=== PATIENT | female | born 1965 | race Caucasian/White ===

== ENCOUNTER 2017-09-29 12:00 | Emergency (ER) | payer OTHER, SELFPAY ==
[2017-09-29 12:01] VITALS: BP 136/74; PULSE 83; RESP 16; TEMP 36.8; O2SAT 97; BMI 31.9
--- NOTE | 2017-09-29 12:25 | ED.VISSUMM ---
- ER Visit Summary Date of Service: 09/29/17 Chief Complaint: Dog bite History of Present Illness: The patient is a 52 F who has a dog bite to the nose. It is her son's dog. He is up-to-date on his immunizations. She states that she needs a tetanus shot. She has no other issues. Physical Examination: Vital signs reviewed. Skin exam reveals a 1.5 cm laceration at the tip of the nose on the right-hand side. It is not through Test Results: None indicated Emergency Department Course and Treatment: Patient was educated that we usually do not repair these. She is understandable. She is a type I diabetic so she will be placed on Augmentin. I will update her tetanus and she will follow-up with her PCP Treatment Plan: [] Disposition: Discharge Impression: Dog bite, nose This note was generated with [employer] dictation software. It may contain incorrect words, spelling, and punctuation that were not noted in review of the chart prior to signing ED Disposition - Plan for ED Patient: Chief Complaint: Bite Referrals: [facility] Doctor,Out of [Primary Care Provider] -
--- NOTE | 2017-09-29 12:26 | ED.DEP ---
ED Disposition - Plan for ED Patient: Disposition: Home or Assisted Living Chief Complaint: Bite Instructions: ED Bite Dog Prescriptions: Amox/Clavulanate Tablet [Augmentin Tablet] 875 mg PO Q12H #14 tab Referrals: [facility] Doctor,Out of [Primary Care Provider] -
[2017-09-29] MEDS: Diphth,Pertuss(Acell),Tet Vac 0.5 ML Vial IM (12:32)
== END 2017-09-29 12:38 | disposition home or self-care (01) ==
LOC: ED 12:34
PROVIDERS: Emergency Provider Emergency Medicine
DX: S00.37XA Other superficial bite of nose, initial encounter (principal); W54.0XXA Bitten by dog, initial encounter; Y93.9 Activity, unspecified; Y92.9 Unspecified place or not applicable; E10.22 Type 1 diabetes mellitus with diabetic chronic kidney disease; E10.40 Type 1 diabetes mellitus with diabetic neuropathy, unspecified; N18.9 Chronic kidney disease, unspecified; Z79.4 Long term (current) use of insulin; Z79.899 Other long term (current) drug therapy
CPT/HCPCS: 90471; 90715; 99283

== ENCOUNTER → 2018-02-20 15:22 | Outpatient (CLI) | payer OTHER, SELFPAY ==
[2018-02-20 17:34] LABS: Microalbumin,Random Urine 20.6 mg/L (NO RANGE EST.); Microalbumin:Creatinine Ratio 22.2 mg/g CRE (<30 mg/g CRE)
[2018-02-20 17:39] LABS: Hemoglobin A1c 7.4 % (4.2-6.3)
[2018-02-20 17:52] LABS: AST(SGOT) 32 U/L (15-37); Alanine Aminotransfer ALT/SGPT 41 U/L (13-56); Albumin, Serum 3.7 g/dL (3.2-5.0); Alkaline Phosphatase 69 U/L (45-117); Anion Gap 7 (5-15); BUN 19 mg/dL (7-18); Calcium,Total 9.1 mg/dL (8.5-10.1); Chloride 102 mmol/L (98-107); Cholesterol 157 mg/dL (200); Creatinine, Serum 1.19 mg/dL (0.55-1.02); EST Glomerular Filtration Rate 51 mL/min (>60); Est Glom Filt Rate - Afr Amer 61 mL/min (>60); Globulin 3.8 g/dL (2.2-4.2); Glucose 158 mg/dL (74-106); High Density Lipoprotein 56 mg/dL; Potassium 4.6 mmol/L (3.5-5.1); Protein, Total 7.5 g/dL (6.4-8.2); Sodium Level 142 mmol/L (136-145); Thyroid Stim Hormone (TSH) 0.53 uIU/mL (0.358-3.74); Triglycerides 75 mg/dL; Very Low Density Lipoprotein 15 mg/dL (5-40)
== END ==
PROVIDERS: Visit Provider Nurse Practitioner
DX: E10.9 Type 1 diabetes mellitus without complications (principal)
CPT/HCPCS: 36415; 80053; 80061; 82043; 82570; 83036; 84443

== ENCOUNTER 2018-03-06 06:39 | Emergency (ER) | payer OTHER, SELFPAY ==
[2018-03-06 06:40] VITALS: BP 105/55; PULSE 80; RESP 18; TEMP 36.6; O2SAT 100; BMI 30.8
[2018-03-06 07:27] LABS: Absolute Lymphocyte Count 1.76 X10^3/ul (0.83-4.51); Absolute Neutrophil Count 5.1 X10^3/uL (2.0-7.7); Basophil# 0.02 X10^3/uL; Basophil% 0.3 % (0-1); Eosinophil# 0.27 X10^3/uL; Eosinophils% 3.5 % (0-5); Hematocrit 34.3 % (37-47); Hemoglobin 11.6 g/dl (12.0-15.0); Lymphocyte # 1.76 X10^3/ul (4.0); Lymphocyte % 22.7 % (19-41); Mean Corp Hgb Conc 33.8 g/gl (32-36); Mean Corpuscular Hgb 31.2 pg (27.0-32.0); Mean Corpuscular Volume 92.2 fL (81-99); Mean Platelet Vol. 8.8 fl (6.2-12.0); Monocyte% 7.8 % (0-10); Neutrophil # 5.08 X10^3/uL (2.7-7.7); Neutrophil % 65.6 % (47-70); Platelet Count 209 K/mm3 (150-450); RBC Distribution Width CV 11.9 % (11.6-14.6); RBC Distribution Width SD 39.1 fl (35.1-43.9); Red Blood Count 3.72 M/mm3 (4.2-5.4); White Blood Count 7.7 K/mm3 (4.4-11.0)
[2018-03-06 07:28] LABS: POSITIVE COUNT NO; POSITIVE DIFFERENTIAL NO; POSITIVE MORPHOLOGY NO
[2018-03-06] MEDS: 0.9% Normal Saline 1,000 ML 1000 ML IV (07:30)
[2018-03-06] MEDS: proMETHazine 25 MG/ML Syringe 12.5 MG IV (07:30)
[2018-03-06] MEDS: HYDROmorphone 1 MG/ML Syringe IV (07:31)
[2018-03-06 07:36] LABS: AST(SGOT) 40 U/L (15-37); Alanine Aminotransfer ALT/SGPT 48 U/L (13-56); Albumin, Serum 3.5 g/dL (3.2-5.0); Alkaline Phosphatase 64 U/L (45-117); Anion Gap 6 (5-15); BUN 26 mg/dL (7-18); BUN/Creat Ratio 17.8 RATIO (10-20); Chloride 101 mmol/L (98-107); Creatinine, Serum 1.46 mg/dL (0.55-1.02); EST Glomerular Filtration Rate 40 mL/min (>60); Est Glom Filt Rate - Afr Amer 48 mL/min (>60); Estimated Creatinine Clearance 37.71 ml/min; Globulin 3.6 g/dL (2.2-4.2); Glucose 195 mg/dL (74-106); Potassium 4.3 mmol/L (3.5-5.1); Protein, Total 7.1 g/dL (6.4-8.2); Sodium Level 141 mmol/L (136-145)
[2018-03-06 07:53] LABS: Lactic Acid 1.1 mmol/L (0.4-2.0)
[2018-03-06 08:23] LABS: Mucous, Urine 0 SEEN /hpf (<or=2+); Squamous Epithelial Cells - UA 0 SEEN /hpf (5-10)
[2018-03-06 08:25] LABS: Color, Urine Yellow (Yellow); Glucose, Dipstick Normal (Normal); Ketone-Dipstick Negative (Negative); Leukocyte Esterase-Dipstick 500 /ul (Negative); Nitrite-Dipstick Negative (Negative); Occult Blood-Urine 250 /ul (Negative); Protein-Dipstick 500 mg/dl (Negative); Specific Gravity, Urine 1.015 (1.002-1.030); Urine Bilirubin Dipstick Negative (Negative); Urine Clarity Turbid (Clear); Urine Urobilinogen Normal (Normal)
[2018-03-06 08:31] LABS: Bacteria 2+ /hpf (None Seen); Red Blood Cells-Urine 5-10 SEEN /hpf (0-5); White Blood Cells >100 SEEN /hpf (0-5)
--- NOTE | 2018-03-06 08:31 | ED.DCSUM_ITS ---
- ER Visit Summary Date of Service: 03/06/18 Chief Complaint: Left flank pain History of Present Illness: The patient is a 52 F who states that she feels that she has a kidney infection. She states she has had this numerous times before. She states that last night she decided that she would take a Cipro this morning but she is awoken during the night with the pain in the left flank that is not controlled with her fentanyl patch. Patient states she has history of diabetes with DKA and has a neurogenic bladder for which she self caths. She denies any fevers but states she feels chilled and has nausea and she took a Phenergan prior to arrival. Physical Examination: Afebrile vital signs are stable Gen: Well-nourished well-developed Head: Normocephalic atraumatic Eyes: Perrl EOMI ENT: TMs clear no rhinorrhea moist mucous membranes Neck: Supple no lymphadenopathy no JVD nontender CVS: Regular rate rhythm no murmurs normal S1-S2 Respiratory: No distress clear to auscultation bilaterally chest nontender Abdomen: Soft left lower quadrant tenderness without guarding or rebound nondistended normal bowel sounds no masses Back: Left CVA tenderness Extremity: Nontender no edema Skin: Normal color no rash Neuro: alert orientated ?3 CN II-XII intact normal strength sensation reflexes gait cerebellar Psych: Normal affect normal mood Test Results: CBC CMP ketones and lactic acid were within the normal range. Urinalysis with greater than 100 white blood cells 2+ bacteria 5-10 red blood cells 0 epithelial cells. Emergency Department Course and Treatment: Patient received IV fluids. She received a dose of the Dilaudid. Patient will receive a prescription for Cipro as she states that this is worked well for her in the past. I do not see a urine culture done at this institution. We will do one today. Patient was given return instructions and notes understanding. Impression: 1. Left pyelonephritis This note was generated with [employer] (acquired by [employer] in 2014) dictation software. It may contain incorrect words, spelling, and punctuation that were not noted in review of the chart prior to signing ED Disposition - Plan for ED Patient: Disposition: Home or Assisted Living Chief Complaint: Flank Pain Instructions: ED Kidney Infec Female Prescriptions: Ciprofloxacin [Cipro] 500 mg PO BID #14 tab Additional Instructions: Drink plenty of fluids Monitor for fever and monitor your blood sugar.
[2018-03-06 09:05] VITALS: BP 129/66; PULSE 71; RESP 16; O2SAT 98
== END 2018-03-06 09:11 | disposition home or self-care (01) ==
PROVIDERS: Emergency Provider Emergency Medicine
DX: N12 Tubulo-interstitial nephritis, not specified as acute or chronic (principal); N31.9 Neuromuscular dysfunction of bladder, unspecified; E78.00 Pure hypercholesterolemia, unspecified; K21.9 Gastro-esophageal reflux disease without esophagitis; E11.22 Type 2 diabetes mellitus with diabetic chronic kidney disease; N18.9 Chronic kidney disease, unspecified; K58.9 Irritable bowel syndrome, unspecified; Z79.82 Long term (current) use of aspirin; Z79.4 Long term (current) use of insulin; Z79.899 Other long term (current) drug therapy
CPT/HCPCS: 80053; 81001; 82009; 83605; 85025; 87086; 87088; 96374; 96375; 99284; J7030; P9612; A4216

== ENCOUNTER → 2018-08-02 16:09 | Outpatient (CLI) | payer OTHER, SELFPAY ==
[2018-08-02 16:07] VITALS: BMI 31.9
[2018-08-02 17:03] LABS: Hemoglobin A1c 7.7 % (4.2-6.3)
[2018-08-02 17:10] LABS: AST(SGOT) 23 U/L (15-37); Alanine Aminotransfer ALT/SGPT 28 U/L (13-56); Alkaline Phosphatase 82 U/L (45-117); Anion Gap 5 (5-15); BUN 30 mg/dL (7-18); BUN/Creat Ratio 23.1 RATIO (10-20); Calcium,Total 9.5 mg/dL (8.5-10.1); Chloride 101 mmol/L (98-107); Cholesterol 191 mg/dL (200); EST Glomerular Filtration Rate 46 mL/min (>60); Est Glom Filt Rate - Afr Amer 55 mL/min (>60); Glucose 172 mg/dL (74-106); High Density Lipoprotein 72 mg/dL; Microalbumin,Random Urine 11.7 mg/L (NO RANGE EST.); Potassium 4.5 mmol/L (3.5-5.1); Sodium Level 138 mmol/L (136-145); Triglycerides 97 mg/dL; Very Low Density Lipoprotein 19 mg/dL (5-40)
== END ==
PROVIDERS: Referring Provider Nurse Practitioner; Visit Provider Nurse Practitioner
DX: E10.9 Type 1 diabetes mellitus without complications (principal)
CPT/HCPCS: 36415; 80053; 80061; 82043; 82570; 83036

== ENCOUNTER → 2020-12-21 11:48 | Outpatient (CLI) | payer OTHER, SELFPAY ==
[2020-12-21 11:08] VITALS: BMI 34.4
[2020-12-21 15:23] LABS: Absolute Lymphocyte Count 1.67 X10^3/uL (0.83-4.51); Absolute Neutrophil Count 5.1 X10^3/uL (2.0-7.7); Basophil# 0.06 X10^3/uL; Basophil% 0.8 % (0-1); Eosinophil# 0.19 X10^3/uL; Eosinophils% 2.6 % (0-5); Hematocrit 38.2 % (37-47); Hemoglobin 12.4 g/dL (12.0-15.0); Lymphocyte # 1.67 X10^3/ul (0.83-4.51); Lymphocyte % 22.5 % (19-41); Mean Corp Hgb Conc 32.5 g/dL (32-36); Mean Corpuscular Hgb 29.4 pg (27.0-32.0); Mean Corpuscular Volume 90.5 fL (81-99); Mean Platelet Vol. 9.8 fl (6.2-12.0); Monocyte# 0.35 X10^3/uL; Monocyte% 4.7 % (0-10); NRBC Flagged by Analyzer 0 % (0-5); Neutrophil # 5.12 X10^3/uL (2.7-7.7); Neutrophil % 69.1 % (47-70); Platelet Count 360 K/mm3 (150-450); RBC Distribution Width CV 11.4 % (11.6-14.6); Red Blood Count 4.22 M/mm3 (4.2-5.4); White Blood Count 7.4 K/mm3 (4.4-11.0)
[2020-12-21 15:48] LABS: ALB/GLOB Ratio 0.9 RATIO (0.9-2.4); AST(SGOT) 22 U/L (15-37); Alanine Aminotransfer ALT/SGPT 32 U/L (13-56); Albumin, Serum 3.8 g/dL (3.2-5.0); Alkaline Phosphatase 90 U/L (45-117); Anion Gap 8 (5-15); BUN 28 mg/dL (7-18); BUN/Creat Ratio 17.3 RATIO (10-20); Calcium,Total 9.8 mg/dL (8.5-10.1); Chloride 97 mmol/L (98-107); Cholesterol 184 mg/dL (200); Creatinine, Serum 1.62 mg/dL (0.55-1.02); EST Glomerular Filtration Rate 35 mL/min (>60); Est Glom Filt Rate - Afr Amer 43 mL/min (>60); Globulin 4.2 g/dL (2.2-4.2); Glucose 328 mg/dL (74-106); High Density Lipoprotein 68 mg/dL; Potassium 4.2 mmol/L (3.5-5.1); Sodium Level 134 mmol/L (136-145); Triglycerides 73 mg/dL; Very Low Density Lipoprotein 15 mg/dL (5-40)
== END ==
LOC: BIMLAB 11:50
PROVIDERS: Visit Provider Internal Medicine Endocrinology, Diabetes & Metabolism
DX: E10.21 Type 1 diabetes mellitus with diabetic nephropathy (principal); E10.22 Type 1 diabetes mellitus with diabetic chronic kidney disease; E78.5 Hyperlipidemia, unspecified; N18.30 Chronic kidney disease, stage 3 unspecified
CPT/HCPCS: 36415; 80053; 80061; 84443; 85025

== ENCOUNTER 2021-10-29 02:19 | Inpatient (IN) | payer OTHER, SELFPAY ==
[2021-10-29] VITALS (17 sets, daily range): BP systolic 130–165; BP diastolic 54–101; PULSE 74–112; RESP 16–19; TEMP 36.4–37.1; O2SAT 92–100; BMI 33.0; BMI 34.4
--- NOTE | 2021-10-29 02:30 | EKG12_ITS ---
Test Reason : NAUSEA Blood Pressure : / mmHG Vent. Rate : 107 BPM Atrial Rate : 107 BPM P-R Int : 152 ms QRS Dur : 096 ms QT Int : 362 ms P-R-T Axes : 064 018 078 degrees QTc Int : 483 ms Sinus tachycardia Nonspecific ST abnormality Abnormal ECG Confirmed by ESSIE LEYVA, CARLOS ALBERTO ([id number]), film editor KIMMIE RAMIREZ ([id number]) on 10/29/2021 9:26:58 AM Referred By: Juanito Zhang Confirmed By:CARLOS ALBERTO FOUNTAIN MD
--- NOTE | 2021-10-29 02:32 | EX.ED.DYSGE1 ---
HPI History of Present Illness Chief Complaint: Hyperglycemia Narrative Narrative: Patient presents via EMS with hyperglycemia. She thinks that she may have the flu. However, this is more gastroenteritis type symptoms with nausea and vomiting, no diarrhea. She denies any fevers or chills. No cough or upper respiratory symptoms. Her symptoms began yesterday morning at around 3 AM, almost 24 hours ago. She has past medical history of type 1 diabetes with tandem insulin pump. Her blood sugars read high in the 400s and she bolused herself 2 units. Her sugars have been running in the 180s according to her . She vomited at least 12 times since this afternoon without any blood in her emesis. She is very nauseated and feels weak and dehydrated. She denies any dysuria or hematuria. No exacerbating or alleviating factors. She has been in DKA previously, but states that when her sugars are not excessively elevated. [facility] Medical History Arthritis Carpal tunnel syndrome Glaucoma Hypoglycemia IBS (irritable bowel syndrome) Kidney disease Neuropathy Obesity Type 1 diabetes mellitus without complications UTI (urinary tract infection) Vision problems Home Medications losartan 50 mg PO DAILY 10/31/13 [History Last Taken 03/03/14 08:00] gabapentin 800 mg PO BID 03/10/14 [History Last Taken Unknown] aspirin 81 mg PO DAILY@0800 07/09/15 [History Last Taken Unknown] fentanyl 50 mcg TRANSDERM. Q72H 07/09/15 [History Last Taken Unknown] ondansetron 4 mg PO Q8H PRN PRN #10 tab 07/09/15 [Rx Last Taken Unknown] venlafaxine 150 mg PO DAILY 07/09/15 [History Last Taken Unknown] lovastatin 10 mg tablet 10 mg PO QHS tab 02/20/18 [History Last Taken Unknown] ciprofloxacin HCl 500 mg PO BID #14 tab 03/06/18 [Rx Last Taken Unknown] ciprofloxacin HCl 500 mg PO PRN PRN 03/06/18 [History Last Taken Unknown] estradiol 0.5 mg PO DAILY 03/06/18 [History Last Taken Unknown] medroxyprogesterone 2.5 mg PO DAILY 03/06/18 [History Last Taken Unknown] multivitamin 1 ea PO DAILY 03/06/18 [History Last Taken Unknown] venlafaxine 75 mg PO QHS 03/06/18 [History Last Taken Unknown] Contour Next Test Strips #150 ea NS 07/30/18 [Rx Last Taken Unknown] Novolog U-100 Insulin aspart 100 unit/mL subcutaneous solution 100 unit CONTINUOUS SUBCUTANEOUS INFUSION .continuous #90 ml NS 07/09/21 [Rx Last Taken Unknown] glucagon (human recombinant) 1 mg solution for injection 1 mg IM ONCE #3 ea 07/09/21 [Rx Last Taken Unknown] meclizine 12.5 mg tablet 12.5 mg PO DAILY 07/09/21 [History Last Taken Unknown] blood-glucose sensor #9 ea 08/26/21 [Rx Last Taken Unknown] blood-glucose transmitter #1 ea 08/26/21 [Rx Last Taken Unknown] Allergy/AdvReac Type Severity Reaction Status Date / Time diphenhydramine HCl Allergy Other Verified 07/09/21 14:41 [From Benadryl] metoclopramide HCl Allergy Other Verified 07/09/21 14:41 [From Reglan] prochlorperazine edisylate Allergy Other Verified 07/09/21 14:41 [From Compazine] prochlorperazine maleate Allergy Other Verified 07/09/21 14:41 [From Compazine] levofloxacin [From Levaquin] AdvReac Intermediate anxious Verified 07/09/21 14:42 Family History Other Asthma Breast cancer Heart disease Social History Smoking Status: Never smoker alcohol intake: never substance use type: does not use what type of physical activity do you participate in: other details: occassionally ROS ROS ED ROS Narrative Constitutional: No fever, no chills. Generalized weakness. HEENT: No sore throat. No neck pain. No loss of vision. No rhinorrhea. Cardiovascular: No chest pain. No palpitations. No pedal edema. Respiratory: No cough, no shortness of breath. Abdominal: No abdominal pain. Positive nausea. At least 12 episodes of bilious vomiting. No diarrhea or problems with bowel movements. Genitourinary: No dysuria. No hematuria. Musculoskeletal: No myalgias. No arthralgias. Neurologic: No headaches. No dizziness. No lightheadedness. Skin: No rash. No change in color. Psychiatric: No depression. No anxiety. EXAM Physical Exam Narrative Exam Narrative: Afebrile. Vital signs noted. HEENT: Normocephalic. Atraumatic. PERRL, EOMI. Neck soft and supple. No point tenderness or step off. Tacky mucous membranes. Cardiovascular: Regular tachycardia. No murmurs, rubs, or gallops appreciated. Respiratory: No tachypnea. Lungs clear to auscultation bilaterally. Gastrointestinal: Abdomen soft, nontender, with normoactive bowel sounds. No rebound or guarding. Neurological: Awake. Alert. Nonfocal, nonlateralizing. Skin: No rash. Normal color. No pallor. Musculoskeletal: No pedal edema. Full range of motion extremities. Const Vital Signs: 10/29/21 02:21 10/29/21 02:25 10/29/21 02:27 Temperature 97.6 F L 97.6 F L Temperature Source Temporal Temporal Pulse Rate 110 H 112 H Respiratory Rate 16 16 Respiratory Pattern Normal Blood Pressure 164/66 H 164/66 H Blood Pressure Mean 98 98 Pulse Ox 99 100 Oxygen Delivery Method Room Air Room Air MDM MDM MDM Narrative Medical decision making narrative: DKA work-up was pursued. She was bolused normal saline and administered Zofran for nausea. I will check a CBC, CMP, lipase along with serum acetone. WBC count normal at 9.2, hemoglobin stable at 11.9 with normal platelet count of 238. Her electrolyte panel shows creatinine elevated at 1.33. Her glucose is elevated at 350. I had ordered 6 units of insulin, however the patient and her refused stating that she is a very brittle diabetic and that she will bottom out and he would rather bolus her 2 units through her insulin pump. I suggested turning off her insulin pump, but they refused. Given her continued nausea and vomiting, I did obtain an EKG which shows sinus tachycardia at [address] changes but no acute STEMI. Of note, her troponin is elevated at 603. She has a small amount of acetone her serum ketones, but she has a normal anion gap of 7. I do not feel that she is in diabetic ketoacidosis. I think she does has hyperglycemia. However, given her elevated troponin, I do not think that it is elevated in the 600s secondary to renal insufficiency. She will be given an aspirin. I discussed the patient with Dr. Virk with cardiology who agrees with weight-based heparin and admission. I will also obtain a chest x-ray. She will be started on weight-based heparin per protocol. She and her were told of the risk of GI bleed and intracranial hemorrhage and acknowledged an understanding. I believe that the low risk of this happening and the benefit of anticoagulation for her elevated troponin outweighs this low risk. Patient will be discussed with Dr. Spaulding for admission. She is in stable condition. Lab Data Attestation: I reviewed the patient's lab results. Labs: Laboratory Results - last 24 hr 10/29/21 10/29/21 10/29/21 02:25 02:25 02:25 WBC 9.2 RBC 3.85 L Hgb 11.9 L Hct 35.1 L MCV 91.2 MCH 30.9 MCHC 33.9 RDW Std Deviation 39.6 RDW Coeff of Jose 11.9 Plt Count 238 MPV 9.2 Immature Gran % (Auto) 0.300 Neut % (Auto) 85.0 H Lymph % (Auto) 9.1 L Morgan % (Auto) 5.1 Eos % (Auto) 0.1 Baso % (Auto) 0.4 Absolute Neuts (auto) 7.8 H Absolute Lymphs (auto) 0.83 Nucleated RBC % 0 Sodium 140 Potassium 3.8 Chloride 101 Carbon Dioxide 32.0 Anion Gap 7 BUN 32 H Creatinine 1.33 H Estim Creat Clear Calc 39.54 Est GFR (MDRD) Af Amer 53 L Est GFR (MDRD) Non-Af 44 L BUN/Creatinine Ratio 24.1 H Glucose 350 H Calcium 10.1 Total Bilirubin 0.50 AST 25 ALT 26 Alkaline Phosphatase 72 Troponin I High Sens 603 H* Total Protein 7.3 Albumin 3.5 Globulin 3.8 Albumin/Globulin Ratio 0.9 Lipase 50 L Acetone Level SMALL H POC Glucose 10/29/21 02:58 WBC RBC Hgb Hct MCV MCH MCHC RDW Std Deviation RDW Coeff of Jose Plt Count MPV Immature Gran % (Auto) Neut % (Auto) Lymph % (Auto) Morgan % (Auto) Eos % (Auto) Baso % (Auto) Absolute Neuts (auto) Absolute Lymphs (auto) Nucleated RBC % Sodium Potassium Chloride Carbon Dioxide Anion Gap BUN Creatinine Estim Creat Clear Calc Est GFR (MDRD) Af Amer Est GFR (MDRD) Non-Af BUN/Creatinine Ratio Glucose Calcium Total Bilirubin AST ALT Alkaline Phosphatase Troponin I High Sens Total Protein Albumin Globulin Albumin/Globulin Ratio Lipase Acetone Level POC Glucose 323 H Radiography Diagnostic Testing: Clinical Impression(s) from Imaging Studies Chest X-Ray 10/29/21 03:24 IMPRESSION: Normal x-ray examination of the chest. Electronically Signed: Leela Porter MD at 3:44 EST , Discharge Plan Dx/Rx/DC Orders Clinical Impression: Hyperglycemia, Non-STEMI (non-ST elevated myocardial infarction) Disposition Disposition: Acute Care Hospital [facility]
[2021-10-29] MEDS: 0.9% Normal Saline 1,000 ML 1000 ML IV (02:38)
[2021-10-29 02:44] LABS: Absolute Lymphocyte Count 0.83 X10^3/uL (0.83-4.51); Absolute Neutrophil Count 7.8 X10^3/uL (2.0-7.7); Basophil# 0.04 X10^3/uL; Basophil% 0.4 % (0-1); Eosinophil# 0.01 X10^3/uL; Eosinophils% 0.1 % (0-5); Hematocrit 35.1 % (37-47); Hemoglobin 11.9 g/dL (12.0-15.0); Lymphocyte # 0.83 X10^3/ul (0.83-4.51); Lymphocyte % 9.1 % (19-41); Mean Corp Hgb Conc 33.9 g/dL (32-36); Mean Corpuscular Hgb 30.9 pg (27.0-32.0); Mean Corpuscular Volume 91.2 fL (81-99); Mean Platelet Vol. 9.2 fl (6.2-12.0); Monocyte# 0.47 X10^3/uL; Monocyte% 5.1 % (0-10); NRBC Flagged by Analyzer 0 % (0-5); Neutrophil # 7.77 X10^3/uL (2.7-7.7); Platelet Count 238 K/mm3 (150-450); RBC Distribution Width CV 11.9 % (11.6-14.6); RBC Distribution Width SD 39.6 fl (35.1-43.9); Red Blood Count 3.85 M/mm3 (4.2-5.4); White Blood Count 9.2 K/mm3 (4.4-11.0)
[2021-10-29 03:06] LABS: ALB/GLOB Ratio 0.9 RATIO (0.9-2.4); AST(SGOT) 25 U/L (15-37); Alanine Aminotransfer ALT/SGPT 26 U/L (13-56); Albumin, Serum 3.5 g/dL (3.2-5.0); Alkaline Phosphatase 72 U/L (45-117); Anion Gap 7 (5-15); BUN 32 mg/dL (7-18); BUN/Creat Ratio 24.1 RATIO (10-20); Calcium,Total 10.1 mg/dL (8.5-10.1); Chloride 101 mmol/L (98-107); Creatinine, Serum 1.33 mg/dL (0.55-1.02); EST Glomerular Filtration Rate 44 mL/min (>60); Est Glom Filt Rate - Afr Amer 53 mL/min (>60); Estimated Creatinine Clearance 39.54 ml/min; Globulin 3.8 g/dL (2.2-4.2); Glucose 350 mg/dL (74-106); Lipase 50 U/L (73-393); Potassium 3.8 mmol/L (3.5-5.1); Protein, Total 7.3 g/dL (6.4-8.2); Sodium Level 140 mmol/L (136-145); Troponin-I HS 603 pg/mL (3.0-54.0)
[2021-10-29 03:06] LABS: Bedside Glucose 323 mg/dL (74-106)
--- NOTE | 2021-10-29 03:24 | RAD_ITS ---
STUDY: X-RAY CHEST REASON FOR EXAM: Female, 56 years old. CAD TECHNIQUE: Single AP portable view of the chest. COMPARISON: None. FINDINGS: The lungs are clear and expanded. There is no demonstrated pleural abnormality. Normal size heart. Normal mediastinum and savita. Normal visualized pulmonary arteries. Normal visualized aortic arch and descending thoracic aorta. Normal visualized thoracic spine. Normal visualized ribs, clavicles, and shoulders. There is no demonstrated abnormality of the visualized soft tissue structures of the upper abdomen. RAD/Chest 1 View (Portable) IMPRESSION: Normal x-ray examination of the chest. Electronically Signed: Leela Porter MD at 3:44 EST ,
[2021-10-29] MEDS: Aspirin 325 MG Tablet PO (03:30)
[2021-10-29] MEDS: Heparin Injection (Vial) 5,000 UNIT/ML VIAL 6000 UNIT IV (04:05)
[2021-10-29 04:08] LABS: International Normalized Ratio 1.1; Prothrombin Time (Protime)PT. 13.8 SECONDS (11.7-14.9)
[2021-10-29 04:09] LABS: Partial Thromboplast Time 24.9 Seconds (24.1-36.2)
[2021-10-29] MEDS: Heparin Injection (Vial) 5,000 UNIT/ML VIAL IV (04:11)
--- NOTE | 2021-10-29 05:33 | PCM.HP.STD ---
HPI - General General Date of Admission: 10/29/21 HPI Narrative LENA BENSON, is a 56 F who presents to the hospital with nausea and vomiting. This is been going on for about 24hours and she denies feeling sick prior to this, she denies eating any strange foods. She denies any diarrhea. No abdominal pain or fevers. She says that normally her blood sugar is very controlled however when EMS arrived it was over 400. She is a type I diabetic and uses an insulin pump and states that this happens whenever she gets sick. She denies any chest pain, or shortness of breath. No lightheadedness or dizziness. The ER she has been tachycardic but not really hypoxic creatinine is a little bit elevated to 1.33 but baseline for her and her blood sugar was elevated to 350. She has a closed anion gap but does not want is giving her any insulin she wants to manage it with her pump. Of note troponin was obtained on admission because of the nausea and it was elevated to 603 repeat is down to 541 however cardiology had already been notified by the ED physician and she was started on a heparin drip. [facility] Medical History Arthritis Carpal tunnel syndrome Glaucoma Hypoglycemia IBS (irritable bowel syndrome) Kidney disease Neuropathy Obesity Type 1 diabetes mellitus without complications UTI (urinary tract infection) Vision problems Home Medications losartan 50 mg PO DAILY 10/31/13 [History Last Taken 03/03/14 08:00] gabapentin 400 mg PO DAILY 03/10/14 [History Last Taken Unknown] aspirin 81 mg PO DAILY@0800 07/09/15 [History Last Taken Unknown] fentanyl 50 mcg TRANSDERM. Q72H 07/09/15 [History Last Taken 10/26/21] ondansetron 4 mg PO Q8H PRN PRN #10 tab 07/09/15 [Rx Last Taken Unknown] venlafaxine 150 mg PO DAILY 07/09/15 [History Last Taken Unknown] lovastatin 10 mg tablet 10 mg PO QHS tab 02/20/18 [History Last Taken Unknown] ciprofloxacin HCl 500 mg PO PRN PRN 03/06/18 [History Last Taken Unknown] estradiol 0.5 mg PO DAILY 03/06/18 [History Last Taken Unknown] medroxyprogesterone 2.5 mg PO DAILY 03/06/18 [History Last Taken Unknown] multivitamin 1 ea PO DAILY 03/06/18 [History Last Taken Unknown] venlafaxine 75 mg PO QHS 03/06/18 [History Last Taken Unknown] Contour Next Test Strips #150 ea NS 07/30/18 [Rx Last Taken Unknown] blood-glucose sensor #9 ea 08/26/21 [Rx Last Taken Unknown] blood-glucose transmitter #1 ea 08/26/21 [Rx Last Taken Unknown] docusate sodium [Colace] 200 mg PO 4X/DAY PRN 10/29/21 [History Last Taken Unknown] insulin aspart U-100 [Novolog U-100 Insulin aspart] 100 unit CONTINUOUS SUBCUTANEOUS INFUSION .continuous 10/29/21 [History Last Taken Unknown] temazepam 30 mg PO QHS 10/29/21 [History Last Taken Unknown] Allergy/AdvReac Type Severity Reaction Status Date / Time diphenhydramine HCl Allergy Other Verified 07/09/21 14:41 [From Benadryl] metoclopramide HCl Allergy Other Verified 07/09/21 14:41 [From Reglan] prochlorperazine edisylate Allergy Other Verified 07/09/21 14:41 [From Compazine] prochlorperazine maleate Allergy Other Verified 07/09/21 14:41 [From Compazine] levofloxacin [From Levaquin] AdvReac Intermediate anxious Verified 07/09/21 14:42 Family History Other Asthma Breast cancer Heart disease Social History Smoking Status: Never smoker alcohol intake: never substance use type: does not use what type of physical activity do you participate in: other details: occassionally ROS Constitutional Constitutional: Denies chills, fatigue, fever(s) or malaise Eyes Eyes: Denies blurry vision ENT HEENT: Denies headache(s) or nasal discharge Cardiovascular Cardiovascular: Denies chest pain, dyspnea on exertion or syncope Respiratory/Chest Respiratory/Chest: Denies cough, shortness of breath at rest or shortness of breath with exertion Gastrointestinal Gastrointestinal: Reports nausea and vomiting; Denies constipation or diarrhea Genitourinary Genitourinary: Denies dysuria Neurologic Neurologic: Denies focal weakness, numbness or tremor(s) Psychiatric Psychiatric: Denies anxiety or depression Vital Signs Vital Signs Vital Signs: 10/29/21 02:21 10/29/21 02:25 10/29/21 02:27 Temperature 97.6 F L 97.6 F L Temperature Source Temporal Temporal Pulse Rate 110 H 112 H Respiratory Rate 16 16 Respiratory Pattern Normal Blood Pressure 164/66 H 164/66 H Blood Pressure Mean 98 98 Pulse Ox 99 100 Oxygen Delivery Method Room Air Room Air Oxygen Flow Rate (L/min) 10/29/21 03:53 10/29/21 04:38 Temperature 98 F Temperature Source Temporal Pulse Rate 74 107 H Respiratory Rate 16 19 H Respiratory Pattern Blood Pressure 156/54 H 165/87 H Blood Pressure Mean 88 113 Pulse Ox 100 92 Oxygen Delivery Method Nasal Cannula Room Air Oxygen Flow Rate (L/min) 2 Weight Weight: 186 lb 4.65 oz Body Mass Index (BMI) 33.0 Physical Exam Const alert, oriented x3 and no apparent distress General Appearance: cooperative HEENT normocephalic Mouth: dry mucous membranes Eyes PERRL, EOMs intact bilaterally and conjunctivae normal Neck supple and no JVD Resp normal respiratory effort, no retractions, no use of accessory muscles and clear to auscultation bilaterally Auscultation: Negative for crackles, rales, rhonchi or wheezes Cardio regular rhythm, S1 normal heart sound, S2 normal heart sound and no murmurs Rate: tachycardic GI soft to palpation, non-tender and non-distended; Negative for hepatosplenomegaly Extremity no clubbing, cyanosis or edema Skin no rashes or lesions noted Neuro no focal motor deficits and no sensory deficits noted Psych affect normal Appearance: appropriate Results Lab / Micro Data Result Diagrams: 10/29/21 02:25 10/29/21 02:25 Labs: Laboratory Results - last 24 hr 10/29/21 02:25: WBC 9.2, RBC 3.85 L, Hgb 11.9 L, Hct 35.1 L, MCV 91.2, MCH 30.9, MCHC 33.9, RDW Std Deviation 39.6, RDW Coeff of Jose 11.9, Plt Count 238, MPV 9.2, Immature Gran % (Auto) 0.300, Neut % (Auto) 85.0 H, Lymph % (Auto) 9.1 L, Meigs % (Auto) 5.1, Eos % (Auto) 0.1, Baso % (Auto) 0.4, Absolute Neuts (auto) 7.8 H, Absolute Lymphs (auto) 0.83, Nucleated RBC % 0 10/29/21 02:25: Sodium 140, Potassium 3.8, Chloride 101, Carbon Dioxide 32.0, Anion Gap 7, BUN 32 H, Creatinine 1.33 H, Estim Creat Clear Calc 39.54, Est GFR (MDRD) Af Amer 53 L, Est GFR (MDRD) Non-Af 44 L, BUN/Creatinine Ratio 24.1 H, Glucose 350 H, Calcium 10.1, Total Bilirubin 0.50, AST 25, ALT 26, Alkaline Phosphatase 72, Troponin I High Sens 603 H*, Total Protein 7.3, Albumin 3.5, Globulin 3.8, Albumin/Globulin Ratio 0.9, Lipase 50 L 10/29/21 02:25: Acetone Level SMALL H 10/29/21 02:58: POC Glucose 323 H 10/29/21 03:45: PT 13.8, INR 1.1, APTT 24.9 Micro: Microbiology 10/29/21 04:00 Nasal Secretion SARS-CoV-2 Antigen (Rapid) - Final Radiology Impression Chest X-Ray 10/29/21 03:24 IMPRESSION: Normal x-ray examination of the chest. Electronically Signed: Leela Porter MD at 3:44 EST Reading Location ID and State: [address] [place] [address] Tel , Service support , Assessment & Plan Assessment/Plan (1) Hyperglycemia: (2) Non-STEMI (non-ST elevated myocardial infarction): PLAN: 1. Possible non-STEMI/HTN/HLD ?She has no previous cardiac history however she does have positive family history with her sister dying in her 30s secondary to an [place] ?She denies any chest pain ?EKG was unremarkable nonischemic ?Second troponin went down to 541 from 603 given her nausea and her vomiting as well as the tachycardia she has had for last 24 hours this could potentially be demand ischemia however cardiology has been consulted in the ER therefore we will continue with the heparin drip and await their consultation ?Continue with her losartan and her lovastatin 2. Type 1 diabetes with hyperglycemia/nausea/vomiting ?Unsure as to the etiology of her nausea and vomiting, she states that she felt fine the day prior ?We will continue with her home insulin pump however will put her on Accu-Cheks AC at bedtime, they state that she is a fairly brittle diabetic and whenever she has outside insulin provided she bottoms out. Her most recent A1c was around 6.5 ?Does not have an anion gap acidosis but she did have a small amount of acetone ?Continue with Zofran and IV fluids 3. Chronic pain ?Stable ?Continue with her fentanyl patch and gabapentin DVT: Heparin drip Charges/Coding Visit Charges OBSV E&M: 53348 Initial observation care L3
[2021-10-29 05:35] LABS: Troponin-I HS 541 pg/mL (3.0-54.0)
--- NOTE | 2021-10-29 06:03 | EKG12_ITS ---
Test Reason : CP ADMIT/NSTEMI Blood Pressure : / mmHG Vent. Rate : 099 BPM Atrial Rate : 099 BPM P-R Int : 126 ms QRS Dur : 096 ms QT Int : 366 ms P-R-T Axes : 020 009 059 degrees QTc Int : 469 ms Normal sinus rhythm Nonspecific ST abnormality Abnormal ECG When compared with ECG of 29-OCT-2021 02:51, No significant change was found Confirmed by ESSIE LEYVA, CARLOS ALBERTO ([id number]), editorial director KIMMIE RAMIREZ ([id number]) on 11/01/2021 2:34:10 PM Referred By: Juanito Zhang Confirmed By:CARLOS ALBERTO FOUNTAIN MD
[2021-10-29] MEDS: 0.9% Normal Saline 1,000 ML 100 ML IV (06:09)
--- NOTE | 2021-10-29 06:21 | NURSING ---
Pts blood sugar was 261 this am. Pt took 2 units of own insulin via her insulin pump at this time.
[2021-10-29 06:26] LABS: Absolute Lymphocyte Count 0.78 X10^3/uL (0.83-4.51); Basophil# 0.04 X10^3/uL; Basophil% 0.4 % (0-1); Hematocrit 34.3 % (37-47); Hemoglobin 11.4 g/dL (12.0-15.0); Lymphocyte # 0.78 X10^3/ul (0.83-4.51); Lymphocyte % 7.5 % (19-41); Mean Corp Hgb Conc 33.2 g/dL (32-36); Mean Corpuscular Hgb 30.1 pg (27.0-32.0); Mean Corpuscular Volume 90.5 fL (81-99); Mean Platelet Vol. 9.2 fl (6.2-12.0); Monocyte# 0.56 X10^3/uL; Monocyte% 5.4 % (0-10); NRBC Flagged by Analyzer 0 % (0-5); Neutrophil % 86.4 % (47-70); Platelet Count 193 K/mm3 (150-450); RBC Distribution Width SD 39.8 fl (35.1-43.9); Red Blood Count 3.79 M/mm3 (4.2-5.4); White Blood Count 10.4 K/mm3 (4.4-11.0)
[2021-10-29 06:26] LABS: Bedside Glucose 261 mg/dL (74-106)
[2021-10-29 06:58] LABS: Anion Gap 6 (5-15); BUN 31 mg/dL (7-18); BUN/Creat Ratio 25.2 RATIO (10-20); Calcium,Total 9.4 mg/dL (8.5-10.1); Chloride 107 mmol/L (98-107); Creatinine, Serum 1.23 mg/dL (0.55-1.02); EST Glomerular Filtration Rate 48 mL/min (>60); Est Glom Filt Rate - Afr Amer 58 mL/min (>60); Estimated Creatinine Clearance 40.87 ml/min; Glucose 234 mg/dL (74-106); Potassium 3.6 mmol/L (3.5-5.1); Sodium Level 141 mmol/L (136-145)
[2021-10-29] MEDS: 0.9% Saline Lock 10 ML Syringe IV (07:43)
[2021-10-29] MEDS: Ondansetron 4 MG/2 ML Vial IV (07:43)
[2021-10-29 09:03] LABS: Troponin-I HS 484 pg/mL (3.0-54.0)
[2021-10-29] MEDS: Venlafaxine XR 150 MG Capsule PO (09:38)
[2021-10-29] MEDS: Losartan Potassium 50 MG Tablet PO (09:38)
[2021-10-29] MEDS: Gabapentin 400 MG Capsule PO (09:38)
--- NOTE | 2021-10-29 10:25 | CON.PCM.CA_ITS ---
Assessment & Plan Assessment/Plan (1) Non-STEMI (non-ST elevated myocardial infarction): PLAN: While patient does not have chest pain, she does not have a clear explanation for her troponin as well. She has risk factors for premature coronary artery disease. Her nausea and vomiting could be an anginal equivalent. Discussed the risks and benefits with the patient and her in detail. We will proceed with coronary angiography. Rest of the management will be based on coronary angiography findings HPI Consult Data Date of Consult: 10/29/21 HPI Narrative HPI Narrative: LENA BENSON, is a 56 F who presents with nausea and vomiting. She denies any chest pain, shortness of breath, dizziness, syncope. She has diabetes and strong family history of premature coronary artery disease. Her troponin in the ER was around 600 and has been trending down since then. Review of systems: All systems reviewed. All else is negative except as in HPI PFSH Medical History (Updated 10/29/21 @ 05:47 by Tiffanie Jhaveri) Arthritis Asthma Carpal tunnel syndrome Chronic pain Depression Diabetes Glaucoma Hypertension Hypertension Hypoglycemia IBS (irritable bowel syndrome) Kidney disease Kidney disease Neuropathy Non-smoker Obesity Type 1 diabetes mellitus without complications UTI (urinary tract infection) Vision loss of left eye Vision problems Home Medications losartan 50 mg PO QHS 10/31/13 [History Last Taken 10/27/21] gabapentin 400 mg PO DAILY 03/10/14 [History Last Taken 10/27/21] aspirin 81 mg PO DAILY@0800 07/09/15 [History Last Taken 10/27/21] fentanyl 50 mcg TRANSDERM. Q72H 07/09/15 [History Last Taken 10/26/21] ondansetron 4 mg PO Q8H PRN PRN #10 tab 07/09/15 [Rx Last Taken 10/28/21] venlafaxine 150 mg PO DAILY 07/09/15 [History Last Taken 10/27/21] lovastatin 10 mg tablet 10 mg PO QHS tab 02/20/18 [History Last Taken 10/27/21] ciprofloxacin HCl 500 mg PO PRN PRN 03/06/18 [History Last Taken Unknown] estradiol 0.5 mg PO QHS 03/06/18 [History Last Taken 10/27/21] medroxyprogesterone 2.5 mg PO QHS 03/06/18 [History Last Taken 10/27/21] multivitamin 1 ea PO DAILY 03/06/18 [History Last Taken 10/27/21] venlafaxine 75 mg PO QHS 03/06/18 [History Last Taken 10/27/21] Contour Next Test Strips #150 ea NS 07/30/18 [Rx Last Taken Unknown] blood-glucose sensor #9 ea 08/26/21 [Rx Last Taken Unknown] blood-glucose transmitter #1 ea 08/26/21 [Rx Last Taken Unknown] docusate sodium [Colace] 200 mg PO 4X/DAY PRN 10/29/21 [History Last Taken 10/27/21] insulin aspart U-100 [Novolog U-100 Insulin aspart] 100 unit CONTINUOUS SUBCUTANEOUS INFUSION .continuous 10/29/21 [History Last Taken 10/27/21] temazepam 30 mg PO QHS 10/29/21 [History Last Taken 10/27/21] Allergy/AdvReac Type Severity Reaction Status Date / Time diphenhydramine HCl Allergy Other Verified 07/09/21 14:41 [From Benadryl] metoclopramide HCl Allergy Other Verified 07/09/21 14:41 [From Reglan] prochlorperazine edisylate Allergy Other Verified 07/09/21 14:41 [From Compazine] prochlorperazine maleate Allergy Other Verified 07/09/21 14:41 [From Compazine] levofloxacin [From Levaquin] AdvReac Intermediate anxious Verified 07/09/21 14:42 Family History Other Asthma Breast cancer Heart disease Social History Smoking Status: Never smoker alcohol intake: never substance use type: does not use what type of physical activity do you participate in: other details: occassionally Physical Exam Const alert and oriented x3 Orientation / Consciousness: awake HEENT normocephalic Eyes no scleral icterus Neck supple Resp normal respiratory effort Cardio regular rate Skin no rashes or lesions noted Neuro oriented x3 Psych mental status grossly normal Risk Stratification Risk Stratification Applicable: No Charges/Coding Visit Charges Inpatient E&M: 55795 Init Hosp L2 Objective Data Vital Signs: Vital Signs Temp Pulse Resp BP Pulse Ox 97.7 F L 99 16 157/101 H 97 10/29/21 09:40 10/29/21 09:40 10/29/21 09:40 10/29/21 09:40 10/29/21 09:40 Oxygen Flow Rate (L/min) 2 Oxygen Delivery Method Room Air Weight: 194 lb 3.636 oz Body Mass Index (BMI) 34.4 Intake & Output: Intake and Output for Last 24 Hours 10/27/21 10/28/21 10/29/21 23:59 23:59 23:59 Intake Total 1000 / 1000 Output Total Balance 999 / 999 Lab / Micro Data Result Diagrams: 10/29/21 06:04 10/29/21 06:04 Labs: Laboratory Results - last 24 hr 10/29/21 02:25: WBC 9.2, RBC 3.85 L, Hgb 11.9 L, Hct 35.1 L, MCV 91.2, MCH 30.9, MCHC 33.9, RDW Std Deviation 39.6, RDW Coeff of Jose 11.9, Plt Count 238, MPV 9.2, Immature Gran % (Auto) 0.300, Neut % (Auto) 85.0 H, Lymph % (Auto) 9.1 L, [facility] % (Auto) 5.1, Eos % (Auto) 0.1, Baso % (Auto) 0.4, Absolute Neuts (auto) 7.8 H, Absolute Lymphs (auto) 0.83, Nucleated RBC % 0 10/29/21 02:25: Sodium 140, Potassium 3.8, Chloride 101, Carbon Dioxide 32.0, Anion Gap 7, BUN 32 H, Creatinine 1.33 H, Estim Creat Clear Calc 39.54, Est GFR (MDRD) Af Amer 53 L, Est GFR (MDRD) Non-Af 44 L, BUN/Creatinine Ratio 24.1 H, Glucose 350 H, Calcium 10.1, Total Bilirubin 0.50, AST 25, ALT 26, Alkaline Phosphatase 72, Troponin I High Sens 603 H*, Total Protein 7.3, Albumin 3.5, Globulin 3.8, Albumin/Globulin Ratio 0.9, Lipase 50 L 10/29/21 02:25: Acetone Level SMALL H 10/29/21 02:58: POC Glucose 323 H 10/29/21 03:45: PT 13.8, INR 1.1, APTT 24.9 10/29/21 05:02: Troponin I High Sens 541 H* 10/29/21 06:04: WBC 10.4, RBC 3.79 L, Hgb 11.4 L, Hct 34.3 L, MCV 90.5, MCH 30.1, MCHC 33.2, RDW Std Deviation 39.8, RDW Coeff of Jose 12.0, Plt Count 193, MPV 9.2, Immature Gran % (Auto) 0.300, Neut % (Auto) 86.4 H, Lymph % (Auto) 7.[address] L, [facility] % (Auto) 5.4, Eos % (Auto) 0.0, Baso % (Auto) 0.4, Absolute Neuts (auto) 9.0 H, Absolute Lymphs (auto) 0.78 L, Nucleated RBC % 0 10/29/21 06:04: Sodium 141, Potassium 3.6, Chloride 107, Carbon Dioxide 28.0, Anion Gap 6, BUN 31 H, Creatinine 1.23 H, Estim Creat Clear Calc 40.87, Est GFR (MDRD) Af Amer 58 L, Est GFR (MDRD) Non-Af 48 L, BUN/Creatinine Ratio 25.2 H, Glucose 234 H, Calcium 9.4 10/29/21 06:19: POC Glucose 261 H 10/29/21 08:03: Troponin I High Sens 484 H* Micro: Microbiology 10/29/21 04:00 Nasal Secretion SARS-CoV-2 Antigen (Rapid) - Final Cardiology Labs/Tests 10/29/21 02:25: WBC 9.2, RBC 3.85 L, Hgb 11.9 L, Hct 35.1 L, MCV 91.2, MCH 30.9, MCHC 33.9, Plt Count 238, MPV 9.2, Immature Gran % (Auto) 0.300, Neut % (Auto) 85.0 H, Lymph % (Auto) 9.1 L, [facility] % (Auto) 5.1, Eos % (Auto) 0.1, Baso % (Auto) 0.4, Absolute Neuts (auto) 7.8 H, Nucleated RBC % 0 10/29/21 02:25: Sodium 140, Potassium 3.8, Chloride 101, Carbon Dioxide 32.0, Anion Gap 7, BUN 32 H, Creatinine 1.33 H, Est GFR (MDRD) Af Amer 53 L, Est GFR (MDRD) Non-Af 44 L, BUN/Creatinine Ratio 24.1 H, Glucose 350 H, Calcium 10.1, Total Bilirubin 0.50 10/29/21 03:45: PT 13.8, INR 1.1, APTT 24.9 10/29/21 06:04: WBC 10.4, RBC 3.79 L, Hgb 11.4 L, Hct 34.3 L, MCV 90.5, MCH 30.1, MCHC 33.2, Plt Count 193, MPV 9.2, Immature Gran % (Auto) 0.300, Neut % (Auto) 86.4 H, Lymph % (Auto) 7.[address] L, [facility] [place] % (Auto) 5.4, Eos % (Auto) 0.0, Baso % (Auto) 0.4, Absolute Neuts (auto) 9.0 H, Nucleated RBC % 0 10/29/21 06:04: Sodium 141, Potassium 3.6, Chloride 107, Carbon Dioxide 28.0, Anion Gap 6, BUN 31 H, Creatinine 1.23 H, Est GFR (MDRD) Af Amer 58 L, Est GFR (MDRD) Non-Af 48 L, BUN/Creatinine Ratio 25.2 H, Glucose 234 H, Calcium 9.4 Rhythm: EKG: ECHO: Stress Test: Cardiac Cath: PCI: CT Surgery: Holter monitor: EPS: PPM: CXR: Chest CT Scan: Radiography Diagnostic Testing: Radiology Impression Chest X-Ray 10/29/21 03:24 IMPRESSION: Normal x-ray examination of the chest. Electronically Signed: Leela Porter MD at 3:44 EST ,
--- NOTE | 2021-10-29 10:26 | NURSING ---
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
[2021-10-29] MEDS: proMETHazine 25 MG/ML Syringe 12.5 MG IM (10:51)
--- NOTE | 2021-10-29 11:28 | ECHOCS_ITS ---
Reason For Study: Elevated Troponin Procedure This was a 2D Doppler, Color Flow transthoracic echocardiogram. Contrast injection was performed. Exam performed portable in patient room. Left Ventricle Normal LV size. Left ventricular systolic function is normal. The estimated ejection fraction is 65 %. Stage 1 diastolic dysfunction. No regional wall motion abnormalities noted. Right Ventricle Normal RV size. Normal systolic function. Atria Normal left atrium. Normal right atrium. Mitral Valve Normal mitral valve. Mild (1+) mitral valve insufficiency. Tricuspid Valve Normal tricuspid valve. Aortic Valve Normal aortic valve. Trisinus/trileaflet aortic valve. Pulmonic Valve Normal pulmonic valve. Great Vessels Normal aortic root. The pulmonary artery is normal size. Normal inferior vena cava. Pericardium/Pleural No pericardial effusion. Medication Diluted definity 2ml given slow IV push to enhance endocardial definition. MMode/2D Measurements & Calculations LVIDd: 4.7 cm IVSd: 0.94 cm Ao root diam: 2.9 cm LVIDs: 2.7 cm LVPWd: 1.0 cm RVDd: 3.4 cm FS: 42.1 % LAV(MOD-bp): 46.5 ml LVAd ap4: 26.8 cm2 SV(MOD-sp4): 47.8 ml LAV(MOD-bp) Indexed: 24.3 ml/m2 LVLd ap4: 7.4 cm LAV(MOD-sp2): 36.9 ml EDV(MOD-sp4): 77.3 ml LAV(MOD-sp4): 43.9 ml EDV(sp4-el): 82.3 ml LVAs ap4: 15.1 cm2 LVLs ap4: 6.3 cm ESV(MOD-sp4): 29.5 ml ESV(sp4-el): 30.6 ml EF(MOD-sp4): 61.8 % EF(sp4-el): 62.9 % SV(sp4-el): 51.8 ml LA A4 area: 17.8 cm2 LA dimension(2D): 3.7 cm RA A4 area: 11.9 cm2 Doppler Measurements & Calculations MV E max rafa: 119.3 cm/sec Lat Peak E' Rafa: 12.6 cm/sec Med Peak E' Rafa: 8.1 cm/sec MV A max rafa: 124.2 cm/sec E/E' lat: 9.5 E/E' med: 14.8 MV E/A: 0.96 Ao V2 max: 188.7 cm/sec LV V1 max: 129.8 cm/sec PA V2 max: 134.6 cm/sec Ao max P.2 mmHg LV V1 max P.7 mmHg Ao V2 mean: 138.1 cm/sec Ao mean P.4 mmHg Ao V2 VTI: 39.3 cm ECHO/Echo Complete W/ Contrast Interpretation Summary Normal LV size. Left ventricular systolic function is normal. The estimated ejection fraction is 65 %. Stage 1 diastolic dysfunction. Mild (1+) mitral valve insufficiency. Contrast injection was performed. Ordering Physician: David Virk Referring Physician: Juanito Zhang Performed By: Maria Esther Burgess, RACHNA, RVT
--- NOTE | 2021-10-29 11:36 | CL.D_ITS ---
Patient Name: LENA BENSON Study Date: 10/29/2021 Performing: Mary Lou Virk MD Ht: 63 inches 160 cm : 1965 Wt: 194.3 lbs 88 kg Age: 56 Gender: female BSA: 1.91 PROCEDURE(S) PERFORMED [id number])[facility] CLINICAL PROFILE AND INDICATIONS Indications: ACS > 24 hrs Heart Failure: None Stress/Imaging Stress/Image Study Performed: No CAD Presentations: Non-STEMI. Symptom onset Date/Time: 10/28/21 Time Not Available CONCLUSIONS CAD as described RECOMMENDATIONS Medical therapy for CAD DESCRIPTION OF PROCEDURE The patient arrived to the procedure lab. The risks and benefits of the procedure as well as a full d escription of our services here and current unavailability of surgical backup were fully explained to the patient and/or their significant other prior to the catheterization. The Timeout was completed, verifying the correct patient and procedure. The patient's procedural site was prepped and draped in the usual fashion. Local anesthetic was given subcutaneously to right radial region with Lidocaine 2% . Using a modified Seldinger technique, arterial access was obtained via the right radial artery, a 6 Fr sheath was inserted. Left Coronary Artery selective angiography was performed in multiple views u sing a 5 Fr. JL3.5 catheter. Right Coronary Artery selective angiography was then performed in multip le views using a 5 Fr. JR 4 catheter.The arterial sheath was pulled and a TR Band was applied for hem ostasis CORONARY ANGIOGRAPHY DOMINANCE: Right Dominant LEFT MAIN: Mild luminal irregularities LEFT ANTERIOR DESCENDING ARTERY: Mild luminal irregularities DIAGONAL 1: Proximal - 50 % Stenosis, small vessel CIRCUMFLEX ARTERY: MID CIRC: 30-40 % Stenosis RIGHT CORONARY ARTERY: Mild luminal irregularities RT PDA: Proximal - 50-60 % Stenosis, small vessel COMPLICATIONS No Complications PROCEDURE MEDICATIONS Versed 2 mg IV Oxygen: 2 L/min via nasal cannula Heparin given IA 10/29/2021 11:04:26 Phenergan 12.5mg IM ^FreeText^ 10/29/2021 10:51:04 Solu-medrol 125 mg IV 10/29/2021 10:51:21 SUMMARY OF HEMODYNAMIC DATA Time AIR REST ECG 10:49:29 AO 131/78 (107) SA 11:08:58 AO 133/61 (92) 11:09:49 Signed By Mary Lou Virk MD On 10/29/2021 11:35:17 Mary Lou Virk MD
[2021-10-29 11:45] LABS: Bedside Glucose 255 mg/dL (74-106)
--- NOTE | 2021-10-29 11:51 | NURSING ---
Pts blood sugar 255. Pt took 2 units of own insulin via her insulin pump at this time.
--- NOTE | 2021-10-29 15:33 | PCM.DC ---
Discharge Instructions Diet Discharge Diet: - (Resume previous home diet) Activity Discharge Activity: Return to Normal Activity Weight Bearing Status: Full weight bearing Follow Up Care Test Results: Test results from this visit will be discussed in further detail at your follow-up appointment, if applicable. Discharge Plan Admission Admit Date/Time: 10/29/21 05:29 Primary Reason for Your Visit: Nausea and vomiting, non-ST MN Attending Provider: Brandon Wiggins Primary Care Provider: Care Physician,No Primary Consulting Providers: David Virk Instructions Additional Instructions / Restrictions: Follow-up with your primary care physician in 2 weeks Discharge Orders/Prescriptions Prescriptions: New promethazine 25 mg tablet 25 mg PO Q6H PRN (Reason: nausea and vomiting) Qty: 20 RF: 0 atorvastatin [Lipitor] 40 mg tablet 40 mg PO DAILY Qty: 30 RF: 0 Continued (DME) Contour Next Test Strips strip See Dose Instructions .ROUTE .MEDSUPPLY Qty: 150 RF: 11 losartan 50 MG tablet 50 mg PO QHS RF: 0 gabapentin 800 MG tablet 400 mg PO DAILY RF: 0 fentanyl 50 MCG patch 50 mcg TRANSDERM. Q72H RF: 0 aspirin 81 MG tablet,chewable 81 mg PO DAILY@0800 RF: 0 venlafaxine 50 MG tablet 150 mg PO DAILY RF: 0 ondansetron 4 MG tablet 4 mg PO Q8H PRN PRN (Reason: Nausea) Qty: 10 RF: 0 multivitamin 1 EACH tablet 1 ea PO DAILY RF: 0 venlafaxine 75 MG capsule,extended release 24hr 75 mg PO QHS RF: 0 medroxyprogesterone 2.5 MG tablet 2.5 mg PO QHS RF: 0 ciprofloxacin HCl 500 MG tablet 500 mg PO PRN PRN (Reason: INFECTION) RF: 0 estradiol 0.5 MG tablet 0.5 mg PO QHS RF: 0 temazepam 30 mg Capsule 30 mg PO QHS RF: 0 docusate sodium [Colace] 100 mg Capsule 200 mg PO 4X/DAY PRN (Reason: Constipation) RF: 0 insulin aspart U-100 [Novolog U-100 Insulin aspart] 100 unit/mL solution 100 unit continuous subcutaneous infusion .continuous RF: 0 (DME) Dexcom G6 Sensor Device See Rx Instructions .ROUTE .MEDSUPPLY Qty: 9 RF: 3 (DME) Dexcom G6 Transmitter Device See Rx Instructions .ROUTE .MEDSUPPLY Qty: 1 RF: 3 Discontinued lovastatin 10 mg tablet 10 mg PO QHS RF: 0 Referrals / Follow Up: Care Physician,No Primary [Primary Care Provider] - Disposition Disposition (needs filled in before D/C Order can be placed): Home, Self Care
[2021-10-29 15:38] LABS: Bacteria 0 SEEN /hpf (None Seen); Mucous, Urine 0 SEEN /hpf (<or=2+); Red Blood Cells-Urine 0 SEEN /hpf (0-5)
[2021-10-29 15:45] LABS: Color, Urine Yellow (Yellow); Glucose, Dipstick 100 mg/dl (Normal); Ketone-Dipstick 15 mg/dl (Negative); Leukocyte Esterase-Dipstick 500 /ul (Negative); Nitrite-Dipstick Negative (Negative); Occult Blood-Urine 10 /ul (Negative); Protein-Dipstick 30 mg/dl (Negative); Urine Bilirubin Dipstick Negative (Negative); Urine Clarity Clear (Clear); Urine Urobilinogen Normal (Normal)
--- NOTE | 2021-10-29 15:55 | CASEMGMT ---
RN [employer] CM to room to meet with patient for initial transition planning/care coordination assessment. AUDRA HENRY introduced self and role at [facility]. Pt voices understanding and consents to assessment at this time. Pt resting in bed in no distress at this time. , Osvaldo, @ bedside. Pt is A/O at this time and answers all questions appropriately. Care providers, pharmacy, and demographics verified/updated at this time. PCP: Dr Dover @ [facility] Specialists: Dr Mcmahan-endocrinology. Sees Neurologist, Urologist, and pain mgmt @ [facility] Preferred Pharmacy:[facility] Insurance: [employer] Prescription Benefit: Yes Living Will/HPOA: Pt does not currently have LW/HCPOA and declines info at this time. LNOK: Osvaldo. Son, Edward Living Arrangements: Lives w/, Edward, in 2-story home. States does well w/stairs. Independent. 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 provides transportation. DME: States has the following DME: Dex-Com Glucometer used in-tandem w/Insulin pump HHC/SNF: No hx of either. No needs identified. Pt wishes to return home and states has no concerns with going home at time of discharge. CM to follow for any discharge planning/needs. Pt voices no concerns/needs at this time. PLAN: Home w/spousal support and discharge plans in place. Felipe FLORES RN, CM
[2021-10-29 16:33] LABS: White Blood Cells 0-5 SEEN /hpf (0-5)
[2021-10-29 16:34] LABS: Renal Epithelial Cells 0-5 SEEN /hpf (0-5); Squamous Epithelial Cells - UA 5-10 SEEN /hpf (5-10)
--- NOTE | 2021-11-01 19:09 | DS.PCM_ITS ---
Providers Date of Admission: 10/29/21 Date of Discharge: 10/29/21 Primary Care Physician: Carola Primary Care Phys Consultations 10/29/21 05:34 Consult: Cardiology Routine Consulting Provider: David Virk Reason for Consult: Non-STEMI EMERGENT Consult: No MD Notified: Yes Date Notified: 10/29/21 Time Notified: 05:32 Method of Notification: Verbal Reason For Visit: NSTEMI / N/V / HYPERGLYCEMIA Diagnosis Discharge Diagnosis (1) Non-STEMI (non-ST elevated myocardial infarction): Status: Acute Code(s): I21.4 - Non-ST elevation (NSTEMI) myocardial infarction Plan: 1. Non-STEMI type II-etiology unclear #2 nonocclusive coronary artery disease #3 nausea and vomiting-etiology unknown #4 type 1 diabetes #5 stage IIIa chronic kidney disease secondary to type 1 diabetes Medications at Discharge Home Medications losartan 50 mg PO QHS 10/31/13 gabapentin 400 mg PO DAILY 03/10/14 aspirin 81 mg PO DAILY@0800 07/09/15 fentanyl 50 mcg TRANSDERM. Q72H 07/09/15 ondansetron 4 mg PO Q8H PRN PRN #10 tab 07/09/15 venlafaxine 150 mg PO DAILY 07/09/15 ciprofloxacin HCl 500 mg PO PRN PRN 03/06/18 estradiol 0.5 mg PO QHS 03/06/18 medroxyprogesterone 2.5 mg PO QHS 03/06/18 multivitamin 1 ea PO DAILY 03/06/18 venlafaxine 75 mg PO QHS 03/06/18 Contour Next Test Strips #150 ea NS 07/30/18 blood-glucose sensor #9 ea 08/26/21 blood-glucose transmitter #1 ea 08/26/21 atorvastatin [Lipitor] 40 mg PO DAILY #30 tab 10/29/21 docusate sodium [Colace] 200 mg PO 4X/DAY PRN 10/29/21 insulin aspart U-100 [Novolog U-100 Insulin aspart] 100 unit CONTINUOUS SUBCUTANEOUS INFUSION .continuous 10/29/21 promethazine 25 mg PO Q6H PRN #20 tab 10/29/21 temazepam 30 mg PO QHS 10/29/21 Hospital Course Operations None Procedures 2-D Echocardiogram and Cardiac catheterization Summary of Care Provided Minutes Spent on Discharge: 31 Hospital Course: This 56-year-old white female with history of type 2 diabetes came to the emergency room at [facility] with chief complaint of nausea and vomiting. Chemistry panel showed a creatinine of 1.33, glucose was 350, BUN was 32. CBC was remarkable for hemoglobin of 11.9, EKG was performed which showed no evidence of ischemic changes. Patient had a troponin performed in the emergency room which was elevated at 603. Chest x-ray was normal. Dori ent had no complaints of any chest pain. Patient was admitted to PCU for acute non-STEMI, she was given antinausea meds and IV fluids. She was seen in consultation by cardiology who took her for cardiac catheterization which showed nonocclusive coronary artery disease. On 10/29/2021, patient was seen and examined: On examination she appeared in good health and spirits, she does not appear to be in any distress. Vital signs as documented. Skin warm and dry and without overt rashes. Neck without JVD, thyroid appears normal, trachea is midline, neck is supple. Lungs clear, normal air movement was noted. Heart exam notable for regular rhythm, normal sounds and absence of murmurs, rubs or gallops. Abdomen unremarkable and without evidence of organomegaly, masses, or abdominal aortic enlargement, bowel sounds are present in all 4 quadrants, no abdominal tenderness was noted. Extremities noned ematous, no cyanosis was noted, no clubbing was noted. Neuro: Cranial nerves II through XII are grossly intact, no focal motor deficits were noted, sensation to light touch and pinprick is intact, motor exam 5/5 throughout. Psych: Patient is alert and oriented x3, she does not appear anxious or depressed, she does not appear agitated. Patient's nausea and vomiting resolved during her hospitalization, on 10/29/2021, patient was discharged home in stable condition. Weight / BMI Weight Weight: 88.1 kg Body Mass Index (BMI) 34.4 ABG / Lab / Microbiology Data Result Diagrams: 10/29/21 06:04 10/29/21 06:04 Microbiology: Microbiology 10/29/21 04:00 Nasal Secretion SARS-CoV-2 Antigen (Rapid) - Final D/C Instructions Discharge Diet: - (Resume previous home diet) Weight Bearing Status: Full weight bearing Meaningful Use Info Meaningful Use Diagnoses (Choose all that apply): AMI AMI/Post PCI/Angioplasty Aspirin given w/in 24hrs of arrival?: Yes ASA at discharge?: Yes Antiplatelet Therapy at Discharge:: No Reason Antiplatelet Therapy not ordered:: not indicated Statins at discharge?: Yes Vahe/ARB at discharge?: Yes Beta Gabriel at discharge?: No Reason Beta Gabriel not ordered:: Allergy (not indicated) Done w/ Acute DC measure.: Yes Documented LVEF (%): 65 Discharge Plan Admission Admit Date/Time: 10/29/21 05:29 Primary Reason for Your Visit: Nausea and vomiting, non-ST DC Attending Provider: Brandon Wiggins Primary Care Provider: Care Physician,No Primary Consulting Providers: David Virk Instructions Additional Instructions / Restrictions: Follow-up with your primary care physician in 2 weeks Discharge Orders/Prescriptions Prescriptions: New promethazine 25 mg tablet 25 mg PO Q6H PRN (Reason: nausea and vomiting) Qty: 20 RF: 0 atorvastatin [Lipitor] 40 mg tablet 40 mg PO DAILY Qty: 30 RF: 0 Continued (DME) Contour Next Test Strips strip See Dose Instructions .ROUTE .MEDSUPPLY Qty: 150 RF: 11 losartan 50 MG tablet 50 mg PO QHS RF: 0 gabapentin 800 MG tablet 400 mg PO DAILY RF: 0 fentanyl 50 MCG patch 50 mcg TRANSDERM. Q72H RF: 0 aspirin 81 MG tablet,chewable 81 mg PO DAILY@0800 RF: 0 venlafaxine 50 MG tablet 150 mg PO DAILY RF: 0 ondansetron 4 MG tablet 4 mg PO Q8H PRN PRN (Reason: Nausea) Qty: 10 RF: 0 multivitamin 1 EACH tablet 1 ea PO DAILY RF: 0 venlafaxine 75 MG capsule,extended release 24hr 75 mg PO QHS RF: 0 medroxyprogesterone 2.5 MG tablet 2.5 mg PO QHS RF: 0 ciprofloxacin HCl 500 MG tablet 500 mg PO PRN PRN (Reason: INFECTION) RF: 0 estradiol 0.5 MG tablet 0.5 mg PO QHS RF: 0 temazepam 30 mg Capsule 30 mg PO QHS RF: 0 docusate sodium [Colace] 100 mg Capsule 200 mg PO 4X/DAY PRN (Reason: Constipation) RF: 0 insulin aspart U-100 [Novolog U-100 Insulin aspart] 100 unit/mL solution 100 unit continuous subcutaneous infusion .continuous RF: 0 (DME) Dexcom G6 Sensor Device See Rx Instructions .ROUTE .MEDSUPPLY Qty: 9 RF: 3 (DME) Dexcom G6 Transmitter Device See Rx Instructions .ROUTE .MEDSUPPLY Qty: 1 RF: 3 Discontinued lovastatin 10 mg tablet 10 mg PO QHS RF: 0 Referrals / Follow Up: Care Physician,No Primary [Primary Care Provider] - Disposition Disposition (needs filled in before D/C Order can be placed): Home, Self Care Charges/Coding Visit Charges Inpatient E&M: 15621 Disch Hosp
== END 2021-10-29 16:44 | disposition home or self-care (01) | DRG 282 ==
LOC: ED 03:31 → PCU 05:37
PROVIDERS: Admitting Provider Family Medicine; Emergency Provider Emergency Medicine; Referring Provider Family Medicine; Visit Provider Internal Medicine
DX: I21.4 Non-ST elevation (NSTEMI) myocardial infarction (principal); E10.40 Type 1 diabetes mellitus with diabetic neuropathy, unspecified; E10.22 Type 1 diabetes mellitus with diabetic chronic kidney disease; E10.65 Type 1 diabetes mellitus with hyperglycemia; Z79.4 Long term (current) use of insulin; N18.31 Chronic kidney disease, stage 3a; I12.9 Hypertensive chronic kidney disease with stage 1 through stage 4 chronic kidney disease, or unspecified chronic kidney disease; M19.90 Unspecified osteoarthritis, unspecified site; J45.909 Unspecified asthma, uncomplicated; I25.10 Atherosclerotic heart disease of native coronary artery without angina pectoris; G89.29 Other chronic pain; E66.9 Obesity, unspecified; Z68.34 Body mass index [BMI] 34.0-34.9, adult; Z79.82 Long term (current) use of aspirin; Z79.899 Other long term (current) drug therapy; Z96.41 Presence of insulin pump (external) (internal)
CPT/HCPCS: 36415; 71045; 80048; 80053; 81001; 82009; 82962; 83690; 84484; 85025; 85610; 85730; 87426; 93005; 93306; 93454; 99152; 99153; 99285; J7030; Q9957; Q9967; A4216; C1769; C1894; C8929; J2405

== ENCOUNTER 2025-05-10 10:54 | Observation (INO) | payer OTHER, SELFPAY ==
[2025-05-10] VITALS (8 sets, daily range): BP systolic 141–148; BP diastolic 73–97; PULSE 74–86; RESP 14–18; TEMP 36.1–36.8; O2SAT 93–99; BMI 38.0; BMI 35.4
--- NOTE | 2025-05-10 11:13 | CT_ITS ---
PROCEDURE: BRAIN/HEAD WITHOUT CONTRAST; SPINE CERVICAL WITHOUT CONTRAS 05/10/2025 REASON FOR EXAM: FALL Same level fall. TECHNIQUE: Procedure Code: CTBR; CTSPC Modality: CT Procedure: BRAIN/HEAD WITHOUT CONTRAST; SPINE CERVICAL WITHOUT CONTRAS Coronal and Sagittal reconstruction series were provided. One or more dose reduction techniques were used (e.g., Automated exposure control, adjustment of the mA and/or kV according to patient size, use of iterative reconstruction technique. RADIATION DOSE SUMMARY: CTDlvol: 75 mGy DLP: 1421 mGycm COMPARISON: None. FINDINGS: CT brain Cerebrum: Age-appropriatecerebral volume. Negative for mass the frontal, parietal, temporal and occipital lobes otherwisenegative. White matter: Negative for periventricular white matter changes. Cerebellum: Negative. Negative for mass. Negative for acute infarction. CSF pathways and ventricles: Negative. Negative for ventricular dilatation or obstruction. Basal ganglia and thalami: Negative. No acute infarctions. Brainstem: Midbrain, tee and medulla otherwisenegative. Calvarium: Negative. Negative for fractures. Orbital structures: Artificial left globe. Extraocular muscles negative. Paranasal sinuses: No air fluid levels. Remainder of the sinuses negative. Vascular structures: Mild calcifications of the intracranial structures. Other: : Negative for acute intracranial hemorrhage. Negative for acute infarction. CT cervical spine Cervical spine: Odontoid normal. C1-2 interface negative. Negative for degenerative disc disease of the cervical spine. Negative for facet joint hypertrophy of the cervical spine. Vertebral body heights and alignment otherwise negative. Vascular calcifications of the vertebral arteries. Negative for fractures or dislocations. Cervicothoracic junction negative. Adjacent structures otherwise negative. Remainder of exam negative. CT/Spine Cervical without Contras IMPRESSION: Negative for acute intracranial pathology. Negative for acute abnormality of the cervical spine. Reading Location: [id number]
--- NOTE | 2025-05-10 11:18 | EX.ED.DYSGE1 ---
HPI History of Present Illness Chief Complaint: Syncope Narrative Narrative: Patient is a 59-year-old female with past medical history of hypertension, depression, diabetes, chronic kidney disease, neuropathy, IBS who presented to the emergency department the chief complaint of passing out. According to the patient this morning she took a piece of pumpkin bread and states that she went to eat this started choking she went to the refrigerator and notes that she went to get a drink and notes that she woke up on the ground. Patient states that she bit her tongue. According to the at bedside he arrived home this morning and saw her prior to going to bed was normal. at bedside states that he woke up and found her lying on the ground and she had vomited. He states that when EMS arrived her blood pressure was elevated in the 200s and she had some vomiting and route. They note that her blood pressure is better now. Patient states that she had a bowel movement yesterday and denies any black/dark tarry stools denies any blood in her stool. Denies any history of seizures. Patient states that she did not peer self during this event. [facility] Medical History Rib fractures Essential hypertension Nonobstructive atherosclerosis of coronary artery Vision loss of left eye Depression Diabetes Chronic pain Kidney disease Asthma Non-smoker Obesity Diabetes Glaucoma Carpal tunnel syndrome Arthritis Vision problems Neuropathy Kidney disease IBS (irritable bowel syndrome) Hypoglycemia Type 1 diabetes mellitus without complications UTI (urinary tract infection) Chronic sinusitis Allergic rhinitis GERD (gastroesophageal reflux disease) Asthma DM type 1 causing renal disease DM type 1 (diabetes mellitus, type 1) Legal blindness Home Medications ?Medication ?Instructions ?Recorded ?Last Taken ?Type aspirin 81 mg chewable tablet 81 mg PO DAILY@0800 heart health 07/09/15 10/27/21 History estradiol 0.5 mg tablet 0.5 mg PO QHS MENOPAUSE SYMPTOMS 03/06/18 10/27/21 History medroxyprogesterone 2.5 mg tablet 2.5 mg PO QHS HORMONE 03/06/18 10/27/21 History multivitamin 1 ea PO DAILY GENERAL HEALTH 03/06/18 10/27/21 History blood-glucose sensor (Dexcom G6 #9 ea 08/26/21 Unknown Rx Sensor device) blood-glucose transmitter (Dexcom #1 ea 08/26/21 Unknown Rx G6 Transmitter device) atorvastatin 40 mg tablet (Lipitor) 40 mg PO DAILY #30 tabs 10/29/21 Unknown Rx docusate sodium 100 mg capsule 200 mg PO 4X/DAY PRN Constipation 10/29/21 10/27/21 History (Colace) insulin lispro 100 unit/mL 100 unit continuous subcutaneous 12/28/22 Unknown Rx subcutaneous solution (Humalog infusion .continuous #90 mL U-100 Insulin) fentanyl 62.5 mcg/hour transdermal 1 patch topical Q3D 05/10/25 Unknown History patch gabapentin 400 mg capsule 400 mg PO BID 05/10/25 Unknown History imipramine pamoate 100 mg capsule 100 mg PO QHS 05/10/25 Unknown History insulin pump cart,auto,BT,G6/7 05/10/25 Unknown History (Omnipod 5 G6-G7 Pods (Gen 5) subcutaneous cartridge) losartan 50 mg tablet 50 mg PO DAILY 05/10/25 Unknown History trimethoprim 100 mg tablet 100 mg PO 05/10/25 Unknown History venlafaxine 150 mg 150 mg PO DAILY 05/10/25 Unknown History capsule,extended release 24 hr venlafaxine 75 mg tablet PO 05/10/25 Unknown History Allergy/AdvReac Type Severity Reaction Status Date / Time diphenhydramine HCl (From Allergy Other Verified 05/10/25 11:04 Benadryl) Iodinated Contrast Media Allergy Vomiting Verified 05/10/25 11:04 (DYEE) metoclopramide HCl (From Allergy Other Verified 05/10/25 11:04 Reglan) prochlorperazine edisylate Allergy Other Verified 05/10/25 11:04 (From Compazine) prochlorperazine maleate Allergy Other Verified 05/10/25 11:04 (From Compazine) levofloxacin (From Levaquin) AdvReac Intermediate anxious Verified 05/10/25 11:04 Family History Other Asthma Breast cancer Heart disease Surgical History History of left heart catheterization (10/29/21) Social History Smoking Status: Never smoker alcohol intake: never substance use type: does not use what type of physical activity do you participate in: other details: occassionally ROS ROS ED ROS Narrative Constitutional: Denies any fevers, chills, headaches, lightheadedness, dizziness Eyes: Denies double vision Cardiovascular: Denies chest pain or palpitations Respiratory: Denies coughing wheezing shortness of breath Abdomen: Complains of nausea and vomiting denies any diarrhea denies any abdominal pain : Denies any urinary symptoms Neurological: Denies any numbness, tingling complains of passing out as noted above with biting her tongue Musculoskeletal: Denies any pain from musculoskeletal standpoint Skin: Denies any rashes or lesions EXAM Physical Exam Narrative Exam Narrative: General: Patient was lying in bed rest comfortably did not appear to be in acute distress Head: Atraumatic, normocephalic Eyes: PERRL bilaterally, no conjunctival injection noted Neck: Soft, supple, trachea midline Cardiovascular: Regular rate and rhythm Respiratory: Clear to auscultation bilaterally Abdomen: Soft, nondistended, no tenderness palpation Musculoskeletal: All bony prominences palpated joints taken through full range of motion no pain elicited Extremities: +5/5 strength noted in the bilateral upper and lower extremities, no pedal edema on exam Neurological: Patient follow commands that she was at [facility] the year is 2024 Skin: Warm, dry, intact no rashes or lesions noted Const Vital Signs: 05/10/25 10:56 05/10/25 11:04 05/10/25 11:05 Temperature 97.6 F L Temperature Source Oral Pulse Rate 77 Respiratory Rate 16 Respiratory Effort Normal Non-Labored Respiratory Pattern Normal Blood Pressure 148/97 H Blood Pressure Mean 114 Pulse Ox 93 Oxygen Delivery Method Room Air Room Air 05/10/25 13:12 05/10/25 13:15 05/10/25 13:30 Temperature Temperature Source Pulse Rate Respiratory Rate Respiratory Effort Respiratory Pattern Blood Pressure Blood Pressure Mean Pulse Ox 96 99 99 Oxygen Delivery Method 05/10/25 13:45 05/10/25 14:00 Temperature Temperature Source Pulse Rate 74 Respiratory Rate 14 Respiratory Effort Respiratory Pattern Blood Pressure 148/97 H Blood Pressure Mean 114 Pulse Ox 99 96 Oxygen Delivery Method MDM MDM MDM Narrative Medical decision making narrative: Patient is a 59-year-old female who presents to the emergency department the chief complaint of syncopal episode with biting her tongue. On the differential diagnose includes but not limited to cranial hemorrhage, ACS, pneumonia, pneumothorax, seizure. Once workup is obtained reviewed she will be reevaluated. Patient's CBC was reviewed and showed no evidence leukocytosis white blood count 4.7, he was 11.7, plate count 159. Patient sodium was 130, potassium normal 4.3, creatinine is 1.63 she has underlying chronic kidney disease this is appears to be around her baseline. Patient lactic acid less than 1, troponin was 156 with a delta troponin of 432. Patient EKG showed sinus rhythm with a rate of 79 bpm with a IA interval 186. Patient's CT head brain without contrast showed no acute cranial pathology and C-spine reviewed showed no acute cervical fracture or thesis. Patient's chest x-ray reviewed by myself by radiology showed no acute cardiopulmonary processes. Discussed the case with patient relations director Dr. Ayala who is recommending placing the patient on heparin drip and admitted to the hospital. Will discuss case with hospitalist for admission for NSTEMI and syncope. Discussed case with hospitalist Dr. Aguilera who accepts patient for admission. Patient notified is agreeable to plan all course concerns answered. Critical care time 37 minutes Lab Data Labs: Laboratory Results - last 24 hr 05/10/25 05/10/25 05/10/25 11:25 11:50 14:00 WBC 4.7 RBC 3.92 L Hgb 11.7 L Hct 34.7 L MCV 88.5 MCH 29.8 MCHC 33.7 RDW Std Deviation 39.3 RDW Coeff of Jose 12.3 Plt Count 159 MPV 9.3 Immature Gran % (Auto) 0.200 Neut % (Auto) 73.0 H Lymph % (Auto) 20.5 Dale % (Auto) 6.3 Eos % (Auto) 0.0 Baso % (Auto) 0.0 Absolute Neuts (auto) 3.5 Absolute Lymphs (auto) 0.97 Nucleated RBC % 0 Sodium 138 Potassium 4.3 Chloride 100 Carbon Dioxide 27.0 Anion Gap 11 BUN 33 H Creatinine 1.63 H Estim Creat Clear Calc 41.84 L Est GFR (MDRD) Non-Af 36 L BUN/Creatinine Ratio 20.1 H Glucose 312 H Lactic Acid < 1.0 Calcium 9.4 Troponin T High Sens 156 H* Troponin T Hi Sens 2 Hr 432 H* Radiography Diagnostic Testing: Clinical Impression(s) from Imaging Studies Brain CT 05/10/25 11:13 IMPRESSION: Negative for acute intracranial pathology. Negative for acute abnormality of the cervical spine. Reading Location: [facility] Cervical Spine CT 05/10/25 11:13 IMPRESSION: Negative for acute intracranial pathology. Negative for acute abnormality of the cervical spine. Reading Location: [facility] Chest X-Ray 05/10/25 11:35 IMPRESSION: Negative chest Reading Location: [facility] Discharge Plan Triage Chief Complaint: Syncope ED Provider: Leonardo Stanford Dx/Rx/DC Orders Clinical Impression: Diabetes, Stage 3 chronic kidney disease due to type 1 diabetes mellitus, Essential hypertension, Syncope, Non-ST elevation MT (NSTEMI) Prescriptions: No Action aspirin 81 MG tablet,chewable 81 mg PO DAILY@0800 multivitamin 1 EACH tablet 1 ea PO DAILY medroxyprogesterone 2.5 MG tablet 2.5 mg PO QHS estradiol 0.5 MG tablet 0.5 mg PO QHS docusate sodium [Colace] 100 mg Capsule 200 mg PO 4X/DAY PRN (Reason: Constipation) Rx Instructions: pt states she take 9 every day atorvastatin [Lipitor] 40 mg tablet 40 mg PO DAILY Qty: 30 0RF losartan 50 mg tablet 50 mg PO DAILY venlafaxine 75 mg tablet PO gabapentin 400 mg capsule 400 mg PO BID imipramine pamoate 100 mg capsule 100 mg PO QHS venlafaxine 150 mg capsule,extended release 24hr 150 mg PO DAILY trimethoprim 100 mg tablet 100 mg PO fentanyl 62.5 mcg/hour patch 72 hour 1 patch topical Q3D (DME) Omnipod 5 G6-G7 Pods (Gen 5) Cartridge subcut (DME) Dexcom G6 Sensor Device See Rx Instructions .ROUTE .MEDSUPPLY Qty: 9 3RF Rx Instructions: As directed (DME) Dexcom G6 Transmitter Device See Rx Instructions .ROUTE .MEDSUPPLY Qty: 1 3RF Rx Instructions: As directed insulin lispro [Humalog U-100 Insulin] 100 unit/mL solution 100 unit continuous subcutaneous infusion .continuous Qty: 90 0RF Primary Care Provider: Pat Dover Referrals: Pat Dover MD [Primary Care Provider] - Print Language: Occitan Disposition Disposition: Acute Care Hospital [facility]
[2025-05-10] MEDS: 0.9% Normal Saline (1000mL) 1,000 ML 999 ML IV (11:23)
[2025-05-10 11:33] LABS: Hematocrit 34.7 % (37-47); Hemoglobin 11.7 g/dL (12.0-15.0); Immature Granulocytes Count 0.010 X10^3/uL (0.0-0.0); Mean Corp Hgb Conc 33.7 g/dL (32-36); Mean Corpuscular Volume 88.5 fL (81-99); Mean Platelet Vol. 9.3 fl (6.2-12.0); NRBC Flagged by Analyzer 0 % (0-5); Platelet Count 159 K/mm3 (150-450); RBC Distribution Width CV 12.3 % (11.6-14.6); RBC Distribution Width SD 39.3 fl (35.1-43.9); Red Blood Count 3.92 M/mm3 (4.2-5.4); White Blood Count 4.7 K/mm3 (4.4-11.0)
--- NOTE | 2025-05-10 11:35 | RAD_ITS ---
PROCEDURE: CHEST PA AND LATERAL 05/10/2025 REASON FOR EXAM: SYNCOPE TECHNIQUE: Procedure Code: RADCXR Modality: DX Procedure: CHEST PA AND LATERAL COMPARISON: October 2021 FINDINGS: Hardware and support lines: None. Heart: Negative. Lungs: Negative for infiltrates, or pulmonary edema. Pleura: No pleural thickening. No pleural effusion. Mediastinum and aorta: Negative for hilar adenopathy. Normal aorta. Bones: Age-appropriate degenerative changes of the spine. Other: Remainder of the exam negative. RAD/Chest PA and Lateral IMPRESSION: Negative chest Reading Location: [id number]
--- OUTSIDE RECORDS SUMMARY | 2025-05-10 11:48 | XMS RPT_ITS | CCD ---
Author Organization [facility] Care Team Providers Care Store Assistant Name Role Phone Anna Mancilla Primary Care Provider Deep Tsang Primary Care Provider Azael, Verlaine L Primary Care Provider Mul[place] cokery R Primary Care Provider Azeal DO, Verlaine L Primary Care Provider Deep Tsang Primary Care Provider Mullinix DO Anna R Primary Care Provider Azael DO, Verlaine L Primary Care Provider Azael DO, Verlaine L Primary Care Provider Niecy Addison MD Primary Care Provider Azael DO, Verlaine L Primary Care Provider Azael, Verlaine Primary Care Unavailable Azael, Verlaine Referring Unavailable Azael, Verlaine Attending Unavailable Azael, Verlaine Primary Care Unavailable Azael, Verlaine Referring Unavailable Azael, Verlaine Attending Unavailable Azael, Verlaine Primary Care Unavailable Azael, Verlaine Referring Unavailable UMAIR DALEY Attending Unavailable Azael, Verlaine Primary Care Unavailable Azael, Verlaine Referring Unavailable Azael, Verlaine Attending Unavailable Azael, Verlaine Primary Care Unavailable Azael, Verlaine Referring Unavailable Rosibel Perez Attending Unavailable Azael, Verlaine Primary Care Unavailable Azael, Verlaine Referring Unavailable Sharan Mansfield Attending Unavailable Azael, Verlaine Primary Care Unavailable Azael, Verlaine Referring Unavailable Azael, Verlaine Attending Unavailable Azael, Verlaine Primary Care Unavailable Azael, Verlaine Referring Unavailable EricaLillian Attending Unavailable Azael, Verlaine Primary Care Unavailable Azael, Verlaine Referring Unavailable HornbeckViviana lewissa Attending Unavailable Deep Tsang Primary Care Provider Azael LEYVA, Verlaine Limbo Primary Care Provider KATELYNN JAIME Attending Unavailab le AZEAL, VERLAINE LIMBO Primary Care Unavailab le Azael DO, Verlaine L Primary Care Provider Azael DO, Verlaine L Primary Care Provider [phone] Care Physician, No Primary Referring Unava ilable Minnie Galaviz Attending Unavailable Care Physician, No Primary Primary Care Unava ilable Care Physician, No Primary Referring Unava ilable Minnie Galaviz Attending Unavailable Care Physician, No Primary Primary Care Unava ilable Care Physician, No Primary Referring Unava ilable Care Physician, No Primary Primary Care Unava ilable Bert Mcmahan Attending Unavailable Care Physician, No Primary Referring Unava ilable Minnie Galaviz Attending Unavailable Care Physician, No Primary Primary Care Unava ilable ArianTiti ordoñez Unavailable Unavailable Unavailable JORDY TYSON Attending Unavailable AZAEL, VERLAINE LIMBO Primary Care Unavailab GAVIN Holden Referring Unavailable AZAEL, VERLAINE LIMBO Primary Care Unavailab GAVIN Holden Referring Unavailable AZAEL, VERLAINE LIMBO Primary Care Unavailab GAVIN Holden Referring Unavailable AZAEL, VERLAINE LIMBO Primary Care Unavailab le Otto II, Dr. Gavin Bain Attending Unavai lable Otto II, Dr. Gavin Bain Referring Unavai lable Newbill, Mr. Titi Sams Primary Care Unavail able Otto II, Dr. Gavin Bain Referring Unavai lable Newbill, Mr. Titi Sams Primary Care Unavail able Otto II, Dr. Gavin Bain Attending Unavai lable Otto II, Dr. Gavin Bain Referring Unavai lable Newbill, Mr. Titi Sams Primary Care Unavail able Otto II, Dr. Gavin Bain Attending Unavai lable Azael DO, Verlaine L Primary Care Provider [phone] Titi Mallory PA-C Primary Care Provider Deep Tsang Primary Care Provider TITI MALLORY Primary Care Unavailable Azael LEYVA, Verlaine Limbo Primary Care Provider LOC HDEZ Attending Unavailable AZAEL, VERLAINE LIMBO Primary Care Unavailab le AZAEL, VERLAINE LIMBO Primary Care Unavailab KOKI Figueroa Attending Unavailable FERN JACKSON Attending Un available AZAEL, VERLAINE LIMBO Primary Care Unavailab le AZAEL, VERLAINE LIMBO Primary Care Unavailab le FERN JACKSON Attending Un available AZAEL, VERLAINE LIMBO Primary Care Unavailab le AZAEL, VERLAINE LIMBO Primary Care Unavailab le Titi Mallory PA-C Primary Care Provider [phone] GAVIN OTTO Attending Unavailable TITI MALLORY Primary Care Unavailable GAVIN OTTO Attending Unavailable TITI MALLORY Primary Care Unavailable AZAEL, VERLAINE Attending Unavailable AZAEL, VERLAINE Primary Care Unavailable AZAEL, VERLAINE Attending Unavailable AZAEL, VERLAINE Primary Care Unavailable AZAEL, VERLAINE Attending Unavailable AZAEL, VERLAINE Primary Care Unavailable SUSAN COLE Attending Unavailable AZAEL, VERLAINE Primary Care Unavailable AZAEL, VERLAINE Attending Unavailable AZAEL, VERLAINE Referring Unavailable AZAEL, VERLAINE Primary Care Unavailable AZAEL, VERLAINE Attending Unavailable AZAEL, VERLAINE Primary Care Unavailable AZAEL, VERLAINE Attending Unavailable AZAEL, VERLAINE Primary Care Unavailable Allergies Allergy Classification Reported Allergen(s) Allergy Type Date of Onset Reaction(s) Facility diphenhydrAMINE (5 sources) diphenhydrAMINE Drug Allergy 007 Agitation [facility]agon[facility] (5 sources) Metoclopramide Drug Allergy 001 Other (See Comments) [facility] Work Phone: Opioid Agonists (4 sources) oxyCODONE Drug Allergy 017 Anxiety, Other (See Comments) [facility] Work Phone: Prochlorperazine (5 sources) Prochlorperazine Drug Allergy 001 [facility] Work Phone: (20 sources) diphenhydrAMINE; Translations: [DIPHENHYDRAMINE] Drug Allergy 007 Agitation [place], [place] (20 sources) Metoclopramide; Translations: [METOCLOPRAMIDE] Drug Allergy 001 Other (See Comments), Intolerance, Other, Unknown [place], [place] (20 sources) oxyCODONE; Translations: [OXYCODONE] Drug Allergy 017 Anxiety, Other (See Comments), Other [place], [place] (20 sources) Prochlorperazine; Translations: [prochlorperazine maleate] Drug Allergy 017 [place] (12 sources) Prochlorperazine; Translations: [Compazine] Drug Allergy 001 Unknown, Other [facility] (3 sources) Nitrofurantoin Drug Allergy 003 Other (See Comments) [place] (20 sources) levoFLOXacin; Translations: [LEVOFLOXACIN] Drug Allergy 021 Other (See Comments), Other: See Comments, Other, Unknown, Anxiety [facility] Work Phone: (20 sources) Antihistamines; Translations: [ANTIHISTAMINES] Drug Intolerance [address] [facility] Work Phone: (20 sources) Nitrofurans (Antibiotic); Translations: [NITROFURAN ANALOGUES] Propensity to adverse reactions 003 Intolerance, Unknown [facility] Work Phone: (20 sources) Phenothiazine; Translations: [PHENOTHIAZINES] Propensity to adverse reactions 001 Intolerance, Unknown [facility] Work Phone: (20 sources) Nitrofurantoin Drug Allergy 003 [facility] (20 sources) Phenothiazine Drug Intolerance 001 [facility] (20 sources) Iodinated Contrast Media; Translations: [IODINATED CONTRAST MEDIA] Drug Allergy 022 Unknown, Nausea/vomiti ng [facility] (1 source) diphenhydrAMINE Drug Allergy 023 [facility] (1 source) levoFLOXacin Drug Allergy 023 [facility] (3 sources) Metoclopramide; Translations: [METOCLOPRAMIDE HCL] Drug Allergy 023 [facility] (1 source) Prochlorperazine Drug Allergy 023 [facility] (1 source) Iodinated Contrast Media Drug allergy (disorder) 023 [facility] (2 sources) diphenhydrAMINE; Translations: [Benadryl CAPS] Drug Allergy [facility] Work Phone: (3 sources) diphenhydrAMINE Drug Allergy 007 Agitation, Unknown, Other [facility] Work Phone: (5 sources) Iodine; Translations: [IODINE] Drug Allergy 023 Unknown [facility] Work Phone: (3 sources) Metoclopramide Drug Allergy 023 Unknown [facility] Work Phone: (5 sources) Antihistamine-1; Translations: [ANTIHISTAMINE-1] Drug Intolerance 003 Unknown [facility] (20 sources) Amitriptyline Drug Allergy 024 Other [facility] Medications Current Medications Medication Drug Class(es) Dates Sig (Normalized) Sig (Original) ADULT MUTIVITAMIN W/ EXTRA D GUMMY (14 sources) Start: 03-06-2018 ADULT MUTIVITAMIN W/ EXTRA D GUMMY Take by mouth. 03/06/2018 Active Start: 03-06-2018 ADULT MUTIVITA MIN W/ EXTRA D GUMMY Take by mouth. 0 03/06/2018 Active Comment on above: Take by mouth. amitriptyline hydrochloride 50 mg oral tablet (2 sources) Tricyclic Antidepressant Start: 04-12-20 24 End: 05-12-20 24 take 1 tablet by mouth once daily amitriptyline (Elavil) 50 MG tablet Take 1 tablet (50 mg) by mouth Nightly. 30 tablet 04/12/2024 05/12/2024 Active Start: 03-27-2024 End: 04-26-2024 take 1 tablet by mouth once daily amitriptyline (Elavil) 25 MG tablet Indications: Psychophysiological insomnia Take 1 tablet (25 mg) by mouth Nightly. 30 tablet 03/27/2024 04/26/2024 Active amoxicillin 875 mg / clavulanate 125 mg oral tablet (1 source) Penicillin-class Antibacterial Start: 08-25-2022 End: 09-01-2022 take 1 tablet by mouth twice daily amoxicillin-clavulanic acid (AUGMENTIN) 875-125 mg per tablet Take 1 tablet by mouth twice daily for 7 days. 14 tablet 0 08/25/2022 09/01/2022 Active Comment on above: Take 1 tablet by mouth twice daily for 7 days. ascorbic acid 60 mg / beta carotene 5000 unt / copper sulfate 40 mg / dl-alpha tocopheryl acetate 30 unt / sodium selenite 0.04 mg / zinc oxide 40 mg oral tablet (3 sources) Vitamin C take 1 tablet by mouth once daily Multiple Vitamins-Minerals (THERAPEUTIC MULTIVITAMIN-MINERALS) tablet Take 1 tablet by mouth daily 0 Active aspirin 81 mg chewable tablet (20 sources) Platelet Aggregation Inhibitor, Nonsteroidal Anti-inflammatory Drug Start: 11-26-2019 aspirin 81 MG chewable tablet Chew 1 tablet daily. 11/26/2019 Active Start: 11-26-2019 take 1 tablet by davie th once daily aspirin, enteric coated (ASPIRIN, ENTERIC COATED) 81 mg EC tablet Take 1 tablet by mouth once daily. 11/26/2019 Active Start: 11-26-2019 take 1 tablet by davie th once daily aspirin 81 MG tablet Indications: Type 1 diabetes mellitus with diabetic polyneuropathy (HCC) Take 1 tablet by mouth daily 90 tablet 3 11/26/2019 Active aspirin (ASPIR-8 1 ORAL) Take by mouth. Active aspirin (ASPIR-8 1 ORAL) Take by mouth. 0 Active take 1 tablet by davie th once daily aspirin 81 MG tablet Take 81 mg by mouth daily 0 Active Comment on above: Take by mouth. Take 1 tablet by davie th once daily. atorvastatin 40 mg oral tablet (20 sources) HMG-CoA Reductase Inhibitor Start: 2 End: 5 take 1 tablet by mouth once daily atorvastatin (Lipitor) 40 MG tablet Indications: Coronary artery disease involving [place] coronary artery of [place] heart without angina pectoris Take 1 tablet (40 mg) by mouth daily. 90 tablet 3 06/13/2024 06/08/2025 Active Comment on above: Take 40 mg by mouth once daily. 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 ICD-10: E10.65 ICD-10: E11.65 (insulin dependent) 1 Each 3 12/08/2023 Active Comment on above: Use as directed to m onitor blood glucose 4-6 times per day. 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 ICD-10: E10.65 ICD-10: E11.65 (insulin dependent) 1 Each 3 12/08/2023 Active Start: 08-14-2020 End: 05-14-2024 Blood-Glucose Meter,Continuo us (DEXCOM G7 TRAP SETTER) misc 1 Each. 08/14/2020 05/14/2024 Discontinued Start: 08-14-2020 Blood-Glucose Meter,Continuous (DEXCOM G7 TRAP SETTER) misc 1 Each. 08/14/2020 Active Start: 08-14-2020 Blood-Glucose Meter,Continuous (DEXCOM G7 TRAP SETTER) misc 1 Each. 0 08/14/2020 Active Comment on above: 1 Each. Use as directed to m onitor blood glucose 4-6 times per day. ICD-10: E10.65 ICD-10: E11.65 (insulin dependent) Blood-Glucose Sensor (DEXCOM G6 SENSOR) jeff (15 sources) Start: 05-21-2024 Blood-Glucose Sensor (DEXCOM G6 SENSOR) jeff Indications: Type 1 diabetes mellitus with diabetic polyneuropathy (HCC) Use as directed to monitor blood glucose 4-6 times per day. ICD-10: E10.65 ICD-10: E11.65 (insulin dependent) 4 Each 3 05/21/2024 Active Start: 12-08-2023 End: 05-20-2024 Blood-Glucose Sensor (DEXCOM G6 SENSOR) jeff Use as directed to monitor blood glucose 4-6 times per day. ICD-10: E10.65 ICD-10: E11.65 (insulin dependent) 4 Each 3 12/08/2023 05/20/2024 Discontinued Start: 12-08-2023 Blood-Glucose Sensor (DEXCOM G6 SENSOR) jeff Use as directed to monitor blood glucose 4-6 times per day. ICD-10: E10.65 ICD-10: E11.65 (insulin dependent) 4 Each 3 12/08/2023 Active Comment on above: Use as directed to m onitor blood glucose 4-6 times per day. 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 5 Each 2 11/19/2024 Active Blood-Glucose Transmitter (DEXCOM G6 TRANSMITTER) jeff (5 sources) Start: 05-21-20 End: 05-21-20 Blood-Glucose Transmitter (DEXCOM G6 TRANSMITTER) jeff Indications: Type 1 diabetes mellitus with diabetic polyneuropathy (HCC) 1 Device every 10 days. 3 Each 4 05/21/2024 05/21/2025 Active ciprofloxacin 500 mg oral tablet (20 sources) Quinolone Antimicrobial Start: 11-12-19 End: 11-19-19 take 1 tablet by mouth twice daily ciprofloxacin HCl (CIPRO) 500 mg tablet Take 1 tablet by mouth twice daily for 7 days. 14 tablet 0 11/11/2022 11/18/2022 Active Start: 03-18-2021 End: 03-25-2021 take 1 tablet by mouth twice daily ciprofloxacin (CIPRO) 500 MG tablet Indications: Acute pyelonephritis Take 1 tablet by mouth 2 times daily for 7 days 14 tablet 0 03/18/2021 03/25/2021 Active Ciprofloxacin 50 0 MG TABS Quantity: 0 Refills: 0 Ordered: 29-Mar-2023 DO Active End: 11-11-2022 ciprofloxacin HCl (CIPRO ORA L) Take by mouth. 0 11/11/2022 Discontinued ciprofloxacin HC l (CIPRO ORAL) Take by mouth. 0 Active Comment on above: Take by mouth. Take 1 tablet by twice daily for 7 days. Continuous Blood Gluc Sensor (DEXCOM G6 SENSOR) MISC (15 sources) Start: 08-14-2020 Continuous Blood Gluc Sensor (DEXCOM G6 SENSOR) MISC 1 each by Does not apply route daily 3 each 2 08/14/2020 Active Start: 05-21-2020 Continuous Blo od Gluc Sensor (DEXCOM G6 SENSOR) MISC Indications: Type 1 diabetes mellitus with diabetic polyneuropathy (HCC) Use as directed for BS monitoring 3 each 2 05/21/2020 Active Continuous Blood Gluc Transmit MISC (15 sources) Start: 06-11-2020 Continuous Blood Gluc Transmit MISC Indications: Chronic painful diabetic neuropathy (HCC) , Essential hypertension Use as directed 30 Units 5 06/11/2020 Active dexamethasone 1 mg/ml / neomycin 3.5 mg/ml / polymyxin b 27751 unt/ml ophthalmic suspension (3 sources) Aminoglycoside Antibacterial, Polymyxin-class Antibacterial, Corticosteroid Start: 08-26-2022 take 1 drop(s) into the eye(s) four times daily neomycin-polymyx in-dexAMETHasone (Maxitrol) 3.5mg/mL-10,000 unit/mL-0.1 % ophthalmic suspension Administer 1 drop into both eyes 4 times a day. 08/26/2022 Active docusate sodium 100 mg oral capsule (9 sources) Start: 11-26-2019 End: 02-24-2020 take 1 capsule by mouth twice daily as needed for constipation, then take 4-5 capsules by mouth once daily as needed for constipation docusate sodium (COLACE) 100 MG capsule Indications: 4-5 tabs/ day Take 1 capsule by mouth 2 times daily as needed for Constipation Indications: 4-5 tabs/ day 60 capsule 1 11/26/2019 02/24/2020 Active take 4-5 tablets by mouth once d aily docusate sodium (COLACE) 100 MG capsule Indications: 4-5 tabs/ day Take 100 mg by mouth 4 times daily Indications: 4-5 tabs/ day 0 Active estradiol 0.5 mg oral tablet (20 sources) Estrogen Start: 04-15-2019 End: 06-16-2024 take 1 tablet by mouth once daily estradiol (Estrace) 0.5 MG tablet Take 1 tablet (0.5 mg) by mouth daily. 90 tablet 3 06/13/2024 Active Comment on above: Take 0.5 mg by mouth once daily. 72 hr fentaNYL 0.0625 mg/hr transdermal system (20 sources) Opioid Agonist Start: 05-13-2025 End: 04-21-2025 fentaNYL (Duragesic) 62.5 MCG/HR Indications: Chronic painful diabetic neuropathy (CMS/HCC) (HCC) Place 1 patch on the skin Every 72 hours. Do not start before May 13, 2025. 10 patch 05/13/2025 04/21/2025 Discontinued (Other) Start: 04-20-2024 End: 06-12-2025 fentaNYL (Duragesic) 62.5 MC G/HR Indications: Chronic painful diabetic neuropathy (CMS/HCC) (HCC) Place 1 patch on the skin Every 72 hours. Do not start before April 13, 2025. 10 patch 04/13/2025 04/21/2025 Discontinued (Other) Start: 08-23-2023 End: 03-21-2024 fentaNYL (Duragesic) 62.5 MC G/HR Indications: Chronic painful diabetic neuropathy (CMS/HCC) (HCC) Place 1 patch on the skin Every 72 hours. Do not start before February 19, 2024. 10 patch 02/19/2024 03/21/2024 Discontinued (Reorder) Start: 07-24-2023 End: 07-13-2023 fentaNYL (Duragesic) 62.5 MC G/HR Indications: Chronic painful diabetic neuropathy (CMS/HCC) (HCC) Place 1 patch on the skin Every 72 hours. Do not start before July 24, 2023. 10 patch 0 07/24/2023 07/13/2023 Discontinued (Reorder) Start: 06-24-2023 End: 09-22-2023 fentaNYL (Duragesic) 62.5 MC G/HR Indications: Chronic painful diabetic neuropathy (CMS/HCC) (HCC) Place 1 patch on the skin Every 72 hours. 10 patch 0 07/13/2023 08/12/2023 Active Start: 09-22-2022 End: 06-22-2023 fentaNYL (Duragesic) 62.5 MC G/HR Indications: Chronic painful diabetic neuropathy (CMS/HCC) (HCC) Place 1 patch on the skin Every 72 hours. Do not start before November 21, 2022. 10 patch 0 11/21/2022 12/21/2022 Active Start: 09-01-2022 apply 1 dose transde rmal route every hour fentaNYL (Duragesic) 12 mcg/hr patch Place 1 patch on the skin every 3rd day. 09/01/2022 Active Start: 09-01-2022 End: 10-01-2022 fentaNYL (DURAGESIC) 12 MCG/ HR Indications: Chronic painful diabetic neuropathy (CMS/HCC) (HCC) Place 1 patch on the skin Every 72 hours. 10 patch 0 09/01/2022 10/01/2022 Start: 04-25-2022 End: 06-24-2022 fentaNYL (DURAGESIC) 50 MCG/ HR Indications: Chronic painful diabetic neuropathy (HCC) Place 1 patch onto the skin every 72 hours for 30 days. 10 patch 0 05/25/2022 06/24/2022 Active Start: 05-02-2021 End: 03-26-2022 fentaNYL (DURAGESIC) 50 MCG/ HR Indications: Chronic painful diabetic neuropathy (HCC) Place 1 patch onto the skin every 72 hours for 30 days. 10 patch 0 11/26/2021 Active Start: 09-08-2020 End: 04-28-2021 fentaNYL (DURAGESIC) 50 MCG/ HR Indications: Chronic painful diabetic neuropathy (HCC) Place 1 patch onto the skin every 72 hours for 30 days. 10 patch 0 03/29/2021 04/28/2021 Active Start: 07-08-2020 End: 09-04-2020 fentaNYL (DURAGESIC) 50 MCG/ HR Indications: Chronic painful diabetic neuropathy (HCC) Place 1 patch onto the skin every 72 hours for 30 days. 10 patch 0 08/05/2020 09/04/2020 Active Start: 03-16-2020 End: 05-15-2020 fentaNYL (DURAGESIC) 50 MCG/ HR Indications: Chronic painful diabetic neuropathy (HCC) , Encounter for monitoring opioid maintenance therapy , Type 1 diabetes mellitus with diabetic polyneuropathy (HCC) Place 1 patch onto the skin every 72 hours for 30 days. 10 patch 0 04/15/2020 05/15/2020 Active Start: 10-12-2019 End: 03-11-2020 fentaNYL (DURAGESIC) 50 MCG/ HR Indications: Chronic painful diabetic neuropathy (HCC) , Encounter for monitoring opioid maintenance therapy , Type 1 diabetes mellitus with diabetic polyneuropathy (HCC) Place 1 patch onto the skin every 72 hours for 30 days. 10 patch 0 02/10/2020 03/11/2020 Active Start: 05-13-2019 End: 08-12-2019 fentaNYL (DURAGESIC) 50 MCG/ HR Indications: Chronic painful diabetic neuropathy (HCC) , Encounter for monitoring opioid maintenance therapy Place 1 patch onto the skin every 72 hours for 30 days. 10 patch 0 07/13/2019 08/12/2019 Active Start: 04-19-2016 apply 50 ug transder mal route every hour fentaNYL (Duragesic) 50 mcg/hr patch 04/19/2016 Active apply 1 dose transde rmal route every hour fentaNYL (Duragesic) 62.5 mcg/hour Place 1 patch on the skin every 3rd day. Active Fezolinetant (Veozah) 45 MG tablet (19 sources) Start: 09-21-2023 End: 12-20-2023 take 1 tablet by mouth once daily Fezolinetant (Veozah) 45 MG tablet Indications: Menopausal syndrome on hormone replacement therapy Take 45 mg by mouth daily. 90 tablet 1 09/21/2023 12/20/2023 Active Start: 06-30-2023 End: 09-21-2023 take 1 tablet by mouth once daily Fezolinetant (Veozah) 45 MG tablet Indications: Menopausal syndrome on hormone replacement therapy Take 45 mg by mouth daily. 90 tablet 0 06/30/2023 09/21/2023 Discontinued (Reorder) Start: 06-30-2023 End: 09-28-2023 take 1 tablet by mouth once daily Fezolinetant (Veozah) 45 MG tablet Indications: Menopausal syndrome on hormone replacement therapy Take 45 mg by mouth daily. 90 tablet 0 06/30/2023 09/28/2023 Active fluticasone propionate 0.05 mg/actuat metered dose nasal spray (20 sources) Corticosteroid Start: 11-26-2019 take 1 spray(s) nasal route once daily fluticasone (Flonase) 50 mcg/actuation nasal spray Administer 1 spray into each nostril once daily. 11/26/2019 Active Start: 11-26-2019 take 1 spray(s) nasa l route once daily fluticasone (FLONASE) 50 MCG/ACT nasal spray Indications: Allergic rhinitis due to animal hair and dander 1 spray by Each Nostril route daily 2 Bottle 3 11/26/2019 Active Start: 10-24-2019 take 1 spray(s) nasa l route once daily fluticasone (FLONASE) 50 MCG/ACT nasal spray Indications: Allergic rhinitis due to animal hair and dander 1 spray by Each Nostril route daily 2 Bottle 1 10/24/2019 Active furosemide 40 mg oral tablet (9 sources) Loop Diuretic Start: 11-11-2013 take 1 tablet by mouth once daily furosemide (Lasix) 40 mg tablet Take 1 tablet (40 mg) by mouth once daily. 11/11/2013 Active gabapentin 400 mg oral capsule (20 sources) Anti-epileptic Agent Start: 11-23-2021 End: 03-13-2025 take 1 capsule by mouth twice daily gabapentin (Neurontin) 400 MG capsule Indications: Chronic painful diabetic neuropathy (CMS/HCC) (HCC) Take 1 capsule (400 mg) by mouth 2 times daily. 180 capsule 03/13/2025 Active Start: 08-19-2021 End: 11-17-2021 take 1 capsule by mouth twice daily gabapentin (NEURONTIN) 400 MG capsule Take 1 capsule by mouth 2 times daily for 90 days. 180 capsule 0 08/19/2021 11/17/2021 Active Start: 11-11-2013 End: 03-08-2021 gabapentin (NEURONTIN) 800 M G tablet Indications: Polyneuropathy in diabetes(357.2) , Carpal tunnel syndrome 1 in am and 2 in pm 270 Tab 3 11/11/2013 Active Start: 03-10-2013 take 1 tablet by davie th four times daily gabapentin (Neurontin) 800 mg tablet Take 1 tablet (800 mg) by mouth 4 times a day. 03/10/2013 Active Gabapentin 800 M G Oral Tablet Quantity: 0 Refills: 0 Ordered: 29-Mar-2023 DO Active Comment on above: Take 1 tablet by davie th four times daily. 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 May repeat after 15 minutes using a new device if there is no response. 1 Each 4 12/08/2023 Active Start: 03-02-2013 glucagon (Gluc agon Emergency Kit, human,) 1 mg injection 1 mg. GLUCAGON EMERGENCY 1 MG injection 09/12/2013 Active Comment on above: 1 mg as directed. IN JECT FOR INSULIN SHOCK Use 1 Chandler in the n ose as needed for low blood sugar. May repeat after 15 minutes using a new device if there is no response. glucose 4000 mg chewable tablet (20 sources) Start: 11-26-2019 glucose 4 gram chewable tablet Chew 4 tabs for blood sugar 11/26/2019 Active Start: 11-26-2019 glucose 4 g ch ewable tablet Indications: Type 1 diabetes mellitus with diabetic polyneuropathy (HCC) Chew 4 tabs for blood sugar 60 tablet 11 11/26/2019 Active Start: 10-02-2017 glucose 4 g ch ewable tablet Indications: Type 1 diabetes mellitus with diabetic polyneuropathy (HCC) Chew 4 tabs for blood sugar 60 tablet 0 10/02/2017 Active imipramine pamoate 100 mg oral capsule (20 sources) Tricyclic Antidepressant Start: 01-13-2025 End: 07-20-2025 take 1 capsule by mouth once daily imipramine (Tofranil-PM) 100 MG capsule Indications: Psychophysiological insomnia Take 1 capsule (100 mg) by mouth Nightly. 90 capsule 1 04/21/2025 07/20/2025 Active Start: 10-10-2024 End: 01-08-2025 take 2 tablets by mouth twice daily imipramine (Tofranil) 50 mg tablet Take 2 tablets (100 mg) by mouth 2 times a day. 10/10/2024 Active Start: 10-10-2024 End: 03-30-2025 take 2 tablets by mouth once daily imipramine (Tofranil) 50 MG tablet Indications: Psychophysiological insomnia Take 2 tablets (100 mg) by mouth Nightly. 180 tablet 10/10/2024 12/30/2024 Discontinued (Reorder) Start: 06-04-2024 End: 06-08-2025 take 1 tablet by mouth once daily imipramine (Tofranil) 50 MG tablet Indications: Psychophysiological insomnia Take 1 tablet (50 mg) by mouth Nightly. 90 tablet 01/13/2025 Active Start: 05-14-2024 End: 06-13-2024 take 1 tablet by mouth once daily imipramine (Tofranil) 25 MG tablet Indications: Psychophysiological insomnia Take 1 tablet (25 mg) by mouth Nightly. 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) Change it 3 days 30 Each 4 12/08/2023 Active Comment on above: Change it 3 days insulin lispro 100 unt/ml injectable solution (20 sources) Insulin Analog Start: 12-17-2024 insulin lispro (HUMALOG U-100 INSULIN) 100 unit/mL injection Indications: Type 1 diabetes mellitus with diabetic polyneuropathy (HCC) , 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) INJECT UNDER THE SKIN DIRECTED IN INSULIN PUMP UP TO 100 UNITS DAILY 90 mL 3 12/17/2024 Active Start: 06-05-2022 HumaLOG 100 UN IT/ML solution injection 100 UNIT VIA CONTINUOUS SUBCUTANEOUS INFUSION CONTINUOUS 06/05/2022 Active Start: 01-05-2018 inject 100 [IU] by s ubcutaneous injection once daily INSULIN LISPRO SUBQ To be used with insulin pump, estimate 100 units per day 01/05/2018 Active Start: 01-05-2018 INSULIN LISPRO SUBQ To be used with insulin pump, estimate 100 units per day 0 01/05/2018 Active Start: 01-05-2018 insulin lispro (HUMALOG) 100 UNIT/ML injection vial Indications: Type 1 diabetes mellitus with diabetic polyneuropathy (HCC) To be used with insulin pump, estimate 100 units per day 9 vial 5 01/05/2018 Active Start: 05-17-2016 End: 12-17-2024 inject 100 [IU] by subcutaneous injection once daily insulin lispro (HUMALOG U-100 INSULIN) 100 unit/mL injection Indications: Type 1 diabetes mellitus with diabetic polyneuropathy (HCC) , 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) Inject SQ as directed in insulin pump up to 100 units daily 100 mL 4 12/08/2023 12/17/2024 Discontinued Start: 01-13-2014 End: 12-08-2023 inject 9 doses by subcutaneous injection once daily insulin lispro (HUMALOG) 100 unit/mL injection Inject SQ as directed in insulin pump up to 100 units daily 9 Vial 3 01/13/2014 12/08/2023 Discontinued Comment on above: Inject SQ as directe d in insulin pump up to 100 units daily Insulin Pump Syringe (PARADIGM RESERVOIR) 1.8 mL misc (14 sources) Start: 12-08-2023 Insulin Pump Syringe (PARADIGM RESERVOIR) 1.8 mL misc Indications: Type 1 diabetes mellitus with diabetic polyneuropathy (HCC) , 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 ([facility]) Use as needed 30 Each 4 12/08/2023 Active Comment on above: Use as needed insulin aspart, human 100 unt/ml injectable solution (20 sources) Insulin Analog Start: 02-21-2022 NovoLOG 100 UNIT/ML solution INJECT 100 UNIT CONTINUOUS SUBCUTANEOUS INFUSION .CONTINUOUS 02/21/2022 Active Start: 02-21-2022 insulin aspart (NovoLOG U-100 Insulin aspart) 100 unit/mL injection as directed Injection 02/21/2022 Active Insulin Pump - i nsulin aspart (patient supplied) Inject into the skin continuous Oysmicv-bb-Wghg Ratio (ICR): Insulin Sensitivity Factor (ISF): mg/dL per unit of insulin Target Blood Glucose: mg/dL Bolus Frequency: 0 Active 24 hr loratadine 10 mg / pseudoephedrine sulfate 240 mg extended release oral tablet (20 sources) alpha-Adrenergic Agonist Start: 10-29-2020 take 10-240 mg by mouth every twenty-four hours loratadine-pseudoephedrine ER (Claritin-D 24 Hour) 10-240 MG 24 hr tablet Take 1 tablet by mouth daily. 10/29/2020 Active Start: 10-29-2020 take 1 tablet by davie th once daily loratadine-pseudoephedrine (Claritin-D 2 4 Hour) 10-240 mg 24 hr tablet Take 1 tablet by mouth once daily. 10/29/2020 Active Start: 10-29-2020 take 10-240 mg by mo uth once loratadine-pseudoephedrine (CLARITIN-D 2 4 HOUR) 10-240 MG per extended release tablet Take 1 tablet by mouth daily 30 tablet 5 10/29/2020 Active losartan potassium 50 mg oral tablet (20 sources) Angiotensin 2 Receptor Gabriel Start: 12-19-2011 End: 06-08-2025 take 1 tablet by mouth once daily losartan (Cozaar) 50 MG tablet Take 1 tablet (50 mg) by mouth daily. 90 tablet 3 06/13/2024 06/08/2025 Active Losartan Potassi um 50 MG Oral Tablet Quantity: 0 Refills: 0 Ordered: 29-Mar-2023 DO Active Comment on above: Take 1 tablet by davie th once daily. lovastatin 10 mg oral tablet (20 sources) HMG-CoA Reductase Inhibitor Start: 2 End: 3 take 1 tablet by mouth once daily at mealtime lovastatin (Mevacor) 10 mg tablet Take 1 tablet (10 mg) by mouth once daily in the evening. Take with meals. 11/11/2013 Active Comment on above: Take 1 tablet by davie th daily with dinner. meclizine hydrochloride 25 mg oral tablet (20 sources) Antiemetic Start: 0 End: 5 take 1 tablet by mouth three times daily as needed meclizine (Antivert) 25 mg tablet Take 1 tablet (25 mg) by mouth 3 times a day as needed. 11/26/2019 Active Start: 09-07-2018 take 1 tablet by davie th three times daily as needed for dizziness meclizine (ANTIVERT) 25 MG tablet Take 1 tablet by mouth 3 times daily as needed for Dizziness 30 tablet 3 09/07/2018 Active take 1 tablet by davie th every twelve hours meclizine (Antivert) 25 mg tablet,chewable Chew 1 tablet (25 mg) every 12 hours. Active take 1 tablet by davie th every twelve hours as needed meclizine (ANTIVERT) 25 mg tab Take 25 mg by mouth twice daily as needed. Active Comment on above: Take 25 mg by mouth twice daily as needed. medroxyPROGESTERone acetate 2.5 mg oral tablet (20 sources) Progestin Start: 2018 End: 2023 take 1 tablet by mouth once daily medroxyPROGESTERone (Provera) 2.5 MG tablet Take 1 tablet (2.5 mg) by mouth daily. 90 tablet 3 06/13/2024 Active medroxyPROGESTER one Acetate 2.5 MG Oral Tablet Quantity: 0 Refills: 0 Ordered: 29-Mar-2023 DO Active Comment on above: Take 2.5 mg by mouth once daily. Multiple Vitamins-Minerals (THERAPEUTIC MULTIVITAMIN-MINERALS) tablet (20 sources) take 1 tablet by mouth once daily Multiple Vitamins-Minerals (THERAPEUTIC MULTIVITAMIN-MINERALS) tablet Take 1 tablet by mouth daily 0 Active Multivitamin capsule (20 sources) take 1 capsule by mouth once daily Multivitamin capsule Take 1 capsule by mouth once daily. Active take 1 capsule by mouth once anny ly Multivitamin capsule Take 1 capsule by mouth once daily. 0 Active Comment on above: Take 1 capsule by mo [facility] once daily. Multivitamin preparation (3 sources) take 1 tablet by mouth once daily multivitamin (MULTIPLE VITAMINS ORAL) Take 1 tablet by mouth once daily. Active take 1 tablet by mouth once feli y multivitamin (MULTIPLE VITAMINS ORAL) Take 1 tablet by mouth once daily. 0 Active mupirocin 0.02 mg/mg topical ointment (3 sources) RNA Synthetase Inhibitor Antibacterial Start: 11-16-2022 End: 11-21-2022 mupirocin (BACTROBAN) 2 % ointment Apply a small amount in each nostril using a cotton swab twice the day before surgery and once the morning of surgery. 22 g 0 11/16/2022 11/21/2022 Active Comment on above: Apply a small amount in each nostril usi ng a cotton swab twice the day before surgery and once the morning of surgery. naloxegol 25 mg oral tablet (1 source) Opioid Antagonist Start: 10-30-2020 take 1 tablet by mouth once daily in the morning naloxegol (MOVANTIK) 25 MG TABS tablet Indications: Therapeutic opioid induced constipation Take 1 tablet by mouth every morning 30 tablet 0 10/30/2020 Active Naloxone (20 sources) Opioid Antagonist Start: 12-14-2022 naloxone (Na rcan) 4 mg/0.1 mL nasal spray ADMINISTER 1 SPRAY IN 1 NOSTRIL. MAY REPEAT EVERY 2-3 MINUTES IN... (REFER TO PRESCRIPTION NOTES). 12/14/2022 Active Start: 12-14-2022 naloxone (Narc an) 4 mg/0.1 mL nasal spray ADMINISTER 1 SPRAY IN 1 NOSTRIL. MAY REPEAT EVERY 2-3 MINUTES IN... (REFER TO PRESCRIPTION NOTES). 0 12/14/2022 Active Start: 12-14-2022 End: 12-14-2022 naloxone (Narcan) 4 mg/0.1 m L nasal spray Indications: Chronic painful diabetic neuropathy (CMS/HCC) (HCC) Administer 1 spray (4 mg) into affected nostril(s) Once for 1 dose. May repeat every 2-3 minutes if needed, alternating nostrils, until medical assistance becomes available. 2 each 0 12/14/2022 12/14/2022 Start: 06-14-2017 naloxone 4 MG/ 0.1ML LIQD nasal spray 1 spray by Nasal route as needed for Opioid Reversal 1 each 5 10/29/2020 Active nitrofurantoin, macrocrystals 50 mg oral capsule (6 sources) Nitrofuran Antibacterial Start: 11-27-2024 take 1 capsule by mouth once nitrofurantoin (Macrodantin) 50 mg capsule Indications: Frequent UTI Take 1 capsule (50 mg) by mouth once daily. EVERY Monday AND MONDAY. 30 capsule 3 11/27/2024 Active Start: 01-07-2025 take 1 capsule by mouth once n itrofurantoin (Macrodantin) 50 mg capsule Indications: Frequent UTI Take 1 capsule (50 mg) by mouth once daily. EVERY Monday AND MONDAY. 30 capsule 1 09/03/2024 Active Start: 03-29-2023 take 1 capsule by mouth once n itrofurantoin (Macrodantin) 50 mg capsule Take 1 capsule (50 mg) by mouth. EVERY Monday AND MONDAY. 0 03/29/2023 Active ondansetron 4 mg oral tablet (20 sources) Serotonin-3 Receptor Antagonist Start: 09-01-2022 End: 09-30-2024 take 1 tablet by mouth every eight hours as needed for nausea and vomiting ondansetron (Zofran) 4 MG tablet Take 1 tablet (4 mg) by mouth every 8 hours as needed for nausea or vomiting. 30 tablet 09/30/2024 Active Start: 11-11-2013 take 1 tablet by davie th every twelve hours for nausea ondansetron ODT (Zofran-ODT) 8 mg disintegrating tablet Take 1 tablet (8 mg) by mouth every 12 hours if needed for nausea. 11/11/2013 Active take 1 tablet by davie th once daily ondansetron ODT (Zofran-ODT) 4 mg disintegrating tablet Take 1 tablet (4 mg) by mouth once daily. Active ondansetron HCl (ZOFRAN ORAL) Take by mouth. Active Zofran 4 MG TABS Quantity: 0 Refills: 0 Ordered: 29-Mar-2023 DO Active ondansetron HCl (ZOFRAN ORAL) Take by mouth. 0 Active Comment on above: Take by mouth. pantoprazole 40 mg delayed release oral tablet (9 sources) Proton Pump Inhibitor Start: 4 take 1 tablet by mouth once daily pantoprazole (ProtoNix) 40 mg EC tablet Take 1 tablet (40 mg) by mouth once daily. 11/11/2013 Active pregabalin 50 mg oral capsule (6 sources) Start: 0 End: 0 take 1 capsule by mouth three times daily pregabalin (LYRICA) 50 MG capsule Indications: Diabetic polyneuropathy associated with type 1 diabetes mellitus (HCC) Take 1 capsule by mouth 3 times daily for 30 days. 60 capsule 2 02/04/2020 03/05/2020 Active Start: 11-26-2019 End: 12-26-2019 take 1 capsule by mouth twice daily pregabalin (LYRICA) 25 MG capsule Indications: Type 1 diabetes mellitus with diabetic polyneuropathy (HCC) Take 1 capsule by mouth 2 times daily for 30 days. 60 capsule 0 11/26/2019 12/26/2019 Active promethazine hydrochloride 25 mg oral tablet (9 sources) Phenothiazine Start: 11-11-2013 take 1 tablet by mouth every four to six hours as needed for nausea promethazine (Phenergan) 25 mg tablet Take 1 tablet (25 mg) by mouth. EVERY 4 TO 6 HOURS NEEDED FOR NAUSEA/VOMITING 11/11/2013 Active 72 hr scopolamine 0.0139 mg/hr transdermal system (20 sources) Anticholinergic Start: 11-10-2022 scopolamine (TRANSDERM-SCOP) patch 1.5 mg/72 hr (delivers 1 mg over 3 days) Indications: Radiculopathy of lumbar region Apply 1 disc behind the ear at least 4 hours prior to exposure and every 3 days as needed. 1 Patch 11/10/2022 Active Start: 06-12-2013 End: 11-10-2022 scopolamine 1.5 mg Apply as directed. use every 72 hours as directed 3 Patch 0 06/12/2013 11/10/2022 Discontinued Comment on above: Apply as directed. u se every 72 hours as directed Apply 1 disc behind the ear at least 4 hours prior to exposure and every 3 days as needed. temazepam 15 mg oral capsule (11 sources) Benzodiazepine End: 11-11-19 23 take 1-2 tablets by mouth at bedtime as needed temazepam (RESTORIL) 15 mg cap Take by mouth at bedtime as needed. 1-2 tablets in the pm 0 11/10/2022 Discontinued Comment on above: Take by mouth at bed time as needed. 1-2 tablets in the pm trimethoprim 100 mg oral tablet (1 source) Dihydrofolate Reductase Inhibitor Antibacterial Start: 04-07-20 trimethoprim (Trimpex) 100 mg tablet Indications: Frequent UTI Take 1 every Mon, Wed, Fri 30 tablet 5 04/07/2025 Active Start: 04-07-2025 trimethoprim ( Trimpex) 100 mg tablet Indications: Frequent UTI Take 1 every Mon, Wed, Fri 30 tablet 5 04/07/2025 Active 24 hr venlafaxine 150 mg extended release oral capsule (20 sources) Serotonin and Norepinephrine Reuptake Inhibitor Start: 06-02-2018 End: 06-08-2025 take 1 capsule by mouth once daily venlafaxine XR (Effexor XR) 150 MG 24 hr capsule Indications: Recurrent major depressive disorder, in remission (HCC) Take 1 capsule (150 mg) by mouth daily. 90 capsule 3 06/13/2024 06/08/2025 Active Start: 06-02-2018 End: 06-08-2025 take 1 tablet by mouth once daily venlafaxine (Effexor) 75 MG tablet Indications: Recurrent major depressive disorder, in remission (HCC) Take 1 tablet (75 mg) by mouth Nightly. 90 tablet 3 06/13/2024 06/08/2025 Active Start: 11-11-2013 take 1 tablet by davie th twice daily venlafaxine (Effexor) 50 mg tablet Take 1 tablet (50 mg) by mouth twice a day. 11/11/2013 Active venlafaxine (Eff exor) 100 mg tablet Take by mouth. Active Venlafaxine HCl - 100 MG Oral Tablet Quantity: 0 Refills: 0 Ordered: 29-Mar-2023 DO Active Venlafaxine HCl - 75 MG Oral Tablet Quantity: 0 Refills: 0 Ordered: 29-Mar-2023 DO Active Comment on above: TAKE 1 CAPSULE DAILY IN THE MORNING TAKE 1 TABLET DAILY AT BEDTIME Completed/Discontinued Medications Medication Drug Class(es) Dates Sig (Normalized) Sig (Original) aspirin 81 mg / calcium carbonate 777 mg oral tablet (14 sources) Platelet Aggregation Inhibitor, Nonsteroidal Anti-inflammatory Drug End: 11-11-2022 aspirin-calcium carbonate 81 mg-300 mg calcium(777 mg) tab Take 81 mg by mouth. 0 11/11/2022 Discontinued Comment on above: Take 81 mg by mouth. Catheter 14-16 Fr- Misc Misc (20 sources) Start: 10-07-2010 End: 07-22-2024 Catheter 14-16 Fr- Misc Misc Indications: Hydronephrosis, left , Neurogenic bladder use as directed four times a day 120 Each 11 10/07/2010 07/22/2024 Discontinued Start: 10-07-2010 Catheter 14-16 Fr- Misc Misc Indications: Hydronephrosis, left , Neurogenic bladder use as directed four times a day 120 Each 11 10/07/2010 Active Comment on above: use as directed four times a day Infusion Set for Insulin Pump (JUSTUS INFUSION SET) Misc ISet (19 sources) Start: 11-04-2010 End: 12-08-2023 Infusion Set for Insulin Pump (JUSTUS INFUSION SET) Misc ISet MMT 923 changes site every 3 days 30 Each 4 11/04/2010 12/08/2023 Discontinued Start: 11-04-2010 Infusion Set f or Insulin Pump (JUSTUS INFUSION SET) Misc ISet MMT 923 changes site every 3 days 30 Each 4 11/04/2010 Active Comment on above: MMT 923 changes site every 3 days Insulin Pump Syringe (PARADIGM RESERVOIR) 1.8 mL Misc Misc (19 sources) Start: 11-04-2010 End: 12-08-2023 Insulin Pump Syringe (PARADIGM RESERVOIR) 1.8 mL Misc Misc MMT 326A changes site every 3 days 30 Each 4 11/04/2010 12/08/2023 Discontinued Start: 11-04-2010 Insulin Pump S yringe (PARADIGM RESERVOIR) 1.8 mL Misc Misc MMT 326A changes site every 3 days 30 Each 4 11/04/2010 Active Comment on above: MMT 326A changes sit e every 3 days Problems Active Problems Problem Classification Problem Date Documented Date Episodic/Chronic Anxiety disorders (20 sources) Anxiety; Translations: [Anxiety disorder, unspecified] Onset: 05-11-2017 05-11-2017 Chronic Chronic kidney disease (20 sources) Chronic kidney disease; Translations: [Chronic kidney disease, unspecified] Onset: 01-30-2014 01-30-2014 Chronic Conditions associated with dizziness or vertigo (20 sources) Meniere's disease, bilateral; Translations: [Bilateral Meniere's disease of inner ears] Onset: 02-04-2020 02-04-2020 Chronic Coronary atherosclerosis and other heart disease (20 sources) Coronary atherosclerosis; Translations: [Atherosclerotic heart disease of [place] coronary artery without angina pectoris] Onset: 12-23-2021 12-23-2021 Chronic Diabetes mellitus with complications (20 sources) Chronic painful diabetic neuropathy; Translations: [Diabetic polyneuropathy] Onset: 11-09-2001 Resolved: 06-13-2024 05-11-2017 Chronic Diabetes mellitus with complications (11 sources) Retinopathy due to secondary diabetes mellitus; Translations: [Retinopathy due to secondary DM] Onset: 05-11-2017 05-12-2017 Diabetes mellitus without complication (20 sources) Type 1 diabetes mellitus; Translations: [Type 1 diabetes mellitus with diabetic chronic kidney disease] Onset: 11-09-2001 Resolved: 06-13-2024 04-09-2018 Chronic Disorders of lipid metabolism (20 sources) Hyperlipidemia; Translations: [Hyperlipidemia, unspecified] Onset: 06-27-2023 10-14-2013 Chronic Esophageal disorders (20 sources) Gastroesophageal reflux disease; Translations: [Gastro-esophageal reflux disease without esophagitis] Onset: 11-10-2008 11-10-2008 Chronic Essential hypertension (20 sources) Essential hypertension; Translations: [Essential (primary) hypertension] Onset: 05-24-2017 05-24-2017 Chronic Inflammation; infection of eye (except that caused by tuberculosis or sexually transmitteddisease) (1 source) Viral conjunctivitis; Translations: [Viral conjunctivitis, unspecified] Episodic Malaise and fatigue (2 sources) Asthenia; Translations: [Weakness] Episodic Menopausal disorders (20 sources) Menopausal flushing; Translations: [Menopausal syndrome] Onset: 05-24-2017 Resolved: 10-29-2020 05-24-2017 Chronic Miscellaneous mental health disorders (16 sources) Pain disorder with psychological factor; Translations: [Pain disorder with related psychological factors] Onset: 06-11-2022 Chronic Mood disorders (20 sources) Recurrent major depression in remission; Translations: [Major depressive disorder, recurrent, in remission, unspecified] Onset: 01-01-2009 12-24-2019 Chronic Other aftercare (20 sources) Patient encounter status; Translations: [Encounter for therapeutic drug level monitoring] Onset: 06-09-2017 06-12-2020 Episodic Other aftercare (7 sources) Long-term current use 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 drug; 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] 09-19-2024 Episodic Other congenital anomalies (20 sources) Anophthalmos; Translations: [Other anophthalmos] Onset: 05-12-2017 05-12-2017 Chronic Other diseases of bladder and urethra (20 sources) Neurogenic bladder; Translations: [Neuromuscular dysfunction of bladder, unspecified] Onset: 03-18-2021 03-18-2021 Chronic Other diseases of bladder and urethra (2 sources) Neuromuscular dysfunction of bladder, unspecified; Translations: [Neuromuscular dysfunction of bladder, unspecified] Onset: 06-27-2023 Chronic Other diseases of kidney and ureters (1 source) Unspecified hydronephrosis; Translations: [Unspecified hydronephrosis] Onset: 04-11-2023 Episodic Other diseases of kidney and ureters (5 sources) Chronic renal insufficiency; Translations: [Disorder of kidney and ureter, unspecified] Onset: 03-13-2025 03-13-2025 Episodic Other diseases of kidney and ureters (2 sources) Disorder of kidney and ureter, unspecified; Translations: [Disorder of kidney and ureter, unspecified] Onset: 03-13-2025 Episodic Other ear and sense organ disorders (20 sources) Hearing loss; Translations: [Unspecified hearing loss, unspecified ear] Onset: 07-07-2008 07-07-2008 Chronic Other hereditary and degenerative nervous system conditions (1 source) Restless legs; Translations: [Restless legs syndrome] 07-22-2024 Chronic Other hereditary and degenerative nervous system conditions (1 source) Restless legs syndrome; Translations: [RLS (restless legs syndrome)] Onset: 07-22-2024 Chronic Other injuries and conditions due to external causes (1 source) Other injury of unspecified body region, initial encounter; Translations: [Wound infection] Onset: 04-06-2023 Episodic Other lower respiratory disease (1 source) Snoring; Translations: [Snoring] 07-22-2024 Episodic Other lower respiratory disease (1 source) Snoring; Translations: [Snoring] Onset: 07-22-2024 Episodic Other nervous system disorders (20 sources) Bilateral carpal tunnel syndrome; Translations: [Carpal tunnel syndrome, bilateral upper limbs] Onset: 10-30-2012 05-11-2017 Chronic Other nervous system disorders (20 sources) Carpal tunnel syndrome of left wrist; Translations: [Carpal tunnel syndrome, left upper limb] Onset: 04-04-2013 04-04-2013 Chronic Other nervous system disorders (20 sources) Carpal tunnel syndrome of right wrist; Translations: [Carpal tunnel syndrome, right upper limb] Onset: 04-04-2013 04-04-2013 Chronic Other nervous system disorders (1 source) Disorder of the peripheral nervous system; Translations: [Hereditary and idiopathic neuropathy, unspecified] Chronic Other nervous system disorders (2 sources) Other chronic pain; Translations: [Other chronic pain] Onset: 12-23-2021 Chronic Other nervous system disorders (1 source) Lesion of right median nerve; Translations: [Other lesions of median nerve, right upper limb] Chronic Other nervous system disorders (5 sources) Neuropathy; Translations: [Mononeuritis of unspecified site] Onset: 06-27-2023 06-27-2023 Chronic Other nervous system disorders (2 sources) Paresthesia; Translations: [Paresthesia of skin] Episodic Other nervous system disorders (1 source) Paresthesia of hand ; Translations: [Anesthesia of skin] Episodic Other nervous system disorders (11 sources) Bilateral carpal tunnel syndrome; Translations: [Bilateral carpal tunnel syndrome] Onset: 05-11-2017 05-11-2017 Other upper respiratory disease (20 sources) Allergic rhinitis due to pollen; Translations: [Allergic rhinitis due to pollen] Onset: 05-24-2017 05-24-2017 Chronic Other upper respiratory disease (20 sources) Allergic rhinitis; Translations: [Allergic rhinitis, unspecified] Onset: 11-09-2001 12-22-2003 Chronic Other upper respiratory infections (1 source) Acute maxillary sinusitis; Translations: [Acute maxillary sinusitis, unspecified] Episodic Residual codes; unclassified (1 source) Unrefreshed by sleep; Translations: [Other sleep disorders] 07-22-2024 Chronic Residual codes; unclassified (1 source) Daytime somnolence; Translations: [Other hypersomnia] 07-22-2024 Chronic Residual codes; unclassified (1 source) Other sleep disorders; Translations: [Non-restorative sleep] Onset: 07-22-2024 Chronic Residual codes; unclassified (1 source) Other hypersomnia; Translations: [Excessive daytime sleepiness] Onset: 07-22-2024 Chronic Skin and subcutaneous tissue infections (1 source) Local infection of the skin and subcutaneous tissue, unspecified; Translations: [Wound infection] Onset: 04-06-2023 Episodic Substance-related disorders (4 sources) Opioid use, unspecified, uncomplicated; Translations: [Continuous opioid dependence] Onset: 09-24-2021 Episodic Unclassified (14 sources) Patient encounter status; Translations: [Encounter for monitoring opioid maintenance therapy] Onset: 06-09-2017 06-09-2017 Unclassified (20 sources) ASA CLASS II Onset: 06-20-2003 12-22-2003 Urinary tract infections (20 sources) Acute pyelonephritis; Translations: [Acute pyelonephritis] Onset: 03-18-2021 Resolved: 07-29-2021 03-18-2021 Episodic Past or Other Problems Problem Classification Problem Date Documented Da te Episodic/Chronic Abdominal pain (20 sources) Abdominal pain; Translations: [Unspecified abdominal pain] Onset: 04-03-2007 04-03-2007 Episodic Asthma (20 sources) Mild intermittent asthma; Translations: [Mild intermittent asthma, uncomplicated] Onset: 05-24-2017 Resolved: 06-22-2023 05-24-2017 Chronic Genitourinary symptoms and ill-defined conditions (20 sources) Retention of urine; Translations: [Retention of urine, unspecified] Onset: 06-20-2003 05-11-2017 Episodic Immunizations and screening for infectious disease (18 sources) Encounter for immunization; Translations: [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 staphylococcus aureus] Onset: 08-02-2021 Episodic Mood disorders (20 sources) Mood disorders Onset: 09-02-2022 Resolved: 03-26-2024 09-02-2022 Other aftercare (4 sources) Encounter for therapeutic drug level monitoring; Translations: [Encounter for therapeutic drug level monitoring] Onset: 07-29-2021 Episodic Other aftercare (4 sources) 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; 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] Onset: 07-29-2021 Episodic Other aftercare (20 sources) Long-term current use of drug therapy; Translations: [Encounter for therapeutic drug level monitoring] Onset: 06-12-2020 06-11-2022 Episodic Other connective tissue disease (6 sources) Pain in limb; Translations: [Pain in unspecified limb] Onset: 05-23-2003 05-23-2003 Episodic Other connective tissue disease (20 sources) Adhesive capsulitis of left shoulder; Translations: [Adhesive capsulitis of left shoulder] Onset: 07-29-2021 07-29-2021 Episodic Other connective tissue disease (20 sources) Acquired trigger finger; Translations: [Trigger finger, unspecified finger] Onset: 11-25-2008 11-25-2008 Episodic Other connective tissue disease (1 source) Adhesive capsulitis of left shoulder; Translations: [Adhesive capsulitis of left shoulder] Onset: 09-24-2021 Episodic Other connective tissue disease (20 sources) Pain of bilateral hands; Translations: [Pain in right hand] Onset: 09-21-2023 09-21-2023 Episodic Other diseases of kidney and ureters (20 sources) Obstruction of ureter; Translations: [Crossing vessel and stricture of ureter without hydronephrosis] Onset: 04-09-2007 04-09-2007 Episodic Other diseases of kidney and ureters (20 sources) Kidney disease; Translations: [Disorder of kidney and ureter, unspecified] Onset: 04-09-2010 04-09-2010 Episodic Other gastrointestinal disorders (11 sources) Drug-induced constipation; Translations: [Drug-induced constipation] Onset: 05-11-2017 04-09-2018 Episodic Other gastrointestinal disorders (20 sources) Therapeutic opioid induced constipation; Translations: [Drug induced constipation] Onset: 05-11-2017 10-29-2020 Episodic Other nervous system disorders (1 source) Anesthesia of skin; Translations: [Numbness and tingling in both hands] Onset: 05-25-2022 Episodic Other nervous system disorders (1 source) Paresthesia of skin; Translations: [Numbness and tingling in both hands] Onset: 05-25-2022 Episodic Other non-traumatic joint disorders (20 sources) Shoulder joint pain; Translations: [Pain in unspecified shoulder] Onset: 11-09-2001 12-22-2003 Episodic Other screening for suspected conditions (not mental disorders or infectious disease) (4 sources) Encounter for screening for lipoid disorders; Translations: [Encounter for screening for malignant neoplasm of colon] Onset: 09-19-2024 Episodic Other skin disorders (20 sources) Lesion of skin of foot; Translations: [Changes in skin texture] Onset: 10-18-2011 10-18-2011 Episodic Poisoning by other medications and drugs (20 sources) Adverse reaction to substance; Translations: [Other and unspecified adverse effect of drug, medicinal and biological substance] Onset: 03-04-2002 12-22-2003 Episodic Residual codes; unclassified (20 sources) Insomnia; Translations: [Insomnia, unspecified] Onset: 05-11-2017 05-11-2017 Episodic Retinal detachments; defects; vascular occlusion; and retinopathy (20 sources) Retinal detachment; Translations: [Serous retinal detachment, unspecified eye] Onset: 05-11-2017 05-11-2017 Episodic Screening and history of mental health and substance abuse codes (20 sources) H/O: depression; Translations: [Personal history of other mental and behavioral disorders] Onset: 05-11-2017 Resolved: 12-24-2019 05-11-2017 Episodic Spondylosis; intervertebral disc disorders; other back problems (5 sources) Lumbar radiculopathy; Translations: [Radiculopathy, lumbar region] Onset: 05-25-2022 Episodic Suicide and intentional self-inflicted injury (20 sources) H/O: attempted suicide; Translations: [Personal history of self-harm] Onset: 05-11-2017 05-11-2017 Episodic Unclassified (2 sources) Onset: 10-30-2024 10-30-2024 Results Test Name Value Interpretation Reference Range Facility 36 04-22-2025 36 Call placed to pharm [facility] and spoke with pharmacy grad intern. They are unable to submit the refill to insurasnce as it is too soon. They are unable to see if there was a PA approval until pt is due for next refill. cd technician stated they would call office if there is an issue when pharmacy is filling the next script. [facility] 36 Spoke with Adelso Please have the pharmacist re-run the medication as there is electronic documentation of approval of PA completed 04/18/25 that runs through 03/18/25 to 04/18/2026 Approved 04/18/2025 11:53 AM Appeal supported: No Note from payer: CaseId:[id number];Status:A pproved;Review Type:Prior Auth;Coverage Start Date:03/18/2025;Coverage End Date:04/18/2026; Payer: [facility] Case ID: [id number] [facility] 36 Spoke with [facility]. Patient paid out of pocket for a 15 day supply on 04/17/25. This was $360 out of pocket. Patient will need a new script to cover the last 15 days as they had to waste it to fill those 15 days. They do need a prior auth. Pharmacy states that it needs to be a fci prior auth to cover the full year of prescriptions. Please advise. [facility] 36 Please call pharmacy to confirm PA that was approved and patient is able to get medications when due as our office keeps getting paperwork from CoverMyMeds to complete PA [facility] 36on 04-21-2025 36 Medication(s) refill ed: Requested Prescriptions Signed Prescriptions Disp Refills fentaNYL (Duragesic) 62.5 MCG/HR 10 patch 0 Sig: Place 1 patch on the skin Every 72 hours. Do not start before April 30, 2025. Authorizing Provider: NIECY ADDISON imipramine (Tofranil-PM) 100 MG capsule 90 capsule 1 Sig: Take 1 capsule (100 mg) by mouth Nightly. Authorizing Provider: NIECY ADDISON DO 04/21/2025 4:[address] [facility] 36 Ordering provider: Niecy Addison DO Date of last office visit: 03/13/25 Date of next office visit: 06/04/2025 [facility] Updated/Validated preferred pharmacy: Yes [id number] - [place], [place] - [address] Patient instructed to contact the pharmacy prior to picking up the medication: Yes Spouse states that due to the Prior Authorization and partial/temporary refill; the full 30-day was voided at the pharmacy (1) Medication name: fentaNYL (Duragesic) 62.5 MCG/HR Medication dosage: fentaNYL (Duragesic) 62.5 MCG/HR Monthly quantity needed: 10 patch (30 day supply) How many day supply requestin days Medication route: Transdermal Medication administration time(s): Sig: Place 1 patch on the skin Every 72 hours. If taking medication PRN, reason for taking medication: N/A If this is a controlled substance do you receive this or any other controlled medication from any other doctor or facility: No Date of last refill (see medication tab): 04/13/25 (2) Medication name: imipramine (Tofranil-PM) 100 MG capsule Medication dosage: imipramine (Tofranil-PM) 100 MG capsule Monthly quantity needed: 30 How many day supply requestin days Medication route: oral (PO) Medication administration time(s): bedtime (HS) If taking medication PRN, reason for taking medication: N/A If this is a controlled substance do you receive this or any other controlled medication from any other doctor or facility: no Date of last refill (see medication tab): 01/13/[address] 04-17-2025 36 Initiated PA via Epic [facility] 36on 04-16-2025 36 Name of caller: Shravan vilchis Contact phone number: [phone] Relationship to Patient: [facility] Provider: Azael Gregg Practice: [facility] Chief Complaint/Reason for Call: Caller stated they were advised By Pt's Insurance that a long-term PA is needed in order to have Pt's Rx fentaNYL (Duragesic) 62.5 MCG/HR covered. Quickest way to have done is that Provider's office need to call [phone]. Please advise. Best time of day caller can be reached: Any Patient advised that office/PCP has 24-48 business hours to return their call: No [facility] 36 Appointment reschedu led to 06/04/2025. [address] 04-08-2025 36 LVM to r/s [facility] 36 Provider will be out of the office on 06/05. Please call to r/s appt. Okay to schedule on 06/04 in the AM if pt agreeable [facility] BASIC METABOLIC PANEL WITH A NION GAPon 04-06-2025 Calcium [Mass/Vol] 9.6 mg/dL Normal 8.6-10.4 [facility] Comment on above: Order Comment: FASTI NG:YES FASTING: YES Performed By: #### [id number] #### [facility] [address], [address] [place], [place] [id number] Chief Deputy: Raffy King MD Chloride [Moles/Vol] 99 mmol/L Normal 98-110 [facility] Comment on above: Order Comment: FASTI NG:YES FASTING: YES Performed By: #### 9 [id number] #### [facility] [address], [address] [place], [place] [id number] Chief Deputy: Raffy King MD CO2 [Moles/Vol] 28 mmol/L Normal 20-32 [facility] Comment on above: Order Comment: FASTI NG:YES FASTING: YES Performed By: #### [id number] #### [facility] [address], [address] [place] [address] Chief Deputy: Raffy King MD Creatinine [Mass/Vol] 1.57 mg/dL High 0.50-1.03 [facility] Comment on above: Order Comment: FASTI NG:YES FASTING: YES Performed By: #### 9 [id number] #### [facility] [address], [address] [place] [address] Chief Deputy: Raffy King MD ELECTROLYTE BALANCE 10 mmol/L (calc) Normal 7-17 [facility] Comment on above: Order Comment: FASTI NG:YES FASTING: YES Performed By: #### 9 [id number] #### [facility] [address], [address] [place] [address] Chief Deputy: Raffy King MD GFR/1.73 sq M.predicted among non-blacks MDRD (S/P/Bld) [Vol rate/Area] 38 mL/min/{1.73_m2} Low > OR = 60 [facility] Comment on above: Order Comment: FASTI NG:YES FASTING: YES Performed By: #### 9 [id number] #### [facility] [address], [address] [place] [address] Chief Deputy: Raffy King MD Glucose [Mass/Vol] 167 mg/dL High 65-99 [facility] Comment on above: Order Comment: FASTI NG:YES FASTING: YES Result Comment: Fasting reference interval For someone without known diabetes, a glucose value >125 mg/dL indicates that they may have diabetes and this should be confirmed with a follow-up test. Performed By: #### 9 [id number] #### [facility] [address], [address] [place] [address] Chief Deputy: Raffy King MD Potassium [Moles/Vol] 4.8 mmol/L Normal 3.5-5.3 [facility] Comment on above: Order Comment: FASTI NG:YES FASTING: YES Performed By: #### 9 [id number] #### [facility] of [address], [address] [place] [address] Chief Deputy: Raffy King MD Sodium [Moles/Vol] 137 mmol/L Normal 135-146 [facility] Comment on above: Order Comment: FASTI NG:YES FASTING: YES Performed By: #### 9 [id number] #### [facility] [address], [address] [place] [address] Chief Deputy: Raffy King MD Urea nitrogen [Mass/Vol] 32 mg/dL High 7-25 [facility] Comment on above: Order Comment: FASTI NG:YES FASTING: YES Performed By: #### 9 [id number] #### [facility] of [address], [address] [place] [address] Chief Deputy: Raffy King MD Urea nitrogen/Creatinine [Mass ratio] 20 mg/mg Normal 6-22 [facility] Comment on above: Order Comment: FASTI NG:YES FASTING: YES Performed By: #### 9 [id number] #### [facility] of [address], [address] [place] [address] Chief Deputy: Raffy King MD on 03-13-2025 29 Addended by: NIECY ADDISON on: 03/13/2025 10:01 AM Modules accepted: Orders [facility] Progress Noteon 03-13-2025 Progress Note Chronic, uncontrolle d Discussed to decrease Gabapentin to 400 mg every day (instead of BID) given recent KATE - may do ok on lower dose TBD Increase fluid intake Will need repeat BMP in the next few days to reassess - if she has a nephrology appointment next week then will let specialist order blood work - she will let me know via MyChart [facility] Progress Note Controlled After addressing medication(s) compliance, adverse effects, and efficacy of treatment(s), medications for this controlled chronic condition will be continued. Ok to order repeat UDS next visit or defer - has been concordant in past without issues Orders: fentaNYL (Duragesic) 62.5 MCG/HR; Place 1 patch on the skin Every 72 hours. Do not start before March 14, 2025. fentaNYL (Duragesic) 62.5 MCG/HR; Place 1 patch on the skin Every 72 hours. Do not start before April 13, 2025. fentaNYL (Duragesic) 62.5 MCG/HR; Place 1 patch on the skin Every 72 hours. Do not start before May 13, 2025. gabapentin (Neurontin) 400 MG capsule; Take 1 capsule (400 mg) by mouth 2 times daily. Normal [facility] Progress Note Prechart note: (the following data was documented before the visit began) Rooming: vv Possible agenda: LTOT Provider notes: go over labs - KATE? No microalbuminuria Next appt 06/12/25 Multidisciplinary team needs: Health Maintenance to be addressed today: CRC - cologuard ? 04/21 [place] Search by Drug Name [place] Drug List Health Maintenance Due Topic Date Due Diabetes: Celiac Disease Screening Never done Colorectal Cancer Screening Never done MMR Vaccines (1 of 1 - Standard series) Never done Diabetes: Foot Exam Never done Diabetes: Dental Exam Never done Mammogram Never done COVID-19 Vaccine () 04/28/2024 Depression Monitoring 03/18/2025 (end precharting)- [facility] [place] - [address] [facility] [address] Dept: [phone] Dept Loc: [phone] Patient was seen today via Telehealth by agreement and consent. I used the following Telehealth technology: Audio and video capabilities. Patient location: VV Patient Location: Home. This patient encounter is appropriate and reasonable under the circumstances: transportation issues . The patient has been advised of the potential risks and limitations of this mode of treatment (including but not limited to the absence of in-person examination) and has agreed to be treated in a remote fashion in spite of them. Any and all of the patient's/patient's family's questions on this issue have been answered and I have made no promises or guarantees to the patient. The patient has also been advised to contact this office for worsening conditions or problems, and seek emergency medical treatment and/or call 911 if the patient deems either necessary. The patient stated that they are currently in the [facility]. If the patient is a minor, permission has been obtained by the parent or guardian for the patient to receive medical care at this visit. Assessment/Plan Assessment & Plan Chronic painful diabetic neuropathy (CMS/HCC) (HCC) Controlled After addressing medication(s) compliance, adverse effects, and efficacy of treatment(s), medications for this controlled chronic condition will be continued. Ok to order repeat UDS next visit or defer - has been concordant in past without issues Orders: fentaNYL (Duragesic) 62.5 MCG/HR; Place 1 patch on the skin Every 72 hours. Do not start before March 14, 2025. fentaNYL (Duragesic) 62.5 MCG/HR; Place 1 patch on the skin Every 72 hours. Do not start before April 13, 2025. fentaNYL (Duragesic) 62.5 MCG/HR; Place 1 patch on the skin Every 72 hours. Do not start before May 13, 2025. gabapentin (Neurontin) 400 MG capsule; Take 1 capsule (400 mg) by mouth 2 times daily. Acute on chronic renal insufficiency Chronic, uncontrolled Discussed to decrease Gabapentin to 400 mg every day (instead of BID) given recent KATE - may do ok on lower dose TBD Increase fluid intake Will need repeat BMP in the next few days to reassess - if she has a nephrology appointment next week then will let specialist order blood work - she will let me know via [employer] Screen for colon cancer 2023 order will - reminded patient to do this BIMAL Orders: Cologuard? colon cancer screening Health Maintenance Due Topic Diabetes: Celiac Disease Screening Colorectal Cancer Screening MMR Vaccines (1 of 1 - Standard series) Diabetes: Foot Exam Diabetes: Dental Exam Mammogram COVID-19 Vaccine () Depression Monitoring Follow Up: Follow up in about 12 weeks (around 06/05/2025) for LTOT, for Telehealth, with PCP or Pod provider. Niecy Addison DO 03/13/25 9:13 AM Subjective Jael Benson is a 59 y.o. who presents for a telehealth visit. Reason for visit/Primary concern: Chief Complaint Patient presents with Chronic Pain HPI RE: labs Has not been on anything new OTC other than some melatonin Has not had any dosing changes for prescription medications Already called nephrology office yesterday since got notified about abnormality - waiting to hear back and to get appointment Controlled Substances Monitoring: PDMP reviewed: Niecy Addison DO on 03/13/2025 9:25 AM [facility] PAIN MANAGEMENT DRUG PANEL Date Value Ref Range Status 03/16/2022 NEGATIVE NA Final No results found for: TRAMADOLUR Last pain management panel concordant: Yes Rationale for use of opioid: To treat moderate or severe pain and functional impairment caused by diagnosis of diabetic neuropathy Patient did not receive adequate pain control/function with 2 non-opioid treatments including: adjuvant anticonvulsants and adjuvantantidepressants at maximum tolerated doses, or Physical therapy Specialist referral and recommendation: endocrine, pain management (multiple) Opioid prescribed to treat non-cancer/non-malignant pain outside of active cancer (more content not included)... Normal [facility] 36on 03-12-2025 36 Call placed to Toxic ology lab and spoke with tech. They could not see the pain management panel on their end. This RN reviewed chart and noticed that order was placed as a future order. This RN released order and then lab was able to add on the test. Normal [facility] COMPREHENSIVE METABOLIC PANE Eric 03-11-2025 Albumin [Mass/Vol] 3.7 g/dL Normal 3.5-5.0 [facility] Comment on above: Performed By: #### L AB17, LAB18 ####Chief Deputy: VITA COOPER ([id number])[facility] (SWRLAB)[address] ALP [Catalytic activity/Vol] 65 U/L Normal 40-150 [facility] Comment on above: Performed By: #### L AB17, LAB18 ####Chief Deputy: VITA COOPER ([id number])[facility] TICO [place] (SWRLAB)[address] ALT [Catalytic activity/Vol] 16 U/L Normal <30 [facility] Comment on above: Performed By: #### L AB17, LAB18 ####Chief Deputy: VITA COOPER ([id number])[facility] (SWRL[facility])[address] Anion gap [Moles/Vol] 12 mmol/L Normal 3-13 [facility] Comment on above: Performed By: #### L AB17, LAB18 ####Chief Deputy: VITA COOPER ([id number])[facility]ITAL[facility] DOSHI [place] (SWRLAB)[address] AST [Catalytic activity/Vol] 30 U/L Normal <34 [facility] Comment on above: Performed By: #### L AB17, LAB18 ####Chief Deputy: VITA COOPER ([id number])[facility]ITAL[facility] JIMENEZTICO [place] (SWRLAB)[address] Bilirubin [Mass/Vol] 0.3 mg/dL Normal <1.2 [facility] Comment on above: Performed By: #### L 17, LAB18 ####Chief Deputy: VITA COOPER ([id number])[facility]ITAL[facility] DOSHI [place] (SWRLAB)[address] [place] [address] [place] Calcium [Mass/Vol] 9.5 mg/dL Normal 8.4-10.2 [facility] Comment on above: Performed By: #### Adi AB17, LAB18 ####Chief Deputy: VITA COOPER ([id number])[facility]OSPITALOsvaldo JIMENEZTICO RITTMAN (SWRLAB)[address] [place] [address] [place] Chloride [Moles/Vol] 94 mmol/L Low 98-107 [facility] Comment on above: Performed By: #### L AB17, LAB18 ####Chief Deputy: VITA COOPER ([id number])[facility]OS[facility]ITALOsvaldo JIMENEZTICO RITTMAN (SWRLAB)[address] [place] [address] [place] CO2 [Moles/Vol] 29 mmol/L Normal 22-29 [facility] Comment on above: Performed By: #### L AB17, LAB18 ####Chief Deputy: VITA COOPER ([id number])[facility]ITALOsvaldo JIMENEZTICO RITTMAN (SWRLAB)[address] [place] [address] [place] Creatinine [Mass/Vol] 2.21 mg/dL High 0.57-1.11 [facility] Comment on above: Performed By: #### L AB17, LAB18 ####Chief Deputy: VITA COOPER ([id number])[facility]OSPITALOsvaldo BARAHONATMAN (SWRLAB)[address] [place] [address] [place] GLOMERULAR FILTRATION RATE ML/MIN/1.73 SQ M.PREDICTED 25.3 mL/min/1.73m*2 Low >60.0 [facility] Comment on above: Result Comment: Calc ulation based on the Chronic Kidney Disease Epidemiology Collaboration (CKD-EPI) equation refit without adjustment for race Performed By: #### L AB17, LAB18 ####Chief Deputy: VITA COOPER ([id number])[facility]PITALOsvaldo TICOPORSHA BARAHONATMAN (SWRLAB)[address] [place] [address] Glucose [Mass/Vol] 254 mg/dL High 74-100 [facility] Comment on above: Performed By: #### Adi PERRIN17, LAB18 ####Chief Deputy: VITA COOPER ([id number])[facility]ITALOsvaldo BARAHONATMAN (SWRLAB)[address] [place] [address] [place] Potassium [Moles/Vol] 4.6 mmol/L Normal 3.5-5.1 [facility] Comment on above: Result Comment: Plas ma potassium values may be up to 0.5 mmol/L lower than serum values. Performed By: #### L AB17, LAB18 ####Chief Deputy: VITA COOPER ([id number])[facility]ITALOsvaldo BARAHONATMAN (SWRLAB)[address] [place] [address] [place] Protein [Mass/Vol] 7.0 g/dL Normal 6.4-8.3 [facility] Comment on above: Performed By: #### L AB17, LAB18 ####Chief Deputy: VITA COOPER ([id number])[facility]ITALOsvaldo BARAHONATMAN (SWRLAB)[address] [place] [address] [place] Sodium [Moles/Vol] 135 mmol/L Low 136-145 [facility] Comment on above: Performed By: #### L AB17, LAB18 ####Chief Deputy: VITA COOPER ([id number])[facility] (SWRLAB)[address] Urea nitrogen [Mass/Vol] 41 mg/dL High 9-23 [facility] Comment on above: Performed By: #### L AB17, LAB18 ####Chief Deputy: VITA COOPER ([id number])[facility] (SWRLAB)[address] Comprehensive metabolic 1998 panelon 03-11-2025 Albumin [Mass/Vol] 3.7 g/dL 3.5 - 5.0 g/dL [facility] ALP [Catalytic activity/Vol] 65 U/L 40 - 150 U/L [facility] ALT [Catalytic activity/Vol] 16 U/L NINF - 30 U/L [facility] Anion gap [Moles/Vol] 12 mmol/L 3 - 13 mmol/L [facility] AST [Catalytic activity/Vol] 30 U/L NINF - 34 U/L [facility] Bilirubin [Mass/Vol] 0.3 mg/dL [facility] 1.[facility] mg/dL [facility] Calcium [Mass/Vol] 9.5 mg/dL 8.4 - 10. 2 mg/dL [facility] Chloride [Moles/Vol] 94 mmol/L Low 98 - 10 7 mmol/L [facility] CO2 [Moles/Vol] 29 mmol/L 22 - 29 mmol/L [facility] Creatinine [Mass/Vol] 2.21 mg/dL High 0.57 - 1.11 mg/dL [facility] GFR/1.73 sq M.predicted (S/P/Bld) [Vol rate/Area] 25.3 mL/min Low - PINF [facility] Comment on above: Calculation based on the Chronic Kidney Disease Epidemiology Collaboration (CKD-EPI) equation refit without adjustment for race Glucose [Mass/Vol] 254 mg/dL High 74 - 100 mg/dL [facility] Potassium [Moles/Vol] 4.6 mmol/L 3.5 - 5.1 mmol/L [facility] Comment on above: Plasma potassium james ues may be up to 0.5 mmol/L lower than serum values. Protein [Mass/Vol] 7 g/dL 6.4 - 8.3 g/dL [facility] Sodium [Moles/Vol] 135 mmol/L Low 136 - 145 mmol/L [facility] Urea nitrogen [Mass/Vol] 41 mg/dL High 9 - 23 mg/dL [facility] FENTANYL, URINEon 03-11-2025 FENTANYL SCREEN, URINE Positive Abnormal Negative [facility] Comment on above: Result Comment: BLAYNE Salinas COMMENTS: Fentanyl has been screened for by Immunoassay at a 1 ng/ml threshold. POSITIVE results are not confirmed by a more specific alternative method unless requested. If confirmation is needed, request confirmation under separate order. NOTE: These results are for medical treatment only. Analysis performed using non-forensic procedures. Performed By: #### L [id number] ####Chief Deputy: VITA COOPER ([id number])[facility] ([facility])[address] [place] [address] LIPID PANELon 03-11-2025 Cholesterol [Mass/Vol] 122 mg/dL Normal <200 [facility] Comment on above: Performed By: #### L AB17, LAB18 ####Chief Deputy: VITA COOPER ([id number])[facility] TICO RITTMAN (SWRLAB)[address] [place] [address] [place] Cholesterol in HDL [Mass/Vol] 40 mg/dL Low >=60 [facility] Comment on above: Performed By: #### L AB17, LAB18 ####Chief Deputy: VITA COOPER ([id number])[facility] CAMPUSTICO RITTMAN (SWRLAB)[address] [place] [address] Cholesterol.total/Ch olesterol in HDL [Mass ratio] 3 {ratio} Normal [facility] Comment on above: Result Comment: Ref Range: < 3 Low Risk for CHD 3-6 Mod Risk for CHD > 6 High Risk for CHD Performed By: #### L AB17, LAB18 ####Chief Deputy: VITA COOPER ([id number])[facility]ITALOsvaldo JIMENEZTICO RITTMAN (SWRLAB)[address] LOW DENSITY LIPOPROTEIN 46 mg/dL Normal 0-<100 [facility] Comment on above: Performed By: #### L AB17, LAB18 ####Chief Deputy: VITA COOPER ([id number])[facility]ITALOsvaldo DOSHI RITTMAN (SWRLAB)[address] [place] [address] NON-HDL CHOLESTEROL, CALCULATED 82 Normal <130 [facility] Comment on above: Performed By: #### L AB17, LAB18 ####Chief Deputy: VITA COOPER ([id number])[facility]ITALOsvaldo DOSHI RITTMAN (SWRLAB)[address] Triglyceride [Mass/Vol] 179 mg/dL High <150 [facility] Comment on above: Performed By: #### L AB17, LAB18 ####Chief Deputy: VITA COOPER ([id number])[facility]ITALOsvaldo DOSHI RITTMAN (SWRLAB)[address] [place] [address] VERY LOW DENSITY LIPOPROTEIN, CALCULATED 36 mg/dL High <=30 [facility] Comment on above: Performed By: #### L AB17, LAB18 ####Chief Deputy: VITA COOPER ([id number])[facility]ITALOs[facility]do DOSHI RITTMAN (SWRLAB)[address] [place] [address] Lipid 1996 panelon Cholesterol [Mass/Vol] 122 mg/dL NINF - 200 mg/dL [facility] [employer] Cholesterol in HDL [Mass/Vol] 40 mg/dL Low 60 - PINF mg/dL [facility] [employer] Cholesterol in LDL [Mass/Vol] 46 mg/dL 0 - <100 [facility] Cholesterol.total/Ch olesterol in HDL [Mass ratio] 3 {ratio} [facility] [employer] Comment on above: Ref Range: < 3 Low Risk for CHD 3-6 Mod Risk for CHD > 6 High Risk for CHD NON-HDL CHOLESTEROL, CALCULATED 82 NINF - 130 [facility] Triglyceride [Mass/Vol] 179 mg/dL High NINF - 150 mg/dL [facility] VERY LOW DENSITY LIPOPROTEIN, CALCULATED 36 mg/dL High NINF - 30 mg/dL [facility] MICROALBUMIN / CREATININE UR INE RATIOon 03-11-2025 CREATININE, URINE 134.3 mg/dL High 47.0-110.0 [facility] Comment on above: Performed By: #### L [id number] ####Chief Deputy: VITA COOPER ([id number])[facility] TICO [employer]TMAN (SWRLAB)[address] [place] [address] [place] MICROALBUMIN, URINE 34.0 ug/mL Normal [facility] Comment on above: Result Comment: BLAYNE Salinas COMMENTS: Microalbumin concentrations <30 are considered normal, 30-300 are considered microalbuminuria (or risk of diabetic nephropathy), and >300 are considered clinical albuminuria (clinical nephropathy). Diabetes Care,27, Supplement 1, [id number] Performed By: #### L AB689 ####Chief Deputy: VITA COOPER ([id number])[facility] CAMPUSTICO RITTMAN (SWRLAB)[address] [place] [address] MICROALBUMIN/CREATIN INE RATIO 25 mg/g Normal <30 [facility] Comment on above: Performed By: #### L AB689 ####Chief Deputy: VITA COOPER ([id number])[facility] [employer]TMAN (SWRLAB)[address] [place] [address] Microalbumin/Creatinine rati o panel (U)on 03-11-2025 Albumin DL <= 20 mg/L (U) [Mass/Vol] 34 ug/mL [facility] Albumin/Creatinine DL <= 20 mg/L (U) [Mass ratio] 25 mg/g NINF - 30 mg/g [facility] CREATININE, URINE 134.3 mg/dL High 47.0 - 110 .0 mg/dL [facility] Interpretation and review of laboratory results Abnormal [facility] Microalbumin concentrations <30 are considered normal, 30-300 are considered microalbuminuria (or risk of diabetic nephropathy), and >300 are considered clinical albuminuria (clinical nephropathy). Diabetes Care,27, Supplement 1, [id number] [facility] No Panel Informationon 03-11 Interpretation and review of laboratory results Abnormal [facility] PAIN MANAGEMENT PANELon 02-25 PAIN MANAGEMENT PANEL, UR Negative Normal [facility] Comment on above: Performed By: #### L [id number] ####Chief Deputy: VITA COOPER ([id number])[facility])[address] [place] [address] REVIEWED BY Meaghan Brooks [employer] I [facility] Comment on above: Result Comment: BLAYNE Salinas COMMENTS: Medication: fentanyl patch Last Dose: n/a The following were tested for in the sample submitted at the listed thresholds: Amphetamines(1000ng/mL) Methamphetamine (1000 ng/mL) Cocaine and metabolites(300ng/mL) Codeine,Morphine,Hydrocodone,Hydromorphone(300 ng/mL each) Oxycodone(100 ng/mL) THC metabolites(50 ng/mL) The sample was checked for dilution and substitution. NOTE: These results are for medical treatment only. Analysis performed using non-forensic procedures. This test has not been cleared by the [place] Food and Drug Administration (FDA). The FDA has determined that such clearance or approval is not necessary. The performance chararcteristics have been determined by the clinical laboratories of [facility]. Performed By: #### L [id number] ####Chief Deputy: VITA COOPER ([id number])[address] 02-25-2025 36 Pharmacy was called and they stated the patient picked it up 02/17/25 for a 30-day supply. [place] [address] Please call pharmacy to see what the status is of the PA that was sent last week; or call patient to see if she got her medication [facility] 02-20-2025 36 PA filled out and in outgoing fax box [place] [address] Form filled out and faxed re: PA [place] [address] Will have staff call pharmacy to check status of PA [place] [address] Please call pharmacy to check on status of PA - I have not had any further contact with insurance company re: electronic PA that was submitted [facility] 02-17-2025 36 Call made to patient and message released. Patient stated understanding. No further needs at this time [place] [address] I just initiated the PA and am awaiting insurance decision - as per [employer] Message to patient If unable to get authorized, patient may pay [id number] for 1 or more patches to avoid withdrawal [facility] 36 S: Patient's spoke with [facility] nurse regarding pain patch B: fentaNYL (Duragesic) 62.5 MCG/HR A: States patient is going to run out of patches today, states they need a PA done By the end of the day because she will withdraw if she does not get this filled today. also asking if she cannot get them filled today what option does she have to avoid withdraw. asking for someone to call him back by the end of the day R: Message to Provider Reason for Disposition ? Caller requesting a CONTROLLED substance prescription refill (e.g., narcotics, ADHD medicines) Protocols used: Medication Refill and Renewal [id number] [facility] 36 Name of caller: Octavio vela Contact phone number: [phone] Relationship to Patient: spouse/SO Provider: Dr Addison Practice: [facility] Chief Complaint/Reason for Call: states she will need patches today, he wanted to make sure PA was done Best time of day caller can be reached: any Patient advised that office/PCP has 24-48 business hours to return their call: No [facility] 01-13-2025 36 Past 14 days Signed 2 weeks ago (12/30/2024): [place] [address]on 12-30-2024 36 Refills already sent to pharmacy [place] [address] Name of caller: Kvng hernandez Contact phone number: [phone] Relationship to Patient: patient Provider: Azael Practice: [facility] Chief Complaint/Reason for Call: Patient states at her last appointment, it was discussed that her imipramine (Tofranil) was going to be split up into 2 different prescriptions: imipramine 100 mg tablet nightly imipramine (Tofranil) 50 MG tablet PRN Patient asking refills be sent to [id number] in [place]. Please advise. Best time of day caller can be reached: any Patient advised that office/PCP has 24-48 business hours to return their call: Yes- please notify patient via [employer] when sent [place] [address] Patient out of medication. Medication name: gabapentin (Neurontin) 400 MG capsule Medication dosage: 400 MG Monthly quantity needed: 60 How many day supply requestin days Medication route: oral (PO) Medication administration time(s): 2 times a day (BID) If taking medication PRN, reason for taking medication: N/A If this is a controlled substance do you receive this or any other controlled medication from any other doctor or facility: No Ordering provider: Adela Date of last office visit: 12/10/24 Date of next office visit: 03/13/25 Date of last refill: (see medication tab): 09/30/24 Updated/Validated preferred pharmacy: Yes- [id number] - [place], [place] - [address] Patient instructed to contact the pharmacy prior to picking up the medication: Yes [facility] 36 Chart reviewed for compliance with [facility] refill guidelines. Screening criteria met. Last appointment 12/10/24. Next appointment 03/13/25. Last labs . Please review and send prescription as appropriate. If no future appointment noted, the last office visit notes were reviewed to determine follow-up time frame and this note forwarded to front end developer designer to schedule. [facility] 36on 12-28-2024 36 S: Patient huey gainesd the clinical access center requesting refills B: Refill request for gabapentin and Tofranil A: Refill requests have been pended in a previous encounter. He is aware controlled substance cannot be refilled on the weekend . R: message sent to office . Patient instructed to call back with worsening symptoms, concerns or questions. Reason for Disposition Caller requesting a CONTROLLED substance prescription refill (e.g., narcotics, ADHD medicines) Protocols used: Medication Refill and Renewal [id number] 2912-10-2024 29 Addended by: PAT ALEJANDRE on: 03/11/2025 04:25 PM Modules accepted: Orders [facility] 37on 12-10-2024 37 Please call [phone] to schedule an appointment for your mammogram. [facility] Progress Noteon 12-10-2024 Progress Note Recheck urine to con firm previous abnormality Currently on ARB [facility] Progress Note Overall controlled o n Imipramine 100 mg but having to occasionally take an extra 50 mg Will send PRN refill to pharmacy She will let me know via MyChart if having to use extra 50 mg more frequently in the week/month Normal [facility] Progress Note Controlled After addressing medication(s) compliance, adverse effects, and efficacy of treatment(s), medications for this controlled chronic condition will be continued. UDS ordered Normal [facility] Progress Note Prechart note: (the following data was documented before the visit began) Rooming: vv Possible agenda: Provider notes: next LTOT 03/13/25; urine ordered On Imipramine 100 mg (2-50mg) - ok? Multidisciplinary team needs: Health Maintenance to be addressed today: mammo; CRC, labs - endo not ordering TSH, CMP, lipid? [place] Medicaid Search by Drug Name [place] Medicaid Drug List Health Maintenance Due Topic Date Due Diabetes: Celiac Disease Screening Never done Colorectal Cancer Screening Never done MMR Vaccines (1 of 1 - Standard series) Never done Diabetes: Foot Exam Never done Diabetes: Dental Exam Never done Mammogram Never done COVID-19 Vaccine () 04/28/2024 Diabetes: Estimated Glomerular Filtration Rate for Kidney Health 09/21/2024 Lipid Panel 09/21/2024 (end precharting)- [facility] [place] - [address] [facility] [id number] Dept: [phone] Dept Loc: [phone] Patient was seen today via Telehealth by agreement and consent. I used the following Telehealth technology: Audio and video capabilities. Patient location: [place] Patient Location: Home. This patient encounter is appropriate and reasonable under the circumstances: Behavioral Health . The patient has been advised of the potential risks and limitations of this mode of treatment (including but not limited to the absence of in-person examination) and has agreed to be treated in a remote fashion in spite of them. Any and all of the patient's/patient's family's questions on this issue have been answered and I have made no promises or guarantees to the patient. The patient has also been advised to contact this office for worsening conditions or problems, and seek emergency medical treatment and/or call 911 if the patient deems either necessary. The patient stated that they are currently in the [facility]. If the patient is a minor, permission has been obtained by the parent or guardian for the patient to receive medical care at this visit. Assessment/Plan 1. Chronic painful diabetic neuropathy (CMS/HCC) (HCC) Assessment & Plan: Controlled After addressing medication(s) compliance, adverse effects, and efficacy of treatment(s), medications for this controlled chronic condition will be continued. UDS ordered Orders: - fentaNYL (Duragesic) 62.5 MCG/HR; Place 1 patch on the skin Every 72 hours. Do not start before December 17, 2024., Starting 12/17/2024, Until Zahraa 01/16/2025, Normal - fentaNYL (Duragesic) 62.5 MCG/HR; Place 1 patch on the skin Every 72 hours. Do not start before January 16, 2025., Starting Zahraa 01/16/2025, Until 02/15/2025, Normal - fentaNYL (Duragesic) 62.5 MCG/HR; Place 1 patch on the skin Every 72 hours. Do not start before February 15, 2025., Starting 02/15/2025, Until 03/17/2025, Normal - PAIN MANAGEMENT PANEL - Fentanyl, urine - Comprehensive metabolic panel 2. Psychophysiological insomnia Assessment & Plan: Overall controlled on Imipramine 100 mg but having to occasionally take an extra 50 mg Will send PRN refill to pharmacy She will let me know via ticketscriptt if having to use extra 50 mg more frequently in the week/month Orders: - Comprehensive metabolic panel 3. 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 Screening cholesterol level - Lipid panel 6. Encounter for screening mammogram for malignant neoplasm of breast Comments: Reminded patient to schedule for mammogram BIMAL 7. Colon cancer screening Comments: Reminded patient to complete Cologuard BIMAL Health Maintenance Due Topic Diabetes: Celiac Disease Screening Colorectal Cancer Screening MMR Vaccines (1 of 1 - Standard series) Diabetes: Foot Exam Diabetes: Dental Exam Mammogram COVID-19 Vaccine () Diabetes: Estimated Glomerular Filtration Rate for Kidney Health Lipid Panel Follow Up: Follow up in about 3 months (around 03/13/2025) for LTOT, for Telehealth, with PCP or Pod provider. Niecy Addison DO 12/10/24 1:17 PM Subjective Jael Benson is a 59 y.o. who presents for a telehealth visit. Reason for visit/Primary concern: Chief Complaint Patient presents with Chronic Pain HPI Follow up of: insomnia Medication(s) taking: imipramine Days in a week that patient misses dose of med(s): none Adverse effects of medication(s): No Takes two every night Sometimes has to take an extra - maybe due to being uncomfortable and/or anxiety Has done this twice in the last month Controlled Substances Monitoring: No data to display OARRs Reviewed. [employer] PAIN MANAGEMENT DRUG PANEL Date Value Ref Range Status 03/16/2022 NEGATIVE NA Final No results f (more content not included)... Normal [facility] POCT UA Automated manually r esultedon 10-30-2024 Appearance (U) Clear Clear [facility] Work Phone: Glucose Test strip (U) [Mass/Vol] Negative NEGATIVE mg/dl [facility] Work Phone: Hemoglobin Ql (U) Negative NEGATIVE [facility] Work Phone: [phone] Interpretation and review of laboratory results Abnormal [facility] Work Phone: Leukocyte esterase Test strip Ql (U) SMALL (1+) Abnormal NEGATIVE [facility] Work Phone: Nitrite Ql (U) Positive Abnormal NEGATIVE [facility] Work Phone: pH (U) 5.5 [pH] No Reference Range Established [facility] Work Phone: [phone] POC Bilirubin, Urine Negative NEGATIVE [facility]: POC Color, Urine Yellow Straw, Yellow, Light-Yellow [facility] Work Phone: POC Ketones, Urine Negative NEGATIVE mg/dl [facility] Work Phone: POC Protein, Urine Negative NEGATIVE mg/dl [facility] Work Phone: POC Specific [place], Urine 1.015 1.005 - 1.035 [facility] Work Phone: POC Urobilinogen, Urine 0.2 0.2, 1.0 EU/DL [facility] Work Phone: [facility] Work Phone: 36on 09-30-2024 36 Name of caller: Octavio vela Contact phone number: [phone] Relationship to Patient: spouse/SO Provider: Dr. Addison Practice: [facility] Chief Complaint/Reason for Call: Jael called in to check on the status of this request. Per Jael he is concerned about the patient going without her medication sine he was advised that Dr. Addison would be out of the office. I advised him that someone else will cover for her while she is out. Pleas follow up to advise. Best time of day caller can be reached: any Patient advised that office/PCP has 24-48 business hours to return their call: Yes [facility] 36 Name of caller: Octavio vela Marcelino Contact phone number: [phone] Relationship to Patient: spouse/SO Provider: Dr. Addison [facility] [facility] [place] Chief Complaint/Reason for Call: Caller was calling in to make sure the [employer] message for a Rx refill was received, see message above. Caller stated pt is out of this medication and will need this filled today. Caller also wants to make sure that this will be sent to: [facility] [address] [place] [address] Ph. [phone] Please advise. Thank you. Best time of day caller can be reached: Any Patient advised that office/PCP has 24-48 business hours to return their call: Yes [facility] [employer] [facility] [address] [facility] 36 Last apt 09/19/24. Ne xt apt 12/10/[address] [facility] Progress Noteon 09-25-2024 Progress Note Living with Pain: Interview Jael Benson Visit date: @TODAYSDATE@ PCP: Niecy Addison DO Jael is a 59 y.o. female who presents today for: Pain assessment Patient was identified and seen today via Telehealth by agreement and consent. I used the following Telehealth technology: Audio and video capabilities. Patient location: VV Patient Location: Home. This patient encounter is appropriate and reasonable under the circumstances: transportation issues . The patient has been advised of the potential risks and limitations of this mode of treatment (including but not limited to the absence of in-person examination) and has agreed to be treated in a remote fashion in spite of them. Any and all of the patient's/patient's family's questions on this issue have been answered and I have made no promises or guarantees to the patient. The patient has also been advised to contact this office for worsening conditions or problems, and seek emergency medical treatment and/or call 911 if the patient deems either necessary. The patient stated that they are currently in the state [facility]. If the patient is a minor, permission has been obtained by the parent or guardian for the patient to receive medical care at this visit. Time in 10:50am / Time out 11:40am Total Time: 50 minutes Patient Consent : [facility] discussed role and services including limits to confidentiality, documentation in a single EMR with care team, and potential financial responsibility. [facility] and pt discussed Living with Pain structure and group involvement. Patient expressed understanding and is agreeable to same. yes Reason for Referral to Behavioral Health: Pain assessment in preparation for living with pain group. Individual sessions. Social Hx: : yes, 38 years Children: yes, 2 boys; 2 grandchildren [address] Residential setting: Lives in own home with and 3 dogs Support System: , dad lives in [place], mom a little over a year ago. Son, Edward who lives across the street. Expecting a baby in April. Family Mental Health Hx: no Explain: Education: some college Employment: no If Unemployed Receiving Disability: no Disability Pending?: no Desire to return to work: no Financial Concerns: no Legal Concerns: no Alcohol Use: none Substance Use: none Hx of Trauma: no Spiritual: Episcopal but not over the top, believe in God Other Pertinent History: none Pain Information: Primary Pain Location: Body riddled with neuropathy. Diabetic since age 13 (46 years). Started in feet, can't feel feet anymore. Pain in legs a lot; particularly from the knee down. Knees at times, hands bother me the most. Non fixable carpal tunnel, neuropathy, and arthritis. Measure pain using a 0-10 scale with 0 being no pain and 10 being the worst pain imaginable: Current Pain Intensity: 3-4 Worst Pain intensity: 10+ Least Pain intensity (in last seven days): 3 Primary Pain Duration: Onset: (date/year if known) At 31, (28 years ago) starting in feet, unable to stand and crying. Pain meds but didn't like to take it. Just tried to deal with it. Neurologist for years, started pt on pain patch. Continued for quite a while. Then on morphine pills once a day. On those until age 48 then had a bad reaction to morphine and another medication and almost . Hospitalized, weaned off meds. And started on Fentanyl patch. # years: see above # months: see above Precipitating Event: Diabetes Pain Qualities: yes, constant, very much like contractions sometimes comes and goes in legs; constant in hands. Wakes up out of a sleep. Patient Stated: What makes your pain worse?: Hands hurt more when it rains. What provides relief for your pain?: Medication, massage machine for hands that warms up, sometimes water can help. Is pain better or worse at certain times of the day?: Hand pain can be worse at night. Everything can be worse at night. How do you cope with your pain? Had it for so long, just learned to live with it as it gradually has gotten worse over time. How does Pain impact your life?: Mobility: yes, can't walk when feet and legs work. When hands hurt it affects me being able to work in the yard. Mood: yes, contributes to depression Psychosocial Activities: no, tends to stay home a lot. 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 Needs to go places with someone. Recreation: yes Relationships: yes Sleep: yes Social: yes Work/School: yes Explain any impairments: Describe a Typical Day: Get up between 7:45 and 8:45, take care of dogs - feed and outside, laundry, cleaning what I can. Previous Pain Treatments: Surgery on hands for carpal tunnel. Medications. Describe Relief (if any): see above Psychiatric history: Hosp: 3 times, first at 17 following a SA; last time between 17 and 18, 3 different times at main campus Outpati (more content not included)... Normal [facility] 36on 09-20-2024 36 Lab add-on was sent to lab via right fax. Your fax has been successfully sent to Lab add-on at [phone]. 09/20/2024 9:58:09 AM Transmission Record Sent to [phone] with remote ID [id number] Result: (0) Success Page record: 1 - 2 Elapsed time: 01:07 on channel 54 09/20/2024 9:57:37 AM Conversion Record Successfully created cover sheet. Type: application/vnd.openxmlfo ats-officedocument.word processingml.document G3 to TIFF #1: Success [image/g3] (32ms) GhostScript TIFF #1: Success [image/tiff] (218ms) Resubmitted: [application/postscript] Word Automation #1: Success [image/tiff] (1733ms) ([id number]) 09/20/2024 9:57:19 AM Conversion Record [RFPD90.[email or web address].PRT] Type: application/postscript G3 to TIFF #1: Success [image/g3] (43ms) GhostScript TIFF #1: Success [image/tiff] (281ms) ([id number]) 09/20/2024 9:57:08 AM Origin Record Created by ANTHONY [facility] 36 ----- Message from Niecy Addison DO sent at 09/20/2024 9:06 AM EST ----- Please call toxicology for add-on order to urine collected 1/23/25 - EPIC orders have been entered Normal [facility] No Panel InformationOrdered By: Agapito Zhao on 09-20-2024 FENTANYL SCREEN, URINE Positive Negative [facility] Fentanyl has been screened for by Immunoassay at a 1 ng/ml threshold. POSITIVE results are not confirmed by a more specific alternative method unless requested. If confirmation is needed, request confirmation under separate order. NOTE: These results are for medical treatment only. Analysis performed using non-forensic procedures. [facility] 29on 09-19-2024 29 Addended by: NIECY ADDISON on: 09/20/2024 09:06 AM Modules accepted: Orders Normal [facility] FENTANYL, URINEon 09-19-2024 FENTANYL SCREEN, URINE Positive Normal Negative [facility] Comment on above: Result Comment: BLAYNE R COMMENTS: Add-on to specimen collected 09/19/24 Fentanyl has been screened for by Immunoassay at a 1 ng/ml threshold. POSITIVE results are not confirmed by a more specific alternative method unless requested. If confirmation is needed, request confirmation under separate order. NOTE: These results are for medical treatment only. Analysis performed using non-forensic procedures. Performed By: #### L [id number] ####Chief Deputy: VITA COOPER ([id number])[address] MICROALBUMIN / CREATININE UR INE RATIOon 09-19-2024 CREATININE, URINE 53.0 mg/dL Normal 47.0-110.0 [facility] Comment on above: Performed By: #### L [id number] ####Chief Deputy: VITA COOPER ([id number])[facility])[address] [place] [address] MICROALBUMIN, URINE 30.3 ug/mL Normal [facility] Comment on above: Result Comment: ORDE R COMMENTS: Microalbumin concentrations <30 are considered normal, 30-300 are considered microalbuminuria (or risk of diabetic nephropathy), and >300 are considered clinical albuminuria (clinical nephropathy). Diabetes Care,27, Supplement 1, Q91-54, 2004 Performed By: #### L [id number] ####Chief Deputy: VITA COOPER ([id number])[facility] ([facility])[address] [place] [address] [place] MICROALBUMIN/CREATIN INE RATIO 57 mg/g High <30 [facility] Comment on above: Performed By: #### L [id number] ####Chief Deputy: VITA COOPER ([id number])[facility] ([facility])[address] [place] [address] Microalbumin/Creatinine rati o panel (U)Ordered By: Tiffanie Martinez on 09-19-2024 Albumin DL <= 20 mg/L (U) [Mass/Vol] 30.3 ug/mL [facility] Albumin/Creatinine DL <= 20 mg/L (U) [Mass ratio] 57 mg/g High NINF - 30 mg/g [facility] CREATININE, URINE 53 mg/dL 47.0 - 110 .0 mg/dL [facility] Interpretation and review of laboratory results Abnormal [facility] Microalbumin concentrations <30 are considered normal, 30-300 are considered microalbuminuria (or risk of diabetic nephropathy), and >300 are considered clinical albuminuria (clinical nephropathy). Diabetes Care,27, Supplement 1, J87-62, 2004 [facility] No Panel InformationOrdered By: Eleazar Caal on 09-19-2024 PAIN MANAGEMENT PANEL, UR Negative [facility] REVIEWED BY Tawny Caal [facility] The following were t ested for in the sample submitted at the listed thresholds: Amphetamines(1000ng/mL) Methamphetamine (1000 ng/mL) Cocaine and metabolites(300ng/mL) Codeine,Morphine,Hydrocod one,Hydromorphone(300 ng/mL each) Oxycodone(100 ng/mL) THC metabolites(50 ng/mL) The sample was checked for dilution and substitution. NOTE: These results are for medical treatment only. Analysis performed using non-forensic procedures. This test has not been cleared by the US Food and Drug Administration (FDA). The FDA has determined that such clearance or approval is not necessary. The performance chararcteristics have been determined by the clinical laboratories of [facility]. [facility] Office Visiton 09-19-2024 Follow-up visit [id number] Rebeca Benson 1965 Date Provider Department Center 09/19/2024 NIECY ERWIN [facility] None Family History Problem Relation Age of Onset Mental illness Mother Other Mother Comments: ALS Breast cancer Mother 77 Comments: stage 1, hormone related COPD Father Asthma Father Heart disease Father Comments: stents Heart attack Sister 31 Cancer Paternal Grandmother Comments: unknown Asthma Paternal Grandmother Family Status - Relation Status Age at Mother Notes: patient's mother has ALS, diagnosed around age 70 Father Alive Sister Paternal Grandmother Level of Service:[address]23 [place] OFFICE/OUTPATIENT ESTABLISHED MOD MDM 30 MIN Reason for Visit and Comments: Follow-up [704610] Normal [facility] PAIN MANAGEMENT PANELon 08-29 PAIN MANAGEMENT PANEL, UR Negative Normal [facility] Comment on above: Performed By: #### L [id number] ####Chief Deputy: VITA COOPER ([id number])[facility] [employer] REVIEWED BY Tawny Caal [place] [facility] Comment on above: Result Comment: BLAYNE [place] COMMENTS: Medication: fentanyl Last Dose: n/a - patient on patch q72 hours The following were tested for in the sample submitted at the listed thresholds: Amphetamines(1000ng/mL) Methamphetamine (1000 ng/mL) Cocaine and metabolites(300ng/mL) Codeine,Morphine,Hydrocodone,Hydromorphone(300 ng/mL each) Oxycodone(100 ng/mL) THC metabolites(50 ng/mL) The sample was checked for dilution and substitution. NOTE: These results are for medical treatment only. Analysis performed using non-forensic procedures. This test has not been cleared by the US Food and Drug Administration (FDA). The FDA has determined that such clearance or approval is not necessary. The performance chararcteristics have been determined by the clinical laboratories of [facility]. Performed By: #### L [id number] ####Chief Deputy: VITA COOPER ([id number])[facility] ([facility])[address] [place] [address] Progress Noteon 09-19-2024 Progress Note Controlled After addressing medication(s) compliance, adverse effects, and efficacy of treatment(s), medications for this controlled chronic condition will be continued. Normal [facility] Progress Note Controlled After addressing medication(s) compliance, adverse effects, and efficacy of treatment(s), medications for this controlled chronic condition will be continued. Normal [facility] Progress Note Controlled After addressing medication(s) compliance, adverse effects, and efficacy of treatment(s), medications for this controlled chronic condition will be continued. [facility] to meet with patient for Living with Pain evaluation Yearly LTOT paperwork filled out today Normal [facility] Progress Note Visit reason: LTOT Patient does not admit to respiratory symptoms of cough, congestion, shortness of breath, or fever. Additional information: Medications needing to be refilled: no Patient was able to ambulate safely to the examination room. Provider was not notified of possible fall risk. Qa Lead: not offered, due to no disrobing or intimate exam anticipated PHQ2: negative Suicidal ideation: absent Food insecurity screening: negative Mechanic Helper used: no Normal [facility] Progress Note Prechart note: (the following data was documented before the visit began) Rooming: Yearly LTOT packet (found in black bins in clinic), urine for UDS, PHQ9 Possible agenda: LTOT Provider notes: Multidisciplinary team needs: [facility] assessment? Health Maintenance to be addressed today: Cologuard ordered 03/2024 Health Maintenance Due Topic Date Due Diabetes: Celiac Disease Screening Never done Colorectal Cancer Screening Never done MMR Vaccines (1 of 1 - Standard series) Never done Diabetes: Dental Exam Never done Hepatitis A Vaccines (1 of 2 - Risk 2-dose series) Never done Mammogram Never done COVID-19 Vaccine ( season) 2024 TSH Level 09/21/2024 Diabetes: Estimated Glomerular Filtration Rate for Kidney Health 09/21/2024 (end precharting)- [facility] - [address] [facility] [address] Dept: [phone] Dept Loc: [phone] Assessment/Plan 1. Chronic painful diabetic neuropathy (CMS/HCC) (HCC) Assessment & Plan: Controlled After addressing medication(s) compliance, adverse effects, and efficacy of treatment(s), medications for this controlled chronic condition will be continued. [facility] to meet with patient for Living with Pain evaluation Yearly LTOT paperwork filled out today Orders: - PAIN MANAGEMENT PANEL - Microalbumin / creatinine urine ratio - fentaNYL (Duragesic) 62.5 MCG/HR; Place 1 patch on the skin Every 72 hours., Starting Zahraa 09/19/2024, Until 10/19/2024, Normal - fentaNYL (Duragesic) 62.5 MCG/HR; Place 1 patch on the skin Every 72 hours. Do not start before October 19, 2024., Starting 10/19/2024, Until 11/18/2024, Normal - fentaNYL (Duragesic) 62.5 MCG/HR; Place 1 patch on the skin Every 72 hours. Do not start before November 18, 2024., Starting 11/18/2024, Until 12/18/2024, Normal 2. Essential hypertension Assessment & Plan: Controlled After addressing medication(s) compliance, adverse effects, and efficacy of treatment(s), medications for this controlled chronic condition will be continued. 3. Psychophysiological insomnia Assessment & Plan: Controlled After addressing medication(s) compliance, adverse effects, and efficacy of treatment(s), medications for this controlled chronic condition will be continued. 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 Need for vaccination - Flu vaccine (FLUCELVAX), trivalent, MDCK, preservative-free 6. Colon cancer screening Comments: Reminded patient to complete Cologuard which she still has at home Follow Up: Follow up in about 3 months (around 12/18/2024) for LTOT, with PCP or Pod provider, for Telehealth. Niecy Addison DO 09/19/24 11:22 AM Subjective Jael Benson is a 59 y.o. who presents for: Chief Complaint Patient presents with Follow-up HPI Controlled Substances Monitoring: No data to display OARRs Reviewed. [employer] PAIN MANAGEMENT DRUG PANEL Date Value Ref Range Status 03/16/2022 NEGATIVE NA Final No results found for: TRAMADOLUR Last pain management panel concordant: Yes Rationale for use of opioid: To treat moderate or severe pain and functional impairment caused by diagnosis of diabetic neuropathy Patient did not receive adequate pain control/function with 2 non-opioid treatments including: adjuvant anticonvulsants and adjuvantantidepressants at maximum tolerated doses Specialist referral and recommendation: pain management, palliative Opioid prescribed to treat non-cancer/non-malignant pain outside of active cancer treatment, palliative care, end of life/hospice care, sickle cell, severe burn, traumatic crushing of tissue, amputation, major orthopedic surgery. This short-acting opioid is prescribed after confirmation of the following; This patient is not opioid-naive.This patient has received opioid medications for at least 7 days prior to this prescription. An opioid agreement is recorded in the electronic record and confirms discussion of the benefits and risks of opioid therapy. RED FLAGS: Forging or altering a prescription: No Using another person's pain or scheduled medication: No Illegal drugs, including THC, in PNM: No Controlled drugs not prescribed by this office in PNM: No Intoxication: No Overdose: No Legal problems related to controlled substances: No Behavior that threatens staff or physician: No Accident motor vehicle crash: No PAIN ROS How is the pain medication helping your function: much improved: ambulation, bathing and hygiene, grooming, toileting, and dressing Are you having any sleepiness: No Are you having any constipation: No Are you having any mental slowing: No Are you having any sexual dysfunction: No PEG 1 (painon average in the past week with medications): 4 PEG 2 (pain interference with enjoyment of life): 1 PEG 3 (pain interference with normal a (more content not included)... Normal [facility] CNOVon 07-22-2024 CNOV Office Visit (SLEWST ) ----- JAEL BENSON ([id number]) 1965 F Date Time Provider Department 07/22/24 3:30 PM KOKI PEÑA During your visit today, we recorded the following information about you: Pulse Respiration Blood pressure Weight 92/minute 16/minute 119/73 91.2 kg Koki Peña APRN.CNP 07/28/2024 6:02 AM Signed [facility] New Patient Evaluation PATIENT NAME: Jael Benson DATE OF SERVICE: July 22, 2024 CONSULTING PROVIDER: No referring provider defined for this encounter. REASON FOR VISIT: HPI: Jael Benson is a 59 year old female. Sleep-related history: accompanied by her , he wonders about sleep apnea, he uses CPAP. Pt started snoring in about the past 5-6 yrs. notes she often has raspy voice. She has year-round nasal congestion. Sleeps with HOB elevated, breathes better that way. Anxiety and depression since teens. Then anxiety at HS got severe; would get up and walk around which didn't help the anxiety; started amitriptyline 25 mg then 50 mg in February 2024 which was helpful but she gained 22 lbs. Now on imipramine 50 mg which helps and no adverse effects. On fentanyl patch for chronic pain. SLEEP-WAKE SCHEDULE Bedtime: 10 PM. She has a hard time falling asleep. Time to fall asleep: 2 hrs Wake time: 8-9 AM After falling asleep: she wakes up 2-3 time(s) per night, and does not know the reason for waking up. Able to fall back asleep. Has headphones on all night. On weekends, lets her sleep until 10 AM since he is home to let dogs out Average total sleep time (in a 24 hour period): 9-10 hours. SLEEP-RELATED DETAILS Preferred sleep position: back Breathing disturbances and other behaviors during sleep: snoring and frequent leg movements. GERD or aspiration: No Waking up with heart pounding or racing: No Anxiety or rumination: Yes She reports having an urge to move the legs. Arms and legs would move on their own, on gabapentin for many yrs which controls the symptoms. The urge to move the legs is not worse in the evening or nighttime. The urge to move the legs begins or worsens during periods of rest or inactivity (e.g. lying or sitting). The urge to move the legs is partially or totally relieved by movements such as walking or stretching, at least as long as the activity continues. The urge to move the legs occurs never now and began in her early 30s. There is history of iron deficiency or anemia. She has not been told that she has leg kicking during sleep. She denies any history of parasomnias. Excessive daytime sleepiness / fatigue is a problem. Excessive Daytime sleepiness/fatigue has been a problem for lifelong, and worse for 6-8 yrs per . There is a history of head injury (brain swelling due to build up of morphine in her system). She does not report sleep paralysis or sleep-related hallucinations (only with fever) or cataplexy WAKE-RELATED DETAILS She does not work. She does not have difficulty with memory or concentration. She does not drive. She does not take naps intentionally but falls asleep easily, eg any time passenger in car or on iPad She does drink diet Pepsi caffeinated beverages per day--6 bottles. She has gained 22 pounds since 6 mos. [place] Sleepiness Scale: Sitting and readin Watching TV: 3 Sitting, inactive in a public place (e.g. a theatre or a meeting): 2 As a passenger in a car for an hour without a break: 3 Lying down to rest in the afternoon when circumstances permit: 3 Sitting and talking to someone: 0 Sitting quietly after a lunch without alcohol: 3 In a car, while stopped for a few minutes in the traffic: 0 Total: 17 Patient Questionnaires Sleep Scores 07/16/2024 Sleep Questions Reason for visit: Difficulty falling or staying asleep or poor sleep quality On average, hours of sleep in 24 hours: 10 Accidents or near accidents due to drowsy drivin 07/16/2024 [place] Sleepiness Scale Score Incomplete 07/16/2024 PROMIS CAT Sleep Disturbance PROMIS Sleep Disturbance T-Score 52 (within normal limits) PROMIS Sleep Disturbance Percentile 42 07/16/2024 Restless Leg Syndrome Score Incomplete 07/16/2024 PHQ-9 Score 5 07/13/2024 PROMIS Global Health - (T-Scores - the mean of general population = 50. 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; left hand neuropathy Retinal hemorrhage left eye prosthetic Type I (j (more content not included)... Normal [facility] CNOVon 07-17-2024 CNOV Office Visit (ENDOMN ) ----- JAEL BENSON ([id number]) 1965 F Date Time Provider Department 07/17/24 2:30 PM ROJAS JACKSON During your visit today, we recorded the following information about you: Pulse Blood pressure Weight 87/minute 144/55 91.6 kg Obinna Brandt MA 07/17/2024 2:15 PM Signed Thank you for choosing the [facility] Department of Endocrinology, Diabetes and Metabolism. Did you know that you need to call 48 hours in advance of your scheduled visit, if you are unable to make your appointment? The [facility] [place] thanks you for your commitment, because patients not showing to their appointment results in a lost opportunity for patients to receive [facility] at the [facility]. To Cancel an appointment, please choose one of the following: - Call the Appointment Call Center at [phone] - From [email or web address], Go to Appointments - Cancel Appts If cancelling, consider your need to reschedule to prevent further delays in your care. To Schedule an appointment, please choose one of the following: - Call the Appointment Call Center at [phone] - From [email or web address], Go to Appointments - Request an Appt Heraclio Jorge MD 07/17/2024 4:00 PM Addendum [facility] DIABETES follow up Consultation requested by For an opinion regarding Diabetes. My final recommendations will be communicated back to the requesting physician by way of shared Medical record or letter to requesting physician via US mail. Referring provider: Dr. Addison Phone: N/A Fax: HISTORY OF PRESENT ILLNESS: Jael Benson is a 58 year old female with PMH of type 1 diabetes who presents today for follow up for T1D. Patient presents today for follow-up. Since the last visit she has changed her pump and instead of Tandem and now she is on Omnipod since summer. She has adapted well and really likes the new pump. She has gained weight, however attributes most of it due to a new medication that she tried for a month, and made her gain over 20 pounds. She has now discontinued it. She is trying to watch her diet and planning to exercise. Since switching to a different pump she has been doing well, has not had any major episode of hypoglycemia. Her has access to her blood sugar readings and because the patient has hypoglycemia unawareness, and he pays attention to it and calls her whenever he sees his her blood sugars dropping. Date of Diagnosis: at age 13 Symptoms of Hyperglycemia : Polydipsia Symptoms of Hypoglycemia: Loss of early awareness ----- Current DM Regimen: Omnipod Had Tandom t slim for 3 years Pump Settings: -- Pump Type: omnipod -- Manual Boluses: Yes -- Changes the site: every 3 days. -- Av B -- Avg daily carbs: - -- Avg Basal: 3.79 -- Avg Bolus: 16.5 Basal rate: Time U/Hr 0.16 Carb ratio: 1:11 Sensitivity Factor: 1:50 Blood glucose target: 110 Active insulin time: 3 ----- Physical Activity: Regular Diet: Counts Carbs Frequency of skipping meals is If on prandial insulin, is prandial insulin is skipped when a meal is skipped: Frequency of skipping diabetes meds: SMBG Type of Monitor: Dexcom Frequency of Monitoring: Not applicable BG Values: Not applicable Range of glucose levels is between -to - mg/dl ----- Last Eye Exam: March Last Foot Exam: due for Previous Diabetes Education: not applicable. Computed FIB-4 Calculation unavailable. One or more values for this score either were not found within the given timeframe or did not fit some other criterion. 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 Normal [facility] Hugo 06-14-2024 [facility] ----- MARCELINOJAEL Longoria ([id number]) 1965 F Date Time Provider Department 06/14/24 CASSANDRA JACKSON During your visit today, we recorded the following information about you: Tiffanie Grimes 06/14/2024 9:11 AM Signed Received a DWO for CGM Form from [employer] for sensors and transmitter. Completed clerical portions of the form and submitted to the provider to complete, review, and sign. DWAYNE URIARTE Oracle Adf Consultant II Endocrinology AND Metabolism [facility] X-20 Shi Pendleton MA 06/18/2024 8:51 AM Signed Completed form faxed to [employer] at [phone]. Transmission successful. Sent for scanning Shi Pendleton Oracle Adf Consultant II Endocrinology AND Metabolism [facility] F20 AND X20 Shi Pendleton MA 06/18/2024 10:34 AM Signed Form scanned to chart Shi Pendleton Oracle Adf Consultant II [facility] Metabolism [facility] F20 AND X20 Allergies As of Date: 06/14/2024 Noted Allergy Reaction LEVOFLOXACIN 04/30/2021 14 - Other: See Comments Comments: insomnia ANTIHISTAMINES 07/08/2003 5 - Intolerance Comments: (benadryl) Make her hyper METOCLOPRAMIDE 06/03/2003 5 - Intolerance Comments: reglan NITROFURAN ANALOGUES 06/03/2003 5 - Intolerance Comments: macrobid PHENOTHIAZINES 06/03/2003 5 - Intolerance Comments: compazine Date Reviewed: 12/08/2023 Reviewed by: Lisa Shelby MD - Fully Assessed Reason for Visit: Forms [913] Cmt: DWO for CGM - Sensors AND Transmitter [[employer]] Prescriptions as of 06/18/2024 - Blood-Glucose Sensor (DEXCOM G6 SENSOR) jeff Use as directed to monitor blood glucose 4-6 times per day. ICD-10: E10.65 ICD-10: E11.65 (insulin dependent) - Blood-Glucose Transmitter (DEXCOM G6 TRANSMITTER) jeff 1 Device every 10 days. - Blood-Glucose Meter,Continuous (DEXCOM G6 TRAP SETTER) misc Use as directed to monitor blood glucose 4-6 times per day. ICD-10: E10.65 ICD-10: E11.65 (insulin dependent) - Blood-Glucose Meter,Continuous (DEXCOM G7 TRAP SETTER) misc 1 Each every 10 days. - aspirin, enteric coated (ASPIRIN, ENTERIC COATED) 81 mg EC tablet Take 1 tablet by mouth once daily. - ADULT MUTIVITAMIN W/ EXTRA D GUMMY Take by mouth. - Blood-Glucose Meter,Continuous (DEXCOM G7 TRAP SETTER) misc Use as directed to monitor blood glucose 4-6 times per day. ICD-10: E10.65 ICD-10: E11.65 (insulin dependent) - Infusion Set for Insulin Pump (JUSTUS INFUSION SET) iset Change it 3 days - Insulin Pump Syringe (PARADIGM RESERVOIR) 1.8 mL misc Use as needed - insulin lispro (HUMALOG U-100 INSULIN) 100 unit/mL injection Inject SQ as directed in insulin pump up to 100 units daily - glucagon 3 mg/actuation nasal spray (BAQSIMI) Use 1 Chandler in the nose as needed for low blood sugar. May repeat after 15 minutes using a new device if there is no response. - aspirin (ASPIR-81 ORAL) Take by mouth. - atorvastatin (LIPITOR) 40 mg tablet Take 40 mg by mouth once daily. - scopolamine (TRANSDERM-SCOP) patch 1.5 mg/72 hr (delivers 1 mg over 3 days) Apply 1 disc behind the ear at least 4 hours prior to exposure and every 3 days as needed. - ondansetron HCl (ZOFRAN ORAL) Take by mouth. - venlafaxine ER (EFFEXOR XR) 150 mg 24 hr capsule TAKE 1 CAPSULE DAILY IN THE MORNING - venlafaxine (EFFEXOR) 75 mg tablet TAKE 1 TABLET DAILY AT BEDTIME - medroxyPROGESTERone (PROVERA, CYCRIN) 2.5 mg tablet Take 2.5 mg by mouth once daily. - Estradiol (ESTRACE) 0.5 mg tablet Take 0.5 mg by mouth once daily. - fentaNYL (DURAGESIC) 50 mcg/hr - meclizine (ANTIVERT) 25 mg tab Take 25 mg by mouth twice daily as needed. - insulin lispro (HUMALOG) 100 unit/mL injection Inject SQ as directed in insulin pump up to 100 units daily - Multivitamin capsule Take 1 capsule by mouth once daily. - gabapentin (NEURONTIN) 800 mg tablet Take 1 tablet by mouth four times daily. - glucagon, human recombinant, (GLUCAGON EMERGENCY) 1 mg injection 1 mg as directed. INJECT FOR INSULIN SHOCK - losartan (COZAAR) 50 mg ORAL tablet Take 1 tablet by mouth once daily. - Catheter 14-16 Fr- Misc Misc use as directed four times a day Meds Comments as of 12/28/2012: ID # thru optum [id number] Problem List As Of Date 06/14/2024 Noted Resolved ALLERGIC RHINITIS NOS [J30.9] 11/09/2001 Uncontrolled type 1 diabetes mellitus with opht*11/09/2001 JOINT PAIN-SHLDER [M25.519] 11/09/2001 ADV EFFECT MED/BIOL SUB NOS [995.2] 03/04/2002 URINARY OBSTRUCTION NOS [599.6] 06/20/2003 ASA CLASS II [1001] 06/20/2003 ABDOMINAL PAIN OTHER SPEC SITE [R10.9] 04/03/2007 URETERIC OBSTRUCTION NEC [N13.5] 04/09/2007 HEARING LOSS NOS [H91.90] 07/07/2008 ESOPHAGEAL REFLUX [K21.9] 11/10/2008 TRIGGER FINGER [M65.30] 11/25/2008 DEPRESSIVE DISORDER NEC [F32.89] 01/01/2009 Kidney Disease [N28.9] 04/09/2010 Type 1 d (more content not included)... Normal [facility] Progress Noteon 06-13-2024 Progress Note Controlled After addressing medication(s) compliance, adverse effects, and efficacy of treatment(s), medications for this controlled chronic condition will be continued. Normal [facility] Progress Note Controlled After addressing medication(s) compliance, adverse effects, and efficacy of treatment(s), medications for this controlled chronic condition will be continued. Normal [facility] Progress Note Controlled After addressing medication(s) compliance, adverse effects, and efficacy of treatment(s), medications for this controlled chronic condition will be continued. Asymptomatic Normal [facility] Progress Note Controlled After addressing medication(s) compliance, adverse effects, and efficacy of treatment(s), medications for this controlled chronic condition will be continued. UDS results pending Yearly LTOT paperwork and meet with [facility] at next visit [facility] Progress Note [facility] [place] - [address] [place] [address] Dept: [phone] Dept Loc: [phone] Patient was seen today via Telehealth by agreement and consent. I used the following Telehealth technology: Audio and video capabilities. Patient location: Patient Location: Home. This patient encounter is appropriate and reasonable under the circumstances: transportation issues . The patient has been advised of the potential risks and limitations of this mode of treatment (including but not limited to the absence of in-person examination) and has agreed to be treated in a remote fashion in spite of them. Any and all of the patient's/patient's family's questions on this issue have been answered and I have made no promises or guarantees to the patient. The patient has also been advised to contact this office for worsening conditions or problems, and seek emergency medical treatment and/or call 911 if the patient deems either necessary. The patient stated that they are currently in the [facility]. If the patient is a minor, permission has been obtained by the parent or guardian for the patient to receive medical care at this visit. Assessment/Plan 1. Psychophysiological insomnia Assessment & Plan: Controlled After addressing medication(s) compliance, adverse effects, and efficacy of treatment(s), medications for this controlled chronic condition will be continued. Orders: - imipramine (Tofranil) 50 MG tablet; Take 1 tablet (50 mg) by mouth Nightly., Starting Zahraa 06/13/2024, Until Mon06/08/2025, Normal 2. Chronic painful diabetic neuropathy (CMS/HCC) (HCC) Assessment & Plan: Controlled After addressing medication(s) compliance, adverse effects, and efficacy of treatment(s), medications for this controlled chronic condition will be continued. UDS results pending Yearly LTOT paperwork and meet with [facility] at next visit Orders: - gabapentin (Neurontin) 400 MG capsule; Take 1 capsule (400 mg) by mouth 2 times daily., Starting Zahraa 06/13/2024, Until Mon09/11/2024, Normal - fentaNYL (Duragesic) 62.5 MCG/HR; Place 1 patch on the skin Every 72 hours. Do not start before June 19, 2024., Starting Mon06/19/2024, Until Mon07/19/2024, Normal - fentaNYL (Duragesic) 62.5 MCG/HR; Place 1 patch on the skin Every 72 hours. Do not start before July 19, 2024., Starting Mon07/19/2024, Until Mon08/18/2024, Normal - fentaNYL (Duragesic) 62.5 MCG/HR; Place 1 patch on the skin Every 72 hours. Do not start before August 18, 2024., Starting Mon08/18/2024, Until Mon09/17/2024, Normal 3. Recurrent major depressive disorder, in remission (HCC) Assessment & Plan: Controlled After addressing medication(s) compliance, adverse effects, and efficacy of treatment(s), medications for this controlled chronic condition will be continued. Orders: - venlafaxine (Effexor) 75 MG tablet; Take 1 tablet (75 mg) by mouth Nightly., Starting Mon06/13/2024, Until Mon06/08/2025, Normal - venlafaxine XR (Effexor XR) 150 MG 24 hr capsule; Take 1 capsule (150 mg) by mouth daily., Starting Mon06/13/2024, Until Mon06/08/2025, Normal 4. Coronary artery disease involving [place] coronary artery of [place] heart without angina pectoris Assessment & Plan: Controlled After addressing medication(s) compliance, adverse effects, and efficacy of treatment(s), medications for this controlled chronic condition will be continued. Asymptomatic Orders: - atorvastatin (Lipitor) 40 MG tablet; Take 1 tablet (40 mg) by mouth daily., Starting Mon06/13/2024, Until Mon06/08/2025, Normal Health Maintenance Due Topic Colorectal Cancer Screening MMR Vaccines (1 of 1 - Standard series) Diabetes: Dental Exam Mammogram Influenza Vaccine (1) Follow Up: Follow up in 14 weeks (on 09/19/2024) for LTOT, for in-person OV, with PCP or Pod provider. Niecy Addison DO 06/13/24 9:20 AM Subjective Jael Benson is a 59 y.o. who presents for a telehealth visit. Reason for visit/Primary concern: Chief Complaint Patient presents with Insomnia LTOT Insomnia Follow up of: insomnia Medication(s) taking: imipramine 50 mg Days in a week that patient misses dose of med(s): none Adverse effects of medication(s): No Takes about 2 hours before bedtime Weight gain from previous medication improved -lost a little Vertigo meds only PRN - rare, no need for refills [facility]: Venlafaxine 150 mg and 75 mg Lipitor Losartan Progesterone Estradiol [facility]: Tofranil Gabapentin Geoff's: Fentanyl Mammogram scheduled next month - Rell UDS done 06/11/24 Eye exam - 04/20 q year Dental exam - will call to make appointment to decide what to do; wants to get implants but unclear if able versus dentures Will get flu shot at pharmacy or [facility] Controlled Substances Monitoring: No data to display (more content not included)... Normal [facility] FENTANYL AND METAB, UR QNT ( BKR [facility])on 06-11-2024 [facility] FENTANYL 21.30 ng/mL Normal [facility] Comment on above: Performed By: #### L [id number] ####[facility] ([employer])[id number] [place], [place] [facility] FENTANYL See Below [facility] Comment on above: Performed By: #### L [id number] ####[facility] ([employer])[id number] [place], [place] [facility] NORFENTANYL See Below [facility] Comment on above: Result Comment: BLAYNE Salinas COMMENTS: Drug Monitor, Fentanyl, QN, Urine: \X09\SEE BELOW Test ordered Result Cutoff Fentanyl 21.30 H <0.50 ng/mL Norfentanyl >500 H <0.50 ng/mL Fentanyl Comments See LDT message See Fentanyl Message Test Performed by Sung [facility] [place], [address] [place], [place] Tutu Newman M.D., Ph.D., Director of Laboratories , CLIA [id number] Notes and Comments: \X09\ This drug testing is for medical treatment only. Analysis was performed as non-forensic testing and these results should be used only by healthcare providers to render diagnosis or treatment, or to monitor progress of medical conditions. LDT Message: This test was developed and its analytical performance characteristics have been determined by [facility] [place], [place]. It has not been cleared or approved by the U.S. Food and Drug Administration. This assay has been validated pursuant to the CLIA regulations and is used for clinical purposes. Fentanyl Message: Fentanyl, Norfentanyl detected is consistent with the use of the drug Fentanyl. Healthcare Providers needing Interpretation assistance, please contact us at [phone] ( ) M-F, 8am to 10pm EST Test Performed by [facility], [facility] [place], [address] [place], [place] Tutu Newman M.D., Ph.D., Director of Laboratories , CLIA [id number] Performed By: #### L [id number] ####[facility] ([employer])[id number] [place], [place] [facility] NORFENTANYL >500 ng/mL [facility] Comment on above: Performed By: #### L [id number] ####[facility] ([employer])[id number] [place], [place] [facility] 36on 05-23-2024 36 Chart reviewed for compliance with [facility] refill guidelines. Screening criteria met. Last appointment 03/27/2024. Next appointment 06/13/2024. Last labs n/a . Please review and send prescription as appropriate. If no future appointment noted, the last office visit notes were reviewed to determine follow-up time frame and this note forwarded to front end developer designer to schedule. [facility] 04-25-2024 CNPN Telephone (ENDCMN) ----- MARCELINOJAEL CASAS ([id number]) 1965 F Date Time Provider Department 04/25/24 CASSANDRA JACKSON During your visit today, we recorded the following information about you: Tiffanie Grimes 04/25/2024 11:54 AM Signed Received a prescription form from [facility] for patient's Omnipod 5 PODS. Completed clerical portion of the form and submitted to the provider to sign. DWAYNE URIARTE Oracle Adf Consultant II Endocrinology [facility] Metabolism [facility] X-20 [facility] 04/26/2024 9:54 AM Signed Received completed/signed form from provider. [phone] Transmitted successfully Sent to be scanned into chart [facility] Oracle Adf Consultant [facility] X20, F-20 [facility] 05/10/2024 11:14 AM Signed Indexed into patient's chart [facility] Oracle Adf Consultant [facility] X-20, F-20 Allergies As of Date: 04/25/2024 Noted Allergy Reaction LEVOFLOXACIN 04/30/2021 14 - Other: See Comments Comments: insomnia ANTIHISTAMINES 07/08/2003 5 - Intolerance Comments: (benadryl) Make her hyper METOCLOPRAMIDE 06/03/2003 5 - Intolerance Comments: reglan NITROFURAN ANALOGUES 06/03/2003 5 - Intolerance Comments: macrobid PHENOTHIAZINES 06/03/2003 5 - Intolerance Comments: compazine Date Reviewed: 12/08/2023 Reviewed by: Lisa Shelby MD - Fully Assessed Reason for Visit: Forms [523] Cmt: Prescription Form - Omnipod 5 PODS [[employer]] Prescriptions as of 05/10/2024 - aspirin, enteric coated (ASPIRIN, ENTERIC COATED) 81 mg EC tablet Take 1 tablet by mouth once daily. - Blood-Glucose Meter,Continuous (DEXCOM G7 TRAP SETTER) misc 1 Each. - ADULT MUTIVITAMIN W/ EXTRA D GUMMY Take by mouth. - Blood-Glucose Meter,Continuous (DEXCOM G6 TRAP SETTER) misc Use as directed to monitor blood glucose 4-6 times per day. ICD-10: E10.65 ICD-10: E11.65 (insulin dependent) - Blood-Glucose Meter,Continuous (DEXCOM G7 TRAP SETTER) misc Use as directed to monitor blood glucose 4-6 times per day. ICD-10: E10.65 ICD-10: E11.65 (insulin dependent) - Infusion Set for Insulin Pump (JUSTUS INFUSION SET) iset Change it 3 days - Insulin Pump Syringe (PARADIGM RESERVOIR) 1.8 mL misc Use as needed - insulin lispro (HUMALOG U-100 INSULIN) 100 unit/mL injection Inject SQ as directed in insulin pump up to 100 units daily - glucagon 3 mg/actuation nasal spray (BAQSIMI) Use 1 Chandler in the nose as needed for low blood sugar. May repeat after 15 minutes using a new device if there is no response. - Blood-Glucose Sensor (DEXCOM G6 SENSOR) jeff Use as directed to monitor blood glucose 4-6 times per day. ICD-10: E10.65 ICD-10: E11.65 (insulin dependent) - aspirin (ASPIR-81 ORAL) Take by mouth. - atorvastatin (LIPITOR) 40 mg tablet Take 40 mg by mouth once daily. - scopolamine (TRANSDERM-SCOP) patch 1.5 mg/72 hr (delivers 1 mg over 3 days) Apply 1 disc behind the ear at least 4 hours prior to exposure and every 3 days as needed. - ondansetron HCl (ZOFRAN ORAL) Take by mouth. - venlafaxine ER (EFFEXOR XR) 150 mg 24 hr capsule TAKE 1 CAPSULE DAILY IN THE MORNING - venlafaxine (EFFEXOR) 75 mg tablet TAKE 1 TABLET DAILY AT BEDTIME - medroxyPROGESTERone (PROVERA, CYCRIN) 2.5 mg tablet Take 2.5 mg by mouth once daily. - Estradiol (ESTRACE) 0.5 mg tablet Take 0.5 mg by mouth once daily. - fentaNYL (DURAGESIC) 50 mcg/hr - meclizine (ANTIVERT) 25 mg tab Take 25 mg by mouth twice daily as needed. - insulin lispro (HUMALOG) 100 unit/mL injection Inject SQ as directed in insulin pump up to 100 units daily - Multivitamin capsule Take 1 capsule by mouth once daily. - gabapentin (NEURONTIN) 800 mg tablet Take 1 tablet by mouth four times daily. - glucagon, human recombinant, (GLUCAGON EMERGENCY) 1 mg injection 1 mg as directed. INJECT FOR INSULIN SHOCK - losartan (COZAAR) 50 mg ORAL tablet Take 1 tablet by mouth once daily. - Catheter 14-16 Fr- Misc Misc use as directed four times a day Meds Comments as of 12/28/2012: ID # thru optum [id number] Problem List As Of Date 04/25/2024 Noted Resolved ALLERGIC RHINITIS NOS [J30.9] 11/09/2001 Uncontrolled type 1 diabetes mellitus with opht*11/09/2001 JOINT PAIN-SHLDER [M25.519] 11/09/2001 ADV EFFECT MED/BIOL SUB NOS [995.2] 03/04/2002 URINARY OBSTRUCTION NOS [599.6] 06/20/2003 ASA CLASS II [1001] 06/20/2003 ABDOMINAL PAIN OTHER SPEC SITE [R10.9] 04/03/2007 URETERIC OBSTRUCTION NEC [N13.5] 04/09/2007 HEARING LOSS NOS [H91.90] 07/07/2008 ESOPHAGEAL REFLUX [K21.9] 11/10/2008 TRIGGER FINGER [M65.30] 11/25/2008 DEPRESSIVE DISORDER NEC [F32.89] 01/01/2009 Kidney Disease [N28.9] 04/09/2010 Type 1 diabetes mellitus with neurological gabriela*10/18/2011 Fissure in ski (more content not included)... Normal [facility] CNOVon 04-24-2024 CNOV Office Visit (PNMDNA ) ----- JAEL BENSON ([id number]) 1965 F Date Time Provider Department 04/24/24 2:30 PM LOC HDEZ PNMDNA During your visit today, we recorded the following information about you: Loc Hdez MD 04/24/2024 4:12 PM Signed [facility] Pain Management Department Date: April 24, 2024 - 2:18 PM Jael Benson is self referred. Chief Complaint: neuropathy SUBJECTIVE: Jael Benson, is a 58 year old female who presents with diabetic peripheral neuropthy. The pain started 20+ years ago, with no known injury or trauma. The pain onset was gradual in nature. The patient states that the current pain is persistent. Her pain is located in the bilateral feet. The pain is described as sharp pain. The pain intensity is rated 7. The pain is exacerbated by no change in pain symptoms with position or activity and relieved by no known factors. Symptoms interfere with physical activity, walking, sleeping, sitting, bathing, driving, cooking, household cleaning, lifting, and social activities. Litigation: No. Worker's Compensation: No. Prior pain treatment has included: Medication(s): Fentanyl patch, gabapentin Patient Entered Questionnaires PROMIS Score Percentiles 10/30/2022 11/09/2022 04/24/2024 PROMIS Global Health Scale Physical Health Percentile 31 31 31 7 Mental Health Percentile 63 63 63 19* Multiple values from one day are sorted in reverse-chronological order 04/24/2024 Physical Health Physical Function Percentile 12 Pain Interference Percentile 10 Percentiles provide an indication of how the patient's score ranks in relation to the general population. Higher percentile rankings indicate better function/quality of life. 50th percentile is the average of the general population and indicates half of respondents had a worse score. > 31st percentile is within normal limits or better * < 31st percentile is at least ? SD worse than population, which may be clinically relevant < 16th percentile is at least 1 SD worse than population and warrants attention ALLERGIES Allergen Reactions Levofloxacin Other: See Comments insomnia Antihistamines Intolerance (benadryl) Make her hyper Metoclopramide Intolerance reglan Nitrofuran Analogues Intolerance macrobid Phenothiazines Intolerance compazine Current Medications: Pain medications reviewed and reconciled in the medication list: Yes. Current Outpatient Medications Medication Sig aspirin, enteric coated (ASPIRIN, ENTERIC COATED) 81 mg EC tablet Take 1 tablet by mouth once daily. Blood-Glucose Meter,Continuous (DEXCOM G7 TRAP SETTER) misc 1 Each. ADULT MUTIVITAMIN W/ EXTRA D GUMMY Take by mouth. Blood-Glucose Meter,Continuous (DEXCOM G6 TRAP SETTER) misc Use as directed to monitor blood glucose 4-6 times per day. ICD-10: E10.65 ICD-10: E11.65 (insulin dependent) Blood-Glucose Meter,Continuous (DEXCOM G7 TRAP SETTER) misc Use as directed to monitor blood glucose 4-6 times per day. ICD-10: E10.65 ICD-10: E11.65 (insulin dependent) Infusion Set for Insulin Pump (JUSTUS INFUSION SET) iset Change it 3 days Insulin Pump Syringe (PARADIGM RESERVOIR) 1.8 mL misc Use as needed insulin lispro (HUMALOG U-100 INSULIN) 100 unit/mL injection Inject SQ as directed in insulin pump up to 100 units daily glucagon 3 mg/actuation nasal spray (BAQSIMI) Use 1 Chandler in the nose as needed for low blood sugar. May repeat after 15 minutes using a new device if there is no response. Blood-Glucose Sensor (DEXCOM G6 SENSOR) jeff Use as directed to monitor blood glucose 4-6 times per day. ICD-10: E10.65 ICD-10: E11.65 (insulin dependent) aspirin (ASPIR-81 ORAL) Take by mouth. atorvastatin (LIPITOR) 40 mg tablet Take 40 mg by mouth once daily. scopolamine (TRANSDERM-SCOP) patch 1.5 mg/72 hr (delivers 1 mg over 3 days) Apply 1 disc behind the ear at least 4 hours prior to exposure and every 3 days as needed. ondansetron HCl (ZOFRAN ORAL) Take by mouth. venlafaxine ER (EFFEXOR XR) 150 mg 24 hr capsule TAKE 1 CAPSULE DAILY IN THE MORNING venlafaxine (EFFEXOR) 75 mg tablet TAKE 1 TABLET DAILY AT BEDTIME medroxyPROGESTERone (PROVERA, CYCRIN) 2.5 mg tablet Take 2.5 mg by mouth once daily. Estradiol (ESTRACE) 0.5 mg tablet Take 0.5 mg by mouth once daily. fentaNYL (DURAGESIC) 50 mcg/hr meclizine (ANTIVERT) 25 mg tab Take 25 mg by mouth twice daily as needed. insulin lispro (HUMALOG) 100 unit/mL injection Inject SQ as directed in insulin pump up to 100 units daily Multivitamin capsule Take 1 capsule by mouth once daily. gabapentin (NEURONTIN) 800 mg tablet Take 1 tablet by mouth four times daily. glucagon, human recombinant, (GLUCAGON EMERGENCY) 1 mg injection 1 mg as directed. INJECT FOR INSULIN SHOCK losartan (COZAAR) 50 mg ORAL tablet Take 1 tablet by mouth once daily. Catheter 14-16 Fr- [facility]isc [facility] (more content not included)... Normal [facility] 36on 04-23-2024 36 Chart reviewed for compliance with [facility] refill guidelines. Screening criteria met. Last appointment 03/27/24. Next appointment 06/13/24. Last labs . Please review and send prescription as appropriate. If no future appointment noted, the last office visit notes were reviewed to determine follow-up time frame and this note forwarded to front end developer designer to schedule. Normal [facility] JAEL BENSON ([id number]) 1965 F Date Time Provider Department 04/05/24 JAEL CIFUENTES During your visit today, we recorded the following information about you: Jael Cifuentes RN 04/05/2024 9:41 AM Signed Insulin Pump Post-Training Follow Up Pt started on Omnipod 5 pump on April 04, 2024 Pt states they have successfully changed infusion set: no, first change of the pod is due this afternoon. Current pump settings verified via online portal or discussion with patient: no, patient is having issues with portal linking their Omnipod to our [facility] account. Did not bring their login information with them to initial training. Encouraged to reach out to [employer] support line or bring their login information with them to a follow up appointment where clinic staff can assist. Secure message with step by step instructions sent to patient to walk them through set-up was sent. Patient reports hypoglycemia under 70 mg/dL in the last 3 days: yes but treated and it recovered quickly Patient reports hyperglycemia over 250 mg/dL in the last 3 days: no, reports yesterday her sugars were very consistently in the 120-140 range. Patient concerns: none were stated other than having an issue with the portal linking Other issues: none Follow-up with educator scheduled: none Follow-up with provider scheduled: 06/12/2024 Allergies As of Date: 04/05/2024 Noted Allergy Reaction LEVOFLOXACIN 04/30/2021 14 - Other: See Comments Comments: insomnia ANTIHISTAMINES 07/08/2003 5 - Intolerance Comments: (benadryl) Make her hyper METOCLOPRAMIDE 06/03/2003 5 - Intolerance Comments: reglan NITROFURAN ANALOGUES 06/03/2003 5 - Intolerance Comments: macrobid PHENOTHIAZINES 06/03/2003 5 - Intolerance Comments: compazine Date Reviewed: 12/08/2023 Reviewed by: Lisa Shelby MD - Fully Assessed Reason for Visit: Insulin pump start f/u [Other] Prescriptions as of 04/05/2024 - aspirin, enteric coated (ASPIRIN, ENTERIC COATED) 81 mg EC tablet Take 1 tablet by mouth once daily. - Blood-Glucose Meter,Continuous (DEXCOM G7 TRAP SETTER) misc 1 Each. - ADULT MUTIVITAMIN W/ EXTRA D GUMMY Take by mouth. - Blood-Glucose Meter,Continuous (DEXCOM G6 TRAP SETTER) misc Use as directed to monitor blood glucose 4-6 times per day. ICD-10: E10.65 ICD-10: E11.65 (insulin dependent) - Blood-Glucose Meter,Continuous (DEXCOM G7 TRAP SETTER) misc Use as directed to monitor blood glucose 4-6 times per day. ICD-10: E10.65 ICD-10: E11.65 (insulin dependent) - Infusion Set for Insulin Pump (JUSTUS INFUSION SET) iset Change it 3 days - Insulin Pump Syringe (PARADIGM RESERVOIR) 1.8 mL misc Use as needed - insulin lispro (HUMALOG U-100 INSULIN) 100 unit/mL injection Inject SQ as directed in insulin pump up to 100 units daily - glucagon 3 mg/actuation nasal spray (BAQSIMI) Use 1 Chandler in the nose as needed for low blood sugar. May repeat after 15 minutes using a new device if there is no response. - Blood-Glucose Sensor (DEXCOM G6 SENSOR) jeff Use as directed to monitor blood glucose 4-6 times per day. ICD-10: E10.65 ICD-10: E11.65 (insulin dependent) - aspirin (ASPIR-81 ORAL) Take by mouth. - atorvastatin (LIPITOR) 40 mg tablet Take 40 mg by mouth once daily. - scopolamine (TRANSDERM-SCOP) patch 1.5 mg/72 hr (delivers 1 mg over 3 days) Apply 1 disc behind the ear at least 4 hours prior to exposure and every 3 days as needed. - ondansetron HCl (ZOFRAN ORAL) Take by mouth. - venlafaxine ER (EFFEXOR XR) 150 mg 24 hr capsule TAKE 1 CAPSULE DAILY IN THE MORNING - venlafaxine (EFFEXOR) 75 mg tablet TAKE 1 TABLET DAILY AT BEDTIME - medroxyPROGESTERone (PROVERA, CYCRIN) 2.5 mg tablet Take 2.5 mg by mouth once daily. - Estradiol (ESTRACE) 0.5 mg tablet Take 0.5 mg by mouth once daily. - fentaNYL (DURAGESIC) 50 mcg/hr - meclizine (ANTIVERT) 25 mg tab Take 25 mg by mouth twice daily as needed. - insulin lispro (HUMALOG) 100 unit/mL injection Inject SQ as directed in insulin pump up to 100 units daily - Multivitamin capsule Take 1 capsule by mouth once daily. - gabapentin (NEURONTIN) 800 mg tablet Take 1 tablet by mouth four times daily. - glucagon, human recombinant, (GLUCAGON EMERGENCY) 1 mg injection 1 mg as directed. INJECT FOR INSULIN SHOCK - losartan (COZAAR) 50 mg ORAL tablet Take 1 tablet by mouth once daily. - Catheter 14-16 Fr- Misc Misc use as directed four times a day Meds Comments as of 12/28/2012: ID # thru optum [id number] Problem List As Of Date 04/05/2024 Noted Resolved ALLERGIC RHINITIS NOS [J30.9] 11/09/2001 Uncontrolled type 1 diabetes mellitus with opht*11/09/2001 JOINT PAIN-SHLDER [M25.519] 11/09/2001 ADV EFFECT MED/BIOL SUB NOS [995.2] 03/04/2002 URINARY OBSTRUCTION NOS [599.6] 06/20/2003 ASA CLASS II [1001] 06/20/2003 ABDOMINAL PAIN OTHER SPEC SITE [R10.9] 08 (more content not included)... Normal [facility] CNNURSEon 04-02-2024 CNNURSE Nurse Visit (EDEDME) ----- JAEL BENSON ([id number]) 1965 F Date Time Provider Department 04/02/24 2:00 PM JAEL CIFUENTES During your visit today, we recorded the following information about you: Jael Cifuentes, RN 04/02/2024 3:20 PM Signed Type of visit: In person individual Patient started today on Omnipod 5 insulin pump. Type of training:upgrade If upgrade, patient was previously on the following pump:t:slim Pump programming done today by: patient with educator supervision Insulin information: Patient did not have the account linked to [employer] and did not bring their login information with them, we reviewed how to do so once they return home and will plan to follow up with them via phone later in the week and confirm data is visible. Rapid-acting insulin loaded into pump today: Brittney See phone encounter dated 03/22/24 for pump settings approved by provider and programmed into pump today. Basal 0.16 Bolus ICR - 11 ISF - 75 Target 110 Duration - 4 Pre-pump training and pump safety information: Patient can demonstrate correct use of a carb ratio:Yes Patient Verbalizes rules regarding when to change infusion set due to hyperglycemia: Yes Patient verbalizes importance of carrying a pump emergency kit:Yes Patient verbalizes back-up plan for pump failure:Yes Handouts provided: None - we reviewed the Guide that comes with the pump controller Follow-up plan for glucose management given to patient: Plan to follow up with patient via phone Follow-up plan for education: Follow-up training needed:no follow-up training needed This is a non-billable encounter through [employer] but will be billed to the following pump company: [employer]. This visit note will be communicated to the healthcare provider via access to shared medical record. I spent 75 minutes with this patient today. Jael Cifuentes RN Allergies As of Date: 04/02/2024 Noted Allergy Reaction LEVOFLOXACIN 04/30/2021 14 - Other: See Comments Comments: insomnia ANTIHISTAMINES 07/08/2003 5 - Intolerance Comments: (darlene) Make her hyper METOCLOPRAMIDE 06/03/2003 5 - Intolerance Comments: reglan NITROFURAN ANALOGUES 06/03/2003 5 - Intolerance Comments: macrobid PHENOTHIAZINES 06/03/2003 5 - Intolerance Comments: compazine Date Reviewed: 12/08/2023 Reviewed by: Lisa Shelby MD - Fully Assessed Primary Visit Diagnosis:Type 1 diabetes mellitus with diabetic polyneuropathy (HCC) [E10.42] Prescriptions as of 04/02/2024 - aspirin, enteric coated (ASPIRIN, ENTERIC COATED) 81 mg EC tablet Take 1 tablet by mouth once daily. - Blood-Glucose Meter,Continuous (DEXCOM G7 TRAP SETTER) misc 1 Each. - ADULT MUTIVITAMIN W/ EXTRA D GUMMY Take by mouth. - Blood-Glucose Meter,Continuous (DEXCOM G6 TRAP SETTER) misc Use as directed to monitor blood glucose 4-6 times per day. ICD-10: E10.65 ICD-10: E11.65 (insulin dependent) - Blood-Glucose Meter,Continuous (DEXCOM G7 TRAP SETTER) misc Use as directed to monitor blood glucose 4-6 times per day. ICD-10: E10.65 ICD-10: E11.65 (insulin dependent) - Infusion Set for Insulin Pump (JUSTUS INFUSION SET) iset Change it 3 days - Insulin Pump Syringe (PARADIGM RESERVOIR) 1.8 mL misc Use as needed - insulin lispro (HUMALOG U-100 INSULIN) 100 unit/mL injection Inject SQ as directed in insulin pump up to 100 units daily - glucagon 3 mg/actuation nasal spray (BAQSIMI) Use 1 Chandler in the nose as needed for low blood sugar. May repeat after 15 minutes using a new device if there is no response. - Blood-Glucose Sensor (DEXCOM G6 SENSOR) jeff Use as directed to monitor blood glucose 4-6 times per day. ICD-10: E10.65 ICD-10: E11.65 (insulin dependent) - aspirin (ASPIR-81 ORAL) Take by mouth. - atorvastatin (LIPITOR) 40 mg tablet Take 40 mg by mouth once daily. - scopolamine (TRANSDERM-SCOP) patch 1.5 mg/72 hr (delivers 1 mg over 3 days) Apply 1 disc behind the ear at least 4 hours prior to exposure and every 3 days as needed. - ondansetron HCl (ZOFRAN ORAL) Take by mouth. - venlafaxine ER (EFFEXOR XR) 150 mg 24 hr capsule TAKE 1 CAPSULE DAILY IN THE MORNING - venlafaxine (EFFEXOR) 75 mg tablet TAKE 1 TABLET DAILY AT BEDTIME - medroxyPROGESTERone (PROVERA, CYCRIN) 2.5 mg tablet Take 2.5 mg by mouth once daily. - Estradiol (ESTRACE) 0.5 mg tablet Take 0.5 mg by mouth once daily. - fentaNYL (DURAGESIC) 50 mcg/hr - meclizine (ANTIVERT) 25 mg tab Take 25 mg by mouth twice daily as needed. - insulin lispro (HUMALOG) 100 unit/mL injection Inject SQ as directed in insulin pump up to 100 units daily - Multivitamin capsule Take 1 capsule by mouth once daily. - gabapentin (NEURONTIN) 800 mg tablet Take 1 tablet by mouth four times daily. - glucagon, human recombinant, (GLUCAGON EMERGENCY) 1 mg injection 1 mg as directed. INJECT FOR INSULIN SHOCK - losartan (C (more content not included)... Normal [facility]20[facility] ----- JAEL BENSON ([id number]) 1965 F Date Time Provider Department 03/22/24 ROJAS JACKSON During your visit today, we recorded the following information about you: Megan Stovall RN 03/22/2024 11:01 AM Signed Karl Magana, This patient has received the Omnipod 5 pump and needs training. Patient is upgrading from [employer]. You are being assigned the training. Please contact patient to schedule training or instruct your PSS team on how to schedule. Please advise patient to bring the following to the pump start once scheduled: 1. Omnipod pump controller/PDM 2. Vial of rapid-acting insulin with at least 200 units in it 3. At least 2 of each of the following items: Omnipod pods Please coordinate the followin. Orders for pump rate settings Patient has been added to the pump training spreadsheet, so update as needed. Please respond BIMAL if you would prefer this training gets reassigned. Thanks! Deepak Jesusita 03/22/2024 1:39 PM Addendum 1st attempt: Tried calling patient, but number is blocked and call could not go through. I sent patient a [email or web address] message to call and schedule an appointment. I will postpone this and follow up on it. JuanitoLaura 03/25/2024 8:21 AM Signed Patient scheduled for 04/02/24 Allergies As of Date: 03/22/2024 Noted Allergy Reaction LEVOFLOXACIN 04/30/2021 14 - Other: See Comments Comments: insomnia ANTIHISTAMINES 07/08/2003 5 - Intolerance Comments: (benadryl) Make her hyper METOCLOPRAMIDE 06/03/2003 5 - Intolerance Comments: reglan NITROFURAN ANALOGUES 06/03/2003 5 - Intolerance Comments: macrobid PHENOTHIAZINES 06/03/2003 5 - Intolerance Comments: compazine Date Reviewed: 12/08/2023 Reviewed by: Lisa Shelby MD - Fully Assessed Reason for Visit: insulin pump start training [Other] Prescriptions as of 03/25/2024 - aspirin, enteric coated (ASPIRIN, ENTERIC COATED) 81 mg EC tablet Take 1 tablet by mouth once daily. - Blood-Glucose Meter,Continuous (DEXCOM G7 TRAP SETTER) misc 1 Each. - ADULT MUTIVITAMIN W/ EXTRA D GUMMY Take by mouth. - Blood-Glucose Meter,Continuous (DEXCOM G6 TRAP SETTER) misc Use as directed to monitor blood glucose 4-6 times per day. ICD-10: E10.65 ICD-10: E11.65 (insulin dependent) - Blood-Glucose Meter,Continuous (DEXCOM G7 TRAP SETTER) misc Use as directed to monitor blood glucose 4-6 times per day. ICD-10: E10.65 ICD-10: E11.65 (insulin dependent) - Infusion Set for Insulin Pump (JUSTUS INFUSION SET) iset Change it 3 days - Insulin Pump Syringe (PARADIGM RESERVOIR) 1.8 mL misc Use as needed - insulin lispro (HUMALOG U-100 INSULIN) 100 unit/mL injection Inject SQ as directed in insulin pump up to 100 units daily - glucagon 3 mg/actuation nasal spray (BAQSIMI) Use 1 Chandler in the nose as needed for low blood sugar. May repeat after 15 minutes using a new device if there is no response. - Blood-Glucose Sensor ([employer]oom G6 SENSOR) jeff Use as directed to monitor blood glucose 4-6 times per day. ICD-10: E10.65 ICD-10: E11.65 (insulin dependent) - aspirin (ASPIR-81 ORAL) Take by mouth. - atorvastatin (LIPITOR) 40 mg tablet Take 40 mg by mouth once daily. - scopolamine (TRANSDERM-SCOP) patch 1.5 mg/72 hr (delivers 1 mg over 3 days) Apply 1 disc behind the ear at least 4 hours prior to exposure and every 3 days as needed. - ondansetron HCl (ZOFRAN ORAL) Take by mouth. - venlafaxine ER (EFFEXOR XR) 150 mg 24 hr capsule TAKE 1 CAPSULE DAILY IN THE MORNING - venlafaxine (EFFEXOR) 75 mg tablet TAKE 1 TABLET DAILY AT BEDTIME - medroxyPROGESTERone (PROVERA, CYCRIN) 2.5 mg tablet Take 2.5 mg by mouth once daily. - Estradiol (ESTRACE) 0.5 mg tablet Take 0.5 mg by mouth once daily. - fentaNYL (DURAGESIC) 50 mcg/hr - meclizine (ANTIVERT) 25 mg tab Take 25 mg by mouth twice daily as needed. - insulin lispro (HUMALOG) 100 unit/mL injection Inject SQ as directed in insulin pump up to 100 units daily - Multivitamin capsule Take 1 capsule by mouth once daily. - gabapentin (NEURONTIN) 800 mg tablet Take 1 tablet by mouth four times daily. - glucagon, human recombinant, (GLUCAGON EMERGENCY) 1 mg injection 1 mg as directed. INJECT FOR INSULIN SHOCK - losartan (COZAAR) 50 mg ORAL tablet Take 1 tablet by mouth once daily. - Catheter 14-16 Fr- Misc Misc use as directed four times a day Meds Comments as of 12/28/2012: ID # thru optum [id number] Problem List As Of Date 03/22/2024 Noted Resolved ALLERGIC RHINITIS NOS [J30.9] 11/09/2001 Uncontrolled type 1 diabetes mellitus with opht*11/09/2001 JOINT PAIN-SHLDER [M25.519] 11/09/2001 ADV EFFECT MED/BIOL SUB NOS [995.2] 03/04/2002 URINARY OBSTRUCTION NOS [599.6] 06/20/2003 ASA CLASS II [1001] 06/20/2003 ABDOMINAL PAIN OTHER SPEC SITE [R10.9] 04/03/2007 URETERIC OBSTRUCTION NEC [N13.5] 04/09/2007 HEARING LOSS NOS [H91.90] (more content not included)... Normal [facility] CNPNon 03-12-2024 CNPN Telephone (ENDOMN) ----- JAEL BENSON ([id number]) 1965 F Date Time Provider Department 03/12/24 ROJAS JACKSON During your visit today, we recorded the following information about you: Shi Pendleton MA 03/12/2024 1:45 PM Signed [facility] calling to request verbal RX for the intro kit for Omni pod 5 and the pods. They state have sent several faxes but they are not transmitting to us. Please call [facility] at [phone] Allergies As of Date: 03/12/2024 Noted Allergy Reaction LEVOFLOXACIN 04/30/2021 14 - Other: See Comments Comments: insomnia ANTIHISTAMINES 07/08/2003 5 - Intolerance Comments: (benadryl) Make her hyper METOCLOPRAMIDE 06/03/2003 5 - Intolerance Comments: reglan NITROFURAN ANALOGUES 06/03/2003 5 - Intolerance Comments: macrobid PHENOTHIAZINES 06/03/2003 5 - Intolerance Comments: compazine Date Reviewed: 12/08/2023 Reviewed by: Lisa Shelby MD - Fully Assessed Prescriptions as of 03/12/2024 - aspirin, enteric coated (ASPIRIN, ENTERIC COATED) 81 mg EC tablet Take 1 tablet by mouth once daily. - Blood-Glucose Meter,Continuous (DEXCOM G7 TRAP SETTER) misc 1 Each. - ADULT MUTIVITAMIN W/ EXTRA D GUMMY Take by mouth. - Blood-Glucose Meter,Continuous (DEXCOM G6 TRAP SETTER) misc Use as directed to monitor blood glucose 4-6 times per day. ICD-10: E10.65 ICD-10: E11.65 (insulin dependent) - Blood-Glucose Meter,Continuous (DEXCOM G7 TRAP SETTER) misc Use as directed to monitor blood glucose 4-6 times per day. ICD-10: E10.65 ICD-10: E11.65 (insulin dependent) - Infusion Set for Insulin Pump (JUSTUS INFUSION SET) iset Change it 3 days - Insulin Pump Syringe (PARADIGM RESERVOIR) 1.8 mL misc Use as needed - insulin lispro (HUMALOG U-100 INSULIN) 100 unit/mL injection Inject SQ as directed in insulin pump up to 100 units daily - glucagon 3 mg/actuation nasal spray (BAQSIMI) Use 1 Chandler in the nose as needed for low blood sugar. May repeat after 15 minutes using a new device if there is no response. - Blood-Glucose Sensor (DEXCOM G6 SENSOR) jeff Use as directed to monitor blood glucose 4-6 times per day. ICD-10: E10.65 ICD-10: E11.65 (insulin dependent) - aspirin (ASPIR-81 ORAL) Take by mouth. - atorvastatin (LIPITOR) 40 mg tablet Take 40 mg by mouth once daily. - scopolamine (TRANSDERM-SCOP) patch 1.5 mg/72 hr (delivers 1 mg over 3 days) Apply 1 disc behind the ear at least 4 hours prior to exposure and every 3 days as needed. - ondansetron HCl (ZOFRAN ORAL) Take by mouth. - venlafaxine ER (EFFEXOR XR) 150 mg 24 hr capsule TAKE 1 CAPSULE DAILY IN THE MORNING - venlafaxine (EFFEXOR) 75 mg tablet TAKE 1 TABLET DAILY AT BEDTIME - medroxyPROGESTERone (PROVERA, CYCRIN) 2.5 mg tablet Take 2.5 mg by mouth once daily. - Estradiol (ESTRACE) 0.5 mg tablet Take 0.5 mg by mouth once daily. - fentaNYL (DURAGESIC) 50 mcg/hr - meclizine (ANTIVERT) 25 mg tab Take 25 mg by mouth twice daily as needed. - insulin lispro (HUMALOG) 100 unit/mL injection Inject SQ as directed in insulin pump up to 100 units daily - Multivitamin capsule Take 1 capsule by mouth once daily. - gabapentin (NEURONTIN) 800 mg tablet Take 1 tablet by mouth four times daily. - glucagon, human recombinant, (GLUCAGON EMERGENCY) 1 mg injection 1 mg as directed. INJECT FOR INSULIN SHOCK - losartan (COZAAR) 50 mg ORAL tablet Take 1 tablet by mouth once daily. - Catheter 14-16 Fr- Misc Misc use as directed four times a day Meds Comments as of 12/28/2012: ID # thru optum [id number] Problem List As Of Date 03/12/2024 Noted Resolved ALLERGIC RHINITIS NOS [J30.9] 11/09/2001 Uncontrolled type 1 diabetes mellitus with opht*11/09/2001 JOINT PAIN-SHLDER [M25.519] 11/09/2001 ADV EFFECT MED/BIOL SUB NOS [995.2] 03/04/2002 URINARY OBSTRUCTION NOS [599.6] 06/20/2003 ASA CLASS II [1001] 06/20/2003 ABDOMINAL PAIN OTHER SPEC SITE [R10.9] 04/03/2007 URETERIC OBSTRUCTION NEC [N13.5] 04/09/2007 HEARING LOSS NOS [H91.90] 07/07/2008 ESOPHAGEAL REFLUX [K21.9] 11/10/2008 TRIGGER FINGER [M65.30] 11/25/2008 DEPRESSIVE DISORDER NEC [F32.89] 01/01/2009 Kidney Disease [N28.9] 04/09/2010 Type 1 diabetes mellitus with neurological gabriela*10/18/2011 Fissure in skin of foot [R23.4] 10/18/2011 Polyneuropathy in diabetes(357.2) [E11.42] Carpal tunnel syndrome on both sides [G56.03] 10/30/2012 Carpal tunnel syndrome, left [G56.02] 04/04/2013 Carpal tunnel syndrome, right [G56.01] 04/04/2013 Hyperlipidemia [E78.5] CKD (chronic kidney disease) (HCC) [N18.9] 01/30/2014 HTN (hypertension) [I10] 11/10/2022 Diabetic autonomic neuropathy (HCC) [E11.43] 11/12/2022 Controlled type 1 diabetes mellitus with both e*12/08/2023 Encounter Status:Closed by SHI PENDLETON on 03/12/[address] [facility] Bacteria identifiedon 2023 Bacteria identified Cx Nom (U) Test: Urine Culture Specimen Source: Clean Catch/Voided Specimen Type: Urine Specimen Date: 02/16/2024 1606 Result Date: 02/18/2024 0811 Result Status: Final result Abnormal: No Resulting Lab: [facility] [address] [place] [address] CULTURE No significant growth Normal [facility] Comment on above: Performed By: #### 6 30-4 #### DAVIN Joshi ([id number]) [facility] ([facility]) [address] [place] [address] ALBUMIN/CREATININE RATIO, UR INEon 12-08-2023 Albumin DL <= 20 mg/L (U) [Mass/Vol] 12.2 mg/L [facility] Albumin/Creatinine (U) [Mass ratio] 18 mg/g <30 mg/g [facility] Creatinine (U) [Mass/Vol] 69.2 mg/dL 20.0 - 300.0 mg/dL [facility] Albumin DL <= 20 mg/L (U) [Mass/Vol] 12.2 mg/L Normal [facility] Comment on above: Order Comment: Speci men Type: URINE SPECIMENOrdering Facility: [facility] Address: [address] [place] [address] Performed By: #### U ACR ####[facility] LABCLIA [id number] [place] [address] [place] Albumin/Creatinine (U) [Mass ratio] 18 mg/g Normal <[address] [facility] Comment on above: Order Comment: Speci men Type: URINE SPECIMENOrdering Facility: [facility] Address: [address] [place] [address] Result Comment: Adul t Male and Female Nephrotic Criteria: <30 mg/g is considered normal to mildly increased 30-300 mg/g is considered moderately increased >300 mg/g is considered severely increased KDIGO. (2013). KDIGO 2012 Clinical Practice Guideline for the Evaluation and Management of Chronic Kidney Disease. Official Journal of the International Society of Nephrology, 3(1), 1-150. Performed By: #### U ACR ####[facility] LABCLIA [id number] [place] [address] [place] Creatinine (U) [Mass/Vol] 69.2 mg/dL Normal 20.0-300.[address] [facility] Comment on above: Order Comment: Speci men Type: URINE SPECIMENOrdering Facility: [facility] Address: [address] [place] [address] Performed By: #### U ACR ####[facility] LABCLIA [id number] [address] [place] CNCOon 12-08-2023 CNCO Letter Text Normal [facility] CNOVon 12-08-2023 CNOV Office Visit (ENDOMN ) ----- JAEL BENSON ([id number]) 1965 F Date Time Provider Department 12/08/23 10:00 AM ROJAS JACKSON During your visit today, we recorded the following information about you: Pulse Blood pressure Weight Height 85/minute 146/64 82.1 kg 1.59 m Kori Sweeney 12/08/2023 9:52 AM Signed Thank you for choosing the [facility] Department of Endocrinology, Diabetes and Metabolism. Did you know that you need to call 48 hours in advance of your scheduled visit, if you are unable to make your appointment? The Endocrinology and Metabolism [place] thanks you for your commitment, because patients not showing to their appointment results in a lost opportunity for patients to receive [facility] at the [facility]. To Cancel an appointment, please choose one of the following: - Call the Appointment Call Center at [phone] - From [email or web address], Go to Appointments - Cancel Appts If cancelling, consider your need to reschedule to prevent further delays in your care. To Schedule an appointment, please choose one of the following: - Call the Appointment Call Center at [phone] - From [email or web address], Go to Appointments - Request an Appt Lisa Shelby MD 12/25/2023 4:47 PM [facility] INITIAL DIABETES ASSESSMENT Consultation requested by For an opinion regarding Diabetes. My final recommendations will be communicated back to the requesting physician by way of shared Medical record or letter to requesting physician via US mail. Referring provider: Dr. Addison Phone: N/A Fax: HISTORY OF PRESENT ILLNESS: Jael Benson is a 58 year old female with PMH of type 1 diabetes who presents today for evaluation and establishing care regarding diabetes. Patient reports her glucose control has been very good since she has been on tandom insulin pump for delivery. She has hypoglycemia unawareness and has dexcom, which alarms and she eats and BG improves. When goes for a walk, she turns the pump off. Has tried exercise mode but it drops sugar regardless. Date of Diagnosis: at age 13 Symptoms of Hyperglycemia : Polydipsia Symptoms of Hypoglycemia: Loss of early awareness ----- Current DM Regimen: Tandom t slim for the past 3 years Pump Settings: -- Pump Type: Tandom t slim -- Manual Boluses: Yes -- Changes the site: every 3 days. -- Av B -- Avg daily carbs: - -- Avg Basal: 3.79 -- Avg Bolus: 16.5 Basal rate: Time U/Hr 0.16 Carb ratio: 1:10 Sensitivity Factor: 1:75 Blood glucose target: 110 Active insulin time: 5 ----- Physical Activity: Regular Diet: Counts Carbs Frequency of skipping meals is If on prandial insulin, is prandial insulin is skipped when a meal is skipped: Frequency of skipping diabetes meds: SMBG Type of Monitor: Dexcom Frequency of Monitoring: Not applicable BG Values: Not applicable Range of glucose levels is between -to - mg/dl ----- Last Eye Exam: March Last Foot Exam: due for Previous Diabetes Education: not applicable. Computed FIB-4 Calculation unavailable. One or more values for this score either were not found within the given timeframe or did not fit some other criterion. 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. Normal [facility] Laboratory - Drug toxicology on 09-25-2023 fentaNYL (U) [Mass/Vol] 35.1 ng/mL [employer] Comment on above: INTERPRETIVE INFORMA TION: Fentanyl and Metabolite, Urine Methodology: Quantitative Liquid Chromatography-Tandem Mass Spectrometry Positive cutoff: 1.0 ng/mL For medical purposes only; not valid for forensic use. The absence of expected drug(s) and/or drug metabolite(s) may indicate non-compliance, inappropriate timing of specimen collection relative to drug administration, poor drug absorption, diluted/adulterated urine, or limitations of testing. The concentration value must be greater than or equal to the cutoff to be reported as positive. Interpretive questions should be directed to the laboratory. This test was developed and its performance characteristics determined by [facility]. It has not been cleared or approved by the US Food and Drug Administration. This test was performed in a CLIA certified laboratory and is intended for clinical purposes. Norfentanyl (U) [Mass/Vol] 342.2 ng/mL [employer] Comment on above: Performed By: [employer] [address] [address] Letterer: Eliceo Nogueira MD, PhD CLIA Number: [id number] No Panel Informationon 09-25 [facility] Comprehensive metabolic 1998 panelon 09-21-2023 Albumin [Mass/Vol] 4.3 g/dL 3.5 - 5.0 g/dL [facility] ALP [Catalytic activity/Vol] 57 U/L 38 - 126 U/L [facility] ALT [Catalytic activity/Vol] 25 U/L 0 - 34 U/L [facility] Anion gap [Moles/Vol] 9 mmol/L 3 - 13 mmol/L [facility] AST [Catalytic activity/Vol] 50 U/L High 15 - 46 U/L [facility] Bilirubin [Mass/Vol] 0.5 mg/dL 0.2 - 1 .3 mg/dL [facility] Calcium [Mass/Vol] 9.7 mg/dL 8.4 - 10. 4 mg/dL [facility] Chloride [Moles/Vol] 97 mmol/L Low 98 - 10 7 mmol/L [facility] CO2 [Moles/Vol] 28 mmol/L 22 - 30 mmol/L [facility] Creatinine [Mass/Vol] 1.21 mg/dL High 0.52 - 1.04 mg/dL [facility] GFR/1.73 sq M.predicted MDRD (S/P/Bld) [Vol rate/Area] 52.4 mL/min/{1.73_m2} Low - PINF [facility] Comment on above: Calculation based on the Chronic Kidney Disease Epidemiology Collaboration (CKD-EPI) equation refit without adjustment for race Glucose [Mass/Vol] 195 mg/dL High 70 - 100 mg/dL [facility] Interpretation and review of laboratory results Abnormal [facility] Potassium [Moles/Vol] 4.0 mmol/L 3.5 - 5.1 mmol/L [facility] Protein [Mass/Vol] 7.6 g/dL 6.3 - 8.2 g/dL [facility] Sodium [Moles/Vol] 134 mmol/L Low 135 - 145 mmol/L [facility] Urea nitrogen [Mass/Vol] 31 mg/dL High 7 - 17 mg/dL [facility] No Panel InformationOrdered By: Aleja Esparza on 09-21-2023 PAIN MANAGEMENT PANEL, UR Negative [facility] REVIEWED BY Tawny Esparza [facility] The following were t ested for in the sample submitted at the listed thresholds: Amphetamines(1000ng/mL) Methamphetamine (1000 ng/mL) Cocaine and metabolites(300ng/mL) Codeine,Morphine,Hydrocod one,Hydromorphone(300 ng/mL each) Oxycodone(100 ng/mL) THC metabolites(50 ng/mL) The sample was checked for dilution and substitution. NOTE: These results are for medical treatment only. Analysis performed using non-forensic procedures. This test has not been cleared by the US Food and Drug Administration (FDA). The FDA has determined that such clearance or approval is not necessary. The performance chararcteristics have been determined by the clinical laboratories of [facility]. [facility] [employer] POCT UA Automated manually r esultedon 06-28-2023 Appearance (U) Clear Clear [facility] Work Phone: [phone] Glucose Test strip (U) [Mass/Vol] Negative NEGATIVE mg/dl [facility] Work Phone: [phone] Hemoglobin Ql (U) TRACE-Intact Abnormal NEGATIVE Unive [facility] Work Phone: [phone] Interpretation and review of laboratory results Abnormal [facility] Work Phone: [phone] Leukocyte esterase Test strip Ql (U) Negative NEGATIVE [facility] Work Phone: [phone] Nitrite Ql (U) Negative NEGATIVE [facility] Work Phone: [phone] pH (U) 5.0 [pH] No Reference Range Established [facility] Work Phone: [phone] POC Bilirubin, Urine Negative NEGATIVE [facility] Work Phone: [phone] POC Color, Urine Yellow Straw, Yellow, Light-Yellow [facility] Work Phone: [phone] POC Ketones, Urine Negative NEGATIVE mg/dl [facility] Work Phone: [phone] POC Protein, Urine Negative NEGATIVE, 30 (1+) mg/dl [facility] Work Phone: [phone] POC Specific [place], Urine 1.025 1.005 - 1.035 [facility] Work Phone: POC Urobilinogen, Urine 0.2 0.2, 1.0 EU/DL [facility] Work Phone: [facility] Work Phone: Office Visit (Urology)on Follow-up visit Diagnoses/Problems Assessed Frequent UTI (599.0) (N39.0) Asthma (493.90) (J45.909) Neuropathy (355.9) (G62.9) Renal disease (593.9) (N28.9) Orders Frequent UTI Follow-up visit in 3 months Outpatient Follow-up ESTABLISHED PT Status: Hold For - Scheduling Requested for: [id number] Ordered Stat;For: Frequent UTI; Ordered By: Gavin Otto II Performed: Due: 11Jul2023 Chief Complaint Cysto Active Problems Problems Frequent UTI (599.0) (N39.0) Allergies Medication Benadryl CAPS Recorded By: Nayeli Calix; 04/12/2023 3:21:27 PM Compazine Recorded By: Nayeli Calix; 04/12/2023 3:21:27 PM Reglan Recorded By: Nayeli Calix; 04/12/2023 3:21:27 PM Current Meds Medication NameInstruction Ciprofloxacin 500 MG TABS Gabapentin 800 MG Oral Tablet Losartan Potassium 50 MG Oral Tablet medroxyPROGESTERone Acetate 2.5 MG Oral Tablet Nitrofurantoin Macrocrystal 50 MG Oral CapsuleTAKE ONE TABLET EVERY Monday AND MONDAY. Venlafaxine HCl - 100 MG Oral Tablet Venlafaxine HCl - 75 MG Oral Tablet Zofran 4 MG TABS Vitals Vital Signs Recorded: [id number] 03:22PM [id number] lb 2 oz Tobacco Useb) No PHQ-2 Patient Declined/Screening not indicatedYes Falls Screening (Age 18+)a) No falls within the last year Procedure The patient was prepped using a Betadine solution. Lidocaine jelly was instilled into the urethra. The flexible cystoscope was sterilely inserted into the urethra and formal cystoscopy performed in a systematic fashion. . For detailed findings of the procedure, please see Dr. Otto's remarks below patient is on Macrodantin 50mg every Monday, Monday and Monday NO MASS. NO STONE. MILD TRABECULATION CONTINUE PROPHYLAXIS F/U 3 MONTHS Signatures Electronically signed by : Gavin Otto II, MD; Apr 12 2023 4:16PM EST (Author) Normal [facility] Tobacco Screening.on 023 Fall risk assessment a) No falls within the last year EF-Hlrwjmx-T [place] Work Phone: Tobacco use status [facility] b) No LT-Mkvtabf-D [place] Work Phone: [phone] Tobacco Screening. Yes MP-Uro logy-A [place] Work Phone: Radiologyon 04-11-2023 US Kidney - bilateral Please click on the link to view the study images Normal QC-Ixshsgs-N [place] Work Phone: US Kidney - bilateral Normal [facility] DO Work Phone: ED NOTEon 04-06-2023 ED NOTE HNO ID: [id number] Author: Vita Ang, AUDRA Service: Emergency Medicine Author Type: Registered Nurse Type: ED Notes Filed: 04/06/2023 7:41 PM Note Text: Patient informed: the name of medication, why we are giving it, possible side effects, what they may expect to feel, and was offered a chance to ask questions, prior to the administration of bacitracin and keflex Normal [facility] ED NOTE HNO ID: [id number] Author: Vannesa Bartlett, AUDRA Service: Nursing Author Type: Registered Nurse Type: ED Notes Filed: 04/06/2023 7:12 PM Note Text: Pt reports bug bite 2 weeks ago and pt and noticed wound has been getting red and L ankle is swelling. Normal [facility] ED PROV NOTEon 04-06-2023 ED PROV NOTE HNO ID: [id number] Author: Jordy Tyson MD Service: Emergency Medicine Author Type: Physician Type: ED Provider Notes Filed: 04/07/2023 1:57 AM Note Text: ED Provider Note Patient Name: Jael Benson : 1965 SERVICE DATE: 04/06/23 History Patient presents with: Wound Check Patient states she has a history of diabetes and recurrent skin ulcerations with infections. She states she has had a current skin ulceration on her left anterior lower leg for about a week that started after a mosquito bite. Today they noticed some swelling in the area and faint erythema so they present to the emergency department. There is been no fever or vomiting or systemic signs of illness. 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) PAST SURGICAL HISTORY Procedure Laterality Date , CLASSIC, ANTE/POST CA 02/27/88, 06/03/91 x2 COLPOSCOPY CERVIX UPPER/ADJACENT VAGINA 1999 LEEP LAPAROSCOPY DIAGNOSTIC for fertility NEUROPLASTY AND/TRANSPOS MEDIAN NRV CARPAL TUNNE 04-26-13 Carpal tunnel decomp, left PAST SURGICAL HISTORY OF 2002 Left ureter obstruction/stent scope PAST SURGICAL HISTORY OF 06-26-2001 Rt ankle fx repair with plates/screws PAST SURGICAL HISTORY OF right CTR PAST SURGICAL HISTORY OF 2007 left eye enucleation d/t pain FAMILY HISTORY Problem Relation Age of Onset Heart Father colon polyps other (spinal stenosis [Other]) Father Heart Sister Diabetes Son Anesthesia Problems No Family History Social History Tobacco Use Smoking status: Former Packs/day: 1.00 Years: 8.00 Total pack years: 8.00 Types: Cigarettes Quit date: 08/28/1986 Years since quittin.6 Smokeless tobacco: Never Vaping Use Vaping Use: Never used Substance and Sexual Activity Alcohol use: No Drug use: No Sexual activity: Not on file ALLERGIES Allergen Reactions Levofloxacin Other: See Comments insomnia Antihistamines Intolerance (benadryl) Make her hyper Metoclopramide Intolerance reglan Nitrofuran Analogues Intolerance macrobid Phenothiazines Intolerance compazine Review of Systems Skin: Positive for rash. All other systems reviewed and are negative. Physical Exam Vitals [04/06/236] BP Pulse Temp Temp src Resp SpO2 Weight Height 134/63 (!) 93 36.1 ?C (97 ?F) -- 16 100 % 83.9 kg (185 lb) -- Physical Exam Vitals and nursing note reviewed. Constitutional: General: She is not in acute distress. Appearance: She is well-developed. She is not diaphoretic. HENT: Head: Normocephalic and atraumatic. Right Ear: External ear normal. Left Ear: External ear normal. Eyes: Extraocular Movements: Extraocular movements intact. Conjunctiva/sclera: Conjunctivae normal. Cardiovascular: Rate and Rhythm: Normal rate. Pulmonary: Effort: Pulmonary effort is normal. Abdominal: General: There is no distension. Musculoskeletal: General: Normal range of motion. Cervical back: Normal range of motion. Skin: Findings: No erythema. Neurological: Mental Status: She is alert and oriented to person, place, and time. Psychiatric: Behavior: Behavior normal. Diagnostic Testing ED Labs Ordered and Reviewed - No data to display Procedures ED Course / Clinical Impression Clinical Impressions as of 04/07/23 0154 Wound infection MDM / Disposition / Plan History and physical consistent with skin infection. Patient has no systemic symptoms. There is no evidence of abscess. She will be started on antibiotics. She will be referred to her primary doctor for follow-up or return to the emergency department if symptoms worsen. Differential Diagnoses - Necrotizing fasciitis is less likely for the following reason(s): HANDP not suggestive - Ischemic limb is less likely for the following reason(s): HANDP not suggestive - Osteomyelitis is less likely for the following reason(s): HANDP not suggestive Contributing Factors Chronic conditions affecting care: diabetes and hypertension Chronic conditions addressed by: Blood pressure monitored while in ED Disposition The patient was discharged. Counseled patient and family regarding suspected diagnosis. Prescriptions and Discharge Orders Discharge Orders cephALEXin (KEFLEX) 500 mg capsule 4 TIMES DAILY, Status: Discontinued Route: ORAL Dose: 500 mg cephALEXin (KEFLEX) 500 mg capsule 4 TIMES DAILY Route: ORAL Dose: 500 mg SIGNATURE: MD MARBELLA Haro SCOTT 04/07/23 0157 Normal [facility] IO UA (automated w/o microsc opy)on 03-29-2023 Protein (U) [Mass/Vol] Negative CQ-Sgqbpcv-Y [facility] Work Phone: IO UA (automated w/o microscopy) Negative KW-Kvifdrv-C [facility] Work Phone: IO UA (automated w/o microscopy) Normal (0.2-1.0 mg/dl) [facility] Work Phone: IO UA (automated w/o microscopy) 5.5 1 DX-Ixwqker-M [place] Work Phone: IO UA (automated w/o microscopy) 1.015 1 GP-Vrgfsni-M [place] Work Phone: IO UA (automated w/o microscopy) Clear [facility] Work Phone: IO UA (automated w/o microscopy) Yellow VX-Rdcpmhr-I [place] Work Phone: [phone] Office Visit (Urology)on Follow-up visit Diagnoses/Problems Assessed Frequent UTI (599.0) (N39.0) Orders Frequent UTI IO UA (automated w/o microscopy); Status:Resulted - Requires Verification,Retrospectiv e Authorization; Done: 29Mar2023 03:41PM Performed:In Office; Due:27Jun2023; Last Updated By:Veronique Sosa; 03/29/2023 3:43:05 PM;Ordered; For:Frequent UTI; Ordered By:Gavin Otto II; Patient Discussion/Summary Treatment options for LUTS reviewed Continue CIC Discussed timed voiding. Discussed fluid and caffeine intake Lifestyle change to help prevent UTIs discussed. Encouraged fluid intake. UA reviewed Urine Cx requested Start Macrodantin QMWF Discussed at home Acetic acid solutions Cysto scheduled F/u Cysto after U/S and will discuss irigations at that visit Chief Complaint NPV-EST CARE History of Present Illness. HX OF FREQUENT UTIS AND BLADDER INFECTIONS. SHE RECENTLYCOMPLETED ANTIBX. SHE HAS A NGB FROM [facility] AND HAS TO DO CIC. HAS OCCASIONAL FREQUENCY AND URGENCY IN THE MORNING. . DENIES HEMATURIA. NOCTURIA X 0. Current Meds Medication NameInstruction Ciprofloxacin 500 MG TABS Gabapentin 800 MG Oral Tablet Losartan Potassium 50 MG Oral Tablet medroxyPROGESTERone Acetate 2.5 MG Oral Tablet Venlafaxine HCl - 100 MG Oral Tablet Venlafaxine HCl - 75 MG Oral Tablet Zofran 4 MG TABS Vitals Vital Signs Recorded: 29Mar2023 03:28PM [id number] Xuidrmmfg12 Jxndyg385 lb Tobacco Useb) No Falls Screening (Age 18+)a) No falls within the last year Physical Exam A/O x 3 in No apparent distress Constitutional: General appearance normal Respiratory: Respiratory effort is normal Gastrointestinal:Abdomen is not tender Genitourinary: Kidneys: Not palpable Bilaterally Bladder: Not palpable or tender Results/Data IO UA (automated w/o microscopy)[id number] 03:41PMGavin Otto II Test NameResultFlagReference IO ColorYellow IO AppearanceClear IO Glucose - UrineNegative IO BilirubinNegative IO KetonesNegative IO Specific Gravity1.015 IO BloodNegative IO pH5.5 IO Protein, UrineNegative IO Urobilinogen Normal (0.2-1.0 mg/dl) IO Nitrite, UrineNegative IO LeukocytesNegative IO ColorYellow IO AppearanceClear IO Glucose - UrineNegative IO BilirubinNegative IO KetonesNegative IO Specific Gravity1.015 IO BloodNegative IO pH5.5 IO Protein, UrineNegative IO Urobilinogen Normal (0.2-1.0 mg/dl) IO Nitrite, UrineNegative IO LeukocytesNegative Signatures Electronically signed by : Gavin Otto II, MD; Mar 29 2023 3:49PM EST (Author) Normal [facility] Tobacco Screening.on 023 Fall risk assessment a) No falls within the last year [place]-Euxaqcf-[facility] [place] Work Phone: Tobacco use status [facility] b) No [place]-Gtspunk-U [place] Work Phone: Fentanyl & Metab, Ur Qnton 0 12-17-2022 fentaNYL (U) [Mass/Vol] 24.9 ng/mL [facility] Comment on above: INTERPRETIVE INFORMA TION: Fentanyl and Metabolite, Urine Methodology: Quantitative Liquid Chromatography-Tandem Mass Spectrometry Positive cutoff: 1.0 ng/mL For medical purposes only; not valid for forensic use. The absence of expected drug(s) and/or drug metabolite(s) may indicate non-compliance, inappropriate timing of specimen collection relative to drug administration, poor drug absorption, diluted/adulterated urine, or limitations of testing. The concentration value must be greater than or equal to the cutoff to be reported as positive. Interpretive questions should be directed to the laboratory. This test was developed and its performance characteristics determined by [facility]. It has not been cleared or approved by the US Food and Drug Administration. This test was performed in a CLIA certified laboratory and is intended for clinical purposes. Norfentanyl (U) [Mass/Vol] 370 ng/mL [facility] Comment on above: Performed By: SOHAM Joshi [address] [address] Letterer: Eliceo Nogueira MD, PhD [facility] No Panel InformationOrdered By: Gina Liao on 12-14-2022 PAIN MANAGEMENT PANEL, UR Negative [facility] REVIEWED BY Luz Liao [facility] The following were t ested for in the sample submitted at the listed thresholds: Amphetamines(1000ng/mL) Methamphetamine (1000 ng/mL) Cocaine and metabolites(300ng/mL) Codeine,Morphine,Hydrocod one,Hydromorphone(300 ng/mL each) Oxycodone(100 ng/mL) THC metabolites(50 ng/mL) The sample was checked for dilution and substitution. NOTE: These results are for medical treatment only. Analysis performed using non-forensic procedures. This test has not been cleared by the US Food and Drug Administration (FDA). The FDA has determined that such clearance or approval is not necessary. The performance chararcteristics have been determined by the clinical laboratories of [facility]. [facility] CNOVon 09-22-2022 CNOV Office Visit (PNHM) ----- JAEL BENSON ([id number]) 1965 F Date Time Provider Department 09/22/22 8:15 AM KATELYNN JAIME [facility] During your visit today, we recorded the following information about you: Katelynn Lewis, PhD 09/22/2022 1:10 PM Signed [facility] PAIN MANAGEMENT BEHAVIORAL MEDICINE EVALUATION REFERRING PHYSICIAN: Sharan Mendoza MD; Alban Batres PA-C ATTENDING PHYSICIAN: Katelynn Lewis, PHD Jael Benson PATIENT TYPE: PNC : 1965 DATE OF SERVICE: September 22, 2022 IDENTIFYING INFORMATION Jael Benson is a 57 year old female from [place], [place], who was referred for evaluation by Sharan Mendoza MD and Alban Batres PA-C, to determine if she would be an appropriate candidate for a spinal cord stimulator. She was accompanied to her appointment by her spouse, Jael, who joined us.. PRESENTING COMPLAINT She presents with type 1 diabetes mellitus with autonomic neuropathy, E10.43; radiculopathy, lumbar region, M54.16; weakness, R53.1; numbness and tingling both hands, R20.0, R20.2. Her pain is reported to be in both hands with the right bothering her more than the left; she understands this procedure will not be for her hands. Her pain is also in both legs and feet from the knees down. Her usual intensity is 5-6 on a 10 point scale, subsiding to 4, and escalating to 8. She states it is not constant, but comes and goes. She describes it as being like labor pains, but not as intense. It is exacerbated by exercise, and walking, noting it is particularly difficult to walk. She reports it to be worse at night, especially as she has been having charley horses at night. Nothing except medication provides relief. CIRCUMSTANCES OF ONSET She has had diabetes for 44 years, since she is 13 years old. She notes she was diagnosed on her 13th birthday. The neuropathy began at age 34. OTHER PHYSICAL CONDITIONS There are no active hospital problems to display for this patient. 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) PAST SURGICAL HISTORY Procedure Laterality Date , CLASSIC, ANTE/POST CA 02/27/88, 06/03/91 x2 COLPOSCOPY CERVIX UPPER/ADJACENT VAGINA 1999 LEEP LAPAROSCOPY DIAGNOSTIC 1980s for fertility NEUROPLASTY AND/TRANSPOS MEDIAN NRV CARPAL TUNNE 04-26-13 Carpal tunnel decomp, left PAST SURGICAL HISTORY OF 2002 Left ureter obstruction/stent scope PAST SURGICAL HISTORY OF 06-26-2001 Rt ankle fx repair with plates/screws PAST SURGICAL HISTORY OF right CTR PAST SURGICAL HISTORY OF 2007 left eye enucleation d/t pain RELEVANT MEDICAL HISTORY She had epidural steroid injections in her back between [address] [place] without significant relief. She has had physical therapy, but not aquatic therapy. She has a pool to use at home in the summer. She has not seen a psychologist nor psychiatrist as an adult; she did as a teen for depression. She reports the only treatment that has helped so far has been the fentanyl patch. It is currently at 62 mcg every 72 hours prescribed by her PCP. She had been getting it from pain management, Dr. Bo, but he stopped prescribing it. She has a pump for her diabetes. CURRENT MEDICATIONS Current Outpatient Medications Medication Sig Dispense Refill ondansetron HCl (ZOFRAN ORAL) Take by mouth. ciprofloxacin HCl (CIPRO ORAL) Take by mouth. aspirin-calcium carbonate 81 mg-300 mg calcium(777 mg) tab Take 81 mg by mouth. venlafaxine ER (EFFEXOR XR) 150 mg 24 hr capsule TAKE 1 CAPSULE DAILY IN THE MORNING venlafaxine (EFFEXOR) 75 mg tablet TAKE 1 TABLET DAILY AT BEDTIME temazepam (RESTORIL) 15 mg cap Take by mouth at bedtime as needed. 1-2 tablets in the pm medroxyPROGESTERone (PROVERA, CYCRIN) 2.5 mg tablet Take 2.5 mg by mouth once daily. Estradiol (ESTRACE) 0.5 mg tablet Take 0.5 mg by mouth once daily. fentaNYL (DURAGESIC) 50 mcg/hr meclizine (ANTIVERT) 25 mg tab Take 25 mg by mouth twice daily as needed. insulin lispro (HUMALOG) 100 unit/mL injection Inject SQ as directed in insulin pump up to 100 units daily 9 Vial 3 insulin lispro (HUMALOG) 100 unit/mL injection Inject SQ as directed in insulin pump up to 100 units daily 9 Vial 3 scopolamine 1.5 mg Apply as directed. use every 72 hours as directed 3 Patch 0 Multivitamin capsule Take 1 capsule by mouth once daily. gabapentin (NEURONTIN) 800 mg tablet Take 1 tablet by mouth four times anny (more content not included)... Normal [facility] Endocrinology Visit Reporton 09-15-[address] [facility] [address] [place] [address] OFFICE VISIT Date of Service: 09/15/22 MR#: [id number] Acct: [id number] Name: JAEL BENSON Rep #: [id number] : 1965 Provider: KULWINDER hernandez Age/Sex: 57/F [place] [facility] [place]: Signed Intake Vital Signs 09/15/22 13:52 Height 5 ft 3 in Weight: 177 lb 4 oz BMI 31.4 BP 116/58 L Blood Pressure Location Lt brachial Position Sitting Respiration 18 Pulse 85 Pulse Source Monitor Temp 95.5 F L Temp Source Temporal Pulse Oximetry (%) 95 Oxygen Delivery Method room air Intake Visit Reasons: 3 M FU Chief Complaint: f/u diabetes Mechanic Helper Required: No Accompanied by: Is patient in pain?: No Allergies diphenhydramine HCl [From Benadryl] Allergy (Verified 09/15/22 13:54) Other Iodinated Contrast Media [DYEE] Allergy (Verified 09/15/22 13:54) Vomiting metoclopramide HCl [From Reglan] Allergy (Verified 09/15/22 13:54) Other prochlorperazine edisylate [From Compazine] Allergy (Verified 09/15/22 13:54) Other prochlorperazine maleate [From Compazine] Allergy (Verified 09/15/22 13:54) Other levofloxacin [From Levaquin] Adverse Reaction (Intermediate, Verified 09/15/22 13:54) anxious [facility] Medical History Allergic rhinitis Arthritis Asthma Asthma Carpal tunnel syndrome Chronic pain Chronic sinusitis Depression Diabetes Diabetes DM type 1 (diabetes mellitus, type 1) DM type 1 causing renal disease Essential hypertension GERD (gastroesophageal reflux disease) Glaucoma Hypoglycemia IBS (irritable bowel syndrome) Kidney disease Kidney disease Legal blindness Neuropathy Non-smoker Nonobstructive atherosclerosis of coronary artery Obesity Rib fractures Type 1 diabetes mellitus without complications UTI (urinary tract infection) Vision loss of left eye Vision problems Surgical History History of left heart catheterization (10/29/21) Family History Other Asthma Breast cancer Heart disease Social History Smoking Status: Never smoker alcohol intake: never substance use type: does not use what type of physical activity do you participate in: other details: occassionally HPI HPI Chief Complaint: f/u diabetes Details: JAEL BENSON, is a 57 F who presents to the office today for evaluation and management of diabetes. A1C today is 6.8%, improved from 05/19/22 at 7.3%. She has lost an additional 7 lbs. Currently using T slim insulin pump with Dexcom CGM- she is pleased with the system. Pump downlaoded and reviewed- She has post meal elevations followed by lows. She continues to have intermittent lows during sleeping hours, however, none that have required assistance from others. She is under reporting carbs, she continues to cheat carbs to address elevations in blood sugar. Labs are up to date. Denies any acute concerns. Exam Const General: cooperative, healthy appearing, comfortable and no acute distress Nutritional Appearance: obese Orientation: alert, awake and oriented x3 HENKY Head: normal to inspection Ears: hearing grossly normal bilaterally Nose: external nose normal Face and sinus: normal facial exam Eyes Alignment and Position: alignment abnormal right esotropia Sclera: sclerae normal Neck Neck: normal visual inspection Neck mass: No Carotids: normal carotid upstroke Chest Chest palpation inspection: normal inspection of the chest Resp Effort Inspection: normal respiratory effort, able to speak in complete sentences, symmetric chest movement, normal respiratory pattern, no audible wheezes and no cough Auscultation: Bilateral: Clear to Auscultation Cardio Rate: regular rate Rhythm: regular rhythm Heart Sounds: S1 normal and S2 normal Bruits: no carotid bruits GI Inspection: normal to inspection and obesity Musc Cervical Spine: normal cervical lordosis Thoracic/Lumbar Spine: thoracic and lumbar spine normal to inspection Skin General: no rashes or lesions noted Lesions: no lesions Rashes: no rashes Trauma: no lacerations or abrasions Wounds: no wounds Neuro General: patient alert, patient awake and patient oriented x3 Cognition: normal cognition Speech: speech normal Gait: normal gait Extrem General: normal to inspection, full ROM and no pedal edema Psych Appearance: grossly normal Mental Status: mental status grossly normal Mood: congruent mood Affect: normal affect Speech and Movement: speech and movement normal Attitude: cooperative Thought Process: normal Thou (more content not included)... Normal [facility] - Drug toxicology on 09-06-2022 fentaNYL (U) [Mass/Vol] 15.6 ng/mL [employer] Comment on above: INTERPRETIVE INFORMA TION: Fentanyl and Metabolite, Urine Methodology: Quantitative Liquid Chromatography-Tandem Mass Spectrometry Positive cutoff: 1.0 ng/mL For medical purposes only; not valid for forensic use. The absence of expected drug(s) and/or drug metabolite(s) may indicate non-compliance, inappropriate timing of specimen collection relative to drug administration, poor drug absorption, diluted/adulterated urine, or limitations of testing. The concentration value must be greater than or equal to the cutoff to be reported as positive. Interpretive questions should be directed to the laboratory. This test was developed and its performance characteristics determined by [employer]. It has not been cleared or approved by the US Food and Drug Administration. This test was performed in a CLIA certified laboratory and is intended for clinical purposes. Norfentanyl (U) [Mass/Vol] 298.4 ng/mL [employer] Comment on above: Performed By: [place] [address] Letterer: Eliceo Nogueira MD, PhD No Panel Informationon 09-06 [employer] No Panel InformationOrdered By: Talib Smiley on 09-02-2022 FENTANYL SCREEN, URINE Positive Negative [employer] Fentanyl has been screened for by Immunoassay at a 1 ng/ml threshold. POSITIVE results are not confirmed by a more specific alternative method unless requested. If confirmation is needed, request confirmation under separate order. NOTE: These results are for medical treatment only. Analysis performed using non-forensic procedures. [employer] Microalbumin/Creatinine rati o panel (U)on 09-01-2022 Albumin DL <= 20 mg/L (U) [Mass/Vol] 20.4 mg/L 0.0 - 29.9 mg/L [employer] Albumin/Creatinine DL <= 20 mg/L (U) [Mass ratio] 32.1 mg/g High 0.0 - 29.9 mg/g [facility] CREATININE, URINE 63.6 mg/dL No [facility] ealt Interpretation and review of laboratory results Abnormal [facility] Microalbumin concentrations <30 are considered normal, 30-300 are considered microalbuminuria (or risk of diabetic nephropathy), and >300 are considered clinical albuminuria (clinical nephropathy). Diabetes Care,27, Supplement 1, Q44-00, 2004 [facility] No Panel InformationOrdered By: Charline Villafana on 09-01-2022 PAIN MANAGEMENT PANEL, UR Negative [facility] REVIEWED BY Alex Villafana [facility] The following were t ested for in the sample submitted at the listed thresholds: Amphetamines(1000ng/mL) Methamphetamine (1000 ng/mL) Cocaine and metabolites(300ng/mL) Codeine,Morphine,Hydrocod one,Hydromorphone(300 ng/mL each) Oxycodone(100 ng/mL) THC metabolites(50 ng/mL) The sample was checked for dilution and substitution. NOTE: These results are for medical treatment only. Analysis performed using non-forensic procedures. This test has not been cleared by the US Food and Drug Administration (FDA). The FDA has determined that such clearance or approval is not necessary. The performance chararcteristics have been determined by the clinical laboratories of [facility]. [facility] Influenza virus A and B RNA and SARS-CoV-2 (COVID-19) N gene panel MEENA+probe (Resp)on 08-26-2022 FLUAV RNA MEENA+probe Ql (Unsp spec) Negative Negative for Influenza A by RT-PCR [facility] FLUBV RNA MEENA+probe Ql (Unsp spec) Negative Negative for Influenza B by RT-PCR [facility] SARS-CoV-2 (COVID-19) RNA MEENA+probe Ql (Resp) SARS-CoV-2 (Agent of COVID-19) Not Detected by RT-PCR or equivalent method. Not Detected [facility] EMG(NEURO/NI)on 07-01-[address] [facility] EMG(NEURO/NI)on 06-03-[address] [facility] MRI CERVICAL SPINE WO IVCONo n 05-25-2022 MRI CERVICAL SPINE WO IVCON * * *Final Report* * * DATE OF EXAM: May 25 2022 3:17PM LDM 0297 - MRI CERVICAL SPINE WO IVCON / PROCEDURE REASON: multiple diagnoses * * * * Physician Interpretation * * * * EXAMINATION: MRI CERVICAL SPINE WO IVCON CLINICAL HISTORY: Numbness and tingling in both hands cervical radiculopathy. TECHNIQUE: Routine cervical spine MR protocol without gadolinium. MQ: [id number]_3 COMPARISON: None. RESULT: Counting reference: Craniocervical junction. Anatomic Variants: None. Localizer images: No additional significant findings. Alignment: Alignment is anatomic. Craniocervical junction: Craniocervical junction is normal. Cord: The visualized cord is within normal limits of signal intensity and morphology. Bone marrow signal/fracture: No evidence of pathologic marrow infiltration. No evidence of prior fracture. Cervical soft tissues: The paraspinal soft tissues are within normal limits. C2-C3: Canal and foramina are patent. C3-C4: Canal and foramina are patent. C4-C5: Canal and foramina are patent. C5-C6: Canal and foramina are patent. C6-C7: Canal and foramina are patent. C7-T1: Canal and foramina are patent. IMPRESSION: No significant cervical disc herniation, spinal stenosis, or foraminal compromise. No abnormal cord signal. Anatomic Variant: None. Assume 7 cervical vertebrae with counting from the craniocervical junction. Bilingual Hr Generalist: [facility] Transcribe Date/Time: May 26 2022 11:59A Dictated by : ALFIE CARRANZA MD This examination was interpreted and the report reviewed and electronically signed by: ALFIE CARRANZA MD on May 26 2022 12:03PM EST [id number] Normal [facility] MRI LUMBAR SPINE WO IVCONon 05-25-2022 MRI LUMBAR SPINE WO IVCON * * *Final Report* * * DATE OF EXAM: May 25 2022 3:17PM LD 0303 - MRI LUMBAR SPINE WO IVCON / PROCEDURE REASON: Radiculopathy of lumbar region * * * * Physician Interpretation * * * * EXAMINATION: MRI LUMBAR SPINE WO IVCON CLINICAL HISTORY: Radiculopathy of lumbar region couldn't. Chronic mid and low back pain. TECHNIQUE: Routine lumbosacral spine MR protocol without gadolinium. MQ: [id number]_3 COMPARISON: CT abdomen pelvis 12/17/2021 RESULT: Counting reference: Lumbosacral junction. For the purposes of this report, L4-5 is considered the level of the iliac crest and assume there are 5 lumbar-type vertebrae. Anatomic variant: None. Localizer images: Stable appearance of a relatively atrophic left kidney, demonstrating multifocal cortical scarring and mild chronic intrarenal dilatation. Alignment: Alignment is anatomic. Bone marrow signal/fracture: No evidence of pathologic marrow infiltration. No evidence of prior fracture. Conus: The conus is within normal limits of signal intensity and morphology. Paraspinal soft tissues: Paraspinal soft tissues are within normal limits. Lower thoracic spine: Visualized lower thoracic canal and foramina are patent. T12-L1: Canal and foramina are patent. L1-L2: Canal and foramina are patent. L2-L3: Canal and foramina are patent L3-L4: Disc desiccation. Mild generalized disc bulging with mild facet arthrosis and ligamentum flavum hypertrophy. Mild canal stenosis and mild bilateral foraminal narrowing. L4-L5: Canal patent. Mild bilateral facet arthrosis. Mild bilateral foraminal narrowing. L5-S1: Canal and foramina patent. Sacrum and iliac wings: The visualized sacrum and iliac wings are within normal limits. IMPRESSION: Lower lumbar spondylosis as described. No high-grade spinal canal or foraminal stenoses. Mild spinal canal stenosis L3-L4. Mild bilateral foraminal stenoses L3-L4 and L4-L5. Details above. Anatomic Thoracic/Lumbar Variant: None. L4-5 is considered the level of the iliac crest and assume there are 5 lumbar-type vertebrae. Bilingual Hr Generalist: [facility] Transcribe Date/Time: May 26 2022 11:50A Dictated by : ALFIE CARRANZA MD This examination was interpreted and the report reviewed and electronically signed by: ALFIE CARRANZA MD on May 26 2022 11:55AM EST [id number] Normal [facility] MRI THORACIC SPINE WO IVCONo n 05-25-2022 MRI THORACIC SPINE WO IVCON * * *Final Report* * * DATE OF EXAM: May 25 2022 3:17PM LDM 0325 - MRI THORACIC SPINE WO IVCON / PROCEDURE REASON: Radiculopathy of lumbar region * * * * Physician Interpretation * * * * EXAMINATION: MRI THORACIC SPINE WO IVCON CLINICAL HISTORY: The patient presents with thoracic radiculopathy. Back pain. TECHNIQUE: Routine thoracic spine MR protocol. MQ: [id number] COMPARISON: CT abdomen pelvis 12/17/2021 RESULT: Counting reference: Lumbosacral junction. For the purposes of this report, anatomic variants: None. L4-5 is considered the level of the iliac crest and assume there are 5 lumbar-type vertebrae. Localizer images: Stable appearance of a relatively atrophic left kidney, demonstrating multifocal cortical scarring and mild chronic intrarenal dilatation. Alignment: Alignment is anatomic. Cord: The visualized cord is within normal limits of signal intensity and morphology. Bone marrow signal/fracture: No evidence of pathologic marrow infiltration. No evidence of prior fracture. Thoracic paraspinal soft tissues: The paraspinal soft tissues are within normal limits. Canal and foramina: The thoracic canal and foramina are patent. Mild multilevel mid and lower thoracic spondylosis, with disc desiccation and mild ventral/lateral endplate osteophyte formation at several mid and lower thoracic levels. IMPRESSION: Mild multilevel mid and lower thoracic spondylosis. No significant thoracic disc herniation, spinal stenosis, or foraminal compromise. No abnormal cord signal. Anatomic Thoracic/Lumbar Variant: None. L4-5 is considered the level of the iliac crest and assume there are 5 lumbar-type vertebrae. [facility]r [facility] Transcribe Date/Time: May 26 2022 11:36A Dictated by : ALFIE CARRANZA MD This examination was interpreted and the report reviewed and electronically signed by: ALFIE CARRANZA MD on May 26 2022 11:49AM EST [id number] Normal [facility] Endocrinology Visit Reporton 05-19-[address] [facility] [address] [place] [address] OFFICE VISIT Date of Service: 05/19/22 MR#: [id number] Acct: [id number] Name: JAEL BENSON Rep #: [id number] : 1965 Provider: KULWINDER hernandez Age/Sex: 56/F [place] [facility] [place] [facility] [place] Status: Signed Intake Vital Signs 05/19/22 14:18 Height 5 ft 3 in Weight: 184 lb 8 oz BMI 32.6 BP 99/68 Blood Pressure Location Lt brachial Position Sitting Respiration 18 Pulse 89 Pulse Source Monitor Temp 96.4 F L Temp Source Temporal Pulse Oximetry (%) 97 Oxygen Delivery Method room air Intake Visit Reasons: 3 M FU Chief Complaint: f/u diabetes Mechanic Helper Required: No Accompanied by: Is patient in pain?: Yes (legs ) Pain scale (1-10): 5 Allergies diphenhydramine HCl [From Benadryl] Allergy (Verified 05/19/22 14:31) Other Iodinated Contrast Media [DYEE] Allergy (Verified 05/19/22 14:31) Vomiting metoclopramide HCl [From Reglan] Allergy (Verified 05/19/22 14:31) Other prochlorperazine edisylate [From Compazine] Allergy (Verified 05/19/22 14:31) Other prochlorperazine maleate [From Compazine] Allergy (Verified 05/19/22 14:31) Other levofloxacin [From Levaquin] Adverse Reaction (Intermediate, Verified 05/19/22 14:31) anxious Nurse's Note: Pt's is very upset with us for not calling him back in a timely a manner about his monitor. Pt needs peer to peer for this now. PFSH Medical History Allergic rhinitis Arthritis Asthma Asthma Carpal tunnel syndrome Chronic pain Chronic sinusitis Depression Diabetes Diabetes DM type 1 (diabetes mellitus, type 1) DM type 1 causing renal disease Essential hypertension GERD (gastroesophageal reflux disease) Glaucoma Hypoglycemia IBS (irritable bowel syndrome) Kidney disease Kidney disease Legal blindness Neuropathy Non-smoker Nonobstructive atherosclerosis of coronary artery Obesity Rib fractures Type 1 diabetes mellitus without complications UTI (urinary tract infection) Vision loss of left eye Vision problems Surgical History History of left heart catheterization (10/29/21) Family History Other Asthma Breast cancer Heart disease Social History Smoking Status: Never smoker alcohol intake: never substance use type: does not use what type of physical activity do you participate in: other details: occassionally HPI HPI Chief Complaint: f/u diabetes Details: JAEL BENSON, is a 56 F who presents to the office today for evaluation and management of diabetes. A1C today is 7.3%, improved from 7.5% 02/03/22. She has lost 12 lb doing weight watchers. Pump and CGM downloaded and reviewed- she continues to have hypoglycemic events daily. She is entering fake carbs into pump to address elevations in blood sugars causing her to go low. She is having post meal lows. She has not had any hypoglycemic episodes since last appointment that has caused her to require assistance from others. Currently having difficulty obtaining supplies from [employer]. CGM supplies now require peer to peer evaluation. She has not established with nephrology as of yet, reports she was not contacted to schedule. Denies any acute concerns. Exam Const General: cooperative, healthy appearing, comfortable and no acute distress Nutritional Appearance: obese Orientation: alert, awake and oriented x3 HENMT Head: normal to inspection Ears: hearing grossly normal bilaterally Eyes General: appearance normal, both eyes and all related structures Alignment and Position: alignment normal Sclera: sclerae normal Neck Neck: normal visual inspection and full ROM Neck mass: No Chest Chest palpation inspection: normal inspection of the chest Resp Effort Inspection: normal respiratory effort, able to speak in complete sentences, symmetric chest movement, normal respiratory pattern, no audible wheezes and no cough GI Inspection: normal to inspection and obesity Musc Cervical Spine: normal cervical lordosis Thoracic/Lumbar Spine: thoracic and lumbar spine normal to inspection Skin General: no rashes or lesions noted Lesions: no lesions Rashes: no rashes Trauma: no lacerations or abrasions Neuro General: patient alert, patient awake and patient oriented x3 Cognition: normal cognition Speech: speech normal Gait: normal gait Extrem General: normal to inspection, full ROM and no pedal edema Psych Appearance: grossly normal Mental Status: mental status grossly normal Mood: congruent mood Affect: normal affect (more content not included)... Normal [facility] Fentanyl Screen, Urineon Fentanyl Screen, Urn Positive Normal Negative [facility] Comment on above: Result Comment: Fent anyl has been screened for by Immunoassay at a 1 ng/ml threshold. POSITIVE results are not confirmed by a more specific alternative method unless requested. If confirmation is needed, request confirmation under separate order. NOTE: These results are for medical treatment only. Analysis performed using non-forensic procedures. Performed By: #### F ENTU PAINU #### [facility] [address] [address] [place] Pain Management Panelon 02-26 Pain Management Panel, UR Negative [facility] Comment on above: Performed By: #### F ENTU PAINU #### [facility] [address] [place], [place] Reviewed By Karely Hinojosa [facility] Comment on above: Performed By: #### F ENTU PAINU #### [facility] [address] [place], [place] Pain Management Panelon 02-26 Comment See Below [facility] Comment on above: Result Comment: The following were tested for in the sample submitted at the listed thresholds: Amphetamines(1000ng/mL),Methamphetamine (1000 ng/mL),Cocaine and metabolites(300ng/mL),Codeine, Morphine,Hydrocodone,Hydromorphone(300 ng/mL each), Oxycodone(100 ng/mL), and THC metabolites(50 ng/mL). The sample was checked for dilution and substitution. NOTE: These results are for medical treatment only. Analysis performed using non-forensic procedures. Performed By: #### F ENTU PAINU #### [facility] [address] [place], [place] HPV by PCRon 08-26-2021 Specimen type Nom (Spec) ThinPrep [facility] Comment on above: Performed By: #### H PVG #### [facility] [address] [place], [place] HPV 16 Not detected Normal Not Detected [facility] Comment on above: Performed By: #### H PVG #### [facility] [address] [place], [place] HPV 18 Not detected Normal Not Detected [facility] Comment on above: Performed By: #### H PVG #### [facility] [address] [place], [place] Other High Risk HPV Not detected Normal Not Detected S [facility] Comment on above: Performed By: #### H PVG #### [facility] [address] [facility] [place] [address] WASH RACK OPERATOR Pathologyon 08-19-2021 WASH RACK OPERATOR Pathology [facility] [id number] DEPARTMENT OF PATHOLOGY AND [facility] LABORATORY MEDICINE [address] [place] [address] FINAL GYNECOLOGICAL CYTOLOGY REPORT NAME: JAEL BENSON : 1965 56 Y F BILLING NO.: [id number] LOCATION [id number] PROCEDURE 08/19/2021 : DATE: ANSON ADDISON DO RECEIVED DATE: 08/19/2021 N: REPORT DATE: 08/25/2021 COPIES TO: SPECIMEN ADEQUACY The specimen is satisfactory for examination. Endocervical/transformati on component present. Partially obscuring inflammation present. GENERAL CATEGORIZATION NEGATIVE FOR SQUAMOUS INTRAEPITHELIAL LESION OR MALIGNANCY. CONCHITA KB5 Screened by Additionally reviewed SARINA LEE, by CT(ASCP) RELATED LABORATORY RESULTS: Lab#: [id number] Date Ordered: 08/19/2021 14:00 Test Name Collected D&T Result HPV 16 08/19/2021 12:30 PENDING HPV 18 08/19/2021 12:30 PENDING Other High Risk HPV 08/19/2021 12:30 PENDING Note 08/19/2021 12:30 PENDING Specimen Type 08/19/2021 12:30 PENDING SPECIMEN: THIN PREP SCREEN BODY SITE: CERVICAL PROCEDURE(S): THIN PREP PAP TEST Number of slides: 1 RELEVANT HISTORY: Gynecologic cytology smear evaluation is subject to false positive and false negative interpretation as evidenced by published data. Your patient's Pap test results should thus be interpreted in conjunction with her clinical history and physical examination. Case reviewed at [facility] [address] [place] [address]. DEPARTMENT OF PATHOLOGY AND LABORATORY MEDICINE [place], [place] [email or web address] [facility] HPV by PCRon 08-19-2021 Note Comment [facility] Comment on above: Result Comment: The other high risk HPV results include HPV types: 31, 33, 35, 39, 45, 51, 52, 56, 58, 59, 66, and 68. Methodology: Kleber Yudelka HPV Assay Performed By: #### H PVG #### [place] [address] [address] [place], [place] Pain Management Panelon Pain Management Panel, UR Negative [facility] Comment on above: Result Comment: BRENDA ECTED RESULT...Previous above value was POSITIVE, verified on 07/30/21 at 09:15 by KARMA . Performed By: #### F ENTU PAINU #### [place] [address] [address] [place], [place] Reviewed By Jasiel Humphries [facility] Comment on above: Performed By: #### F ENTMercedes PAINU #### [place] [address] [address] [place], [place] Fentanyl Screen, Urineon Fentanyl Screen, Urn Positive Normal Negative [facility] Comment on above: Result Comment: Fent anyl has been screened for by Immunoassay at a 1 ng/ml threshold. POSITIVE results are not confirmed by a more specific alternative method unless requested. If confirmation is needed, request confirmation under separate order. NOTE: These results are for medical treatment only. Analysis performed using non-forensic procedures. Performed By: #### F ENTU PAINU #### [place] [address] [address] [place], [place] CR Shoulder 2+ Views Lefton 07-29-2021 CR Shoulder 2+ Views Left Patient Name: JAEL BENSON Diagnostic Radiology ACCESSION EXAM DATE/TIME PROCEDURE ORDERING PROVIDER [id number] 07/29/2021 15:03 EST CR Shoulder 2+ Views MD VAUGHN, CLAUDIO Palomino CPT code 00953 Reason For Exam (CR Shoulder 2+ Views Left) adhesive capsulitis of left shoulder Report Indication: Pain. Four views of the left shoulder show no evidence of an acute fracture or dislocation. There is no bone destruction, erosion or periosteal reaction. There is mild narrowing of the glenohumeral joint. The left acromioclavicular joint is intact. There are no radiopaque foreign bodies. IMPRESSION: 1. No evidence of an acute bone process. 2. Mild degenerative changes of the left glenohumeral joint. Report Dictated on Final Dictating Physician: DO MAYNARD ANTHONY Signed Date and Time: 07/29/2021 3:20 pm Signed by: DO MAYNARD ANTHONY Transcribed Date and Time: 07/29/2021 3:21 Normal [facility] Pain Management Panelon - Comment See Below Normal [facility] Comment on above: Result Comment: The following were tested for in the sample submitted at the listed thresholds: Amphetamines(1000ng/mL),Methamphetamine (1000 ng/mL),Cocaine and metabolites(300ng/mL),Codeine, Morphine,Hydrocodone,Hydromorphone(300 ng/mL each), Oxycodone(100 ng/mL), and THC metabolites(50 ng/mL). The sample was checked for dilution and substitution. NOTE: These results are for medical treatment only. Analysis performed using non-forensic procedures. Performed By: #### F ENTU, PAINU #### [address] [address] CULTURE URINEon 04-16-2021 CULTURE URINE 1 Organism Klebsiell a pneumoniae >100,000 CFU/ml ------ 1 Organism ------ Antibiotic Result Intrp ------ Ampicillin(YISEL) R Cefazolin(YISEL) <= 4 S Ceftriaxone(YISEL) <= 1 S Cefepime(YISEL) <= 1 S Aztreonam(YISEL) <= 1 S Amoxicillin/Clavulanic Acid(YISEL) <= 2 S Ampicillin/Sulbactam(YISEL) 8 S Pip/Tazobactam(YISEL) <= 4 S Meropenem(YISEL) <= 0.25 S Ciprofloxacin(YISEL) <= 0.25 S Trimeth/Sulfa(YISEL) <= 20 S Nitrofurantoin(YISEL) 64 I Gentamicin(YISEL) <= 1 S Amikacin(YISEL) <= 2 S Normal [facility] Comment on above: Performed By: #### C /UR #### [address] [address] [id number] Fentanyl, UrineOrdered By: Yimi Addison on 03-19-2021 Fentanyl Positive Negative NA [facility] Work Phone: Comment on above: Fentanyl has been sc reened for by Immunoassay at a 2ng/ml threshold. POSITIVE results are not confirmed by a more specific alternative method unless requested. If confirmation is needed, request confirmation under separate order. NOTE: These results are for medical treatment only. Analysis performed using non-forensic procedures. No Panel InformationOrdered By: Niecy Addison on 03-19-2021 Test Performed by [facility], [address] [place] [id number] [facility] Work Phone: [facility] Work Phone: Pain Management Drug ScreenO rdered By: Niecy Addison on 03-19-2021 Comment See Below [facility] Work Phone: Comment on above: The following were t ested for in the sample submitted at the listed thresholds: Amphetamines(1000ng/mL),Methamphetamine (1000 ng/mL),Cocaine and metabolites(300ng/mL),Codeine, Morphine,Hydrocodone,Hydromorphone(300 ng/mL each), Oxycodone(100 ng/mL), and THC metabolites(50 ng/mL). The sample was checked for dilution and substitution. NOTE: These results are for medical treatment only. Analysis performed using non-forensic procedures. Pain Management Drug Panel Negative [facility] Work Phone: REVIEWED BY Rosetta Wooten MLT [facility] Work Phone: Lipid Panelon 06-11-2020 Cholesterol [Mass/Vol] 170 mg/dL <200 [place], [place] Cholesterol in HDL [Mass/Vol] 58 mg/dL 40 - 60 mg/dL [place] Cholesterol in LDL [Mass/Vol] 91 mg/dL <100 [place] Cholesterol.total/Ch olesterol in HDL [Mass ratio] 3 {ratio} [place] Comment on above: Ref Range: < 3 Low Risk for CHD 3-6 Mod Risk for CHD > 6 High Risk for CHD Triglyceride [Mass/Vol] 105 mg/dL <150 [place] Test Performed by [facility], [address] [place] [address] [place], [place] Pain Management Drug Screeno n 06-11-2020 Sodium [Moles/Vol] Negative [place] Sodium [Moles/Vol] See Below [place] Comment on above: The following were t ested for in the sample submitted at the listed thresholds: Amphetamines(1000ng/mL),Methamphetamine (1000 ng/mL),Cocaine and metabolites(300ng/mL),Codeine, Morphine,Hydrocodone,Hydromorphone(300 ng/mL each), Oxycodone(100 ng/mL), and THC metabolites(50 ng/mL). The sample was checked for dilution and substitution. NOTE: These results are for medical treatment only. Analysis performed using non-forensic procedures. Sodium [Moles/Vol] Alex Villafana [place], [place] Test Performed by [facility], [facility] [employer] [place] [address] [place], [place] Basic Metabolic Panelon - Anion gap [Moles/Vol] 8 mmol/L [place] Calcium [Mass/Vol] 10.0 mg/dL 8.4 - 10. 4 mg/dL [place] Chloride [Moles/Vol] 98 mmol/L 98 - 10 7 mmol/L [place] CO2 [Moles/Vol] 32 mmol/L High 22 - 30 mmol/L [place] Creatinine [Mass/Vol] 1.24 mg/dL 0.52 - 1.25 mg/dL [place] EGFR IF NonAfrican [place] Islander 45.2 mL/min >60 [place] Comment on above: Source- MDRD equatio n with creatinine calibration to IDMS(NKDEP) eGFR not recommended for drug dose adjustment GFR/1.73 sq M predicted among blacks MDRD (S/P/Bld) [Vol rate/Area] 54.8 mL/min/{1.73_m2} >60 [place] Glucose [Mass/Vol] 111 mg/dL High 70 - 100 mg/dL [place] Interpretation and review of laboratory results Abnormal [place] Potassium [Moles/Vol] 4.9 mmol/L 3.5 - 5.1 mmol/L [place] Sodium [Moles/Vol] 138 mmol/L 135 - 145 mmol/L [place] Urea nitrogen [Mass/Vol] 24 mg/dL High 7 - 20 mg/dL [place] Test Performed by [facility], [facility] [place] [address] [place] Vital Signs Date Time Vital Sign Value Performing Clinician Facility 10-30-2024 14:16-0500 Body mass index (BMI) [Ratio] 36.5 kg/m2 Gavin Otto MD Work Phone: [facility] 10-30-2024 14:16-0500 Body weight 93.44 kg Gavin Otto MD Work Phone: [facility] 09-19-2024 11:21-0500 Body height 162.6 cm Verlaine Azael DO Work Phone: [facility] [employer] 09-19-2024 11:21-0500 Body mass index (BMI) [Ratio] 35.29 kg/m2 Verlaine Azael DO Work Phone: [facility] [employer] 09-19-2024 11:21-0500 Body temperature 97.9 [degF] Verlaine Azael DO Work Phone: [facility] [employer] 09-19-2024 11:21-0500 Body weight 93.26 kg Verlaine Azael DO Work Phone: [facility] [employer] 09-19-2024 11:21-0500 Diastolic blood pressure 78 mm[Hg] Verlaine Azael DO Work Phone: [facility] [employer] 09-19-2024 11:21-0500 Heart rate 88 /min Verlaine Azael DO Work Phone: [facility] [employer] 09-19-2024 11:21-0500 Respiratory rate 18 /min Verlaine Azael DO Work Phone: [facility] [employer] 09-19-2024 11:21-0500 Systolic blood pressure 138 mm[Hg] Verlaine Azael DO Work Phone: [facility] [employer] 07-22-2024 15:21-0500 Body mass index (BMI) [Ratio] 36.06 kg/m2 Koki Casey BRAKE MACHINE OPERATOR.ENVIRONMENTAL RESEARCH SCIENTIST Work Phone: [facility] 07-22-2024 15:21-0500 Body weight 91.17 kg Koki Casey BRAKE MACHINE OPERATOR.ENVIRONMENTAL RESEARCH SCIENTIST Work Phone: [facility] 07-22-2024 15:21-0500 Diastolic blood pressure 73 mm[Hg] Koki Casey BRAKE MACHINE OPERATOR.ENVIRONMENTAL RESEARCH SCIENTIST Work Phone: [facility] 07-22-2024 15:21-0500 Heart rate 92 /min Koki Casey BRAKE MACHINE OPERATOR.ENVIRONMENTAL RESEARCH SCIENTIST Work Phone: [facility] 07-22-2024 15:21-0500 Respiratory rate 16 /min Koki Casey BRAKE MACHINE OPERATOR.ENVIRONMENTAL RESEARCH SCIENTIST Work Phone: [facility] 07-22-2024 15:21-0500 Systolic blood pressure 119 mm[Hg] Koki Casey BRAKE MACHINE OPERATOR.ENVIRONMENTAL RESEARCH SCIENTIST Work Phone: [facility] 07-17-2024 14:18-0500 Body mass index (BMI) [Ratio] 36.23 kg/m2 Fern Flowers MD Work Phone: [facility] 07-17-2024 14:18-0500 Body weight 91.6 kg Fern Flowers MD Work Phone: [facility] 07-17-2024 14:18-0500 Diastolic blood pressure 55 mm[Hg] Fern Flowers MD Work Phone: [facility] 07-17-2024 14:18-0500 Heart rate 87 /min Fern Flowers MD Work Phone: [facility] 07-17-2024 14:18-0500 Systolic blood pressure 144 mm[Hg] Fern Flowers MD Work Phone: [facility] 12-08-2023 10:06-0400 Body height 159 cm Fern Flowers MD Work Phone: [facility] 12-08-2023 10:06-0400 Body weight 82.1 kg Fern Flowers MD Work Phone: [facility] 12-08-2023 10:06-0400 Diastolic blood pressure 64 mm[Hg] Fern Flowers MD Work Phone: [facility] 12-08-2023 10:06-0400 Heart rate 85 /min Fern Flowers MD Work Phone: [facility] 12-08-2023 10:06-0400 Systolic blood pressure 146 mm[Hg] Fern Flowers MD Work Phone: [facility] 09-21-2023 09:23-0500 Body height 162.6 cm Verlaine Azael DO Work Phone: [facility] [employer] 09-21-2023 09:23-0500 Body mass index (BMI) [Ratio] 33.01 kg/m2 Verlaine Azael DO Work Phone: [facility] [employer] 09-21-2023 09:23-0500 Body temperature 96.6 [degF] Verlaine Azael DO Work Phone: [facility] [employer] 09-21-2023 09:23-0500 Body weight 87.27 kg Verlaine Azael DO Work Phone: [facility] 09-21-2023 09:23-0500 Diastolic blood pressure 81 mm[Hg] Verlaine Azael DO Work Phone: [facility] 09-21-2023 09:23-0500 Heart rate 85 /min Verlaine Azael DO Work Phone: [facility] 09-21-2023 09:23-0500 Respiratory rate 18 /min Verlaine Azael DO Work Phone: [facility] 09-21-2023 09:23-0500 Systolic blood pressure 127 mm[Hg] Verlaine Azael DO Work Phone: [facility] 06-28-2023 15:23-0400 Body mass index (BMI) [Ratio] 35.97 kg/m2 Gavin Otto MD Work Phone: [facility] 06-28-2023 15:23-0400 Body weight 92.08 kg Gavin Otto MD Work Phone: [facility] 06-28-2023 15:23-0400 Respiratory rate 18 /min Gavin Otto MD Work Phone: [facility] 04-12-2023 15:22-0400 Body weight 73.09 kg Titi Mallory Work Phone: [facility] Work Phone: 03-29-2023 15:28-0400 Body weight 81.65 kg Titi Steele [employer] Work Phone: YT-Qpubbwd-Hgoehlp ld Work Phone: 03-29-2023 15:28-0400 Diastolic blood pressure 78 mm[Hg] Titi Steele Newbill Work Phone: WP-Bvuxvon-Pyhgsel ld Work Phone: 03-29-2023 15:28-0400 Systolic blood pressure 140 mm[Hg] Titi Stelee [employer] Work Phone: AJ-Ckcptos-Hygdvxo ld Work Phone: 12-14-2022 08:25-0400 Body height 162.6 cm Lashell Wolf MD Work Phone: [facility] 12-14-2022 08:25-0400 Body temperature 97.2 [degF] Lashell Wolf MD Work Phone: [facility] 12-14-2022 08:25-0400 Diastolic blood pressure 92 mm[Hg] Lashell Wolf MD Work Phone: [facility] 12-14-2022 08:25-0400 Heart rate 87 /min Lashell Wolf MD Work Phone: [facility] 12-14-2022 08:25-0400 Systolic blood pressure 171 mm[Hg] Lashell Wolf MD Work Phone: [facility] 11-10-2022 08:13-0400 Body height 160 cm Pacc 4 Work Phone: [facility] 11-10-2022 08:13-0400 Body temperature 96.01 [degF] Pacc 4 Work Phone: [facility] 11-10-2022 08:13-0400 Body weight 83.83 kg Pacc 4 Work Phone: [facility] 11-10-2022 08:13-0400 Diastolic blood pressure 73 mm[Hg] Pacc 4 Work Phone: [facility] 11-10-2022 08:13-0400 Heart rate 84 /min Pac 4 Work Phone: [facility] 11-10-2022 08:13-0400 SaO2% (BldA) [Mass fraction] 100 % Pacc 4 Work Phone: [facility] 11-10-2022 08:13-0400 Systolic blood pressure 150 mm[Hg] Pac 4 Work Phone: [facility] 09-01-2022 10:11-0500 Diastolic blood pressure 75 mm[Hg] Verlaine Azael DO Work Phone: [employer] Comment on above: [facility] 09-01-2022 10:11-0500 Heart rate 87 /min Verlaine Azael DO Work Phone: [facility] [employer] 09-01-2022 10:11-0500 Systolic blood pressure 144 mm[Hg] Verlaine Azael DO Work Phone: [facility] Comment on above: [facility] 09-01-2022 10:09-0500 Body height 162.6 cm Verlaine Azael DO Work Phone: [employer] 09-01-2022 10:09-0500 Body mass index (BMI) [Ratio] 30.78 kg/m2 Verlaine Azael DO Work Phone: [employer] 09-01-2022 10:09-0500 Body temperature 96.91 [degF] Verlaine Azael DO Work Phone: [employer] 09-01-2022 10:09-0500 Body weight 81.38 kg Verlaine Azael DO Work Phone: [employer] 08-25-2022 17:16-0500 Body temperature 97.81 [degF] Rose Taylor PA-C Work Phone: [facility] 08-25-2022 17:16-0500 Diastolic blood pressure 76 mm[Hg] Rose Athy PA-C Work Phone: [facility] 08-25-2022 17:16-0500 Heart rate 90 /min Rose Athy PA-C Work Phone: [facility] 08-25-2022 17:16-0500 Respiratory rate 16 /min Rose Athy PA-C Work Phone: [facility] 08-25-2022 17:16-0500 SaO2% (BldA) [Mass fraction] 99 % Rose Athy PA-C Work Phone: [facility] 08-25-2022 17:16-0500 Systolic blood pressure 138 mm[Hg] Rose Athy PA-C Work Phone: [facility] Encounters Encounter Date Encounter Type Care Provider Facility Start: 04-21-2025 End: 04-22-2025 Telephone encounter Verlaine L Azael DO Work Phone: [facility] Comment on above: Med Refill Start: 04-07-2025 End: 04-07-2025 Office outpatient visit 25 minutes Gavin Otto MD Work Phone: [facility] Comment on above: Frequent UTI; Neurogenic bladder; Nocturia Start: 04-07-2025 End: 04-07-2025 ambulatory [facility] Start: 03-13-2025 End: 03-13-2025 Office outpatient visit 25 minutes Verlaine L Azael DO Work Phone: [facility] Comment on above: Chronic painful diab etic neuropathy (CMS/HCC) (HCC) (Primary Dx); Acute on chronic renal insufficiency; Screen for colon cancer Start: 03-13-2025 End: 03-13-2025 ambulatory VERLAINE AZAEL [facility] Start: 03-11-2025 End: 03-11-2025 ambulatory VERNCINE [facility] Start: 02-17-2025 End: 02-17-2025 ambulatory Genoveva Cottrell RN [facility] Clinical Communication Start: 02-17-2025 End: 02-17-2025 Patient encounter procedure Genoveva Cottrell RN [facility] Clinic al Communication Start: 01-12-2025 End: 01-13-2025 Refill Verlaine L Azael DO Work Phone: [facility] Comment on above: Psychophysiological insomnia Start: 12-28-2024 End: 12-30-2024 ambulatory Fauzia Osborne RN [facility] Clinical Communication Start: 12-28-2024 End: 12-30-2024 Patient encounter procedure Fauzia Osborne RN [facility] Communication Comment on above: Psychophysiological insomnia Start: 12-28-2024 End: 12-30-2024 Refill Marinamono Josed DO Work Phone: [facility] Comment on above: Chronic painful diab etic neuropathy (CMS/HCC) (HCC) Start: 12-17-2024 End: 12-17-2024 Refill Fern Flowers MD Work Phone: Endocrinology Comment on above: Refill Request Start: 12-10-2024 End: 12-10-2024 ambulatory VERLAINE AZAEL [facility] Start: 12-10-2024 End: 12-10-2024 Office outpatient visit 25 minutes Verlaine L Azael DO Work Phone: [facility] Comment on above: Chronic painful diab etic neuropathy (CMS/HCC) (HCC) (Primary Dx); Psychophysiological insomnia; Microalbuminuria; 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; Screening cholesterol level; Encounter for screening mammogram for malignant neoplasm of breast; Colon cancer screening Start: 10-30-2024 End: 10-30-2024 Office outpatient visit 25 minutes Gavin Otto MD Work Phone: [facility] Comment on above: Nocturia; Urinary retention; Neurogenic bladder; Frequent UTI Start: 10-30-2024 End: 10-30-2024 ambulatory GAVIN OTTO [facility] Start: 09-29-2024 End: 09-30-2024 Refill Verlaine L Azael DO Work Phone: [facility] Comment on above: Chronic painful diab etic neuropathy (CMS/HCC) (HCC) Start: 09-25-2024 End: 09-25-2024 ambulatory SUSAN RENNER-BORA [facility] Start: 09-19-2024 End: 09-19-2024 Office outpatient visit 25 minutes Verlaine L Azael DO Work Phone: [facility] Comment on above: Chronic painful diab etic neuropathy (CMS/HCC) (HCC) (Primary Dx); Essential hypertension; Psychophysiological insomnia; 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; Need for vaccination; Colon cancer screening Start: 09-19-2024 End: 09-19-2024 ambulatory VERGUMAROINE AZAEL [facility] Start: 08-14-2024 End: 08-14-2024 Orders Only Umair Daley MD Work Phone: [facility] [place] Comment on above: Screening mammogram for breast cancer Start: 07-22-2024 End: 07-28-2024 Patient encounter procedure Koki Peña APRN.ENVIRONMENTAL RESEARCH SCIENTIST Work Phone: Neurology Comment on above: Snoring (Primary Dx) ; Chronic, continuous use of opioids; Non-restorative sleep; Excessive daytime sleepiness; RLS (restless legs syndrome) Start: 07-22-2024 End: 07-22-2024 ambulatory NIECY ADDISON Facility:[facility] Start: 07-17-2024 End: 07-17-2024 Patient encounter procedure Fern Flowers MD Work Phone: Endocrinology Comment on above: 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) (Primary Dx) Start: 07-17-2024 End: 07-17-2024 ambulatory FERN FLOWERS Facility:[facility] Start: 06-14-2024 End: 06-14-2024 Telephone encounter Fern Flowers MD Work Phone: Endocrinology Comment on above: Forms (DWO for CGM - Sensors & Transmitter [[employer]]) Start: 06-13-2024 End: 06-13-2024 Office outpatient visit 25 minutes Verlaine L Azael DO Work Phone: [facility] Comment on above: Psychophysiological insomnia (Primary Dx); Chronic painful diabetic neuropathy (CMS/HCC) (HCC); Recurrent major depressive disorder, in remission (HCC); Coronary artery disease involving [place] coronary artery of [place] heart without angina pectoris Start: 06-13-2024 End: 06-13-2024 ambulatory [facility], [place], operated by [facility] Start: 06-11-2024 End: 06-11-2024 ambulatory [facility], [place], operated [facility] Start: 05-22-2024 End: 05-23-2024 Refill Kindra Regula DO Work Phone: [facility] Comment on above: Chronic painful diab etic neuropathy (CMS/HCC) (HCC) Start: 05-14-2024 End: 05-21-2024 Refill Fern Flowers MD Work Phone: Endocrinology Comment on above: Refill Request Start: 05-10-2024 End: 05-20-2024 ambulatory Fern Flowers MD Work Phone: Endocrinology Comment on above: Dexcom prescription Start: 04-25-2024 End: 04-25-2024 Telephone encounter Fern Flowers MD Work Phone: Endocrinology Comment on above: Forms (Prescription Form - Omnipod 5 PODS [[employer]]) Start: 04-24-2024 End: 04-24-2024 melissa HDEZ Facility:[facility] Start: 04-24-2024 End: 04-24-2024 Patient encounter procedure Loc Hdez MD Work Phone: Pain Management Comment on above: Diabetic peripheral neuropathy (HCC) (Primary Dx) Start: 04-23-2024 End: 04-23-2024 Refill Verlaine L Azael DO Work Phone: [facility] Comment on above: Chronic painful diab etic neuropathy (CMS/HCC) (HCC) Start: 04-16-2024 End: 04-16-2024 E-mail encounter from caregiver [facility] Start: 04-16-2024 End: 04-16-2024 Patient encounter procedure [facility] Provider Pain Managem ent Comment on above: Instructions for you r upcoming appointment Start: 04-05-2024 Telephone encounter Jael mccarty RN Work Phone: Diabetic Education [facility] Comment on above: Insulin pump start f /u Start: 04-02-2024 End: 04-02-2024 ambulatory VERLAINE LIMBO AZAEL Facility:[facility] Start: 04-02-2024 End: 04-02-2024 Nursing evaluation of patient and report Jael Cifuentes RN Work Phone: Diabetic Education [facility] Comment on above: 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) (Primary Dx) Start: 03-27-2024 End: 03-27-2024 Office outpatient visit 25 minutes Verlaine L Azael DO Work Phone: [facility] Comment on above: Psychophysiological insomnia (Primary Dx) Start: 03-22-2024 Telephone encounter Fern Flowers MD Work Phone: Endocrinology Comment on above: insulin pump start t raining Start: 03-21-2024 End: 03-21-2024 Office outpatient visit 25 minutes Verlaine L Azael DO Work Phone: [facility] Comment on above: Chronic painful diab etic neuropathy (CMS/HCC) (HCC) (Primary Dx); Pain in both hands; Encounter for screening mammogram for malignant neoplasm of breast; Colon cancer screening Start: 03-12-2024 Telephone encounter Fern Flowers MD Work Phone: Endocrinology Start: 02-16-2024 End: 02-16-2024 ambulatory [facility] Start: 01-07-2024 Refill Verlaine L Osbaldo ser DO Work Phone: [facility] Comment on above: Chronic painful diab etic neuropathy (CMS/HCC) (HCC) Start: 12-21-2023 End: 12-21-2023 Office outpatient visit 25 minutes Verlaine L Azael DO Work Phone: [facility] Comment on above: Chronic painful diab etic neuropathy (CMS/HCC) (HCC) (Primary Dx); Menopausal syndrome on hormone replacement therapy; Encounter for monitoring opioid maintenance therapy; Encounter for screening mammogram for malignant neoplasm of breast; Colon cancer screening Start: 12-08-2023 End: 12-08-2023 ambulatory NIECY ADDISON Facility:[facility] Start: 12-08-2023 End: 12-08-2023 Patient encounter procedure Fern Flowers MD Work Phone: Endocrinology Comment on above: 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) (Primary Dx); 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 ) Start: 09-21-2023 End: 09-21-2023 Office outpatient visit 25 minutes Verlaine L Azael DO Work Phone: [facility] Comment on above: Chronic painful diab etic neuropathy (CMS/HCC) (HCC) (Primary Dx); Menopausal syndrome on hormone replacement therapy; Pain in both hands; Need for vaccination Start: 09-03-2023 Letter encounter Deep vela Work Phone: [facility] Start: 07-18-2023 Telephone encounter Vervenice Joshi Azael DO Work Phone: [facility] Comment on above: Prior Authorization (Leonel SINGH approved) Start: 07-13-2023 Telephone encounter Verlaine L Azael DO Work Phone: [facility] Comment on above: Medication request Start: 06-28-2023 End: 06-28-2023 Office outpatient visit 15 minutes Gavin Otto MD Work Phone: [facility] Comment on above: Urinary retention (P rimary Dx); Neurogenic bladder; Frequent UTI; Nocturia Start: 06-22-2023 End: 06-22-2023 Office outpatient visit 25 minutes Verlaine L Azael DO Work Phone: [facility] Comment on above: Chronic painful diab etic neuropathy (CMS/HCC) (HCC) (Primary Dx); Recurrent major depressive disorder, in remission (HCC); Coronary artery disease involving [place] coronary artery of [place] heart without angina pectoris; Menopausal syndrome on hormone replacement therapy; Colon cancer screening; Encounter for screening mammogram for malignant neoplasm of breast Start: 04-13-2023 Chart Update Titi Mallory Work Phone: [facility] DO Work Phone: Start: 04-12-[address] Otto II Facility:[id number] Start: 04-11-[address] Otto II Facility:[id number] Start: 04-06-2023 End: 04-06-2023 Emergency department patient visit [facility] Facility:[facility] Start: 04-04-2023 Telephone encounter Verlaine L Azael DO Work Phone: [facility] Comment on above: Med Refill (gabapent in (Neurontin) 400 MG capsule//) Start: 03-31-2023 Telephone encounter Verlaine L Azael DO Work Phone: [facility] Comment on above: Med Refill Start: 03-30-2023 Telephone encounter Verlaine L Azael DO Work Phone: [facility] Comment on above: Med Refill Start: 03-29-2023 Office outpatient ne w 30 minutes Titi Mallory Work Phone: [facility] Work Phone: Start: 03-29-[address]za [address] Otto II Facility:[id number] Start: 03-27-2023 ambulatory No Primary Car e Physician [place] Start: 03-10-2023 End: 03-10-2023 Office outpatient visit 25 minutes Verlaine L Azael DO Work Phone: [facility] Comment on above: Chronic painful diab etic neuropathy (CMS/HCC) (HCC) (Primary Dx); Screening for lipid disorders; Need for hepatitis C screening test; Screening for HIV (human immunodeficiency virus); Thyroid disorder screen Start: 02-10-2023 Telephone encounter Tikaluisa Addison DO Work Phone: [facility] Comment on above: Appointment Start: 12-14-2022 End: 12-14-2022 Office outpatient new 60 minutes Lashell Wolf MD Work Phone: [facility] Comment on above: Chronic painful diab etic neuropathy (CMS/HCC) (HCC) (Primary Dx) Start: 12-12-2022 Telephone encounter Niecy Addison DO Work Phone: [facility] Comment on above: Medication Problem ( PA needed ) Start: 12-08-2022 ambulatory No Primary Car e Physician [place] Start: 11-15-2022 Telephone encounter Gavin montilla PA-C Work Phone: [facility] Comment on above: insurance denial Patient Update Start: 11-14-2022 Telephone encounter Alban ortiz PA-C Work Phone: [facility] Comment on above: Patient Update Start: 11-10-2022 End: 11-10-2022 ambulatory Pacc Main 4 Work Phone: Pre Anesthesia Comment on above: Pre-op evaluation (P rimary Dx); Type 1 diabetes mellitus with diabetic neuropathy (HCC); Primary hypertension; Stage 3 chronic kidney disease, unspecified whether stage 3a or 3b CKD (HCC) 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) (Primary Dx) Start: 11-10-2022 Telephone encounter Bailey Felix RN Pre Anesthesia Comment on above: Results Start: 11-10-2022 End: 11-10-2022 Patient encounter procedure Sharan Mendoza MD Work Phone: [facility] Comment on above: Radiculopathy of lum bar region (Primary Dx); Diabetic autonomic neuropathy associated with type 2 diabetes mellitus (HCC) Start: 11-10-2022 End: 11-10-2022 Admission to establishment Pacc Main 4 Work Phone: [facility] Start: 11-10-2022 End: 11-10-2022 Preprocedural examination done Pacc Main 4 Work Phone: Pre Anesthesia Start: 11-08-2022 Telephone encounter Verlaine L Azael DO Work Phone: [facility] Start: 10-31-2022 Telephone encounter Lida Arnett PA-C Work Phone: Pre Anesthesia Comment on above: PACC (Missed appoint ment ) Called Back Start: 09-30-2022 Telephone encounter Sharan Mendoza MD Work Phone: [facility] Comment on above: Patient Question Start: 09-22-2022 End: 09-22-2022 Office outpatient visit 15 minutes Verlaine L Azael DO Work Phone: [facility] Comment on above: Chronic painful diab etic neuropathy (CMS/HCC) (HCC) Start: 09-22-2022 End: 09-22-2022 ambulatory KATELYNN LEWIS Facility:[facility] Start: 09-22-2022 End: 09-22-2022 Patient encounter procedure Katelynn Iveth Lewis PhD Work Phone: [facility] Comment on above: Pain disorder with r elated psychological factors (Primary Dx); Type 1 diabetes mellitus with peripheral autonomic neuropathy (HCC) Start: 09-19-2022 Telephone encounter Sharan Mendoza MD Work Phone: [facility] Comment on above: WOC Appointments Start: 09-15-2022 End: 09-15-2022 ambulatory No Primary Care Physician [place] Start: 09-02-2022 Letter encounter Deep vela Work Phone: [facility] Start: 09-01-2022 End: 09-01-2022 Office outpatient visit 25 minutes Verlaine L Azael DO Work Phone: [facility] Comment on above: Chronic painful diab etic neuropathy (CMS/HCC) (HCC) (Primary Dx) Start: 08-25-2022 End: 08-25-2022 Patient encounter procedure Rose Taylor PA-C Work Phone[facility] Comment on above: Acute non-recurrent maxillary sinusitis (Primary Dx); Conjunctivitis, viral Start: 07-08-2022 End: 07-08-2022 Orders Only Vervenice Robleroser DO Work Phone: [facility] Comment on above: Type 1 diabetes claudia itus with diabetic autonomic neuropathy (CMS/HCC) (HCC) (Primary Dx); Chronic painful diabetic neuropathy (CMS/HCC) (HCC); Colon cancer screening; Encounter for screening mammogram for malignant neoplasm of breast; Screen for colon cancer Start: 07-07-2022 ambulatory Sharan helms MD Work Phone: [facility] Comment on above: Tests Start: 07-01-2022 End: 07-01-2022 ambulatory Emg 850) Neurology Comment on above: EMG Start: 07-01-2022 End: 07-01-2022 Patient encounter procedure Emg 2 Neur Tico (Max Weight: 850) TICO Start: 06-07-2022 ambulatory Verlaine Azael [facility] Start: 06-03-2022 End: 06-03-2022 ambulatory Emg 850) Neurology Comment on above: EMG Start: 06-03-2022 End: 06-03-2022 Patient encounter procedure Emg 2 Neur Tico (Max Weight: 850) TICO Start: 06-02-2022 ambulatory Verlaine Azael [facility] Start: 06-02-2022 End: 06-02-2022 Subsequent hospital visit by physician Niecy Addison DO Work Phone: [facility] LAB USE ONLY Start: 06-02-2022 Letter encounter Deep vela Work Phone: [facility] Start: 05-25-2022 ambulatory GAVIN CRUZ Facility: [facility] Start: 05-25-2022 End: 05-25-2022 Subsequent hospital visit by physician [facility] (1.5t) [facility] Comment on above: Radiculopathy of lum bar region [M54.16] Start: 05-19-2022 End: 05-19-2022 ambulatory No Primary Care Physician Facility:[facility] Start: 04-28-2022 ambulatory Verlaine Azael [facility] Start: 04-28-2022 End: 04-28-2022 Subsequent hospital visit by physician Niecy Ortiz Phone: [facility] USE ONLY Start: 03-17-2022 ambulatory Verlaine Azael [facility] Start: 03-17-2022 End: 03-17-2022 Subsequent hospital visit by physician Niecy Addison DO Work Phone: [facility] USE ONLY Start: 03-16-2022 End: 03-16-2022 Subsequent hospital visit by physician Niecy Addison DO Work Phone: [facility] Laboratory Comment on above: Chronic painful diab etic neuropathy (HCC) Start: 03-10-2022 Letter encounter Deep vela Work Phone: [facility] Start: 12-23-2021 ambulatory Verlaine Azael [facility] Start: 12-23-2021 End: 12-23-2021 Subsequent hospital visit by physician Niecy Addison DO Work Phone: [facility] USE ONLY Start: 10-14-2021 End: 10-14-2021 Subsequent hospital visit by physician Claudio Faith MD Work Phone: [facility] Start: 09-24-2021 ambulatory Verlaine Azael [facility] Start: 08-19-2021 ambulatory Verlaine Azael [facility] Start: 08-19-2021 Encounter for gyneco logical examination (general) (routine) without abnormal findings [facility] Start: 08-02-2021 ambulatory Verlaine Azael [facility] Start: 08-02-2021 End: 08-02-2021 Subsequent hospital visit by physician Ashely Gonzalez DO Work Phone: [facility] USE ONLY Start: 07-29-2021 ambulatory Verlaine Azael [facility] Start: 04-30-2021 End: 04-30-2021 Subsequent hospital visit by physician Niecy Addison DO Work Phone: [facility] USE ONLY Start: 04-14-2021 End: 04-14-2021 Subsequent hospital visit by physician Niecy Addison DO Work Phone: [facility] Comment on above: Urinary frequency Start: 03-19-2021 End: 03-19-2021 Subsequent hospital visit by physician Niecy Addison DO Work Phone: [facility] Comment on above: Chronic painful diab etic neuropathy (HCC); Acute pyelonephritis; Neurogenic bladder Start: 03-18-2021 End: 03-18-2021 Subsequent hospital visit by physician Niecy Addison DO Work Phone: [facility] USE ONLY Start: 03-04-2021 End: 03-04-2021 Letter encounter Deep Tsang Work Phone: [employer] Start: 01-28-2021 End: 01-28-2021 Subsequent hospital visit by physician Niecy Addison DO Work Phone: [facility] USE ONLY Start: 10-29-2020 End: 10-29-2020 Subsequent hospital visit by physician Niecy Addison Work Phone: [facility] USE ONLY Start: 09-08-2020 End: 09-08-2020 Subsequent hospital visit by physician Jean-Paul Villalpando Work Phone: [facility] USE ONLY Start: 06-11-2020 End: 06-11-2020 Subsequent hospital visit by physician Niecy Addison Work Phone: [facility] USE ONLY Comment on above: Essential hypertensi on; Type 1 diabetes mellitus with diabetic polyneuropathy (HCC); Chronic painful diabetic neuropathy (HCC); Encounter for monitoring opioid maintenance therapy Start: 05-28-2020 End: 05-28-2020 Letter encounter Deep Tsang [employer] Start: 12-26-2019 End: 12-26-2019 Subsequent hospital visit by physician Genoveva De La Rosa Work Phone: [facility] USE ONLY Start: 12-24-2019 End: 12-24-2019 Subsequent hospital visit by physician Carl Fishman Work Phone: [facility] USE ONLY Start: 12-12-2019 End: 12-12-2019 Subsequent hospital visit by physician Genoveva De La Rosa Work Phone: [facility] USE ONLY Start: 12-05-2019 End: 12-05-2019 Subsequent hospital visit by physician Genoveva De La Rosa Work Phone: [facility] USE ONLY Start: 11-28-2019 End: 11-28-2019 Subsequent hospital visit by physician Genoveva De La Rosa Work Phone: [facility] USE ONLY Start: 11-26-2019 End: 11-26-2019 Subsequent hospital visit by physician Carl Fishman Work Phone: [facility] USE ONLY Start: 10-24-2019 End: 10-24-2019 Subsequent hospital visit by physician Andrés Pascal Work Phone: [facility] USE ONLY Comment on above: Essential hypertensi on; Type 1 diabetes mellitus with stage 3 chronic kidney disease (HCC) Start: 08-06-2019 End: 08-06-2019 Subsequent hospital visit by physician Jean-Paul Villalpando MD Work Phone: [facility] USE ONLY Start: 05-03-2019 End: 05-03-2019 Subsequent hospital visit by physician Nela Rodriguez Work Phone: [facility] USE ONLY Comment on above: Encounter for monito ring opioid maintenance therapy Procedures Date Procedure Procedure Detail Performing Clinician Start: 03-11-2025 End: 03-11-2025 Comprehensive metabolic panel Verlaine L Azael DO Work Phone: Start: 03-11-2025 Lipid panel Verlaine L Azael DO Work Phone: Start: 03-11-2025 Lipid 1996 panel - S gino or Plasma Verlaine Azael DO Work Phone: Start: 10-30-2024 Urnls dip stick/tabl et rgnt auto w/o microscopy Gavin Otto MD Work Phone: Start: 09-25-2024 End: 09-25-2024 Psychiatric diagnostic evaluation Depression, major, recurrent, mild (HCC) Susan Cole [facility] Comment on above: Depression, major, r ecurrent, mild (HCC) (Primary Dx) Start: 09-19-2024 Creatinine other source Verlaine L Azael DO Work Phone: Start: 09-19-2024 Drug test def 1-7 classes Verlaine L Azael DO Work Phone: Start: 09-19-2024 PAIN MANAGEMENT PANEL V erlaine L Azael DO Work Phone: Start: 10-25-2023 End: 10-25-2023 Psychotherapy w/patient 60 minutes Moderate episode of recurrent major depressive disorder (HCC) Sheila Vidalshay [facility] Work Phone: Comment on above: Moderate episode of recurrent major depressive disorder (HCC) Start: 10-18-2023 End: 10-18-2023 Psychiatric diagnostic evaluation Moderate episode of recurrent major depressive disorder (HCC) Sheila Johnson Jeremías [facility] Work Phone: Comment on above: Moderate episode of recurrent major depressive disorder (HCC) (Primary Dx) Start: 09-21-2023 Comprehensive metabo lic panel Verlaine L Azael DO Work Phone: Start: 09-21-2023 Drug test def 1-7 classes Verlaine L Azael DO Work Phone: Start: 09-21-2023 PAIN MANAGEMENT PANEL V erlaine L Azael DO Work Phone: Start: 09-21-2023 Lipid 1996 panel - S gino or Plasma Verlaine Azael DO Work Phone: Start: 09-21-2023 Thyrotropin [Units/volume] in Serum or Plasma Verlaine Azael DO Work Phone: Start: 06-28-2023 Urnls dip stick/tabl et rgnt auto w/o microscopy Gavin Otto MD Work Phone: Start: 12-14-2022 Drug test def 1-7 classes Verlaine L Azael DO Work Phone: Start: 12-14-2022 PAIN MANAGEMENT PANEL V erlaine L Azael DO Work Phone: Start: 09-01-2022 Creatinine other source Verlaine L Azael DO Work Phone: Start: 09-01-2022 Drug screening fentanyl Verlaine L Azael DO Work Phone: Start: 09-01-2022 PAIN MANAGEMENT PANEL V erlaine L Azael DO Work Phone: Start: 09-01-2022 Drug test def 1-7 classes Verlaine L Azael DO Work Phone: Start: 08-25-2022 COVID WITH FLUA+B, ROUTINE Rose R Claudia PA-C Work Phone: Start: 07-01-2022 Nerve conduction mau dies 5-6 studies Gavin Cruz PA-C Work Phone: Start: 06-03-2022 Nerve conduction mau dies 5-6 studies Gavin Cruz PA-C Work Phone: Start: 08-19-2021 Microscopic observat ion [Identifier] in Cervix by Cyto stain Claudio Faith MD Work Phone: Start: 03-19-2021 Drug tst prsmv instr mnt chem analyzers pr date Verlaine L Azael DO Work Phone: Start: 03-19-2021 PAIN MANAGEMENT DRUG SCREEN Verlaine L Azael DO Work Phone: Start: 06-11-2020 Lipid panel Verlaine L Azael Work Phone: Start: 06-11-2020 PAIN MANAGEMENT DRUG SCREEN Verlaine L Azael Work Phone: Start: 06-11-2020 Lipid 1996 panel - S gino or Plasma Verlaine Azael DO Work Phone: Start: 10-24-2019 Basic metabolic pane l calcium total Anna R Mullinix Work Phone: Start: 05-04-2001 Microscopic observat ion [Identifier] in Cervix by Cyto stain Deep Tsang Plan of Treatment Date Care Activity Detail Author Start: 2041 RSV Immunization for Adults (1 - 1-dose 75+ series) RSV Immunization for Adults (1 - 1-dose 75+ series) [facility] Start: 2031 Pneumococcal 0-64 years Vaccine (2 of 2 - PPSV23) Pneumococcal 0-64 years Vaccine (2 of 2 - PPSV23) [facility] Start: 2031 Pneumococcal 0-64 years Vaccine (2 of 2) Pneumococcal 0-64 years Vaccine (2 of 2) [facility] Work Phone: Start: 09-21-2028 Cyanocobalamin vitamin b-12 Vitamin B-12 [facility] Start: 07-13-2028 DTaP/Tdap/Td vaccine (2 - Td) DTaP/Tdap/Td vaccine (2 - Td) [place] Start: 07-13-2028 DTaP/Tdap/Td vaccine (4 - Td or Tdap) DTaP/Tdap/Td vaccine (4 - Td or Tdap) [facility] Start: 07-13-2028 DTaP/Tdap/Td vaccine (4 - Td) DTaP/Tdap/Td vaccine (4 - Td) [facility] Work Phone: Start: 07-13-2028 DTaP/Tdap/Td Vaccines (4 - Td or Tdap) DTaP/Tdap/Td Vaccines (4 - Td or Tdap) [facility] Start: 07-13-2028 Urine microalbumin profile DTaP,Tdap,Td Vaccine (4 - Td or Tdap) [facility] Start: 08-19-2026 PAP TESTING PAP TESTING [facility] Start: 08-19-2026 Screening for malignant neoplasm of cervix [facility] Start: 2026 RSV Immunization aged 60 or older (1 - 1-dose 60+ series) RSV Immunization aged 60 or older (1 - 1-dose 60+ series) [facility] Start: 03-11-2026 Diabetes: Estimated Glomerular Filtration Rate for [facility] Diabetes: Estimated Glomerular Filtration Rate for [facility] Start: 03-11-2026 Diabetes: Urine Albumin-Creatinine Ratio for [facility] Diabetes: Urine Albumin-Creatinine Ratio for [facility] Start: 03-11-2026 Lipid panel Lipid Panel [facility] Start: 09-19-2025 Diabetes: Urine Albumin-Creatinine Ratio for [facility] Diabetes: Urine Albumin-Creatinine Ratio for [facility] Start: 07-22-2025 BP Controlled (<130/80) BP Controlled (<130/80) [facility] Start: 07-17-2025 Hemoglobin A1c measurement Diabetes: Hemoglobin A1C [facility] Start: 06-05-2025 End: 06-05-2025 Telemedicine consultation with patient 06/05/2025 9:10 AM EDT Telemedicine [facility] [address] [place] [address] Niecy Addison, DO [address] [place] [address] [facility] Start: 06-04-2025 End: 06-04-2025 Telemedicine consultation with patient 06/04/2025 9:10 AM EDT Telemedicine [facility] [address] [place] [address] Niecy Addison DO [address] [place] [id number] [facility] Start: 05-08-2025 End: 04-07-2026 US Kidney - bilateral and Urinary bladder US renal complete Imaging Routine Frequent UTI Expected: 05/08/2025, Expires: 04/07/2026 [facility] Work Phone: Comment on above: Expected: 05/08/2025, Expires: Start: 04-28-2025 Influenza vaccination Influenza Vaccine (#1) [facility] Start: 04-12-2025 End: 04-12-2025 PAIN MANAGEMENT PANEL PAIN MANAGEMENT PANEL Lab Routine Chronic painful diabetic neuropathy (CMS/HCC) (HCC) 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 Expected: 04/12/2025 (Approximate), Expires: 04/12/2025 [facility] Work Phone: Comment on above: Expected: 04/12/2025 (Approximate), Expi res: 04/12/2025 Start: 04-07-2025 End: 04-07-2026 Basic metabolic 2000 panel - Serum or Plasma Basic Metabolic Panel Lab Routine Nocturia Expected: 04/07/2025 (Approximate), Expires: 04/07/2026 [facility] Service Area Work Phone: Comment on above: Expected: 04/07/2025 (Approximate), Expi res: 04/07/2026 Start: 04-07-2025 End: 04-07-2026 Urinalysis complete W Reflex Culture panel - Urine Urinalysis with Reflex Culture and Microscopic Lab Routine Frequent UTI Nocturia Expected: 04/07/2025 (Approximate), Expires: 04/07/2026 [facility] Work Phone: Comment on above: Expected: 04/07/2025 (Approximate), Expi res: 04/07/2026 Start: 03-28-2025 Glaucoma screening Diabetes: Retinopathy Screening [facility] Start: 03-18-2025 Depression Monitoring Depression Monitoring [facility] Start: 03-13-2025 End: 03-13-2025 Telemedicine consultation with patient 03/13/2025 9:10 AM EDT Telemedicine [facility] [address] [place] [address] Niecy Addison DO [address] [place] [address] [facility] Start: 01-14-2025 Hemoglobin A1c measurement HbA1C 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 Expected: 12/10/2024 (Approximate), Expires: 12/10/2025 [facility] Comment on above: Expected: 12/10/2024 (Approximate), Expi res: 12/10/2025 Start: 12-10-2024 End: 12-10-2025 Lipid 1996 panel - Serum or Plasma Lipid panel Lab Routine Screening cholesterol level Expected: 12/10/2024 (Approximate), Expires: 12/10/2025 [facility] Comment on above: Expected: 12/10/2024 (Approximate), Expi res: 12/10/2025 Start: 12-10-2024 End: 12-10-2025 Microalbumin/Creatinin e panel in random Urine Microalbumin / creatinine urine ratio Lab Routine Microalbuminuria Expected: 12/10/2024 (Approximate), Expires: 12/10/2025 [facility] Work Phone: Comment on above: Expected: 12/10/2024 (Approximate), Expi res: 12/10/2025 Start: 12-10-2024 End: 02-09-2025 PAIN MANAGEMENT PANEL PAIN MANAGEMENT PANEL Lab Routine Chronic painful diabetic neuropathy (CMS/HCC) (HCC) 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 Expected: 12/10/2024 (Approximate), Expires: 02/09/2025 [facility] Comment on above: Expected: 12/10/2024 (Approximate), Expi res: 02/09/2025 Start: 12-10-2024 End: 12-10-2024 Telemedicine consultation with patient 12/10/2024 1:00 PM EDT Telemedicine [facility] [address] [place] [address] Niecy Addison DO [address] [place] [address] [facility] Start: 12-07-2024 Diabetes: Urine Albumin-Creatinine Ratio for [facility] Diabetes: Urine Albumin-Creatinine Ratio for [facility] Comment on above: Postponed from 09/01/2023 (Other Medical Reasons) Start: 12-07-2024 Diabetic foot examination Diabetes: Foot Exam [facility] Comment on above: Postponed from 1976 (Other Medical Reasons) Start: 12-07-2024 Hepatitis B screening Urine Albumin:Creatinine Ratio [facility] Start: 12-07-2024 Urine screening for protein Diabetes: Urine Protein Screening [facility] Start: 10-25-2024 End: 10-25-2024 Patient encounter procedure 10/25/2024 2:00 PM EST Office Visit Neurology [address] [place] [address] Koki Peña APRN.ENVIRONMENTAL RESEARCH SCIENTIST [address] [place] [address] follow up after psg Neurology Comment on above: follow up after psg Start: 10-17-2024 Hemoglobin A1c measurement Diabetes: Hemoglobin A1C [facility] Start: 10-04-2024 End: 10-04-2024 Patient encounter procedure 10/04/2024 9:20 PM EST Office Visit Neurology [address] [place] [address] Snoring [R06.83]; Chronic, continuous use of opioids [F11.90]; Non-restorative sleep [G47.8]; Excessive daytime sleepiness [G47.19]; RLS (restless legs syndrome) [G25.81] Neurology Comment on above: Snoring [R06.83]; Chronic, continuous us e of opioids [F11.90]; Non-restorative sleep [G47.8]; Excessive daytime sleepiness [G47.19]; RLS (restless legs syndrome) [G25.81] Start: 09-26-2024 Depression Monitoring Depression Monitoring [facility] [employer] Start: 09-25-2024 End: 09-25-2024 Telemedicine consultation with patient 09/25/2024 11:00 AM EST Telemedicine [facility] [address] [place] [address] Susan Cole LPCC [facility] Start: 09-21-2024 Creatinine measurement Serum Creatinine [facility] Start: 09-21-2024 Diabetes: Estimated Glomerular Filtration Rate for Kidney Health Diabetes: Estimated Glomerular Filtration Rate for Kidney Health [facility] Start: 09-21-2024 Hemoglobin A1c measurement Diabetes: Hemoglobin A1C [facility] Start: 09-21-2024 Hepatitis B surface antibody level LDL Cholesterol [facility] Start: 09-21-2024 Lipid panel Lipid Panel [facility] Start: 09-21-2024 Thyroid stimulating hormone measurement TSH Level [facility] Start: 09-19-2024 End: 09-19-2024 Patient encounter procedure 09/19/2024 11:10 AM EST Office Visit [facility] [address] [place] [address] Niecy Addison DO [address] [place] [address] [facility] Start: 08-19-2024 Screening for malignant neoplasm of cervix [facility] Start: 08-14-2024 End: 08-14-2025 DBT Breast - bilateral screening Bilateral screening mammogram with tomosynthesis Imaging Routine Screening mammogram for breast cancer Expected: 08/14/2024, Expires: 08/14/2025 [facility] Work Phone: Comment on above: Expected: 08/14/2024, Expires: Start: 07-22-2024 End: 07-22-2024 Patient encounter procedure 07/22/2024 3:30 PM EST Office Visit Neurology [address] [place] [address] Koki Peña APRN.ENVIRONMENTAL RESEARCH SCIENTIST [address] [place] [address] Evaluation for Sleep Apnea / sleeping disorder (WebAppointment Request #[id number]) Neurology Comment on above: Evaluation for Sleep Apnea / sleeping di sorder (WebAppointment Request #[id number]) Start: 07-17-2024 End: 07-17-2024 Patient encounter procedure 07/17/2024 2:30 PM EST Office Visit Endocrinology [address] [place] [address] Fern Jackson MD [address] [place], [place] [id number] 6m follow up Endocrinology Comment on above: 6m follow up Start: 07-17-2024 End: 08-16-2025 US Thyroid gland US THYROID/PARATHYROID Radiology Routine Type 1 diabetes mellitus with diabetic polyneuropathy (HCC) Expected: 07/17/2024, Expires: 08/16/[address] [facility] Comment on above: Expected: 07/17/2024, Expires: Start: 06-13-2024 End: 06-13-2024 Telemedicine consultation with patient [facility] Start: 06-12-2024 End: 06-12-2024 Patient encounter procedure 06/12/2024 4:30 PM EDT Office Visit Endocrinology [address] [place] [id number] Fern Jackson MD [address] [place] [address] 6m follow up Endocrinology Comment on above: 6m follow up Start: 05-29-2024 End: 05-29-2024 Patient encounter procedure 05/29/2024 4:30 PM EDT Office Visit Endocrinology [address] [place] [address] Fern Jackson MD [address] [place] [address] 6m follow up Endocrinology Comment on above: 6m follow up Start: 04-28-2024 Covid-19 Vaccine ( season) Covid-19 Vaccine ( season) [facility] Start: 04-28-2024 Influenza vaccination Influenza Vaccine (#1) [facility] Start: 04-24-2024 End: 04-24-2024 Patient encounter procedure 04/24/2024 2:30 PM EDT Office Visit Pain Management [address] [id number] Loc Hdez MD [address] [facility] [place] [address] Severe neuropathy/ diabetes Pain Management Comment on above: Severe neuropathy/ diabetes Start: 04-24-2024 End: 04-24-2024 PAIN MANAGEMENT PANEL PAIN MANAGEMENT PANEL Lab Routine Chronic painful diabetic neuropathy (CMS/HCC) (HCC) Encounter for monitoring opioid maintenance therapy Expected: 04/24/2024 (Approximate), Expires: 04/24/2024 [facility] Work Phone: Comment on above: Expected: 04/24/2024 (Approximate), Expi res: 04/24/2024 Start: 04-02-2024 End: 04-02-2024 Nursing evaluation of patient and report 04/02/2024 2:00 PM EDT Nurse Visit Diabetic Education [facility] [address] [id number] Jael Cifuentes, RN [address] [phone] Insulin pump start Diabetic Education [facility] Comment on above: Insulin pump start Start: 03-21-2024 Depression Monitoring Depression Monitoring [facility] Start: 03-21-2024 Depresssion Monitoring Depresssion Monitoring [facility] Start: 03-21-2024 Hemoglobin A1c measurement HbA1C [facility] Start: 03-21-2024 End: 03-21-2024 Telemedicine consultation with patient 03/21/2024 10:50 AM EDT Telemedicine [facility] [address] [place] [address] Niecy Addison, DO [address] [place] [address] [facility] Start: 03-08-2024 End: 03-08-2024 Patient encounter procedure 03/08/2024 7:40 AM EDT Appointment [facility] [address] [place] [address] Niecy Addison, DO [address] [place] [address] [facility] Start: 01-05-2024 End: 01-05-2024 Patient encounter procedure 01/05/2024 2:40 PM EDT Appointment [facility] [address] [place] [address] Niecy Addison, DO [address] [place] [phone] [facility] Start: 12-27-2023 End: 12-27-2023 Patient encounter procedure 12/27/2023 3:15 PM EDT Office Visit [facility] [address] [facility] [place] [address] [place] [address] Gavin Otto MD [address] [place] [address] [facility] Start: 12-22-2023 Depresssion Monitoring Depresssion Monitoring [facility] Start: 12-22-2023 End: 02-20-2024 PAIN MANAGEMENT PANEL PAIN MANAGEMENT PANEL Lab Routine Chronic painful diabetic neuropathy (CMS/HCC) (HCC) Encounter for monitoring opioid maintenance therapy Expected: 12/22/2023 (Approximate), Expires: 02/20/2024 [facility] [employer] Work Phone: Comment on above: Expected: 12/22/2023 (Approximate), Expi res: 02/20/2024 Start: 12-21-2023 End: 02-19-2025 DBT Breast - bilateral screening Bilateral screening mammogram with tomosynthesis Imaging Routine Encounter for screening mammogram for malignant neoplasm of breast Expected: 12/21/2023 (Approximate), Expires: 02/19/2025 [facility] Comment on above: Expected: 12/21/2023 (Approximate), Expi res: 02/19/2025 Start: 12-21-2023 End: 12-20-2024 Fentanyl & Metab, Ur Qnt Fentanyl & Metab, Ur Qnt Lab Routine Chronic painful diabetic neuropathy (CMS/HCC) (HCC) Encounter for monitoring opioid maintenance therapy Expected: 12/21/2023 (Approximate), Expires: 12/20/2024 [facility] Comment on above: Expected: 12/21/2023 (Approximate), Expi res: 12/20/2024 Start: 12-21-2023 End: 12-20-2024 Hemoglobin.gastrointes tinal.lower [Presence] in Stool by Immunoassay Fecal Immunochemical Test Microbiology Routine Colon cancer screening Expected: 12/21/2023, Expires: 12/20/2024 [facility] Comment on above: Expected: 12/21/2023, Expires: Start: 12-21-2023 End: 12-21-2023 Telemedicine consultation with patient 12/21/2023 11:10 AM EDT Telemedicine [facility] [address] [place] [address] Niecy Addison DO [address] [place] [address] [facility] Start: 11-11-2023 Complete blood count Hemoglobin/Hematocrit [facility] Start: 11-11-2023 HEMOGLOBIN/HEMATOCRIT HEMOGLOBIN/HEMATOCRIT [facility] Start: 11-11-2023 SERUM CREATININE SERUM CREATININE [facility] Start: 10-25-2023 End: 10-25-2023 Telemedicine consultation with patient 10/25/2023 2:00 PM EST Telemedicine [facility] [address] [place] [phone] Sheila Veronica, [facility] [address] [place] [address] [facility] Start: 10-18-2023 End: 10-18-2023 Telemedicine consultation with patient 10/18/2023 3:00 PM EST Telemedicine [facility] [address] [place] [address] Sheila Veronica, [facility] [address] [place] [address] [facility] Start: 09-21-2023 End: 09-21-2024 Fentanyl & Metab, Ur Qnt [facility] Work Phone: Comment on above: Expected: 09/21/2023 (Approximate), Expi res: 09/21/2024 Start: 09-21-2023 End: 09-21-2023 Patient encounter procedure 09/21/2023 9:10 AM EST Office Visit [facility] [address] [place] [address] Niecy Addison DO [address] [place] [address] [facility] Start: 09-10-2023 Depresssion Monitoring Depresssion Monitoring [facility] Start: 09-01-2023 Diabetes: Urine Albumin-Creatinine Ratio for Kidney Health Diabetes: Urine Albumin-Creatinine Ratio for Kid[facility] Start: 09-01-2023 Hepatitis B screening URINE ALBUMIN:CREATININE RATIO [facility] Start: 09-01-2023 Urine screening for protein Diabetes: Urine Protein Screening [facility] Start: 08-19-2023 COVID-19 Vaccine (4 - Moderna series) COVID-19 Vaccine (4 - Moderna series) [facility] Start: 08-19-2023 Hepatitis B Vaccines (3 of 3 - 19+ 3-dose series) Hepatitis B Vaccines (3 of 3 - 19+ 3-dose series) [facility] Start: 06-28-2023 FUV, Provider: Gavin Otto II, Status: Pen, Time: 3:15 PM FUV, Provider: Gavin Otto II, Status: Pen, Time: 3:15 PM [id number] Work Phone: Start: 06-28-2023 End: 07-05-2023 Bacteria identified in Urine by Culture Urine Culture Microbiology Routine Frequent UTI Expected: 06/28/2023 (Approximate), Expires: 07/05/2023 [facility] Service Area Work Phone: Comment on above: Expected: 06/28/2023 (Approximate), Expi res: 07/05/2023 Start: 06-22-2023 End: 06-22-2023 Telemedicine consultation with patient 06/22/2023 8:30 AM EDT Telemedicine [facility] [address] [place] [address] Niecy Addison DO [address] [place] [address] [facility] Start: 06-15-2023 Depresssion Monitoring Depresssion Monitoring [facility] Start: 05-13-2023 Hemoglobin A1c/Hemoglobin.total in Blood HBA1C [facility] Start: 04-28-2023 COVID-19 Vaccine ( season) COVID-19 Vaccine () [facility] Start: 04-28-2023 Influenza vaccination Influenza Vaccine (#1) [facility] Start: 04-12-2023 CYSTOSCOPY, Provider: [facility]OLOGY PROCEDURE RM,[id number], Status: Pen, Time: 3:00 PM CYSTOSCOPY, Provider: HOAHAOISM UROLOGY PROCEDURE RM,[id number], Status: Pen, Time: 3:00 PM [id number] Work Phone: Start: 03-17-2023 Depression Monitoring Depression Monitoring [facility] Start: 03-11-2023 End: 05-11-2023 PAIN MANAGEMENT PANEL PAIN MANAGEMENT PANEL Lab Routine Chronic painful diabetic neuropathy (CMS/HCC) (HCC) Expected: 03/11/2023 (Approximate), Expires: 05/11/2023 [facility] Work Phone: Comment on above: Expected: 03/11/2023 (Approximate), Expi res: 05/11/2023 Start: 03-10-2023 End: 03-10-2024 Fentanyl & Metab, Ur Qnt Fentanyl & Metab, Ur Qnt Lab Routine Chronic painful diabetic neuropathy (CMS/HCC) (HCC) Expected: 03/10/2023 (Approximate), Expires: 03/10/2024 [facility] Comment on above: Expected: 03/10/2023 (Approximate), Expi res: 03/10/2024 Start: 03-09-2023 End: 03-09-2023 Telemedicine consultation with patient 03/09/2023 11:10 AM EDT Telemedicine [facility] [address] [place] [address] Niecy Addison, DO [address] [place] [address] [facility] Start: 02-10-2023 Hemoglobin A1c measurement Diabetes: Hemoglobin A1C [facility] Start: 12-17-2022 Creatinine measurement Creatinine [facility] Start: 12-17-2022 Potassium [Moles/volume] in Serum or Plasma Potassium [facility] Start: 12-17-2022 SERUM CREATININE SERUM CREATININE [facility] Start: 12-14-2022 End: 12-14-2022 Patient encounter procedure 12/14/2022 Office Visit Family Medicine Lashell Wolf MD [address] [place] [address], [address] [place] [address] [facility] Start: 11-14-2022 End: 01-14-2023 CBC panel - Blood by Automated count CBC Lab Routine Radiculopathy of lumbar region Expected: 11/14/2022, Expires: 01/14/2023 [facility] Work Phone: Comment on above: Expected: 11/14/2022, Expires: 3 Start: 11-10-2022 End: 01-10-2023 Hemoglobin A1c in Blood [facility] Work Phone: Comment on above: Expected: 11/10/2022, Expires: 3 Start: 10-20-2022 End: 10-20-2022 Telemedicine consultation with patient 10/20/2022 Telemedicine Family Medicine Niecy Addison DO [address] [place] [address] [facility] Start: 09-22-2022 End: 09-22-2022 Telemedicine consultation with patient 09/22/2022 Telemedicine Family Medicine Niecy Addison DO [address] [place] [address] [facility] Start: 09-02-2022 End: 09-02-2023 Fentanyl & Metab, Ur Qnt [facility] Work Phone: Comment on above: Expected: 09/02/2022 (Approximate), Expi res: 09/02/2023 Start: 08-20-2022 Yearly Adult Physical Yearly Adult Physical [facility] Start: 07-08-2022 End: 09-07-2023 MG Breast - bilateral Screening Bilateral screening mammogram Imaging Routine Encounter for screening mammogram for malignant neoplasm of breast Expected: 07/08/2022, Expires: 09/07/2023 [facility] [employer] [facility] Work Phone: Comment on above: Expected: 07/08/2022, Expires: Start: 06-30-2022 End: 06-30-2022 Telemedicine consultation with patient 06/30/2022 Telemedicine Family Medicine Lillian Maldonado, DIGITAL PROJECT COORDINATOR [address] [place] [address] [facility] Start: 06-09-2022 End: 06-09-2022 Telemedicine consultation with patient 06/09/2022 Telemedicine Family Medicine Niecy Addison DO [address] [place] [address] [facility] Start: 06-07-2022 End: 06-07-2022 Telemedicine consultation with patient 06/07/2022 Telemedicine Family Medicine Niecy Addison DO [address] [place] [address] [facility] Start: 06-02-2022 End: 06-02-2022 Telemedicine consultation with patient 06/02/2022 Telemedicine Family Medicine Lillian Maldonado, DIGITAL PROJECT COORDINATOR [address] [place] [address] [facility] Start: 05-28-2022 Influenza vaccination Influenza Vaccine (#1) [facility] Start: 04-28-2022 Influenza vaccination [facility] Start: 03-28-2022 Influenza vaccination Flu vaccine (#1) [facility] Start: 03-17-2022 End: 03-17-2022 Telemedicine consultation with patient 03/17/2022 Telemedicine [facility] Niecy Addison DO [address] [place] [address] [facility] Start: 12-18-2021 COVID-19 Vaccine (4 - Booster for Moderna series) COVID-19 Vaccine (4 - Booster for Moderna series) [facility] Start: 11-25-2021 End: 11-25-2021 Telemedicine consultation with patient 11/25/2021 Telemedicine [facility] Niecy Addison DO [address] [place] [address] [facility] Start: 10-14-2021 COVID-19 VACCINE (4 - Booster for Moderna series) COVID-19 VACCINE (4 - Booster for Moderna series) [facility] Start: 10-14-2021 Covid-19 Vaccine (4 - Moderna series) Covid-19 Vaccine (4 - Moderna series) [facility] Start: 08-19-2021 End: 08-19-2021 Patient encounter procedure 08/19/2021 Office Visit [facility] Niecy Addison DO [address] [place] [address] [facility] Start: 06-11-2021 Depression Monitoring Depression Monitoring [facility] Start: 06-11-2021 Lipid panel [facility] Start: 06-11-2021 End: 06-11-2021 Patient encounter procedure 06/11/2021 Office Visit [facility] Ashely Gonzalez, DO [address] [place], [place] [id number] [facility] Start: 06-07-2021 End: 06-07-2021 Patient encounter procedure 06/07/2021 Office Visit Endocrinology Kathleen Mckeon MD [address] [place], [place] [id number] [facility] Start: 06-05-2021 COVID-19 Vaccine (3 - Booster for Moderna series) COVID-19 Vaccine (3 - Booster for Moderna series) [facility] Start: 05-28-2021 Influenza vaccination Influenza Vaccine (#1) [facility] Start: 05-20-2021 End: 05-20-2021 Patient encounter procedure 05/20/2021 Office Visit Family Medicine Niecy Addison DO [address] [place] [address] [facility] Start: 05-06-2021 COVID-19 Vaccine (3 - Booster for Moderna series) COVID-19 Vaccine (3 - Booster for Moderna series) [facility] Start: 05-04-2021 End: 05-04-2021 Patient encounter procedure 05/04/2021 Office Visit Infectious Diseases Martine Vargas MD [address] [place] [address] [facility] Start: 04-30-2021 End: 04-30-2021 Telemedicine consultation with patient 04/30/2021 Telemedicine Family Medicine Niecy Addison DO [address] [place] [address] [facility] Start: 04-28-2021 Influenza vaccination Flu vaccine (#1) [facility] Work Phone: Start: 03-18-2021 End: 03-18-2021 Patient encounter procedure 03/18/2021 Office Visit Family Medicine Niecy Addison DO [address] [place] [address] [facility] Start: 01-28-2021 End: 01-28-2021 Telemedicine 01/28/2021 Telemedicine Family Medicine Niecy Addison DO [address] [place] [address] [facility] Start: 12-11-2020 End: 12-11-2020 Office Visit 12/11/2020 Office Visit [facility] Start: 10-29-2020 End: 10-29-2020 Virtual Visit 10/29/2020 Virtual Visit [facility] Niecy Addison DO [address] [place] [phone] [facility] Start: 10-24-2020 Creatinine measurement Creatinine monitoring [facility] Start: 10-24-2020 Creatinine monitoring Creatinine monitoring [place], [place] Start: 10-24-2020 Potassium monitoring Potassium monitoring [facility] Start: 09-28-2020 End: 09-28-2020 Procedure visit 09/28/2020 Procedure visit Family Medicine Yelena Silva MD [address] [place] [address] [phone] [facility] Start: 09-03-2020 End: 09-03-2020 Virtual Visit 09/03/2020 Virtual Visit [facility] Niecy Addison DO [address] [place] [phone] [facility] Start: 07-09-2020 Hepatitis B vaccine (2 of 3 - Risk 3-dose series) Hepatitis B vaccine (2 of 3 - Risk 3-dose series) [facility] Start: 07-09-2020 Hepatitis B vaccine (2 of 4 - 4-dose series) Hepatitis B vaccine (2 of 4 - 4-dose series) [facility] Start: 07-09-2020 Hepatitis B Vaccines (2 of 3 - 19+ 3-dose series) Hepatitis B Vaccines (2 of 3 - 19+ 3-dose series) [facility] Start: 07-09-2020 Hepatitis B Vaccines (2 of 3 - 3-dose series) Hepatitis B Vaccines (2 of 3 - 3-dose series) [facility] Start: 05-28-2020 Influenza vaccination Influenza Vaccine (#1) [facility] Start: 05-19-2020 End: 05-19-2020 Office Visit 05/19/2020 Office Visit Family Medicine Carl Fishman MD [address] [place] [address] [id number] [facility] Start: 04-28-2020 HbA1c (Bld) [Mass fraction] A1C test (Diabetic or Prediabetic) [place], [place] Start: 04-28-2020 Hemoglobin A1c measurement [facility] Start: 01-31-2020 [object Object] Diabetic foot exam [place] Start: 01-31-2020 Diabetic foot examination Diabetic foot exam [facility] Start: 12-24-2019 End: 12-24-2019 Office Visit 12/24/2019 Office Visit Family Medicine Carl Fishman MD [address] [place] [address] [phone] [facility] Start: 12-19-2019 Shingles Vaccine (2 of 2) Shingles Vaccine (2 of 2) [place] Start: 12-05-2019 End: 12-05-2019 Office Visit 12/05/2019 Office Visit [facility] Genoveva De La Rosa, PhD [address] [place] [id number] [facility] Start: 11-26-2019 End: 11-26-2019 Office Visit 11/26/2019 Office Visit [facility] Medicine Carl Fishman MD [address] [place] [address] [phone] [facility] Start: 11-09-2019 A1C test (Diabetic or Prediabetic) A1C test (Diabetic or Prediabetic) [place] Start: 11-09-2019 HbA1c (Bld) [Mass fraction] A1C test (Diabetic or Prediabetic) [place] Start: 09-06-2019 End: 09-06-2019 Patient encounter procedure 09/06/2019 Office Visit Family Medicine Anna Mancilla DO [address] [place] [address] [phone] [facility] Start: 07-28-2019 Hemoglobin A1c measurement Diabetes: Hemoglobin A1C [facility] Start: 04-28-2019 Influenza vaccination Flu vaccine (#1) [place] Start: 02-02-2019 Creatinine monitoring Creatinine monitoring [place], [place] Start: 02-02-2019 Potassium monitoring Potassium monitoring [place] Start: 08-10-2018 Diabetic retinal exam Diabetic retinal exam [facility] Start: 05-17-2017 3 comp foot exam completed DIABETIC FOOT EXAM [facility] Start: 05-17-2017 Diabetic foot examination Diabetic Foot Exam [facility] Start: 05-03-2017 Hepatitis B screening URINE ALBUMIN:CREATININE RATIO [facility] Start: 05-03-2017 Hepatitis B surface antibody level LDL CHOLESTEROL [facility] Start: 10-31-2016 Hemoglobin A1c/Hemoglobin.total in Blood HBA1C [facility] Start: 2016 Colon cancer screen colonoscopy Colon cancer screen colonoscopy [facility] [place] Start: 2016 Measurement of occult blood in single stool specimen FIT [facility] Start: 2016 Screening for malignant neoplasm of breast Mammography [facility] Start: 2016 Screening for malignant neoplasm of colon [facility] Start: 2016 Shingles Vaccine (1 of 2) Shingles Vaccine (1 of 2) [facility] Start: 2016 SHINGRIX VACCINE (1 of 2) SHINGRIX VACCINE (1 of 2) [facility] Start: 2016 Varicella-zoster vaccine (product) [facility] Start: 05-28-2014 Pneumococcal 0-64 years Vaccine (2 - PCV) Pneumococcal 0-64 years Vaccine (2 - PCV) [facility] Start: 03-20-2014 Glaucoma screening Dilated Retinal Exam [facility] Start: 03-20-2014 Hepatitis C antibody, confirmatory test DILATED RETINAL EXAM [facility] Start: 02-25-2014 HPV TESTING HPV TESTING [facility] Start: 02-25-2014 Screening for malignant neoplasm of cervix HPV Testing [facility] Start: 06-16-2011 PNEUMOCOCCAL (2 - PCV) PNEUMOCOCCAL (2 - PCV) [facility] Start: 06-16-2011 Pneumococcal 0-64 years Vaccine (2 - PCV) Pneumococcal 0-64 years Vaccine (2 - PCV) [facility] Start: 06-16-2011 Pneumococcal vaccination Pneumococcal Vaccine (2 - PCV) [facility] Start: 2011 Cholesterol [Mass/Vol] Cholesterol [facility] Start: 2011 COLOGUARD (FIT-DNA) COLOGUARD (FIT-DNA) [facility] Start: 2011 Colonoscopy COLONOSCOPY [facility] Start: 2011 COLORECTAL CANCER SCREENING COLORECTAL CANCER SCREENING [facility] Start: [address] COLONOGRAPHY [facility] Start: 2011 FECAL OCCULT BLOOD FECAL OCCULT BLOOD [facility] Start: 2011 Screening for malignant neoplasm of colon [facility] Start: 2011 SIGMOIDOSCOPY SIGMOIDOSCOPY [facility] Start: 04-17-2010 Urine microalbumin profile [facility] Start: 2006 Breast cancer screen Breast cancer screen [place] Start: [address] [facility] Start: 2006 Screening for malignant neoplasm of breast [facility] Start: 05-04-2004 Screening for malignant neoplasm of cervix Pap Smear [facility] Start: 1996 Screening for malignant neoplasm of cervix [facility] Start: 1987 Cervical cancer screen Cervical cancer screen [place] Start: 1987 Screening for malignant neoplasm of cervix [facility] Start: 1985 Hepatitis A Vaccines (1 of 2 - Risk 2-dose series) Hepatitis A Vaccines (1 of 2 - Risk 2-dose series) [facility] Start: 1985 Hepatitis B vaccine (1 of 3 - Risk 3-dose series) Hepatitis B vaccine (1 of 3 - Risk 3-dose series) [place] Start: 1985 Tetanus vaccination [facility] Start: 1985 Urine screening for protein Diabetes: Urine Protein Screening [facility] Start: 1984 ANNUAL PCP TEAM CHRONIC DISEASE VISIT ANNUAL PCP TEAM CHRONIC DISEASE VISIT [facility] Start: 1984 Anxiety Screening Anxiety Screening [facility] Start: 1984 BP CONTROLLED (<130/80) BP CONTROLLED (<130/80) [facility] Start: 1984 Hepatitis C antibody, confirmatory test Hepatitis C Antibody [facility] Start: 1984 Hepatitis C screening [facility] Start: 1984 HEPATITIS C SCREENING HEPATITIS C SCREENING [facility] Start: 1984 HIV SCREENING HIV SCREENING [facility] Start: 1984 HIV screening HIV Screening [facility] Start: 1984 Pneumococcal polysaccharide vaccine (product) Pneumococcal Vaccine: PPSV23 (1) [facility] Start: 1984 Tetanus + diphtheria + acellular pertussis vaccine (product) [facility] Start: 1982 COVID-19 Vaccine (1 of 2) COVID-19 Vaccine (1 of 2) [facility] Work Phone: Start: 1981 HIV screen HIV screen [place] Start: 1981 HIV screening [facility] Start: 1978 COVID-19 Vaccine (1) COVID-19 Vaccine (1) [facility] Start: 1978 Depression Monitoring Depression Monitoring [facility] Start: 1976 Diabetic foot examination Diabetes: Foot Exam [facility] Start: 1976 Glaucoma screening Diabetes: Retinopathy Screening [facility] Start: 1976 Lipid panel Lipid screen [place] Start: 1976 Lipid screen Lipid [place] Start: 1976 Preventive dental service Diabetes: Dental Exam [facility] Start: 1967 MMR Vaccines (1 of 1 - Standard series) MMR Vaccines (1 of 1 - Standard series) [facility] Start: 1966 COVID-19 Vaccine (#1) COVID-19 Vaccine (#1) [facility] Start: 1966 [facility] Start: 1966 Cyanocobalamin vitamin b-12 Vitamin B-12 [facility] Start: 1966 Diabetes: Celiac Disease Screening Diabetes: Celiac Disease Screening [facility] Start: 1966 HEPATITIS B (1 of 3 - 3-dose series) HEPATITIS B (1 of 3 - 3-dose series) [facility] Start: 1966 Hepatitis B vaccination Hepatitis B (HBV) Vaccine (1 of 3 - 3-dose series) [facility] Start: 1966 Hepatitis B Vaccine (1 of 3 - 3-dose series) Hepatitis B Vaccine (1 of 3 - 3-dose series) [facility] Start: 1966 Hepatitis C screening Hepatitis C screen [facility] Start: 1966 HIV screening HIV Screening [facility] Start: 1966 Lipid panel Lipid Panel [facility] Start: 1966 Screening for malignant neoplasm [facility] Start: 1966 Thyroid stimulating hormone measurement TSH Level [facility] Start: 1966 Yearly Adult Physical Yearly Adult Physical [facility] End: 03-19-2021 Bacteria identified in Urine by Culture Urine Culture Microbiology Routine Acute pyelonephritis Neurogenic bladder 1 Occurrences starting 03/19/2021 until 03/19/2021 [employer] Work Phone: Comment on above: 1 Occurrences starting 03/19/2021 until 03/19/2021 Bacteria identified in Urine by Culture [employer] Work Phone: End: 04-14-2021 Bacteria identified in Urine by Culture Urine Culture Microbiology Routine Urinary frequency 1 Occurrences starting 04/14/2021 until 04/14/2021 [employer] Work Phone: Comment on above: 1 Occurrences starting 04/14/2021 until 04/14/2021 Cobalamin (Vitamin B12) [Mass/volume] in Serum or Plasma Vitamin B12 Lab Routine Chronic painful diabetic neuropathy (CMS/HCC) ([facility]) Ordered: 03/10/2023 [employer] Comment on above: Ordered: 03/10/2023 Cologuard colon canc er screening Cologuard colon cancer screening Lab Routine Colon cancer screening Ordered: 12/21/2023 [employer] Comment on above: Ordered: 12/21/2023 Cologuard colon canc er screening Cologuard colon cancer screening Lab Routine Screen for colon cancer Ordered: 04/19/2024 [employer] Comment on above: Ordered: 04/19/2024 Cologuard colon canc er screening Cologuard colon cancer screening Lab Routine Screen for colon cancer Ordered: 03/13/2025 [employer] Work Phone: Comment on above: Ordered: 03/13/2025 Fentanyl & Metab, Ur Qnt Fentanyl & Metab, Ur Qnt Lab Routine Chronic painful diabetic neuropathy (CMS/HCC) ([facility]) 12/14/2022 9:02 AM EDT [employer] Work Phone: Fentanyl & Metab, Ur Qnt Fentanyl & Metab, Ur Qnt Lab Routine Chronic painful diabetic neuropathy (CMS/HCC) ([facility]) Encounter for monitoring opioid maintenance therapy 06/11/2024 3:40 PM EDT [employer] End: 03-16-2022 Fentanyl, Urine [employer] Work Phone: Comment on above: 1 Occurrences starting 03/16/2022 until 03/16/2022 Fentanyl, urine Fentanyl, urine Lab Routine Chronic painful diabetic neuropathy (CMS/HCC) ([facility]) 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 03/11/2025 4:46 PM EDT [facility] Hemoglobin A1c/Hemoglobin.total in Blood Hemoglobin A1c Lab Routine Chronic painful diabetic neuropathy (CMS/HCC) (HCC) Ordered: 03/10/2023 [facility] [employer] Comment on above: Ordered: 03/10/2023 Hemoglobin A1c/Hemoglobin.total in Blood HEMOGLOBIN A1C (POC) Lab Routine Type 1 diabetes mellitus with diabetic polyneuropathy (HCC) Ordered: 07/17/2024 [facility] Work Phone: Comment on above: Ordered: 07/17/2024 Hepatitis C virus Ab [Presence] in Serum or Plasma by Immunoassay Hepatitis C antibody Lab Routine Need for hepatitis C screening test Ordered: 03/10/2023 [facility] [employer] Comment on above: Ordered: 03/10/2023 HIV 1+2 Ab+HIV1 p24 Ag [Presence] in Serum or Plasma by Immunoassay HIV-1 and HIV-2 Antigen-Antibody Screen Lab Routine Screening for HIV (human immunodeficiency virus) Ordered: 03/10/2023 [facility] [employer] Comment on above: Ordered: 03/10/2023 Lipid 1996 panel - Serum or Plasma Lipid panel Lab Routine Screening for lipid disorders Ordered: 03/10/2023 [facility] [employer] Comment on above: Ordered: 03/10/2023 End: 05-25-2022 Mri spinal canal lumbar w/o contrast material [facility] Work Phone: Comment on above: 1 Occurrences starting 05/25/2022 until 05/25/2022 End: 05-25-2022 Mri spinal canal thoracic w/o contrast matrl [facility] Work Phone: Comment on above: 1 Occurrences starting 05/25/2022 until 05/25/2022 End: 05-03-2019 Pain Management Drug Screen Pain Management Drug Screen Lab Routine Encounter for monitoring opioid maintenance therapy 1 Occurrences starting 05/03/2019 until 05/03/2019 [facility] [employer] [facility] Comment on above: 1 Occurrences starting 05/03/2019 until 05/03/2019 Pain Management Drug Screen Pain Management Drug Screen Lab Routine Encounter for monitoring opioid maintenance therapy 05/03/2019 3:58 PM EDT [facility] End: 03-16-2022 Pain Management Drug Screen [facility] Work Phone: Comment on above: 1 Occurrences starting 03/16/2022 until 03/16/2022 End: 07-22-2025 Polysomnogram POLYSOMNOGRAM (PSG) Procedures Routine Snoring Chronic, continuous use of opioids Non-restorative sleep Excessive daytime sleepiness RLS (restless legs syndrome) 1 Occurrences starting 07/22/2024 until 07/22/2025 [facility] Work Phone: Comment on above: 1 Occurrences starting 07/22/2024 until 07/22/2025 STAPH AUREUS PCR STAPH AUREUS PC R Lab Routine 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) 11/10/2022 6:18 PM EDT [facility] Work Phone: Thyrotropin [Units/volume] in Serum or Plasma TSH Lab Routine Chronic painful diabetic neuropathy (CMS/HCC) (HCC) Thyroid disorder screen Ordered: 03/10/2023 [facility] [employer] Comment on above: Ordered: 03/10/2023 [facility] Immunizations Immunization Date Immunization Notes Care Provider Fa [facility] 09-19-2024 influenza, injectabl e, madin [place] canine kidney, preservative free Verlaine Azael DO Work Phone: [facility] [employer] 09-19-2024 influenza virus vaccine, unspecified formulation Verlaine Azael DO Work Phone: [facility] [employer] 09-21-2023 hepatitis B vaccine, adult dosage Verlaine Azael DO Work Phone: [facility] [employer] 06-24-2023 Hepatitis B vaccine (recombinant), CpG adjuvanted Gavin Otto MD Work Phone: [facility] Work Phone: 06-24-2023 Influenza, injectabl e, Madin [place] Canine Kidney, preservative free, quadrivalent Gavin Otto MD Work Phone: [facility] Work Phone: 06-24-2023 Moderna COVID-19 vaccine, Fall 2022, 12 yeasrs and older (50mcg/0.5mL) Gavin Otto MD Work Phone: [facility] Work Phone: 06-24-2023 influenza virus vaccine, unspecified formulation Fern Flowers MD Work Phone: [facility] 07-02-2022 influenza, injectabl e, quadrivalent, preservative free Gavin Otto MD Work Phone: [facility] Work Phone: 07-02-2022 Pneumococcal Conjuga te PCV20, Pf (Prevnar 20) Verlaine Azael DO Work Phone: [facility] 07-02-2022 influenza virus vaccine, unspecified formulation Verlaine Azael DO Work Phone: [facility] 08-19-2021 COVID-19, MODERNA BL UE border, Primary or Immunocompromised, (age 12y+), IM, 100 mcg/0.5mL Verlaine Azael DO Work Phone: [facility] Work Phone: 08-02-2021 influenza, injectabl e, quadrivalent, preservative free Ashely Pierreo DO Work Phone: [facility] 12-04-2020 COVID-19, Moderna, P F, 100mcg/0.5mL Verlaine Azael DO Work Phone: [facility] Work Phone: 11-06-2020 COVID-19, Moderna, P F, 100mcg/0.5mL Verlaine Azael DO Work Phone: [facility] 06-11-2020 hepatitis B vaccine, adult dosage Verlaine Azael [facility] 06-11-2020 influenza, injectabl e, quadrivalent, preservative free Verlaine Azael [facility] 03-14-2020 zoster vaccine recombinant Verlaine Azael [facility] 10-24-2019 [facility] [place] 08-06-2019 Seasonal, quadrivale nt, recombinant, injectable influenza vaccine, preservative free Gavin Otto MD Work Phone: [facility] Work Phone: 08-01-2019 influenza virus vaccine, unspecified formulation Jean-Paul Villalpando MD Work Phone: [facility] 07-13-2018 influenza, injectabl e, quadrivalent, preservative free Gavin Otto MD Work Phone: [facility] Work Phone: 07-13-2018 Influenza, Quadv, 6 mo and older, IM, PF (Flulaval, Fluarix) [facility] 07-13-2018 influenza, seasonal, injectable Gavin Otto MD Work Phone: [facility] Work Phone: 07-13-2018 tetanus toxoid, redu hugo diphtheria toxoid, and acellular pertussis vaccine, adsorbed [facility] 09-29-2017 tetanus toxoid, redu hugo diphtheria toxoid, and acellular pertussis vaccine, adsorbed [facility] 06-14-2017 influenza, injectabl e, quadrivalent, preservative free [facility] 06-19-2015 influenza, seasonal, injectable Gavin Otto MD Work Phone: [facility] Work Phone: 06-06-2014 influenza, seasonal, injectable Gavin Otto MD Work Phone: [facility] Work Phone: 09-20-2013 Influenza Vaccine, unspecified formulation [facility] , [place] 09-20-2013 influenza virus vaccine, unspecified formulation Mri (1.5t) [facility] 05-28-2013 pneumococcal polysaccharide vaccine, 23 valent Verlaine Azael DO Work Phone: [facility] 06-22-2012 Influenza Vaccine, unspecified formulation [facility] [place] 06-22-2012 influenza virus vaccine, unspecified formulation Mri (1.5t) [facility] 08-28-2010 tetanus toxoid, redu hugo diphtheria toxoid, and acellular pertussis vaccine, adsorbed Andrés GRANT Work Phone: 06-16-2010 pneumococcal polysaccharide vaccine, 23 valent [facility], [place] 04-16-2010 Td, unspecified formulation [facility] 04-16-2010 tetanus and diphther ia toxoids, adsorbed, preservative free, for adult use (2 Lf of tetanus toxoid and 2 Lf of diphtheria toxoid) Mri (1.5t) [facility] Work Phone: 04-16-2010 tetanus and diphther ia toxoids, not adsorbed, for adult use Gavin Otto MD Work Phone: [facility] Work Phone: 10-11-2001 Influenza Vaccine, unspecified formulation [facility] [place] 10-11-2001 influenza virus vaccine, unspecified formulation Rose Taylor PA-C Work Phone: [facility] 06-21-1996 Influenza Vaccine, unspecified formulation [facility] [place] 06-21-1996 influenza virus vaccine, unspecified formulation [facility] 06-21-1996 influenza, seasonal, injectable Gavin Otto MD Work Phone: [facility] Work Phone: Payers Date Payer Category Payer Self-pay 2022 Commercial Managed C are - HMO MMO [employer] [id number] 2022 Managed Care (Private) [id number] 2022 Unknown [id number]. [id number] 2022 Unknown [id number]. [id number] 2017 Private Health Insurance KWAME DE LA ROSA xxxxxxxxxx 2017-Present [phone] [facility] [address] [place] [address] xxxxxxxxxx [id number] 2014 Private Health Insurance [id number]. [id number] 2012 Private Health Insurance [facility] NON-HMO/CHOICE/CHOICE PLUS [id number] 2012-Present Indemnity [id number] 2012 Private Health Insurance [id number] 1966 Unknown [id number] 2.16.840.1.479781.3.579.2. 8 1966 Unknown [id number] 2.16.840.1.498721.3.579.2. 1966 Unknown [id number] 2.16.840.1.339012.3.579.2. 8 1966 Unknown [id number] 2.16.840.1.328734.3.579.2. 8 1966 Unknown [id number] 2.16.840.1.304816.3.579.2. 668 1966 Unknown [id number] 2.16.840.1.626078.3.579.2. 668 1966 Unknown [id number] 2.16.840.1.764970.3.579.2. 668 1966 Unknown [id number] 2.16.840.1.683909.3.579.2. 668 1966 Unknown [id number] 2.16.840.1.854208.3.579.2. 668 1966 Unknown [id number] 2.16.840.1.613273.3.579.2. 1069 1966 Unknown [id number] 2.16.840.1.479478.3.579.2. 356 1966 Unknown [id number] 2.16840.1.656793.3.579.2. 356 1966 Unknown [id number] 2.16.840.1.815093.3.579.2. 1245 1966 Unknown [id number] 2.16.840.1.266443.3.579.2. 1244 1966 Unknown [id number] 2.16840.1.069249.3.579.2. 1244 Unknown [id number] 2.16840.1.281653.3.579.2. 462 Unknown [id number] 2.16840.1.171689.3.579.2. 462 Unknown [id number] [id number]. 462 Unknown [id number]. 462 Social History Date Type Detail Facility Start: 10-24-2019 End: 07-17-2024 Tobacco smoking status NHIS Former smoker [place] Start: 08-28-1978 End: 08-28-1986 History of tobacco use Cigarette Sm[place] Start: 10-24-2019 End: 09-19-2024 Alcohol intake Current non-drinker of alcohol (finding) [employer] Phone: Start: 05-11-2017 Tobacco Comment quit as teen [employer] [facility] Start: 1965 Sex Assigned At Not on file [employer] [facility] Start: 11-03-2014 End: 10-30-2024 Tobacco smoking status [facility] Work Phone: Start: 06-11-2020 End: 10-30-2024 Tobacco use and exposure Never used [employer] [facility] Start: 05-03-2019 End: 03-26-2024 Alcohol intake No [employer] [facility] Start: 05-15-2022 End: 10-30-2024 Exposure to SARS-CoV-2 (event) Not sure [facility] Start: 1965 Sex Assigned At Female [facility] Start: 08-28-1978 End: 08-28-1986 History of tobacco use Current smoker [employer] Phone: Start: 04-28-2022 History SDOH Alcohol Frequency 1 [employer] Phone: Start: 04-28-2022 History SDOH Social Connections Phone 5 [employer] Phone: Start: 04-28-2022 History SDOH Social Connections Membership 2 [employer] Phone: Start: 04-28-2022 History SDOH Social Connections Living 3 [employer] Phone: Start: 04-28-2022 History SDOH Physical Activity DPW 7 [employer] Phone: Start: 04-28-2022 History SDOH Physical Activity MPS 6 [employer] Phone: Start: 04-29-2022 End: 03-26-2024 Cigarettes smoked current (pack per day) - Reported [address] [facility] Start: 07-23-2022 Adolescent depression screening assessment 2 [facility] Start: 06-17-2022 Gender identity Identifies as female gender (finding) [facility] Start: 06-17-2022 Sexual orientation Heterosexual (finding) [facility] Tobacco smoking stat [facility] Work Phone: (I/We) worried igor er (my/our) food would run out before (I/we) got money to buy more. Never true [employer] Start: 03-28-2022 Sex Female (finding) [employer] Goals Date Patient Goal Desired Activity /State Personal health goal Comment on above: I will increase my a ctivity by engaging in walking for 60 minute 3 times a week Minutes per exercise session - 60 Barriers: impairment: physical: pain level on the certain day Plan for overcoming my barriers: goal is set to 3 times a week to allow less exercise on days pain is much worse. Confidence: 04/06 Anticipated Goal Completion Date: next visit Formatting of this n ote might be different from the original. I will increase my activity by engaging in walking for 60 minute 3 times a week Minutes per exercise session - 60 Barriers: impairment: physical: pain level on the certain day Plan for overcoming my barriers: goal is set to 3 times a week to allow less exercise on days pain is much worse. Confidence: 04/06 Anticipated Goal Completion Date: next visit Clinical Notes 05-25-2022 to 04-22-2025 Telephone Encounter - Jill Brady RN - 04/22/2025 12:26 PM EDTTelephone Encounter - Jill Brady RN - 04/22/2025 12:26 PM EDTTelephone Encounter - Suri Min RN - 04/22/2025 10:21 AM EDT Note Date & Type Note Facility 04-22-2025 Telephone encounter Note Call placed to pharmacy and spoke with pharmacy grad intern. They are unable to submit the refill to insurasnce as it is too soon. They are unable to see if there was a PA approval until pt is due for next refill. cd technician stated they would call office if there is an issue when pharmacy is filling the next script. [facility] [employer] 04-22-2025 Miscellaneous Notes Call placed to pharmacy and spoke with pharmacy grad intern. They are unable to submit the refill to insurasnce as it is too soon. They are unable to see if there was a PA approval until pt is due for next refill. cd technician stated they would call office if there is an issue when pharmacy is filling the next script. Spoke with PharmD Please have the pharmacist re-run the medication as there is electronic documentation of approval of PA completed 04/18/25 that runs through 03/18/25 to 04/18/2026 Approved 04/18/2025 11:53 AM Appeal supported: No Note from payer: CaseId:[id number];Status:Approved;Rev iew Type:Prior Auth;Coverage Start Date:03/18/2025;Coverage End Date:04/18/2026; Payer: [facility] - Commercial Case ID: [id number] Spoke with [facility] pharmacy. Patient paid out of pocket for a 15 day supply on 04/17/25. This was $360 out of pocket. Patient will need a new script to cover the last 15 days as they had to waste it to fill those 15 days. They do need a prior auth. Pharmacy states that it needs to be a fci prior auth to cover the full year of prescriptions. Please advise. Please call pharmacy to confirm PA that was approved and patient is able to get medications when due as our office keeps getting paperwork from CoverMyMeds to complete PA Medication(s) refilled: Requested Prescriptions Signed Prescriptions Disp Refills fentaNYL (Duragesic) 62.5 MCG/HR 10 patch 0 Sig: Place 1 patch on the skin Every 72 hours. Do not start before April 30, 2025. Authorizing Provider: NIECY ADDISON imipramine (Tofranil-PM) 100 MG capsule 90 capsule 1 Sig: Take 1 capsule (100 mg) by mouth Nightly. Authorizing Provider: NIECY ADDISON DO 04/21/2025 4:41 PM Ordering provider: Niecy Addison DO Date of last office visit: 03/13/25 Date of next office visit: 06/04/2025 Niecy Addison [facility] Updated/Validated preferred pharmacy: Yes [id number] - [place], [place] - [address] Patient instructed to contact the pharmacy prior to picking up the medication: Yes Spouse states that due to the Prior Authorization and partial/temporary refill; the full 30-day was voided at the pharmacy (1) Medication name: fentaNYL (Duragesic) 62.5 MCG/HR Medication dosage: fentaNYL (Duragesic) 62.5 MCG/HR Monthly quantity needed: 10 patch (30 day supply) How many day supply requestin days Medication route: Transdermal Medication administration time(s): Sig: Place 1 patch on the skin Every 72 hours. If taking medication PRN, reason for taking medication: N/A If this is a controlled substance do you receive this or any other controlled medication from any other doctor or facility: No Date of last refill (see medication tab): 04/13/25 (2) Medication name: imipramine (Tofranil-PM) 100 MG capsule Medication dosage: imipramine (Tofranil-PM) 100 MG capsule Monthly quantity needed: 30 How many day supply requestin days Medication route: oral (PO) Medication administration time(s): bedtime (HS) If taking medication PRN, reason for taking medication: N/A If this is a controlled substance do you receive this or any other controlled medication from any other doctor or facility: no Date of last refill (see medication tab): 01/13/25 documented in this encounter [facility] 04-22-2025 Telephone encounter Note Spoke with PharmD Please have the pharmacist re-run the medication as there is electronic documentation of approval of PA completed 04/18/25 that runs through 03/18/25 to 04/18/2026 Approved 04/18/2025 11:53 AM Appeal supported: No Note from payer: CaseId:[id number];Status:Approved;Rev iew Type:Prior Auth;Coverage Start Date:03/18/2025;Coverage End Date:04/18/2026; Payer: [facility] - Commercial Case ID: [id number] [employer] 04-22-2025 Telephone encounter Note Spoke with [facility] pharmacy. Patient paid out of pocket for a 15 day supply on 04/17/25. This was $360 out of pocket. Patient will need a new script to cover the last 15 days as they had to waste it to fill those 15 days. They do need a prior auth. Pharmacy states that it needs to be a psychiatry instructor prior auth to cover the full year of prescriptions. Please advise. [employer] 04-22-2025 Telephone encounter Note Please call pharmacy to confirm PA that was approved and patient is able to get medications when due as our office keeps getting paperwork from CoverMyMeds to complete PA [employer] 04-21-2025 Telephone encounter Note Medication(s) refilled: Requested Prescriptions Signed Prescriptions Disp Refills fentaNYL (Duragesic) 62.5 MCG/HR 10 patch 0 Sig: Place 1 patch on the skin Every 72 hours. Do not start before April 30, 2025. Authorizing Provider: NIECY ADDISON imipramine (Tofranil-PM) 100 MG capsule 90 capsule 1 Sig: Take 1 capsule (100 mg) by mouth Nightly. Authorizing Provider: NIECY ADDISON DO 04/21/2025 4:41 PM [employer] 04-21-2025 Telephone encounter Note Ordering provider: Niecy Addison DO Date of last office visit: 03/13/25 Date of next office visit: 06/04/2025 Niecy Addison [facility] Updated/Validated preferred pharmacy: Yes [id number] - [place], [place] - [address] Patient instructed to contact the pharmacy prior to picking up the medication: Yes Spouse states that due to the Prior Authorization and partial/temporary refill; the full 30-day was voided at the pharmacy (1) Medication name: fentaNYL (Duragesic) 62.5 MCG/HR Medication dosage: fentaNYL (Duragesic) 62.5 MCG/HR Monthly quantity needed: 10 patch (30 day supply) How many day supply requestin days Medication route: Transdermal Medication administration time(s): Sig: Place 1 patch on the skin Every 72 hours. If taking medication PRN, reason for taking medication: N/A If this is a controlled substance do you receive this or any other controlled medication from any other doctor or facility: No Date of last refill (see medication tab): 04/13/25 (2) Medication name: imipramine (Tofranil-PM) 100 MG capsule Medication dosage: imipramine (Tofranil-PM) 100 MG capsule Monthly quantity needed: 30 How many day supply requestin days Medication route: oral (PO) Medication administration time(s): bedtime (HS) If taking medication PRN, reason for taking medication: N/A If this is a controlled substance do you receive this or any other controlled medication from any other doctor or facility: no Date of last refill (see medication tab): 01/13/25 . [facility] [employer] 03-13-2025 Evaluation + Plan note Associated Problem(s): Chronic painful diabetic neuropathy (CMS/HCC) (HCC) Controlled After addressing medication(s) compliance, adverse effects, and efficacy of treatment(s), medications for this controlled chronic condition will be continued. Ok to order repeat UDS next visit or defer - has been concordant in past without issues Orders: fentaNYL (Duragesic) 62.5 MCG/HR; Place 1 patch on the skin Every 72 hours. Do not start before March 14, 2025. fentaNYL (Duragesic) 62.5 MCG/HR; Place 1 patch on the skin Every 72 hours. Do not start before April 13, 2025. fentaNYL (Duragesic) 62.5 MCG/HR; Place 1 patch on the skin Every 72 hours. Do not start before May 13, 2025. gabapentin (Neurontin) 400 MG capsule; Take 1 capsule (400 mg) by mouth 2 times daily. [employer] 03-13-2025 Evaluation + Plan note Associated Problem(s): Acute on chronic renal insufficiency Chronic, uncontrolled Discussed to decrease Gabapentin to 400 mg every day (instead of BID) given recent KATE - may do ok on lower dose TBD Increase fluid intake Will need repeat BMP in the next few days to reassess - if she has a nephrology appointment next week then will let specialist order blood work - she will let me know via MyChart [employer] 03-13-2025 History of Present illness Narrative Images from the original note were not included. Prechart note: (the following data was documented before the visit began) Rooming: vv Possible agenda: LTOT Provider notes: go over labs - KATE? No microalbuminuria Next appt 06/12/25 Multidisciplinary team needs: Health Maintenance to be addressed today: CRC - cologuard ? 8/25 [place] Medicaid Search by Drug Name [place] Medicaid Drug List Health Maintenance Due Topic Date Due Diabetes: Celiac Disease Screening Never done Colorectal Cancer Screening Never done MMR Vaccines (1 of 1 - Standard series) Never done Diabetes: Foot Exam Never done Diabetes: Dental Exam Never done Mammogram Never done COVID-19 Vaccine ( season) 2024 Depression Monitoring 03/18/2025 (end precharting)- [facility] - [address] [facility] [id number] Dept: [phone] Dept Loc: [phone] Patient was seen today via Telehealth by agreement and consent. I used the following Telehealth technology: Audio and video capabilities. Patient location: Patient Location: Home. This patient encounter is appropriate and reasonable under the circumstances: transportation issues . The patient has been advised of the potential risks and limitations of this mode of treatment (including but not limited to the absence of in-person examination) and has agreed to be treated in a remote fashion in spite of them. Any and all of the patient's/patient's family's questions on this issue have been answered and I have made no promises or guarantees to the patient. The patient has also been advised to contact this office for worsening conditions or problems, and seek emergency medical treatment and/or call 911 if the patient deems either necessary. The patient stated that they are currently in the state [facility]. If the patient is a minor, permission has been obtained by the parent or guardian for the patient to receive medical care at this visit. Assessment/Plan Assessment & Plan Chronic painful diabetic neuropathy (CMS/HCC) (HCC) Controlled After addressing medication(s) compliance, adverse effects, and efficacy of treatment(s), medications for this controlled chronic condition will be continued. Ok to order repeat UDS next visit or defer - has been concordant in past without issues Orders: fentaNYL (Duragesic) 62.5 MCG/HR; Place 1 patch on the skin Every 72 hours. Do not start before March 14, 2025. fentaNYL (Duragesic) 62.5 MCG/HR; Place 1 patch on the skin Every 72 hours. Do not start before April 13, 2025. fentaNYL (Duragesic) 62.5 MCG/HR; Place 1 patch on the skin Every 72 hours. Do not start before May 13, 2025. gabapentin (Neurontin) 400 MG capsule; Take 1 capsule (400 mg) by mouth 2 times daily. Acute on chronic renal insufficiency Chronic, uncontrolled Discussed to decrease Gabapentin to 400 mg every day (instead of BID) given recent KATE - may do ok on lower dose TBD Increase fluid intake Will need repeat BMP in the next few days to reassess - if she has a nephrology appointment next week then will let specialist order blood work - she will let me know via [employer] Screen for colon cancer 2023 order will - reminded patient to do this BIMAL Orders: Cologuard colon cancer screening Health Maintenance Due Topic Diabetes: Celiac Disease Screening Colorectal Cancer Screening MMR Vaccines (1 of 1 - Standard series) Diabetes: Foot Exam Diabetes: Dental Exam Mammogram COVID-19 Vaccine () Depression Monitoring Follow Up: Follow up in about 12 weeks (around 06/05/2025) for LTOT, for Telehealth, with PCP or Pod provider. Niecy Addison DO 03/13/25 9:13 AM Subjective Jael Benson is a 59 y.o. who presents for a telehealth visit. Reason for visit/Primary concern: Chief Complaint Patient presents with Chronic Pain HPI RE: labs Has not been on anything new OTC other than some melatonin Has not had any dosing changes for prescription medications Already called nephrology office yesterday since got notified about abnormality - waiting to hear back and to get appointment Controlled Substances Monitoring: PDMP reviewed: Niecy Addison DO on 03/13/2025 9:25 AM [facility] PAIN MANAGEMENT DRUG PANEL Date Value Ref Range Status 03/16/2022 NEGATIVE NA Final No results found for: TRAMADOLUR Last pain management panel concordant: Yes Rationale for use of opioid: To treat moderate or severe pain and functional impairment caused by diagnosis of diabetic neuropathy Patient did not receive adequate pain control/function with 2 non-opioid treatments including: adjuvant anticonvulsants and adjuvantantidepressants at maximum tolerated doses, or Physical therapy Specialist referral and recommendation: endocrine, pain management (multiple) Opioid prescribed to treat non-cancer/non-malignant pain outside of active cancer treatment, palliative care, end of life/hospice care, sickle cell, severe burn, traumatic crushing of tissue, amputation, major orthopedic surgery. This short-acting opioid is prescribed after confirmation of the following; This patient is not opioid-naive.This patient has received opioid medications for at least 7 days prior to this prescription. An opioid agreement is recorded in the electronic record and confirms discussion of the benefits and risks of opioid therapy. RED FLAGS: Forging or altering a prescription: No Using another person's pain or scheduled medication: No Illegal drugs, including THC, in PNM: No Controlled drugs not prescribed by this office in PNM: No Intoxication: No Overdose: No Legal problems related to controlled substances: No Behavior that threatens staff or physician: No Accident motor vehicle crash: No PAIN ROS How is the pain medication helping your function: much improved: ambulation, bathing and hygiene, grooming, toileting, and dressing Are you having any sleepiness: No Are you having any constipation: No Are you having any mental slowing: No Are you having any sexual dysfunction: No PEG 1 (painon average in the past week with medications): 6 PEG 2 (pain interference with enjoyment of life): 1 PEG 3 (pain interference with normal activity): 1 SELF MANAGEMENT: The patient is interested in this area of self management: Meaningful life activities (familly, household responsibilities, work) One day off on patch since fell off when was swimming and was sweating a lot when working in yard - past Monday Put patch on that day instead of when due the following Monday Allergies[1] Review of Systems [] Problem list and/or medical history reviewed/updated as appropriate [] Medication list reviewed/updated [] Allergies reviewed/updated Last 3 PHQ-9 Scores No data found in the last 10 encounters. N/A Last 3 JUVE-7 Scores No data found in the last 10 encounters. N/A PHQ-2/9 Objective (if obtainable) Physical Exam Constitutional: General: She is not in acute distress. Appearance: Normal appearance. HENT: Head: Normocephalic. Eyes: Extraocular Movements: Extraocular movements intact. Conjunctiva/sclera: Conjunctivae normal. Pulmonary: Effort: Pulmonary effort is normal. No respiratory distress. Neurological: General: No focal deficit present. Mental Status: She is alert. Mental status is at baseline. Psychiatric: Mood and Affect: Mood normal. Behavior: Behavior normal. Thought Content: Thought content normal. Judgment: Judgment normal. [1] Allergies Allergen Reactions Oxycodone Anxiety and Other Severe insomnia Other reaction(s): Other (See Comments), Other (See Comments) Levofloxacin Other reaction(s): Other (See Comments), Other: See Comments insomnia insomnia Other reaction(s): anxious, Other (See Comments), Other: See Comments Diphenhydramine Other reaction(s): Agitation, Hyperactivity hyper Other reaction(s): Agitation, Other Elavil [Amitriptyline] Other Weight gain Iodinated Contrast Media Other reaction(s): Vomiting Metoclopramide Other Other reaction(s): Hyperactivity, Intolerance reglan hyper Other reaction(s): Intolerance, Other, Other (See Comments) Nitrofurantoin Other reaction(s): Intolerance macrobid Other reaction(s): Other (See Comments) Phenothiazines Other reaction(s): Hyperactivity, Intolerance compazine hyper Other reaction(s): Intolerance, Other documented in this encounter [facility] 03-13-2025 Miscellaneous Notes Associated Problem(s): Chronic painful diabetic neuropathy (CMS/HCC) (HCC) Controlled After addressing medication(s) compliance, adverse effects, and efficacy of treatment(s), medications for this controlled chronic condition will be continued. Ok to order repeat UDS next visit or defer - has been concordant in past without issues Orders: fentaNYL (Duragesic) 62.5 MCG/HR; Place 1 patch on the skin Every 72 hours. Do not start before March 14, 2025. fentaNYL (Duragesic) 62.5 MCG/HR; Place 1 patch on the skin Every 72 hours. Do not start before April 13, 2025. fentaNYL (Duragesic) 62.5 MCG/HR; Place 1 patch on the skin Every 72 hours. Do not start before May 13, 2025. gabapentin (Neurontin) 400 MG capsule; Take 1 capsule (400 mg) by mouth 2 times daily. Associated Problem(s): Acute on chronic renal insufficiency Chronic, uncontrolled Discussed to decrease Gabapentin to 400 mg every day (instead of BID) given recent KATE - may do ok on lower dose TBD Increase fluid intake Will need repeat BMP in the next few days to reassess - if she has a nephrology appointment next week then will let specialist order blood work - she will let me know via MyChart Addended by: NIECY ADDISON on: 03/13/2025 10:01 AM Modules accepted: Orders documented in this encounter [facility] 03-13-2025 Note Addended by: NIECY ADDISON on: 03/13/2025 10:01 AM Modules accepted: Orders [facility] 03-13-2025 Note Addended by: NIECY ADDISON on: 03/13/2025 10:01 AM Modules accepted: Orders [facility] 02-20-2025 Telephone encounter Note PA filled out and in outgoing fax box [facility] 02-20-2025 Miscellaneous Notes PA filled out and in outgoing fax box Please call pharmacy to check on status of PA - I have not had any further contact with insurance company re: electronic PA that was submitted Call made to patient and message released. Patient stated understanding. No further needs at this time I just initiated the PA and am awaiting insurance decision - as per [employer] Message to patient If unable to get authorized, patient may pay [id number] for 1 or more patches to avoid withdrawal S: Patient's spoke with CAC nurse regarding pain patch B: fentaNYL (Duragesic) 62.5 MCG/HR A: States patient is going to run out of patches today, states they need a PA done By the end of the day because she will withdraw if she does not get this filled today. also asking if she cannot get them filled today what option does she have to avoid withdraw. asking for someone to call him back by the end of the day R: Message to Provider Reason for Disposition Caller requesting a CONTROLLED substance prescription refill (e.g., narcotics, ADHD medicines) Protocols used: Medication Refill and Renewal [id number] documented in this encounter [employer] 02-20-2025 Telephone encounter Note Please call pharmacy to check on status of PA - I have not had any further contact with insurance company re: electronic PA that was submitted [facility] [employer] 02-17-2025 Telephone encounter Note Call made to patient and message released. Patient stated understanding. No further needs at this time [facility] 02-17-2025 Telephone encounter Note I just initiated the PA and am awaiting insurance decision - as per [employer] Message to patient If unable to get authorized, patient may pay [id number] for 1 or more patches to avoid withdrawal [facility] 02-17-2025 Telephone encounter Note S: Patient's spoke with CAC nurse regarding pain patch B: fentaNYL (Duragesic) 62.5 MCG/HR A: States patient is going to run out of patches today, states they need a PA done By the end of the day because she will withdraw if she does not get this filled today. also asking if she cannot get them filled today what option does she have to avoid withdraw. asking for someone to call him back by the end of the day R: Message to Provider Reason for Disposition Caller requesting a CONTROLLED substance prescription refill (e.g., narcotics, ADHD medicines) Protocols used: Medication Refill and Renewal [id number] [facility] 01-13-2025 Telephone encounter Note Past 14 days Signed 2 weeks ago (12/30/2024): [facility] 01-13-2025 Miscellaneous Notes Past 14 days Signed 2 weeks ago (12/30/2024): documented in this encounter [facility] 12-30-2024 Telephone encounter Note Refills already sent to pharmacy [facility] 12-30-2024 Miscellaneous Notes Refills already sent to pharmacy S: Patient called the clinical access center requesting refills B: Refill request for gabapentin and Tofranil A: Refill requests have been pended in a previous encounter. He is aware controlled substance cannot be refilled on the weekend . R: message sent to office . Patient instructed to call back with worsening symptoms, concerns or questions. Reason for Disposition Caller requesting a CONTROLLED substance prescription refill (e.g., narcotics, ADHD medicines) Protocols used: Medication Refill and Renewal [id number] documented in this encounter [facility] 12-30-2024 Telephone encounter Note Name of caller: Jael Contact phone number: [phone] Relationship to Patient: patient Provider: Azael Practice: [facility] Chief Complaint/Reason for Call: Patient states at her last appointment, it was discussed that her imipramine (Tofranil) was going to be split up into 2 different prescriptions: imipramine 100 mg tablet nightly imipramine (Tofranil) 50 MG tablet PRN Patient asking refills be sent to [id number] in [place]. Please advise. Best time of day caller can be reached: any Patient advised that office/PCP has 24-48 business hours to return their call: Yes- please notify patient via [employer] when sent [facility] 12-30-2024 Miscellaneous Notes Name of caller: Jael Contact phone number: [phone] Relationship to Patient: patient Provider: Azael Practice: [facility] Chief Complaint/Reason for Call: Patient states at her last appointment, it was discussed that her imipramine (Tofranil) was going to be split up into 2 different prescriptions: imipramine 100 mg tablet nightly imipramine (Tofranil) 50 MG tablet PRN Patient asking refills be sent to [id number] in [place]. Please advise. Best time of day caller can be reached: any Patient advised that office/PCP has 24-48 business hours to return their call: Yes- please notify patient via TransitScreenhart when sent Patient out of medication. Medication name: gabapentin (Neurontin) 400 MG capsule Medication dosage: 400 MG Monthly quantity needed: 60 How many day supply requestin days Medication route: oral (PO) Medication administration time(s): 2 times a day (BID) If taking medication PRN, reason for taking medication: N/A If this is a controlled substance do you receive this or any other controlled medication from any other doctor or facility: No Ordering provider: Adela Date of last office visit: 12/10/24 Date of next office visit: 03/13/25 Date of last refill: (see medication tab): 09/30/24 Updated/Validated preferred pharmacy: Yes- [id number] Patient instructed to contact the pharmacy prior to picking up the medication: Yes Chart reviewed for compliance with [facility] refill guidelines. Screening criteria met. Last appointment 12/10/24. Next appointment 03/13/25. Last labs . Please review and send prescription as appropriate. If no future appointment noted, the last office visit notes were reviewed to determine follow-up time frame and this note forwarded to front end developer designer to schedule. documented in this encounter [facility] 12-30-2024 Telephone encounter Note Patient out of medication. Medication name: gabapentin (Neurontin) 400 MG capsule Medication dosage: 400 MG Monthly quantity needed: 60 How many day supply requestin days Medication route: oral (PO) Medication administration time(s): 2 times a day (BID) If taking medication PRN, reason for taking medication: N/A If this is a controlled substance do you receive this or any other controlled medication from any other doctor or facility: No Ordering provider: Adela Date of last office visit: 12/10/24 Date of next office visit: 03/13/25 Date of last refill: (see medication tab): 09/30/24 Updated/Validated preferred pharmacy: Yes- [id number] - [place] - [address] [facility] Patient instructed to contact the pharmacy prior to picking up the medication: Yes [facility] 12-30-2024 Telephone encounter Note Chart reviewed for compliance with [facility] refill guidelines. Screening criteria met. Last appointment 12/10/24. Next appointment 03/13/25. Last labs . Please review and send prescription as appropriate. If no future appointment noted, the last office visit notes were reviewed to determine follow-up time frame and this note forwarded to front end developer designer to schedule. [facility] 12-28-2024 Telephone encounter Note S: Patient called the clinical access center requesting refills B: Refill request for gabapentin and Tofranil A: Refill requests have been pended in a previous encounter. He is aware controlled substance cannot be refilled on the weekend . R: message sent to office . Patient instructed to call back with worsening symptoms, concerns or questions. Reason for Disposition Caller requesting a CONTROLLED substance prescription refill (e.g., narcotics, ADHD medicines) Protocols used: Medication Refill and Renewal [id number] [facility] 12-17-2024 Telephone encounter Note Images from the original note were not included. Most recent Endocrinology visit: Last encounter Visit on 07/17/2024 (with Fern Flowers) [facility] with FERN JACKSON for Type 1 diabetes mellitus with diabetic polyneuropathy (HCC) 07/17/2024 in ENDO MAIN with FERN JACKSON for Type 1 diabetes mellitus with diabetic polyneuropathy (HCC) No future appt scheduled in ENDO. Please route to local appt/scheduling pool if appt is needed? Requested Prescriptions Pending Prescriptions Disp Refills insulin lispro (HUMALOG U-100 INSULIN) 100 unit/mL injection [Pharmacy Med Name: HUMALOG VIAL 10ML 100U/ML] 90 mL 3 Sig: INJECT UNDER THE SKIN DIRECTED IN INSULIN PUMP UP TO 100 UNITS DAILY Latest Ref Rng & Units 07/17/2024 11/10/2022 05/03/2016 Hemoglobin A1C Hemoglobin A1C 4.3 - 5.6 % 6.9 6.8 Hemoglobin A1C (POCT) 4.3 - 5.6 % 6.3 This result is from an external source. TSH: None on file in the last 12 months Free T3: None on file in the last 12 months Free T4: None on file in the last 12 months Thyroglobulin: None on file in the last 12 months Vitamin D: None on file in the last 12 months Hematocrit: None on file in the last 12 months Creatinine: None on file in the last 12 months eGFR: None on file in the last 12 months Potassium: None on file in the last 12 months Testosterone: None on file in the last 12 months IGF: None on file in the last 12 months Prolactin: None on file in the last [address] [facility] 12-17-2024 Miscellaneous Notes Images from the original note were not included. Most recent Endocrinology visit: Last encounter Visit on 07/17/2024 (with Fern Flowers) 12/08/2023 in ENDO MAIN with FERN JACKSON for Type 1 diabetes mellitus with diabetic polyneuropathy (HCC) 07/17/2024 in ENDO MAIN with FERN JACKSON for Type 1 diabetes mellitus with diabetic polyneuropathy (HCC) No future appt scheduled in ENDO. Please route to local appt/scheduling pool if appt is needed? Requested Prescriptions Pending Prescriptions Disp Refills insulin lispro (HUMALOG U-100 INSULIN) 100 unit/mL injection [Pharmacy Med Name: HUMALOG VIAL 10ML 100U/ML] 90 mL 3 Sig: INJECT UNDER THE SKIN DIRECTED IN INSULIN PUMP UP TO 100 UNITS DAILY Latest Ref Rng & Units 07/17/2024 11/10/2022 05/03/2016 Hemoglobin A1C Hemoglobin A1C 4.3 - 5.6 % 6.9 6.8 Hemoglobin A1C (POCT) 4.3 - 5.6 % 6.3 This result is from an external source. TSH: None on file in the last 12 months Free T3: None on file in the last 12 months Free T4: None on file in the last 12 months Thyroglobulin: None on file in the last 12 months Vitamin D: None on file in the last 12 months Hematocrit: None on file in the last 12 months Creatinine: None on file in the last 12 months eGFR: None on file in the last 12 months Potassium: None on file in the last 12 months Testosterone: None on file in the last 12 months IGF: None on file in the last 12 months Prolactin: None on file in the last 12 months documented in this encounter [facility] 12-10-2024 Evaluation + Plan note Associated Problem(s): Microalbuminuria Recheck urine to confirm previous abnormality Currently on ARB [facility] 12-10-2024 Miscellaneous Notes Associated Problem(s): Microalbuminuria Recheck urine to confirm previous abnormality Currently on ARB Associated Problem(s): Insomnia Overall controlled on Imipramine 100 mg but having to occasionally take an extra 50 mg Will send PRN refill to pharmacy She will let me know via Sportmeetshart if having to use extra 50 mg more frequently in the week/month Associated Problem(s): Chronic painful diabetic neuropathy (CMS/HCC) (HCC) Controlled After addressing medication(s) compliance, adverse effects, and efficacy of treatment(s), medications for this controlled chronic condition will be continued. UDS ordered documented in this encounter [facility] 12-10-2024 Miscellaneous Notes Associated Problem(s): Microalbuminuria Recheck urine to confirm previous abnormality Currently on ARB Associated Problem(s): Insomnia Overall controlled on Imipramine 100 mg but having to occasionally take an extra 50 mg Will send PRN refill to pharmacy She will let me know via MyChart if having to use extra 50 mg more frequently in the week/month Associated Problem(s): Chronic painful diabetic neuropathy (CMS/HCC) (HCC) Controlled After addressing medication(s) compliance, adverse effects, and efficacy of treatment(s), medications for this controlled chronic condition will be continued. UDS ordered Addended by: PAT ALEJANDRE on: 03/11/2025 04:25 PM Modules accepted: Orders documented in this encounter [facility] 12-10-2024 Evaluation + Plan note Associated Problem(s): Insomnia Overall controlled on Imipramine 100 mg but having to occasionally take an extra 50 mg Will send PRN refill to pharmacy She will let me know via MyChart if having to use extra 50 mg more frequently in the week/month [facility] 04-15-2025 Evaluation + Plan note Associated Problem(s): Chronic painful diabetic neuropathy (CMS/HCC) (HCC) Controlled After addressing medication(s) compliance, adverse effects, and efficacy of treatment(s), medications for this controlled chronic condition will be continued. UDS ordered [facility] 12-10-2024 History of Present illness Narrative Images from the original note were not included. Prechart note: (the following data was documented before the visit began) Rooming: vv Possible agenda: Provider notes: next LTOT 03/13/25; urine ordered On Imipramine 100 mg (2-50mg) - ok? Multidisciplinary team needs: Health Maintenance to be addressed today: mammo; CRC, labs - endo not ordering TSH, CMP, lipid? [place] Medicaid Search by Drug Name [place] Medicaid Drug List Health Maintenance Due Topic Date Due Diabetes: Celiac Disease Screening Never done Colorectal Cancer Screening Never done MMR Vaccines (1 of 1 - Standard series) Never done Diabetes: Foot Exam Never done Diabetes: Dental Exam Never done Mammogram Never done COVID-19 Vaccine ( season) 2024 Diabetes: Estimated Glomerular Filtration Rate for Kidney Health 09/21/2024 Lipid Panel 09/21/2024 (end precharting)- [facility] [place] - [address] [facility] [address] Dept: [phone] Dept Loc: [phone] Patient was seen today via Telehealth by agreement and consent. I used the following Telehealth technology: Audio and video capabilities. Patient location: [place] Patient Location: Home. This patient encounter is appropriate and reasonable under the circumstances: Behavioral Health . The patient has been advised of the potential risks and limitations of this mode of treatment (including but not limited to the absence of in-person examination) and has agreed to be treated in a remote fashion in spite of them. Any and all of the patient's/patient's family's questions on this issue have been answered and I have made no promises or guarantees to the patient. The patient has also been advised to contact this office for worsening conditions or problems, and seek emergency medical treatment and/or call 911 if the patient deems either necessary. The patient stated that they are currently in the state [facility]. If the patient is a minor, permission has been obtained by the parent or guardian for the patient to receive medical care at this visit. Assessment/Plan 1. Chronic painful diabetic neuropathy (CMS/HCC) (HCC) Assessment & Plan: Controlled After addressing medication(s) compliance, adverse effects, and efficacy of treatment(s), medications for this controlled chronic condition will be continued. UDS ordered Orders: - fentaNYL (Duragesic) 62.5 MCG/HR; Place 1 patch on the skin Every 72 hours. Do not start before December 17, 2024., Starting 12/17/2024, Until Zahraa 01/16/2025, Normal - fentaNYL (Duragesic) 62.5 MCG/HR; Place 1 patch on the skin Every 72 hours. Do not start before January 16, 2025., Starting Zahraa 01/16/2025, Until 02/15/2025, Normal - fentaNYL (Duragesic) 62.5 MCG/HR; Place 1 patch on the skin Every 72 hours. Do not start before February 15, 2025., Starting 02/15/2025, Until 03/17/2025, Normal - PAIN MANAGEMENT PANEL - Fentanyl, urine - Comprehensive metabolic panel 2. Psychophysiological insomnia Assessment & Plan: Overall controlled on Imipramine 100 mg but having to occasionally take an extra 50 mg Will send PRN refill to pharmacy She will let me know via Sportmeetshart if having to use extra 50 mg more frequently in the week/month Orders: - Comprehensive metabolic panel 3. Microalbuminuria Assessment & Plan: Recheck urine to confirm previous abnormality Currently on ARB Orders: - Microalbumin / creatinine urine ratio 4. 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 - PAIN MANAGEMENT PANEL - Fentanyl, urine 5. Screening cholesterol level - Lipid panel 6. Encounter for screening mammogram for malignant neoplasm of breast Comments: Reminded patient to schedule for mammogram BIMAL 7. Colon cancer screening Comments: Reminded patient to complete Cologuard BIMAL Health Maintenance Due Topic Diabetes: Celiac Disease Screening Colorectal Cancer Screening MMR Vaccines (1 of 1 - Standard series) Diabetes: Foot Exam Diabetes: Dental Exam Mammogram COVID-19 Vaccine (5 - 2024-25 season) Diabetes: Estimated Glomerular Filtration Rate for Kidney Health Lipid Panel Follow Up: Follow up in about 3 months (around 03/13/2025) for LTOT, for Telehealth, with PCP or Pod provider. Niecy Addison DO 12/10/24 1:17 PM Subjective Jael Benson is a 59 y.o. who presents for a telehealth visit. Reason for visit/Primary concern: Chief Complaint Patient presents with Chronic Pain HPI Follow up of: insomnia Medication(s) taking: imipramine Days in a week that patient misses dose of med(s): none Adverse effects of medication(s): No Takes two every night Sometimes has to take an extra - maybe due to being uncomfortable and/or anxiety Has done this twice in the last month Controlled Substances Monitoring: No data to display OARRs Reviewed. [employer] PAIN MANAGEMENT DRUG PANEL Date Value Ref Range Status 03/16/2022 NEGATIVE NA Final No results found for: TRAMADOLUR Last pain management panel concordant: Yes Rationale for use of opioid: To treat moderate or severe pain and functional impairment caused by diagnosis of diabetic neuropathy Patient did not receive adequate pain control/function with 2 non-opioid treatments including: adjuvant anticonvulsants and adjuvantantidepressants at maximum tolerated doses Specialist referral and recommendation: pain management, palliative consult Opioid prescribed to treat non-cancer/non-malignant pain outside of active cancer treatment, palliative care, end of life/hospice care, sickle cell, severe burn, traumatic crushing of tissue, amputation, major orthopedic surgery. This short-acting opioid is prescribed after confirmation of the following; This patient is not opioid-naive.This patient has received opioid medications for at least 7 days prior to this prescription. An opioid agreement is recorded in the electronic record and confirms discussion of the benefits and risks of opioid therapy. RED FLAGS: Forging or altering a prescription: No Using another person's pain or scheduled medication: No Illegal drugs, including THC, in PNM: No Controlled drugs not prescribed by this office in PNM: No Intoxication: No Overdose: No Legal problems related to controlled substances: No Behavior that threatens staff or physician: No Accident motor vehicle crash: No PAIN ROS How is the pain medication helping your function: improved: ambulation, bathing and hygiene, grooming, toileting, and dressing Are you having any sleepiness: No Are you having any constipation: No Are you having any mental slowing: No Are you having any sexual dysfunction: No PEG 1 (painon average in the past week with medications): 6 PEG 2 (pain interference with enjoyment of life): 1 PEG 3 (pain interference with normal activity): 1 SELF MANAGEMENT: The patient is interested in this area of self management: Meaningful life activities (familly, household responsibilities, work) Allergies Allergen Reactions Oxycodone Anxiety and Other Severe insomnia Other reaction(s): Other (See Comments), Other (See Comments) Levofloxacin Other reaction(s): Other (See Comments), Other: See Comments insomnia insomnia Other reaction(s): anxious, Other (See Comments), Other: See Comments Diphenhydramine Other reaction(s): Agitation, Hyperactivity hyper Other reaction(s): Agitation, Other Elavil [Amitriptyline] Other Weight gain Iodinated Contrast Media Other reaction(s): Vomiting Metoclopramide Other Other reaction(s): Hyperactivity, Intolerance reglan hyper Other reaction(s): Intolerance, Other, Other (See Comments) Nitrofurantoin Other reaction(s): Intolerance macrobid Other reaction(s): Other (See Comments) Phenothiazines Other reaction(s): Hyperactivity, Intolerance compazine hyper Other reaction(s): Intolerance, Other Review of Systems [] Problem list and/or medical history reviewed/updated as appropriate [] Medication list reviewed/updated [] Allergies reviewed/updated Last 3 PHQ-9 Scores No data found in the last 10 encounters. Last 3 JUVE-7 Scores No data found in the last 10 encounters. PHQ-2/9 Objective (if obtainable) Physical Exam Constitutional: General: She is not in acute distress. Appearance: Normal appearance. HENT: Head: Normocephalic. Pulmonary: Effort: Pulmonary effort is normal. No respiratory distress. Neurological: General: No focal deficit present. Mental Status: She is alert. Mental status is at baseline. Psychiatric: Mood and Affect: Mood normal. Behavior: Behavior normal. Thought Content: Thought content normal. Judgment: Judgment normal. documented in this encounter [facility] 12-10-2024 History of Present illness Narrative Images from the original note were not included. Prechart note: (the following data was documented before the visit began) Rooming: vv Possible agenda: Provider notes: next LTOT 03/13/25; urine ordered On Imipramine 100 mg (2-50mg) - ok? Multidisciplinary team needs: Health Maintenance to be addressed today: mammo; CRC, labs - endo not ordering TSH, CMP, lipid? [place] Search by Drug Name [place] Drug List Health Maintenance Due Topic Date Due Diabetes: Celiac Disease Screening Never done Colorectal Cancer Screening Never done MMR Vaccines (1 of 1 - Standard series) Never done Diabetes: Foot Exam Never done Diabetes: Dental Exam Never done Mammogram Never done COVID-19 Vaccine ( season) 2024 Diabetes: Estimated Glomerular Filtration Rate for Kidney Health 09/21/2024 Lipid Panel 09/21/2024 (end precharting)- [facility] - [address] [facility] [address] Dept: [phone] Dept Loc: [phone] Patient was seen today via Telehealth by agreement and consent. I used the following Telehealth technology: Audio and video capabilities. Patient location: [place] Patient Location: Home. This patient encounter is appropriate and reasonable under the circumstances: Behavioral Health . The patient has been advised of the potential risks and limitations of this mode of treatment (including but not limited to the absence of in-person examination) and has agreed to be treated in a remote fashion in spite of them. Any and all of the patient's/patient's family's questions on this issue have been answered and I have made no promises or guarantees to the patient. The patient has also been advised to contact this office for worsening conditions or problems, and seek emergency medical treatment and/or call 911 if the patient deems either necessary. The patient stated that they are currently in the state of [place]. If the patient is a minor, permission has been obtained by the parent or guardian for the patient to receive medical care at this visit. Assessment/Plan 1. Chronic painful diabetic neuropathy (CMS/HCC) (HCC) Assessment & Plan: Controlled After addressing medication(s) compliance, adverse effects, and efficacy of treatment(s), medications for this controlled chronic condition will be continued. UDS ordered Orders: - fentaNYL (Duragesic) 62.5 MCG/HR; Place 1 patch on the skin Every 72 hours. Do not start before December 17, 2024., Starting 12/17/2024, Until Zahraa 01/16/2025, Normal - fentaNYL (Duragesic) 62.5 MCG/HR; Place 1 patch on the skin Every 72 hours. Do not start before January 16, 2025., Starting Zahraa 01/16/2025, Until 02/15/2025, Normal - fentaNYL (Duragesic) 62.5 MCG/HR; Place 1 patch on the skin Every 72 hours. Do not start before February 15, 2025., Starting 02/15/2025, Until 03/17/2025, Normal - PAIN MANAGEMENT PANEL - Fentanyl, urine - Comprehensive metabolic panel 2. Psychophysiological insomnia Assessment & Plan: Overall controlled on Imipramine 100 mg but having to occasionally take an extra 50 mg Will send PRN refill to pharmacy She will let me know via Sportmeetshart if having to use extra 50 mg more frequently in the week/month Orders: - Comprehensive metabolic panel 3. Microalbuminuria Assessment & Plan: Recheck urine to confirm previous abnormality Currently on ARB Orders: - Microalbumin / creatinine urine ratio 4. 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 - PAIN MANAGEMENT PANEL - Fentanyl, urine 5. Screening cholesterol level - Lipid panel 6. Encounter for screening mammogram for malignant neoplasm of breast Comments: Reminded patient to schedule for mammogram BIMAL 7. Colon cancer screening Comments: Reminded patient to complete Cologuard BIMAL Health Maintenance Due Topic Diabetes: Celiac Disease Screening Colorectal Cancer Screening MMR Vaccines (1 of 1 - Standard series) Diabetes: Foot Exam Diabetes: Dental Exam Mammogram COVID-19 Vaccine () Diabetes: Estimated Glomerular Filtration Rate for Kidney Health Lipid Panel Follow Up: Follow up in about 3 months (around 03/13/2025) for LTOT, for Telehealth, with PCP or Pod provider. Niecy Addison DO 12/10/24 1:17 PM Subjective Jael Benson is a 59 y.o. who presents for a telehealth visit. Reason for visit/Primary concern: Chief Complaint Patient presents with Chronic Pain HPI Follow up of: insomnia Medication(s) taking: imipramine Days in a week that patient misses dose of med(s): none Adverse effects of medication(s): No Takes two every night Sometimes has to take an extra - maybe due to being uncomfortable and/or anxiety Has done this twice in the last month Controlled Substances Monitoring: No data to display OARRs Reviewed. [employer] PAIN MANAGEMENT DRUG PANEL Date Value Ref Range Status 03/16/2022 NEGATIVE NA Final No results found for: TRAMADOLUR Last pain management panel concordant: Yes Rationale for use of opioid: To treat moderate or severe pain and functional impairment caused by diagnosis of diabetic neuropathy Patient did not receive adequate pain control/function with 2 non-opioid treatments including: adjuvant anticonvulsants and adjuvantantidepressants at maximum tolerated doses Specialist referral and recommendation: pain management, palliative consult Opioid prescribed to treat non-cancer/non-malignant pain outside of active cancer treatment, palliative care, end of life/hospice care, sickle cell, severe burn, traumatic crushing of tissue, amputation, major orthopedic surgery. This short-acting opioid is prescribed after confirmation of the following; This patient is not opioid-naive.This patient has received opioid medications for at least 7 days prior to this prescription. An opioid agreement is recorded in the electronic record and confirms discussion of the benefits and risks of opioid therapy. RED FLAGS: Forging or altering a prescription: No Using another person's pain or scheduled medication: No Illegal drugs, including THC, in PNM: No Controlled drugs not prescribed by this office in PNM: No Intoxication: No Overdose: No Legal problems related to controlled substances: No Behavior that threatens staff or physician: No Accident motor vehicle crash: No PAIN ROS How is the pain medication helping your function: improved: ambulation, bathing and hygiene, grooming, toileting, and dressing Are you having any sleepiness: No Are you having any constipation: No Are you having any mental slowing: No Are you having any sexual dysfunction: No PEG 1 (painon average in the past week with medications): 6 PEG 2 (pain interference with enjoyment of life): 1 PEG 3 (pain interference with normal activity): 1 SELF MANAGEMENT: The patient is interested in this area of self management: Meaningful life activities (familly, household responsibilities, work) Allergies Allergen Reactions Oxycodone Anxiety and Other Severe insomnia Other reaction(s): Other (See Comments), Other (See Comments) Levofloxacin Other reaction(s): Other (See Comments), Other: See Comments insomnia insomnia Other reaction(s): anxious, Other (See Comments), Other: See Comments Diphenhydramine Other reaction(s): Agitation, Hyperactivity hyper Other reaction(s): Agitation, Other Elavil [Amitriptyline] Other Weight gain Iodinated Contrast Media Other reaction(s): Vomiting Metoclopramide Other Other reaction(s): Hyperactivity, Intolerance reglan hyper Other reaction(s): Intolerance, Other, Other (See Comments) Nitrofurantoin Other reaction(s): Intolerance macrobid Other reaction(s): Other (See Comments) Phenothiazines Other reaction(s): Hyperactivity, Intolerance compazine hyper Other reaction(s): Intolerance, Other Review of Systems [] Problem list and/or medical history reviewed/updated as appropriate [] Medication list reviewed/updated [] Allergies reviewed/updated Last 3 PHQ-9 Scores No data found in the last 10 encounters. Last 3 JUVE-7 Scores No data found in the last 10 encounters. PHQ-2/9 Objective (if obtainable) Physical Exam Constitutional: General: She is not in acute distress. Appearance: Normal appearance. HENT: Head: Normocephalic. Pulmonary: Effort: Pulmonary effort is normal. No respiratory distress. Neurological: General: No focal deficit present. Mental Status: She is alert. Mental status is at baseline. Psychiatric: Mood and Affect: Mood normal. Behavior: Behavior normal. Thought Content: Thought content normal. Judgment: Judgment normal. documented in this encounter [facility] 12-10-2024 Instructions Niecy Addison DO - 12/10/2024 1:00 PM EDT Please call [phone] to schedule an appointment for your mammogram. documented in this encounter [facility] 12-10-2024 Yodit Addison DO - 12/10/2024 1:00 PM EDT Please call [phone] to schedule an appointment for your mammogram. documented in this encounter [facility] 12-10-2024 Note Addended by: PAT ALEJANDRE on: 03/11/2025 04:25 PM Modules accepted: Orders [facility] 10-30-2024 History of Present illness Narrative Subjective Patient ID: Jael Benson is a 59 y.o. female. HPI Patient is here for yearly follow up for hx of recurrent UTI'S. No recent sx. Patient does CIC 4-5x. .She dos urinate on her own at times. She is taking Macrodantin MWF. Cysto 04/19 showed mild trabeculation. Review of Systems Constitutional: Negative for chills and fever. HENT: Negative. Eyes: Negative. Respiratory: Negative for cough and shortness of breath. Cardiovascular: Negative for chest pain and leg swelling. Gastrointestinal: Negative for nausea. Endocrine: Negative. Genitourinary: Negative for difficulty urinating. Negative except for documented in HPI Allergic/Immunologic: Negative. Neurological: Alert & oriented X 3 Hematological: Denies blood thinners Psychiatric/Behavioral: Negative. Objective Physical Exam Vitals and nursing note reviewed. Pulmonary: Effort: Pulmonary effort is normal. Abdominal: Palpations: Abdomen is soft. Tenderness: There is no abdominal tenderness. Genitourinary: Comments: Kidneys non palpable bilaterally Bladder non palpable or tender Neurological: Mental Status: She is alert. Assessment/Plan Diagnoses and all orders for this visit: Nocturia Urinary retention Neurogenic bladder Frequent UTI Past renal U/S reviewed and new U/S ordered Treatment options for LUTS reviewed CIC supplies refilled Discussed timed voiding. Discussed fluid and caffeine intake Lifestyle change to help prevent UTIs discussed. Encouraged fluid intake. UA reviewed Bactrim Rx given F/U 1 year with renal U/S documented in this encounter [facility] Work Phone: 09-30-2024 Telephone encounter Note Name of caller: Jael Contact phone number: [phone] Relationship to Patient: spouse/SO Provider: Dr. Addison Practice: [facility] [place] Chief Complaint/Reason for Call: Jael called in to check on the status of this request. Per Jael he is concerned about the patient going without her medication sine he was advised that Dr. Addison would be out of the office. I advised him that someone else will cover for her while she is out. Pleas follow up to advise. Best time of day caller can be reached: any Patient advised that office/PCP has 24-48 business hours to return their call: Yes [facility] 09-30-2024 Miscellaneous Notes Name of caller: Jael Contact phone number: [phone] Relationship to Patient: spouse/SO Provider: Dr. Addison Practice: [facility] [place] Chief Complaint/Reason for Call: Jael called in to check on the status of this request. Per Jael he is concerned about the patient going without her medication sine he was advised that Dr. Addison would be out of the office. I advised him that someone else will cover for her while she is out. Pleas follow up to advise. Best time of day caller can be reached: any Patient advised that office/PCP has 24-48 business hours to return their call: Yes Name of caller: Jael Benson Contact phone number: [phone] Relationship to Patient: spouse/SO Provider: Dr. Addison Practice: [facility] [place] Chief Complaint/Reason for Call: Caller was calling in to make sure the [employer] message for a Rx refill was received, see message above. Caller stated pt is out of this medication and will need this filled today. Caller also wants to make sure that this will be sent to: [facility] [address] [place] [address] Ph. [phone] Please advise. Thank you. Best time of day caller can be reached: Any Patient advised that office/PCP has 24-48 business hours to return their call: Yes Last apt 09/19/24. Next apt 12/10/24 documented in this encounter [facility] 09-30-2024 Telephone encounter Note Name of caller: Jael Benson Contact phone number: [phone] Relationship to Patient: spouse/SO Provider: Dr. Addison Practice: [facility] [place] Chief Complaint/Reason for Call: Caller was calling in to make sure the [employer] message for a Rx refill was received, see message above. Caller stated pt is out of this medication and will need this filled today. Caller also wants to make sure that this will be sent to: [facility] [address] [place] [address]. [phone] Please advise. Thank you. Best time of day caller can be reached: Any Patient advised that office/PCP has 24-48 business hours to return their call: Yes [facility] 09-30-2024 Telephone encounter Note Last apt 09/19/24. Next apt 12/10/24 [facility] 09-25-2024 History of Present illness Narrative Living with Pain: Interview Jael Benson Visit date: @TODAY@ PCP: Niecy Addison DO Jael is a 59 y.o. female who presents today for: Pain assessment Patient was identified and seen today via Telehealth by agreement and consent. I used the following Telehealth technology: Audio and video capabilities. Patient location: Patient Location: Home. This patient encounter is appropriate and reasonable under the circumstances: transportation issues . The patient has been advised of the potential risks and limitations of this mode of treatment (including but not limited to the absence of in-person examination) and has agreed to be treated in a remote fashion in spite of them. Any and all of the patient's/patient's family's questions on this issue have been answered and I have made no promises or guarantees to the patient. The patient has also been advised to contact this office for worsening conditions or problems, and seek emergency medical treatment and/or call 911 if the patient deems either necessary. The patient stated that they are currently in the state [facility]. If the patient is a minor, permission has been obtained by the parent or guardian for the patient to receive medical care at this visit. Time in 10:50am / Time out 11:40am Total Time: 50 minutes Patient Consent : C discussed role and services including limits to confidentiality, documentation in a single EMR with care team, and potential financial responsibility. [facility] and pt discussed Living with Pain structure and group involvement. Patient expressed understanding and is agreeable to same. yes Reason for Referral to Behavioral Health: Pain assessment in preparation for living with pain group. Individual sessions. Social Hx: : yes, 38 years Children: yes, 2 boys; 2 grandchildren [address] Residential setting: Lives in own home with and 3 dogs Support System: , dad lives in [place], mom a little over a year ago. Son, Edward who lives across the street. Expecting a baby in April. Family Mental Health Hx: no Explain: Education: some college Employment: no If Unemployed Receiving Disability: no Disability Pending?: no Desire to return to work: no Financial Concerns: no Legal Concerns: no Alcohol Use: none Substance Use: none Hx of Trauma: no Spiritual: Episcopal but not over the top, believe in God Other Pertinent History: none Pain Information: Primary Pain Location: Body riddled with neuropathy. Diabetic since age 13 (46 years). Started in feet, can't feel feet anymore. Pain in legs a lot; particularly from the knee down. Knees at times, hands bother me the most. Non fixable carpal tunnel, neuropathy, and arthritis. Measure pain using a 0-10 scale with 0 being no pain and 10 being the worst pain imaginable: Current Pain Intensity: 3-4 Worst Pain intensity: 10+ Least Pain intensity (in last seven days): 3 Primary Pain Duration: Onset: (date/year if known) At 31, (28 years ago) starting in feet, unable to stand and crying. Pain meds but didn't like to take it. Just tried to deal with it. Neurologist for years, started pt on pain patch. Continued for quite a while. Then on morphine pills once a day. On those until age 48 then had a bad reaction to morphine and another medication and almost . Hospitalized, weaned off meds. And started on Fentanyl patch. # years: see above # months: see above Precipitating Event: Diabetes Pain Qualities: yes, constant, very much like contractions sometimes comes and goes in legs; constant in hands. Wakes up out of a sleep. Patient Stated: What makes your pain worse?: Hands hurt more when it rains. What provides relief for your pain?: Medication, massage machine for hands that warms up, sometimes water can help. Is pain better or worse at certain times of the day?: Hand pain can be worse at night. Everything can be worse at night. How do you cope with your pain? Had it for so long, just learned to live with it as it gradually has gotten worse over time. How does Pain impact your life?: Mobility: yes, can't walk when feet and legs work. When hands hurt it affects me being able to work in the yard. Mood: yes, contributes to depression Psychosocial Activities: no, tends to stay home a lot. 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 Needs to go places with someone. Recreation: yes Relationships: yes Sleep: yes Social: yes Work/School: yes Explain any impairments: Describe a Typical Day: Get up between 7:45 and 8:45, take care of dogs - feed and outside, laundry, cleaning what I can. Previous Pain Treatments: Surgery on hands for carpal tunnel. Medications. Describe Relief (if any): see above Psychiatric history: Hosp: 3 times, first at 17 following a SA; last time between 17 and 18, 3 different times at main campus [facility]: yes, [facility] Previous Dx: Depression, anxiety, hx of panic attacks, large crowds are problematic Suicide: No specific plan to harm self Homicide: no Psychiatric Medications (list dosage if known): Mental Status Examination: Level of consciousness: alert Appearance: did not see pt Behavior/Motor: cooperative Attitude toward examiner: pleasant Speech: clear, normal rate, tone and volume Mood: normal Affect: congruent with mood Hallucinations: absent Thought processes: goal oriented Thought content: normal none Insight: Good Judgement: Good Cognition: intact Memory: intact Sleep: has difficulty falling asleep, has interrupted sleep, and has restless sleep Appetite: ok Substance Use History Alcohol Use: denied Substance Use: none LYNN treatment history: none Screenings (to be completed by patient prior to interview) Quality of Life Scale: 5 PEG: What number best describes your pain on average in the past week?: 11/04 What number best describes how pain has interfered with you enjoyment of your life?: 0/10 What number best describes how pain has interfered with your general activity?: 03/06 PC-PTSD: 0 AUDIT-C: 0 PCS: 2 POP: not administered PHQ-9: 9 JUVE-7: 0 Treatment Goals and Recommendations: 1. Depression, major, recurrent, mild (HCC) Goals Decrease the frequency of unwanted emotions so that daily functioning is improved Treatment Modality/Intervention(s): Therapist actively listened and provided support throughout assessment. Reinforced positive thought process and other effective coping strategies pt uses to manage daily pain. Treatment and Follow-up Plan: Pt does not drive and lives more than an hour away from clinic so individual sessions are recommended. [facility] and pt have discussed crisis plan including: Pt is aware of [facility] availability, call center availability, and when to seek treatment via 911 or ED. documented in this encounter [facility] 09-19-2024 Evaluation + Plan note Associated Problem(s): Essential hypertension Controlled After addressing medication(s) compliance, adverse effects, and efficacy of treatment(s), medications for this controlled chronic condition will be continued. [facility] 09-19-2024 Evaluation + Plan note Associated Problem(s): Insomnia Controlled After addressing medication(s) compliance, adverse effects, and efficacy of treatment(s), medications for this controlled chronic condition will be continued. [facility] 09-19-2024 Evaluation + Plan note Associated Problem(s): Chronic painful diabetic neuropathy (CMS/HCC) (HCC) Controlled After addressing medication(s) compliance, adverse effects, and efficacy of treatment(s), medications for this controlled chronic condition will be continued. [facility] to meet with patient for Living with Pain evaluation Yearly LTOT paperwork filled out today [facility] 09-19-2024 Miscellaneous Notes Associated Problem(s): Essential hypertension Controlled After addressing medication(s) compliance, adverse effects, and efficacy of treatment(s), medications for this controlled chronic condition will be continued. Associated Problem(s): Insomnia Controlled After addressing medication(s) compliance, adverse effects, and efficacy of treatment(s), medications for this controlled chronic condition will be continued. Associated Problem(s): Chronic painful diabetic neuropathy (CMS/HCC) (HCC) Controlled After addressing medication(s) compliance, adverse effects, and efficacy of treatment(s), medications for this controlled chronic condition will be continued. [facility] to meet with patient for Living with Pain evaluation Yearly LTOT paperwork filled out today documented in this encounter [facility] 09-19-2024 Miscellaneous Notes Associated Problem(s): Essential hypertension Controlled After addressing medication(s) compliance, adverse effects, and efficacy of treatment(s), medications for this controlled chronic condition will be continued. Associated Problem(s): Insomnia Controlled After addressing medication(s) compliance, adverse effects, and efficacy of treatment(s), medications for this controlled chronic condition will be continued. Associated Problem(s): Chronic painful diabetic neuropathy (CMS/HCC) (HCC) Controlled After addressing medication(s) compliance, adverse effects, and efficacy of treatment(s), medications for this controlled chronic condition will be continued. [facility] to meet with patient for Living with Pain evaluation Yearly LTOT paperwork filled out today Addended by: NIECY ADDISON on: 09/20/2024 09:06 AM Modules accepted: Orders documented in this encounter [facility] 09-19-2024 History of Present illness Narrative Images from the original note were not included. Prechart note: (the following data was documented before the visit began) Rooming: Yearly LTOT packet (found in black bins in clinic), urine for UDS, PHQ9 Possible agenda: LTOT Provider notes: Multidisciplinary team needs: [facility] assessment? Health Maintenance to be addressed today: Cologuard ordered 03/2024 Health Maintenance Due Topic Date Due Diabetes: Celiac Disease Screening Never done Colorectal Cancer Screening Never done MMR Vaccines (1 of 1 - Standard series) Never done Diabetes: Dental Exam Never done Hepatitis A Vaccines (1 of 2 - Risk 2-dose series) Never done Mammogram Never done COVID-19 Vaccine ( season) 2024 TSH Level 09/21/2024 Diabetes: Estimated Glomerular Filtration Rate for Kidney Health 09/21/2024 (end precharting)- [facility] - [address] [facility] [id number] Dept: [phone] Dept Loc: [phone] Assessment/Plan 1. Chronic painful diabetic neuropathy (CMS/HCC) (HCC) Assessment & Plan: Controlled After addressing medication(s) compliance, adverse effects, and efficacy of treatment(s), medications for this controlled chronic condition will be continued. [facility] to meet with patient for Living with Pain evaluation Yearly LTOT paperwork filled out today Orders: - PAIN MANAGEMENT PANEL - Microalbumin / creatinine urine ratio - fentaNYL (Duragesic) 62.5 MCG/HR; Place 1 patch on the skin Every 72 hours., Starting Zahraa 09/19/2024, Until 10/19/2024, Normal - fentaNYL (Duragesic) 62.5 MCG/HR; Place 1 patch on the skin Every 72 hours. Do not start before October 19, 2024., Starting 10/19/2024, Until 11/18/2024, Normal - fentaNYL (Duragesic) 62.5 MCG/HR; Place 1 patch on the skin Every 72 hours. Do not start before November 18, 2024., Starting 11/18/2024, Until 12/18/2024, Normal 2. Essential hypertension Assessment & Plan: Controlled After addressing medication(s) compliance, adverse effects, and efficacy of treatment(s), medications for this controlled chronic condition will be continued. 3. Psychophysiological insomnia Assessment & Plan: Controlled After addressing medication(s) compliance, adverse effects, and efficacy of treatment(s), medications for this controlled chronic condition will be continued. 4. 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 - PAIN MANAGEMENT PANEL 5. Need for vaccination - Flu vaccine (FLUCELVAX), trivalent, MDCK, preservative-free 6. Colon cancer screening Comments: Reminded patient to complete Cologuard which she still has at home Follow Up: Follow up in about 3 months (around 12/18/2024) for LTOT, with PCP or Pod provider, for Telehealth. Niecy Addison DO 09/19/24 11:22 AM Subjective Jael Benson is a 59 y.o. who presents for: Chief Complaint Patient presents with Follow-up HPI Controlled Substances Monitoring: No data to display OARRs Reviewed. [employer] PAIN MANAGEMENT DRUG PANEL Date Value Ref Range Status 03/16/2022 NEGATIVE NA Final No results found for: TRAMADOLUR Last pain management panel concordant: Yes Rationale for use of opioid: To treat moderate or severe pain and functional impairment caused by diagnosis of diabetic neuropathy Patient did not receive adequate pain control/function with 2 non-opioid treatments including: adjuvant anticonvulsants and adjuvantantidepressants at maximum tolerated doses Specialist referral and recommendation: pain management, palliative Opioid prescribed to treat non-cancer/non-malignant pain outside of active cancer treatment, palliative care, end of life/hospice care, sickle cell, severe burn, traumatic crushing of tissue, amputation, major orthopedic surgery. This short-acting opioid is prescribed after confirmation of the following; This patient is not opioid-naive.This patient has received opioid medications for at least 7 days prior to this prescription. An opioid agreement is recorded in the electronic record and confirms discussion of the benefits and risks of opioid therapy. RED FLAGS: Forging or altering a prescription: No Using another person's pain or scheduled medication: No Illegal drugs, including THC, in PNM: No Controlled drugs not prescribed by this office in PNM: No Intoxication: No Overdose: No Legal problems related to controlled substances: No Behavior that threatens staff or physician: No Accident motor vehicle crash: No PAIN ROS How is the pain medication helping your function: much improved: ambulation, bathing and hygiene, grooming, toileting, and dressing Are you having any sleepiness: No Are you having any constipation: No Are you having any mental slowing: No Are you having any sexual dysfunction: No PEG 1 (painon average in the past week with medications): 4 PEG 2 (pain interference with enjoyment of life): 1 PEG 3 (pain interference with normal activity): 1 SELF MANAGEMENT: The patient is interested in this area of self management: Meaningful life activities (familly, household responsibilities, work) Follow up of: insomnia Medication(s) taking: tofranil Days in a week that patient misses dose of med(s): none Adverse effects of medication(s): No Follow up of: hypertension Medication(s) taking: cozaar Days in a week that patient misses dose of med(s): none Adverse effects of medication(s): No Allergies Allergen Reactions Oxycodone Anxiety and Other Severe insomnia Other reaction(s): Other (See Comments), Other (See Comments) Levofloxacin Other reaction(s): Other (See Comments), Other: See Comments insomnia insomnia Other reaction(s): anxious, Other (See Comments), Other: See Comments Diphenhydramine Other reaction(s): Agitation, Hyperactivity hyper Other reaction(s): Agitation, Other Elavil [Amitriptyline] Other Weight gain Iodinated Contrast Media Other reaction(s): Vomiting Metoclopramide Other Other reaction(s): Hyperactivity, Intolerance reglan hyper Other reaction(s): Intolerance, Other, Other (See Comments) Nitrofurantoin Other reaction(s): Intolerance macrobid Other reaction(s): Other (See Comments) Phenothiazines Other reaction(s): Hyperactivity, Intolerance compazine hyper Other reaction(s): Intolerance, Other Review of Systems Respiratory: Negative for shortness of breath. Cardiovascular: Negative for chest pain. Gastrointestinal: Positive for diarrhea and vomiting. Negative for anal bleeding and blood in stool. Psychiatric/Behavioral: Negative for dysphoric mood and sleep disturbance. [] Problem list and/or medical history reviewed/updated as appropriate [] Medication list reviewed/updated [] Allergies reviewed/updated [] Patient requests medication refills, see below for orders. Last 3 PHQ-9 Scores No data found in the last 10 encounters. Last 3 JUVE-7 Scores No data found in the last 10 encounters. Objective (if obtainable) BP 138/78 (BP Location: Right arm, Patient Position: Sitting, BP Cuff Size: Adult) Pulse 88 Temp 36.6 C (97.9 F) (Temporal) Resp 18 Ht 5' 4 (1.626 m) Wt 205 lb 9.6 oz (93.3 kg) BMI 35.29 kg/m Physical Exam Constitutional: General: She is not in acute distress. Appearance: Normal appearance. HENT: Head: Normocephalic and atraumatic. Cardiovascular: Rate and Rhythm: Normal rate and regular rhythm. Heart sounds: No murmur heard. Pulmonary: Effort: Pulmonary effort is normal. No respiratory distress. Breath sounds: Normal breath sounds. Abdominal: General: Abdomen is flat. There is no distension. Palpations: Abdomen is soft. There is no mass. Visit reason: LTOT Patient does not admit to respiratory symptoms of cough, congestion, shortness of breath, or fever. Additional information: Medications needing to be refilled: no Patient was able to ambulate safely to the examination room. Provider was not notified of possible fall risk. Qa Lead: not offered, due to no disrobing or intimate exam anticipated PHQ2: negative Suicidal ideation: absent Food insecurity screening: negative Mechanic Helper used: no documented in this encounter [facility] 09-19-2024 History of Present illness Narrative Images from the original note were not included. Prechart note: (the following data was documented before the visit began) Rooming: Yearly LTOT packet (found in black bins in clinic), urine for UDS, PHQ9 Possible agenda: LTOT Provider notes: Multidisciplinary team needs: [facility] assessment? Health Maintenance to be addressed today: Cologuard ordered 03/2024 Health Maintenance Due Topic Date Due Diabetes: Celiac Disease Screening Never done Colorectal Cancer Screening Never done MMR Vaccines (1 of 1 - Standard series) Never done Diabetes: Dental Exam Never done Hepatitis A Vaccines (1 of 2 - Risk 2-dose series) Never done Mammogram Never done COVID-19 Vaccine ( season) 2024 TSH Level 09/21/2024 Diabetes: Estimated Glomerular Filtration Rate for Kidney Health 09/21/2024 (end precharting)- [facility] [address] [facility] [address] Dept: [phone] Dept Loc: [phone] Assessment/Plan 1. Chronic painful diabetic neuropathy (CMS/HCC) ([facility]) Assessment & Plan: Controlled After addressing medication(s) compliance, adverse effects, and efficacy of treatment(s), medications for this controlled chronic condition will be continued. [facility] to meet with patient for Living with Pain evaluation Yearly LTOT paperwork filled out today Orders: - PAIN MANAGEMENT PANEL - Microalbumin / creatinine urine ratio - fentaNYL (Duragesic) 62.5 MCG/HR; Place 1 patch on the skin Every 72 hours., Starting Zahraa 09/19/2024, Until 10/19/2024, Normal - fentaNYL (Duragesic) 62.5 MCG/HR; Place 1 patch on the skin Every 72 hours. Do not start before October 19, 2024., Starting 10/19/2024, Until 11/18/2024, Normal - fentaNYL (Duragesic) 62.5 MCG/HR; Place 1 patch on the skin Every 72 hours. Do not start before November 18, 2024., Starting 11/18/2024, Until 12/18/2024, Normal 2. Essential hypertension Assessment & Plan: Controlled After addressing medication(s) compliance, adverse effects, and efficacy of treatment(s), medications for this controlled chronic condition will be continued. 3. Psychophysiological insomnia Assessment & Plan: Controlled After addressing medication(s) compliance, adverse effects, and efficacy of treatment(s), medications for this controlled chronic condition will be continued. 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 Need for vaccination - Flu vaccine (FLUCELVAX), trivalent, MDCK, preservative-free 6. Colon cancer screening Comments: Reminded patient to complete Cologuard which she still has at home Follow Up: Follow up in about 3 months (around 12/18/2024) for LTOT, with PCP or Pod provider, for Telehealth. Niecy Addison DO 09/19/24 11:22 AM Subjective Jael Benson is a 59 y.o. who presents for: Chief Complaint Patient presents with Follow-up HPI Controlled Substances Monitoring: No data to display OARRs Reviewed. [employer] PAIN MANAGEMENT DRUG PANEL Date Value Ref Range Status 03/16/2022 NEGATIVE NA Final No results found for: TRAMADOLUR Last pain management panel concordant: Yes Rationale for use of opioid: To treat moderate or severe pain and functional impairment caused by diagnosis of diabetic neuropathy Patient did not receive adequate pain control/function with 2 non-opioid treatments including: adjuvant anticonvulsants and adjuvantantidepressants at maximum tolerated doses Specialist referral and recommendation: pain management, palliative Opioid prescribed to treat non-cancer/non-malignant pain outside of active cancer treatment, palliative care, end of life/hospice care, sickle cell, severe burn, traumatic crushing of tissue, amputation, major orthopedic surgery. This short-acting opioid is prescribed after confirmation of the following; This patient is not opioid-naive.This patient has received opioid medications for at least 7 days prior to this prescription. An opioid agreement is recorded in the electronic record and confirms discussion of the benefits and risks of opioid therapy. RED FLAGS: Forging or altering a prescription: No Using another person's pain or scheduled medication: No Illegal drugs, including THC, in PNM: No Controlled drugs not prescribed by this office in PNM: No Intoxication: No Overdose: No Legal problems related to controlled substances: No Behavior that threatens staff or physician: No Accident motor vehicle crash: No PAIN ROS How is the pain medication helping your function: much improved: ambulation, bathing and hygiene, grooming, toileting, and dressing Are you having any sleepiness: No Are you having any constipation: No Are you having any mental slowing: No Are you having any sexual dysfunction: No PEG 1 (painon average in the past week with medications): 4 PEG 2 (pain interference with enjoyment of life): 1 PEG 3 (pain interference with normal activity): 1 SELF MANAGEMENT: The patient is interested in this area of self management: Meaningful life activities (familly, household responsibilities, work) Follow up of: insomnia Medication(s) taking: tofranil Days in a week that patient misses dose of med(s): none Adverse effects of medication(s): No Follow up of: hypertension Medication(s) taking: cozaar Days in a week that patient misses dose of med(s): none Adverse effects of medication(s): No Allergies Allergen Reactions Oxycodone Anxiety and Other Severe insomnia Other reaction(s): Other (See Comments), Other (See Comments) Levofloxacin Other reaction(s): Other (See Comments), Other: See Comments insomnia insomnia Other reaction(s): anxious, Other (See Comments), Other: See Comments Diphenhydramine Other reaction(s): Agitation, Hyperactivity hyper Other reaction(s): Agitation, Other Elavil [Amitriptyline] Other Weight gain Iodinated Contrast Media Other reaction(s): Vomiting Metoclopramide Other Other reaction(s): Hyperactivity, Intolerance reglan hyper Other reaction(s): Intolerance, Other, Other (See Comments) Nitrofurantoin Other reaction(s): Intolerance macrobid Other reaction(s): Other (See Comments) Phenothiazines Other reaction(s): Hyperactivity, Intolerance compazine hyper Other reaction(s): Intolerance, Other Review of Systems Respiratory: Negative for shortness of breath. Cardiovascular: Negative for chest pain. Gastrointestinal: Positive for diarrhea and vomiting. Negative for anal bleeding and blood in stool. Psychiatric/Behavioral: Negative for dysphoric mood and sleep disturbance. [] Problem list and/or medical history reviewed/updated as appropriate [] Medication list reviewed/updated [] Allergies reviewed/updated [] Patient requests medication refills, see below for orders. Last 3 PHQ-9 Scores No data found in the last 10 encounters. Last 3 JUVE-7 Scores No data found in the last 10 encounters. Objective (if obtainable) BP 138/78 (BP Location: Right arm, Patient Position: Sitting, BP Cuff Size: Adult) Pulse 88 Temp 36.6 C (97.9 F) (Temporal) Resp 18 Ht 5' 4 (1.626 m) Wt 205 lb 9.6 oz (93.3 kg) BMI 35.29 kg/m Physical Exam Constitutional: General: She is not in acute distress. Appearance: Normal appearance. HENT: Head: Normocephalic and atraumatic. Cardiovascular: Rate and Rhythm: Normal rate and regular rhythm. Heart sounds: No murmur heard. Pulmonary: Effort: Pulmonary effort is normal. No respiratory distress. Breath sounds: Normal breath sounds. Abdominal: General: Abdomen is flat. There is no distension. Palpations: Abdomen is soft. There is no mass. Visit reason: LTOT Patient does not admit to respiratory symptoms of cough, congestion, shortness of breath, or fever. Additional information: Medications needing to be refilled: no Patient was able to ambulate safely to the examination room. Provider was not notified of possible fall risk. Qa Lead: not offered, due to no disrobing or intimate exam anticipated PHQ2: negative Suicidal ideation: absent Food insecurity screening: negative Mechanic Helper used: no documented in this encounter [facility] [employer] 09-19-2024 Note Addended by: NIECY ADDISON on: 09/20/2024 09:06 AM Modules accepted: Orders [facility] [employer] 09-19-2024 Note Addended by: NIECY ADDISON on: 09/20/2024 09:06 AM Modules accepted: Orders [facility] [employer] 09-19-2024 Note Addended by: NIECY ADDISON on: 09/20/2024 09:06 AM Modules accepted: Orders [facility] [employer] 09-19-2024 Note Addended by: NIECY ADDISON on: 09/20/2024 09:06 AM Modules accepted: Orders [facility] [employer] 07-22-2024 Note HNO ID: [id number] Author: KOKI PEÑA APRN.ENVIRONMENTAL RESEARCH SCIENTIST Service: ? Author Type: Nurse Practitioner Type: Progress Notes Filed: 07/28/2024 06:02 Note Text: [facility] New Patient Evaluation PATIENT NAME: Jael Benson DATE OF SERVICE: July 22, 2024 CONSULTING PROVIDER: No referring provider defined for this encounter. REASON FOR VISIT: HPI: Jael Benson is a 59 year old female. Sleep-related history: accompanied by her , he wonders about sleep apnea, he uses CPAP. Pt started snoring in about the past 5-6 yrs. notes she often has raspy voice. She has year-round nasal congestion. Sleeps with HOB elevated, breathes better that way. Anxiety and depression since teens. Then anxiety at got severe; would get up and walk around which didn't help the anxiety; started amitriptyline 25 mg then 50 mg in February 2024 which was helpful but she gained 22 lbs. Now on imipramine 50 mg which helps and no adverse effects. On fentanyl patch for chronic pain. SLEEP-WAKE SCHEDULE Bedtime: 10 PM. She has a hard time falling asleep. Time to fall asleep: 2 hrs Wake time: 8-9 AM After falling asleep: she wakes up 2-3 time(s) per night, and does not know the reason for waking up. Able to fall back asleep. Has headphones on all night. On weekends, lets her sleep until 10 AM since he is home to let dogs out Average total sleep time (in a 24 hour period): 9-10 hours. SLEEP-RELATED DETAILS Preferred sleep position: back Breathing disturbances and other behaviors during sleep: snoring and frequent leg movements. GERD or aspiration: No Waking up with heart pounding or racing: No Anxiety or rumination: Yes She reports having an urge to move the legs. Arms and legs would move on their own, on gabapentin for many yrs which controls the symptoms. The urge to move the legs is not worse in the evening or nighttime. The urge to move the legs begins or worsens during periods of rest or inactivity (e.g. lying or sitting). The urge to move the legs is partially or totally relieved by movements such as walking or stretching, at least as long as the activity continues. The urge to move the legs occurs never now and began in her early 30s. There is history of iron deficiency or anemia. She has not been told that she has leg kicking during sleep. She denies any history of parasomnias. Excessive daytime sleepiness / fatigue is a problem. Excessive Daytime sleepiness/fatigue has been a problem for lifelong, and worse for 6-8 yrs per . There is a history of head injury (brain swelling due to build up of morphine in her system). She does not report sleep paralysis or sleep-related hallucinations (only with fever) or cataplexy WAKE-RELATED DETAILS She does not work. She does not have difficulty with memory or concentration. She does not drive. She does not take naps intentionally but falls asleep easily, eg any time passenger in car or on iPad She does drink diet Pepsi caffeinated beverages per day--6 bottles. She has gained 22 pounds since 6 mos. [place] Sleepiness Scale: Sitting and readin Watching TV: 3 Sitting, inactive in a public place (e.g. a theatre or a meeting): 2 As a passenger in a car for an hour without a break: 3 Lying down to rest in the afternoon when circumstances permit: 3 Sitting and talking to someone: 0 Sitting quietly after a lunch without alcohol: 3 In a car, while stopped for a few minutes in the traffic: 0 Total: 17 Patient Questionnaires Sleep Scores 07/16/2024 Sleep Questions Reason for visit: Difficulty falling or staying asleep or poor sleep quality On average, hours of sleep in 24 hours: 10 Accidents or near accidents due to drowsy drivin 07/16/2024 [place] Sleepiness Scale Score Incomplete 07/16/2024 PROMIS CAT Sleep Disturbance PROMIS Sleep Disturbance T-Score 52 (within normal limits) PROMIS Sleep Disturbance Percentile 42 07/16/2024 Restless Leg Syndrome Score Incomplete 07/16/2024 PHQ-9 Score 5 07/13/2024 PROMIS Global Health - (T-Scores - the mean of general population = 50. 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 [facility] 07-22-2024 History of Present illness Narrative Images from the original note were not included. [facility] New Patient Evaluation PATIENT NAME: Jael Benson DATE OF SERVICE: July 22, 2024 CONSULTING PROVIDER: No referring provider defined for this encounter. REASON FOR VISIT: HPI: Jael Benson is a 59 year old female. Sleep-related history: accompanied by her , he wonders about sleep apnea, he uses CPAP. Pt started snoring in about the past 5-6 yrs. notes she often has raspy voice. She has year-round nasal congestion. Sleeps with HOB elevated, breathes better that way. Anxiety and depression since teens. Then anxiety at HS got severe; would get up and walk around which didn't help the anxiety; started amitriptyline 25 mg then 50 mg in February 2024 which was helpful but she gained 22 lbs. Now on imipramine 50 mg which helps and no adverse effects. On fentanyl patch for chronic pain. SLEEP-WAKE SCHEDULE Bedtime: 10 PM. She has a hard time falling asleep. Time to fall asleep: 2 hrs Wake time: 8-9 AM After falling asleep: she wakes up 2-3 time(s) per night, and does not know the reason for waking up. Able to fall back asleep. Has headphones on all night. On weekends, lets her sleep until 10 AM since he is home to let dogs out Average total sleep time (in a 24 hour period): 9-10 hours. SLEEP-RELATED DETAILS Preferred sleep position: back Breathing disturbances and other behaviors during sleep: snoring and frequent leg movements. GERD or aspiration: No Waking up with heart pounding or racing: No Anxiety or rumination: Yes She reports having an urge to move the legs. Arms and legs would move on their own, on gabapentin for many yrs which controls the symptoms. The urge to move the legs is not worse in the evening or nighttime. The urge to move the legs begins or worsens during periods of rest or inactivity (e.g. lying or sitting). The urge to move the legs is partially or totally relieved by movements such as walking or stretching, at least as long as the activity continues. The urge to move the legs occurs never now and began in her early 30s. There is history of iron deficiency or anemia. She has not been told that she has leg kicking during sleep. She denies any history of parasomnias. Excessive daytime sleepiness / fatigue is a problem. Excessive Daytime sleepiness/fatigue has been a problem for lifelong, and worse for 6-8 yrs per . There is a history of head injury (brain swelling due to build up of morphine in her system). She does not report sleep paralysis or sleep-related hallucinations (only with fever) or cataplexy WAKE-RELATED DETAILS She does not work. She does not have difficulty with memory or concentration. She does not drive. She does not take naps intentionally but falls asleep easily, eg any time passenger in car or on iPad She does drink diet Pepsi caffeinated beverages per day--6 bottles. She has gained 22 pounds since 6 mos. [place] Sleepiness Scale: Sitting and readin Watching TV: 3 Sitting, inactive in a public place (e.g. a theatre or a meeting): 2 As a passenger in a car for an hour without a break: 3 Lying down to rest in the afternoon when circumstances permit: 3 Sitting and talking to someone: 0 Sitting quietly after a lunch without alcohol: 3 In a car, while stopped for a few minutes in the traffic: 0 Total: 17 Patient Questionnaires Sleep Scores 07/16/2024 Sleep Questions Reason for visit: Difficulty falling or staying asleep or poor sleep quality On average, hours of sleep in 24 hours: 10 Accidents or near accidents due to drowsy drivin 07/16/2024 [place] Sleepiness Scale Score Incomplete 07/16/2024 PROMIS CAT Sleep Disturbance PROMIS Sleep Disturbance T-Score 52 (within normal limits) PROMIS Sleep Disturbance Percentile 42 07/16/2024 Restless Leg Syndrome Score Incomplete 07/16/2024 PHQ-9 Score 5 07/13/2024 PROMIS Global Health - (T-Scores - the mean of general population = 50. 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) PAST SURGICAL HISTORY Procedure Laterality Date , CLASSIC, ANTE/POST CA 02/27/88, 06/03/91 x2 COLPOSCOPY CERVIX UPPER/ADJACENT VAGINA 1999 LEEP LAPAROSCOPY DIAGNOSTIC for fertility NEUROPLASTY &/TRANSPOS MEDIAN NRV CARPAL TUNNE 04-26-13 Carpal tunnel decomp, left PAST SURGICAL HISTORY OF 2002 Left ureter obstruction/stent scope PAST SURGICAL HISTORY OF 06-26-2001 Rt ankle fx repair with plates/screws PAST SURGICAL HISTORY OF right CTR PAST SURGICAL HISTORY OF 2007 left eye enucleation d/t pain ACTIVE PROBLEM LIST Allergic Rhinitis, Cause Unspecified Uncontrolled Type 1 Diabetes Mellitus With Ophthalmic Complication Pain in Joint, Shoulder Region Other and Unspecified Adverse Effect of Drug, Medicinal and Biological Substance Urinary Obstruction Asa Class II Abdominal Pain, Other Specified Site Other Ureteric Obstruction Unspecified Hearing Loss Esophageal Reflux Trigger Finger (Acquired) Depressive Disorder, Not Elsewhere Classified Kidney Disease Type 1 Diabetes Mellitus With Neurological Manifestations (Hcc) Fissure in Skin of Foot Polyneuropathy in Diabetes(357.2) Carpal Tunnel Syndrome On Both Sides Carpal Tunnel Syndrome, Left Carpal Tunnel Syndrome, Right Hyperlipidemia Ckd (Chronic Kidney Disease) Htn (Hypertension) Diabetic Autonomic Neuropathy (Hcc) Controlled 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 ICD-10: E10.65 ICD-10: E11.65 (insulin dependent) Blood-Glucose Transmitter (DEXCOM G6 TRANSMITTER) jeff 1 Device every 10 days. Blood-Glucose Meter,Continuous (DEXCOM G6 TRAP SETTER) misc Use as directed to monitor blood glucose 4-6 times per day. ICD-10: E10.65 ICD-10: E11.65 (insulin dependent) aspirin, enteric coated (ASPIRIN, ENTERIC COATED) 81 mg EC tablet Take 1 tablet by mouth once daily. ADULT MUTIVITAMIN W/ EXTRA D GUMMY Take by mouth. Infusion Set for Insulin Pump (JUSTUS INFUSION SET) iset Change it 3 days Insulin Pump Syringe (PARADIGM RESERVOIR) 1.8 mL misc Use as needed insulin lispro (HUMALOG U-100 INSULIN) 100 unit/mL injection Inject SQ as directed in insulin pump up to 100 units daily aspirin (ASPIR-81 ORAL) Take by mouth. atorvastatin (LIPITOR) 40 mg tablet Take 40 mg by mouth once daily. scopolamine (TRANSDERM-SCOP) patch 1.5 mg/72 hr (delivers 1 mg over 3 days) Apply 1 disc behind the ear at least 4 hours prior to exposure and every 3 days as needed. ondansetron HCl (ZOFRAN ORAL) Take by mouth. venlafaxine ER (EFFEXOR XR) 150 mg 24 hr capsule TAKE 1 CAPSULE DAILY IN THE MORNING venlafaxine (EFFEXOR) 75 mg tablet TAKE 1 TABLET DAILY AT BEDTIME medroxyPROGESTERone (PROVERA, CYCRIN) 2.5 mg tablet Take 2.5 mg by mouth once daily. Estradiol (ESTRACE) 0.5 mg tablet Take 0.5 mg by mouth once daily. fentaNYL (DURAGESIC) 50 mcg/hr meclizine (ANTIVERT) 25 mg tab Take 25 mg by mouth twice daily as needed. insulin lispro (HUMALOG) 100 unit/mL injection Inject SQ as directed in insulin pump up to 100 units daily Multivitamin capsule Take 1 capsule by mouth once daily. gabapentin (NEURONTIN) 800 mg tablet Take 1 tablet by mouth four times daily. glucagon, human recombinant, (GLUCAGON EMERGENCY) 1 mg injection 1 mg as directed. INJECT FOR INSULIN SHOCK losartan (COZAAR) 50 mg ORAL tablet Take 1 tablet by mouth once daily. imipramine HCl (TOFRANIL) 50 mg tablet Take 50 mg by mouth every evening. glucagon 3 mg/actuation nasal spray (BAQSIMI) Use 1 [place] in the nose as needed for low blood sugar. May repeat after 15 minutes using a new device if there is no response. Review of Systems HENT: Positive for congestion (claritin corrie Vela. has allergies.). Cardiovascular: Negative for palpitations. Gastrointestinal: Negative for heartburn. Genitourinary: Negative for nocturia (self caths due to neurogenic bladder). Neurological: Negative for memory loss. SOCIAL HISTORY: Social History Tobacco Use Smoking status: Former Current packs/day: 0.00 Average packs/day: 1 pack/day for 8.0 years (8.0 ttl pk-yrs) Types: Cigarettes Start date: 08/28/1978 Quit date: 08/28/1986 Years since quittin.9 Smokeless tobacco: Never Vaping Use Vaping status: Never Used Substance Use Topics Alcohol use: No Drug use: No FAMILY HISTORY: FAMILY HISTORY Problem Relation Age of Onset Heart Father colon polyps other (spinal stenosis [Other]) Father Heart Sister Diabetes Son Anesthesia Problems No Family History There is a family history of: Narcolepsy. Relative: son PHYSICAL EXAMINATION: Vital Signs: BP 119/73 Pulse 92 Resp 16 Wt 91.2 kg (201 lb) LMP (LMP Unknown) BMI 36.06 kg/m PHYSICAL EXAM: General appearance: pleasant, NAD Mental status: alert and oriented, able to provide own history Constitutional: obese Skin: No visible rashes on exposed skin Neuro: No focal deficits observed, no tremors Dentures IMPRESSION/PLAN: R06.83 Snoring (primary encounter diagnosis) F11.90 Chronic, continuous use of opioids G47.8 Non-restorative sleep G47.19 Excessive daytime sleepiness G25.81 RLS (restless legs syndrome) Jael Benson is a 59 year old female with snoring, chronic insomnia, frequent nocturnal awakenings, non-restorative sleep, excessive daytime sleepiness, RLS, chronic use of opioids for chronic pain, type 1 diabetes, neuropathy, HLD, HTN, CKD, allergic rhinitis, depression, anxiety, obesity. We discussed both DARRYL and central sleep apnea. Jael has risks for both DARRYL (snoring, obesity, crowded upper airspace, postmenopausal) and CSA (fentanyl patch). Discussed pathophysiology, signs and symptoms, risks of untreated apnea. Reviewed testing. They are familiar with PAP therapy since uses it. - Polysomnogram (PSG) to evaluate for obstructive sleep apnea. I will send [facility] msg - Discussed with the patient the possible diagnosis, causes, and conditions associated with obstructive sleep apnea. - Avoid driving when drowsy. Recommend that if you are dozing off while driving, that you do not drive until your sleepiness is appropriately treated. -Encouraged healthy lifestyle with adequate sleep ( 7-9 hours per night), diet and exercise. - Results are usually available within 7-10 business days. If you do not hear from us within 1-2 weeks after testing, please contact us directly. - Follow up visit 3 wks after PSG Koki Peña APRN.ENVIRONMENTAL RESEARCH SCIENTIST documented in this encounter [facility] 07-17-2024 Note HNO ID: [id number] Author: KAMLA KAPLAN OCCA Service: ? Author Type: College Or University Faculty Member Type: Procedures Filed: 07/17/2024 16:00 Note Text: [facility] 07-17-2024 Procedure note Procedure(s): EXTERNAL TRAP SETTER, CGM SYS Images from the original note were not included. [facility] 07-17-2024 Procedure note Procedure(s): EXTERNAL TRAP SETTER, CGM SYS Images from the original note were not included. documented in this encounter [facility] 07-17-2024 Note HNO ID: [id number] Author: FERN JACKSON MD Service: ? Author Type: Physician Type: Progress Notes Filed: 07/18/2024 10:01 Note Text: [facility] follow up Consultation requested by For an opinion regarding Diabetes. My final recommendations will be communicated back to the requesting physician by way of shared Medical record or letter to requesting physician via US mail. Referring provider: Dr. Addison Phone: N/A Fax: HISTORY OF PRESENT ILLNESS: Jael Benson is a 58 year old female with PMH of type 1 diabetes who presents today for follow up for T1D. Patient presents today for follow-up. Since the last visit she has changed her pump and instead of Tandem and now she is on Omnipod since summer. She has adapted well and really likes the new pump. She has gained weight, however attributes most of it due to a new medication that she tried for a month, and made her gain over 20 pounds. She has now discontinued it. She is trying to watch her diet and planning to exercise. Since switching to a different pump she has been doing well, has not had any major episode of hypoglycemia. Her has access to her blood sugar readings and because the patient has hypoglycemia unawareness, and he pays attention to it and calls her whenever he sees his her blood sugars dropping. Date of Diagnosis: at age 13 Symptoms of Hyperglycemia : Polydipsia Symptoms of Hypoglycemia: Loss of early awareness -------- Current DM Regimen: Omnipod Had Tandom t slim for 3 years Pump Settings: -- Pump Type: omnipod -- Manual Boluses: Yes -- Changes the site: every 3 days. -- Av B -- Avg daily carbs: - -- Avg Basal: 3.79 -- Avg Bolus: 16.5 Basal rate: Time U/Hr 0.16 Carb ratio: 1:11 Sensitivity Factor: 1:50 Blood glucose target: 110 Active insulin time: 3 -------- Physical Activity: Regular Diet: Counts Carbs Frequency of skipping meals is If on prandial insulin, is prandial insulin is skipped when a meal is skipped: Frequency of skipping diabetes meds: SMBG Type of Monitor: Dexcom Frequency of Monitoring: Not applicable BG Values: Not applicable Range of glucose levels is between -to - mg/dl -------- Last Eye Exam: March Last Foot Exam: due for Previous Diabetes Education: not applicable. Computed FIB-4 Calculation unavailable. One or more values for this score either were not found within the given timeframe or did not fit some other criterion. 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) PAST SURGICAL HISTORY Procedure Laterality Date , CLASSIC, ANTE/POST CA 02/27/88, 06/03/91 x2 COLPOSCOPY CERVIX UPPER/ADJACENT VAGINA 1999 LEEP LAPAROSCOPY DIAGNOSTIC for fertility NEUROPLASTY AND/TRANSPOS MEDIAN NRV CARPAL TUNNE 04-26-13 Carpal tunnel decomp, left PAST SURGICAL HISTORY OF 2002 Left ureter obstruction/stent scope PAST SURGICAL HISTORY OF 06-26-2001 Rt ankle fx repair with plates/screws PAST SURGICAL HISTORY OF right CTR PAST SURGICAL HISTORY OF 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 ICD-10: E10.65 ICD-10: E11.65 (insulin dependent) 4 Each 3 Blood-Glucose Transmitter (DEXCOM G6 TRANSMITTER) jeff 1 Device every 10 days. 3 Each 4 Blood-Glucose Meter,Continuous (DEXCOM G6 TRAP SETTER) misc Use as directed to monitor blood glucose 4-6 times per day. ICD-10: E10.65 ICD-10: E11.65 (insulin dependent) 2 Each 5 Blood-Glucose Meter,Continuous (DEXCOM G7 TRAP SETTER) misc 1 Each every 10 days. 2 Each 5 aspirin, enteric coated (ASPIRIN, ENTERIC COATED) 81 mg EC tablet Take 1 tablet by mouth once daily. ADULT MUTIVITAMIN W/ EXTRA D GUMMY Take by mouth. Blood-Glucose Meter,Continuous (DEXCOM G7 TRAP SETTER) misc Use as directed to monitor blood glucose 4-6 times per day. ICD-10: E10.65 ICD (more content not included)... [facility] 07-17-2024 History of Present illness Narrative Images from the original note were not included. [facility] follow up Consultation requested by For an opinion regarding Diabetes. My final recommendations will be communicated back to the requesting physician by way of shared Medical record or letter to requesting physician via US mail. Referring provider: Dr. Addison Phone: N/A Fax: HISTORY OF PRESENT ILLNESS: Jael Benson is a 58 year old female with PMH of type 1 diabetes who presents today for follow up for T1D. Patient presents today for follow-up. Since the last visit she has changed her pump and instead of Tandem and now she is on Omnipod since summer. She has adapted well and really likes the new pump. She has gained weight, however attributes most of it due to a new medication that she tried for a month, and made her gain over 20 pounds. She has now discontinued it. She is trying to watch her diet and planning to exercise. Since switching to a different pump she has been doing well, has not had any major episode of hypoglycemia. Her has access to her blood sugar readings and because the patient has hypoglycemia unawareness, and he pays attention to it and calls her whenever he sees his her blood sugars dropping. Date of Diagnosis: at age 13 Symptoms of Hyperglycemia : Polydipsia Symptoms of Hypoglycemia: Loss of early awareness -------- Current DM Regimen: Omnipod Had Tandom t slim for 3 years Pump Settings: -- Pump Type: omnipod -- Manual Boluses: Yes -- Changes the site: every 3 days. -- Av B -- Avg daily carbs: - -- Avg Basal: 3.79 -- Avg Bolus: 16.5 Basal rate: Time U/Hr 0.16 Carb ratio: 1:11 Sensitivity Factor: 1:50 Blood glucose target: 110 Active insulin time: 3 -------- Physical Activity: Regular Diet: Counts Carbs Frequency of skipping meals is If on prandial insulin, is prandial insulin is skipped when a meal is skipped: Frequency of skipping diabetes meds: SMBG Type of Monitor: Dexcom Frequency of Monitoring: Not applicable BG Values: Not applicable Range of glucose levels is between -to - mg/dl -------- Last Eye Exam: March Last Foot Exam: due for Previous Diabetes Education: not applicable. Computed FIB-4 Calculation unavailable. One or more values for this score either were not found within the given timeframe or did not fit some other criterion. 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) PAST SURGICAL HISTORY Procedure Laterality Date , CLASSIC, ANTE/POST CA 02/27/88, 06/03/91 x2 COLPOSCOPY CERVIX UPPER/ADJACENT VAGINA 1999 LEEP LAPAROSCOPY DIAGNOSTIC for fertility NEUROPLASTY &/TRANSPOS MEDIAN NRV CARPAL TUNNE 04-26-13 Carpal tunnel decomp, left PAST SURGICAL HISTORY OF 2002 Left ureter obstruction/stent scope PAST SURGICAL HISTORY OF 06-26-2001 Rt ankle fx repair with plates/screws PAST SURGICAL HISTORY OF right CTR PAST SURGICAL HISTORY OF 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 ICD-10: E10.65 ICD-10: E11.65 (insulin dependent) 4 Each 3 Blood-Glucose Transmitter (DEXCOM G6 TRANSMITTER) jeff 1 Device every 10 days. 3 Each 4 Blood-Glucose Meter,Continuous (DEXCOM G6 TRAP SETTER) misc Use as directed to monitor blood glucose 4-6 times per day. ICD-10: E10.65 ICD-10: E11.65 (insulin dependent) 2 Each 5 Blood-Glucose Meter,Continuous (DEXCOM G7 TRAP SETTER) misc 1 Each every 10 days. 2 Each 5 aspirin, enteric coated (ASPIRIN, ENTERIC COATED) 81 mg EC tablet Take 1 tablet by mouth once daily. ADULT MUTIVITAMIN W/ EXTRA D GUMMY Take by mouth. Blood-Glucose Meter,Continuous (DEXCOM G7 TRAP SETTER) misc Use as directed to monitor blood glucose 4-6 times per day. ICD-10: E10.65 ICD-10: E11.65 (insulin dependent) 1 Each 3 Infusion Set for Insulin Pump (JUSTUS INFUSION SET) iset Change it 3 days 30 Each 4 Insulin Pump Syringe (PARADIGM RESERVOIR) 1.8 mL misc Use as needed 30 Each 4 insulin lispro (HUMALOG U-100 INSULIN) 100 unit/mL injection Inject SQ as directed in insulin pump up to 100 units daily 100 mL 4 glucagon 3 mg/actuation nasal spray (BAQSIMI) Use 1 Chandler in the nose as needed for low blood sugar. May repeat after 15 minutes using a new device if there is no response. 1 Each 4 aspirin (ASPIR-81 ORAL) Take by mouth. atorvastatin (LIPITOR) 40 mg tablet Take 40 mg by mouth once daily. scopolamine (TRANSDERM-SCOP) patch 1.5 mg/72 hr (delivers 1 mg over 3 days) Apply 1 disc behind the ear at least 4 hours prior to exposure and every 3 days as needed. 1 Patch 0 ondansetron HCl (ZOFRAN ORAL) Take by mouth. venlafaxine ER (EFFEXOR XR) 150 mg 24 hr capsule TAKE 1 CAPSULE DAILY IN THE MORNING venlafaxine (EFFEXOR) 75 mg tablet TAKE 1 TABLET DAILY AT BEDTIME medroxyPROGESTERone (PROVERA, CYCRIN) 2.5 mg tablet Take 2.5 mg by mouth once daily. Estradiol (ESTRACE) 0.5 mg tablet Take 0.5 mg by mouth once daily. fentaNYL (DURAGESIC) 50 mcg/hr meclizine (ANTIVERT) 25 mg tab Take 25 mg by mouth twice daily as needed. insulin lispro (HUMALOG) 100 unit/mL injection Inject SQ as directed in insulin pump up to 100 units daily 9 Vial 3 Multivitamin capsule Take 1 capsule by mouth once daily. gabapentin (NEURONTIN) 800 mg tablet Take 1 tablet by mouth four times daily. 28 tablet 0 glucagon, human recombinant, (GLUCAGON EMERGENCY) 1 mg injection 1 mg as directed. INJECT FOR INSULIN SHOCK 1 Each 11 losartan (COZAAR) 50 mg ORAL tablet Take 1 tablet by mouth once daily. 90 tablet 3 Catheter 14-16 Fr- Misc Misc use as directed four times a day 120 Each 11 No current facility-administered medications for this visit. ALLERGIES Allergen Reactions Levofloxacin Other: See Comments insomnia Antihistamines Intolerance (benadryl) Make her hyper Metoclopramide Intolerance reglan Nitrofuran Analogues Intolerance macrobid Phenothiazines Intolerance compazine FAMILY HISTORY Problem Relation Age of Onset Heart Father colon polyps other (spinal stenosis [Other]) Father Heart Sister Diabetes Son Anesthesia Problems No Family History Social History Tobacco Use Smoking status: Former Current packs/day: 0.00 Average packs/day: 1 pack/day for 8.0 years (8.0 ttl pk-yrs) Types: Cigarettes Start date: 08/28/1978 Quit date: 08/28/1986 Years since quittin.9 Smokeless tobacco: Never Vaping Use Vaping status: Never Used Substance Use Topics Alcohol use: No Drug use: No REVIEW OF SYSTEMS: GENERAL:Negative for fever, chills NECK:Negative for significant neck swelling RESPIRATORY: Negative for cough, or shortness of breath CARDIOVASCULAR: Negative for chest pain GASTROINTESTINAL: No nausea, vomiting, or diarrhea GENITOURINARY: No history of dysuria, frequency or incontinence MUSCULOSKELETAL: Negative for joint pain or swelling NEUROLOGIC:Negative for focal numbness or weakness SKIN:Negative for rash PSYCHIATRIC: Negative for mood disorder and recent psychosocial stressors. The remainder of the ROS was negative. Physical Examination Wt 91.6 kg (201 lb 15.1 oz) LMP (LMP Unknown) BMI 36.23 kg/m General: Awake, Alert, in no acute distress CVS: RRR RS: CTAB Abdomen: Soft, non tender Neuro: AAOx3 Skin: No obvious skin rash, warm to touch Feet:No deformities, ulcers, calluses PREVIOUS LAB RESULTS: Hemoglobin A1C Date Value 11/10/2022 6.9 % 05/03/2016 6.8 09/17/2013 7.3 % Albumin (g/dL) Date Value 09/17/2013 4.3 Cholesterol, Total (mg/dL) Date Value 09/17/2013 159 HDL Cholesterol (mg/dL) Date Value 09/17/2013 118 LDL Cholesterol (mg/dL) Date Value 09/17/2013 10 Triglyceride (mg/dL) Date Value 09/17/2013 154 ] Glucose (mg/dL) Date Value 11/10/2022 42 (L) BUN (mg/dL) Date Value 11/10/2022 21 Creatinine (mg/dL) Date Value 11/10/2022 1.27 (H) Sodium (mmol/L) Date Value 11/10/2022 141 Potassium (mmol/L) Date Value 11/10/2022 4.1 Chloride (mmol/L) Date Value 11/10/2022 101 CO2 (mmol/L) Date Value 11/10/2022 31 (H) Protein, Total (g/dL) Date Value 09/17/2013 8.0 Albumin (g/dL) Date Value 09/17/2013 4.3 Calcium, Total (mg/dL) Date Value 11/10/2022 10.6 (H) Alkaline Phosphatase (U/L) Date Value 09/17/2013 83 Bilirubin, Total (mg/dL) Date Value 09/17/2013 0.2 AST (U/L) Date Value 09/17/2013 20 ALT (U/L) Date Value 09/17/2013 12 WBC (k/uL) Date Value 11/10/2022 6.08 RBC (m/uL) Date Value 11/10/2022 3.82 (L) Hemoglobin (g/dL) Date Value 11/10/2022 11.4 (L) Hematocrit (%) Date Value 11/10/2022 34.8 (L) MCV (fL) Date Value 11/10/2022 91.1 MCH (pg) Date Value 11/10/2022 29.8 MCHC (g/dL) Date Value 11/10/2022 32.8 RDW-CV (%) Date Value 11/10/2022 12.0 Platelet Count (k/uL) Date Value 11/10/2022 250 MPV (fL) Date Value 11/10/2022 9.6 Albumin/Creat Ratio (mg/g) Date Value 12/08/2023 18 02/25/2010 92 (H) Protein, Urine (no units) Date Value 11/10/2022 Trace 07/17/2007 NEG Creatinine, Ur Random (UCRR) (mg/dL) Date Value 12/08/2023 69.2 02/25/2010 20.2 Component Ref Range & Units 2 mo ago HEMOGLOBIN A1C <5.7 % 6.8 High Component Ref Range & Units 10 mo ago THYROID STIMULATING HORMONE 0.465 - 4.680 uIU/mL 2.183 Resulting Agency [facility]AN[facility]ACQU[facility] Specimen Collected: 09/21/23 9:54 AM IMPRESSIONS AND RECOMMENDATIONS: Jael Benson is a 58 year old female who presents today for follow up for diabetes. 1. T1 DM: With neuropathy and retinopathy -Patient has a new pump and is now on omnipod and dexcom G6. She has adapted nicely to the new pump. -Her A1c today is 6.3% and this patient is at this target on current regimen, without excessive hypoglycemia. We will continue the current regimen. I discussed with the patient regarding hypoglycemia episodes. She reports they are very mild and her is helping her monitor it. She has glucagon in the car, at home, in multiple places but has never required to use it. -will continue same settings for now. BG control is at target at 82% of the time in the last week, and patient is t having very few hypoglycemia episodes. -Neuropathy is stable, and patient is on gabapentin 800mg BID. -Has history of retinopathy and left eye prothesis. Will see the painter structural steel in the near future. -Also discussed with the patient regarding weight gain, she is aware she gained weight since the last visit and attributes this to the new medication she tried for a month. She has not discontinue it and we will try her best to eat healthy and start exercising. A healthy diet emphasizes limited consumption of red and processed meats, unhealthy fats (saturated and industrial trans-fats), sugar, sodium, and alcohol, and a greater intake of fruits, vegetables, legumes, nuts, and whole grains. I also encouraged 30min of physical activity 5 days a week. A reasonable initial regimen is 10 minutes of stretching and warm-up, followed by 20 minutes of gentle aerobic exercise such as walking, cycling, or rowing. The exercise should be performed regularly (at least three to five times per week) and preferably at the same time in relation to meals and insulin injections in patients treated with insulin. -Will encourage weight loss with a goal of 3-7% reduction in 3-6 months. 2. Hypertension/BP control: BP goal for patients with diabetes is < 130/80. This patient is not at target on current regimen. I will defer management of this to their primary care physician. Pt reports it was high because she was anxious for the visit. Will continue to monitor. 3. Lipids: Target LDL cholesterol in patients with diabetes is less than 70, less than 55 if patient has overt CVD. This patient is currently at target on statin therapy. 4. Nephropathy screening: Annual measurement of urine albumin excretion is recommended in patients with diabetes. This patient is up to date and UAC is 18. 5. Ophthalmology: Annual dilated eye exams are recommended for patients with type 1 and type 2 diabetes. Patient will see ophthalmology today. She has history of retinopathy and had left eye prosthesis. 6. Podiatry: Foot exam as above. Due for podiatry visit.On gabapentin 800mg BID for stable neuropathy. This note was created using [employer] dictation software. You may find errors that were missed during proofreading. They are purely unintentional and if there are any concerns regarding this dictation, please do not hesitate to contact the dictating provider for clarification. Discussed with Attending Staff, Addendum to follow. Fern Flowers MD Clinical Fellow [facility] [place] I spent a total of mre than 60 minutes on the date of the service which included preparing to see the patient, completing clinical documentation, obtaining and/or reviewing separately obtained history, and performing a medically appropriate examination. [facility] STAFF PHYSICIAN NOTE OF PERSONAL INVOLVEMENT IN CARE I have reviewed the history and physical examination obtained and documented by the fellow and I personally participated in the chowdhury components. I have discussed the case and management of the patient's care. The following comments revise or confirm relevant chowdhury components of their note. IMPRESSION: This is a 59 year old female who presents with type 1 DM PLAN: continue same regimen on omnipod and dexcom G6 - Target HbA1C is less than 7.0% per ADA guidelines. This patient is at this target on current regimen, without excessive hypoglycemia. We will continue the current regimen. -will continue same settings for now. BG control is at target at 93% of the time, and patient not having hypoglycemia episodes. -Will renew CGM prescription (Dexcom/FSL2/3) On gabapentin 800mg BID. - The patient was reminded to check her blood glucose fasting in the morning and 3 times a day(before meals) and to record the data in a logbook/will. - She was advised to bring their logbook to each office visit. Plan of care discussed with Provider SIGNATURE: Heracloi Frances MD DATE of SERVICE: July 17, 2024 TIME of SERVICE: 3:07 PM documented in this encounter [facility] 07-17-2024 Instructions Obinna Brandt MA - 07/17/2024 2:15 PM EST Thank you for choosing the [facility] Department of Endocrinology, Diabetes and Metabolism. Did you know that you need to call 48 hours in advance of your scheduled visit, if you are unable to make your appointment? The [facility] [place] thanks you for your commitment, because patients not showing to their appointment results in a lost opportunity for patients to receive [facility] care at the [facility]. To Cancel an appointment, please choose one of the following: - Call the Appointment Call Center at [phone] - From [email or web address], Go to Appointments - Cancel Appts If cancelling, consider your need to reschedule to prevent further delays in your care. To Schedule an appointment, please choose one of the following: - Call the Appointment Call Center at [phone] - From [email or web address], Go to Appointments - Request an Appt documented in this encounter [facility] 06-14-2024 Telephone encounter Note Received a DWO for CGM Form from [employer] for sensors and transmitter. Completed clerical portions of the form and submitted to the provider to complete, review, and sign. DWAYNE URIARTE Oracle Adf Consultant II Endocrinology & Metabolism [facility] X-[address] [facility] 06-14-2024 Miscellaneous Notes Received a DWO for CGM Form from [employer] for sensors and transmitter. Completed clerical portions of the form and submitted to the provider to complete, review, and sign. DWAYNE URIARTE [employer] Adf Consultant II End[facility]inology & Metabolism [facility] X-20 documented in this encounter [facility] 06-13-2024 Evaluation + Plan note Associated Problem(s): Insomnia Controlled After addressing medication(s) compliance, adverse effects, and efficacy of treatment(s), medications for this controlled chronic condition will be continued. [facility] 06-13-2024 Evaluation + Plan note Associated Problem(s): Recurrent major depressive disorder, in remission (HCC) Controlled After addressing medication(s) compliance, adverse effects, and efficacy of treatment(s), medications for this controlled chronic condition will be continued. [facility] 06-13-2024 Evaluation + Plan note Associated Problem(s): Coronary artery disease involving [place] coronary artery of [place] heart without angina pectoris Controlled After addressing medication(s) compliance, adverse effects, and efficacy of treatment(s), medications for this controlled chronic condition will be continued. Asymptomatic [facility] 06-13-2024 Miscellaneous Notes Associated Problem(s): Insomnia Controlled After addressing medication(s) compliance, adverse effects, and efficacy of treatment(s), medications for this controlled chronic condition will be continued. Associated Problem(s): Recurrent major depressive disorder, in remission (HCC) Controlled After addressing medication(s) compliance, adverse effects, and efficacy of treatment(s), medications for this controlled chronic condition will be continued. Associated Problem(s): Coronary artery disease involving [place] coronary artery of [place] heart without angina pectoris Controlled After addressing medication(s) compliance, adverse effects, and efficacy of treatment(s), medications for this controlled chronic condition will be continued. Asymptomatic Associated Problem(s): Chronic painful diabetic neuropathy (CMS/HCC) (HCC) Controlled After addressing medication(s) compliance, adverse effects, and efficacy of treatment(s), medications for this controlled chronic condition will be continued. UDS results pending Yearly LTOT paperwork and meet with [facility] at next visit documented in this encounter [facility] 06-13-2024 Evaluation + Plan note Associated Problem(s): Chronic painful diabetic neuropathy (CMS/HCC) (HCC) Controlled After addressing medication(s) compliance, adverse effects, and efficacy of treatment(s), medications for this controlled chronic condition will be continued. UDS results pending Yearly LTOT paperwork and meet with [facility] at next visit [facility] 06-13-2024 History of Present illness Narrative Images from the original note were not included. [facility] [place] - [address] [facility] [address] Dept: [phone] Dept Loc: [phone] Patient was seen today via Telehealth by agreement and consent. I used the following Telehealth technology: Audio and video capabilities. Patient location: Patient Location: Home. This patient encounter is appropriate and reasonable under the circumstances: transportation issues . The patient has been advised of the potential risks and limitations of this mode of treatment (including but not limited to the absence of in-person examination) and has agreed to be treated in a remote fashion in spite of them. Any and all of the patient's/patient's family's questions on this issue have been answered and I have made no promises or guarantees to the patient. The patient has also been advised to contact this office for worsening conditions or problems, and seek emergency medical treatment and/or call 911 if the patient deems either necessary. The patient stated that they are currently in the state [facility]. If the patient is a minor, permission has been obtained by the parent or guardian for the patient to receive medical care at this visit. Assessment/Plan 1. Psychophysiological insomnia Assessment & Plan: Controlled After addressing medication(s) compliance, adverse effects, and efficacy of treatment(s), medications for this controlled chronic condition will be continued. Orders: - imipramine (Tofranil) 50 MG tablet; Take 1 tablet (50 mg) by mouth Nightly., Starting Mon06/13/2024, Until Mon06/08/2025, Normal 2. Chronic painful diabetic neuropathy (CMS/HCC) ([facility]) Assessment & Plan: Controlled After addressing medication(s) compliance, adverse effects, and efficacy of treatment(s), medications for this controlled chronic condition will be continued. UDS results pending Yearly LTOT paperwork and meet with [facility] at next visit Orders: - gabapentin (Neurontin) 400 MG capsule; Take 1 capsule (400 mg) by mouth 2 times daily., Starting Mon06/13/2024, Until Mon09/11/2024, Normal - fentaNYL (Duragesic) 62.5 MCG/HR; Place 1 patch on the skin Every 72 hours. Do not start before June 19, 2024., Starting Mon06/19/2024, Until Mon07/19/2024, Normal - fentaNYL (Duragesic) 62.5 MCG/HR; Place 1 patch on the skin Every 72 hours. Do not start before July 19, 2024., Starting Mon07/19/2024, Until Mon08/18/2024, Normal - fentaNYL (Duragesic) 62.5 MCG/HR; Place 1 patch on the skin Every 72 hours. Do not start before August 18, 2024., Starting Mon08/18/2024, Until Mon09/17/2024, Normal 3. Recurrent major depressive disorder, in remission ([facility]) Assessment & Plan: Controlled After addressing medication(s) compliance, adverse effects, and efficacy of treatment(s), medications for this controlled chronic condition will be continued. Orders: - venlafaxine (Effexor) 75 MG tablet; Take 1 tablet (75 mg) by mouth Nightly., Starting Mon06/13/2024, Until Mon06/08/2025, Normal - venlafaxine XR (Effexor XR) 150 MG 24 hr capsule; Take 1 capsule (150 mg) by mouth daily., Starting Mon06/13/2024, Until Mon06/08/2025, Normal 4. Coronary artery disease involving [place] coronary artery of [place] heart without angina pectoris Assessment & Plan: Controlled After addressing medication(s) compliance, adverse effects, and efficacy of treatment(s), medications for this controlled chronic condition will be continued. Asymptomatic Orders: - atorvastatin (Lipitor) 40 MG tablet; Take 1 tablet (40 mg) by mouth daily., Starting [place] 06/13/2024, Until 06/08/2025, Normal Health Maintenance Due Topic Colorectal Cancer Screening MMR Vaccines (1 of 1 - Standard series) Diabetes: Dental Exam Mammogram Influenza Vaccine (1) Follow Up: Follow up in 14 weeks (on 09/19/2024) for LTOT, for in-person OV, with PCP or Pod provider. Niecy Addison, 06/13/24 9:20 AM Subjective Jael Benson is a 59 y.o. who presents for a telehealth visit. Reason for visit/Primary concern: Chief Complaint Patient presents with Insomnia LTOT Insomnia Follow up of: insomnia Medication(s) taking: imipramine 50 mg Days in a week that patient misses dose of med(s): none Adverse effects of medication(s): No Takes about 2 hours before bedtime Weight gain from previous medication improved -lost a little Vertigo meds only PRN - rare, no need for refills [facility]: Venlafaxine 150 mg and 75 mg Lipitor Losartan Progesterone Estradiol [facility]: Tofranil Gabapentin Geoff[facility]: Fentanyl Mammogram scheduled next month - [place] UDS done 06/11/24 Eye exam - 04/20 q year Dental exam - will call to make appointment to decide what to do; wants to get implants but unclear if able versus dentures Will get flu shot at pharmacy or [facility] Controlled Substances Monitoring: No data to display OARRs Reviewed. [facility] [place] PAIN [facility]NAG[facility] DRUG PANEL Date Value Ref Range Status 03/16/2022 NEGATIVE NA Final No results found for: TRAMADOLUR Last pain management panel concordant: Yes (UDS pending results 06/11/24) Rationale for use of opioid: To treat moderate or severe pain and functional impairment caused by diagnosis of DM neuropathy Patient did not receive adequate pain control/function with 2 non-opioid treatments including: acetaminophen, ibuprofen, naproxen, adjuvant anticonvulsants, and adjuvantantidepressants at maximum tolerated doses Specialist referral and recommendation: palliative, pain management Opioid prescribed to treat non-cancer/non-malignant pain outside of active cancer treatment, palliative care, end of life/hospice care, sickle cell, severe burn, traumatic crushing of tissue, amputation, major orthopedic surgery. This short-acting opioid is prescribed after confirmation of the following; This patient is not opioid-naive.This patient has received opioid medications for at least 7 days prior to this prescription. An opioid agreement is recorded in the electronic record and confirms discussion of the benefits and risks of opioid therapy. RED FLAGS: Forging or altering a prescription: No Using another person's pain or scheduled medication: No Illegal drugs, including THC, in PNM: No Controlled drugs not prescribed by this office in PNM: No Intoxication: No Overdose: No Legal problems related to controlled substances: No Behavior that threatens staff or physician: No Accident motor vehicle crash: No PAIN ROS How is the pain medication helping your function: much improved: ambulation, bathing and hygiene, grooming, toileting, and dressing Are you having any sleepiness: No Are you having any constipation: No Are you having any mental slowing: No Are you having any sexual dysfunction: No PEG 1 (painon average in the past week with medications): 4 PEG 2 (pain interference with enjoyment of life): 1 PEG 3 (pain interference with normal activity): 1 SELF MANAGEMENT: The patient is interested in this area of self management: Meaningful life activities (familly, household responsibilities, work) Follow up of: hyperlipidemia Medication(s) taking: lipitor Days in a week that patient misses dose of med(s): none Adverse effects of medication(s): No Follow up of: depression Medication(s) taking: venlafaxine Days in a week that patient misses dose of med(s): none Adverse effects of medication(s): No Allergies Allergen Reactions Oxycodone Anxiety and Other Severe insomnia Other reaction(s): Other (See Comments), Other (See Comments) Levofloxacin Other reaction(s): Other (See Comments), Other: See Comments insomnia insomnia Other reaction(s): anxious, Other (See Comments), Other: See Comments Diphenhydramine Other reaction(s): Agitation, Hyperactivity hyper Other reaction(s): Agitation, Other Elavil [Amitriptyline] Other Weight gain Iodinated Contrast Media Other reaction(s): Vomiting Metoclopramide Other Other reaction(s): Hyperactivity, Intolerance reglan hyper Other reaction(s): Intolerance, Other, Other (See Comments) Nitrofurantoin Other reaction(s): Intolerance macrobid Other reaction(s): Other (See Comments) Phenothiazines Other reaction(s): Hyperactivity, Intolerance compazine hyper Other reaction(s): Intolerance, Other Review of Systems Psychiatric/Behavioral: The patient has insomnia. [] Problem list and/or medical history reviewed/updated as appropriate [] Medication list reviewed/updated [] Allergies reviewed/updated Last 3 PHQ-9 Scores No data found in the last 10 encounters. Last 3 JUVE-7 Scores No data found in the last 10 encounters. PHQ-2/9 Objective (if obtainable) Physical Exam Constitutional: General: She is not in acute distress. Appearance: Normal appearance. HENT: Head: Normocephalic. Eyes: Extraocular Movements: Extraocular movements intact. Conjunctiva/sclera: Conjunctivae normal. Pulmonary: Effort: Pulmonary effort is normal. No respiratory distress. Neurological: General: No focal deficit present. Mental Status: She is alert. Mental status is at baseline. Psychiatric: Mood and Affect: Mood normal. Behavior: Behavior normal. Thought Content: Thought content normal. Judgment: Judgment normal. documented in this encounter [facility] 06-03-2024 Note EMR reviewed PMHX: Asthma, CAD, HTN, DM CM made patient outreach. Patient answered. CM introduced self and [facility] program. Patient noted that she was doing really good. Patient denied any health concerns at time of outreach. Patient denied any needs at time of outreach. Patient most recently recorded blood pressure was 127/81 on 09/21/23 and A1C of 6.8 and BGT 148 on 09/21/23. Patient noted that she has everything she needs. Patient thanked CM for calling then ended call. Patient without any recent hospital admissions. Patient last ED visit was noted to be 04/06/23 for mosquito bite with antibiotic tx. Prior to that 12/17/21 for mechanical fall. Outreach was brief. No future outreaches to be scheduled at this time. Patient without identified needs. Patient will not be enrolled in CM program management at this time. Future appointments: 06/13 Family medicine [facility] 05-23-2024 Telephone encounter Note Chart reviewed for compliance with [facility] refill guidelines. Screening criteria met. Last appointment 03/27/2024. Next appointment 06/13/2024. Last labs n/a . Please review and send prescription as appropriate. If no future appointment noted, the last office visit notes were reviewed to determine follow-up time frame and this note forwarded to front end developer designer to schedule. [facility] 05-23-2024 Miscellaneous Notes Chart reviewed for compliance with [facility] refill guidelines. Screening criteria met. Last appointment 03/27/2024. Next appointment 06/13/2024. Last labs n/a . Please review and send prescription as appropriate. If no future appointment noted, the last office visit notes were reviewed to determine follow-up time frame and this note forwarded to front end developer designer to schedule. documented in this encounter [facility] 05-20-2024 Telephone encounter Note Requester: Patient Patients last Endocrinology visit occurred 12/08/2023. Follow-up evaluation has been established Upcoming Endocrinology Appointments - Next 365 Days Visit Type Date Time Department EST MARCIN PATIENT 05/29/2024 4:30 PM ENDO MAIN . Requested Prescriptions Pending Prescriptions Disp Refills Blood-Glucose Sensor (DEXCOM G6 SENSOR) jeff 4 Each 3 Sig: Use as directed to monitor blood glucose 4-6 times per day. ICD-10: E10.65 ICD-10: E11.65 (insulin dependent) Blood-Glucose Transmitter (DEXCOM G6 TRANSMITTER) jeff Signed Prescriptions Disp Refills Blood-Glucose Meter,Continuous (DEXCOM G6 TRAP SETTER) misc 2 Each 5 Sig: Use as directed to monitor blood glucose 4-6 times per day. ICD-10: E10.65 ICD-10: E11.65 (insulin dependent) Authorizing Provider: FERN JACKSON Blood-Glucose Meter,Continuous (DEXCOM G7 TRAP SETTER) misc 2 Each 5 Si Each every 10 days. Authorizing Provider: FERN JACKSON If patient is due for an appointment please route to provider for refill consideration and also to the endo scheduling pool. PSS NOTE: Patient needs scheduled appointment No [facility] 05-20-2024 Miscellaneous Notes Requester: Patient Patients last Endocrinology visit occurred 12/08/2023. Follow-up evaluation has been established Upcoming Endocrinology Appointments - Next 365 Days Visit Type Date Time Department EST MARCIN PATIENT 05/29/2024 4:30 PM ENDO MAIN . Requested Prescriptions Pending Prescriptions Disp Refills Blood-Glucose Sensor (DEXCOM G6 SENSOR) jeff 4 Each 3 Sig: Use as directed to monitor blood glucose 4-6 times per day. ICD-10: E10.65 ICD-10: E11.65 (insulin dependent) Blood-Glucose Transmitter (DEXCOM G6 TRANSMITTER) jeff Signed Prescriptions Disp Refills Blood-Glucose Meter,Continuous (DEXCOM G6 TRAP SETTER) misc 2 Each 5 Sig: Use as directed to monitor blood glucose 4-6 times per day. ICD-10: E10.65 ICD-10: E11.65 (insulin dependent) Authorizing Provider: FERN JACKSON Blood-Glucose Meter,Continuous (DEXCOM G7 TRAP SETTER) misc 2 Each 5 Si Each every 10 days. Authorizing Provider: FERN JACKSON If patient is due for an appointment please route to provider for refill consideration and also to the endo scheduling pool. PSS NOTE: Patient needs scheduled appointment No documented in this encounter [facility] 04-25-2024 Telephone encounter Note Received a prescription form from [employer] for patient's Omnipod 5 PODS. Completed clerical portion of the form and submitted to the provider to sign. DWAYNE URIARTE Oracle Adf Consultant II Endocrinology & Metabolism [facility] X-[address] [facility] 04-25-2024 Miscellaneous Notes Received a prescription form from [facility] for patient's Omnipod 5 PODS. Completed clerical portion of the form and submitted to the provider to sign. DWAYNE URIARTE Oracle Adf Consultant II Endocrinology & Metabolism [facility] X-20 documented in this encounter [facility] 04-24-2024 Note HNO ID: [id number] Author: LOC HDEZ MD Service: ? Author Type: Physician Type: Progress Notes Filed: 04/24/2024 16:12 Note Text: [facility] Department Date: April 24, 2024 - 2:18 PM Jael Benson is self referred. Chief Complaint: neuropathy SUBJECTIVE: Jael Benson, is a 58 year old female who presents with diabetic peripheral neuropthy. The pain started 20+ years ago, with no known injury or trauma. The pain onset was gradual in nature. The patient states that the current pain is persistent. Her pain is located in the bilateral feet. The pain is described as sharp pain. The pain intensity is rated 7. The pain is exacerbated by no change in pain symptoms with position or activity and relieved by no known factors. Symptoms interfere with physical activity, walking, sleeping, sitting, bathing, driving, cooking, household cleaning, lifting, and social activities. Litigation: No. Worker's Compensation: No. Prior pain treatment has included: Medication(s): Fentanyl patch, gabapentin Patient Entered Questionnaires PROMIS Score Percentiles 10/30/2022 11/09/2022 04/24/2024 PROMIS Global Health Scale Physical Health Percentile 31 31 31 7 Mental Health Percentile 63 63 63 19* Multiple values from one day are sorted in reverse-chronological order 04/24/2024 Physical Health Physical Function Percentile 12 Pain Interference Percentile 10 Percentiles provide an indication of how the patient's score ranks in relation to the general population. Higher percentile rankings indicate better function/quality of life. 50th percentile is the average of the general population and indicates half of respondents had a worse score. > 31st percentile is within normal limits or better * < 31st percentile is at least ? SD worse than population, which may be clinically relevant < 16th percentile is at least 1 SD worse than population and warrants attention ALLERGIES Allergen Reactions Levofloxacin Other: See Comments insomnia Antihistamines Intolerance (benadryl) Make her hyper Metoclopramide Intolerance reglan Nitrofuran Analogues Intolerance macrobid Phenothiazines Intolerance compazine Current Medications: Pain medications reviewed and reconciled in the medication list: Yes. Current Outpatient Medications Medication Sig aspirin, enteric coated (ASPIRIN, ENTERIC COATED) 81 mg EC tablet Take 1 tablet by mouth once daily. Blood-Glucose Meter,Continuous (DEXCOM G7 TRAP SETTER) misc 1 Each. ADULT MUTIVITAMIN W/ EXTRA D GUMMY Take by mouth. Blood-Glucose Meter,Continuous (DEXCOM G6 TRAP SETTER) misc Use as directed to monitor blood glucose 4-6 times per day. ICD-10: E10.65 ICD-10: E11.65 (insulin dependent) Blood-Glucose Meter,Continuous (DEXCOM G7 TRAP SETTER) misc Use as directed to monitor blood glucose 4-6 times per day. ICD-10: E10.65 ICD-10: E11.65 (insulin dependent) Infusion Set for Insulin Pump (JUSTUS INFUSION SET) iset Change it 3 days Insulin Pump Syringe (PARADIGM RESERVOIR) 1.8 mL misc Use as needed insulin lispro (HUMALOG U-100 INSULIN) 100 unit/mL injection Inject SQ as directed in insulin pump up to 100 units daily glucagon 3 mg/actuation nasal spray (BAQSIMI) Use 1 Chandler in the nose as needed for low blood sugar. May repeat after 15 minutes using a new device if there is no response. Blood-Glucose Sensor (DEXCOM G6 SENSOR) jeff Use as directed to monitor blood glucose 4-6 times per day. ICD-10: E10.65 ICD-10: E11.65 (insulin dependent) aspirin (ASPIR-81 ORAL) Take by mouth. atorvastatin (LIPITOR) 40 mg tablet Take 40 mg by mouth once daily. scopolamine (TRANSDERM-SCOP) patch 1.5 mg/72 hr (delivers 1 mg over 3 days) Apply 1 disc behind the ear at least 4 hours prior to exposure and every 3 days as needed. ondansetron HCl (ZOFRAN ORAL) Take by mouth. venlafaxine ER (EFFEXOR XR) 150 mg 24 hr capsule TAKE 1 CAPSULE DAILY IN THE MORNING venlafaxine (EFFEXOR) 75 mg tablet TAKE 1 TABLET DAILY AT BEDTIME medroxyPROGESTERone (PROVERA, CYCRIN) 2.5 mg tablet Take 2.5 mg by mouth once daily. Estradiol (ESTRACE) 0.5 mg tablet Take 0.5 mg by mouth once daily. fentaNYL (DURAGESIC) 50 mcg/hr meclizine (ANTIVERT) 25 mg tab Take 25 mg by mouth twice daily as needed. insulin lispro (HUMALOG) 100 unit/mL injection Inject SQ as directed in insulin pump up to 100 units daily Multivitamin capsule Take 1 capsule by mouth once daily. gabapentin (NEURONTIN) 800 mg tablet Take 1 tablet by mouth four times daily. glucagon, human recombinant, (GLUCAGON EMERGENCY) 1 mg injection 1 mg as directed. INJECT FOR INSULIN SHOCK losartan (COZAAR) 50 mg ORAL tablet Take 1 tablet by mouth once daily. Catheter 14-16 Fr- Misc Misc use as directed four times a day No current facility-administered medications for this visit. PAST MEDICAL HISTORY No date: Asthma Comment: diagnosed in childhood 11/10/2022: HTN (hypertensi (more content not included)... [facility] 04-24-2024 History of Present illness Narrative [facility] Department Date: April 24, 2024 - 2:18 PM Jael Benson is self referred. Chief Complaint: neuropathy SUBJECTIVE: Jael Benson, is a 58 year old female who presents with diabetic peripheral neuropthy. The pain started 20+ years ago, with no known injury or trauma. The pain onset was gradual in nature. The patient states that the current pain is persistent. Her pain is located in the bilateral feet. The pain is described as sharp pain. The pain intensity is rated 7. The pain is exacerbated by no change in pain symptoms with position or activity and relieved by no known factors. Symptoms interfere with physical activity, walking, sleeping, sitting, bathing, driving, cooking, household cleaning, lifting, and social activities. Litigation: No. Worker's Compensation: No. Prior pain treatment has included: Medication(s): Fentanyl patch, gabapentin Patient Entered Questionnaires PROMIS Score Percentiles 10/30/2022 11/09/2022 04/24/2024 PROMIS Global Health Scale Physical Health Percentile 31 31 31 7 Mental Health Percentile 63 63 63 19* Multiple values from one day are sorted in reverse-chronological order 04/24/2024 Physical Health Physical Function Percentile 12 Pain Interference Percentile 10 Percentiles provide an indication of how the patient's score ranks in relation to the general population. Higher percentile rankings indicate better function/quality of life. 50th percentile is the average of the general population and indicates half of respondents had a worse score. > 31st percentile is within normal limits or better * < 31st percentile is at least SD worse than population, which may be clinically relevant < 16th percentile is at least 1 SD worse than population and warrants attention ALLERGIES Allergen Reactions Levofloxacin Other: See Comments insomnia Antihistamines Intolerance (benadryl) Make her hyper Metoclopramide Intolerance reglan Nitrofuran Analogues Intolerance macrobid Phenothiazines Intolerance compazine Current Medications: Pain medications reviewed and reconciled in the medication list: Yes. Current Outpatient Medications Medication Sig aspirin, enteric coated (ASPIRIN, ENTERIC COATED) 81 mg EC tablet Take 1 tablet by mouth once daily. Blood-Glucose Meter,Continuous (DEXCOM G7 TRAP SETTER) misc 1 Each. ADULT MUTIVITAMIN W/ EXTRA D GUMMY Take by mouth. Blood-Glucose Meter,Continuous (DEXCOM G6 TRAP SETTER) misc Use as directed to monitor blood glucose 4-6 times per day. ICD-10: E10.65 ICD-10: E11.65 (insulin dependent) Blood-Glucose Meter,Continuous (DEXCOM G7 TRAP SETTER) misc Use as directed to monitor blood glucose 4-6 times per day. ICD-10: E10.65 ICD-10: E11.65 (insulin dependent) Infusion Set for Insulin Pump (JUSTUS INFUSION SET) iset Change it 3 days Insulin Pump Syringe (PARADIGM RESERVOIR) 1.8 mL misc Use as needed insulin lispro (HUMALOG U-100 INSULIN) 100 unit/mL injection Inject SQ as directed in insulin pump up to 100 units daily glucagon 3 mg/actuation nasal spray (BAQSIMI) Use 1 Chandler in the nose as needed for low blood sugar. May repeat after 15 minutes using a new device if there is no response. Blood-Glucose Sensor (DEXCOM G6 SENSOR) jeff Use as directed to monitor blood glucose 4-6 times per day. ICD-10: E10.65 ICD-10: E11.65 (insulin dependent) aspirin (ASPIR-81 ORAL) Take by mouth. atorvastatin (LIPITOR) 40 mg tablet Take 40 mg by mouth once daily. scopolamine (TRANSDERM-SCOP) patch 1.5 mg/72 hr (delivers 1 mg over 3 days) Apply 1 disc behind the ear at least 4 hours prior to exposure and every 3 days as needed. ondansetron HCl (ZOFRAN ORAL) Take by mouth. venlafaxine ER (EFFEXOR XR) 150 mg 24 hr capsule TAKE 1 CAPSULE DAILY IN THE MORNING venlafaxine (EFFEXOR) 75 mg tablet TAKE 1 TABLET DAILY AT BEDTIME medroxyPROGESTERone (PROVERA, CYCRIN) 2.5 mg tablet Take 2.5 mg by mouth once daily. Estradiol (ESTRACE) 0.5 mg tablet Take 0.5 mg by mouth once daily. fentaNYL (DURAGESIC) 50 mcg/hr meclizine (ANTIVERT) 25 mg tab Take 25 mg by mouth twice daily as needed. insulin lispro (HUMALOG) 100 unit/mL injection Inject SQ as directed in insulin pump up to 100 units daily Multivitamin capsule Take 1 capsule by mouth once daily. gabapentin (NEURONTIN) 800 mg tablet Take 1 tablet by mouth four times daily. glucagon, human recombinant, (GLUCAGON EMERGENCY) 1 mg injection 1 mg as directed. INJECT FOR INSULIN SHOCK losartan (COZAAR) 50 mg ORAL tablet Take 1 tablet by mouth once daily. Catheter 14-16 Fr- Misc Misc use as directed four times a day No current facility-administered medications for this visit. 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) PAST SURGICAL HISTORY 02/27/88, 06/03/91: , CLASSIC, ANTE/POST CA Comment: x2 1999: COLPOSCOPY CERVIX UPPER/ADJACENT VAGINA Comment: LEEP : LAPAROSCOPY DIAGNOSTIC Comment: for fertility 04-26-13: NEUROPLASTY &/TRANSPOS MEDIAN NRV CARPAL TUNNE Comment: Carpal tunnel decomp, left 2002: PAST SURGICAL HISTORY OF Comment: Left ureter obstruction/stent scope 06-26-2001: PAST SURGICAL HISTORY OF Comment: Rt ankle fx repair with plates/screws : PAST SURGICAL HISTORY OF Comment: right CTR 2007: PAST SURGICAL HISTORY OF Comment: left eye enucleation d/t pain FAMILY HISTORY Problem Relation Age of Onset Heart Father colon polyps other (spinal stenosis [Other]) Father Heart Sister Diabetes Son Anesthesia Problems No Family History Social History: Alcohol Use: No Tobacco Use: 1 packs/day, for 8 years. Quit 08/28/1986. Types: Cigarettes Drug Use: No Employer And Job Title: None on file Years Of Education Completed: Not specified Marital Status: REVIEW OF SYSTEMS: Constitutional: (-) Fever (+) Night Sweats (-) Weight Gain (-) Weight Loss (+) Fatigue Cardiovascular: (-) Chest Pain (-) Palpitations (-) Lightheadedness (-) Swelling of Ankles (-) Hx Heart Surgery Respiratory: (-) Shortness of Breath (-) Cough (-) Wheezing (+) Snoring Gastrointestinal: (-) Incontinence (-) Abdominal Pain (-) Diarrhea (-) Constipation (-) Nausea/Vomiting (-) Heart Burn Endocrine: (-) Thyroid Disorder (+) Diabetes Hematologic: (-) Prolonged Bleeding (-) Easy Bruising Genitourinary: (-) Incontinence (-) Frequency (-) Urinary Urgency Skin: (-) Rashes (-) Itching (-) Other Lesions Neurologic: (-) Headache (-) Double Vision (-) Confusion (-) Paralysis (-) Vertigo (-) Syncope Psychiatric: (-) Depression (-) Anxiety OARRS Report reviewed: Yes Narcotic Agreement reviewed and signed?: N/A Baseline Urine Toxicology obtained: N/A Urine Panel: No results found for: UQCANN, UQBNZL, GLO9ZJS, UQAMPH, UQMAMP, UQBUPRE, UQNORBUP, UQMTHD, UQEDDP, UQTRAM, UQDTRM, UQFNTL, UQNFTL, UQCODE, UQMORP, UQDCDN, UQHCOD, UQOXYC, UQHMOR, UQOXYM, UQCREA, UQPH, UQSPGR, UQOXID, UQSPQ The pain panel was N/A OBJECTIVE: Performed in conjunction with observation. The patient was alert and oriented x3. The patient was in no acute distress. Lungs: Clear, negative for dyspnea or distress. CVR: Negative for SOB or peripheral edema. Neck: Supple. The range of motion was intact. Back: Range of motion of the trunk was back. Negative focal tenderness. SLR: Negative Extremities: no reported edema or erythema. Motor: Negative focal deficits Sensory: Intact light touch in the bilateral lower extremity to the level of the ankles. Gait: Slow but within normal limits Medical record and diagnostic tests reviewed for today's visit: The [facility] EMR was reviewed during the visit IMAGING STUDIES: No new imaging studies were reviewed during this office visit. ASSESSMENT: (E11.42) Diabetic peripheral neuropathy (HCC) (primary encounter diagnosis) Discussion: A discussion was entertained regarding multicomponent pain source. Discussed conservative options and focus on improvement of function and the concerns of ongoing or developing chronic pain. Discussed the rationale behind interventional approach and how it can facilitate improvement of pain but also diagnostic information that procedures provide. shelter use of any opioid pain medication is discouraged in chronic benign pain. PLAN: 1. Patient has intractable diabetic peripheral neuropathy pain. The patient failed conservative treatments and currently is on high-dose opioid therapy. Recommend a trial of spinal cord stimulator. Recommend going through psychological evaluation for clearance. 2. The procedure including risks, benefits, options and personnel performing the procedure was discussed with the patient. The use of special equipment was reviewed. There are no contraindications to the procedure. The patient expressed understanding and agreed to proceed. 3. No new medication was prescribed. 4. Counseled patient regarding the importance of activity modification and exercise. 5. Follow up: Upon completion of psychological evaluation. The above plan and management options were discussed with patient. The patient is in agreement with the above and verbalized understanding. I have discussed and confirmed the above treatment plan with the patient and I have reviewed the nurses notes and I am aware of the family/social history. I have confirmed ROS findings. Loc Hdez MD 1. This document has been created with the use of voice recognition technology. It may contain inaccuracies: (e.g. misspellings, inaccurate syntax or word sense) that have escaped review. 2. The nurse practitioner, nursing staff and medical assistants are a major part of YOUR TREATMENT TEAM and will be handling your phone calls and inquiries, if any. Unless explicitly told otherwise at the time of your office visit, your study results and ensuing treatment plans will be discussed during your follow-up appointment. If you do not have a follow-up appointment and wish to discuss any issues, please set up an appointment. 3. It is my practice to not fill disability or any other insurance-related forms/documentation. All of the office notes, study results, and other pertinent documentation generated as part of your evaluation will be available to you and to your Primary Care Physician (PCP). Use of this material to complete such forms will be at the discretion of your PCP/referring physician. April 24, 2024 cc: No referring provider defined for this encounter. Phone: N/A Fax: Results of consultation to be transmitted via electronic medical record for those providers who practice within [facility] or with access to [employer] via MD Connect, or via letter. documented in this encounter [facility] 04-23-2024 Telephone encounter Note Chart reviewed for compliance with [facility] refill guidelines. Screening criteria met. Last appointment 03/27/24. Next appointment 06/13/24. Last labs . Please review and send prescription as appropriate. If no future appointment noted, the last office visit notes were reviewed to determine follow-up time frame and this note forwarded to front end developer designer to schedule. [facility] 04-23-2024 Miscellaneous Notes Chart reviewed for compliance with [facility] refill guidelines. Screening criteria met. Last appointment 03/27/24. Next appointment 06/13/24. Last labs . Please review and send prescription as appropriate. If no future appointment noted, the last office visit notes were reviewed to determine follow-up time frame and this note forwarded to front end developer designer to schedule. documented in this encounter [facility] 04-05-2024 Telephone encounter Note Insulin Pump Post-Training Follow Up Pt started on Omnipod 5 pump on April 04, 2024 Pt states they have successfully changed infusion set: no, first change of the pod is due this afternoon. Current pump settings verified via online portal or discussion with patient: no, patient is having issues with portal linking their Omnipod to our [facility] account. Did not bring their login information with them to initial training. Encouraged to reach out to [employer] support line or bring their login information with them to a follow up appointment where clinic staff can assist. Secure message with step by step instructions sent to patient to walk them through set-up was sent. Patient reports hypoglycemia under 70 mg/dL in the last 3 days: yes but treated and it recovered quickly Patient reports hyperglycemia over 250 mg/dL in the last 3 days: no, reports yesterday her sugars were very consistently in the 120-140 range. Patient concerns: none were stated other than having an issue with the portal linking Other issues: none Follow-up with educator scheduled: none Follow-up with provider scheduled: 06/12/[address] [facility] Work Phone: 04-05-2024 Miscellaneous Notes Insulin Pump Post-Training Follow Up Pt started on Omnipod 5 pump on April 04, 2024 Pt states they have successfully changed infusion set: no, first change of the pod is due this afternoon. Current pump settings verified via online portal or discussion with patient: no, patient is having issues with portal linking their Omnipod to our [facility] account. Did not bring their login information with them to initial training. Encouraged to reach out to [employer] support line or bring their login information with them to a follow up appointment where clinic staff can assist. Secure message with step by step instructions sent to patient to walk them through set-up was sent. Patient reports hypoglycemia under 70 mg/dL in the last 3 days: yes but treated and it recovered quickly Patient reports hyperglycemia over 250 mg/dL in the last 3 days: no, reports yesterday her sugars were very consistently in the 120-140 range. Patient concerns: none were stated other than having an issue with the portal linking Other issues: none Follow-up with educator scheduled: none Follow-up with provider scheduled: 06/12/2024 documented in this encounter [facility] 04-02-2024 Note HNO ID: [id number] Author: JAEL CIFUENTES RN Service: ? Author Type: Registered Nurse Type: Progress Notes Filed: 04/02/2024 15:20 Note Text: Type of visit: In person individual Patient started today on Omnipod 5 insulin pump. Type of training:upgrade If upgrade, patient was previously on the following pump:t:slim Pump programming done today by: patient with educator supervision Insulin information: Patient did not have the account linked to [employer] and did not bring their login information with them, we reviewed how to do so once they return home and will plan to follow up with them via phone later in the week and confirm data is visible. Rapid-acting insulin loaded into pump today: Humalog See phone encounter dated 03/22/24 for pump settings approved by provider and programmed into pump today. Basal 0.16 Bolus ICR - 11 ISF - 75 Target 110 Duration - 4 Pre-pump training and pump safety information: Patient can demonstrate correct use of a carb ratio:Yes Patient Verbalizes rules regarding when to change infusion set due to hyperglycemia: Yes Patient verbalizes importance of carrying a pump emergency kit:Yes Patient verbalizes back-up plan for pump failure:Yes Handouts provided: None - we reviewed the Guide that comes with the pump controller Follow-up plan for glucose management given to patient: Plan to follow up with patient via phone Follow-up plan for education: Follow-up training needed:no follow-up training needed This is a non-billable encounter through [employer] but will be billed to the following pump company: [employer]. This visit note will be communicated to the healthcare provider via access to shared medical record. I spent 75 minutes with this patient today. Jael Cifuentes RN [facility] 04-02-2024 History of Present illness Narrative Type of visit: In person individual Patient started today on Omnipod 5 insulin pump. Type of training:upgrade If upgrade, patient was previously on the following pump:t:slim Pump programming done today by: patient with educator supervision Insulin information: Patient did not have the account linked to [employer] and did not bring their login information with them, we reviewed how to do so once they return home and will plan to follow up with them via phone later in the week and confirm data is visible. Rapid-acting insulin loaded into pump today: Brittney See phone encounter dated 03/22/24 for pump settings approved by provider and programmed into pump today. Basal 0.16 Bolus ICR - 11 ISF - 75 Target 110 Duration - 4 Pre-pump training and pump safety information: Patient can demonstrate correct use of a carb ratio:Yes Patient Verbalizes rules regarding when to change infusion set due to hyperglycemia: Yes Patient verbalizes importance of carrying a pump emergency kit:Yes Patient verbalizes back-up plan for pump failure:Yes Handouts provided: None - we reviewed the Guide that comes with the pump controller Follow-up plan for glucose management given to patient: Plan to follow up with patient via phone Follow-up plan for education: Follow-up training needed:no follow-up training needed This is a non-billable encounter through [employer] but will be billed to the following pump company: [employer]. This visit note will be communicated to the healthcare provider via access to shared medical record. I spent 75 minutes with this patient today. Jael Cifuentes RN documented in this encounter [facility] 03-27-2024 Evaluation + Plan note Associated Problem(s): Insomnia Chronic, uncontrolled Discussed with PharmD Will Rx Elavil and titrate q2 weeks - patient will send message via [email or web address] Counseled regarding when to take medication (I.e. does not work right away) Given dual effect of treating neuropathic pain, consider weaning off/lower dose of gabapentin in future after patient been on stable dose of TCA [facility] 03-27-2024 Miscellaneous Notes Associated Problem(s): Insomnia Chronic, uncontrolled Discussed with PharmD Will Rx Elavil and titrate q2 weeks - patient will send message via [email or web address] Counseled regarding when to take medication (I.e. does not work right away) Given dual effect of treating neuropathic pain, consider weaning off/lower dose of gabapentin in future after patient been on stable dose of TCA documented in this encounter [facility] 03-27-2024 History of Present illness Narrative Images from the original note were not included. [facility] [address] [facility] [address] Dept: [phone] Dept Loc: [phone] Patient was seen today via Telehealth by agreement and consent. I used the following Telehealth technology: Audio and video capabilities. Patient location: Patient Location: Home. This patient encounter is appropriate and reasonable under the circumstances: Behavioral Health . The patient has been advised of the potential risks and limitations of this mode of treatment (including but not limited to the absence of in-person examination) and has agreed to be treated in a remote fashion in spite of them. Any and all of the patient's/patient's family's questions on this issue have been answered and I have made no promises or guarantees to the patient. The patient has also been advised to contact this office for worsening conditions or problems, and seek emergency medical treatment and/or call 911 if the patient deems either necessary. The patient stated that they are currently in the [facility]. If the patient is a minor, permission has been obtained by the parent or guardian for the patient to receive medical care at this visit. Assessment/Plan 1. Psychophysiological insomnia Assessment & Plan: Chronic, uncontrolled Discussed with PharmD Will Rx Elavil and titrate q2 weeks - patient will send message via [email or web address] Counseled regarding when to take medication (I.e. does not work right away) Given dual effect of treating neuropathic pain, consider weaning off/lower dose of gabapentin in future after patient been on stable dose of TCA Orders: - amitriptyline (Elavil) 25 MG tablet; Take 1 tablet (25 mg) by mouth Nightly., Starting Mon03/27/2024, Until Mon04/26/2024, Normal Health Maintenance Due Topic Colorectal Cancer Screening MMR Vaccines (1 of 1 - Standard series) Diabetes: Retinopathy Screening Diabetes: Dental Exam Mammogram Follow Up: Follow up for as previously scheduled w/PCP or [facility] provider; she will check-in via [employer] q 2 weeks. Niecy Addison, 03/27/24 11:00 AM Subjective Jael Benson is a 58 y.o. who presents for a telehealth visit. Reason for visit/Primary concern: Chief Complaint Patient presents with Insomnia Insomnia Follow up of: insomnia/anxiety Medication(s) taking: effexor for anxiety Days in a week that patient misses dose of med(s): none Adverse effects of medication(s): No Falls asleep x 20 minutes then anxiety starts Foot will start shaking then just lie in bed Gets up eventually Walks around trying to get rid of anxiety Not necessarily legs waking up Can't get comfortable Used to think it had something to do with changing patch Happens about twice a week on average (1-3 nights) Nothing troubling her Denies inability to shut my brain off Has had ongoing for years Has not tried anything OTC except melatonin - last tried 4 years ago and unknown dose - may have doubled to tripled the dose Never tried any Rx sleep medication: trazodone, elavil, pamelor Has been on cymbalta for depression before Never been on Rozerem Allergies Allergen Reactions Oxycodone Anxiety and Other Severe insomnia Other reaction(s): Other (See Comments), Other (See Comments) Levofloxacin Other reaction(s): Other (See Comments), Other: See Comments insomnia insomnia Other reaction(s): anxious, Other (See Comments), Other: See Comments Diphenhydramine Other reaction(s): Agitation, Hyperactivity hyper Other reaction(s): Agitation, Other Iodinated Contrast Media Other reaction(s): Vomiting Metoclopramide Other Other reaction(s): Hyperactivity, Intolerance reglan hyper Other reaction(s): Intolerance, Other, Other (See Comments) Nitrofurantoin Other reaction(s): Intolerance macrobid Other reaction(s): Other (See Comments) Phenothiazines Other reaction(s): Hyperactivity, Intolerance compazine hyper Other reaction(s): Intolerance, Other Review of Systems Psychiatric/Behavioral: Positive for sleep disturbance. Negative for decreased concentration, dysphoric mood, self-injury and suicidal ideas. The patient is nervous/anxious and has insomnia. [] Problem list and/or medical history reviewed/updated as appropriate [] Medication list reviewed/updated [] Allergies reviewed/updated Last 3 PHQ-9 Scores 03/26/2024 1412 Patient Health Questionnaire-9 Score: 2 Last 3 JUVE-7 Scores 03/26/2024 1415 JUVE-7 Total Score: 4 PHQ-2/9 Objective (if obtainable) Physical Exam Constitutional: General: She is not in acute distress. Appearance: Normal appearance. HENT: Head: Normocephalic. Pulmonary: Effort: Pulmonary effort is normal. No respiratory distress. Neurological: General: No focal deficit present. Mental Status: She is alert. Mental status is at baseline. Psychiatric: Mood and Affect: Mood normal. Behavior: Behavior normal. Thought Content: Thought content normal. Judgment: Judgment normal. documented in this encounter [facility] 03-27-2024 Instructions Niecy Addison DO - 03/27/2024 11:00 AM EDT BEATING INSOMNIA For many people, insomnia is a learned problem. Repeated nights spent worrying or tossing and turning in bed teaches the body to associate the bed with arousal and alertness, when instead we want the body to associate the bed with relaxation and drowsiness. In order to break this problem we need to help the body relearn to associate the bed with sleepiness. The steps below will do this. Read them carefully, follow them closely, and call your doctor if you have any questions. You can sleep better! STEP 1: DO NOT GO TO BED UNTIL YOU ARE VERY DROWSY (NO MATTER WHAT TIME IT IS!) Do not go to bed according to the clock. Instead, go to bed only when you are so drowsy you can barely stay awake. You might end up getting in bed long after your usual bed time if you do this, but that's ok. With time, you will get drowsy earlier in the night. STEP 2: IF YOU ARE AWAKE IN BED MORE THAN 20 MINUTES, GET OUT OF BED AND DO SOMETHING RELAXING This is very important! Remember that by lying in bed a long time awake, you are teaching your body to associate the bed with wakefulness. We want the opposite to happen, so you must leave the bed if you're not sleeping. When you get out of bed, avoid doing activities that excite you or make you tense. Instead, do something relaxing. STEP 3: WHEN YOU BEGIN TO FEEL DROWSY AGAIN, TRY GOING TO BED AGAIN If you again lie awake in bed for 20 minutes, it's important to go back to Step 2 by getting out of bed. Repeat Steps 2 and 3 until you eventually fall asleep. When you start this program, you might need to repeat these steps several times until you fall asleep, but this will improve after 1 week for most people. STEP 4: GET OUT OF BED AT THE SAME TIME EACH DAY No matter what time you fall asleep during the night, make sure to get up at about the same time each day (even weekends). Do not stay in bed more than 1 hour later than your usual waking time. STEP 5: DO NOT NAP DURING THE DAY If you absolutely must nap, limit the nap to 20 minutes. You might want to set a timer to make sure you don't sleep longer. MOST IMPORTANTLY: HAVE PATIENCE! Chronic insomnia doesn't develop overnight and it doesn't go away overnight. In fact, most people who follow these steps find their sleep gets worse before it gets better. However, in 1-2 weeks, you should notice significant improvement in your sleep if you follow these steps closely. SWEET DREAMS! From Shanthi Childs. and Sanjay Overton., Behavioral Consultation and Primary Care: A Guide to Integrating Services, [place], 2007. documented in this encounter [facility] 03-25-2024 Telephone encounter Note Patient scheduled for 04/02/[address] [facility] 03-25-2024 Miscellaneous Notes Patient scheduled for 04/02/24 1st attempt: Tried calling patient, but number is blocked and call could not go through. I sent patient a [email or web address] message to call and schedule an appointment. I will postpone this and follow up on it. Karl Magana, This patient has received the Omnipod 5 pump and needs training. Patient is upgrading from [employer]. You are being assigned the training. Please contact patient to schedule training or instruct your PSS team on how to schedule. Please advise patient to bring the following to the pump start once scheduled: 1. Omnipod pump controller/PDM 2. Vial of rapid-acting insulin with at least 200 units in it 3. At least 2 of each of the following items: Omnipod pods Please coordinate the followin. Orders for pump rate settings Patient has been added to the pump training spreadsheet, so update as needed. Please respond BIMAL if you would prefer this training gets reassigned. Thanks! documented in this encounter [facility] 03-22-2024 Telephone encounter Note 1st attempt: Tried calling patient, but number is blocked and call could not go through. I sent patient a [email or web address] message to call and schedule an appointment. I will postpone this and follow up on it. [facility] 03-22-2024 Telephone encounter Note Karl Magana, This patient has received the Omnipod 5 pump and needs training. Patient is upgrading from [employer]. You are being assigned the training. Please contact patient to schedule training or instruct your PSS team on how to schedule. Please advise patient to bring the following to the pump start once scheduled: 1. Omnipod pump controller/PDM 2. Vial of rapid-acting insulin with at least 200 units in it 3. At least 2 of each of the following items: Omnipod pods Please coordinate the followin. Orders for pump rate settings Patient has been added to the pump training spreadsheet, so update as needed. Please respond BIMAL if you would prefer this training gets reassigned. Thanks! 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 Reminded patient to get UDS ordered from 11/2023 documented in this encounter [facility] 03-21-2024 Evaluation + Plan note Associated Problem(s): Chronic painful diabetic neuropathy (CMS/HCC) (HCC) Controlled After addressing medication(s) compliance, adverse effects, and efficacy of treatment(s), medications for this controlled chronic condition will be continued. Reminded patient to get UDS ordered from 11/2023 [facility] 03-21-2024 History of Present illness Narrative Images from the original note were not included. Prechart note: (the following data was documented before the visit began) Rooming: Possible agenda: Provider notes: did not get UDS done/FIT test done ordered 11/2023 Multidisciplinary team needs: Health Maintenance to be addressed today: how often endo appts? Eye exam, dentist Health Maintenance Due Topic Date Due Colorectal Cancer Screening Never done MMR Vaccines (1 of 1 - Standard series) Never done Diabetes: Retinopathy Screening Never done Diabetes: Dental Exam Never done Mammogram Never done Depression Monitoring 03/21/2024 (end precharting)- [facility] [address] [facility] [address] Dept: [phone] Dept Loc: [phone] Patient was seen today via Telehealth by agreement and consent. I used the following Telehealth technology: Audio and video capabilities. Patient location: Patient Location: Home. This patient encounter is appropriate and reasonable under the circumstances: transportation issues . The patient has been advised of the potential risks and limitations of this mode of treatment (including but not limited to the absence of in-person examination) and has agreed to be treated in a remote fashion in spite of them. Any and all of the patient's/patient's family's questions on this issue have been answered and I have made no promises or guarantees to the patient. The patient has also been advised to contact this office for worsening conditions or problems, and seek emergency medical treatment and/or call 911 if the patient deems either necessary. The patient stated that they are currently in the [facility]. If the patient is a minor, permission has been obtained by the parent or guardian for the patient to receive medical care at this visit. Assessment/Plan 1. Chronic painful diabetic neuropathy (CMS/HCC) ([facility]) Assessment & Plan: Controlled After addressing medication(s) compliance, adverse effects, and efficacy of treatment(s), medications for this controlled chronic condition will be continued. Reminded patient to get UDS ordered from 11/2023 Orders: - fentaNYL (Duragesic) 62.5 MCG/HR; Place 1 patch on the skin Every 72 hours. Do not start before April 20, 2024., Starting 04/20/2024, Until 05/20/2024, Normal - fentaNYL (Duragesic) 62.5 MCG/HR; Place 1 patch on the skin Every 72 hours. Do not start before May 20, 2024., Starting 05/20/2024, Until 06/19/2024, Normal 2. 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 Encounter for screening mammogram for malignant neoplasm of breast Comments: Reminded patient to reschedule mammogram 4. Colon cancer screening Comments: Reminded patient to do Cologard Health Maintenance Due Topic Colorectal Cancer Screening MMR Vaccines (1 of 1 - Standard series) Diabetes: Retinopathy Screening Diabetes: Dental Exam Mammogram Depression Monitoring Follow Up: Follow up in about 3 months (around 06/21/2024) for LTOT, for Telehealth, with PCP or Pod provider. Niecy Addison, DO 03/21/24 11:02 AM Subjective Jael Benson is a 58 y.o. who presents for a telehealth visit. Reason for visit/Primary concern: Chief Complaint Patient presents with Chronic Pain HPI Now has 4 dogs to take care of since has dad's 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 [facility] [place] PAIN MANAGEMENT DRUG PANEL Date Value Ref Range Status 03/16/2022 NEGATIVE NA Final No results found for: TRAMADOLUR Last pain management panel concordant: Yes Rationale for use of opioid: To treat moderate or severe pain and functional impairment caused by diagnosis of diabetic neuropathy Patient did not receive adequate pain control/function with 2 non-opioid treatments including: adjuvant anticonvulsants and adjuvantantidepressants at maximum tolerated doses Specialist referral and recommendation: pain management, endocrine Opioid prescribed to treat non-cancer/non-malignant pain outside of active cancer treatment, palliative care, end of life/hospice care, sickle cell, severe burn, traumatic crushing of tissue, amputation, major orthopedic surgery. This short-acting opioid is prescribed after confirmation of the following; This patient is not opioid-naive.This patient has received opioid medications for at least 7 days prior to this prescription. An opioid agreement is recorded in the electronic record and confirms discussion of the benefits and risks of opioid therapy. RED FLAGS: Forging or altering a prescription: No Using another person's pain or scheduled medication: No Illegal drugs, including THC, in PNM: No Controlled drugs not prescribed by this office in PNM: No Intoxication: No Overdose: No Legal problems related to controlled substances: No Behavior that threatens staff or physician: No Accident motor vehicle crash: No PAIN ROS How is the pain medication helping your function: much improved: ambulation, bathing and hygiene, feeding, grooming, toileting, and dressing Are you having any sleepiness: No Are you having any constipation: No Are you having any mental slowing: No Are you having any sexual dysfunction: No PEG 1 (painon average in the past week with medications): 3 PEG 2 (pain interference with enjoyment of life): 1 PEG 3 (pain interference with normal activity): 1 SELF MANAGEMENT: The patient is interested in this area of self management: Meaningful life activities (familly, household responsibilities, work) Allergies Allergen Reactions Oxycodone Anxiety and Other Severe insomnia Other reaction(s): Other (See Comments), Other (See Comments) Levofloxacin Other reaction(s): Other (See Comments), Other: See Comments insomnia insomnia Other reaction(s): anxious, Other (See Comments), Other: See Comments Diphenhydramine Other reaction(s): Agitation, Hyperactivity hyper Other reaction(s): Agitation, Other Iodinated Contrast Media Other reaction(s): Vomiting Metoclopramide Other Other reaction(s): Hyperactivity, Intolerance reglan hyper Other reaction(s): Intolerance, Other, Other (See Comments) Nitrofurantoin Other reaction(s): Intolerance macrobid Other reaction(s): Other (See Comments) Phenothiazines Other reaction(s): Hyperactivity, Intolerance compazine hyper Other reaction(s): Intolerance, Other Review of Systems [] Problem list and/or medical history reviewed/updated as appropriate [] Medication list reviewed/updated [] Allergies reviewed/updated Last 3 PHQ-9 Scores No data found in the last 10 encounters. Last 3 JUVE-7 Scores No data found in the last 10 encounters. PHQ-2/9 Objective (if obtainable) Physical Exam Constitutional: General: She is not in acute distress. Appearance: Normal appearance. HENT: Head: Normocephalic. Pulmonary: Effort: Pulmonary effort is normal. No respiratory distress. Neurological: General: No focal deficit present. Mental Status: She is alert. Mental status is at baseline. Psychiatric: Mood and Affect: Mood normal. Behavior: Behavior normal. Thought Content: Thought content normal. Judgment: Judgment normal. documented in this encounter [facility] 03-21-2024 Instructions Niecy Addison DO - 03/21/2024 10:50 AM EDT Lidocaine gel or patch Lidoderm documented in this encounter [facility] 03-12-2024 Telephone encounter Note [facility] calling to request verbal RX for the intro kit for Omni pod 5 and the pods. They state have sent several faxes but they are not transmitting to us. Please call [facility] at [phone] [facility] 03-12-2024 Miscellaneous Notes [facility] calling to request verbal RX for the intro kit for Omni pod 5 and the pods. They state have sent several faxes but they are not transmitting to us. Please call [facility] at [phone] documented in this encounter [facility] 01-08-2024 Telephone encounter Note Chart reviewed for compliance with [facility] refill guidelines. Screening criteria met. Last appointment 09/21/2023. Next appointment 03/21/2024. Last labs CMP Date: Lab Results Component Value Date ALT 25 09/21/2023 AST 50 (H) 09/21/2023 ALKPHOS 57 09/21/2023 BILITOT 0.5 09/21/2023 Lab Results Component Value Date GLUCOSE 195 (H) 09/21/2023 CALCIUM 9.7 09/21/2023 NA 134 (L) 09/21/2023 K 4.0 09/21/2023 CO2 28 09/21/2023 CL 97 (L) 09/21/2023 BUN 31 (H) 09/21/2023 CREATININE 1.21 (H) 09/21/2023 , Lipid Date: Lab Results Component Value Date CHOL 145 09/21/2023 CHOL 170 06/11/2020 Lab Results Component Value Date HDL 64 (H) 09/21/2023 HDL 58 06/11/2020 Lab Results Component Value Date LDLCALC 65 09/21/2023 Lab Results Component Value Date TRIG 79 09/21/2023 TRIG 105 06/11/2020 No results found for: CHOLHDL , A1c value Lab Results Component Value Date HGBA1C 6.8 (H) 09/21/2023 , and TSH value Lab Results Component Value Date TSH 2.183 09/21/2023 . Please review and send prescription as appropriate. T [facility] 01-08-2024 Miscellaneous Notes Chart reviewed for compliance with [facility] refill guidelines. Screening criteria met. Last appointment 09/21/2023. Next appointment 03/21/2024. Last labs CMP Date: Lab Results Component Value Date ALT 25 09/21/2023 AST 50 (H) 09/21/2023 ALKPHOS 57 09/21/2023 BILITOT 0.5 09/21/2023 Lab Results Component Value Date GLUCOSE 195 (H) 09/21/2023 CALCIUM 9.7 09/21/2023 NA 134 (L) 09/21/2023 K 4.0 09/21/2023 CO2 28 09/21/2023 CL 97 (L) 09/21/2023 BUN 31 (H) 09/21/2023 CREATININE 1.21 (H) 09/21/2023 , Lipid Date: Lab Results Component Value Date CHOL 145 09/21/2023 CHOL 170 06/11/2020 Lab Results Component Value Date HDL 64 (H) 09/21/2023 HDL 58 06/11/2020 Lab Results Component Value Date LDLCALC 65 09/21/2023 Lab Results Component Value Date TRIG 79 09/21/2023 TRIG 105 06/11/2020 No results found for: CHOLHDL , A1c value Lab Results Component Value Date HGBA1C 6.8 (H) 09/21/2023 , and TSH value Lab Results Component Value Date TSH 2.183 09/21/2023 . Please review and send prescription as appropriate. documented in this encounter [facility] 12-21-2023 Evaluation + Plan note Associated Problem(s): Menopausal syndrome on hormone replacement therapy Failed Veozah Back on HRT Discussed to cut medication in half to decrease to lowest effective dose - she will either cut her Estrace and Provera in half and take every day or take a full pill every other day [facility] 12-21-2023 Miscellaneous Notes Associated Problem(s): Menopausal syndrome on hormone replacement therapy Failed Veozah Back on HRT Discussed to cut medication in half to decrease to lowest effective dose - she will either cut her Estrace and Provera in half and take every day or take a full pill every other day Associated Problem(s): Chronic painful diabetic neuropathy (CMS/HCC) (HCC) Controlled After addressing medication(s) compliance, adverse effects, and efficacy of treatment(s), medications for this controlled chronic condition will be continued. UDS in the next few weeks documented in this encounter [facility] 12-21-2023 Miscellaneous Notes Associated Problem(s): Menopausal syndrome on hormone replacement therapy Failed Veozah Back on HRT Discussed to cut medication in half to decrease to lowest effective dose - she will either cut her Estrace and Provera in half and take every day or take a full pill every other day Associated Problem(s): Chronic painful diabetic neuropathy (CMS/HCC) (HCC) Controlled After addressing medication(s) compliance, adverse effects, and efficacy of treatment(s), medications for this controlled chronic condition will be continued. UDS in the next few weeks Addended by: RACHEL JAIMES on: 06/11/2024 03:29 PM Modules accepted: Orders documented in this encounter [facility] 12-21-2023 Evaluation + Plan note Associated Problem(s): Chronic painful diabetic neuropathy (CMS/HCC) (HCC) Controlled After addressing medication(s) compliance, adverse effects, and efficacy of treatment(s), medications for this controlled chronic condition will be continued. UDS in the next few weeks [facility] 12-21-2023 History of Present illness Narrative Images from the original note were not included. [facility] [address] [facility] [address] [facility] [address] Dept: [phone] Dept Loc: [phone] Patient was seen today via Telehealth by agreement and consent. I used the following Telehealth technology: Audio and video capabilities. Patient location: Patient Location: Home. This patient encounter is appropriate and reasonable under the circumstances: Behavioral Health . The patient has been advised of the potential risks and limitations of this mode of treatment (including but not limited to the absence of in-person examination) and has agreed to be treated in a remote fashion in spite of them. Any and all of the patient's/patient's family's questions on this issue have been answered and I have made no promises or guarantees to the patient. The patient has also been advised to contact this office for worsening conditions or problems, and seek emergency medical treatment and/or call 911 if the patient deems either necessary. The patient stated that they are currently in the state [facility]. If the patient is a minor, permission has been obtained by the parent or guardian for the patient to receive medical care at this visit. Assessment/Plan 1. Chronic painful diabetic neuropathy (CMS/HCC) (HCC) Assessment & Plan: Controlled After addressing medication(s) compliance, adverse effects, and efficacy of treatment(s), medications for this controlled chronic condition will be continued. UDS in the next few weeks Orders: - PAIN MANAGEMENT PANEL - Fentanyl & Metab, Ur Qnt - fentaNYL (Duragesic) 62.5 MCG/HR; Place 1 patch on the skin Every 72 hours., Starting [place]raa 12/21/2023, Until 01/20/2024, Normal - fentaNYL (Duragesic) 62.5 MCG/HR; Place 1 patch on the skin Every 72 hours. Do not start before January 20, 2024., Starting 01/20/2024, Until 02/19/2024, Normal - fentaNYL (Duragesic) 62.5 MCG/HR; Place 1 patch on the skin Every 72 hours. Do not start before February 19, 2024., Starting 02/19/2024, Until 03/20/2024, Normal 2. Menopausal syndrome on hormone replacement therapy Assessment & Plan: Failed Leonel Back on HRT Discussed to cut medication in half to decrease to lowest effective dose - she will either cut her Estrace and Provera in half and take every day or take a full pill every other day 3. Encounter for monitoring opioid maintenance therapy - PAIN MANAGEMENT PANEL - Fentanyl & Metab, Ur Qnt 4. Encounter for screening mammogram for malignant neoplasm of breast - Bilateral screening mammogram with tomosynthesis 5. Colon cancer screening - Cologuard colon cancer screening - Fecal Immunochemical Test Ordered both FIT and Cologuard - patient will do Cologuard if her diarrhea improves but if does not then can do FIT test Health Maintenance Due Topic Colorectal Cancer Screening MMR Vaccines (1 of 1 - Standard series) Diabetes: Foot Exam Diabetes: Retinopathy Screening Diabetes: Dental Exam Mammogram Follow Up: Follow up in about 3 months (around 03/21/2024) for LTOT, for Telehealth, with PCP or Pod provider. Niecy Addison DO 12/21/23 11:33 AM Subjective Jael Benson is a 58 y.o. who presents for a telehealth visit. Reason for visit/Primary concern: Chief Complaint Patient presents with Chronic Pain HPI Has had some diarrhea mostly - using 4 stool softeners Always had problems with constipation -used to be on 10 stool softeners Has had colonoscopy - afraid of hypoglycemia with DMI Controlled Substances Monitoring: No data to display OARRs Reviewed. [employer] PAIN MANAGEMENT DRUG PANEL Date Value Ref Range Status 03/16/2022 NEGATIVE NA Final No results found for: TRAMADOLUR Last pain management panel concordant: Yes Rationale for use of opioid: To treat moderate or severe pain and functional impairment caused by diagnosis of diabetic neuropathy Patient did not receive adequate pain control/function with 2 non-opioid treatments including: adjuvant anticonvulsants and adjuvantantidepressants at maximum tolerated doses Specialist referral and recommendation: endo Opioid prescribed to treat non-cancer/non-malignant pain outside of active cancer treatment, palliative care, end of life/hospice care, sickle cell, severe burn, traumatic crushing of tissue, amputation, major orthopedic surgery. This short-acting opioid is prescribed after confirmation of the following; This patient is not opioid-naive.This patient has received opioid medications for at least 7 days prior to this prescription. An opioid agreement is recorded in the electronic record and confirms discussion of the benefits and risks of opioid therapy. RED FLAGS: Forging or altering a prescription: No Using another person's pain or scheduled medication: No Illegal drugs, including THC, in PNM: No Controlled drugs not prescribed by this office in PNM: No Intoxication: No Overdose: No Legal problems related to controlled substances: No Behavior that threatens staff or physician: No Accident motor vehicle crash: No PAIN ROS How is the pain medication helping your function: improved: ambulation, bathing and hygiene, feeding, continence, grooming, toileting, and dressing Are you having any sleepiness: No Are you having any constipation: No Are you having any mental slowing: No Are you having any sexual dysfunction: No PEG 1 (painon average in the past week with medications): 4 PEG 2 (pain interference with enjoyment of life): 1 PEG 3 (pain interference with normal activity): 1 SELF MANAGEMENT: The patient is interested in this area of self management: Meaningful life activities (familly, household responsibilities, work) Leonel stopped working for hot flashes Wasn't on them for more than 6 months Hormones working well and has been on for years (Estrace, Provera) Believes can go 2-3 days before sweating/flushes returns Mother has history of very early stage breast cancer Allergies Allergen Reactions Oxycodone Anxiety and Other Severe insomnia Other reaction(s): Other (See Comments), Other (See Comments) Levofloxacin Other reaction(s): Other (See Comments), Other: See Comments insomnia insomnia Other reaction(s): anxious, Other (See Comments), Other: See Comments Diphenhydramine Other reaction(s): Agitation, Hyperactivity hyper Other reaction(s): Agitation, Other Iodinated Contrast Media Other reaction(s): Vomiting Metoclopramide Other Other reaction(s): Hyperactivity, Intolerance reglan hyper Other reaction(s): Intolerance, Other, Other (See Comments) Nitrofurantoin Other reaction(s): Intolerance macrobid Other reaction(s): Other (See Comments) Phenothiazines Other reaction(s): Hyperactivity, Intolerance compazine hyper Other reaction(s): Intolerance, Other Review of Systems Constitutional: Negative for fatigue and fever. Gastrointestinal: Positive for constipation and diarrhea. Negative for abdominal pain and blood in stool. Neurological: Negative for dizziness. Psychiatric/Behavioral: Negative for confusion. [] Problem list and/or medical history reviewed/updated as appropriate [] Medication list reviewed/updated [] Allergies reviewed/updated Last 3 PHQ-9 Scores No data found in the last 10 encounters. Last 3 JUVE-7 Scores No data found in the last 10 encounters. PHQ-2/9 Objective (if obtainable) Physical Exam Constitutional: General: She is not in acute distress. Appearance: Normal appearance. HENT: Head: Normocephalic. Eyes: Conjunctiva/sclera: Conjunctivae normal. Pulmonary: Effort: Pulmonary effort is normal. No respiratory distress. Neurological: General: No focal deficit present. Mental Status: She is alert. Mental status is at baseline. Psychiatric: Mood and Affect: Mood normal. Behavior: Behavior normal. Thought Content: Thought content normal. Judgment: Judgment normal. documented in this encounter [facility] 12-21-2023 History of Present illness Narrative Images from the original note were not included. [facility] [address] [facility] [address] Dept: [phone] Dept Loc: [phone] Patient was seen today via Telehealth by agreement and consent. I used the following Telehealth technology: Audio and video capabilities. Patient location: Patient Location: Home. This patient encounter is appropriate and reasonable under the circumstances: Behavioral Health . The patient has been advised of the potential risks and limitations of this mode of treatment (including but not limited to the absence of in-person examination) and has agreed to be treated in a remote fashion in spite of them. Any and all of the patient's/patient's family's questions on this issue have been answered and I have made no promises or guarantees to the patient. The patient has also been advised to contact this office for worsening conditions or problems, and seek emergency medical treatment and/or call 911 if the patient deems either necessary. The patient stated that they are currently in the [facility]. If the patient is a minor, permission has been obtained by the parent or guardian for the patient to receive medical care at this visit. Assessment/Plan 1. Chronic painful diabetic neuropathy (CMS/HCC) ([facility]) Assessment & Plan: Controlled After addressing medication(s) compliance, adverse effects, and efficacy of treatment(s), medications for this controlled chronic condition will be continued. UDS in the next few weeks Orders: - PAIN MANAGEMENT PANEL - Fentanyl & Metab, Ur Qnt - fentaNYL (Duragesic) 62.5 MCG/HR; Place 1 patch on the skin Every 72 hours., Starting Zahraa 12/21/2023, Until 01/20/2024, Normal - fentaNYL (Duragesic) 62.5 MCG/HR; Place 1 patch on the skin Every 72 hours. Do not start before January 20, 2024., Starting 01/20/2024, Until 02/19/2024, Normal - fentaNYL (Duragesic) 62.5 MCG/HR; Place 1 patch on the skin Every 72 hours. Do not start before February 19, 2024., Starting 02/19/2024, Until 03/20/2024, Normal 2. Menopausal syndrome on hormone replacement therapy Assessment & Plan: Failed Veozah Back on HRT Discussed to cut medication in half to decrease to lowest effective dose - she will either cut her Estrace and Provera in half and take every day or take a full pill every other day 3. Encounter for monitoring opioid maintenance therapy - PAIN MANAGEMENT PANEL - Fentanyl & Metab, Ur Qnt 4. Encounter for screening mammogram for malignant neoplasm of breast - Bilateral screening mammogram with tomosynthesis 5. Colon cancer screening - Cologuard colon cancer screening - Fecal Immunochemical Test Ordered both FIT and Cologuard - patient will do Cologuard if her diarrhea improves but if does not then can do FIT test Health Maintenance Due Topic Colorectal Cancer Screening MMR Vaccines (1 of 1 - Standard series) Diabetes: Foot Exam Diabetes: Retinopathy Screening Diabetes: Dental Exam Mammogram Follow Up: Follow up in about 3 months (around 03/21/2024) for LTOT, for Telehealth, with PCP or Pod provider. Niecy Addison DO 12/21/23 11:33 AM Subjective Jael Benson is a 58 y.o. who presents for a telehealth visit. Reason for visit/Primary concern: Chief Complaint Patient presents with Chronic Pain HPI Has had some diarrhea mostly - using 4 stool softeners Always had problems with constipation -used to be on 10 stool softeners Has had colonoscopy - afraid of hypoglycemia with DMI Controlled Substances Monitoring: No data to display OARRs Reviewed. [facility] PAIN MANAGEMENT DRUG PANEL Date Value Ref Range Status 03/16/2022 NEGATIVE NA Final No results found for: TRAMADOLUR Last pain management panel concordant: Yes Rationale for use of opioid: To treat moderate or severe pain and functional impairment caused by diagnosis of diabetic neuropathy Patient did not receive adequate pain control/function with 2 non-opioid treatments including: adjuvant anticonvulsants and adjuvantantidepressants at maximum tolerated doses Specialist referral and recommendation: endo Opioid prescribed to treat non-cancer/non-malignant pain outside of active cancer treatment, palliative care, end of life/hospice care, sickle cell, severe burn, traumatic crushing of tissue, amputation, major orthopedic surgery. This short-acting opioid is prescribed after confirmation of the following; This patient is not opioid-naive.This patient has received opioid medications for at least 7 days prior to this prescription. An opioid agreement is recorded in the electronic record and confirms discussion of the benefits and risks of opioid therapy. RED FLAGS: Forging or altering a prescription: No Using another person's pain or scheduled medication: No Illegal drugs, including THC, in PNM: No Controlled drugs not prescribed by this office in PNM: No Intoxication: No Overdose: No Legal problems related to controlled substances: No Behavior that threatens staff or physician: No Accident motor vehicle crash: No PAIN ROS How is the pain medication helping your function: improved: ambulation, bathing and hygiene, feeding, continence, grooming, toileting, and dressing Are you having any sleepiness: No Are you having any constipation: No Are you having any mental slowing: No Are you having any sexual dysfunction: No PEG 1 (painon average in the past week with medications): 4 PEG 2 (pain interference with enjoyment of life): 1 PEG 3 (pain interference with normal activity): 1 SELF MANAGEMENT: The patient is interested in this area of self management: Meaningful life activities (familly, household responsibilities, work) Leonel stopped working for hot flashes Wasn't on them for more than 6 months Hormones working well and has been on for years (Estrace, Provera) Believes can go 2-3 days before sweating/flushes returns Mother has history of very early stage breast cancer Allergies Allergen Reactions Oxycodone Anxiety and Other Severe insomnia Other reaction(s): Other (See Comments), Other (See Comments) Levofloxacin Other reaction(s): Other (See Comments), Other: See Comments insomnia insomnia Other reaction(s): anxious, Other (See Comments), Other: See Comments Diphenhydramine Other reaction(s): Agitation, Hyperactivity hyper Other reaction(s): Agitation, Other Iodinated Contrast Media Other reaction(s): Vomiting Metoclopramide Other Other reaction(s): Hyperactivity, Intolerance reglan hyper Other reaction(s): Intolerance, Other, Other (See Comments) Nitrofurantoin Other reaction(s): Intolerance macrobid Other reaction(s): Other (See Comments) Phenothiazines Other reaction(s): Hyperactivity, Intolerance compazine hyper Other reaction(s): Intolerance, Other Review of Systems Constitutional: Negative for fatigue and fever. Gastrointestinal: Positive for constipation and diarrhea. Negative for abdominal pain and blood in stool. Neurological: Negative for dizziness. Psychiatric/Behavioral: Negative for confusion. [] Problem list and/or medical history reviewed/updated as appropriate [] Medication list reviewed/updated [] Allergies reviewed/updated Last 3 PHQ-9 Scores No data found in the last 10 encounters. Last 3 JUVE-7 Scores No data found in the last 10 encounters. PHQ-2/9 Objective (if obtainable) Physical Exam Constitutional: General: She is not in acute distress. Appearance: Normal appearance. HENT: Head: Normocephalic. Eyes: Conjunctiva/sclera: Conjunctivae normal. Pulmonary: Effort: Pulmonary effort is normal. No respiratory distress. Neurological: General: No focal deficit present. Mental Status: She is alert. Mental status is at baseline. Psychiatric: Mood and Affect: Mood normal. Behavior: Behavior normal. Thought Content: Thought content normal. Judgment: Judgment normal. documented in this encounter [facility] 12-21-2023 Instructions Niecy Addison DO - 12/21/2023 11:10 AM EDT Please call [phone] to schedule an appointment for your mammogram. documented in this encounter [facility] 12-21-2023 Instructions Niecy Addison DO - 12/21/2023 11:10 AM EDT Please call [phone] to schedule an appointment for your mammogram. documented in this encounter [facility] 12-21-2023 Note Addended by: RACHEL LICEA on: 06/11/2024 03:29 PM Modules accepted: Orders [facility] 12-08-2023 Miscellaneous Notes Addended by: FERN JACKSON on: 12/08/2023 01:55 PM Modules accepted: Orders documented in this encounter [facility] 12-08-2023 Note HNO ID: [id number] Author: LISA SHELBY MD Service: ? Author Type: Physician Type: Progress Notes Filed: 12/25/2023 16:47 Note Text: [facility] INITIAL DIABETES ASSESSMENT Consultation requested by For an opinion regarding Diabetes. My final recommendations will be communicated back to the requesting physician by way of shared Medical record or letter to requesting physician via US mail. Referring provider: Dr. Addison Phone: N/A Fax: HISTORY OF PRESENT ILLNESS: Jael Benson is a 58 year old female with PMH of type 1 diabetes who presents today for evaluation and establishing care regarding diabetes. Patient reports her glucose control has been very good since she has been on tandom insulin pump for delivery. She has hypoglycemia unawareness and has dexcom, which alarms and she eats and BG improves. When goes for a walk, she turns the pump off. Has tried exercise mode but it drops sugar regardless. Date of Diagnosis: at age 13 Symptoms of Hyperglycemia : Polydipsia Symptoms of Hypoglycemia: Loss of early awareness -------- Current DM Regimen: Tandom t slim for the past 3 years Pump Settings: -- Pump Type: Tandom t slim -- Manual Boluses: Yes -- Changes the site: every 3 days. -- Av B -- Avg daily carbs: - -- Avg Basal: 3.79 -- Avg Bolus: 16.5 Basal rate: Time U/Hr 0.16 Carb ratio: 1:10 Sensitivity Factor: 1:75 Blood glucose target: 110 Active insulin time: 5 -------- Physical Activity: Regular Diet: Counts Carbs Frequency of skipping meals is If on prandial insulin, is prandial insulin is skipped when a meal is skipped: Frequency of skipping diabetes meds: SMBG Type of Monitor: Dexcom Frequency of Monitoring: Not applicable BG Values: Not applicable Range of glucose levels is between -to - mg/dl -------- Last Eye Exam: March Last Foot Exam: due for Previous Diabetes Education: not applicable. Computed FIB-4 Calculation unavailable. One or more values for this score either were not found within the given timeframe or did not fit some other criterion. 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) PAST SURGICAL HISTORY Procedure Laterality Date , CLASSIC, ANTE/POST CA 02/27/88, 06/03/91 x2 COLPOSCOPY CERVIX UPPER/ADJACENT VAGINA 1999 LEEP LAPAROSCOPY DIAGNOSTIC for fertility NEUROPLASTY AND/TRANSPOS MEDIAN NRV CARPAL TUNNE 04-26-13 Carpal tunnel decomp, left PAST SURGICAL HISTORY OF 2002 Left ureter obstruction/stent scope PAST SURGICAL HISTORY OF 06-26-2001 Rt ankle fx repair with plates/screws PAST SURGICAL HISTORY OF right CTR PAST SURGICAL HISTORY OF 2007 left eye enucleation d/t pain Current Outpatient Medications Medication Sig Dispense Refill aspirin, enteric coated (ASPIRIN, ENTERIC COATED) 81 mg EC tablet Take 1 tablet by mouth once daily. Blood-Glucose Meter,Continuous (DEXCOM G7 TRAP SETTER) misc 1 Each. ADULT MUTIVITAMIN W/ EXTRA D GUMMY Take by mouth. aspirin (ASPIR-81 ORAL) Take by mouth. atorvastatin (LIPITOR) 40 mg tablet Take 40 mg by mouth once daily. scopolamine (TRANSDERM-SCOP) patch 1.5 mg/72 hr (delivers 1 mg over 3 days) Apply 1 disc behind the ear at least 4 hours prior to exposure and every 3 days as needed. 1 Patch 0 ondansetron HCl (ZOFRAN ORAL) Take by mouth. venlafaxine ER (EFFEXOR XR) 150 mg 24 hr capsule TAKE 1 CAPSULE DAILY IN THE MORNING venlafaxine (EFFEXOR) 75 mg tablet TAKE 1 TABLET DAILY AT BEDTIME medroxyPROGESTERone (PROVERA, CYCRIN) 2.5 mg tablet Take 2.5 mg by mouth once daily. Estradiol (ESTRACE) 0.5 mg tablet Take 0.5 mg by mouth once daily. fentaNYL (DURAGESIC) 50 mcg/hr meclizine (ANTIVERT) 25 mg tab Take 25 mg by mouth twice daily as needed. insulin lispro (HUMALOG) 100 unit/mL injection Inject SQ as directed in insulin pump up to 100 units daily 9 Vial 3 insulin lispro (HUMALOG) 100 unit/mL injection Inject SQ as directed in insulin pump up to 100 units daily 9 Vial 3 Multivita (more content not included)... [facility] 12-08-2023 History of Present illness Narrative Images from the original note were not included. [facility] INITIAL DIABETES ASSESSMENT Consultation requested by For an opinion regarding Diabetes. My final recommendations will be communicated back to the requesting physician by way of shared Medical record or letter to requesting physician via US mail. No referring provider defined for this encounter. Phone: N/A Fax: HISTORY OF PRESENT ILLNESS: Jael Benson is a 58 year old female with PMH of type 1 diabetes who presents today for evaluation and establishing care regarding diabetes. Patient reports her glucose control has been very good since she has been on tandom insulin pump for delivery. She has hypoglycemia unawareness and has dexcom, which alarms and she eats and BG improves. When goes for a walk, she turns the pump off. Has tried exercise mode but it drops sugar regardless. Date of Diagnosis: at age 13 Symptoms of Hyperglycemia : Polydipsia Symptoms of Hypoglycemia: Loss of early awareness -------- Current DM Regimen: Tandom t slim for the past 3 years Pump Settings: -- Pump Type: Tandom t slim -- Manual Boluses: Yes -- Changes the site: every 3 days. -- Av B -- Avg daily carbs: - -- Avg Basal: 3.79 -- Avg Bolus: 16.5 Basal rate: Time U/Hr 0.16 Carb ratio: 1:10 Sensitivity Factor: 1:75 Blood glucose target: 110 Active insulin time: 5 -------- Physical Activity: Regular Diet: Counts Carbs Frequency of skipping meals is If on prandial insulin, is prandial insulin is skipped when a meal is skipped: Frequency of skipping diabetes meds: SMBG Type of Monitor: Dexcom Frequency of Monitoring: Not applicable BG Values: Not applicable Range of glucose levels is between -to - mg/dl -------- Last Eye Exam: March Last Foot Exam: due for Previous Diabetes Education: not applicable. Computed FIB-4 Calculation unavailable. One or more values for this score either were not found within the given timeframe or did not fit some other criterion. 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) PAST SURGICAL HISTORY Procedure Laterality Date , CLASSIC, ANTE/POST CA 02/27/88, 06/03/91 x2 COLPOSCOPY CERVIX UPPER/ADJACENT VAGINA 1999 LEEP LAPAROSCOPY DIAGNOSTIC for fertility NEUROPLASTY &/TRANSPOS MEDIAN NRV CARPAL TUNNE 04-26-13 Carpal tunnel decomp, left PAST SURGICAL HISTORY OF 2002 Left ureter obstruction/stent scope PAST SURGICAL HISTORY OF 06-26-2001 Rt ankle fx repair with plates/screws PAST SURGICAL HISTORY OF right CTR PAST SURGICAL HISTORY OF 2007 left eye enucleation d/t pain Current Outpatient Medications Medication Sig Dispense Refill aspirin, enteric coated (ASPIRIN, ENTERIC COATED) 81 mg EC tablet Take 1 tablet by mouth once daily. Blood-Glucose Meter,Continuous (DEXCOM G7 TRAP SETTER) misc 1 Each. ADULT MUTIVITAMIN W/ EXTRA D GUMMY Take by mouth. aspirin (ASPIR-81 ORAL) Take by mouth. atorvastatin (LIPITOR) 40 mg tablet Take 40 mg by mouth once daily. scopolamine (TRANSDERM-SCOP) patch 1.5 mg/72 hr (delivers 1 mg over 3 days) Apply 1 disc behind the ear at least 4 hours prior to exposure and every 3 days as needed. 1 Patch 0 ondansetron HCl (ZOFRAN ORAL) Take by mouth. venlafaxine ER (EFFEXOR XR) 150 mg 24 hr capsule TAKE 1 CAPSULE DAILY IN THE MORNING venlafaxine (EFFEXOR) 75 mg tablet TAKE 1 TABLET DAILY AT BEDTIME medroxyPROGESTERone (PROVERA, CYCRIN) 2.5 mg tablet Take 2.5 mg by mouth once daily. Estradiol (ESTRACE) 0.5 mg tablet Take 0.5 mg by mouth once daily. fentaNYL (DURAGESIC) 50 mcg/hr meclizine (ANTIVERT) 25 mg tab Take 25 mg by mouth twice daily as needed. insulin lispro (HUMALOG) 100 unit/mL injection Inject SQ as directed in insulin pump up to 100 units daily 9 Vial 3 insulin lispro (HUMALOG) 100 unit/mL injection Inject SQ as directed in insulin pump up to 100 units daily 9 Vial 3 Multivitamin capsule Take 1 capsule by mouth once daily. gabapentin (NEURONTIN) 800 mg tablet Take 1 tablet by mouth four times daily. 28 tablet 0 glucagon, human recombinant, (GLUCAGON EMERGENCY) 1 mg injection 1 mg as directed. INJECT FOR INSULIN SHOCK 1 Each 11 losartan (COZAAR) 50 mg ORAL tablet Take 1 tablet by mouth once daily. 90 tablet 3 Infusion Set for Insulin Pump (JUSTUS INFUSION SET) Misc ISet MMT 923 changes site every 3 days 30 Each 4 Insulin Pump Syringe (PARADIGM RESERVOIR) 1.8 mL Misc Misc MMT 326A changes site every 3 days 30 Each 4 Catheter 14-16 Fr- Misc Misc use as directed four times a day 120 Each 11 No current facility-administered medications for this visit. ALLERGIES Allergen Reactions Levofloxacin Other: See Comments insomnia Antihistamines Intolerance (benadryl) Make her hyper Metoclopramide Intolerance reglan Nitrofuran Analogues Intolerance macrobid Phenothiazines Intolerance compazine FAMILY HISTORY Problem Relation Age of Onset Heart Father colon polyps other (spinal stenosis [Other]) Father Heart Sister Diabetes Son Anesthesia Problems No Family History Social History Tobacco Use Smoking status: Former Packs/day: 1.00 Years: 8.00 Additional pack years: 0.00 Total pack years: 8.00 Types: Cigarettes Quit date: 08/28/1986 Years since quittin.3 Smokeless tobacco: Never Vaping Use Vaping Use: Never used Substance Use Topics Alcohol use: No Drug use: No REVIEW OF SYSTEMS: GENERAL:Negative for fever, chills NECK:Negative for significant neck swelling RESPIRATORY: Negative for cough, or shortness of breath CARDIOVASCULAR: Negative for chest pain GASTROINTESTINAL: No nausea, vomiting, or diarrhea GENITOURINARY: No history of dysuria, frequency or incontinence MUSCULOSKELETAL: Negative for joint pain or swelling NEUROLOGIC:Negative for focal numbness or weakness SKIN:Negative for rash PSYCHIATRIC: Negative for mood disorder and recent psychosocial stressors. The remainder of the ROS was negative. Physical Examination BP 146/64 Pulse 85 Ht 159 cm (5' 2.6) Wt 82.1 kg (181 lb) LMP (LMP Unknown) BMI 32.48 kg/m General: Awake, Alert, in no acute distress CVS: RRR RS: CTAB Abdomen: Soft, non tender Neuro: AAOx3 Skin: No obvious skin rash, warm to touch Feet:No deformities, ulcers, calluses PREVIOUS LAB RESULTS: Hemoglobin A1C Date Value 11/10/2022 6.9 % 05/03/2016 6.8 09/17/2013 7.3 % Albumin (g/dL) Date Value 09/17/2013 4.3 Cholesterol, Total (mg/dL) Date Value 09/17/2013 159 HDL Cholesterol (mg/dL) Date Value 09/17/2013 118 LDL Cholesterol (mg/dL) Date Value 09/17/2013 10 Triglyceride (mg/dL) Date Value 09/17/2013 154 ] Glucose (mg/dL) Date Value 11/10/2022 42 (L) BUN (mg/dL) Date Value 11/10/2022 21 Creatinine (mg/dL) Date Value 11/10/2022 1.27 (H) Sodium (mmol/L) Date Value 11/10/2022 141 Potassium (mmol/L) Date Value 11/10/2022 4.1 Chloride (mmol/L) Date Value 11/10/2022 101 CO2 (mmol/L) Date Value 11/10/2022 31 (H) Protein, Total (g/dL) Date Value 09/17/2013 8.0 Albumin (g/dL) Date Value 09/17/2013 4.3 Calcium, Total (mg/dL) Date Value 11/10/2022 10.6 (H) Alkaline Phosphatase (U/L) Date Value 09/17/2013 83 Bilirubin, Total (mg/dL) Date Value 09/17/2013 0.2 AST (U/L) Date Value 09/17/2013 20 ALT (U/L) Date Value 09/17/2013 12 WBC (k/uL) Date Value 11/10/2022 6.08 RBC (m/uL) Date Value 11/10/2022 3.82 (L) Hemoglobin (g/dL) Date Value 11/10/2022 11.4 (L) Hematocrit (%) Date Value 11/10/2022 34.8 (L) MCV (fL) Date Value 11/10/2022 91.1 MCH (pg) Date Value 11/10/2022 29.8 MCHC (g/dL) Date Value 11/10/2022 32.8 RDW-CV (%) Date Value 11/10/2022 12.0 Platelet Count (k/uL) Date Value 11/10/2022 250 MPV (fL) Date Value 11/10/2022 9.6 Albumin/Creat Ratio (mg/g) Date Value 02/25/2010 92 (H) Protein, Urine (no units) Date Value 11/10/2022 Trace 07/17/2007 NEG Creatinine, Ur Random (UCRR) (mg/dL) Date Value 02/25/2010 20.2 Component Ref Range & Units 2 mo ago HEMOGLOBIN A1C <5.7 % 6.8 High IMPRESSIONS AND RECOMMENDATIONS: Jael Benson is a 58 year old female who presents today for evaluation of diabetes. 1. T1 DM: With neuropathy and retinopathy - Target HbA1C is less than 7.0% per ADA guidelines. This patient is at this target on current regimen, without excessive hypoglycemia. We will continue the current regimen. -will continue same settings for now. BG control is at target at 93% of the time, and patient not having hypoglycemia episodes. -Will renew CGM prescription (Dexcom/FSL2/3) - The patient was reminded to check her blood glucose fasting in the morning and 3 times a day(before meals) and to record the data in a logbook/will. - She was advised to bring their logbook to each office visit. A healthy diet emphasizes limited consumption of red and processed meats, unhealthy fats (saturated and industrial trans-fats), sugar, sodium, and alcohol, and a greater intake of fruits, vegetables, legumes, nuts, and whole grains. I also encouraged 30min of physical activity 5 days a week. A reasonable initial regimen is 10 minutes of stretching and warm-up, followed by 20 minutes of gentle aerobic exercise such as walking, cycling, or rowing. The exercise should be performed regularly (at least three to five times per week) and preferably at the same time in relation to meals and insulin injections in patients treated with insulin. -Will encourage weight loss with a goal of 3-7% reduction in 3-6 months. 2. Hypertension/BP control: BP goal for patients with diabetes is < 130/80. This patient is not at target on current regimen. I will defer management of this to their primary care physician. Pt reports it was high because she was anxious for the visit. Will continue to monitor. 3. Lipids: Target LDL cholesterol in patients with diabetes is less than 70, less than 55 if patient has overt CVD. This patient is currently at target on statin therapy. 4. Nephropathy screening: Annual measurement of urine albumin excretion is recommended in patients with diabetes. This patient is not up to date on microalbumin screening and this was ordered today. Will consider ACR/ARB +- SGLT2/Finerenone 5. Ophthalmology: Annual dilated eye exams are recommended for patients with type 1 and type 2 diabetes. This patient is not up to date with their annual eye exam and has a history of retinopathy. 6. Podiatry: Foot exam as above. Will place consult to podiatry. This note was created using [employer] dictation software. You may find errors that were missed during proofreading. They are purely unintentional and if there are any concerns regarding this dictation, please do not hesitate to contact the dictating provider for clarification. Discussed with Attending Staff, Addendum to follow. Fern Flowers MD Clinical Fellow [facility] Attending Note: Chowdhury findings confirmed. Patient examined. Discussed with the fellow and the patient. Plan as outlined. Lisa Cantrell MD documented in this encounter [facility] 12-08-2023 Instructions Kori Sweeney - 12/08/2023 9:52 AM EDT Thank you for choosing the [facility] Department of Endocrinology, Diabetes and Metabolism. Did you know that you need to call 48 hours in advance of your scheduled visit, if you are unable to make your appointment? The [facility] thanks you for your commitment, because patients not showing to their appointment results in a lost opportunity for patients to receive [facility] health care at the [facility]. To Cancel an appointment, please choose one of the following: - Call the Appointment Call Center at [phone] - From [email or web address], Go to Appointments - Cancel Appts If cancelling, consider your need to reschedule to prevent further delays in your care. To Schedule an appointment, please choose one of the following: - Call the Appointment Call Center at [phone] - From [email or web address], Go to Appointments - Request an Appt documented in this encounter [facility] 10-25-2023 History of Present illness Narrative BEHAVIORAL HEALTH PROGRESS NOTE Jael Benson 10/25/23 PCP: Niecy Addison DO Session #: 1 Time in 2:00 pm Time out 2:56 pm Total Time: 56 minutes Patient was seen today via Telehealth by agreement and consent. I used the following Telehealth technology: Audio and video capabilities. Patient location: VV Patient Location: Home. This patient encounter is appropriate and reasonable under the circumstances: Pt does not drive. Visually impaired . The patient has been advised of the potential risks and limitations of this mode of treatment (including but not limited to the absence of in-person examination) and has agreed to be treated in a remote fashion in spite of them. Any and all of the patient's/patient's family's questions on this issue have been answered and I have made no promises or guarantees to the patient. The patient has also been advised to contact this office for worsening conditions or problems, and seek emergency medical treatment and/or call 911 if the patient deems either necessary. The patient stated that they are currently in the [facility]. If the patient is a minor, permission has been obtained by the parent or guardian for the patient to receive medical care at this visit. Subjective: Anxiety hasn't been too bad. Comes and goes. Mental Status Examination: Appearance: eye contact good, grooming well kept, and well developed, well nourished Behavior/Motor: Pleasant, Cooperative, and Interactive Speech: Appropriate, Clear, and Normal pace Mood: euthymic Affect: Euthymic, full-range and Congruent with mood and topic of conversation Hallucinations: Denies Thought processes: Goal-directed Thought content: No evidence of psychosis/delusions Insight: Good Judgement: Good Sleep: no new sleep issues Appetite: ok Homicide: no Suicide: No specific plan to harm self Suicide Assessment: not indicated No reports of passive or active of SI. Pt is engaged. Has solid professional and natural supports. Tx compliant and presents as both forward thinking and future oriented Assessment & Treatment Modality 1. Moderate episode of recurrent major depressive disorder (HCC) Goals Decrease the frequency of unwanted emotions so that daily functioning is improved Session Narrative/Observation (S/0), Include pt's symptoms/stressors, intervention and tx response/progress: Mood/affect typical presentation for this patientPt reported that she continues to have periodic struggles with anxiety. Indicated that there doesn't seem to be regular triggers for her sxs and that she has been able to talk herself through times when things escalate. She was open to discussing moving forward ways to manage self-esteem related elements that may be underlying times when her anxiety spikes. She acknowledged that she has a number of residual beliefs about herself that were shaped in her childhood that continue to present themselves in her actions and responses to stressors. Treatment PLAN & Referrals Treatment and Follow-up Plan: Continue current treatment as agreed and Specific strategies to try/implement include Continue to practice grounding and reframing documented in this encounter [facility] 10-18-2023 History of Present illness Narrative BEHAVIORAL HEALTH ASSESSMENT Jael Benson 10/18/23 PCP: Niecy Addison DO Pt Preferred Phone #: [phone] Jael is a 58 y.o. female who presents today for: behavioral health assessment. Time in 2:49 Time out 4:13 Total Time: 84 minutes Patient seen today via Telehealth by agreement and consent. I used the following Telehealth technology: Audio and video capabilities. Patient location: Patient Location: Home. This patient encounter is appropriate and reasonable under the circumstances: pt does not drive d/t visual impairment . The patient has been advised of the potential risks and limitations of this mode of treatment (including but not limited to the absence of in-person examination) and has agreed to be treated in a remote fashion in spite of them. Any and all of the patient's/patient's family's questions on this issue have been answered and I have made no promises or guarantees to the patient. The patient has also been advised to contact this office for worsening conditions or problems, and seek emergency medical treatment and/or call 911 if the patient deems either necessary. The patient stated that they are currently in the state of [place]. If the patient is a minor, permission has been obtained by the parent or guardian for the patient to receive medical care at this visit. If pt is under 18, verbal consent obtained by [facility] through pt's parent named Not applicable. In case of emergency, the following information was collected from the patient: Emergency contact name: Jael Benson Emergency contact number: [phone] Patient's current [address]: [address] [place] [address] Department for address: [place] Patient Consent : [facility] discussed role and services including limits to confidentiality, documentation in a single EMR with care team, time-limited services, and potential financial responsibility. Patient expressed understanding and is agreeable to same. yes Reason for referral to Behavioral Health: Pt reported a recent spike in anxiety which has impacted functioning. 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 (CMS/HCC) (HCC) Neurogenic bladder Coronary artery disease involving [place] coronary artery of [place] heart without angina pectoris Essential hypertension History of suicide attempt Type 1 diabetes mellitus with stage 3 chronic kidney disease (HCC) Chronic painful diabetic neuropathy (CMS/HCC) (HCC) Bilateral carpal tunnel syndrome Anxiety Retinal detachment Retinopathy due to secondary DM (HCC) Non-seasonal allergic rhinitis due to pollen Urinary retention Insomnia Encounter for monitoring opioid maintenance therapy Therapeutic opioid induced constipation Anophthalmia Pain in both hands Current Outpatient Medications Medication Sig Dispense Refill aspirin 81 MG chewable tablet Chew 1 tablet daily. atorvastatin (Lipitor) 40 MG tablet Take 1 tablet (40 mg) by mouth daily. 90 tablet 3 fentaNYL (Duragesic) 62.5 MCG/HR Place 1 patch on the skin Every 72 hours. 10 patch 0 [START ON 10/21/2023] fentaNYL (Duragesic) 62.5 MCG/HR Place 1 patch on the skin Every 72 hours. Do not start before October 21, 2023. 10 patch 0 [START ON 11/20/2023] fentaNYL (Duragesic) 62.5 MCG/HR Place 1 patch on the skin Every 72 hours. Do not start before November 20, 2023. 10 patch 0 Fezolinetant (Veozah) 45 MG tablet Take 45 mg by mouth daily. 90 tablet 1 gabapentin (Neurontin) 400 MG capsule Take 1 capsule (400 mg) by mouth 2 times daily. 180 capsule 1 HumaLOG 100 UNIT/ML solution injection 100 UNIT VIA CONTINUOUS SUBCUTANEOUS INFUSION CONTINUOUS loratadine-pseudoephedrine ER (Claritin-D 24 Hour) 10-240 MG 24 hr tablet Take 1 tablet by mouth daily. losartan (Cozaar) 50 MG tablet Take 1 tablet (50 mg) by mouth daily. 90 tablet 1 meclizine (Antivert) 25 MG tablet Take 1 tablet (25 mg) by mouth 3 times daily as needed for dizziness. 30 tablet 3 NovoLOG 100 UNIT/ML solution INJECT 100 UNIT CONTINUOUS SUBCUTANEOUS INFUSION .CONTINUOUS ondansetron (Zofran) 4 MG tablet Take 1 tablet (4 mg) by mouth every 8 hours as needed for nausea or vomiting. 30 tablet 3 venlafaxine (Effexor) 75 MG tablet Take 1 tablet (75 mg) by mouth Nightly. 90 tablet 3 venlafaxine XR (Effexor XR) 150 MG 24 hr capsule Take 1 capsule (150 mg) by mouth daily. 90 capsule 3 No current facility-administered medications for this visit. Allergies Allergen Reactions Oxycodone Anxiety and Other Severe insomnia Other reaction(s): Other (See Comments), Other (See Comments) Levofloxacin Other reaction(s): Other (See Comments), Other: See Comments insomnia insomnia Other reaction(s): anxious, Other (See Comments), Other: See Comments Diphenhydramine Other reaction(s): Agitation, Hyperactivity hyper Other reaction(s): Agitation, Other Iodinated Contrast Media Other reaction(s): Vomiting Metoclopramide Other Other reaction(s): Hyperactivity, Intolerance reglan hyper Other reaction(s): Intolerance, Other, Other (See Comments) Nitrofurantoin Other reaction(s): Intolerance macrobid Other reaction(s): Other (See Comments) Phenothiazines Other reaction(s): Hyperactivity, Intolerance compazine hyper Other reaction(s): Intolerance, Other Social Hx: : yes Same supportive partner for 37 years Children: yes 2 adult sons Sharan 35, Edward 32 Residential setting: Owns a home where she resides with her spouse and 3 pets Family Mental Health Hx: yes Mother Education: High School graduate, high school diploma/GED Employment:no Disability Substance Use: None Hx of Trauma: yes Pain: yes does not use non-prescribed or alternative therapies. Spiritual: Pt reported that her mother was over the top rastafari while she sees herself as a spiritual person. Other Pertinent History: Pt experienced medical trauma as a child. Pt developed kidney problems as a toddler and was eventually diagnosed with Type 1 Diabetes. Reported that her mother and father did not educate themselves so she did not have the kind of appropriate support she should have as a minor in managing her illness. Social Determinants of Health Tobacco Use: Medium Risk (09/21/2023) Patient History Smoking Tobacco Use: Former Smokeless Tobacco Use: Never Passive Exposure: Not on file Alcohol Use: Not on file Financial Resource Strain: Not on file Food Insecurity: No Food Insecurity (09/21/2023) Hunger Vital Sign Worried About Running Out of Food in the Last Year: Never true Ran Out of Food in the Last Year: Never true Transportation Needs: Not on file Physical Activity: Not on file Stress: Not on file Social Connections: Not on file Intimate Partner Violence: Not on file Depression: None or minimal depression (09/21/2023) PHQ-9 PHQ-9 Score: 2 Housing Stability: Not on file Utilities: Not on file Psychiatric history: Hosp: 3 different hospitalizations OutpatientTx: Yes Previous Dx: Major Depressive Disorder Anxiety Mental Status Examination: Appearance: grooming well kept and well developed, well nourished Behavior/Motor: Pleasant, Cooperative, Engaging, and Interactive Speech: Appropriate, Clear, and Normal pace Mood: euthymic Affect: Euthymic, full-range Hallucinations: Absent Thought processes: Goal-directed Thought content: No evidence of psychosis/delusions Insight: Good Judgement: Good Sleep: no new sleep issues Appetite: ok Homicide: no Suicide: No specific plan to harm self Suicide Assessment: not indicated Pt denies any current or recent thoughts of suicide. She noted an attempt at age 17 and two other hospitalizations outside of that attached to the episode at 17. She acknowledges reasons for living including her erick and erick. Pt reports that she has significant natural and solid professional supports. She presented as forward thinking and made future oriented statements. Assessment & Treatment Modality 1. Moderate episode of recurrent major depressive disorder (HCC) with anxious distress Additional diagnosis: Pt does experience anxious distress with depression. She noted that more recently that her sxs have been more indicative of anxiety-feeling restless, keyed up, and edgy while generally having some bouts of depressive sxs (depressed mood, fatigue, helplessness) amidst living with chronic pain. Pt also endorses sxs associated with PTSD while further investigation would be necessary to support formal diagnosis. Treatment Modality/Intervention(s): Dialectical Behavioral Therapy to teach basic skills for emotional regulation and distress tolerance. Acceptance and Commitment Therapy to assist with continued development of psychological flexibility. Treatment PLAN & Referrals Treatment and Follow-up Plan: Bi-weekly TeleHealth counseling documented in this encounter [facility] 10-09-2023 Telephone encounter Note [facility] contacted pt re: message to Dr. Addison about concerns of anxiety sxs and impact on functioning. Pt agreed to meet virtually with [facility] to discuss coping strategies before exploring medication to manage severity. Scheduled for intake on 2023 at 3 pm. [facility] 10-09-2023 Miscellaneous Notes [facility] contacted pt re: message to Dr. Addison about concerns of anxiety sxs and impact on functioning. Pt agreed to meet virtually with [facility] to discuss coping strategies before exploring medication to manage severity. Scheduled for intake on 2023 at 3 pm. documented in this encounter [facility] 09-21-2023 Evaluation + Plan note Associated Problem(s): Menopausal syndrome on hormone replacement therapy Controlled After addressing medication(s) compliance, adverse effects, and efficacy of treatment(s), medications for this controlled chronic condition will be continued. LFTs today, at 3 months, 6 and then 9 months after starting (has been <1 month) [facility] 09-21-2023 Evaluation + Plan note Associated Problem(s): Pain in both hands Exam consistent with OA Patient will use topical Voltaren gel - has some at home Use heat PRN [facility] 09-21-2023 Evaluation + Plan note Associated Problem(s): Chronic painful diabetic neuropathy (CMS/HCC) (HCC) Controlled After addressing medication(s) compliance, adverse effects, and efficacy of treatment(s), medications for this controlled chronic condition will be continued. UDS obtained today Annual LTOT paperwork filled out [facility] 09-21-2023 Miscellaneous Notes Associated Problem(s): Menopausal syndrome on hormone replacement therapy Controlled After addressing medication(s) compliance, adverse effects, and efficacy of treatment(s), medications for this controlled chronic condition will be continued. LFTs today, at 3 months, 6 and then 9 months after starting (has been <1 month) Associated Problem(s): Pain in both hands Exam consistent with OA Patient will use topical Voltaren gel - has some at home Use heat PRN Associated Problem(s): Chronic painful diabetic neuropathy (CMS/HCC) (HCC) Controlled After addressing medication(s) compliance, adverse effects, and efficacy of treatment(s), medications for this controlled chronic condition will be continued. UDS obtained today Annual LTOT paperwork filled out documented in this encounter [facility] 09-21-2023 Miscellaneous Notes Associated Problem(s): Menopausal syndrome on hormone replacement therapy Controlled After addressing medication(s) compliance, adverse effects, and efficacy of treatment(s), medications for this controlled chronic condition will be continued. LFTs today, at 3 months, 6 and then 9 months after starting (has been <1 month) Associated Problem(s): Pain in both hands Exam consistent with OA Patient will use topical Voltaren gel - has some at home Use heat PRN Associated Problem(s): Chronic painful diabetic neuropathy (CMS/HCC) (HCC) Controlled After addressing medication(s) compliance, adverse effects, and efficacy of treatment(s), medications for this controlled chronic condition will be continued. UDS obtained today Annual LTOT paperwork filled out Urine drug screen is concordant documented in this encounter [facility] 09-21-2023 History of Present illness Narrative Images from the original note were not included. Prechart note: (the following data was documented before the visit began) Rooming: labs from 03/19; urine for UDS, Hep B #3 if agreeable; yearly LTOT paperwork Possible agenda: HTN, LTOT Provider notes: Veozah? Multidisciplinary team needs: Health Maintenance to be addressed today: mammogram, CRC (Cologuard ) Health Maintenance Due Topic Date Due TSH Level Never done Vitamin B-12 Never done HIV Screening Never done Colorectal Cancer Screening Never done MMR Vaccines (1 of 1 - Standard series) Never done Diabetes: Foot Exam Never done Diabetes: Retinopathy Screening Never done Diabetes: Dental Exam Never done Hepatitis C Screening Never done Mammogram Never done Lipid Panel 06/11/2021 (end precharting)- [facility] [address] [facility] [id number] Dept: [phone] Dept Loc: [phone] Assessment/Plan 1. Chronic painful diabetic neuropathy (CMS/HCC) (HCC) Assessment & Plan: Controlled After addressing medication(s) compliance, adverse effects, and efficacy of treatment(s), medications for this controlled chronic condition will be continued. UDS obtained today Annual LTOT paperwork filled out Orders: - PAIN MANAGEMENT PANEL - Fentanyl & Metab, Ur Qnt - fentaNYL (Duragesic) 62.5 MCG/HR; Place 1 patch on the skin Every 72 hours., Starting Zahraa 09/21/2023, Until 10/21/2023, Normal - fentaNYL (Duragesic) 62.5 MCG/HR; Place 1 patch on the skin Every 72 hours. Do not start before October 21, 2023., Starting 10/21/2023, Until 11/20/2023, Normal - fentaNYL (Duragesic) 62.5 MCG/HR; Place 1 patch on the skin Every 72 hours. Do not start before November 20, 2023., Starting 11/20/2023, Until 12/20/2023, Normal - Comprehensive metabolic panel 2. Menopausal syndrome on hormone replacement therapy Assessment & Plan: Controlled After addressing medication(s) compliance, adverse effects, and efficacy of treatment(s), medications for this controlled chronic condition will be continued. LFTs today, at 3 months, 6 and then 9 months after starting (has been <1 month) Orders: - Fezolinetant (Veozah) 45 MG tablet; Take 45 mg by mouth daily., Starting Zahraa 09/21/2023, Until Mon12/20/2023, Normal 3. Pain in both hands Assessment & Plan: Exam consistent with OA Patient will use topical Voltaren gel - has some at home Use heat PRN 4. Need for vaccination - Hepatitis B vaccine adult IM Follow Up: Follow up in about 3 months (around 12/21/2023). [facility]V munir Villelaluisa Azael, 09/21/23 9:27 AM Subjective Jael Benson is a 58 y.o. who presents for: Chief Complaint Patient presents with LTOT Med Refill HPI Doing well with current dose of duragesic patch - needs refills Controlled Substances Monitoring: No data to display OARRs Reviewed. [facility] PAIN MANAGEMENT DRUG PANEL Date Value Ref Range Status 03/16/2022 NEGATIVE NA Final No results found for: TRAMADOLUR [facility] pain management panel concordant: Yes fentanyl Rationale for use of opioid: To treat moderate or severe pain and functional impairment caused by diagnosis of chronic painful DM neuropathy Patient did not receive adequate pain control/function with 2 non-opioid treatments including: acetaminophen, aspirin, Excedrin, naproxen, adjuvant anticonvulsants, and adjuvantantidepressants at maximum tolerated doses, or Physical therapy Specialist referral and recommendation: neurologist, pain management, palliative Opioid prescribed to treat non-cancer/non-malignant pain outside of active cancer treatment, palliative care, end of life/hospice care, sickle cell, severe burn, traumatic crushing of tissue, amputation, major orthopedic surgery. This short-acting opioid is prescribed after confirmation of the following; This patient is not opioid-naive. This patient has received opioid medications for at least 7 days prior to this prescription. An opioid agreement is recorded in the electronic record and confirms discussion of the benefits and risks of opioid therapy. RED FLAGS: Forging or altering a prescription: No Using another person's pain or scheduled medication: No Illegal drugs, including THC, in PNM: No Controlled drugs not prescribed by this office in PNM: No Intoxication: No Overdose: No Legal problems related to controlled substances: No Behavior that threatens staff or physician: No Accident motor vehicle crash: No Opioid Risk Tool Female Family History of Substance Abuse Alcohol [] 1 Illegal Drugs [] 2 Rx Drugs [] 4 Personal history of Substance Abuse Alcohol [] 3 Illegal Drugs [] 4 Rx Drugs [] 5 Age 16-45 years old [] 1 History of preadolescent sexual abuse [] 3 Psychological Disease ADD, OCD, bipolar, schizophrenia [] 2 Depression 1 TOTALS 1 Score Interpretation Low Risk: 0 to 3 Moderate Risk: 4 to 7 High Risk: > 8 Learn More About Using Opioids here PAIN ROS How is the pain medication helping your function: much improved: ambulation, bathing and hygiene, feeding, grooming, and dressing Are you having any sleepiness: No Are you having any constipation: No Are you having any mental slowing: No Are you having any sexual dysfunction: No PEG 1 (painon average in the past week with medications): 5 PEG 2 (pain interference with enjoyment of life): 5 PEG 3 (pain interference with normal activity): 5 SELF MANAGEMENT: The patient is interested in this area of self management: Meaningful life activities (familly, household responsibilities, work) Follow up of: hot flashes Medication(s) taking: veozah Days in a week that patient misses dose of med(s): none Adverse effects of medication(s): No Had some nausea when initially took it Did not have any hot flashes/sweating when came off hormones and onto Veozah Feels works better than hormones Follow up of: bilateral hand pain Medication(s) taking: none Days in a week that patient misses dose of med(s): n/a Adverse effects of medication(s): No Patient has swelling and pain base of thumbs and sometimes into knuckles Right-handed Not preventing doing things she usually does Allergies Allergen Reactions Oxycodone Anxiety and Other Severe insomnia Other reaction(s): Other (See Comments), Other (See Comments) Levofloxacin Other reaction(s): Other (See Comments), Other: See Comments insomnia insomnia Other reaction(s): anxious, Other (See Comments), Other: See Comments Diphenhydramine Other reaction(s): Agitation, Hyperactivity hyper Other reaction(s): Agitation, Other Iodinated Contrast Media Other reaction(s): Vomiting Metoclopramide Other Other reaction(s): Hyperactivity, Intolerance reglan hyper Other reaction(s): Intolerance, Other, Other (See Comments) Nitrofurantoin Other reaction(s): Intolerance macrobid Other reaction(s): Other (See Comments) Phenothiazines Other reaction(s): Hyperactivity, Intolerance compazine hyper Other reaction(s): Intolerance, Other Review of Systems Constitutional: Negative for fatigue, fever and unexpected weight change. Respiratory: Negative for shortness of breath. Cardiovascular: Negative for chest pain, palpitations and leg swelling. Gastrointestinal: Positive for constipation. Negative for abdominal pain, anal bleeding, blood in stool, diarrhea, nausea and vomiting. Neurological: Negative for dizziness, light-headedness and headaches. [] Problem list and/or medical history reviewed/updated as appropriate [] Medication list reviewed/updated [] Allergies reviewed/updated [] Patient requests medication refills, see below for orders. Last 3 PHQ-9 Scores 09/21/2023 0923 Patient Health Questionnaire-9 Score: 2 Last 3 JUVE-7 Scores No data found in the last 10 encounters. Objective (if obtainable) BP 127/81 (BP Location: Left arm, Patient Position: Sitting, BP Cuff Size: Adult) Pulse 85 Temp (!) 35.9 C (96.6 F) (Temporal) Resp 18 Ht 5' 4.02 (1.626 m) Wt 192 lb 6.4 oz (87.3 kg) BMI 33.01 kg/m Physical Exam Vitals reviewed. Constitutional: General: She is not in acute distress. HENT: Right Ear: External ear normal. Left Ear: External ear normal. Eyes: Conjunctiva/sclera: Conjunctivae normal. Cardiovascular: Rate and Rhythm: Normal rate and regular rhythm. Heart sounds: No murmur heard. Pulmonary: Effort: Pulmonary effort is normal. No respiratory distress. Breath sounds: Normal breath sounds. Abdominal: General: Bowel sounds are normal. There is no distension. Palpations: Abdomen is soft. There is no mass. Tenderness: There is no abdominal tenderness. There is no guarding. Musculoskeletal: General: Swelling and tenderness present. Normal range of motion. Cervical back: Normal range of motion and neck supple. Right lower leg: No edema. Left lower leg: No edema. Comments: Swelling and tenderness right MCP joint - mild; +heberden/aung's nodes bilaterally - minimal; mechanic helper strength 5/5 Lymphadenopathy: Cervical: No cervical adenopathy. Skin: General: Skin is warm and dry. Capillary Refill: Capillary refill takes less than 2 seconds. Neurological: General: No focal deficit present. Mental Status: She is alert. Mental status is at baseline. Cranial Nerves: No cranial nerve deficit. Gait: Gait normal. Psychiatric: Mood and Affect: Mood normal. Behavior: Behavior normal. Thought Content: Thought content normal. Judgment: Judgment normal. Visit reason: LTOT Additional information: no Medications needing to be refilled: Yes Patient was able to ambulate safely to the examination room. Provider was not notified of possible fall risk. Qa Lead: not offered PHQ2: negative Suicidal ideation: absent Food insecurity screening: negative Mechanic Helper used: no documented in this encounter [facility] 09-21-2023 History of Present illness Narrative Images from the original note were not included. Prechart note: (the following data was documented before the visit began) Rooming: labs from 03/19; urine for UDS, Hep B #3 if agreeable; yearly LTOT paperwork Possible agenda: HTN, LTOT Provider notes: Veozah? Multidisciplinary team needs: Health Maintenance to be addressed today: mammogram, CRC (Cologuard ) Health Maintenance Due Topic Date Due TSH Level Never done Vitamin B-12 Never done HIV Screening Never done Colorectal Cancer Screening Never done MMR Vaccines (1 of 1 - Standard series) Never done Diabetes: Foot Exam Never done Diabetes: Retinopathy Screening Never done Diabetes: Dental Exam Never done Hepatitis C Screening Never done Mammogram Never done Lipid Panel 06/11/2021 (end precharting)- [facility] [address] [facility] [address] Dept: [phone] Dept Loc: [phone] Assessment/Plan 1. Chronic painful diabetic neuropathy (CMS/HCC) (HCC) Assessment & Plan: Controlled After addressing medication(s) compliance, adverse effects, and efficacy of treatment(s), medications for this controlled chronic condition will be continued. UDS obtained today Annual LTOT paperwork filled out Orders: - PAIN MANAGEMENT PANEL - Fentanyl & Metab, Ur Qnt - fentaNYL (Duragesic) 62.5 MCG/HR; Place 1 patch on the skin Every 72 hours., Starting Zahraa 09/21/2023, Until 10/21/2023, Normal - fentaNYL (Duragesic) 62.5 MCG/HR; Place 1 patch on the skin Every 72 hours. Do not start before October 21, 2023., Starting 10/21/2023, Until 11/20/2023, Normal - fentaNYL (Duragesic) 62.5 MCG/HR; Place 1 patch on the skin Every 72 hours. Do not start before November 20, 2023., Starting 11/20/2023, Until Mon12/20/2023, Normal - Comprehensive metabolic panel 2. Menopausal syndrome on hormone replacement therapy Assessment & Plan: Controlled After addressing medication(s) compliance, adverse effects, and efficacy of treatment(s), medications for this controlled chronic condition will be continued. LFTs today, at 3 months, 6 and then 9 months after starting (has been <1 month) Orders: - Fezolinetant (Veozah) 45 MG tablet; Take 45 mg by mouth daily., Starting Zahraa 09/21/2023, Until Mon12/20/2023, Normal 3. Pain in both hands Assessment & Plan: Exam consistent with OA Patient will use topical Voltaren gel - has some at home Use heat PRN 4. Need for vaccination - Hepatitis B vaccine adult IM Follow Up: Follow up in about 3 months (around 12/21/2023). VV ok Niecy Addison, 09/21/23 9:27 AM Subjective Jael Benson is a 58 y.o. who presents for: Chief Complaint Patient presents with LTOT Med Refill HPI Doing well with current dose of duragesic patch - needs refills Controlled Substances Monitoring: No data to display OARRs Reviewed. [employer] PAIN MANAGEMENT DRUG PANEL Date Value Ref Range Status 03/16/2022 NEGATIVE NA Final No results found for: TRAMADOLUR Last pain management panel concordant: Yes fentanyl Rationale for use of opioid: To treat moderate or severe pain and functional impairment caused by diagnosis of chronic painful DM neuropathy Patient did not receive adequate pain control/function with 2 non-opioid treatments including: acetaminophen, aspirin, Excedrin, naproxen, adjuvant anticonvulsants, and adjuvantantidepressants at maximum tolerated doses, or Physical therapy Specialist referral and recommendation: neurologist, pain management, palliative Opioid prescribed to treat non-cancer/non-malignant pain outside of active cancer treatment, palliative care, end of life/hospice care, sickle cell, severe burn, traumatic crushing of tissue, amputation, major orthopedic surgery. This short-acting opioid is prescribed after confirmation of the following; This patient is not opioid-naive. This patient has received opioid medications for at least 7 days prior to this prescription. An opioid agreement is recorded in the electronic record and confirms discussion of the benefits and risks of opioid therapy. RED FLAGS: Forging or altering a prescription: No Using another person's pain or scheduled medication: No Illegal drugs, including THC, in PNM: No Controlled drugs not prescribed by this office in PNM: No Intoxication: No Overdose: No Legal problems related to controlled substances: No Behavior that threatens staff or physician: No Accident motor vehicle crash: No Opioid Risk Tool Female Family History of Substance Abuse Alcohol [] 1 Illegal Drugs [] 2 Rx Drugs [] 4 Personal history of Substance Abuse Alcohol [] 3 Illegal Drugs [] 4 Rx Drugs [] 5 Age 16-45 years old [] 1 History of preadolescent sexual abuse [] 3 Psychological Disease ADD, OCD, bipolar, schizophrenia [] 2 Depression 1 TOTALS 1 Score Interpretation Low Risk: 0 to 3 Moderate Risk: 4 to 7 High Risk: > 8 Learn More About Using Opioids here PAIN ROS How is the pain medication helping your function: much improved: ambulation, bathing and hygiene, feeding, grooming, and dressing Are you having any sleepiness: No Are you having any constipation: No Are you having any mental slowing: No Are you having any sexual dysfunction: No PEG 1 (painon average in the past week with medications): 5 PEG 2 (pain interference with enjoyment of life): 5 PEG 3 (pain interference with normal activity): 5 SELF MANAGEMENT: The patient is interested in this area of self management: Meaningful life activities (familly, household responsibilities, work) Follow up of: hot flashes Medication(s) taking: veozah Days in a week that patient misses dose of med(s): none Adverse effects of medication(s): No Had some nausea when initially took it Did not have any hot flashes/sweating when came off hormones and onto Veozah Feels works better than hormones Follow up of: bilateral hand pain Medication(s) taking: none Days in a week that patient misses dose of med(s): n/a Adverse effects of medication(s): No Patient has swelling and pain base of thumbs and sometimes into knuckles Right-handed Not preventing doing things she usually does Allergies Allergen Reactions Oxycodone Anxiety and Other Severe insomnia Other reaction(s): Other (See Comments), Other (See Comments) Levofloxacin Other reaction(s): Other (See Comments), Other: See Comments insomnia insomnia Other reaction(s): anxious, Other (See Comments), Other: See Comments Diphenhydramine Other reaction(s): Agitation, Hyperactivity hyper Other reaction(s): Agitation, Other Iodinated Contrast Media Other reaction(s): Vomiting Metoclopramide Other Other reaction(s): Hyperactivity, Intolerance reglan hyper Other reaction(s): Intolerance, Other, Other (See Comments) Nitrofurantoin Other reaction(s): Intolerance macrobid Other reaction(s): Other (See Comments) Phenothiazines Other reaction(s): Hyperactivity, Intolerance compazine hyper Other reaction(s): Intolerance, Other Review of Systems Constitutional: Negative for fatigue, fever and unexpected weight change. Respiratory: Negative for shortness of breath. Cardiovascular: Negative for chest pain, palpitations and leg swelling. Gastrointestinal: Positive for constipation. Negative for abdominal pain, anal bleeding, blood in stool, diarrhea, nausea and vomiting. Neurological: Negative for dizziness, light-headedness and headaches. [] Problem list and/or medical history reviewed/updated as appropriate [] Medication list reviewed/updated [] Allergies reviewed/updated [] Patient requests medication refills, see below for orders. Last 3 PHQ-9 Scores 09/21/2023 0923 Patient Health Questionnaire-9 Score: 2 Last 3 JUVE-7 Scores No data found in the last 10 encounters. Objective (if obtainable) BP 127/81 (BP Location: Left arm, Patient Position: Sitting, BP Cuff Size: Adult) Pulse 85 Temp (!) 35.9 C (96.6 F) (Temporal) Resp 18 Ht 5' 4.02 (1.626 m) Wt 192 lb 6.4 oz (87.3 kg) BMI 33.01 kg/m Physical Exam Vitals reviewed. Constitutional: General: She is not in acute distress. HENT: Right Ear: External ear normal. Left Ear: External ear normal. Eyes: Conjunctiva/sclera: Conjunctivae normal. Cardiovascular: Rate and Rhythm: Normal rate and regular rhythm. Heart sounds: No murmur heard. Pulmonary: Effort: Pulmonary effort is normal. No respiratory distress. Breath sounds: Normal breath sounds. Abdominal: General: Bowel sounds are normal. There is no distension. Palpations: Abdomen is soft. There is no mass. Tenderness: There is no abdominal tenderness. There is no guarding. Musculoskeletal: General: Swelling and tenderness present. Normal range of motion. Cervical back: Normal range of motion and neck supple. Right lower leg: No edema. Left lower leg: No edema. Comments: Swelling and tenderness right MCP joint - mild; +heberden/aung's nodes bilaterally - minimal; mechanic helper strength 5/5 Lymphadenopathy: Cervical: No cervical adenopathy. Skin: General: Skin is warm and dry. Capillary Refill: Capillary refill takes less than 2 seconds. Neurological: General: No focal deficit present. Mental Status: She is alert. Mental status is at baseline. Cranial Nerves: No cranial nerve deficit. Gait: Gait normal. Psychiatric: Mood and Affect: Mood normal. Behavior: Behavior normal. Thought Content: Thought content normal. Judgment: Judgment normal. Visit reason: LTOT Additional information: no Medications needing to be refilled: Yes Patient was able to ambulate safely to the examination room. Provider was not notified of possible fall risk. Qa Lead: not offered PHQ2: negative Suicidal ideation: absent Food insecurity screening: negative Mechanic Helper used: no documented in this encounter [facility] 09-21-2023 Instructions Niecy Addison DO - 09/21/2023 9:10 AM EST Please call [phone] to schedule an appointment for your mammogram. documented in this encounter [facility] 09-21-2023 Instructions Niecy Addison DO - 09/21/2023 9:10 AM EST Please call [phone] to schedule an appointment for your mammogram. documented in this encounter [facility] 09-21-2023 Progress note Formatting of t his note might be different from the original. Urine drug screen is concordant [facility] 07-18-2023 Telephone encounter Note Spoke with patient re: Leonel Patient has not gotten medication through [employer] nor has she gotten any letter in the mail stating it was approved Discussed she call [employer] to get it shipped to her (or see its status) Discussed how to take medication - stop hormones the day she starts Leonel May take 1 week to see effect and will likely have hot flashes during that time Discussed need to check LFTs at 3, 6, and 9 months after starting new medication Patient understands and agreeable to above - all questions answered [facility] 07-18-2023 Miscellaneous Notes Spoke with patient re: Leonel Patient has not gotten medication through [facility] nor has she gotten any letter in the mail stating it was approved Discussed she call [facility] to get it shipped to her (or see its status) Discussed how to take medication - stop hormones the day she starts Leonel May take 1 week to see effect and will likely have hot flashes during that time Discussed need to check LFTs at 3, 6, and 9 months after starting new medication Patient understands and agreeable to above - all questions answered documented in this encounter [facility] 07-13-2023 Telephone encounter Note Script printed. [employer] message to patient. [facility] 07-13-2023 Miscellaneous Notes Script printed. [employer] message to patient. Name of caller: Jael Contact phone number: [phone] Relationship to Patient: Spouse Provider: covering Practice: [facility] Chief Complaint/Reason for Call: Caller is wanting to see what else can be done to receive hard copy of script for fentaNYL (Duragesic) 62.5 MCG/HR As from message in [employer] the pt is leaving 07/18/2023 and would like to get this script picked up from the office before needing to leave state please advise Best time of day caller can be reached: any Patient advised that office/PCP has 24-48 business hours to return their call: No documented in this encounter [facility] 07-13-2023 Telephone encounter Note Name of caller: Jael Contact phone number: [phone] Relationship to Patient: Spouse Provider: covering Practice: [facility] Chief Complaint/Reason for Call: Caller is wanting to see what else can be done to receive hard copy of script for fentaNYL (Duragesic) 62.5 MCG/HR As from message in [employer] the pt is leaving 07/18/2023 and would like to get this script picked up from the office before needing to leave state please advise Best time of day caller can be reached: any Patient advised that office/PCP has 24-48 business hours to return their call: No [facility] [employer] 06-28-2023 History of Present illness Narrative Subjective Patient ID: Jael Benson is a 58 y.o. female. HPI Patient is here for 3 month follow up for hx of recurrent UTI'S. Some dysuria, no hematuria.. Patient does CIC. She is taking Macrodantin MWF. Cysto 04/19 showed mild trabeculation. Review of Systems Constitutional: Negative for chills and fever. HENT: Negative. Eyes: Negative. Respiratory: Negative for cough and shortness of breath. Cardiovascular: Negative for chest pain and leg swelling. Gastrointestinal: Negative for nausea. Endocrine: Negative. Genitourinary: Negative for difficulty urinating. Negative except for documented in HPI Allergic/Immunologic: Negative. Neurological: Alert & oriented X 3 Hematological: Denies blood thinners Psychiatric/Behavioral: Negative. Objective Physical Exam Vitals and nursing note reviewed. Pulmonary: Effort: Pulmonary effort is normal. Breath sounds: Normal breath sounds. Abdominal: Palpations: Abdomen is soft. Tenderness: There is no abdominal tenderness. Genitourinary: Comments: Kidneys non palpable bilaterally Bladder non palpable or tender Neurological: Mental Status: She is alert. Assessment/Plan Diagnoses and all orders for this visit: Urinary retention Neurogenic bladder Frequent UTI Treatment options for LUTS reviewed Continue CIC Discussed timed voiding. Discussed fluid and caffeine intake Lifestyle change to help prevent UTIs discussed. Encouraged fluid intake. Would treat only if Cx positive Continue Prophylaxis F/u 4-6 months documented in this encounter [facility] Work Phone: 06-22-2023 Evaluation + Plan note Associated Problem(s): Recurrent major depressive disorder, in remission (HCC) Controlled After addressing medication(s) compliance, adverse effects, and efficacy of treatment(s), medications for this controlled chronic condition will be continued. [facility] [employer] 06-22-2023 Evaluation + Plan note Associated Problem(s): Menopausal syndrome on hormone replacement therapy Controlled After addressing medication(s) compliance, adverse effects, and efficacy of treatment(s), medications for this controlled chronic condition will be continued. Discussed expense of any new drug on market She will talk with her and investigate cost Would be candidate since already on gabapentin and venlafaxine and hot flashes still uncontrolled [facility] [employer] 06-22-2023 Miscellaneous Notes Associated Problem(s): Recurrent major depressive disorder, in remission (HCC) Controlled After addressing medication(s) compliance, adverse effects, and efficacy of treatment(s), medications for this controlled chronic condition will be continued. Associated Problem(s): Menopausal syndrome on hormone replacement therapy Controlled After addressing medication(s) compliance, adverse effects, and efficacy of treatment(s), medications for this controlled chronic condition will be continued. Discussed expense of any new drug on market She will talk with her and investigate cost Would be candidate since already on gabapentin and venlafaxine and hot flashes still uncontrolled Associated Problem(s): Coronary artery disease involving [place] coronary artery of fed[place] heart without angina pectoris Controlled After addressing medication(s) compliance, adverse effects, and efficacy of treatment(s), medications for this controlled chronic condition will be continued. Associated Problem(s): Chronic painful diabetic neuropathy (CMS/HCC) (HCC) Controlled After addressing medication(s) compliance, adverse effects, and efficacy of treatment(s), medications for this controlled chronic condition will be continued. documented in this encounter [facility] 06-22-2023 Evaluation + Plan note Associated Problem(s): Coronary artery disease involving [place] coronary artery of [place] heart without angina pectoris Controlled After addressing medication(s) compliance, adverse effects, and efficacy of treatment(s), medications for this controlled chronic condition will be continued. [facility] 06-22-2023 Evaluation + Plan note Associated Problem(s): Chronic painful diabetic neuropathy (CMS/HCC) (HCC) Controlled After addressing medication(s) compliance, adverse effects, and efficacy of treatment(s), medications for this controlled chronic condition will be continued. [facility] 06-22-2023 History of Present illness Narrative Images from the original note were not included. Prechart note: (the following data was documented before the visit began) Rooming: Possible agenda: LTOT Provider notes: PDMP inaccurate? EHR 05/17 for fentanyl; March for PDMP Lab did not draw blood work from 03/19 - need next appointment to be inperson Multidisciplinary team needs: Health Maintenance to be addressed today: cologuard ordered but not done and mammogram (need new order - exp 07/19) Health Maintenance Due Topic Date Due TSH Level Never done Vitamin B-12 Never done HIV Screening Never done Colorectal Cancer Screening Never done MMR Vaccines (1 of 1 - Standard series) Never done Diabetes: Foot Exam Never done Diabetes: Retinopathy Screening Never done Diabetes: Dental Exam Never done Hepatitis C Screening Never done Mammogram Never done Diabetes: Hemoglobin A1C 04/28/2020 Hepatitis B Vaccines (2 of 3 - 19+ 3-dose series) 07/09/2020 Lipid Panel 06/11/2021 COVID-19 Vaccine (4 - Moderna series) 10/14/2021 Influenza Vaccine (1) 04/28/2023 (end precharting)- [facility] [place] [address] [facility] [address] Dept: [phone] Dept Loc: [phone] Subjective Patient was seen today via Telehealth by agreement and consent. I used the following Telehealth technology: Audio and video capabilities. Patient location: Patient Location: Home. This patient encounter is appropriate and reasonable under the circumstances: unable to drive . The patient has been advised of the potential risks and limitations of this mode of treatment (including but not limited to the absence of in-person examination) and has agreed to be treated in a remote fashion in spite of them. Any and all of the patient's/patient's family's questions on this issue have been answered and I have made no promises or guarantees to the patient. The patient has also been advised to contact this office for worsening conditions or problems, and seek emergency medical treatment and/or call 911 if the patient deems either necessary. The patient stated that they are currently in the state [facility]. If the patient is a minor, permission has been obtained by the parent or guardian for the patient to receive medical care at this visit. Jael Benson is a 58 y.o. who presents for a telehealth visit. Assessment/Plan 1. Chronic painful diabetic neuropathy (CMS/HCC) ([facility]) Assessment & Plan: Controlled After addressing medication(s) compliance, adverse effects, and efficacy of treatment(s), medications for this controlled chronic condition will be continued. Orders: - fentaNYL (Duragesic) 62.5 MCG/HR; Place 1 patch on the skin Every 72 hours. Do not start before June 24, 2023., Starting 06/24/2023, Until 07/24/2023, Normal - fentaNYL (Duragesic) 62.5 MCG/HR; Place 1 patch on the skin Every 72 hours. Do not start before July 24, 2023., Starting 07/24/2023, Until 08/23/2023, Normal - fentaNYL (Duragesic) 62.5 MCG/HR; Place 1 patch on the skin Every 72 hours. Do not start before August 23, 2023., Starting Mon08/23/2023, Until Mon09/22/2023, Normal - gabapentin (Neurontin) 400 MG capsule; Take 1 capsule (400 mg) by mouth 2 times daily., Starting Mon06/22/2023, Until Mon12/19/2023, Normal 2. Recurrent major depressive disorder, in remission (HCC) Assessment & Plan: Controlled After addressing medication(s) compliance, adverse effects, and efficacy of treatment(s), medications for this controlled chronic condition will be continued. Orders: - venlafaxine XR (Effexor XR) 150 MG 24 hr capsule; Take 1 capsule (150 mg) by mouth daily., Starting Mon06/22/2023, Until Mon06/16/2024, Normal - venlafaxine (Effexor) 75 MG tablet; Take 1 tablet (75 mg) by mouth Nightly., Starting Mon06/22/2023, Until Mon06/16/2024, Normal 3. Coronary artery disease involving [place] coronary artery of [place] heart without angina pectoris Assessment & Plan: Controlled After addressing medication(s) compliance, adverse effects, and efficacy of treatment(s), medications for this controlled chronic condition will be continued. Orders: - atorvastatin (Lipitor) 40 MG tablet; Take 1 tablet (40 mg) by mouth daily., Starting Mon06/22/2023, Until Mon06/16/2024, Normal 4. Menopausal syndrome on hormone replacement therapy Assessment & Plan: Controlled After addressing medication(s) compliance, adverse effects, and efficacy of treatment(s), medications for this controlled chronic condition will be continued. Discussed expense of any new drug on market She will talk with her and investigate cost Would be candidate since already on gabapentin and venlafaxine and hot flashes still uncontrolled Orders: - medroxyPROGESTERone (Provera) 2.5 MG tablet; Take 1 tablet (2.5 mg) by mouth daily., Starting Mon06/22/2023, Until Mon06/16/2024, Normal - estradiol (Estrace) 0.5 MG tablet; Take 1 tablet (0.5 mg) by mouth daily., Starting Mon06/22/2023, Until Mon06/16/2024, Normal 5. Colon cancer screening Comments: Patient has Cologuard at home and will do it soon 6. Encounter for screening mammogram for malignant neoplasm of breast Comments: Reminded patient to obtain mammogram - she has phone number Health Maintenance Due Topic TSH Level Vitamin B-12 HIV Screening Colorectal Cancer Screening MMR Vaccines (1 of 1 - Standard series) Diabetes: Foot Exam Diabetes: Retinopathy Screening Diabetes: Dental Exam Hepatitis C Screening Mammogram Diabetes: Hemoglobin A1C Hepatitis B Vaccines (2 of 3 - 19+ 3-dose series) Lipid Panel COVID-19 Vaccine (4 - Moderna series) Influenza Vaccine (1) Follow Up: Follow up in about 3 months (around 09/22/2023) for LTOT, labs, for in-person OV, with PCP or Pod provider. Niecy Addison DO 06/22/23 9:01 AM Reason for visit/Primary concern: Chief Complaint Patient presents with Med Refill LTOT HPI Patient doing well on patches Needs refills on most of her medications Got last refill at end of April in [place] since out-of-town (mother ) Follow up of: CAD Medication(s) taking: lipitor, asa Days in a week that patient misses dose of med(s): none Adverse effects of medication(s): No Follow up of: hot flashes Medication(s) taking: provera, estradiol Days in a week that patient misses dose of med(s): none Adverse effects of medication(s): No Wondering about new non-hormonal pill for hot flashes Would be willing to try something new to get off hormones Follow up of: depression Medication(s) taking: venlafaxine Days in a week that patient misses dose of med(s): none Adverse effects of medication(s): No No concerns Spirits up Mother last month - was sick, ALS Controlled Substances Monitoring: No flowsheet data found. OARRs Reviewed. [facility] PAIN MANAGEMENT DRUG PANEL Date Value Ref Range Status 03/16/2022 NEGATIVE NA Final No results found for: TRAMADOLUR Last pain management panel concordant: Yes - last done 06/16/2023 Rationale for use of opioid: To treat moderate or severe pain and functional impairment caused by diagnosis of diabetic neuropathy Patient did not receive adequate pain control/function with 2 non-opioid treatments including: adjuvant anticonvulsants and adjuvantantidepressants at maximum tolerated doses Specialist referral and recommendation: Palliative, Pain Medicine Opioid prescribed to treat non-cancer/non-malignant pain outside of active cancer treatment, palliative care, end of life/hospice care, sickle cell, severe burn, traumatic crushing of tissue, amputation, major orthopedic surgery. This short-acting opioid is prescribed after confirmation of the following; This patient is not opioid-naive.This patient has received opioid medications for at least 7 days prior to this prescription. An opioid agreement is recorded in the electronic record and confirms discussion of the benefits and risks of opioid therapy. RED FLAGS: Forging or altering a prescription: No Using another person's pain or scheduled medication: No Illegal drugs, including THC, in PNM: No Controlled drugs not prescribed by this office in PNM: No Intoxication: No Overdose: No Legal problems related to controlled substances: No Behavior that threatens staff or physician: No Accident motor vehicle crash: No PAIN ROS How is the pain medication helping your function: improved: ambulation, bathing and hygiene, feeding, grooming, and dressing Are you having any sleepiness: No Are you having any constipation: No Are you having any mental slowing: No Are you having any sexual dysfunction: No PEG 1 (painon average in the past week with medications): 3 PEG 2 (pain interference with enjoyment of life): 1 PEG 3 (pain interference with normal activity): 1 SELF MANAGEMENT: The patient is interested in this area of self management: Meaningful life activities (familly, household responsibilities, work) Now just taking 6 OTC stool softeners - previously 10/day Allergies Allergen Reactions Oxycodone Anxiety and Other Severe insomnia Other reaction(s): Other (See Comments), Other (See Comments) Levofloxacin Other reaction(s): Other (See Comments), Other: See Comments insomnia insomnia Other reaction(s): anxious, Other (See Comments), Other: See Comments Diphenhydramine Other reaction(s): Agitation, Hyperactivity hyper Other reaction(s): Agitation, Other Iodinated Contrast Media Other reaction(s): Vomiting Metoclopramide Other Other reaction(s): Hyperactivity, Intolerance reglan hyper Other reaction(s): Intolerance, Other, Other (See Comments) Nitrofurantoin Other reaction(s): Intolerance macrobid Other reaction(s): Other (See Comments) Phenothiazines Other reaction(s): Hyperactivity, Intolerance compazine hyper Other reaction(s): Intolerance, Other Review of Systems [] Problem list and/or medical history reviewed/updated as appropriate [] Medication list reviewed/updated [] Allergies reviewed/updated Last 3 PHQ-9 Scores No data found in the last 10 encounters. Last 3 JUVE-7 Scores No data found in the last 10 encounters. PHQ-2/9 Objective (if obtainable) Physical Exam Constitutional: General: She is not in acute distress. Appearance: Normal appearance. HENT: Head: Normocephalic. Pulmonary: Effort: Pulmonary effort is normal. No respiratory distress. Neurological: General: No focal deficit present. Mental Status: She is alert. Mental status is at baseline. Psychiatric: Mood and Affect: Mood normal. Behavior: Behavior normal. Thought Content: Thought content normal. Judgment: Judgment normal. documented in this encounter [facility] 04-12-2023 History of Present illness Narrative . HX OF FREQUENT UTIS AND BLADDER INFECTIONS. SHE RECENTLYCOMPLETED ANTIBX. SHE HAS A NGB FROM [facility] AND HAS TO DO CIC. HAS OCCASIONAL FREQUENCY AND URGENCY IN THE MORNING. . DENIES HEMATURIA. NOCTURIA X 0. [facility] Work Phone: 04-04-2023 Telephone encounter Note Medication(s) refilled: Requested Prescriptions Signed Prescriptions Disp Refills gabapentin (Neurontin) 400 MG capsule 180 capsule 0 Sig: Take 1 capsule (400 mg) by mouth 2 times daily. Authorizing Provider: NIECY ADDISON DO 04/04/2023 11:04 AM [facility] 04-04-2023 Miscellaneous Notes Medication(s) refilled: Requested Prescriptions Signed Prescriptions Disp Refills gabapentin (Neurontin) 400 MG capsule 180 capsule 0 Sig: Take 1 capsule (400 mg) by mouth 2 times daily. Authorizing Provider: NIECY ADDISON DO 04/04/2023 11:04 AM Medication name: gabapentin (Neurontin) 400 MG capsule Medication dosage: 400 mg (Miligrams Monthly quantity needed: 60 How many day supply requestin days Medication route: oral (PO) Medication administration time(s): 2 times a day (BID) If taking medication PRN, reason for taking medication: N/A If this is a controlled substance do you receive this or any other controlled medication from any other doctor or facility: No Ordering provider: Dr Addison Date of last office visit: 03/10/2023 Date of next office visit: 06/22/2023 Date of last refill: (see medication tab): 03/30/2023 - was 7 day Rx Updated/Validated preferred pharmacy: Yes Patient instructed to contact the pharmacy prior to picking up the medication: Yes documented in this encounter [facility] [employer] 04-04-2023 Telephone encounter Note Medication name: gabapentin (Neurontin) 400 MG capsule Medication dosage: 400 mg (Miligrams Monthly quantity needed: 60 How many day supply requestin days Medication route: oral (PO) Medication administration time(s): 2 times a day (BID) If taking medication PRN, reason for taking medication: N/A If this is a controlled substance do you receive this or any other controlled medication from any other doctor or facility: No Ordering provider: Dr Addison Date of last office visit: 03/10/2023 Date of next office visit: 06/22/2023 Date of last refill: (see medication tab): 03/30/2023 - was 7 day Rx Updated/Validated preferred pharmacy: Yes Patient instructed to contact the pharmacy prior to picking up the medication: Yes [facility] [employer] [facility] 03-31-2023 Telephone encounter Note Gabapentin sent yesterday - see TE Medication(s) refilled: Requested Prescriptions Signed Prescriptions Disp Refills losartan (Cozaar) 50 MG tablet 90 tablet 1 Sig: Take 1 tablet (50 mg) by mouth daily. Authorizing Provider: NIECY ADDISON DO 03/31/2023 9:41 AM [facility] 03-31-2023 Miscellaneous Notes Gabapentin sent yesterday - see TE Medication(s) refilled: Requested Prescriptions Signed Prescriptions Disp Refills losartan (Cozaar) 50 MG tablet 90 tablet 1 Sig: Take 1 tablet (50 mg) by mouth daily. Authorizing Provider: NIECY ADDISON DO 03/31/2023 9:41 AM Images from the original note were not included. Medication name: gabapentin (Neurontin) 400 MG capsule 400 mg, 2 times daily 0 ordered Summary: Take 1 capsule (400 mg) by mouth 2 times daily for 7 days., Starting Zahraa 03/30/2023, Until Zahraa 04/06/2023, Normal Dose, Route, Frequency: 400 mg, Oral, 2 times daily Start: 03/30/2023 End: 04/06/2023 Ord/Sold: 03/30/2023 (O) Report Adh: Taking: Long-term: Pharmacy: [facility]/pharmacy #[id number] - [place], [place] - [address] [facility] [address] Med Dose History Change Patient Sig: Take 1 capsule (400 mg) by mouth 2 times daily for 7 days. Ordered on: 03/30/2023 Authorized by: NIECY ADDISON Dispense: 14 capsule Prior Authorization: Request PA If this is a controlled substance do you receive this or any other controlled medication from any other doctor or facility: N/A Date of last office visit: not found Date of next office visit: 06/22/2023 Date of last refill: (see medication tab): 11/08/2022 Updated/Validated preferred pharmacy: Yes Patient instructed to contact the pharmacy prior to picking up the medication: Yes (2) losartan (Cozaar) 50 MG tablet () 50 mg, Daily 1 ordered Summary: Take 1 tablet (50 mg) by mouth daily., Starting 11/08/2022, Until 02/06/2023, Normal Dose, Route, Frequency: 50 mg, Oral, Daily Start: 11/08/2022 End: 02/06/2023 Ord/Sold: 11/08/2022 (O) Report Adh: Taking: Long-term: Pharmacy: [facility]/pharmacy #[id number] - [place], [facility] [address] ON [facility] Dose History Change Patient Sig: Take 1 tablet (50 mg) by mouth daily. Ordered on: 11/08/2022 Authorized by: NIECY ADDISON Dispense: 90 tablet Prior Authorization: Request PA Requesting a 90 day supply be sent to mail in pharmacy. Please Advise. documented in this encounter [facility] 03-31-2023 Telephone encounter Note Images from the original note were not included. Medication name: gabapentin (Neurontin) 400 MG capsule 400 mg, 2 times daily 0 ordered Summary: Take 1 capsule (400 mg) by mouth 2 times daily for 7 days., Starting Zahraa 03/30/2023, Until Zahraa 04/06/2023, Normal Dose, Route, Frequency: 400 mg, Oral, 2 times daily Start: 03/30/2023 End: 04/06/2023 Ord/Sold: 03/30/2023 (O) Report Adh: Taking: Long-term: Pharmacy: [facility]/pharmacy #[id number] - [place], [facility] [address] [facility] Dose History Change Patient Sig: Take 1 capsule (400 mg) by mouth 2 times daily for 7 days. Ordered on: 03/30/2023 Authorized by: NIECY ADDISON Dispense: 14 capsule Prior Authorization: Request PA If this is a controlled substance do you receive this or any other controlled medication from any other doctor or facility: N/A Date of last office visit: not found Date of next office visit: 06/22/2023 Date of last refill: (see medication tab): 11/08/2022 Updated/Validated preferred pharmacy: Yes Patient instructed to contact the pharmacy prior to picking up the medication: Yes (2) losartan (Cozaar) 50 MG tablet () 50 mg, Daily 1 ordered Summary: Take 1 tablet (50 mg) by mouth daily., Starting 11/08/2022, Until 02/06/2023, Normal Dose, Route, Frequency: 50 mg, Oral, Daily Start: 11/08/2022 End: 02/06/2023 Ord/Sold: 11/08/2022 (O) Report Adh: Taking: Long-term: Pharmacy: [facility]/pharmacy #[id number] - [place], [place] - [address] [facility] [address] Med Dose History Change Patient Sig: Take 1 tablet (50 mg) by mouth daily. Ordered on: 11/08/2022 Authorized by: NIECY ADDISON Dispense: 90 tablet Prior Authorization: Request PA Requesting a 90 day supply be sent to mail in pharmacy. Please Advise. [facility] 03-30-2023 Telephone encounter Note Medication(s) refilled: Requested Prescriptions Signed Prescriptions Disp Refills gabapentin (Neurontin) 400 MG capsule 14 capsule 0 Sig: Take 1 capsule (400 mg) by mouth 2 times daily for 7 days. Authorizing Provider: NIECY ADDISON DO 03/30/2023 9:14 AM T [facility] 03-30-2023 Miscellaneous Notes Medication(s) refilled: Requested Prescriptions Signed Prescriptions Disp Refills gabapentin (Neurontin) 400 MG capsule 14 capsule 0 Sig: Take 1 capsule (400 mg) by mouth 2 times daily for 7 days. Authorizing Provider: NIECY ADDISON DO 03/30/2023 9:14 AM Medication name: gabapentin (Neurontin) Medication dosage: 400 mg (Miligrams Monthly quantity needed: 14 How many day supply requestin Medication route: oral (PO) Medication administration time(s): Take 1 capsule (400 mg) by mouth 2 times daily for 7 days If taking medication PRN, reason for taking medication: N/A If this is a controlled substance do you receive this or any other controlled medication from any other doctor or facility: No Ordering provider: Dr. Addison Date of last office visit: 03/10/23 Date of next office visit: 06/22/23 Date of last refill: (see medication tab): 12/23/22 Updated/Validated preferred pharmacy: Yes Patient instructed to contact the pharmacy prior to picking up the medication: Yes documented in this encounter [facility] 03-30-2023 Telephone encounter Note Medication name: gabapentin (Neurontin) Medication dosage: 400 mg (Miligrams Monthly quantity needed: 14 How many day supply requestin Medication route: oral (PO) Medication administration time(s): Take 1 capsule (400 mg) by mouth 2 times daily for 7 days If taking medication PRN, reason for taking medication: N/A If this is a controlled substance do you receive this or any other controlled medication from any other doctor or facility: No Ordering provider: Dr. Addison Date of last office visit: 03/10/23 Date of next office visit: 06/22/23 Date of last refill: (see medication tab): 12/23/22 Updated/Validated preferred pharmacy: Yes Patient instructed to contact the pharmacy prior to picking up the medication: Yes [facility] 03-10-2023 Evaluation + Plan note Associated Problem(s): Chronic painful diabetic neuropathy (CMS/HCC) (HCC) Controlled After addressing medication(s) compliance, adverse effects, and efficacy of treatment(s), medications for this controlled chronic condition will be continued. [facility] 03-10-2023 Miscellaneous Notes Associated Problem(s): Chronic painful diabetic neuropathy (CMS/HCC) (HCC) Controlled After addressing medication(s) compliance, adverse effects, and efficacy of treatment(s), medications for this controlled chronic condition will be continued. documented in this encounter [facility] 03-10-2023 History of Present illness Narrative Images from the original note were not included. [facility] [place] [address] [facility] [address] Dept: [phone] Dept Loc: [phone] Subjective Patient was seen today via Telehealth by agreement and consent. I used the following Telehealth technology: Audio and video capabilities. Patient location: Patient Location: Home. This patient encounter is appropriate and reasonable under the circumstances: transportation issues and does not drive . The patient has been advised of the potential risks and limitations of this mode of treatment (including but not limited to the absence of in-person examination) and has agreed to be treated in a remote fashion in spite of them. Any and all of the patient's/patient's family's questions on this issue have been answered and I have made no promises or guarantees to the patient. The patient has also been advised to contact this office for worsening conditions or problems, and seek emergency medical treatment and/or call 911 if the patient deems either necessary. The patient stated that they are currently in the [facility]. If the patient is a minor, permission has been obtained by the parent or guardian for the patient to receive medical care at this visit. Jael Benson is a 57 y.o. who presents for a telehealth visit. Reason for visit/Primary concern: Chief Complaint Patient presents with Med Refill LTOT HPI Wants to change pharmacies - doesn't have one pharmacist at current one she gets her patches Telling patient that she should call them 2 weeks before she is due to make sure they have it in stock and need to order [facility] in [place] - have already checked into it Controlled Substances Monitoring: No flowsheet data found. OARRs Reviewed. [facility] PAIN MANAGEMENT DRUG PANEL Date Value Ref Range Status 03/16/2022 NEGATIVE NA Final No results found for: TRAMADOLUR Last pain management panel concordant: Yes - pain management panel 12/14/22 concordant Rationale for use of opioid: To treat moderate or severe pain and functional impairment caused by diagnosis of severe diabetic neuropathy Patient did not receive adequate pain control/function with 2 non-opioid treatments including: adjuvant anticonvulsants and adjuvantantidepressants at maximum tolerated doses Specialist referral and recommendation: endocrine; pain management Opioid prescribed to treat non-cancer/non-malignant pain outside of active cancer treatment, palliative care, end of life/hospice care, sickle cell, severe burn, traumatic crushing of tissue, amputation, major orthopedic surgery. This short-acting opioid is prescribed after confirmation of the following; This patient is not opioid-naive.This patient has received opioid medications for at least 7 days prior to this prescription. An opioid agreement is recorded in the electronic record and confirms discussion of the benefits and risks of opioid therapy. RED FLAGS: Forging or altering a prescription: No Using another person's pain or scheduled medication: No Illegal drugs, including THC, in PNM: No Controlled drugs not prescribed by this office in PNM: No Intoxication: No Overdose: No Legal problems related to controlled substances: No Behavior that threatens staff or physician: No Accident motor vehicle crash: No PAIN ROS How is the pain medication helping your function: much improved: ambulation, bathing and hygiene, feeding, continence, grooming, toileting, and dressing Are you having any sleepiness: No Are you having any constipation: No Are you having any mental slowing: No Are you having any sexual dysfunction: No PEG 1 (pain on average in the past week with medications): 4 (this was after a bike ride for 14 miles - recumbent bike, no resting) PEG 2 (pain interference with enjoyment of life): 1 PEG 3 (pain interference with normal activity): 1 SELF MANAGEMENT: The patient is interested in this area of self management: Meaningful life activities (familly, household responsibilities, work) Allergies Allergen Reactions Oxycodone Anxiety and Other Severe insomnia Other reaction(s): Other (See Comments), Other (See Comments) Levofloxacin Other reaction(s): Other (See Comments), Other: See Comments insomnia insomnia Other reaction(s): anxious, Other (See Comments), Other: See Comments Diphenhydramine Other reaction(s): Agitation, Hyperactivity hyper Other reaction(s): Agitation, Other Iodinated Contrast Media Other reaction(s): Vomiting Metoclopramide Other Other reaction(s): Hyperactivity, Intolerance reglan hyper Other reaction(s): Intolerance, Other, Other (See Comments) Nitrofurantoin Other reaction(s): Intolerance macrobid Other reaction(s): Other (See Comments) Phenothiazines Other reaction(s): Hyperactivity, Intolerance compazine hyper Other reaction(s): Intolerance, Other Review of Systems [] Problem list and/or medical history reviewed/updated as appropriate [] Medication list reviewed/updated [] Allergies reviewed/updated [] Patient requests medication refills, see below for orders. Last 3 PHQ-9 Scores No data found in the last 10 encounters. Last 3 JUVE-7 Scores No data found in the last 10 encounters. Objective (if obtainable) Physical Exam Constitutional: General: She is not in acute distress. Appearance: Normal appearance. Pulmonary: Effort: Pulmonary effort is normal. No respiratory distress. Musculoskeletal: Cervical back: Normal range of motion. Neurological: General: No focal deficit present. Mental Status: She is alert and oriented to person, place, and time. Mental status is at baseline. Psychiatric: Mood and Affect: Mood normal. Behavior: Behavior normal. Thought Content: Thought content normal. Judgment: Judgment normal. Assessment/Plan 1. Chronic painful diabetic neuropathy (CMS/HCC) ([facility]) Assessment & Plan: Controlled After addressing medication(s) compliance, adverse effects, and efficacy of treatment(s), medications for this controlled chronic condition will be continued. Orders: - fentaNYL (Duragesic) 62.5 MCG/HR; Place 1 patch on the skin Every 72 hours. Do not start before April 17, 2023., Starting 04/17/2023, Until Mon05/17/2023, Normal - fentaNYL (Duragesic) 62.5 MCG/HR; Place 1 patch on the skin Every 72 hours. Do not start before March 18, 2023., Starting 03/18/2023, Until Mon04/17/2023, Normal - fentaNYL (Duragesic) 62.5 MCG/HR; Place 1 patch on the skin Every 72 hours. Do not start before May 17, 2023., Starting 05/17/2023, Until Mon06/16/2023, Normal - PAIN MANAGEMENT PANEL - Fentanyl & Metab, Ur Qnt - TSH - Vitamin B12 - Hemoglobin A1c 2. Screening for lipid disorders - Lipid panel 3. Need for hepatitis C screening test - Hepatitis C antibody 4. Screening for HIV (human immunodeficiency virus) - HIV-1 and HIV-2 Antigen-Antibody Screen 5. Thyroid disorder screen - TSH Health Maintenance Due Topic TSH Level Vitamin B-12 HIV Screening Colorectal Cancer Screening MMR Vaccines (1 of 1 - Standard series) Diabetes: Foot Exam Diabetes: Retinopathy Screening Diabetes: Dental Exam Hepatitis C Screening Mammogram Diabetes: Hemoglobin A1C Hepatitis B Vaccines (2 of 3 - 19+ 3-dose series) Lipid Panel COVID-19 Vaccine (4 - Booster for Moderna series) Influenza Vaccine (1) Follow Up: Follow up in about 3 months (around 06/22/2023) for LTOT, for Telehealth, with PCP or Pod provider. Niecy Addison DO 03/10/23 3:17 PM documented in this encounter [facility] 02-10-2023 Telephone encounter Note LTOT VV APPT ON 03/09/23 11:10 AM [facility] 02-10-2023 Miscellaneous Notes LTOT VV APPT ON 03/09/23 11:10 AM Name of caller: Jael Contact phone number: [phone] Relationship to Patient: Pt Provider: Azael Practice: [facility] [place] Chief Complaint/Reason for Call: Pt called in stating she isn't sure when her next LTOT appt should be. Pt would like advised and scheduled accordingly. Please advise. Best time of day caller can be reached: Any Patient advised that office/PCP has 24-48 business hours to return their call: No documented in this encounter [facility] 02-10-2023 Telephone encounter Note Name of caller: Jael Contact phone number: [phone] Relationship to Patient: Pt Provider: Azael Practice: [facility] [place] Chief Complaint/Reason for Call: Pt called in stating she isn't sure when her next LTOT appt should be. Pt would like advised and scheduled accordingly. Please advise. Best time of day caller can be reached: Any Patient advised that office/PCP has 24-48 business hours to return their call: No [facility] 12-14-2022 History of Present illness Narrative Last does of pain medication 12/11/2022 at 8:30pm Images from the original note were not included. [facility] Palliative Care Location: [facility] Long-Term Opiate Therapy Patient Encounter Chief Complaint: Jael Benson is a 57 y.o. female with chief complaint of chronic pain, long-term opiate use, continuous Assessment/Plan Diabetic Polyneuropathy Chronic Pain - recommend continue fentanyl 62.5 mcg/hr patch, patient is achieving symptomatic relief and has had improvement in her functional status and ability to perform ADLs -pt has not tolerated morphine or oxycodone, is not at high risk for fever and increased drug uptake, has subcutaneous tissue for medication to depot. Frequently sweats but with application of medical tape fentanyl patches stay on. Denies drug rash as long as she has version of drug carried by [facility] Request for refill and need for prior auth forwarded to PCP - pt working to get insurance approval for spinal cord stimulator to alleviate some of her symptoms - physician letter needed for appeal, stating that spinal cord stimulator has the potential to assist with alleviating symptoms of polyneuropathy which are severe and could lower her opioid requirements and improve her quality of life. Patient has refractory symptoms which are not alleviated with typical medication modalities. -reviewed OP notes from Gavin Cruz at [facility]- he attempted [id number], reviewed with [facility] that [facility] has FDA approval for diabetic polyneuropathy - constipation is main opioid adverse effect patient is experiencing at this time -continue adjuvant agents including gabapentin, effexor -pt has also tried epidural steroid injections and physical therapy in the past without relief of symptoms DM 1 Pt has CGM and insulin pump and follows with endocrinology Last A1c 6.3 Pt has excellent disease control and her current neuropathic symptoms are unfortunately irreversible Opioid Induced Constipation Per pt and spouse alleviated with regimen of senokot-S 10 tablets daily and miralax as needed to supplement Discussed senokot-s is a preferred agent to assist with opioid induced constipation; discussed typical daily maximum is 8 tablets. D/w PharmD, pt not experiencing side effects from current regimen and it is effective, benefits of continuation outweigh risks Goals of care counseling discussion Held brief ACP planning discussion with patient and her spouse, confirmed full CODE STATUS Palliative Care Encounter - Pt seen in Palliative Care consultation along with pharmD for review of chronic opiate prescription exceeding 80 OME OARRS was reviewed and is supportive of the care plan. Controlled Substance Agreement Form completed in past 12 months: yes OARRS Report Review: Yes and No concerns identified Toxicology Screen: Concordant 09-01-22 The duration of opioid prescription is longer than 7 days because neccessary due to patient condition This patient requires opioid dosage greater than 30 oral morphine equivalents due to refractory diabetic polyneuropathy and symptoms could not be controlled with non-opioid alternatives alone or with lower doses of opiates. Planned duration of therapy: indefinite given severity of irreversible symptoms Attempts made to wean opiate therapy made: No- patient has uncontrolled pain and this is not indicated The patient has documented adherence with and response to current treatment plan and is progressing towards goals appropriately: Yes Patient being rotated to a new opioid regimen no. Patient was provided education regarding safe and proper storage of controlled substances including keeping out of reach of children. Education was provided regarding 3 options for disposal of left over medication including drug take back programs, flushing appropriate medications down the toilet or household disposal. The patient was offered a prescription for Naloxone due to an opiate dose exceeding 80 MED, or opiate prescribing in the setting of co-prescriptions of other potentially sedating agents including benzodiazepines, sedative hypnotics, carisoprodol, tramadol, or gabapentin Discussed the plan of care including addressing questions and concerns with pt and spouse Time spent 70 minutes in counseling andcoordination of care including exam and interview of patient, review of medical record including PCP and neurology notes, review of available labs/imaging, OARRS, UDS, documentation, collaboration with PCP and pharmD Subjective: MANOLO Elder presents for pain follow-up today. She is a 57-year-old female with past medical history of anxiety, carpal tunnel disease, chronic kidney disease, type 1 diabetes since age 13, diabetic polyneuropathy-severe, depression, opiate-induced constipation, history of urinary retention. She currently follows with Dr. Dover. She has been maintained on opiate therapy for many years, was previously maintained on a 50 mcg fentanyl patch for many years however had breakthrough uncontrolled pain symptoms with significant decline in her functional status. Her dose was recently increased to 62.5 mcg/h and this has significantly improved her quality of life. She has DM 1 since age 13 and long-standing history of neuropathy. On opioids over 20 years, goal of cutting back if able Plan was for implantation of spinal stimulator, 3 days prior insurance turned down. Working on appeal. Needs a letter stating benefits for lowering dose of opiates and improving QOL. Has necrobiosis of BL shins, areas of scarring, source of additional pain Has had EMG, MRI, neurology evaluation Quality of life is going well, is able to do the things she wants to do. She is able to ambulate at higher dose of 62.5 mcg of fentanyl, able to bend over. Was struggling to do that 2 months ago. Pain still limits ability to sleep- wakes up multiple times in middle of the night. Follows with Dr Mcmahan for endocrinology. PCP: Niecy Addison, DO Current Therapies: fentanyl 62.5 mcg/hr Current Symptom Management Medications:gabapentin Non-Opiate Adjuvants: Gabapentin, effexor; contraindicated to NSAIDs due to CKD and DM1 Non-Medication Treatments:history of epidural steroid injections Previous Medications Trialed:morphine in the past (issues with renal function), significant side effects with oxycodone, capscaicin, ice Referrals/Second Opinions if >50 MED: neurologist Current MME Prescribed: 150 Side Effects of Current Therapies: constipation-managed by [facility] stool softener-sounds like senna-s, takes 10 per day. Uses miralax if senna-s not working. Took lactulose for many years, and became tolerant to it. Sticking well, no skin rashes Are current therapies providing adequate analgesia? yes Is there improvement in functional status with current therapies? yes Current Disability Status: partially disabled Patient Pain Management Goal: Decrease in Pain Level and Decrease in Medication Dose Barriers to Goal: insurance Steps patient is taking towards goal: working for spinal cord stimulator trial Pain Assessment Description: dull, but intermittent sharp Duration: year(s) Cause of Pain:diabetic neuropathy, carpal tunnel, arthritis Frequency:daily- Location: feet, legs- usually one or the other- from the knee down; has pain in hands, history of carpal tunnel also contributing; shoulder pain, history of frozen shoulder BL Alleviating Factors: pain medication Exacerbating Factors: sometimes weather Effect:Interference with Activities, sleep Timing: varies from day to day how severe it is. Wakes from sleep at times. Current Pain Scale:4 Average Pain Scale over past week:4 Worst Pain Scale in Past Week:4- no pain crisis in the past month Red Flags for Abuse or Diversion:None Identified Goals of care: Live Longer Advance Directives: Full Code; have had conversations Surrogate: Spouse Spiritual assessment: No Unmet Needs Yarsanism Controlled Substances Monitoring: No flowsheet data found. Results/Verification of Data Review Most recent imaging/diagnostic work-up for area of body causing pain: reviewed MRIs in [facility] system, unable to see EMG results ROS: Review of Systems Past Medical History: Diagnosis Date Acute pyelonephritis 03/18/2021 Anxiety 05/11/2017 Bilateral carpal tunnel syndrome 05/11/2017 Chronic kidney disease due to type 1 diabetes mellitus (HCC) 05/11/2017 Chronic painful diabetic neuropathy (CMS/HCC) ([facility]) 05/11/2017 Diabetic polyneuropathy associated with type 1 diabetes mellitus (HCC) 05/11/2017 Dx at age 31 History of depression 05/11/2017 History of suicide attempt 05/11/2017 As 17 yo Insomnia 05/11/2017 Uncertain etiology at this time Retinal detachment 05/11/2017 Retinopathy due to secondary DM ([facility]) 05/11/2017 Slow transit constipation 05/11/2017 Likely 2/2 DM nueropathy per pt Type 1 diabetes mellitus with diabetic polyneuropathy (HCC) 05/11/2017 Dx 15 yo Urinary retention 05/11/2017 occ self caths prn Past Surgical History: Procedure Laterality Date ANKLE FRACTURE SURGERY Right 2001 with hardware CARPAL TUNNEL RELEASE 1996 1996 right; 2011 left SECTION, CLASSIC 1990, 1987 x2 COLPOSCOPY 1998 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 NEPHROSTOMY Left multiple times TUBAL LIGATION Bilateral URETER SURGERY age 4 Family History Problem Relation Name Age of Onset Mental illness Mother COPD Father Other ([id number]) Mother Asthma Father Cancer Paternal Grandmother unknown Breast cancer Mother 77.00 stage 1, hormone related Heart attack Sister 31.00 Heart disease Father stents Asthma Paternal Grandmother Allergies Allergen Reactions Oxycodone Anxiety and Other Severe insomnia Other reaction(s): Other (See Comments), Other (See Comments) Levofloxacin Other reaction(s): Other (See Comments), Other: See Comments insomnia insomnia Other reaction(s): anxious, Other (See Comments), Other: See Comments Diphenhydramine Other reaction(s): Agitation, Hyperactivity hyper Other reaction(s): Agitation, Other Iodinated Contrast Media Other reaction(s): Vomiting Metoclopramide Other Other reaction(s): Hyperactivity, Intolerance reglan hyper Other reaction(s): Intolerance, Other, Other (See Comments) Nitrofurantoin Other reaction(s): Intolerance macrobid Other reaction(s): Other (See Comments) Phenothiazines Other reaction(s): Hyperactivity, Intolerance compazine hyper Other reaction(s): Intolerance, Other Social history: Norman status: no Marital status: Living status:with spouse Substance Use History:Denies Past or Current Drug Use Occupation: not employed Current Psychosocial Stressors:none Does not drive Objective: Vitals: 12/14/22 0825 BP: (!) 171/92 BP Location: Left arm Patient Position: Sitting BP Cuff Size: Adult Pulse: 87 Temp: 36.2 C (97.2 F) TempSrc: Temporal Height: 5' 4.02 (1.626 m) Physical Exam Attending Exam: Appearance: no acute distress Eyes: clear conjunctiva, pupils normal size ENT: hearing normal, MMM without oral thrush, no erythema or exudate on hard or soft palate, tongue normal Neck: supple, no LAD, no thyromegaly Respiratory: breathing unlabored, lungs CTA B anteriorly without w/r/r Cardiovascular: heart RRR without m/g/r, pedal pulses palpable Gastrointestinal: abdomen soft, non-tender, non-distended, normoactive bowel sounds. Musculoskeletal: normal digits and nails without cyanosis or clubbing, normal muscle strength and tone, no edema of BL LE Skin: warm and dry, scars on BL shins from diabetic ulcers Neurologic: symmetric strength and sensation, CN II-XII intact grossly BL, no Myoclonus; significant R thenar wasting Psychiatric: alert and oriented to person/place/time, judgement and insight normal, memory intact, normal mood and range of affect documented in this encounter [facility] 12-14-2022 History of Present illness Narrative Last does of pain medication 12/11/2022 at 8:30pm Images from the original note were not included. [facility] Palliative Care Location: [facility] Opiate Therapy Patient Encounter Chief Complaint: Jael Benson is a 57 y.o. female with chief complaint of chronic pain, long-term opiate use, continuous Assessment/Plan Diabetic Polyneuropathy Chronic Pain - recommend continue fentanyl 62.5 mcg/hr patch, patient is achieving symptomatic relief and has had improvement in her functional status and ability to perform ADLs -pt has not tolerated morphine or oxycodone, is not at high risk for fever and increased drug uptake, has subcutaneous tissue for medication to depot. Frequently sweats but with application of medical tape fentanyl patches stay on. Denies drug rash as long as she has version of drug carried by [facility] Request for refill and need for prior auth forwarded to PCP - pt working to get insurance approval for spinal cord stimulator to alleviate some of her symptoms - physician letter needed for appeal, stating that spinal cord stimulator has the potential to assist with alleviating symptoms of polyneuropathy which are severe and could lower her opioid requirements and improve her quality of life. Patient has refractory symptoms which are not alleviated with typical medication modalities. -reviewed OP notes from Gavin Cruz at [facility]- he attempted [id number], reviewed with [facility] that [facility] has FDA approval for diabetic polyneuropathy - constipation is main opioid adverse effect patient is experiencing at this time -continue adjuvant agents including gabapentin, effexor -pt has also tried epidural steroid injections and physical therapy in the past without relief of symptoms DM 1 Pt has CGM and insulin pump and follows with endocrinology Last A1c 6.3 Pt has excellent disease control and her current neuropathic symptoms are unfortunately irreversible Opioid Induced Constipation Per pt and spouse alleviated with regimen of senokot-S 10 tablets daily and miralax as needed to supplement Discussed senokot-s is a preferred agent to assist with opioid induced constipation; discussed typical daily maximum is 8 tablets. D/w PharmD, pt not experiencing side effects from current regimen and it is effective, benefits of continuation outweigh risks Goals of care counseling discussion Held brief ACP planning discussion with patient and her spouse, confirmed full CODE STATUS Palliative Care Encounter - Pt seen in Palliative Care consultation along with pharmD for review of chronic opiate prescription exceeding 80 OME OARRS was reviewed and is supportive of the care plan. Controlled Substance Agreement Form completed in past 12 months: yes OARRS Report Review: Yes and No concerns identified Toxicology Screen: Concordant 09-01-22 The duration of opioid prescription is longer than 7 days because neccessary due to patient condition This patient requires opioid dosage greater than 30 oral morphine equivalents due to refractory diabetic polyneuropathy and symptoms could not be controlled with non-opioid alternatives alone or with lower doses of opiates. Planned duration of therapy: indefinite given severity of irreversible symptoms Attempts made to wean opiate therapy made: No- patient has uncontrolled pain and this is not indicated The patient has documented adherence with and response to current treatment plan and is progressing towards goals appropriately: Yes Patient being rotated to a new opioid regimen no. Patient was provided education regarding safe and proper storage of controlled substances including keeping out of reach of children. Education was provided regarding 3 options for disposal of left over medication including drug take back programs, flushing appropriate medications down the toilet or household disposal. The patient was offered a prescription for Naloxone due to an opiate dose exceeding 80 MED, or opiate prescribing in the setting of co-prescriptions of other potentially sedating agents including benzodiazepines, sedative hypnotics, carisoprodol, tramadol, or gabapentin Discussed the plan of care including addressing questions and concerns with pt and spouse Time spent 70 minutes in counseling andcoordination of care including exam and interview of patient, review of medical record including PCP and neurology notes, review of available labs/imaging, OARRS, UDS, documentation, collaboration with PCP and pharmD Subjective: MANOLO Elder presents for pain follow-up today. She is a 57-year-old female with past medical history of anxiety, carpal tunnel disease, chronic kidney disease, type 1 diabetes since age 13, diabetic polyneuropathy-severe, depression, opiate-induced constipation, history of urinary retention. She currently follows with Dr. Dover. She has been maintained on opiate therapy for many years, was previously maintained on a 50 mcg fentanyl patch for many years however had breakthrough uncontrolled pain symptoms with significant decline in her functional status. Her dose was recently increased to 62.5 mcg/h and this has significantly improved her quality of life. She has DM 1 since age 13 and long-standing history of neuropathy. On opioids over 20 years, goal of cutting back if able Plan was for implantation of spinal stimulator, 3 days prior insurance turned down. Working on appeal. Needs a letter stating benefits for lowering dose of opiates and improving QOL. Has necrobiosis of BL shins, areas of scarring, source of additional pain Has had EMG, MRI, neurology evaluation Quality of life is going well, is able to do the things she wants to do. She is able to ambulate at higher dose of 62.5 mcg of fentanyl, able to bend over. Was struggling to do that 2 months ago. Pain still limits ability to sleep- wakes up multiple times in middle of the night. Follows with Dr Mcmahan for endocrinology. PCP: Niecy Addison, DO Current Therapies: fentanyl 62.5 mcg/hr Current Symptom Management Medications:gabapentin Non-Opiate Adjuvants: Gabapentin, effexor; contraindicated to NSAIDs due to CKD and DM1 Non-Medication Treatments:history of epidural steroid injections Previous Medications Trialed:morphine in the past (issues with renal function), significant side effects with oxycodone, capscaicin, ice Referrals/Second Opinions if >50 MED: neurologist Current MME Prescribed: 150 Side Effects of Current Therapies: constipation-managed by [facility] stool softener-sounds like senna-s, takes 10 per day. Uses miralax if senna-s not working. Took lactulose for many years, and became tolerant to it. Sticking well, no skin rashes Are current therapies providing adequate analgesia? yes Is there improvement in functional status with current therapies? yes Current Disability Status: partially disabled Patient Pain Management Goal: Decrease in Pain Level and Decrease in Medication Dose Barriers to Goal: insurance Steps patient is taking towards goal: working for spinal cord stimulator trial Pain Assessment Description: dull, but intermittent sharp Duration: year(s) Cause of Pain:diabetic neuropathy, carpal tunnel, arthritis Frequency:daily- Location: feet, legs- usually one or the other- from the knee down; has pain in hands, history of carpal tunnel also contributing; shoulder pain, history of frozen shoulder BL Alleviating Factors: pain medication Exacerbating Factors: sometimes weather Effect:Interference with Activities, sleep Timing: varies from day to day how severe it is. Wakes from sleep at times. Current Pain Scale:4 Average Pain Scale over past week:4 Worst Pain Scale in Past Week:4- no pain crisis in the past month Red Flags for Abuse or Diversion:None Identified Goals of care: Live Longer Advance Directives: Full Code; have had conversations Surrogate: Spouse Spiritual assessment: No Unmet Needs Yarsanism Controlled Substances Monitoring: No flowsheet data found. Results/Verification of Data Review Most recent imaging/diagnostic work-up for area of body causing pain: reviewed MRIs in [facility] system, unable to see EMG results ROS: Review of Systems Past Medical History: Diagnosis Date Acute pyelonephritis 03/18/2021 Anxiety 05/11/2017 Bilateral carpal tunnel syndrome 05/11/2017 Chronic kidney disease due to type 1 diabetes mellitus (HCC) 05/11/2017 Chronic painful diabetic neuropathy (CMS/HCC) ([facility]) 05/11/2017 Diabetic polyneuropathy associated with type 1 diabetes mellitus (HCC) 05/11/2017 Dx at age 31 History of depression 05/11/2017 History of suicide attempt 05/11/2017 As 17 yo Insomnia 05/11/2017 Uncertain etiology at this time Retinal detachment 05/11/2017 Retinopathy due to secondary DM (HCC) 05/11/2017 Slow transit constipation 05/11/2017 Likely 2/2 DM nueropathy per pt Type 1 diabetes mellitus with diabetic polyneuropathy (HCC) 05/11/2017 Dx 15 yo Urinary retention 05/11/2017 occ self caths prn Past Surgical History: Procedure Laterality Date ANKLE FRACTURE SURGERY Right 2001 with hardware CARPAL TUNNEL RELEASE 1995 1995 right; 2011 left SECTION, CLASSIC 1990, 1988 x2 COLPOSCOPY 1998 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 NEPHROSTOMY Left multiple times TUBAL LIGATION Bilateral URETER SURGERY age 4 Family History Problem Relation Name Age of Onset Mental illness Mother COPD Father Other ([id number]) Mother Asthma Father Cancer Paternal Grandmother unknown Breast cancer Mother 77.00 stage 1, hormone related Heart attack Sister 31.00 Heart disease Father stents Asthma Paternal Grandmother Allergies Allergen Reactions Oxycodone Anxiety and Other Severe insomnia Other reaction(s): Other (See Comments), Other (See Comments) Levofloxacin Other reaction(s): Other (See Comments), Other: See Comments insomnia insomnia Other reaction(s): anxious, Other (See Comments), Other: See Comments Diphenhydramine Other reaction(s): Agitation, Hyperactivity hyper Other reaction(s): Agitation, Other Iodinated Contrast Media Other reaction(s): Vomiting Metoclopramide Other Other reaction(s): Hyperactivity, Intolerance reglan hyper Other reaction(s): Intolerance, Other, Other (See Comments) Nitrofurantoin Other reaction(s): Intolerance macrobid Other reaction(s): Other (See Comments) Phenothiazines Other reaction(s): Hyperactivity, Intolerance compazine hyper Other reaction(s): Intolerance, Other Social history: Norman status: no Marital status: Living status:with spouse Substance Use History:Denies Past or Current Drug Use Occupation: not employed Current Psychosocial Stressors:none Does not drive Objective: Vitals: 12/14/22 0825 BP: (!) 171/92 BP Location: Left arm Patient Position: Sitting BP Cuff Size: Adult Pulse: 87 Temp: 36.2 C (97.2 F) TempSrc: Temporal Height: 5' 4.02 (1.626 m) Physical Exam Attending Exam: Appearance: no acute distress Eyes: clear conjunctiva, pupils normal size ENT: hearing normal, MMM without oral thrush, no erythema or exudate on hard or soft palate, tongue normal Neck: supple, no LAD, no thyromegaly Respiratory: breathing unlabored, lungs CTA B anteriorly without w/r/r Cardiovascular: heart RRR without m/g/r, pedal pulses palpable Gastrointestinal: abdomen soft, non-tender, non-distended, normoactive bowel sounds. Musculoskeletal: normal digits and nails without cyanosis or clubbing, normal muscle strength and tone, no edema of BL LE Skin: warm and dry, scars on BL shins from diabetic ulcers Neurologic: symmetric strength and sensation, CN II-XII intact grossly BL, no Myoclonus; significant R thenar wasting Psychiatric: alert and oriented to person/place/time, judgement and insight normal, memory intact, normal mood and range of affect documented in this encounter [facility] 12-14-2022 Miscellaneous Notes Urine drug screen is concordant documented in this encounter [facility] 12-14-2022 Progress note Formatting of t his note might be different from the original. Urine drug screen is concordant [facility] 12-13-2022 Telephone encounter Note Called and spoke with pharmacist from [email or web address] in [place], the pharmacist verbalized that she will send a prior authorization to the patients provider to fill out. [facility] 12-13-2022 Miscellaneous Notes Called and spoke with pharmacist from [facility] in [place], the pharmacist verbalized that she will send a prior authorization to the patients provider to fill out. I have not gotten any paperwork for a PA nor did I fill out one in the last month. Please call pharmacy and/or obtain in faxes if there Name of caller: Jael Contact phone number: [phone] Relationship to Patient: spouse/SO Provider: Dr. Addison Practice: [facility] [place] Chief Complaint/Reason for Call: Prior Auth is not being filled out correctly for the fentaNYL ([employer]) 62.5 MCG/HR [employer] will be sending over another PA today. Please call the when it is done. Thank you Best time of day caller can be reached: Patient advised that office/PCP has 24-48 business hours to return their call: any documented in this encounter [facility] 12-13-2022 Telephone encounter Note I have not gotten any paperwork for a PA nor did I fill out one in the last month. Please call pharmacy and/or obtain in faxes if there [facility] 12-12-2022 Telephone encounter Note Name of caller: Jael Contact phone number: [phone] Relationship to Patient: spouse/SO Provider: Dr. Addison Practice: [facility] [place] Chief Complaint/Reason for Call: Prior Auth is not being filled out correctly for the fentaNYL (Duragesic) 62.5 MCG/HR express will be sending over another PA today. Please call the when it is done. Thank you Best time of day caller can be reached: Patient advised that office/PCP has 24-48 business hours to return their call: any [facility] 11-15-2022 Miscellaneous Notes Called pt, notified her that her insurance denied her SCS trial. We will postpone the procedure. She would like us to appeal on her behalf. Gavin rCuz PA-C documented in this encounter [facility] 11-15-2022 Miscellaneous Notes [id number] call completed with [facility] regarding denial for SCS trial. He is aware that there is FDA approval for SCS for treatment of diabetic neuropathy. He states their policy still considers it investigational and lacking evidence. He did not overturn the denial. He provided fax number [phone] for an appeal. He recommended that we provide a summary of our impression of the effectiveness of this treatment in our practice and how our patients are doing with it. He understands that we are not conducting a study. Gavin Cruz PA-C documented in this encounter [facility] 11-14-2022 Miscellaneous Notes Call to Jael with no answer. Detailed message left explaining need for repeat CBC due to elevated WBC. Call back number provided. Alban Batres PA-C documented in this encounter [facility] 11-10-2022 Miscellaneous Notes Call to patient to inform her that her blood sugar was low on her blood test this morning. Called to make sure patient had something to eat since the blood test. Pt states she has eaten and thanks RN for the call. Bailey Felix BSN, RN, CMSRN PACC Resource nurse documented in this encounter [facility] 11-10-2022 History of Present illness Narrative Chief Complaint: Diabetic neuropathy History of Present Illness: Jael Benson is a 7 year old female who presents to the clinic today for preoperative testing prior to upcoming SCS trial. Jael was diagnosed with DM 44 years ago and began to experience neuropathy in her 30's. She states her neuropathy is everywhere but her pain is the worse in the bilateral hands, legs and feet. Her typical pain is 6-8/10 and made worse with any movement. She does have localized lower back pain without radiation. I obtained the history and reviewed the information dictated to Nash Shultz RN for accuracy. I have edited the note and agree with the final text. Objective: LMP (LMP Unknown) General Appearance: no apparent distress, well-developed Neurological: Cognitive: Awake and oriented x3. Cranial nerves: PERRL, EOMI, face symmetric Motor: Moves all extremities bilaterally 5/5, normal muscle tone and bulk Sensation: Intact to light touch with numbness in distal LE. Diagnostic testing MRI T/Lspine: Lower lumbar spondylosis as described. No high-grade spinal canal or foraminal stenoses. Mild spinal canal stenosis L3-L4. Mild bilateral foraminal stenoses L3-L4 and L4-L5. Details above. MRI Cspine: No significant cervical disc herniation, spinal stenosis, or foraminal compromise. No abnormal cord signal. Assessment/Plan: Jael Benson is a 57 year old female with a long history of DM and diabetic neuropathy. She has bothersome neuropathy in her lower extremties equally that can reach 6-8/10 and is exacerbated by movement. The pain has proven refractory to medication and less invasive modalities. A SCS trial is a reasonable next step. Risks, benefits, and alternatives of Nevro percutaneous thoracic spinal cord stimulator were discussed, including bleeding, infection, and the need to abort if the electrodes are not able to be threaded to the right location or if there is CSF puncture. It was explained that with therapy, 50% of patients had 50% or more pain relief. Surgery will be performed awake with sedation. Will plan on entry at T12-L1 There is a risk that stimulation may be different or not cover the intended targets. They verbalized understanding and would like to proceed with surgery. Of note, she will need a scopolamine patch. She would also like pain management referral. Furthermore, if she goes for a permanent implant, she would like a left subcostal IPG because her insulin pump is on the right. [facility] STAFF PHYSICIAN NOTE OF PERSONAL INVOLVEMENT IN CARE I have reviewed the Clinic Note obtained and documented by the RN/LAWANDA and I personally participated in the chowdhury components. I have discussed the case and management of the patient's care. I spent 30 minutes in the visit, with more than 50% of the total [id number] time of the visit in counseling / coordination of care. SIGNATURE: Sharan Mendoza MD DATE of SERVICE: November 10, 2022 documented in this encounter [facility] 11-10-2022 History and physical note Images from the original note were not included. HISTORY AND PHYSICAL EXAMINATION SERVICE DATE: 10/31/2022 SERVICE TIME: 8:32 AM PRIMARY CARE PHYSICIAN: Niecy Addison MD REASON FOR VISIT: Jael Benson is a 57 year old female who is scheduled for PERCUTANEOUS IMPLANT LEAD NEUROSTIM EPIDURAL TRIAL at the request of Dr. Sharan Mendoza for consultation. My final recommendation will be communicated back to the requesting physician by way of shared medical record or letter. The patient has the following: ACTIVE PROBLEM LIST Allergic Rhinitis, Cause Unspecified Uncontrolled Type 1 Diabetes Mellitus With Ophthalmic Complication Pain in Joint, Shoulder Region Other and Unspecified Adverse Effect of Drug, Medicinal and Biological Substance Urinary Obstruction Asa Class II Abdominal Pain, Other Specified Site Other Ureteric Obstruction Unspecified Hearing Loss Esophageal Reflux Trigger Finger (Acquired) Depressive Disorder, Not Elsewhere Classified Kidney Disease Type 1 Diabetes Mellitus With Neurological Manifestations (Hcc) Fissure in Skin of Foot Polyneuropathy in Diabetes(357.2) Carpal Tunnel Syndrome On Both Sides Carpal Tunnel Syndrome, Left Carpal Tunnel Syndrome, Right Hyperlipidemia Ckd (Chronic Kidney Disease) Subjective CHIEF COMPLAINT: diabetic peripheral neuropathy HPI: 57 year old female scheduled for PERCUTANEOUS IMPLANT LEAD NEUROSTIM EPIDURAL TRIAL on 11/18/2022. Patient has diabetic peripheral neuropathy. She is complaining of pain in her back, legs, feet, and hands. She is scheduled for a trial for SCS. Denies any fever, chills, nausea, vomiting, chest pain, abdominal pain, SOB. 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) PAST SURGICAL HISTORY Procedure Laterality Date , CLASSIC, ANTE/POST CA 02/27/88, 06/03/91 x2 COLPOSCOPY CERVIX UPPER/ADJACENT VAGINA 1999 LEEP LAPAROSCOPY DIAGNOSTIC for fertility NEUROPLASTY &/TRANSPOS MEDIAN NRV CARPAL TUNNE 04-26-13 Carpal tunnel decomp, left PAST SURGICAL HISTORY OF 2002 Left ureter obstruction/stent scope PAST SURGICAL HISTORY OF 06-26-2001 Rt ankle fx repair with plates/screws PAST SURGICAL HISTORY OF right CTR PAST SURGICAL HISTORY OF 2007 left eye enucleation d/t pain FAMILY HISTORY Problem Relation Age of Onset Diabetes Son Heart Father colon polyps Heart Sister other (spinal stenosis [Other]) Father SOCIAL HISTORY: Social History Tobacco Use Smoking status: Former Packs/day: 1.00 Years: 8.00 Pack years: 8.00 Types: Cigarettes Quit date: 08/28/1986 Years since quittin.1 Smokeless tobacco: Never Vaping Use Vaping Use: Never used Substance Use Topics Alcohol use: No Drug use: No Prior to Admission medications as of 08/25/22 1716 Medication Sig Last Dose Taking ondansetron HCl (ZOFRAN ORAL) Take by mouth. ciprofloxacin HCl (CIPRO ORAL) Take by mouth. aspirin-calcium carbonate 81 mg-300 mg calcium(777 mg) tab Take 81 mg by mouth. venlafaxine ER (EFFEXOR XR) 150 mg 24 hr capsule TAKE 1 CAPSULE DAILY IN THE MORNING venlafaxine (EFFEXOR) 75 mg tablet TAKE 1 TABLET DAILY AT BEDTIME temazepam (RESTORIL) 15 mg cap Take by mouth at bedtime as needed. 1-2 tablets in the pm medroxyPROGESTERone (PROVERA, CYCRIN) 2.5 mg tablet Take 2.5 mg by mouth once daily. Estradiol (ESTRACE) 0.5 mg tablet Take 0.5 mg by mouth once daily. fentaNYL (DURAGESIC) 50 mcg/hr meclizine (ANTIVERT) 25 mg tab Take 25 mg by mouth twice daily as needed. insulin lispro (HUMALOG) 100 unit/mL injection Inject SQ as directed in insulin pump up to 100 units daily insulin lispro (HUMALOG) 100 unit/mL injection Inject SQ as directed in insulin pump up to 100 units daily scopolamine 1.5 mg Apply as directed. use every 72 hours as directed Multivitamin capsule Take 1 capsule by mouth once daily. gabapentin (NEURONTIN) 800 mg tablet Take 1 tablet by mouth four times daily. glucagon, human recombinant, (GLUCAGON EMERGENCY) 1 mg injection 1 mg as directed. INJECT FOR INSULIN SHOCK losartan (COZAAR) 50 mg ORAL tablet Take 1 tablet by mouth once daily. lovastatin 10 mg ORAL tablet Take 1 tablet by mouth daily with dinner. Infusion Set for Insulin Pump (JUSTUS INFUSION SET) Misc ISet MMT 923 changes site every 3 days Insulin Pump Syringe (PARADIGM RESERVOIR) 1.8 mL Misc Misc MMT 326A changes site every 3 days Catheter 14-16 Fr- Misc Misc use as directed four times a day Patient not taking: Reported on 08/25/2022 Medication Comments documented by Jessica Lawrence Rn on 12/28/2012 at 1002. ID # [id number] optum [id number] ALLERGIES Allergen Reactions Levofloxacin Other: See Comments insomnia Antihistamines Intolerance (benadryl) Make her hyper Metoclopramide Intolerance reglan Nitrofuran Analogues Intolerance macrobid Phenothiazines Intolerance compazine COVID VACCINATION STATUS: Fully vaccinated REVIEW OF SYSTEMS: PAIN ASSESSMENT: General: No weight loss, malaise or fevers. Neuro: No history of TIA's, stroke, FRAME WIRER tumor, impaired sensorium, hemiplegia, paraplegia or quadraplegia. No neurological symptoms or problems. Respiratory: Negative for Bronchitis, COPD, Current cough, Dyspnea, Pneumonia within 6 weeks (date), Tobacco Use, URI < 2 weeks Cardiovascular: Negative for Recent [place], Angina, Arrhythmia, CAD, Chest Pain, CHF, PVD, Valvular Heart Disease, DVT/PE+HLD, +HTN GI: No history of GI symptoms or problems. No history of esophageal varices, recent ascites, or ETOH greater than 2 drinks per day. 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 : Denies, No LMP recorded (lmp unknown). Endocrine: no thyroid disease, no oral steroids in the last 30 days +DM 1-last A1c 6.3 FBS 110-150s Hematology: No history of bleeding or clotting disorder. Pt is not taking anti-coagulation or platelet medications. No history of hematological symptoms or problems. Oncology: No history of CA metastasis, chemo within 30 days, or radiotherapy within 90 days. Has not lost 10% of body wt in 6 months. No history of oncological symptoms or problems. Psych: Depression Musculoskeletal: Negative for joint pain or swelling, back pain or muscle pain. Skin: Negative for lesions, rash and itching. Objective PHYSICAL EXAM: VITALS: BP 150/73 Pulse 84 Temp (Src) 96 (Temporal) Ht 5' 3 (1.60m) Wt 184 lb 12.8 oz (83.8kg) SpO2 100% BMI 32.74 kg/(m^2). General: Alert and oriented, No acute distress Skin: Normal color, no rash, no lesions. HEENT: EOM, pupils equal, round and reactive., No carotid bruits Cardiovascular: Normal S1 & S2, no rubs, murmurs or gallops. No JVD. Pulse regular. Lungs: Normal breath sounds, no wheezes or crackles. Extremities: No deformity, no edema or tenderness, no joint swelling or clubbing. Neurological: Normal cognition and motor skills. Gait normal. No weakness or sensory deficit. Pulses: Radial pulses normal +2. Diagnostic tests reviewed for today's visit: Lab Value Units Date High Low HB No results within date range. HCT No results within date range. WBC No results within date range. PLT No results within date range. NA No results within date range. K No results within date range. GLUC No results within date range. BUN No results within date range. CREAT No results within date range. PTSEC No results within date range. INR No results within date range. APTT No results within date range. ALT No results within date range. AST No results within date range. TBILI No results within date range. TSH No results within date range. Lab Value Units Date High Low HCGQT No results within date range. UHCG No results within date range. HCG, BODY* No results within date range. Lab Value Units Date High Low ABORHD No results within date range. ABSCREEN No results within date range. 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 ASA Class: 3 ANESTHESIA FINDINGS: Intubation History: No history of difficult intubation Significant Anesthesia Considerations: Postop nausea/vomiting and slow emergence Very severe, has had to be admitted for outpatient procedures because she is unable to stop vomiting. (Pt has allergy to Reglan) Airway Exam: General: Normal appearance Mallampati Score is CLASS I ULBT: Unable to perform Neck: Normal appearance and function, Distance from hyoid to mentum during neck extension is at least 3 finger breaths Mouth: Normal tongue size and Mouth opening greater than 2 finger breaths Dentition: Bridge, missing teeth Airway History: No abnormal airway history STOP BANG Score: Criteria: Hypertension Age over 50 (57 year old) Score = 2 PLAN This patient is optimally prepared for surgery pending LABS and EKG. CONSULTS: Patient does not require consults for optimization at this time. The Following Tests/Procedures Have Been Initiated: Orders Placed This Encounter HGB A1C Standing Status: Future Standing Expiration Date: 01/10/2023 atorvastatin (LIPITOR) 40 mg tablet Sig: Take 40 mg by mouth once daily. CBC, BMP, PT, aPTT, and EKG per surgical service. Planned Anesthetic: Per anesthesia choice Instructions Given to Patient: Instructions located in the after visit summary. Patient given verbal and written preop instructions and voices comprehension and compliance. SIGNATURE: Lida Mir PA-C PATIENT NAME: Jael Benson DATE: November 10, 2022 TIME: 8:52 AM documented in this encounter [facility] 11-10-2022 Instructions Lida Mir PA-C - 11/10/2022 8:38 AM EDT PATIENT PREOPERATIVE INSTRUCTIONS Sharan Mendoza MD has scheduled you for your procedure at this surgery center: [facility] [place] [facility] Scheduling Office: [phone] --[address] [place] [address]. Please read below carefully for your personalized instructions. Dietary Restrictions: - No solid food after midnight. - You may have 12 ounces of clear liquids (water, clear juices such as apple juice or gatorade, carbonated beverages, clear tea, black coffee, jello) until 2 hours before scheduled arrival at facility. Medications: Unless instructed differently below, stay on all of your medications until your surgery. Approved medications to take the morning of surgery with a sip of water: gabapentin, Effexor Do not take the losartan the night before or the morning of surgery - Insulin pump: continue the same basal rate. If you start any new medications after today's visit, please contact the surgeon's office. Blood Thinning Medications: - Stop NSAIDS (Ibuprofen, Advil, Aleve, Motrin, Celebrex, Mobic, etc.) 7 days before surgery, as directed by your surgeon. - Stop Aspirin 7 days before surgery, as directed by your surgeon. - Stop Vitamin E, ALL multi-vitamins, herbals and dietary supplements 7 days before surgery. - You may take Tylenol (Acetaminophen) or any of your pain medications that do not contain aspirin or NSAIDS as needed. Important Reminders: - Candy, mints, and tobacco products are NOT permitted the morning of surgery. - Hearing aids, dentures and glasses may be worn the morning of surgery. - NO jewelry, body piercings, makeup, hairpins or contacts are to be worn the day of surgery. If you develop symptoms such as a fever, cold, or flu, or have other changes to your health within TWO DAYS of scheduled surgery or the morning of surgery, please contact the surgery center above. Personal Belongings: -Please have photo ID and insurance cards. -If you do not have a copy of advance directives on file with us, please bring a copy with you on the day of surgery. - Leave ALL valuables and money at home or with family members. For Outpatient Procedures: - YOU MUST HAVE A RESPONSIBLE INDUSTRIAL TECHNOLOGY EDUCATION TEACHER TAKE YOU HOME. A CITY SOLICITOR OR REGISTERED NURSE FETAL CANNOT BE MADE A RESPONSIBLE INDUSTRIAL TECHNOLOGY EDUCATION TEACHER. - We recommend that a responsible person stays with you overnight to take care of you. - You cannot stay in a hotel alone after outpatient surgery. You will not be permitted to have your surgery, if you do not have someone to take care of you. Arrival Time for Surgery: - To obtain your arrival time for surgery, call your physician's office the day before your surgery. - If your surgery is scheduled for Monday, call the Monday before. Your surgeon s supervisor statement clerks will tell you what time to call the office. - If you have not reached the departmental supervisor statement clerks by 5 P.M., call [phone] after 5 P.M. the day before your surgery. Please be aware that emergency situations arise, which may delay or change your surgical time. If this happens, we will notify you as soon as possible and regret any inconvenience. If you already have an Advance Directive, please fax a copy to [phone] or email to for it to be added to your chart. If you do not have an Advance Directive, you can find the appropriate form and more information at [email or web address]. We recommend that you complete the Advance Directive form found on the website and bring it with you the day of your surgery. It can be witnessed and scanned into your chart that day. Lida Mir PA-C documented in this encounter [facility] 11-08-2022 Telephone encounter Note Medication(s) refilled: Requested Prescriptions Signed Prescriptions Disp Refills losartan (Cozaar) 50 MG tablet 90 tablet 1 Sig: Take 1 tablet (50 mg) by mouth daily. Authorizing Provider: NIECY ADDISON DO 11/08/2022 10:28 AM [facility] 11-08-2022 Miscellaneous Notes Medication(s) refilled: Requested Prescriptions Signed Prescriptions Disp Refills losartan (Cozaar) 50 MG tablet 90 tablet 1 Sig: Take 1 tablet (50 mg) by mouth daily. Authorizing Provider: NIECY ADDISON DO 11/08/2022 10:28 AM documented in this encounter [facility] 10-31-2022 Miscellaneous Notes Call to Jael Riley missed pre op today due to being ill. We will reschedule for 3/16. All questions answered. Alban Batres PA-C Jael (pt's spouse) returned Alban Batres's call - [phone]. documented in this encounter [facility] 10-31-2022 Miscellaneous Notes Patient was scheduled for in person [facility] appt at 7:20 today. Patient did not check in for appt, called patient at 7:30 to see if they were planning on coming. Patient did not answer, will need to be rescheduled. Surgeon s office was notified of missed appointment. documented in this encounter [facility] 10-06-2022 Miscellaneous Notes Spoke with patient's . Advised him that I had spoken with Dr. Mendoza and he reviewed her chart and is okay to proceed. He denies any noted recent bladder infections and understands that we will test prior to surgery and may require intervention if positive. Additionally, they would like to hold off on carpal tunnel fwork-up until after the stimulator placement has been evaluated. Will plan for preoperative testing to take place on 10/31/22 and surgery on 11/18/22. Trial will conclude on 11/25/22. Reviewed surgical process and answered all questions. Nash Shultz, RN Spouse called stating patient consulted with on 09/22 and is calling today asking what would be her next steps. Jael documented in this encounter [facility] 09-22-2022 Evaluation + Plan note Associated Problem(s): Chronic painful diabetic neuropathy (CMS/HCC) (HCC) Controlled After addressing medication(s) compliance, adverse effects, and efficacy of treatment(s), medications for this controlled chronic condition will be continued. Will try to simply regimen for now with 62.5 mcg patch Agreeable to see Palliative at [facility] in November - would be due for UDS and refills at that time (PCP to facilitate) Will be following up with pain management [facility] for implant - time of procedure still TBD [facility] 09-22-2022 Miscellaneous Notes Associated Problem(s): Chronic painful diabetic neuropathy (CMS/HCC) (HCC) Controlled After addressing medication(s) compliance, adverse effects, and efficacy of treatment(s), medications for this controlled chronic condition will be continued. Will try to simply regimen for now with 62.5 mcg patch Agreeable to see Palliative at [facility] in November - would be due for UDS and refills at that time (PCP to facilitate) Will be following up with pain management [facility] for implant - time of procedure still TBD documented in this encounter [facility] 09-22-2022 History of Present illness Narrative Images from the original note were not included. Prechart note: (the following data was documented before the visit began) Rooming: Possible agenda: Provider notes: due for duragesic 50 mcg Added 12.5 mg patch 09/01/22 [facility] Multidisciplinary team needs: Health Maintenance to be addressed today: Health Maintenance Due Topic TSH Level Vitamin B-12 Diabetes: Celiac Disease Screening HIV Screening Colorectal Cancer Screening MMR Vaccines (1 of 1 - Standard series) Diabetes: Foot Exam Diabetes: Retinopathy Screening Diabetes: Dental Exam Hepatitis C Screening Mammogram Diabetes: Hemoglobin A1C Hepatitis B Vaccines (2 of 3 - 3-dose series) Lipid Panel COVID-19 Vaccine (4 - Booster for Moderna series) (end precharting)- [facility] [address] [facility] [id number] Dept: [phone] Dept Loc: [phone] Subjective Patient was seen today via Telehealth by agreement and consent in light of the current COVID-19 pandemic. I used the following Telehealth technology: Audio and video capabilities Patient location: Home. This patient encounter is appropriate and reasonable under the circumstances given the patient's particular presentation at this time. The patient has been advised of the potential risks and limitations of this mode of treatment (including but not limited to the absence of in-person examination) and has agreed to be treated in a remote fashion in spite of them. Any and all of the patient's/patient's family's questions on this issue have been answered and I have made no promises or guarantees to the patient. The patient has also been advised to contact this office for worsening conditions or problems, and seek emergency medical treatment and/or call 911 if the patient deems either necessary. The patient stated that they are currently in the [facility]. If the patient is a minor, permission has been obtained by the parent or guardian for the patient to receive medical care at this visit. Jael Benson is a 57 y.o. who presents for a telehealth visit. Chief complaint: Chief Complaint Patient presents with Medication Check LTOT HPI Patient presents for med check up Started using 50 mcg duragesic and 12 mcg duragesic at the same time soon after last appointment Put last patch of 50 mcg on yesterday Has 3 left of 12 mcg patch No side effects Has noticed some increase number of charley horses in the middle of night - getting up about 3 times Not very bothersome Has been walking more - going for walk today with Pain down from 6 to 1 or 2 with addition of 12 mcg patch Just came back from pain psychologist Still planning on getting implant whenever that is approved Wants to decrease patch dosage eventually if implant works well Controlled Substances Monitoring: No flowsheet data found. OARRs Reviewed., Possible medication effects, risk of tolerance/dependence & alternative treatments discussed. , No signs of potential drug abuse or diversion identified., and Assessed functional status. [facility] PAIN MANAGEMENT DRUG PANEL Date Value Ref Range Status 03/16/2022 NEGATIVE NA Final No results found for: TRAMADOLUR Last pain management panel concordant: Yes Rationale for use of opioid: To treat moderate or severe pain and functional impairment caused by diagnosis of diabetic neuropathy Patient did not receive adequate pain control/function with 2 non-opioid treatments including: acetaminophen, ibuprofen, naproxen, adjuvant anticonvulsants, and adjuvantantidepressants at maximum tolerated doses Specialist referral and recommendation: Neurologist Opioid prescribed to treat non-cancer/non-malignant pain outside of active cancer treatment, palliative care, end of life/hospice care, sickle cell, severe burn, traumatic crushing of tissue, amputation, major orthopedic surgery. This short-acting opioid is prescribed after confirmation of the following; This patient is not opioid-naive.This patient has received opioid medications for at least 7 days prior to this prescription. An opioid agreement is recorded in the electronic record and confirms discussion of the benefits and risks of opioid therapy. RED FLAGS: Forging or altering a prescription: No Using another person's pain or scheduled medication: No Illegal drugs, including THC, in PNM: No Controlled drugs not prescribed by this office in PNM: No Intoxication: No Overdose: No Legal problems related to controlled substances: No Behavior that threatens staff or physician: No Accident motor vehicle crash: No PAIN ROS How is the pain medication helping your function: much improved: ambulation Are you having any sleepiness: No Are you having any constipation: No Are you having any mental slowing: No Are you having any sexual dysfunction: No PEG 1 (pain on average in the past week with medications): 2 PEG 2 (pain interference with enjoyment of life): 2 PEG 3 (pain interference with normal activity): 2 SELF MANAGEMENT: The patient is interested in this area of self management: Meaningful life activities (familly, household responsibilities, work) Allergies Allergen Reactions Oxycodone Anxiety and Other Severe insomnia Levofloxacin Other reaction(s): Other (See Comments), Other: See Comments insomnia insomnia Diphenhydramine Other reaction(s): Agitation, Hyperactivity hyper Macrobid [Nitrofurantoin] Other reaction(s): Intolerance macrobid Metoclopramide Other Other reaction(s): Hyperactivity, Intolerance reglan hyper Phenothiazines Other reaction(s): Hyperactivity, Intolerance compazine hyper Review of Systems [] Problem list and/or medical history reviewed/updated as appropriate [] Medication list reviewed/updated [] Allergies reviewed/updated [] Patient requests medication refills, see below for orders. PHQ-2/9 (Provider: if last PHQ done >/= 9 mos from today, consider repeating today or include in plan for next visit): No flowsheet data found. Objective (if obtainable) Physical Exam Constitutional: General: She is not in acute distress. Appearance: Normal appearance. Pulmonary: Effort: Pulmonary effort is normal. No respiratory distress. Musculoskeletal: Cervical back: Normal range of motion. Neurological: General: No focal deficit present. Mental Status: She is alert and oriented to person, place, and time. Mental status is at baseline. Psychiatric: Mood and Affect: Mood normal. Behavior: Behavior normal. Thought Content: Thought content normal. Judgment: Judgment normal. Assessment/Plan 1. Chronic painful diabetic neuropathy (CMS/HCC) (HCC) Assessment & Plan: Controlled After addressing medication(s) compliance, adverse effects, and efficacy of treatment(s), medications for this controlled chronic condition will be continued. Will try to simply regimen for now with 62.5 mcg patch Agreeable to see Palliative at [facility] in November - would be due for UDS and refills at that time (PCP to facilitate) Will be following up with pain management [facility] for implant - time of procedure still TBD Orders: - fentaNYL (Duragesic) 62.5 MCG/HR; Place 1 patch on the skin Every 72 hours., Starting [place]a 09/22/2022, Until 10/22/2022, Normal - fentaNYL (Duragesic) 62.5 MCG/HR; Place 1 patch on the skin Every 72 hours. Do not start before October 22, 2022., Starting 10/22/2022, Until 11/21/2022, Normal - fentaNYL (Duragesic) 62.5 MCG/HR; Place 1 patch on the skin Every 72 hours. Do not start before November 21, 2022., Starting 11/21/2022, Until 12/21/2022, Normal Health Maintenance Due Topic TSH Level Vitamin B-12 Diabetes: Celiac Disease Screening HIV Screening Colorectal Cancer Screening MMR Vaccines (1 of 1 - Standard series) Diabetes: Foot Exam Diabetes: Retinopathy Screening Diabetes: Dental Exam Hepatitis C Screening Mammogram Diabetes: Hemoglobin A1C Hepatitis B Vaccines (2 of 3 - 3-dose series) Lipid Panel COVID-19 Vaccine (4 - Booster for Moderna series) Follow Up: Follow up in about 3 months (around 12/14/2022) for [facility], for in-person OV. Niecy Addison DO 09/22/22 11:24 AM documented in this encounter [facility] 09-22-2022 Note HNO ID: [id number] Author: Katelynn Lewis, PhD Service: ? Author Type: Psychologist Type: Progress Notes Filed: 09/22/2022 1:10 PM Note Text: [facility]HAVIORAL MEDICINE EVALUATION REFERRING PHYSICIAN: Sharan Mendoza MD; Alban Batres PA-C ATTENDING PHYSICIAN: Katelynn Lewis, PHD Jael Benson PATIENT TYPE: [facility] : 1965 DATE OF SERVICE: September 22, 2022 IDENTIFYING INFORMATION Jael Benson is a 57 year old female from [place], [place], who was referred for evaluation by Sharan Mendoza MD and Alban Batres PA-C, to determine if she would be an appropriate candidate for a spinal cord stimulator. She was accompanied to her appointment by her spouse, Jael, who joined us.. PRESENTING COMPLAINT She presents with type 1 diabetes mellitus with autonomic neuropathy, E10.43; radiculopathy, lumbar region, M54.16; weakness, R53.1; numbness and tingling both hands, R20.0, R20.2. Her pain is reported to be in both hands with the right bothering her more than the left; she understands this procedure will not be for her hands. Her pain is also in both legs and feet from the knees down. Her usual intensity is 5-6 on a 10 point scale, subsiding to 4, and escalating to 8. She states it is not constant, but comes and goes. She describes it as being like labor pains, but not as intense. It is exacerbated by exercise, and walking, noting it is particularly difficult to walk. She reports it to be worse at night, especially as she has been having charley horses at night.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 States approved for implant but now just have to see a psychologist and wait for [facility] docs to schedule her for procedure - states it could be within the month or 6 months Ready to change medications since now unable to do baseline ADLs without increased pain Needs refills sent to [facility] - new insurance Controlled Substances Monitoring: No flowsheet data found. OARRs Reviewed. and No signs of potential drug abuse or diversion identified. [facility] PAIN MANAGEMENT DRUG PANEL Date Value Ref Range Status 03/16/2022 NEGATIVE NA Final No results found for: TRAMADOLUR Last pain management panel concordant: Yes Rationale for use of opioid: To treat moderate or severe pain and functional impairment caused by diagnosis of Chronic diabetic neuropathy Patient did not receive adequate pain control/function with 2 non-opioid treatments including: acetaminophen, ibuprofen, naproxen, adjuvant anticonvulsants, and adjuvantantidepressants at maximum tolerated doses Specialist referral and recommendation: Neurologist in past Opioid prescribed to treat non-cancer/non-malignant pain outside of active cancer treatment, palliative care, end of life/hospice care, sickle cell, severe burn, traumatic crushing of tissue, amputation, major orthopedic surgery. This short-acting opioid is prescribed after confirmation of the following; This patient is not opioid-naive.This patient has received opioid medications for at least 7 days prior to this prescription. An opioid agreement is recorded in the electronic record and confirms discussion of the benefits and risks of opioid therapy. RED FLAGS: Forging or altering a prescription: No Using another person's pain or scheduled medication: No Illegal drugs, including THC, in PNM: No Controlled drugs not prescribed by this office in PNM: No Intoxication: No Overdose: No Legal problems related to controlled substances: No Behavior that threatens staff or physician: No Accident motor vehicle crash: No PAIN ROS How is the pain medication helping your function: worsened: ambulation and dressing Are you having any sleepiness: No Are you having any constipation: Yes Are you having any mental slowing: No Are you having any sexual dysfunction: No PEG 1 (painon average in the past week with medications): 6 PEG 2 (pain interference with enjoyment of life): 6 PEG 3 (pain interference with normal activity): 4 SELF MANAGEMENT: The patient is interested in this area of self management: Meaningful life activities (familly, household responsibilities, work) Allergies Allergen Reactions Oxycodone Anxiety and Other Severe insomnia Levofloxacin Other reaction(s): Other (See Comments), Other: See Comments insomnia insomnia Diphenhydramine Other reaction(s): Agitation, Hyperactivity hyper Macrobid [Nitrofurantoin] Other reaction(s): Intolerance macrobid Metoclopramide Other Other reaction(s): Hyperactivity, Intolerance reglan hyper Phenothiazines Other reaction(s): Hyperactivity, Intolerance compazine hyper Opioid Risk Tool Female Male Family History of Substance Abuse Alcohol [] 1 [] 3 Illegal Drugs [] 2 [] 3 Rx Drugs [] 4 [] 4 Personal history of Substance Abuse Alcohol [] 3 [] 3 Illegal Drugs [] 4 [] 4 Rx Drugs [] 5 [] 5 Age 16-45 years old [] 1 [] 1 History of preadolescent sexual abuse [] 3 [] 0 Psychological Disease ADD, OCD, bipolar, schizophrenia [] 2 [] 2 Depression [x] 1 [] 1 TOTALS Score Interpretation Low Risk: 0 to 3 Moderate Risk: 4 to 7 High Risk: > 8 Learn More About Using Opioids here Review of Systems [] Problem list and/or medical history reviewed/updated as appropriate [x] Medication list reviewed/updated [x] Allergies reviewed/updated [x] Patient requests medication refills, see below for orders. PHQ-2/9 (Provider: if last PHQ done >/= 9 mos from today, consider repeating today or include in plan for next visit): No flowsheet data found. Objective (if obtainable) BP (!) 144/75 Comment: Ave Pulse 87 Temp 36.1 C (96.9 F) (Temporal) Ht 5' 4.02 (1.626 m) Wt 179 lb 6.4 oz (81.4 kg) BMI 30.78 kg/m Physical Exam Vitals reviewed. Constitutional: Appearance: She is not ill-appearing. Cardiovascular: Rate and Rhythm: Normal rate. Pulses: Normal pulses. Heart sounds: Normal heart sounds. Pulmonary: Effort: Pulmonary effort is normal. No respiratory distress. Breath sounds: Normal breath sounds. Abdominal: General: Abdomen is flat. Bowel sounds are normal. There is no distension. Palpations: Abdomen is soft. There is no mass. Tenderness: There is no abdominal tenderness. Skin: General: Skin is warm. Neurological: General: No focal deficit present. Mental Status: She is oriented to person, place, and time. Mental status is at baseline. Sensory: Sensory deficit present. Psychiatric: Mood and Affect: Mood normal. Behavior: Behavior normal. Thought Content: Thought content normal. Judgment: Judgment normal. documented in this encounter [facility] 09-01-2022 History of Present illness Narrative Images from the original note were not included. Prechart note: (the following data was documented before the visit began) Rooming: yearly LTOT paperwork and urine for UDS - ordered 06/2022 in [facility] Possible agenda: LTOT Provider notes: Med rec- recently on antibiotics in Dec Multidisciplinary team needs: Health Maintenance to be addressed today: mammo ordered 06/2022 Health Maintenance Due Topic TSH Level Vitamin B-12 Diabetes: Celiac Disease Screening HIV Screening Colorectal Cancer Screening MMR Vaccines (1 of 1 - Standard series) Diabetes: Foot Exam Diabetes: Retinopathy Screening Diabetes: Dental Exam Hepatitis C Screening Diabetes: Urine Protein Screening Mammogram Diabetes: Hemoglobin A1C Hepatitis B Vaccines (2 of 3 - 3-dose series) Lipid Panel COVID-19 Vaccine (4 - Booster for Moderna series) (end precharting)- [facility] [place] [address] [facility] [address] Dept: [phone] Dept Loc: [phone] Assessment/Plan 1. Chronic painful diabetic neuropathy (CMS/HCC) (HCC) Assessment & Plan: Uncontrolled Increase in baseline pain Agreeable to increase dose of duragesic with specific instructions that would need to see Pain Stewardship at [facility] in November Patient still has Duragesic 50 mcg through end of month Add Duragesic 12 mcg in addition for a total of 62 mcg q72 hours Discussed possibility of increase side effects such as drowsiness and constipation - patient has had experience with adverse effects on opiates in the past and is aware She will be able to stop the 12 mcg patch if any adverse effect between now and next appointment Close follow up at end of month before she is due for next 50 mcg refill Orders: - PAIN MANAGEMENT PANEL - Microalbumin / creatinine urine ratio - fentaNYL (DURAGESIC) 12 MCG/HR; Place 1 patch on the skin Every 72 hours., Starting Zahraa 09/01/2022, Until 10/01/2022, Normal Follow Up: Follow up in about 3 weeks (around 09/22/2022) for LTOT, for Telehealth, with PCP or Pod provider. Niecy Addison DO 09/01/22 1:14 PM Subjective Jael Benson is a 57 y.o. who presents for: Chief complaint: Chief Complaint Patient presents with Other LTOT. HPI Patient here for med refill for pain medications Having increased baseline pain for almost a year States approved for implant but now just have to see a psychologist and wait for [facility] docs to schedule her for procedure - states it could be within the month or 6 months Ready to change medications since now unable to do baseline ADLs without increased pain Needs refills sent to [facility] - new insurance Controlled Substances Monitoring: No flowsheet data found. OARRs Reviewed. and No signs of potential drug abuse or diversion identified. [facility] PAIN MANAGEMENT DRUG PANEL Date Value Ref Range Status 03/16/2022 NEGATIVE NA Final No results found for: TRAMADOLUR Last pain management panel concordant: Yes Rationale for use of opioid: To treat moderate or severe pain and functional impairment caused by diagnosis of Chronic diabetic neuropathy Patient did not receive adequate pain control/function with 2 non-opioid treatments including: acetaminophen, ibuprofen, naproxen, adjuvant anticonvulsants, and adjuvantantidepressants at maximum tolerated doses Specialist referral and recommendation: Neurologist in past Opioid prescribed to treat non-cancer/non-malignant pain outside of active cancer treatment, palliative care, end of life/hospice care, sickle cell, severe burn, traumatic crushing of tissue, amputation, major orthopedic surgery. This short-acting opioid is prescribed after confirmation of the following; This patient is not opioid-naive.This patient has received opioid medications for at least 7 days prior to this prescription. An opioid agreement is recorded in the electronic record and confirms discussion of the benefits and risks of opioid therapy. RED FLAGS: Forging or altering a prescription: No Using another person's pain or scheduled medication: No Illegal drugs, including THC, in PNM: No Controlled drugs not prescribed by this office in PNM: No Intoxication: No Overdose: No Legal problems related to controlled substances: No Behavior that threatens staff or physician: No Accident motor vehicle crash: No PAIN ROS How is the pain medication helping your function: worsened: ambulation and dressing Are you having any sleepiness: No Are you having any constipation: Yes Are you having any mental slowing: No Are you having any sexual dysfunction: No PEG 1 (painon average in the past week with medications): 5 PEG 2 (pain interference with enjoyment of life): 5 PEG 3 (pain interference with normal activity): 5 SELF MANAGEMENT: The patient is interested in this area of self management: Meaningful life activities (familly, household responsibilities, work) Allergies Allergen Reactions Oxycodone Anxiety and Other Severe insomnia Levofloxacin Other reaction(s): Other (See Comments), Other: See Comments insomnia insomnia Diphenhydramine Other reaction(s): Agitation, Hyperactivity hyper Macrobid [Nitrofurantoin] Other reaction(s): Intolerance macrobid Metoclopramide Other Other reaction(s): Hyperactivity, Intolerance reglan hyper Phenothiazines Other reaction(s): Hyperactivity, Intolerance compazine hyper Opioid Risk Tool Female Male Family History of Substance Abuse Alcohol [] 1 [] 3 Illegal Drugs [] 2 [] 3 Rx Drugs [] 4 [] 4 Personal history of Substance Abuse Alcohol [] 3 [] 3 Illegal Drugs [] 4 [] 4 Rx Drugs [] 5 [] 5 Age 16-45 years old [] 1 [] 1 History of preadolescent sexual abuse [] 3 [] 0 Psychological Disease ADD, OCD, bipolar, schizophrenia [] 2 [] 2 Depression [x] 1 [] 1 TOTALS Score Interpretation Low Risk: 0 to 3 Moderate Risk: 4 to 7 High Risk: > 8 Learn More About Using Opioids here Review of Systems [] Problem list and/or medical history reviewed/updated as appropriate [] Medication list reviewed/updated [] Allergies reviewed/updated [] Patient requests medication refills, see below for orders. PHQ-2/9 (Provider: if last PHQ done >/= 9 mos from today, consider repeating today or include in plan for next visit): No flowsheet data found. Objective (if obtainable) BP (!) 144/75 Comment: Ave Pulse 87 Temp 36.1 C (96.9 F) (Temporal) Ht 5' 4.02 (1.626 m) Wt 179 lb 6.4 oz (81.4 kg) BMI 30.78 kg/m Physical Exam Vitals reviewed. Constitutional: Appearance: She is not ill-appearing. Cardiovascular: Rate and Rhythm: Normal rate. Pulses: Normal pulses. Heart sounds: Normal heart sounds. Pulmonary: Effort: Pulmonary effort is normal. No respiratory distress. Breath sounds: Normal breath sounds. Abdominal: General: Abdomen is flat. Bowel sounds are normal. There is no distension. Palpations: Abdomen is soft. There is no mass. Tenderness: There is no abdominal tenderness. Skin: General: Skin is warm. Neurological: General: No focal deficit present. Mental Status: She is oriented to person, place, and time. Mental status is at baseline. Sensory: Sensory deficit present. Psychiatric: Mood and Affect: Mood normal. Behavior: Behavior normal. Thought Content: Thought content normal. Judgment: Judgment normal. documented in this encounter [facility] 09-01-2022 History of Present illness Narrative Images from the original note were not included. Prechart note: (the following data was documented before the visit began) Rooming: yearly LTOT paperwork and urine for UDS - ordered 06/2022 in [facility] Possible agenda: LTOT Provider notes: Med rec- recently on antibiotics in Dec Multidisciplinary team needs: Health Maintenance to be addressed today: mammo ordered 06/2022 Health Maintenance Due Topic TSH Level Vitamin B-12 Diabetes: Celiac Disease Screening HIV Screening Colorectal Cancer Screening MMR Vaccines (1 of 1 - Standard series) Diabetes: Foot Exam Diabetes: Retinopathy Screening Diabetes: Dental Exam Hepatitis C Screening Diabetes: Urine Protein Screening Mammogram Diabetes: Hemoglobin A1C Hepatitis B Vaccines (2 of 3 - 3-dose series) Lipid Panel COVID-19 Vaccine (4 - Booster for Moderna series) (end precharting)- [facility] [address] [facility] [address] Dept: [phone] Dept Loc: [phone] Assessment/Plan 1. Chronic painful diabetic neuropathy (CMS/HCC) ([facility]) Assessment & Plan: Uncontrolled Increase in baseline pain Agreeable to increase dose of duragesic with specific instructions that would need to see Pain Stewardship at [facility] in November Patient still has Duragesic 50 mcg through end of month Add Duragesic 12 mcg in addition for a total of 62 mcg q72 hours Discussed possibility of increase side effects such as drowsiness and constipation - patient has had experience with adverse effects on opiates in the past and is aware She will be able to stop the 12 mcg patch if any adverse effect between now and next appointment Close follow up at end of month before she is due for next 50 mcg refill Orders: - PAIN MANAGEMENT PANEL - Microalbumin / creatinine urine ratio - fentaNYL (DURAGESIC) 12 MCG/HR; Place 1 patch on the skin Every 72 hours., Starting Zahraa 09/01/2022, Until 10/01/2022, Normal Follow Up: Follow up in about 3 weeks (around 09/22/2022) for LTOT, for Telehealth, with PCP or Pod provider. Niecy Addison DO 09/01/22 1:14 PM Subjective Jael Benson is a 57 y.o. who presents for: Chief complaint: Chief Complaint Patient presents with Other LTOT. HPI Patient here for med refill for pain medications Having increased baseline pain for almost a year States approved for implant but now just have to see a psychologist and wait for [facility] docs to schedule her for procedure - states it could be within the month or 6 months Ready to change medications since now unable to do baseline ADLs without increased pain Needs refills sent to [facility] - new insurance Controlled Substances Monitoring: No flowsheet data found. OARRs Reviewed. and No signs of potential drug abuse or diversion identified. [facility] PAIN MANAGEMENT DRUG PANEL Date Value Ref Range Status 03/16/2022 NEGATIVE NA Final No results found for: TRAMADOLUR Last pain management panel concordant: Yes Rationale for use of opioid: To treat moderate or severe pain and functional impairment caused by diagnosis of Chronic diabetic neuropathy Patient did not receive adequate pain control/function with 2 non-opioid treatments including: acetaminophen, ibuprofen, naproxen, adjuvant anticonvulsants, and adjuvantantidepressants at maximum tolerated doses Specialist referral and recommendation: Neurologist in past Opioid prescribed to treat non-cancer/non-malignant pain outside of active cancer treatment, palliative care, end of life/hospice care, sickle cell, severe burn, traumatic crushing of tissue, amputation, major orthopedic surgery. This short-acting opioid is prescribed after confirmation of the following; This patient is not opioid-naive.This patient has received opioid medications for at least 7 days prior to this prescription. An opioid agreement is recorded in the electronic record and confirms discussion of the benefits and risks of opioid therapy. RED FLAGS: Forging or altering a prescription: No Using another person's pain or scheduled medication: No Illegal drugs, including THC, in PNM: No Controlled drugs not prescribed by this office in PNM: No Intoxication: No Overdose: No Legal problems related to controlled substances: No Behavior that threatens staff or physician: No Accident motor vehicle crash: No PAIN ROS How is the pain medication helping your function: worsened: ambulation and dressing Are you having any sleepiness: No Are you having any constipation: Yes Are you having any mental slowing: No Are you having any sexual dysfunction: No PEG 1 (painon average in the past week with medications): 6 PEG 2 (pain interference with enjoyment of life): 6 PEG 3 (pain interference with normal activity): 4 SELF MANAGEMENT: The patient is interested in this area of self management: Meaningful life activities (familly, household responsibilities, work) Allergies Allergen Reactions Oxycodone Anxiety and Other Severe insomnia Levofloxacin Other reaction(s): Other (See Comments), Other: See Comments insomnia insomnia Diphenhydramine Other reaction(s): Agitation, Hyperactivity hyper Macrobid [Nitrofurantoin] Other reaction(s): Intolerance macrobid Metoclopramide Other Other reaction(s): Hyperactivity, Intolerance reglan hyper Phenothiazines Other reaction(s): Hyperactivity, Intolerance compazine hyper Opioid Risk Tool Female Male Family History of Substance Abuse Alcohol [] 1 [] 3 Illegal Drugs [] 2 [] 3 Rx Drugs [] 4 [] 4 Personal history of Substance Abuse Alcohol [] 3 [] 3 Illegal Drugs [] 4 [] 4 Rx Drugs [] 5 [] 5 Age 16-45 years old [] 1 [] 1 History of preadolescent sexual abuse [] 3 [] 0 Psychological Disease ADD, OCD, bipolar, schizophrenia [] 2 [] 2 Depression [x] 1 [] 1 TOTALS Score Interpretation Low Risk: 0 to 3 Moderate Risk: 4 to 7 High Risk: > 8 Learn More About Using Opioids here Review of Systems [] Problem list and/or medical history reviewed/updated as appropriate [x] Medication list reviewed/updated [x] Allergies reviewed/updated [x] Patient requests medication refills, see below for orders. PHQ-2/9 (Provider: if last PHQ done >/= 9 mos from today, consider repeating today or include in plan for next visit): No flowsheet data found. Objective (if obtainable) BP (!) 144/75 Comment: Ave Pulse 87 Temp 36.1 C (96.9 F) (Temporal) Ht 5' 4.02 (1.626 m) Wt 179 lb 6.4 oz (81.4 kg) BMI 30.78 kg/m Physical Exam Vitals reviewed. Constitutional: Appearance: She is not ill-appearing. Cardiovascular: Rate and Rhythm: Normal rate. Pulses: Normal pulses. Heart sounds: Normal heart sounds. Pulmonary: Effort: Pulmonary effort is normal. No respiratory distress. Breath sounds: Normal breath sounds. Abdominal: General: Abdomen is flat. Bowel sounds are normal. There is no distension. Palpations: Abdomen is soft. There is no mass. Tenderness: There is no abdominal tenderness. Skin: General: Skin is warm. Neurological: General: No focal deficit present. Mental Status: She is oriented to person, place, and time. Mental status is at baseline. Sensory: Sensory deficit present. Psychiatric: Mood and Affect: Mood normal. Behavior: Behavior normal. Thought Content: Thought content normal. Judgment: Judgment normal. documented in this encounter [facility] 09-01-2022 History of Present illness Narrative Images from the original note were not included. Prechart note: (the following data was documented before the visit began) Rooming: yearly LTOT paperwork and urine for UDS - ordered 06/2022 in [facility] Possible agenda: LTOT Provider notes: Med rec- recently on antibiotics in [facility] Multidisciplinary team needs: Health Maintenance to be addressed today: mammo ordered 06/2022 Health Maintenance Due Topic TSH Level Vitamin B-12 Diabetes: Celiac Disease Screening HIV Screening Colorectal Cancer Screening MMR Vaccines (1 of 1 - Standard series) Diabetes: Foot Exam Diabetes: Retinopathy Screening Diabetes: Dental Exam Hepatitis C Screening Diabetes: Urine Protein Screening Mammogram Diabetes: Hemoglobin A1C Hepatitis B Vaccines (2 of 3 - 3-dose series) Lipid Panel COVID-19 Vaccine (4 - Booster for Moderna series) (end precharting)- [facility] [address] [facility] [id number] Dept: [phone] Dept Loc: [phone] Assessment/Plan 1. Chronic painful diabetic neuropathy (CMS/HCC) ([facility]) Assessment & Plan: Uncontrolled Increase in baseline pain Agreeable to increase dose of duragesic with specific instructions that would need to see Pain Stewardship at [facility] LTOT [facility]DC in November Patient still has Duragesic 50 mcg through end of month Add Duragesic 12 mcg in addition for a total of 62 mcg q72 hours Discussed possibility of increase side effects such as drowsiness and constipation - patient has had experience with adverse effects on opiates in the past and is aware She will be able to stop the 12 mcg patch if any adverse effect between now and next appointment Close follow up at end of month before she is due for next 50 mcg refill Orders: - PAIN MANAGEMENT PANEL - Microalbumin / creatinine urine ratio - fentaNYL (DURAGESIC) 12 MCG/HR; Place 1 patch on the skin Every 72 hours., Starting Zahraa 09/01/2022, Until 10/01/2022, Normal Follow Up: Follow up in about 3 weeks (around 09/22/2022) for LTOT, for Telehealth, with PCP or Pod provider. Niecy Addison, 09/01/22 1:14 PM Subjective Jael Benson is a 57 y.o. who presents for: Chief complaint: Chief Complaint Patient presents with Other LTOT. HPI Patient here for med refill for pain medications Having increased baseline pain for almost a year States approved for implant but now just have to see a psychologist and wait for [facility] docs to schedule her for procedure - states it could be within the month or 6 months Ready to change medications since now unable to do baseline ADLs without increased pain Needs refills sent to [facility] - new insurance Controlled Substances Monitoring: No flowsheet data found. OARRs Reviewed. and No signs of potential drug abuse or diversion identified. [employer] PAIN MANAGEMENT DRUG PANEL Date Value Ref Range Status 03/16/2022 NEGATIVE NA Final No results found for: TRAMADOLUR Last pain management panel concordant: Yes Rationale for use of opioid: To treat moderate or severe pain and functional impairment caused by diagnosis of Chronic diabetic neuropathy Patient did not receive adequate pain control/function with 2 non-opioid treatments including: acetaminophen, ibuprofen, naproxen, adjuvant anticonvulsants, and adjuvantantidepressants at maximum tolerated doses Specialist referral and recommendation: Neurologist in past Opioid prescribed to treat non-cancer/non-malignant pain outside of active cancer treatment, palliative care, end of life/hospice care, sickle cell, severe burn, traumatic crushing of tissue, amputation, major orthopedic surgery. This short-acting opioid is prescribed after confirmation of the following; This patient is not opioid-naive.This patient has received opioid medications for at least 7 days prior to this prescription. An opioid agreement is recorded in the electronic record and confirms discussion of the benefits and risks of opioid therapy. RED FLAGS: Forging or altering a prescription: No Using another person's pain or scheduled medication: No Illegal drugs, including THC, in PNM: No Controlled drugs not prescribed by this office in PNM: No Intoxication: No Overdose: No Legal problems related to controlled substances: No Behavior that threatens staff or physician: No Accident motor vehicle crash: No PAIN ROS How is the pain medication helping your function: worsened: ambulation and dressing Are you having any sleepiness: No Are you having any constipation: Yes Are you having any mental slowing: No Are you having any sexual dysfunction: No PEG 1 (painon average in the past week with medications): 6 PEG 2 (pain interference with enjoyment of life): 6 PEG 3 (pain interference with normal activity): 4 SELF MANAGEMENT: The patient is interested in this area of self management: Meaningful life activities (familly, household responsibilities, work) Allergies Allergen Reactions Oxycodone Anxiety and Other Severe insomnia Levofloxacin Other reaction(s): Other (See Comments), Other: See Comments insomnia insomnia Diphenhydramine Other reaction(s): Agitation, Hyperactivity hyper Macrobid [Nitrofurantoin] Other reaction(s): Intolerance macrobid Metoclopramide Other Other reaction(s): Hyperactivity, Intolerance reglan hyper Phenothiazines Other reaction(s): Hyperactivity, Intolerance compazine hyper Opioid Risk Tool Female Male Family History of Substance Abuse Alcohol [] 1 [] 3 Illegal Drugs [] 2 [] 3 Rx Drugs [] 4 [] 4 Personal history of Substance Abuse Alcohol [] 3 [] 3 Illegal Drugs [] 4 [] 4 Rx Drugs [] 5 [] 5 Age 16-45 years old [] 1 [] 1 History of preadolescent sexual abuse [] 3 [] 0 Psychological Disease ADD, OCD, bipolar, schizophrenia [] 2 [] 2 Depression [x] 1 [] 1 TOTALS Score Interpretation Low Risk: 0 to 3 Moderate Risk: 4 to 7 High Risk: > 8 Learn More About Using Opioids here Review of Systems [] Problem list and/or medical history reviewed/updated as appropriate [x] Medication list reviewed/updated [x] Allergies reviewed/updated [x] Patient requests medication refills, see below for orders. PHQ-2/9 (Provider: if last PHQ done >/= 9 mos from today, consider repeating today or include in plan for next visit): No flowsheet data found. Objective (if obtainable) BP (!) 144/75 Comment: Ave Pulse 87 Temp 36.1 C (96.9 F) (Temporal) Ht 5' 4.02 (1.626 m) Wt 179 lb 6.4 oz (81.4 kg) BMI 30.78 kg/m Physical Exam Vitals reviewed. Constitutional: Appearance: She is not ill-appearing. Cardiovascular: Rate and Rhythm: Normal rate. Pulses: Normal pulses. Heart sounds: Normal heart sounds. Pulmonary: Effort: Pulmonary effort is normal. No respiratory distress. Breath sounds: Normal breath sounds. Abdominal: General: Abdomen is flat. Bowel sounds are normal. There is no distension. Palpations: Abdomen is soft. There is no mass. Tenderness: There is no abdominal tenderness. Skin: General: Skin is warm. Neurological: General: No focal deficit present. Mental Status: She is oriented to person, place, and time. Mental status is at baseline. Sensory: Sensory deficit present. Psychiatric: Mood and Affect: Mood normal. Behavior: Behavior normal. Thought Content: Thought content normal. Judgment: Judgment normal. documented in this encounter [facility] 09-01-2022 Yodit Addison DO - 09/01/2022 9:50 AM EST Please call [phone] to schedule an appointment for your mammogram. documented in this encounter [facility] 09-01-2022 Instructions Niecy Addison DO - 09/01/2022 9:50 AM EST Please call [phone] to schedule an appointment for your mammogram. documented in this encounter [facility] 09-01-2022 Yodit Addison DO - 09/01/2022 9:50 AM EST Please call [phone] to schedule an appointment for your mammogram. documented in this encounter [facility] 09-01-2022 Yodit Addison DO - 09/01/2022 9:50 AM EST Please call [phone] to schedule an appointment for your mammogram. documented in this encounter [facility] 09-01-2022 Note Addended by: NIECY ADDISON on: 09/02/2022 07:42 AM Modules accepted: Orders [facility] 09-01-2022 Note Addended by: JAREN PATINO on: 09/02/2022 08:55 AM Modules accepted: Orders [facility] 09-01-2022 Note Addended by: NIECY ADDISON on: 09/02/2022 07:42 AM Modules accepted: Orders [facility] 09-01-2022 Note Addended by: JAREN PATINO on: 09/02/2022 08:55 AM Modules accepted: Orders [facility] 09-01-2022 Note Addended by: NIECY ADDISON on: 09/02/2022 07:42 AM Modules accepted: Orders [facility] 09-01-2022 Note Addended by: JAREN PATINO on: 09/02/2022 08:55 AM Modules accepted: Orders [facility] 09-01-2022 Note Addended by: NIECY ADDISON on: 09/02/2022 07:42 AM Modules accepted: Orders [facility] 09-01-2022 Note Addended by: JAREN PATINO on: 09/02/2022 08:55 AM Modules accepted: Orders [facility] 09-01-2022 Note Addended by: NIECY ADDISON on: 09/02/2022 07:42 AM Modules accepted: Orders [facility] 09-01-2022 Note Addended by: JAREN PATINO on: 09/02/2022 08:55 AM Modules accepted: Orders [facility] 09-01-2022 Note Addended by: NIECY ADDISON on: 09/02/2022 07:42 AM Modules accepted: Orders [facility] 09-01-2022 Note Addended by: JAREN PATINO on: 09/02/2022 08:55 AM Modules accepted: Orders [facility] 09-01-2022 Note Addended by: NIECY ADDISON on: 09/02/2022 07:42 AM Modules accepted: Orders [facility] 09-01-2022 Note Addended by: JAREN PATINO on: 09/02/2022 08:55 AM Modules accepted: Orders [facility] 09-01-2022 Progress note Formatting of t his note might be different from the original. Urine drug screen is concordant [facility] 09-01-2022 Progress note Formatting of t his note might be different from the original. Urine drug screen is concordant [facility] 08-25-2022 History of Present illness Narrative This note was created using NoteWriter. Subjective Jael Benson is a 57 year old female. HPI Patient presents with sinus pressure and congestion on the right side of her face over the past 2 or 3 weeks. She had 1 illness that she had gotten over the past 4 to 5 days has new congestion and cough. The sinus pressure has remained. She also has a prosthetic left eye and has noted some drainage. She did remove the eye. Her currently has pinkeye. He also has URI symptoms. No fever. Her son did recently have influenza. Review of Systems Constitutional: Negative. HENT: Positive for congestion, rhinorrhea, sinus pressure and sinus pain. Negative for ear pain. Eyes: Positive for discharge. Negative for pain. Respiratory: Positive for cough. Cardiovascular: Negative. Gastrointestinal: Negative. Genitourinary: Negative. Musculoskeletal: Negative. All other systems reviewed and are negative. 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 ciprofloxacin HCl (CIPRO ORAL) Take by mouth. aspirin-calcium carbonate 81 mg-300 mg calcium(777 mg) tab Take 81 mg by mouth. venlafaxine ER (EFFEXOR XR) 150 mg 24 hr capsule TAKE 1 CAPSULE DAILY IN THE MORNING venlafaxine (EFFEXOR) 75 mg tablet TAKE 1 TABLET DAILY AT BEDTIME temazepam (RESTORIL) 15 mg cap Take by mouth at bedtime as needed. 1-2 tablets in the pm medroxyPROGESTERone (PROVERA, CYCRIN) 2.5 mg tablet Take 2.5 mg by mouth once daily. Estradiol (ESTRACE) 0.5 mg tablet Take 0.5 mg by mouth once daily. fentaNYL (DURAGESIC) 50 mcg/hr meclizine (ANTIVERT) 25 mg tab Take 25 mg by mouth twice daily as needed. insulin lispro (HUMALOG) 100 unit/mL injection Inject SQ as directed in insulin pump up to 100 units daily 9 Vial 3 insulin lispro (HUMALOG) 100 unit/mL injection Inject SQ as directed in insulin pump up to 100 units daily 9 Vial 3 scopolamine 1.5 mg Apply as directed. use every 72 hours as directed 3 Patch 0 Multivitamin capsule Take 1 capsule by mouth once daily. gabapentin (NEURONTIN) 800 mg tablet Take 1 tablet by mouth four times daily. 28 tablet 0 glucagon, human recombinant, (GLUCAGON EMERGENCY) 1 mg injection 1 mg as directed. INJECT FOR INSULIN SHOCK 1 Each 11 losartan (COZAAR) 50 mg ORAL tablet Take 1 tablet by mouth once daily. 90 tablet 3 lovastatin 10 mg ORAL tablet Take 1 tablet by mouth daily with dinner. 90 tablet 3 Infusion Set for Insulin Pump (JUSTUS INFUSION SET) [facility] ISet MMT 923 changes site every 3 days 30 Each 4 Insulin Pump Syringe (PARADIGM RESERVOIR) [facility] site every 3 days 30 Each 4 amoxicillin-clavulanic acid (AUGMENTIN) 875-125 mg per tablet Take 1 tablet by mouth twice daily for 7 days. 14 tablet 0 Catheter 14-16 Fr- [facility] use as directed four times a day (Patient not taking: Reported on 08/25/2022) 120 Each 11 No current facility-administered medications for this visit. PAST SURGICAL HISTORY Procedure Laterality Date , CLASSIC, ANTE/POST CA 02/27/88, 06/03/91 x2 COLPOSCOPY CERVIX UPPER/ADJACENT VAGINA 1999 LEEP LAPAROSCOPY DIAGNOSTIC for fertility NEUROPLASTY &/TRANSPOS MEDIAN NRV CARPAL TUNNE 04-26-13 Carpal tunnel decomp, left PAST SURGICAL HISTORY OF 2002 Left ureter obstruction/stent scope PAST SURGICAL HISTORY OF 06-26-2001 Rt ankle fx repair with plates/screws PAST SURGICAL HISTORY OF right CTR PAST SURGICAL HISTORY OF 2007 left eye enucleation d/t pain FAMILY HISTORY Problem Relation Age of Onset Diabetes Son Heart Father colon polyps Heart Sister other (spinal stenosis [Other]) Father Social History Tobacco Use Smoking status: Former Packs/day: 1.00 Years: 8.00 Pack years: 8.00 Types: Cigarettes Quit date: 08/28/1986 Years since quittin.0 Smokeless tobacco: Never Vaping Use Vaping Use: Never used Substance Use Topics Alcohol use: No Drug use: No Objective BP 138/76 Pulse 90 Temp 36.6 C (97.8 F) (Tympanic) Resp 16 LMP (LMP Unknown) SpO2 99% Physical Exam Vitals reviewed. Constitutional: Appearance: Normal appearance. HENT: Head: Normocephalic and atraumatic. Right Ear: Tympanic membrane, ear canal and external ear normal. Left Ear: Tympanic membrane, ear canal and external ear normal. Nose: Congestion present. Right Sinus: Maxillary sinus tenderness present. No frontal sinus tenderness. Left Sinus: No maxillary sinus tenderness or frontal sinus tenderness. Mouth/Throat: Mouth: Mucous membranes are moist. Pharynx: Oropharynx is clear. Eyes: Comments: Left eye socket without globe, some stingy drainage. No periorbital redness or swelling. Cardiovascular: Rate and Rhythm: Normal rate and regular rhythm. Heart sounds: Normal heart sounds. Pulmonary: Effort: Pulmonary effort is normal. Breath sounds: Normal breath sounds. Musculoskeletal: Cervical back: Neck supple. Lymphadenopathy: Cervical: No cervical adenopathy. Skin: General: Skin is warm and dry. Neurological: General: No focal deficit present. Mental Status: She is alert. Assessment and Plan ASSESSMENT/PLAN: 1. Acute non-recurrent maxillary sinusitis - ICD9: 461.0, ICD10: J01.00 - Will begin treatment with Augmentin 875 mg PO BID for 7 days - Supportive care with plenty of fluids, rest, and analgesia prn. - Follow up in 3-5 days if symptoms persist or worsen. - COVID WITH FLUA+B, ROUTINE 2. Conjunctivitis, viral - ICD9: 077.99, ICD10: B30.9 Likely viral conjunctivitis, patient on augmentin for sinusitis which will cover as well. Follow up with eye doctor. ALBERTA Juan PA-C documented in this encounter [facility] 07-08-2022 History of Present illness Narrative Cologuard orders canceled automatically by interface (?) - reordered today documented in this encounter [facility] 07-08-2022 Miscellaneous Notes Addended by: NIECY ADDISON on: 04/19/2024 12:42 PM Modules accepted: Orders documented in this encounter [facility] 07-08-2022 Note Addended by: NIECY ADDISON on: 04/19/2024 12:42 PM Modules accepted: Orders [facility] 07-01-2022 History of Present illness Narrative UNIVERSAL PROTOCOL / SAFETY CHECKLIST Procedure to be Performed: EMG Sign In: A Moment of CARE was completed. Personnel directly involved with the procedure wore the appropriate PPE (Personal Protective Equipment). Patient/Surrogate Stated/Verified: PATIENT VERIFIED(optional for EMERGENT procedures): Patient name, Date of , Relevant allergies, and The intended procedure Time Out Communication: Intended patient and procedure match the source documents. Correct side/site marked and visible. Sign Out: SIGN OUT (optional for EMERGENT procedures): Post-procedure follow-up management communicated and Plan of Care Visit completed when applicable. Brad Langford DO documented in this encounter [facility] 06-03-2022 History of Present illness Narrative UNIVERSAL PROTOCOL / SAFETY CHECKLIST Procedure to be Performed: EMG Sign In: A Moment of CARE was completed. Personnel directly involved with the procedure wore the appropriate PPE (Personal Protective Equipment). Patient/Surrogate Stated/Verified: PATIENT VERIFIED(optional for EMERGENT procedures): Patient name, Date of , Relevant allergies, and The intended procedure Time Out Communication: Intended patient and procedure match the source documents. Correct side/site marked and visible. Sign Out: SIGN OUT (optional for EMERGENT procedures): Post-procedure follow-up management communicated and Plan of Care Visit completed when applicable. Winnie Brown DO documented in this encounter [facility] 05-25-2022 Note HNO ID: [id number] Author: Antoinette [place], RT(R) Service: ? Author Type: Technologist Type: Progress Notes Filed: 05/25/2022 2:06 PM Note Text: Radiology Service Progress Note PATIENT NAME: Jael Benson DATE OF SERVICE: May 25, 2022 TIME: 2:05 PM PATIENT IDENTITY VERIFICATION COMPLETED USING TWO (2) IDENTIFIERS: Name and Date of confirmed by patient verbally. FALL SCREENING: Has the patient had 2 falls in the last year or 1 fall with injury or currently using an Ambulatory Assistive Device (Walker, Cane, Wheelchair, Crutches, etc.)? No PATIENT GENDER DATA: Female. status: : No status: NO. PATIENT RELEVANT IMPLANT DATA REVIEWED: Yes RADIOLOGY DEPARTMENT: MR; Exam(s) Completed: Spine: Cervical spine, Thoracic spine, and Lumbar spine PERIPHERAL IV DATA: Not applicable SIGNED BY: Antoinette Escamilla RDMS, RVT May 25, 2022 2:05 PM [facility] 05-25-2022 History of Present illness Narrative Radiology Service Progress Note PATIENT NAME: Jael Benson DATE OF SERVICE: May 25, 2022 TIME: 2:05 PM PATIENT IDENTITY VERIFICATION COMPLETED USING TWO (2) IDENTIFIERS: Name and Date of confirmed by patient verbally. FALL SCREENING: Has the patient had 2 falls in the last year or 1 fall with injury or currently using an Ambulatory Assistive Device (Walker, Cane, Wheelchair, Crutches, etc.)? No PATIENT GENDER DATA: Female. status: : No status: NO. PATIENT RELEVANT IMPLANT DATA REVIEWED: Yes RADIOLOGY DEPARTMENT: MR; Exam(s) Completed: Spine: Cervical spine, Thoracic spine, and Lumbar spine PERIPHERAL IV DATA: Not applicable SIGNED BY: Antoinette Escamilla RDMS, RVT May 25, 2022 2:05 PM documented in this encounter [facility] Evaluation note Diagnosis Chronic painful diabetic neuropathy (HCC) Acute pyelonephritis Acute pyelonephritis without lesion of renal medullary necrosis Neurogenic bladder Neurogenic bladder, NOS documented in this encounter [facility] Work Phone: Evaluation note* Diagnosis Urinary frequency documented in this encounter [facility] Work Phone: Evaluation note* Diagnosis Chronic painful diabetic neuropathy (HCC) documented [facility] encounter [facility] Work Phone: Evaluation note* Diagnosis Radiculopathy of lumbar region Thoracic or lumbosacral neuritis or radiculitis, unspecified documented in this encounter [facility] note* Diagnosis Radiculopathy of lumbar region Thoracic or lumbosacral neuritis or radiculitis, unspecified documented in this encounter [facility] note* Diagnosis Hereditary and idiopathic neuropathy, unspecified- Primary Weakness Other malaise and fatigue Paresthesia of skin Disturbance of skin sensation documented in this encounter [facility] note* Diagnosis Carpal tunnel syndrome, left upper limb- Primary Weakness Other malaise and fatigue Median nerve lesion, right Paresthesia of skin Disturbance of skin sensation documented in this encounter [facility] note* Diagnosis Bilateral carpal tunnel syndrome- Primary Carpal tunnel syndrome Numbness and tingling in both hands documented in this encounter [facility] note* Diagnosis Acute non-recurrent maxillary sinusitis- Primary Conjunctivitis, viral Unspecified diseases of conjunctiva due to viruses [facility] Diagnosis Pain disorder with related psychological factors- Primary Type 1 diabetes mellitus with peripheral autonomic neuropathy (HCC) Type I (juvenile type) diabetes mellitus with neurological manifestations, not stated as uncontrolled documented in this encounter [facility] note* Diagnosis Pre-op evaluation- Primary Preoperative examination, unspecified Type 1 diabetes mellitus with diabetic neuropathy (HCC) Type I (juvenile type) diabetes mellitus with neurological manifestations, not stated as uncontrolled Primary hypertension Unspecified essential hypertension Stage 3 chronic kidney disease, unspecified whether stage 3a or 3b CKD (HCC) Diabetic peripheral neuropathy (HCC) Type II or unspecified type diabetes mellitus with neurological manifestations, not stated as uncontrolled 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)- Primary Diabetic peripheral neuropathy (HCC) Type II or unspecified type diabetes mellitus with neurological manifestations, not stated as uncontrolled documented in this encounter [facility] note* Diagnosis Radiculopathy of lumbar region- Primary Thoracic or lumbosacral neuritis or radiculitis, unspecified Diabetic autonomic neuropathy associated with type 2 diabetes mellitus (HCC) Type II or unspecified type diabetes mellitus with neurological manifestations, not stated as uncontrolled Diabetic peripheral neuropathy (HCC) Type II or unspecified type diabetes mellitus with neurological manifestations, not stated as uncontrolled documented in this encounter [facility] note* Diagnosis Radiculopathy of lumbar region- Primary Thoracic or lumbosacral neuritis or radiculitis, unspecified Diabetic peripheral neuropathy (HCC) Type II or unspecified type diabetes mellitus with neurological manifestations, not stated as uncontrolled [facility] Diagnosis Chronic painful diabetic neuropathy (CMS/HCC) (HCC)- [facility] Chronic painful diabetic neuropathy (CMS/HCC) (HCC)- Primary [facility] Diagnosis Chronic painful diabetic neuropathy (CMS/HCC) (HCC)- Primary [facility] Diagnosis Chronic painful diabetic neuropathy (CMS/HCC) (HCC)- Primary Screening for lipid disorders Need for hepatitis C screening test Special screening examination for other specified viral diseases Screening for HIV (human immunodeficiency virus) Special screening examination for other specified viral diseases Thyroid disorder screen Screening for thyroid disorder [facility] Diagnosis Chronic painful diabetic neuropathy (CMS/HCC) (HCC)- Primary Recurrent major depressive disorder, in remission (HCC) Coronary artery disease involving [place] coronary artery of [place] heart without angina pectoris Menopausal syndrome on hormone replacement therapy Colon cancer screening Special screening for malignant neoplasms, colon Encounter for screening mammogram for malignant neoplasm of breast [facility] Urinary retention- Primary Unspecified retention of urine Neurogenic bladder Neurogenic bladder, NOS Frequent UTI Urinary tract infection, site not specified Nocturia documented in this encounter [facility] Work Phone: Evaluation note* Diagnosis Chronic painful diabetic neuropathy (CMS/HCC) (HCC) [facility] Diagnosis Chronic painful diabetic neuropathy (CMS/HCC) (HCC)- Primary Menopausal syndrome on hormone replacement therapy Pain in both hands Need for vaccination Need for prophylactic vaccination and inoculation against unspecified single disease [facility] Diagnosis Moderate episode of recurrent major depressive disorder (HCC)- Primary [facility] Diagnosis Moderate episode of recurrent major depressive disorder (HCC) [facility] Diagnosis Type 1 diabetes mellitus with diabetic polyneuropathy (HCC)- Primary Type I (juvenile type) diabetes mellitus with neurological manifestations, not stated as uncontrolled 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) documented in this encounter [facility] note* Diagnosis Chronic painful diabetic neuropathy (CMS/HCC) (HCC)- Primary Menopausal syndrome on hormone replacement therapy Encounter for monitoring opioid maintenance therapy Encounter for screening mammogram for malignant neoplasm of breast Colon cancer screening Special screening for malignant neoplasms, colon [facility] Diagnosis Chronic painful diabetic neuropathy (CMS/HCC) (HCC) [facility] Diagnosis Chronic painful diabetic neuropathy (CMS/HCC) (HCC)- Primary Pain in both hands Encounter for screening mammogram for malignant neoplasm of breast Colon cancer screening Special screening for malignant neoplasms, colon [facility] Diagnosis Psychophysiological insomnia- Primary Persistent disorder of initiating or maintaining sleep [facility] Diagnosis Type 1 diabetes mellitus with diabetic polyneuropathy (HCC)- Primary Type I (juvenile type) diabetes mellitus with neurological manifestations, not stated as uncontrolled documented in this encounter [facility] note* Diagnosis Type 1 diabetes mellitus with diabetic autonomic neuropathy (CMS/HCC) (HCC)- Primary Chronic painful diabetic neuropathy (CMS/HCC) (HCC) Colon cancer screening Special screening for malignant neoplasms, colon Encounter for screening mammogram for malignant neoplasm of breast Screen for colon cancer Special screening for malignant neoplasms, colon [facility] Diagnosis Chronic painful diabetic neuropathy (CMS/HCC) (HCC) [facility] Diagnosis Pre-op evaluation- Primary Preoperative examination, unspecified Type 1 diabetes mellitus with diabetic neuropathy (HCC) Type I (juvenile type) diabetes mellitus with neurological manifestations, not stated as uncontrolled Primary hypertension Unspecified essential hypertension Stage 3 chronic kidney disease, unspecified whether stage 3a or 3b CKD (HCC) Diabetic peripheral neuropathy (HCC)- Primary Type II or unspecified type diabetes mellitus with neurological manifestations, not stated as uncontrolled documented in this encounter [facility] note* Diagnosis Pre-op evaluation- Primary Preoperative examination, unspecified Type 1 diabetes mellitus with diabetic neuropathy (HCC) Type I (juvenile type) diabetes mellitus with neurological manifestations, not stated as uncontrolled Primary hypertension Unspecified essential hypertension Stage 3 chronic kidney disease, unspecified whether stage 3a or 3b CKD (HCC) 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 I (juvenile type) diabetes mellitus with neurological manifestations, not stated as uncontrolled 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 Diagnosis Chronic painful diabetic neuropathy (CMS/HCC) (HCC) documented in this encounter [facility] note* Diagnosis Chronic painful diabetic neuropathy (CMS/HCC) (HCC)- Primary Menopausal syndrome on hormone replacement therapy Encounter for monitoring opioid maintenance therapy Encounter for screening mammogram for malignant neoplasm of breast Colon cancer screening Special screening for malignant neoplasms, colon documented in this encounter [facility] note* Diagnosis Psychophysiological insomnia- Primary Persistent disorder of initiating or maintaining sleep Chronic painful diabetic neuropathy (CMS/HCC) (HCC) Recurrent major depressive disorder, in remission (HCC) Coronary artery disease involving [place] coronary artery of [place] heart without angina pectoris documented in this encounter [facility] note* Diagnosis Pre-op evaluation- Primary Preoperative examination, unspecified Type 1 diabetes mellitus with diabetic neuropathy (HCC) Type I (juvenile type) diabetes mellitus with neurological manifestations, not stated as uncontrolled Primary hypertension Unspecified essential hypertension Stage 3 chronic kidney disease, unspecified whether stage 3a or 3b CKD (HCC) Type 1 diabetes mellitus with diabetic polyneuropathy (HCC)- Primary Type I (juvenile type) diabetes mellitus with neurological manifestations, not stated as uncontrolled documented in this encounter [facility] note* Diagnosis Pre-op evaluation- Primary Preoperative examination, unspecified Type 1 diabetes mellitus with diabetic neuropathy (HCC) Type I (juvenile type) diabetes mellitus with neurological manifestations, not stated as uncontrolled Primary hypertension Unspecified essential hypertension Stage 3 chronic kidney disease, unspecified whether stage 3a or 3b CKD (HCC) Snoring- Primary Other dyspnea and respiratory abnormality Chronic, continuous use of opioids Opioid type dependence, continuous Non-restorative sleep Other sleep disturbances Excessive daytime sleepiness RLS (restless legs syndrome) Restless legs syndrome (RLS) documented in this encounter [facility] note* Diagnosis Chronic painful diabetic neuropathy (CMS/HCC) (HCC)- Primary documented in this encounter [facility] note* Diagnosis Chronic painful diabetic neuropathy (CMS/HCC) (HCC) [facility] Diagnosis Chronic painful diabetic neuropathy (CMS/HCC) (HCC) [facility] Diagnosis Chronic painful diabetic neuropathy (CMS/HCC) (HCC)- Primary Chronic painful diabetic neuropathy (CMS/HCC) (HCC) Chronic painful diabetic neuropathy (CMS/HCC) (HCC)- Primary Screening for lipid disorders Need for hepatitis C screening test Special screening examination for other specified viral diseases Screening for HIV (human immunodeficiency virus) Special screening examination for other specified viral diseases Thyroid disorder screen Screening for thyroid disorder Chronic painful diabetic neuropathy (CMS/HCC) (HCC)- Primary Recurrent major depressive disorder, in remission (HCC) Coronary artery disease involving [place] coronary artery of [place] heart without angina pectoris Menopausal syndrome on hormone replacement therapy Colon cancer screening Special screening for malignant neoplasms, colon Encounter for screening mammogram for malignant neoplasm of breast Chronic painful diabetic neuropathy (CMS/HCC) (HCC)- Primary Menopausal syndrome on hormone replacement therapy Pain in both hands Need for vaccination Need for prophylactic vaccination and inoculation against unspecified single disease Chronic painful diabetic neuropathy (CMS/HCC) (HCC)- Primary Menopausal syndrome on hormone replacement therapy Encounter for monitoring opioid maintenance therapy Encounter for screening mammogram for malignant neoplasm of breast Colon cancer screening Special screening for malignant neoplasms, colon Chronic painful diabetic neuropathy (CMS/HCC) (HCC)- Primary Pain in both hands Encounter for screening mammogram for malignant neoplasm of breast Colon cancer screening Special screening for malignant neoplasms, colon Psychophysiological insomnia- Primary Persistent disorder of initiating or maintaining sleep Psychophysiological insomnia- Primary Persistent disorder of initiating or maintaining sleep Chronic painful diabetic neuropathy (CMS/HCC) (HCC) Recurrent major depressive disorder, in remission (HCC) Coronary artery disease involving [place] coronary artery of [place] heart without angina pectoris Screening mammogram for breast cancer [facility] Diagnosis Chronic painful diabetic neuropathy (CMS/HCC) (HCC)- Primary Chronic painful diabetic neuropathy (CMS/HCC) (HCC) Chronic painful diabetic neuropathy (CMS/HCC) (HCC)- Primary Screening for lipid disorders Need for hepatitis C screening test Special screening examination for other specified viral diseases Screening for HIV (human immunodeficiency virus) Special screening examination for other specified viral diseases Thyroid disorder screen Screening for thyroid disorder Chronic painful diabetic neuropathy (CMS/HCC) (HCC)- Primary Recurrent major depressive disorder, in remission (HCC) Coronary artery disease involving [place] coronary artery of [place] heart without angina pectoris Menopausal syndrome on hormone replacement therapy Colon cancer screening Special screening for malignant neoplasms, colon Encounter for screening mammogram for malignant neoplasm of breast Chronic painful diabetic neuropathy (CMS/HCC) (HCC)- Primary Menopausal syndrome on hormone replacement therapy Pain in both hands Need for vaccination Need for prophylactic vaccination and inoculation against unspecified single disease Chronic painful diabetic neuropathy (CMS/HCC) (HCC)- Primary Menopausal syndrome on hormone replacement therapy Encounter for monitoring opioid maintenance therapy Encounter for screening mammogram for malignant neoplasm of breast Colon cancer screening Special screening for malignant neoplasms, colon Chronic painful diabetic neuropathy (CMS/HCC) (HCC)- Primary Pain in both hands Encounter for screening mammogram for malignant neoplasm of breast Colon cancer screening Special screening for malignant neoplasms, colon Psychophysiological insomnia- Primary Persistent disorder of initiating or maintaining sleep Psychophysiological insomnia- Primary Persistent disorder of initiating or maintaining sleep Chronic painful diabetic neuropathy (CMS/HCC) (HCC) Recurrent major depressive disorder, in remission (HCC) Coronary artery disease involving [place] coronary artery of [place] heart without angina pectoris Chronic painful diabetic neuropathy (CMS/HCC) (HCC)- Primary Essential hypertension Unspecified essential hypertension Psychophysiological insomnia Persistent disorder of initiating or maintaining sleep 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 Need for vaccination Need for prophylactic vaccination and inoculation against unspecified single disease Colon cancer screening Special screening for malignant neoplasms, colon [facility] Diagnosis Chronic painful diabetic neuropathy (CMS/HCC) (HCC)- Primary Chronic painful diabetic neuropathy (CMS/HCC) (HCC) Chronic painful diabetic neuropathy (CMS/HCC) (HCC)- Primary Screening for lipid disorders Need for hepatitis C screening test Special screening examination for other specified viral diseases Screening for HIV (human immunodeficiency virus) Special screening examination for other specified viral diseases Thyroid disorder screen Screening for thyroid disorder Chronic painful diabetic neuropathy (CMS/HCC) (HCC)- Primary Recurrent major depressive disorder, in remission (HCC) Coronary artery disease involving [place] coronary artery of [place] heart without angina pectoris Menopausal syndrome on hormone replacement therapy Colon cancer screening Special screening for malignant neoplasms, colon Encounter for screening mammogram for malignant neoplasm of breast Chronic painful diabetic neuropathy (CMS/HCC) (HCC)- Primary Menopausal syndrome on hormone replacement therapy Pain in both hands Need for vaccination Need for prophylactic vaccination and inoculation against unspecified single disease Chronic painful diabetic neuropathy (CMS/HCC) (HCC)- Primary Menopausal syndrome on hormone replacement therapy Encounter for monitoring opioid maintenance therapy Encounter for screening mammogram for malignant neoplasm of breast Colon cancer screening Special screening for malignant neoplasms, colon Chronic painful diabetic neuropathy (CMS/HCC) (HCC)- Primary Pain in both hands Encounter for screening mammogram for malignant neoplasm of breast Colon cancer screening Special screening for malignant neoplasms, colon Psychophysiological insomnia- Primary Persistent disorder of initiating or maintaining sleep Psychophysiological insomnia- Primary Persistent disorder of initiating or maintaining sleep Chronic painful diabetic neuropathy (CMS/HCC) (HCC) Recurrent major depressive disorder, in remission (HCC) Coronary artery disease involving [place] coronary artery of [place] heart without angina pectoris Chronic painful diabetic neuropathy (CMS/HCC) (HCC)- Primary Essential hypertension Unspecified essential hypertension Psychophysiological insomnia Persistent disorder of initiating or maintaining sleep 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 Need for vaccination Need for prophylactic vaccination and inoculation against unspecified single disease Colon cancer screening Special screening for malignant neoplasms, colon [facility] Diagnosis Chronic painful diabetic neuropathy (CMS/HCC) (HCC)- Primary Chronic painful diabetic neuropathy (CMS/HCC) (HCC) Chronic painful diabetic neuropathy (CMS/HCC) (HCC)- Primary Screening for lipid disorders Need for hepatitis C screening test Special screening examination for other specified viral diseases Screening for HIV (human immunodeficiency virus) Special screening examination for other specified viral diseases Thyroid disorder screen Screening for thyroid disorder Chronic painful diabetic neuropathy (CMS/HCC) (HCC)- Primary Recurrent major depressive disorder, in remission (HCC) Coronary artery disease involving [place] coronary artery of [place] heart without angina pectoris Menopausal syndrome on hormone replacement therapy Colon cancer screening Special screening for malignant neoplasms, colon Encounter for screening mammogram for malignant neoplasm of breast Chronic painful diabetic neuropathy (CMS/HCC) (HCC)- Primary Menopausal syndrome on hormone replacement therapy Pain in both hands Need for vaccination Need for prophylactic vaccination and inoculation against unspecified single disease Chronic painful diabetic neuropathy (CMS/HCC) (HCC)- Primary Menopausal syndrome on hormone replacement therapy Encounter for monitoring opioid maintenance therapy Encounter for screening mammogram for malignant neoplasm of breast Colon cancer screening Special screening for malignant neoplasms, colon Chronic painful diabetic neuropathy (CMS/HCC) (HCC)- Primary Pain in both hands Encounter for screening mammogram for malignant neoplasm of breast Colon cancer screening Special screening for malignant neoplasms, colon Psychophysiological insomnia- Primary Persistent disorder of initiating or maintaining sleep Psychophysiological insomnia- Primary Persistent disorder of initiating or maintaining sleep Chronic painful diabetic neuropathy (CMS/HCC) (HCC) Recurrent major depressive disorder, in remission (HCC) Coronary artery disease involving [place] coronary artery of [place] heart without angina pectoris Chronic painful diabetic neuropathy (CMS/HCC) (HCC)- Primary Essential hypertension Unspecified essential hypertension Psychophysiological insomnia Persistent disorder of initiating or maintaining sleep 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 Need for vaccination Need for prophylactic vaccination and inoculation against unspecified single disease Colon cancer screening Special screening for malignant neoplasms, colon Depression, major, recurrent, mild (HCC)- Primary [facility] Diagnosis Chronic painful diabetic neuropathy (CMS/HCC) (HCC)- Primary Chronic painful diabetic neuropathy (CMS/HCC) (HCC) Chronic painful diabetic neuropathy (CMS/HCC) (HCC)- Primary Screening for lipid disorders Need for hepatitis C screening test Special screening examination for other specified viral diseases Screening for HIV (human immunodeficiency virus) Special screening examination for other specified viral diseases Thyroid disorder screen Screening for thyroid disorder Chronic painful diabetic neuropathy (CMS/HCC) (HCC)- Primary Recurrent major depressive disorder, in remission (HCC) Coronary artery disease involving [place] coronary artery of [place] heart without angina pectoris Menopausal syndrome on hormone replacement therapy Colon cancer screening Special screening for malignant neoplasms, colon Encounter for screening mammogram for malignant neoplasm of breast Chronic painful diabetic neuropathy (CMS/HCC) (HCC)- Primary Menopausal syndrome on hormone replacement therapy Pain in both hands Need for vaccination Need for prophylactic vaccination and inoculation against unspecified single disease Chronic painful diabetic neuropathy (CMS/HCC) (HCC)- Primary Menopausal syndrome on hormone replacement therapy Encounter for monitoring opioid maintenance therapy Encounter for screening mammogram for malignant neoplasm of breast Colon cancer screening Special screening for malignant neoplasms, colon Chronic painful diabetic neuropathy (CMS/HCC) (HCC)- Primary Pain in both hands Encounter for screening mammogram for malignant neoplasm of breast Colon cancer screening Special screening for malignant neoplasms, colon Psychophysiological insomnia- Primary Persistent disorder of initiating or maintaining sleep Psychophysiological insomnia- Primary Persistent disorder of initiating or maintaining sleep Chronic painful diabetic neuropathy (CMS/HCC) (HCC) Recurrent major depressive disorder, in remission (HCC) Coronary artery disease involving [place] coronary artery of [place] heart without angina pectoris Chronic painful diabetic neuropathy (CMS/HCC) (HCC)- Primary Essential hypertension Unspecified essential hypertension Psychophysiological insomnia Persistent disorder of initiating or maintaining sleep 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 Need for vaccination Need for prophylactic vaccination and inoculation against unspecified single disease Colon cancer screening Special screening for malignant neoplasms, colon Chronic painful diabetic neuropathy (CMS/HCC) (HCC) [facility] Nocturia Urinary retention Unspecified retention of urine Neurogenic bladder Neurogenic bladder, NOS Frequent UTI Urinary tract infection, site not specified documented in this encounter [facility] Work Phone: Evaluation note* Diagnosis Chronic painful diabetic neuropathy (CMS/HCC) (HCC)- Primary Chronic painful diabetic neuropathy (CMS/HCC) (HCC) Chronic painful diabetic neuropathy (CMS/HCC) (HCC)- Primary Screening for lipid disorders Need for hepatitis C screening test Special screening examination for other specified viral diseases Screening for HIV (human immunodeficiency virus) Special screening examination for other specified viral diseases Thyroid disorder screen Screening for thyroid disorder Chronic painful diabetic neuropathy (CMS/HCC) (HCC)- Primary Recurrent major depressive disorder, in remission (HCC) Coronary artery disease involving [place] coronary artery of [place] heart without angina pectoris Menopausal syndrome on hormone replacement therapy Colon cancer screening Special screening for malignant neoplasms, colon Encounter for screening mammogram for malignant neoplasm of breast Chronic painful diabetic neuropathy (CMS/HCC) (HCC)- Primary Menopausal syndrome on hormone replacement therapy Pain in both hands Need for vaccination Need for prophylactic vaccination and inoculation against unspecified single disease Chronic painful diabetic neuropathy (CMS/HCC) (HCC)- Primary Menopausal syndrome on hormone replacement therapy Encounter for monitoring opioid maintenance therapy Encounter for screening mammogram for malignant neoplasm of breast Colon cancer screening Special screening for malignant neoplasms, colon Chronic painful diabetic neuropathy (CMS/HCC) (HCC)- Primary Pain in both hands Encounter for screening mammogram for malignant neoplasm of breast Colon cancer screening Special screening for malignant neoplasms, colon Psychophysiological insomnia- Primary Persistent disorder of initiating or maintaining sleep Psychophysiological insomnia- Primary Persistent disorder of initiating or maintaining sleep Chronic painful diabetic neuropathy (CMS/HCC) (HCC) Recurrent major depressive disorder, in remission (HCC) Coronary artery disease involving [place] coronary artery of [place] heart without angina pectoris Chronic painful diabetic neuropathy (CMS/HCC) (HCC)- Primary Essential hypertension Unspecified essential hypertension Psychophysiological insomnia Persistent disorder of initiating or maintaining sleep 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 Need for vaccination Need for prophylactic vaccination and inoculation against unspecified single disease Colon cancer screening Special screening for malignant neoplasms, colon Chronic painful diabetic neuropathy (CMS/HCC) (HCC)- Primary Psychophysiological insomnia Persistent disorder of initiating or maintaining sleep Microalbuminuria Proteinuria 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 Screening cholesterol level Screening for lipoid disorders Encounter for screening mammogram for malignant neoplasm of breast Colon cancer screening Special screening for malignant neoplasms, colon [facility] Diagnosis Pre-op evaluation- Primary Preoperative examination, unspecified Type 1 diabetes mellitus with diabetic neuropathy (HCC) Type I (juvenile type) diabetes mellitus with neurological manifestations, not stated as uncontrolled Primary hypertension Unspecified essential hypertension Stage 3 chronic kidney disease, unspecified whether stage 3a or 3b CKD (HCC) 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 I (juvenile type) diabetes mellitus with neurological manifestations, not stated as uncontrolled 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) documented in this encounter [facility] note* Diagnosis Chronic painful diabetic neuropathy (CMS/HCC) (HCC)- Primary Chronic painful diabetic neuropathy (CMS/HCC) (HCC) Chronic painful diabetic neuropathy (CMS/HCC) (HCC)- Primary Screening for lipid disorders Need for hepatitis C screening test Special screening examination for other specified viral diseases Screening for HIV (human immunodeficiency virus) Special screening examination for other specified viral diseases Thyroid disorder screen Screening for thyroid disorder Chronic painful diabetic neuropathy (CMS/HCC) (HCC)- Primary Recurrent major depressive disorder, in remission (HCC) Coronary artery disease involving [place] coronary artery of [place] heart without angina pectoris Menopausal syndrome on hormone replacement therapy Colon cancer screening Special screening for malignant neoplasms, colon Encounter for screening mammogram for malignant neoplasm of breast Chronic painful diabetic neuropathy (CMS/HCC) (HCC)- Primary Menopausal syndrome on hormone replacement therapy Pain in both hands Need for vaccination Need for prophylactic vaccination and inoculation against unspecified single disease Chronic painful diabetic neuropathy (CMS/HCC) (HCC)- Primary Menopausal syndrome on hormone replacement therapy Encounter for monitoring opioid maintenance therapy Encounter for screening mammogram for malignant neoplasm of breast Colon cancer screening Special screening for malignant neoplasms, colon Chronic painful diabetic neuropathy (CMS/HCC) (HCC)- Primary Pain in both hands Encounter for screening mammogram for malignant neoplasm of breast Colon cancer screening Special screening for malignant neoplasms, colon Psychophysiological insomnia- Primary Persistent disorder of initiating or maintaining sleep Psychophysiological insomnia- Primary Persistent disorder of initiating or maintaining sleep Chronic painful diabetic neuropathy (CMS/HCC) (HCC) Recurrent major depressive disorder, in remission (HCC) Coronary artery disease involving [place] coronary artery of [place] heart without angina pectoris Chronic painful diabetic neuropathy (CMS/HCC) (HCC)- Primary Essential hypertension Unspecified essential hypertension Psychophysiological insomnia Persistent disorder of initiating or maintaining sleep 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 Need for vaccination Need for prophylactic vaccination and inoculation against unspecified single disease Colon cancer screening Special screening for malignant neoplasms, colon Chronic painful diabetic neuropathy (CMS/HCC) (HCC)- Primary Psychophysiological insomnia Persistent disorder of initiating or maintaining sleep Microalbuminuria 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 Screening cholesterol level Screening for lipoid disorders Encounter for screening mammogram for malignant neoplasm of breast Colon cancer screening Special screening for malignant neoplasms, colon Chronic painful diabetic neuropathy (CMS/HCC) (HCC) [facility] Diagnosis Chronic painful diabetic neuropathy (CMS/HCC) (HCC)- Primary Chronic painful diabetic neuropathy (CMS/HCC) (HCC) Chronic painful diabetic neuropathy (CMS/HCC) (HCC)- Primary Screening for lipid disorders Need for hepatitis C screening test Special screening examination for other specified viral diseases Screening for HIV (human immunodeficiency virus) Special screening examination for other specified viral diseases Thyroid disorder screen Screening for thyroid disorder Chronic painful diabetic neuropathy (CMS/HCC) (HCC)- Primary Recurrent major depressive disorder, in remission (HCC) Coronary artery disease involving [place] coronary artery of [place] heart without angina pectoris Menopausal syndrome on hormone replacement therapy Colon cancer screening Special screening for malignant neoplasms, colon Encounter for screening mammogram for malignant neoplasm of breast Chronic painful diabetic neuropathy (CMS/HCC) (HCC)- Primary Menopausal syndrome on hormone replacement therapy Pain in both hands Need for vaccination Need for prophylactic vaccination and inoculation against unspecified single disease Chronic painful diabetic neuropathy (CMS/HCC) (HCC)- Primary Menopausal syndrome on hormone replacement therapy Encounter for monitoring opioid maintenance therapy Encounter for screening mammogram for malignant neoplasm of breast Colon cancer screening Special screening for malignant neoplasms, colon Chronic painful diabetic neuropathy (CMS/HCC) (HCC)- Primary Pain in both hands Encounter for screening mammogram for malignant neoplasm of breast Colon cancer screening Special screening for malignant neoplasms, colon Psychophysiological insomnia- Primary Persistent disorder of initiating or maintaining sleep Psychophysiological insomnia- Primary Persistent disorder of initiating or maintaining sleep Chronic painful diabetic neuropathy (CMS/HCC) (HCC) Recurrent major depressive disorder, in remission (HCC) Coronary artery disease involving [place] coronary artery of [place] heart without angina pectoris Chronic painful diabetic neuropathy (CMS/HCC) (HCC)- Primary Essential hypertension Unspecified essential hypertension Psychophysiological insomnia Persistent disorder of initiating or maintaining sleep 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 Need for vaccination Need for prophylactic vaccination and inoculation against unspecified single disease Colon cancer screening Special screening for malignant neoplasms, colon Chronic painful diabetic neuropathy (CMS/HCC) (HCC)- Primary Psychophysiological insomnia Persistent disorder of initiating or maintaining sleep Microalbuminuria 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 Screening cholesterol level Screening for lipoid disorders Encounter for screening mammogram for malignant neoplasm of breast Colon cancer screening Special screening for malignant neoplasms, colon Psychophysiological insomnia Persistent disorder of initiating or maintaining sleep [facility] Diagnosis Chronic painful diabetic neuropathy (CMS/HCC) (HCC)- Primary Chronic painful diabetic neuropathy (CMS/HCC) (HCC) Chronic painful diabetic neuropathy (CMS/HCC) (HCC)- Primary Screening for lipid disorders Need for hepatitis C screening test Special screening examination for other specified viral diseases Screening for HIV (human immunodeficiency virus) Special screening examination for other specified viral diseases Thyroid disorder screen Screening for thyroid disorder Chronic painful diabetic neuropathy (CMS/HCC) (HCC)- Primary Recurrent major depressive disorder, in remission (HCC) Coronary artery disease involving [place] coronary artery of [place] heart without angina pectoris Menopausal syndrome on hormone replacement therapy Colon cancer screening Special screening for malignant neoplasms, colon Encounter for screening mammogram for malignant neoplasm of breast Chronic painful diabetic neuropathy (CMS/HCC) (HCC)- Primary Menopausal syndrome on hormone replacement therapy Pain in both hands Need for vaccination Need for prophylactic vaccination and inoculation against unspecified single disease Chronic painful diabetic neuropathy (CMS/HCC) (HCC)- Primary Menopausal syndrome on hormone replacement therapy Encounter for monitoring opioid maintenance therapy Encounter for screening mammogram for malignant neoplasm of breast Colon cancer screening Special screening for malignant neoplasms, colon Chronic painful diabetic neuropathy (CMS/HCC) (HCC)- Primary Pain in both hands Encounter for screening mammogram for malignant neoplasm of breast Colon cancer screening Special screening for malignant neoplasms, colon Psychophysiological insomnia- Primary Persistent disorder of initiating or maintaining sleep Psychophysiological insomnia- Primary Persistent disorder of initiating or maintaining sleep Chronic painful diabetic neuropathy (CMS/HCC) (HCC) Recurrent major depressive disorder, in remission (HCC) Coronary artery disease involving [place] coronary artery of [place] heart without angina pectoris Chronic painful diabetic neuropathy (CMS/HCC) (HCC)- Primary Essential hypertension Unspecified essential hypertension Psychophysiological insomnia Persistent disorder of initiating or maintaining sleep 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 Need for vaccination Need for prophylactic vaccination and inoculation against unspecified single disease Colon cancer screening Special screening for malignant neoplasms, colon Chronic painful diabetic neuropathy (CMS/HCC) (HCC)- Primary Psychophysiological insomnia Persistent disorder of initiating or maintaining sleep Microalbuminuria Proteinuria 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 Screening cholesterol level Screening for lipoid disorders Encounter for screening mammogram for malignant neoplasm of breast Colon cancer screening Special screening for malignant neoplasms, colon Psychophysiological insomnia Persistent disorder of initiating or maintaining sleep [facility] Diagnosis Chronic painful diabetic neuropathy (CMS/HCC) (HCC)- Primary Chronic painful diabetic neuropathy (CMS/HCC) (HCC) Chronic painful diabetic neuropathy (CMS/HCC) (HCC)- Primary Screening for lipid disorders Need for hepatitis C screening test Special screening examination for other specified viral diseases Screening for HIV (human immunodeficiency virus) Special screening examination for other specified viral diseases Thyroid disorder screen Screening for thyroid disorder Chronic painful diabetic neuropathy (CMS/HCC) (HCC)- Primary Recurrent major depressive disorder, in remission (HCC) Coronary artery disease involving [place] coronary artery of [place] heart without angina pectoris Menopausal syndrome on hormone replacement therapy Colon cancer screening Special screening for malignant neoplasms, colon Encounter for screening mammogram for malignant neoplasm of breast Chronic painful diabetic neuropathy (CMS/HCC) (HCC)- Primary Menopausal syndrome on hormone replacement therapy Pain in both hands Need for vaccination Need for prophylactic vaccination and inoculation against unspecified single disease Chronic painful diabetic neuropathy (CMS/HCC) (HCC)- Primary Menopausal syndrome on hormone replacement therapy Encounter for monitoring opioid maintenance therapy Encounter for screening mammogram for malignant neoplasm of breast Colon cancer screening Special screening for malignant neoplasms, colon Chronic painful diabetic neuropathy (CMS/HCC) (HCC)- Primary Pain in both hands Encounter for screening mammogram for malignant neoplasm of breast Colon cancer screening Special screening for malignant neoplasms, colon Psychophysiological insomnia- Primary Persistent disorder of initiating or maintaining sleep Psychophysiological insomnia- Primary Persistent disorder of initiating or maintaining sleep Chronic painful diabetic neuropathy (CMS/HCC) (HCC) Recurrent major depressive disorder, in remission (HCC) Coronary artery disease involving [place] coronary artery of [place] heart without angina pectoris Chronic painful diabetic neuropathy (CMS/HCC) (HCC)- Primary Essential hypertension Unspecified essential hypertension Psychophysiological insomnia Persistent disorder of initiating or maintaining sleep 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 Need for vaccination Need for prophylactic vaccination and inoculation against unspecified single disease Colon cancer screening Special screening for malignant neoplasms, colon Chronic painful diabetic neuropathy (CMS/HCC) (HCC)- Primary Psychophysiological insomnia Persistent disorder of initiating or maintaining sleep Microalbuminuria Proteinuria 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 Screening cholesterol level Screening for lipoid disorders Encounter for screening mammogram for malignant neoplasm of breast Colon cancer screening Special screening for malignant neoplasms, colon documented [facility]* Diagnosis Chronic painful diabetic neuropathy (CMS/HCC) (HCC)- Primary Chronic painful diabetic neuropathy (CMS/HCC) (HCC) Chronic painful diabetic neuropathy (CMS/HCC) (HCC)- Primary Screening for lipid disorders Need for hepatitis C screening test Special screening examination for other specified viral diseases Screening for HIV (human immunodeficiency virus) Special screening examination for other specified viral diseases Thyroid disorder screen Screening for thyroid disorder Chronic painful diabetic neuropathy (CMS/HCC) (HCC)- Primary Recurrent major depressive disorder, in remission (HCC) Coronary artery disease involving [place] coronary artery of [place] heart without angina pectoris Menopausal syndrome on hormone replacement therapy Colon cancer screening Special screening for malignant neoplasms, colon Encounter for screening mammogram for malignant neoplasm of breast Chronic painful diabetic neuropathy (CMS/HCC) (HCC)- Primary Menopausal syndrome on hormone replacement therapy Pain in both hands Need for vaccination Need for prophylactic vaccination and inoculation against unspecified single disease Chronic painful diabetic neuropathy (CMS/HCC) (HCC)- Primary Menopausal syndrome on hormone replacement therapy Encounter for monitoring opioid maintenance therapy Encounter for screening mammogram for malignant neoplasm of breast Colon cancer screening Special screening for malignant neoplasms, colon Chronic painful diabetic neuropathy (CMS/HCC) (HCC)- Primary Pain in both hands Encounter for screening mammogram for malignant neoplasm of breast Colon cancer screening Special screening for malignant neoplasms, colon Psychophysiological insomnia- Primary Persistent disorder of initiating or maintaining sleep Psychophysiological insomnia- Primary Persistent disorder of initiating or maintaining sleep Chronic painful diabetic neuropathy (CMS/HCC) (HCC) Recurrent major depressive disorder, in remission (HCC) Coronary artery disease involving [place] coronary artery of [place] heart without angina pectoris Chronic painful diabetic neuropathy (CMS/HCC) (HCC)- Primary Essential hypertension Unspecified essential hypertension Psychophysiological insomnia Persistent disorder of initiating or maintaining sleep 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 Need for vaccination Need for prophylactic vaccination and inoculation against unspecified single disease Colon cancer screening Special screening for malignant neoplasms, colon Chronic painful diabetic neuropathy (CMS/HCC) (HCC)- Primary Psychophysiological insomnia Persistent disorder of initiating or maintaining sleep Microalbuminuria 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 Screening cholesterol level Screening for lipoid disorders Encounter for screening mammogram for malignant neoplasm of breast Colon cancer screening Special screening for malignant neoplasms, colon Chronic painful diabetic neuropathy (CMS/HCC) (HCC)- Primary Acute on chronic renal insufficiency Acute kidney failure, unspecified Screen for colon cancer Special screening for malignant neoplasms, colon [facility] Diagnosis Frequent UTI Urinary tract infection, site not specified Neurogenic bladder Neurogenic bladder, NOS Nocturia documented in this encounter [facility] Work Phone: Evaluation note* Diagnosis Chronic painful diabetic neuropathy (CMS/HCC) (HCC)- Primary Chronic painful diabetic neuropathy (CMS/HCC) (HCC) Chronic painful diabetic neuropathy (CMS/HCC) (HCC)- Primary Screening for lipid disorders Need for hepatitis C screening test Special screening examination for other specified viral diseases Screening for HIV (human immunodeficiency virus) Special screening examination for other specified viral diseases Thyroid disorder screen Screening for thyroid disorder Chronic painful diabetic neuropathy (CMS/HCC) (HCC)- Primary Recurrent major depressive disorder, in remission (HCC) Coronary artery disease involving [place] coronary artery of [place] heart without angina pectoris Menopausal syndrome on hormone replacement therapy Colon cancer screening Special screening for malignant neoplasms, colon Encounter for screening mammogram for malignant neoplasm of breast Chronic painful diabetic neuropathy (CMS/HCC) (HCC)- Primary Menopausal syndrome on hormone replacement therapy Pain in both hands Need for vaccination Need for prophylactic vaccination and inoculation against unspecified single disease Chronic painful diabetic neuropathy (CMS/HCC) (HCC)- Primary Menopausal syndrome on hormone replacement therapy Encounter for monitoring opioid maintenance therapy Encounter for screening mammogram for malignant neoplasm of breast Colon cancer screening Special screening for malignant neoplasms, colon Chronic painful diabetic neuropathy (CMS/HCC) (HCC)- Primary Pain in both hands Encounter for screening mammogram for malignant neoplasm of breast Colon cancer screening Special screening for malignant neoplasms, colon Psychophysiological insomnia- Primary Persistent disorder of initiating or maintaining sleep Psychophysiological insomnia- Primary Persistent disorder of initiating or maintaining sleep Chronic painful diabetic neuropathy (CMS/HCC) (HCC) Recurrent major depressive disorder, in remission (HCC) Coronary artery disease involving [place] coronary artery of [place] heart without angina pectoris Chronic painful diabetic neuropathy (CMS/HCC) (HCC)- Primary Essential hypertension Unspecified essential hypertension Psychophysiological insomnia Persistent disorder of initiating or maintaining sleep 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 Need for vaccination Need for prophylactic vaccination and inoculation against unspecified single disease Colon cancer screening Special screening for malignant neoplasms, colon Chronic painful diabetic neuropathy (CMS/HCC) (HCC)- Primary Psychophysiological insomnia Persistent disorder of initiating or maintaining sleep Microalbuminuria 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 Screening cholesterol level Screening for lipoid disorders Encounter for screening mammogram for malignant neoplasm of breast Colon cancer screening Special screening for malignant neoplasms, colon Chronic painful diabetic neuropathy (CMS/HCC) (HCC)- Primary Acute on chronic renal insufficiency Acute kidney failure, unspecified Screen for colon cancer Special screening for malignant neoplasms, colon Chronic painful diabetic neuropathy (CMS/HCC) ([facility]) Psychophysiological insomnia Persistent disorder of initiating or maintaining sleep documented in [facility] N[facility]. HX OF FREQUENT UTIS AND BLADDER INFECTIONS. SHE RECENTLYCOMPLETED ANTIBX. SHE HAS A NGB FROM [facility] AND HAS TO DO CIC. HAS OCCASIONAL FREQUENCY AND URGENCY IN THE MORNING. . DENIES HEMATURIA. NOCTURIA X [id number] Work Phone: History of Present illness Narrative* Gavin Otto MD - 04/07/2025 8:45 AM EDT Virtual or Telephone Consent An interactive audio and video telecommunication system which permits real time communications between the patient (at the originating site) and provider (at the distant site) was utilized to providethis telehealth service. Verbal consent was requested and obtained from Jael Benson on this date, 04/07/25 for a telehealth visit and the patient's location was confirmed at the time of the visit. Subjective Patient ID: Jael Benson is a 59 y.o. female. HPI Patient is her to discuss renal function. Recent BMP from 04/21 BUN 32, Cr 1.57. Previous from 03/21 BUN 41, Cr 2.21(was dehydrated)... A renal U/S 2022 showed mild Newport with no stones. hx of recurrent UTI'S. No recent sx. Patient does CIC 4-5x. .She does urinate small amounts on her own at times. She is taking Macrodantin MWF. Cysto 04/19 showed mild trabeculation. Review of Systems Constitutional: Negative for chills and fever. HENT: Negative. Eyes: Negative. Respiratory: Negative for cough and shortness of breath. Cardiovascular: Negative for chest pain and leg swelling. Gastrointestinal: Negative for nausea. Endocrine: Negative. Genitourinary: Negative for difficulty urinating. Negative except for documented in HPI Allergic/Immunologic: Negative. Neurological: Alert & oriented X 3 Hematological: Denies blood thinners Psychiatric/Behavioral: Negative. Objective Physical Exam No PE done given the virtual nature of visit. Assessment/Plan Diagnoses and all orders for this visit: Frequent UTI Neurogenic bladder Nocturia Treatment options for LUTS reviewed Discussed timed voiding. Discussed fluid and caffeine intake Lifestyle change to help prevent UTIs discussed. Encouraged fluid intake. UA ordered-Change prophylaxis to Trimethoprim. Rx given BMP reviewed x 2 Past renal U/S reviewed-Repeat ordered given Hx of mild Newport on previous F/u 3 months with labs and [facility]al U/[facility] Reason for referral (narrative)* Diagnostic Procedure Only (Routine) - New Request Specialty Diagnoses / Procedures Referred By Orion t Referred To Contact US IMAGING Diagnoses Type 1 diabetes mellitus with diabetic polyneuropathy (HCC) Procedures US THYROID/PARATHYROID US SOFT TISSUE HEAD & NECK REAL TIME IMGE ABDIEL Frances, Heraclio Hernandez MD [address] [id number] [facility] [place] [address] Referral ID Status Reason Start Date Expiration Date Visits Requested Visits Authorized [id number] New Request Auto-Generat ed Referral 4 08/16/2025 1 1 [facility] Advance Directives Documents on File Type Date Recorded 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 Expl anation Advance Directives and Living Will Power of Worm Farmer Documents on File Type Date Recorded 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 Expl anation ACP-Advance Directive ACP-Power of Worm Farmer Assessments Diagnosis Essential hypertension Unspecified essential hypertension 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 I (juvenile type) diabetes mellitus with neurological manifestations, not stated as uncontrolled Chronic painful diabetic neuropathy (HCC) Encounter for monitoring opioid maintenance therapy Encounter for therapeutic drug monitoring Diagnosis Essential hypertension Unspecified essential hypertension Type 1 diabetes mellitus with stage 3 chronic kidney disease (HCC) Type I (juvenile type) diabetes mellitus with renal manifestations, not stated as uncontrolled Diagnosis Encounter for monitoring opioid maintenance therapy Encounter for therapeutic drug monitoring Summary Purpose Family History No Family History Records FoundNo Family History Records FoundNo Family History Records FoundNo Family History Records FoundNo Family History Records FoundNo Family History Records FoundNo Family History Records FoundNo Family History Records FoundNo Family History Records FoundNo Family History Records FoundNo Family History Records FoundNo Family History Records FoundNo Family History Records Found Reason for Referral Specialty Diagnoses / Procedures Referred By Contac t Referred To Contact MR IMAGING Diagnoses Radiculopathy of lumbar region Procedures MRI LUMBAR SPINE WO IVCON MRI SPINAL CANAL LUMBAR W/O CONTRAST MATERIAL Gavin Cruz PA-C [address] [place] [address] Mr Imaging Referral ID Status Reason Start Date Expiration Date V isits Requested Visits Authorized [id number] Closed Auto-Generate d Referral 04/29/2022 06/17/2022 1 1 Specialty Diagnoses / Procedures Referred By Contac t Referred To Contact MR IMAGING Diagnoses Radiculopathy of lumbar region Procedures MRI THORACIC SPINE WO IVCON MRI SPINAL CANAL THORACIC W/O CONTRAST MATRL Gavin Cruz PA-C [address] [place] [address] Mr Imaging Referral ID Status Reason Start Date Expiration Date V isits Requested Visits Authorized [id number] Closed Auto-Generate d Referral 04/29/2022 06/17/2022 1 1 Specialty Diagnoses / Procedures Referred By Contac t Referred To Contact Psychology Diagnoses Numbness and tingling in both hands Procedures CONSULT TO PSYCHOLOGY OFFICE/OUTPATIENT [facility] 60-74 MINUTES Alban Batres PA-C [address] [place] [address] Referral ID Status Reason Start Date Expiration Date Visits Requested Visits Authorized [id number] Pending Review PCP Requested Referral 07/08/2023 1 1 Specialty Diagnoses / Procedures Referred By Contac t Referred To Contact Orthopedics Diagnoses Bilateral carpal tunnel syndrome Procedures CONSULT TO ORTHOPAEDICS OFFICE/OUTPATIENT [facility] 60-74 MINUTES Alban Batres PA-C [address] [place] [address] Referral ID Status Reason Start Date Expiration Date Visits Requested Visits Authorized [id number] Authorized PCP Requested Referral 2 07/08/2023 1 1 Specialty Diagnoses / Procedures Referred By Contac t Referred To Contact Pain Management Diagnoses Radiculopathy of lumbar region Procedures CONSULT TO PAIN MGT OFFICE/OUTPATIENT [facility] 60-74 MINUTES Alban Batres PA-C [address] [place] [address] Referral ID Status Reason Start Date Expiration Date Visits Requested Visits Authorized [id number] Authorized PCP Requested Referral 11/10/2022 11/10/2023 1 1 Specialty Diagnoses / Procedures Referred By Contac t Referred To Contact Diagnoses Chronic painful diabetic neuropathy (CMS/HCC) (HCC) Loc Jones, [address] [address] Referral ID Status Reason Start Date Expiration Date Visits Re quested Visits Authorized [id number] Closed 1 1 Specialty Diagnoses / Procedures Referred By Contac t Referred To Contact Psychology Diagnoses Diabetic peripheral neuropathy (HCC) Procedures CONSULT TO PSYCHOLOGY OFFICE/OUTPATIENT [facility] 60 MINUTES Loc Hdez MD [facility] [place] [address] Referral ID Status Reason Start Date Expiration Date Visits Requested Visits Authorized [id number] Pending Review PCP Requested Referral 04/24/2024 04/24/2025 1 1 Specialty Diagnoses / Procedures Referred By Contac t Referred To Contact Diagnoses Chronic painful diabetic neuropathy (CMS/HCC) (HCC) Niecy Addison, DO [address] [place] [id number] Referral ID Status Reason Start Date Expiration Date V isits Requested Visits Authorized [id number] Authorized 12/27/2023 01/25/2025 1 1 Health Concerns Infection Onset Date Last Indicated Resolved Time COVID-19 Rule-Out 08/25/2022 08/25/2022 08/26/2022 7:35 AM EST Chief Complaint NPV-EST CARENPV-EST CARE Additional Source Comments Care Teams (unrecognized sec tion and content) Store Assistant Relationship Specialty Start Date End Date Niecy Addison, DO [address] [place] [address] PCP - General Family Medicine 05/21/20 Store Assistant Relationship Specialty Start Date End Date Niecy Addison DO [address] [place] [address] PCP - General Family Medicine 05/21/20 Store Assistant Relationship Specialty Start Date End Date Niecy Addison, DO [address] [place] [address] PCP - General Family Medicine 05/21/20 Store Assistant Relationship Specialty Start Date End Date Deep Tsang PCP - General 11/09/06 Store Assistant Relationship Specialty Start Date End Date Niecy Addison DO [address] [place] [address] PCP - General Family Medicine 05/21/20 Store Assistant Relationship Specialty Start Date End Date Niecy Addison DO [address] [place] [address] PCP - General Family Medicine 05/21/20 Store Assistant Relationship Specialty Start Date End Date Niecy Addison DO [address] [place] [address] PCP - General Family Medicine 05/21/20 Store Assistant Relationship Specialty Start Date End Date Niecy Addison MD [address] [place] [address] PCP - General Family Medicine 12/17/21 Store Assistant Relationship Specialty Start Date End Date Niecy Addison MD [address] [place] [address] PCP - General Family Medicine 12/17/21 Store Assistant Relationship Specialty Start Date End Date Niecy Addison DO [address] [place] [address] PCP - General Family Medicine 05/21/20 Store Assistant Relationship Specialty Start Date End Date Niecy Addison MD [address] [place] [address] PCP - General Family Medicine 12/17/21 Store Assistant Relationship Specialty Start Date End Date Niecy Addison MD [address] [place] [address] PCP - General Family Medicine 12/17/21 Store Assistant Relationship Specialty Start Date End Date Niecy Addison MD [address] [place] [address] PCP - General Family Medicine 12/17/21 Store Assistant Relationship Specialty Start Date End Date Niecy Addison MD [address] [place] [address] PCP - General Family Medicine 12/17/21 Store Assistant Relationship Specialty Start Date End Date Niecy Addison MD [address] [facility] [place] [address] PCP - General Family Medicine 12/17/21 Store Assistant Relationship Specialty Start Date End Date Niecy Addison MD [address] [place] [address] PCP - General Family Medicine 12/17/21 Store Assistant Relationship Specialty Start Date End Date Niecy Addison MD [address] [place] [address] PCP - General Family Medicine 12/17/21 Store Assistant Relationship Specialty Start Date End Date Niecy Addison MD [address] [place] [address] PCP - General Family Medicine 12/17/21 Store Assistant Relationship Specialty Start Date End Date Niecy Addison MD [address] [place] [address] PCP - General Family Medicine 12/17/21 Store Assistant Relationship Specialty Start Date End Date Niecy Addison MD [address] [place] [address] PCP - General Family Medicine 12/17/21 Store Assistant Relationship Specialty Start Date End Date Niecy Addison DO [address] [place] [address] PCP - General 05/21/20 Store Assistant Relationship Specialty Start Date End Date Niecy Addison DO [address] [place] [address] PCP - General 05/21/20 Store Assistant Relationship Specialty Start Date End Date Niecy Addison DO [address] [place] [address] PCP - General 05/21/20 Store Assistant Relationship Specialty Start Date End Date Niecy Addison DO [address] [place] [address] PCP - General 05/21/20 Store Assistant Relationship Specialty Start Date End Date Niecy Addison DO [address] [place] [address] PCP - General 05/21/20 Store Assistant Relationship Specialty Start Date End Date Niecy Addison DO [address] [place] [address] PCP - General 05/21/20 Store Assistant Relationship Specialty Start Date End Date Niecy Addison DO [address] [place] [address] PCP - General 05/21/20 Store Assistant Relationship Specialty Start Date End Date Niecy Addison MD [address] [place], [place] [id number] PCP - General Family Medicine 12/17/21 Store Assistant Relationship Specialty Start Date End Date Niecy Addison DO [address] [place] [address] PCP - General 05/21/20 Store Assistant Relationship Specialty Start Date End Date Titi Mallory PA-C [address] [place] [address] [place] [address] PCP - General Internal Medicine 03/21/23 Store Assistant Relationship Specialty Start Date End Date Niecy Addison DO [address] [place] [address] PCP - General 05/21/20 Store Assistant Relationship Specialty Start Date End Date Niecy Addison DO [address] [place] [address] PCP - General 05/21/20 Store Assistant Relationship Specialty Start Date End Date Deep Tsang PCP - General 11/09/06 Store Assistant Relationship Specialty Start Date End Date Niecy Addison DO [address] [place] [address] PCP - General 05/21/20 Store Assistant Relationship Specialty Start Date End Date Niecy Addison DO [address] [place] [address] PCP - General 05/21/20 Store Assistant Relationship Specialty Start Date End Date Niecy Addison DO [address] [place] [address] PCP - General 05/21/20 Store Assistant Relationship Specialty Start Date End Date Niecy Addison DO [address] [place] [address] PCP - General 05/21/20 Store Assistant Relationship Specialty Start Date End Date Niecy Addison MD [address] [facility] [place] [address] PCP - General Family Medicine 12/17/21 Store Assistant Relationship Specialty Start Date End Date Niecy Addiosn DO [address] [place] [address] PCP - General 05/21/20 Store Assistant Relationship Specialty Start Date End Date Niecy Addison DO [address] [place] [address] PCP - General 05/21/20 Store Assistant Relationship Specialty Start Date End Date Niecy Addison MD [address] [place] [address] PCP - General Family Medicine 12/17/21 Store Assistant Relationship Specialty Start Date End Date Niecy Addison DO [address] [place] [address] PCP - General 05/21/20 Store Assistant Relationship Specialty Start Date End Date Niecy Addison MD [address] [place] [address] PCP - General Family Medicine 12/17/21 Store Assistant Relationship Specialty Start Date End Date Niecy Addison DO [address] [place] [address] PCP - General 05/21/20 Store Assistant Relationship Specialty Start Date End Date Niecy Addison MD [address] [place] [address] PCP - General Family Medicine 12/17/21 Store Assistant Relationship Specialty Start Date End Date Niecy Addison DO [address] [place] [address] PCP - General 05/21/20 Store Assistant Relationship Specialty Start Date End Date Niecy Addison DO [address] [place] [address] PCP - General 05/21/20 Store Assistant Relationship Specialty Start Date End Date Niecy Addison MD [address] [place], [place] [phone] PCP - General Family Medicine 12/17/21 Store Assistant Relationship Specialty Start Date End Date Niecy Addison MD [address] [place], [place] [phone] PCP - General Family Medicine 12/17/21 Store Assistant Relationship Specialty Start Date End Date Niecy Addison DO [address] [place] [address] PCP - General 05/21/20 Store Assistant Relationship Specialty Start Date End Date Niecy Addison DO [address] [place] [address] PCP - General 05/21/20 Store Assistant Relationship Specialty Start Date End Date Niecy Addison MD [address] [place] [address] PCP - General Family Medicine 12/17/21 Store Assistant Relationship Specialty Start Date End Date Niecy Addison MD [address] [place] [address] PCP - General Family Medicine 12/17/21 Store Assistant Relationship Specialty Start Date End Date Niecy Addison MD [address] [place] [address] PCP - General Family Medicine 12/17/21 Store Assistant Relationship Specialty Start Date End Date Niecy Addison DO [address] [place] [address] PCP - General 05/21/20 Store Assistant Relationship Specialty Start Date End Date Niecy Addison DO [address] [place] [address] PCP - General 05/21/20 Store Assistant Relationship Specialty Start Date End Date Niecy Addison DO [address] [place] [address] PCP - General 05/21/20 Store Assistant Relationship Specialty Start Date End Date Niecy Addison DO [address] [place] [address] PCP - General 05/21/20 Store Assistant Relationship Specialty Start Date End Date Niecy Addison DO [address] [place] [address] PCP - General 05/21/20 Store Assistant Relationship Specialty Start Date End Date Niecy Addison DO [address] [facility] [address] [place] [address] PCP - General 05/21/20 Store Assistant Relationship Specialty Start Date End Date Niecy Addison DO [address] [facility] [address] [place] [address] PCP - General 05/21/20 Store Assistant Relationship Specialty Start Date End Date Niecy Addison DO [address] [facility] [address] [place] [address] PCP - General 05/21/20 Store Assistant Relationship Specialty Start Date End Date Niecy Addison DO [address] [facility] [address] [place] [address] PCP - General 05/21/20 Store Assistant Relationship Specialty Start Date End Date Titi Mallory PA-C [address] [facility] [place] [address] PCP - General Internal Medicine 03/21/23 Store Assistant Relationship Specialty Start Date End Date Niecy Addison DO [address] [place] [address] PCP - General 05/21/20 Store Assistant Relationship Specialty Start Date End Date Niecy Addison MD [address] [place], [place] [phone] PCP - General Family Medicine 12/17/21 Store Assistant Relationship Specialty Start Date End Date Niecy Addison DO [address] [place] [address] PCP - General 05/21/20 Store Assistant Relationship Specialty Start Date End Date Niecy Addison DO [address] [place] [address] PCP - General 05/21/20 Store Assistant Relationship Specialty Start Date End Date Niecy Addison DO [address] [place] [address] PCP - General 05/21/20 Store Assistant Relationship Specialty Start Date End Date Niecy Addison DO [address] [place] [address] PCP - General 05/21/20 Store Assistant Relationship Specialty Start Date End Date Niecy Addison DO [address] [place] [address] PCP - General 05/21/20 Store Assistant Relationship Specialty Start Date End Date Niecy Addison DO [address] [place] [address] PCP - General 05/21/20 Store Assistant Relationship Specialty Start Date End Date Titi Mallory PA-C [address] [facility] [place] [address] PCP - General Internal Medicine 03/21/23 Store Assistant Relationship Specialty Start Date End Date Niecy Addison DO [address] [place] [address] PCP - General 05/21/20 INFORMATION SOURCE (unrecogn ized section and content) DATE CREATED AUTHOR 03/22/2022 [facility] DATE CREATED AUTHOR AUTHOR'S ORGANIZ ATION 06/19/2022 [facility] DATE CREATED AUTHOR AUTHOR'S ORGANIZ ATION 09/23/2022 [facility] DATE CREATED AUTHOR AUTHOR'S ORGANIZ ATION 03/24/2023 [facility] DATE CREATED AUTHOR AUTHOR'S ORGANIZ ATION 04/07/2023 [facility] DATE CREATED AUTHOR AUTHOR'S ORGANIZ ATION 04/14/2023 [facility] DATE CREATED AUTHOR AUTHOR'S ORGANIZ ATION 04/14/2023 [facility] DATE CREATED AUTHOR AUTHOR'S ORGANIZ ATION 04/17/2023 [facility] DATE CREATED AUTHOR AUTHOR'S ORGANIZ ATION 02/21/2024 [facility] DATE CREATED AUTHOR AUTHOR'S ORGANIZ ATION 07/29/[address] [facility] DATE CREATED AUTHOR AUTHOR'S ORGANIZ ATION 04/07/2025 [facility] DATE CREATED AUTHOR AUTHOR'S ORGANIZ ATION 04/07/2025 [facility] DATE CREATED AUTHOR AUTHOR'S ORGANIZ ATION 04/22/2025 [facility] Source Comments (unrecognize d section and content) In the event this informatio n is protected by the Federal Confidentiality of Alcohol and Drug Abuse Patient Records regulations: The Federal rules restrict any use of the information to criminally investigate or prosecute any alcohol or drug abuse patient.[facility] Center[facility] the event this information is protected by the Federal Confidentiality of Alcohol and Drug Abuse Patient Records regulations: The Federal rules restrict any use of the information to criminally investigate or prosecute any alcohol or drug abuse patient.[facility] Center[facility] the event this information is protected by the Federal Confidentiality of Alcohol and Drug Abuse Patient Records regulations: The Federal rules restrict any use of the information to criminally investigate or prosecute any alcohol or drug abuse patient.[facility] CenterIn the event this information is protected by the Federal Confidentiality of Alcohol and Drug Abuse Patient Records regulations: The Federal rules restrict any use of the information to criminally investigate or prosecute any alcohol or drug abuse patient.[facility] CenterIn the event this information is protected by the Federal Confidentiality of Alcohol and Drug Abuse Patient Records regulations: The Federal rules restrict any use of the information to criminally investigate or prosecute any alcohol or drug abuse patient.[facility] CenterIn the event this information is protected by the Federal Confidentiality of Alcohol and Drug Abuse Patient Records regulations: The Federal rules restrict any use of the information to criminally investigate or prosecute any alcohol or drug abuse patient.[facility] CenterIn the event this information is protected by the Federal Confidentiality of Alcohol and Drug Abuse Patient Records regulations: The Federal rules restrict any use of the information to criminally investigate or prosecute any alcohol or drug abuse patient.[facility] CenterIn the event this information is protected by the Federal Confidentiality of Alcohol and Drug Abuse Patient Records regulations: The Federal rules restrict any use of the information to criminally investigate or prosecute any alcohol or drug abuse patient.[facility] CenterIn the event this information is protected by the Federal Confidentiality of Alcohol and Drug Abuse Patient Records regulations: The Federal rules restrict any use of the information to criminally investigate or prosecute any alcohol or drug abuse patient.[facility] CenterIn the event this information is protected by the Federal Confidentiality of Alcohol and Drug Abuse Patient Records regulations: The Federal rules restrict any use of the information to criminally investigate or prosecute any alcohol or drug abuse patient.[facility] CenterIn the event this information is protected by the Federal Confidentiality of Alcohol and Drug Abuse Patient Records regulations: The Federal rules restrict any use of the information to criminally investigate or prosecute any alcohol or drug abuse patient.[facility] CenterIn the event this information is protected by the Federal Confidentiality of Alcohol and Drug Abuse Patient Records regulations: The Federal rules restrict any use of the information to criminally investigate or prosecute any alcohol or drug abuse patient.[facility] CenterIn the event this information is protected by the Federal Confidentiality of Alcohol and Drug Abuse Patient Records regulations: The Federal rules restrict any use of the information to criminally investigate or prosecute any alcohol or drug abuse patient.[facility] CenterIn the event this information is protected by the Federal Confidentiality of Alcohol and Drug Abuse Patient Records regulations: The Federal rules restrict any use of the information to criminally investigate or prosecute any alcohol or drug abuse patient.[facility] CenterIn the event this information is protected by the Federal Confidentiality of Alcohol and Drug Abuse Patient Records regulations: The Federal rules restrict any use of the information to criminally investigate or prosecute any alcohol or drug abuse patient.[facility] CenterIn the event this information is protected by the Federal Confidentiality of Alcohol and Drug Abuse Patient Records regulations: The Federal rules restrict any use of the information to criminally investigate or prosecute any alcohol or drug abuse patient.[facility] CenterIn the event this information is protected by the Federal Confidentiality of Alcohol and Drug Abuse Patient Records regulations: The Federal rules restrict any use of the information to criminally investigate or prosecute any alcohol or drug abuse patient.[facility] CenterIn the event this information is protected by the Federal Confidentiality of Alcohol and Drug Abuse Patient Records regulations: The Federal rules restrict any use of the information to criminally investigate or prosecute any alcohol or drug abuse patient.[facility] CenterIn the event this information is protected by the Federal Confidentiality of Alcohol and Drug Abuse Patient Records regulations: The Federal rules restrict any use of the information to criminally investigate or prosecute any alcohol or drug abuse patient.[facility] CenterIn the event this information is protected by the Federal Confidentiality of Alcohol and Drug Abuse Patient Records regulations: The Federal rules restrict any use of the information to criminally investigate or prosecute any alcohol or drug abuse patient.[facility] CenterIn the event this information is protected by the Federal Confidentiality of Alcohol and Drug Abuse Patient Records regulations: The Federal rules restrict any use of the information to criminally investigate or prosecute any alcohol or drug abuse patient.[facility] CenterIn the event this information is protected by the Federal Confidentiality of Alcohol and Drug Abuse Patient Records regulations: The Federal rules restrict any use of the information to criminally investigate or prosecute any alcohol or drug abuse patient.[facility] CenterIn the event this information is protected by the Federal Confidentiality of Alcohol and Drug Abuse Patient Records regulations: The Federal rules restrict any use of the information to criminally investigate or prosecute any alcohol or drug abuse patient.[facility] CenterIn the event this information is protected by the Federal Confidentiality of Alcohol and Drug Abuse Patient Records regulations: The Federal rules restrict any use of the information to criminally investigate or prosecute any alcohol or drug abuse patient.[facility] CenterIn the event this information is protected by the Federal Confidentiality of Alcohol and Drug Abuse Patient Records regulations: The Federal rules restrict any use of the information to criminally investigate or prosecute any alcohol or drug abuse patient.[facility] CenterIn the event this information is protected by the Federal Confidentiality of Alcohol and Drug Abuse Patient Records regulations: The Federal rules restrict any use of the information to criminally investigate or prosecute any alcohol or drug abuse patient.[facility] CenterIn the event this information is protected by the Federal Confidentiality of Alcohol and Drug Abuse Patient Records regulations: The Federal rules restrict any use of the information to criminally investigate or prosecute any alcohol or drug abuse patient.[facility] CenterIn the event this information is protected by the Federal Confidentiality of Alcohol and Drug Abuse Patient Records regulations: The Federal rules restrict any use of the information to criminally investigate or prosecute any alcohol or drug abuse patient.[facility] CenterIn the event this information is protected by the Federal Confidentiality of Alcohol and Drug Abuse Patient Records regulations: The Federal rules restrict any use of the information to criminally investigate or prosecute any alcohol or drug abuse patient.[facility] CenterIn the event this information is protected by the Federal Confidentiality of Alcohol and Drug Abuse Patient Records regulations: The Federal rules restrict any use of the information to criminally investigate or prosecute any alcohol or drug abuse patient.[facility] CenterIn the event this information is protected by the Federal Confidentiality of Alcohol and Drug Abuse Patient Records regulations: The Federal rules restrict any use of the information to criminally investigate or prosecute any alcohol or drug abuse patient.[facility] CenterIn the event this information is protected by the Federal Confidentiality of Alcohol and Drug Abuse Patient Records regulations: The Federal rules restrict any use of the information to criminally investigate or prosecute any alcohol or drug abuse patient.[facility] Reason for Visit (unrecogniz ed section and content) Reason Onset Date Comments EMG 07/01/2022 Specialty Diagnoses / Procedures Referred By Contac t Referred To Contact [facility] Diagnoses Weakness Procedures EMG(NEURO/NI) NERVE CONDUCTION STUDIES 9-10 STUDIES Gavin Cruz PA-C [address] [place] [address] [facility] [place] [address] [place] [address] Referral ID Status Reason Start Date Expiration Date V isits Requested Visits Authorized [id number] Closed Auto-Generate d Referral 04/29/2022 04/29/2023 1 1 Specialty Diagnoses / Procedures Referred By Contac t Referred To Contact [facility] Diagnoses Radiculopathy of lumbar region Procedures MRI LUMBAR SPINE WO IVCON MRI SPINAL CANAL LUMBAR W/O CONTRAST MATERIAL Gavin Cruz PA-C [address] [place] [address] Mr Imaging Referral ID Status Reason Start Date Expiration Date V isits Requested Visits Authorized [id number] Closed Auto-Generate d Referral 04/29/2022 06/17/2022 1 1 Specialty Diagnoses / Procedures Referred By Contac t Referred To Contact [facility] IMAGING Diagnoses Radiculopathy of lumbar region Procedures MRI THORACIC SPINE WO IVCON MRI SPINAL CANAL THORACIC W/O CONTRAST MATRL Gavin Cruz PA-C [address] [place] [address] Mr Imaging Referral ID Status Reason Start Date Expiration Date V isits Requested Visits Authorized [id number] Closed Auto-Generate d Referral 04/29/2022 06/17/2022 1 1 Reason Onset Date Comments EMG 06/03/2022 Referral ID Status Reason Start Date Expiration Date V isits Requested Visits Authorized [id number] Closed Auto-Generate d Referral 04/29/2022 04/29/2023 1 1 Reason Comments Cough Nasal congestion, th roat pain x6 days. Reason Comments Patient Question Reason Comments PACC Missed appointment Reason Comments Called Back Reason Comments Pre-Op Visit Reason Comments Results Reason Comments Patient Update Reason Comments insurance denial Reason Comments LTOT Patch refill must go to [facility].Last dose of pain medication 12/11/2022 at 8:30pm. Reason Comments Other LTOT. Reason Onset Date Comments Medication Problem 12/12/2022 PA needed Reason Onset Date Comments Appointment 02/10/2023 Reason Comments Med Refill LTOT Reason Onset Date Comments Med Refill 03/30/2023 Reason Onset Date Comments Med Refill 03/31/2023 Reason Onset Date Comments Med Refill 04/04/2023 gabapentin (Neur ontin) 400 MG capsule Reason Comments WOC Appointments Reason Onset Date Comments Medication request 07/13/2023 Reason Onset Date Comments Prior Authorization 07/18/2023 Leonel SINGH ap proved Reason Comments LTOT Med Refill Reason Onset Date Comments Care Coordination 10/09/2023 Outreach to sp eak with pt regarding concerns relating to anxiety sxs. Reason Comments Anxiety Pt reports anxiety r elated sxs accompanied by depression that is interfering with mood stability and functioning. Reason Comments Depression Pt continues to repo rt ongoing anxiety associated with persistent depression. She indicated at times feeling overwhelmed, restless, and keyed up which co-occurs then with fatigue and difficulties with motivation/concentration. Reason Comments High Blood Sugar Reason Comments Chronic Pain Reason Onset Date Comments Med Refill 01/07/2024 Reason Comments insulin pump start training Reason Comments Insomnia Reason Comments Insulin pump start f/u Reason Onset Date Comments Med Refill 04/23/2024 Reason Comments Forms Prescription Form - Omnipod 5 PODS [[employer]] Reason Onset Date Comments Refill Request 05/20/2024 Reason Onset Date Comments Med Refill 05/22/2024 Reason Comments Chronic Pain Reason Comments Insomnia LTOT Reason Comments Forms DWO for CGM - Sensor s & Transmitter [[employer]] Reason Comments Follow Up Reason Comments New Patient Reason Comments Medication Check LTOT Reason Comments Follow-up Reason Comments Care Coordination Conducting living wi th pain interview in preparation for Living with Pain group participation. Reason Onset Date Comments Med Refill 09/29/2024 Reason Comments yearly follow up Reason Comments Refill Request Reason Comments Med Refill Reason Onset Date Comments Med Refill 12/28/2024 Reason Onset Date Comments Med Refill 01/12/2025 Reason Onset Date Comments Med Refill 02/17/2025 Reason Comments Follow-up Reason Onset Date Comments Med Refill 04/21/2025 FOR RECORDS PERTAINING TO PATIENTS WHO ARE OR HAVE BEEN ENROLLED IN A CHEMICAL DEPENDENCY/SUBSTANCEABUSE PROGRAM, SOME INFORMATION MAY BE OMITTED. This clinical summary was aggregated from multiple sources. Caution should be exercised in using it in the provision of clinical care. This summary normalizes information from multiple sources, and as a consequence, information in this document may materially change the coding, format and clinical context of patient data. In addition, data may be omitted in some cases. CLINICAL DECISIONS SHOULD BE BASED ON THE PRIMARY CLINICAL RECORDS. [employer] provides no warranty or guarantee of the accuracy or completeness of information in this document.
[2025-05-10 12:03] LABS: Anion Gap 11 (5-15); BUN 33 mg/dL (4-19); BUN/Creat Ratio 20.1 RATIO (10-20); Calcium,Total 9.4 mg/dL (7.6-11.0); Carbon Dioxide 27.0 mmol/L (21.0-32.0); Chloride 100 mmol/L (98-108); Estimated Creatinine Clearance 41.84 ml/min (50-250); Glucose 312 mg/dL (70-99); Potassium 4.3 mmol/L (3.3-5.1)
[2025-05-10 12:05] LABS: Troponin T High Sensitivity 156 ng/L (<=14)
[2025-05-10 15:00] LABS: Troponin T High Sens 2 HR 432 ng/L (<=14)
--- NOTE | 2025-05-10 15:25 | PCM.HP.STD ---
HPI - General General Date of Admission: 05/10/25 Date of Service: 05/10/25 Chief Complaint: Syncopal episode HPI Narrative LENA BENSON, is a 59 F who presented to [facility] ED on 05/10/2025 after a syncopal episode at home. Medical history significant for well-controlled type 1 diabetes on insulin pump, CKD stage IIIb, chronic pain syndrome with neuropathy, class II obesity, hypertension and hyperlipidemia. She lives home with her . This morning she was eating a piece of bread when she felt like she was choking, so she went to the fridge to get something to drink and then woke up on the ground. Her found her on the ground and noted that she had bit her tongue and vomited. When EMS arrived her blood pressure was apparently in the 200s and she had vomiting enroute as well. No history of seizures noted. She has history of vertigo and had some mild symptoms on that resolved by Monday. No other recent concerns noted. In the ED she was normotensive, in normal sinus rhythm and stable on room air at rest. CT brain and C-spine and chest x-ray were benign. CBC and BMP were benign. However, she was found to have a troponin trend of 156 > 432. No ischemic EKG changes noted. Case was discussed with cardiology who recommended heparin drip and admission to medicine. Hospitalist was then contacted for admission. I saw the patient at bedside the ED, was present. Patient was sitting back comfortably in bed, conversing normally, in no acute distress. She denied any chest pain or shortness of breath. States she felt back to her normal now and had no other acute concerns currently. Will be admitted for further management. Patient notably was hospitalized here in October 2021 with a similar presentation. She presented then with nausea and vomiting and was found to have a troponin trend of 603 > 541. Left heart cath showed mild to moderate stenosis in branches off of the RCA and LAD but no significant areas of stenosis. Echo showed EF 65%, stage I diastolic dysfunction, no other concerning findings. Medical therapy was recommended and she was discharged home in stable condition. [facility] Medical History Rib fractures Essential hypertension Nonobstructive atherosclerosis of coronary artery Vision loss of left eye Depression Diabetes Chronic pain Kidney disease Asthma Non-smoker Obesity Diabetes Glaucoma Carpal tunnel syndrome Arthritis Vision problems Neuropathy Kidney disease IBS (irritable bowel syndrome) Hypoglycemia Type 1 diabetes mellitus without complications UTI (urinary tract infection) Chronic sinusitis Allergic rhinitis GERD (gastroesophageal reflux disease) Asthma DM type 1 causing renal disease DM type 1 (diabetes mellitus, type 1) Legal blindness Home Medications ?Medication ?Instructions ?Recorded ?Last Taken ?Type aspirin 81 mg chewable tablet 81 mg PO DAILY@0800 heart health 07/09/15 05/10/25 History estradiol 0.5 mg tablet 0.5 mg PO QHS MENOPAUSE SYMPTOMS 03/06/18 05/09/25 History medroxyprogesterone 2.5 mg tablet 2.5 mg PO QHS HORMONE 03/06/18 05/09/25 History blood-glucose sensor (Dexcom G6 #9 ea 08/26/21 Unknown Rx Sensor device) blood-glucose transmitter (Dexcom #1 ea 08/26/21 Unknown Rx G6 Transmitter device) atorvastatin 40 mg tablet (Lipitor) 40 mg PO DAILY #30 tabs 10/29/21 05/09/25 Rx docusate sodium 100 mg capsule 100 mg PO DAILY PRN Constipation 10/29/21 05/10/25 History (Colace) insulin lispro 100 unit/mL 100 unit continuous subcutaneous 12/28/22 05/10/25 Rx subcutaneous solution (Humalog infusion .continuous #90 mL U-100 Insulin) doxycycline monohydrate 50 mg 50 mg PO DAILY 05/10/25 05/10/25 History capsule fentanyl 62.5 mcg/hour transdermal 1 patch topical Q3D 05/10/25 Unknown History patch gabapentin 400 mg capsule 400 mg PO BID 05/10/25 05/10/25 History imipramine pamoate 100 mg capsule 100 mg PO QHS 05/10/25 05/09/25 History insulin pump cart,auto,BT,G6/7 05/10/25 Unknown History (Omnipod 5 G6-G7 Pods (Gen 5) subcutaneous cartridge) losartan 50 mg tablet 50 mg PO DAILY 05/10/25 05/09/25 History nitrofurantoin macrocrystal 50 mg 50 mg PO MOWEFR 05/10/25 05/09/25 History capsule venlafaxine 150 mg 150 mg PO DAILY 05/10/25 05/10/25 History capsule,extended release 24 hr venlafaxine 75 mg tablet 75 mg PO QHS 05/10/25 05/09/25 History Allergy/AdvReac Type Severity Reaction Status Date / Time diphenhydramine HCl (From Allergy Other Verified 05/10/25 11:04 Benadryl) Iodinated Contrast Media Allergy Vomiting Verified 05/10/25 11:04 (DYEE) metoclopramide HCl (From Allergy Other Verified 05/10/25 11:04 Reglan) prochlorperazine edisylate Allergy Other Verified 05/10/25 11:04 (From Compazine) prochlorperazine maleate Allergy Other Verified 05/10/25 11:04 (From Compazine) levofloxacin (From Levaquin) AdvReac Intermediate anxious Verified 05/10/25 11:04 Family History Other Asthma Breast cancer Heart disease Surgical History History of left heart catheterization (10/29/21) Social History Smoking Status: Never smoker alcohol intake: never substance use type: does not use what type of physical activity do you participate in: other details: occassionally ROS Constitutional Constitutional: Denies chills, fatigue, fever(s) or weakness Eyes Eyes: Denies change in vision Cardiovascular Cardiovascular: Denies chest pain, dyspnea on exertion, edema, lightheadedness or palpitations Respiratory/Chest Respiratory/Chest: Denies cough or shortness of breath at rest Gastrointestinal Gastrointestinal: Denies abdominal pain, nausea or vomiting Musculoskeletal Musculoskeletal: Denies arthralgias or myalgias Neurologic Neurologic: Denies dizziness, focal weakness or headache(s) Vital Signs Vital Signs Vital Signs: 05/10/25 10:56 05/10/25 11:04 05/10/25 11:05 Temperature 97.6 F L Temperature Source Oral Pulse Rate 77 Respiratory Rate 16 Respiratory Effort Normal Non-Labored Respiratory Pattern Normal Blood Pressure 148/97 H Blood Pressure Mean 114 Pulse Ox 93 Oxygen Delivery Method Room Air Room Air 05/10/25 13:12 05/10/25 13:15 05/10/25 13:30 Temperature Temperature Source Pulse Rate Respiratory Rate Respiratory Effort Respiratory Pattern Blood Pressure Blood Pressure Mean Pulse Ox 96 99 99 Oxygen Delivery Method 05/10/25 13:45 05/10/25 14:00 Temperature Temperature Source Pulse Rate 74 Respiratory Rate 14 Respiratory Effort Respiratory Pattern Blood Pressure 148/97 H Blood Pressure Mean 114 Pulse Ox 99 96 Oxygen Delivery Method Weight Weight: 97.522 kg Body Mass Index (BMI) 38.0 Physical Exam Const alert, oriented x3 and no apparent distress Constitutional Narrative: Pleasant middle-age female, class II obesity, sitting back comfortably in bed, conversing normally, in no acute distress. General Appearance: cooperative and comfortable HEENT normocephalic, head/scalp atraumatic, hearing grossly normal bilaterally, nasal mucous membranes and turbinates normal and moist oral mucous membranes Eyes PERRL, EOMs intact bilaterally and conjunctivae normal Neck full ROM Chest inspection of chest normal Resp normal respiratory effort, normal air movement, no use of accessory muscles and clear to auscultation bilaterally Cardio regular rate, regular rhythm, no murmurs and peripheral pulses 2+ throughout GI normal to inspection, nondistended, normoactive bowel sounds, soft to palpation, non-tender and non-distended Back/Spine normal ROM Extremity normal to inspection, full ROM and no pedal edema Skin no rashes or lesions noted Psych mental status grossly normal Results Lab / Micro Data 05/10/25 11:25 05/10/25 11:25 Labs: Laboratory Results - last 24 hr 05/10/25 11:25: WBC 4.7, RBC 3.92 L, Hgb 11.7 L, Hct 34.7 L, MCV 88.5, MCH 29.8, MCHC 33.7, RDW Std Deviation 39.3, RDW Coeff of Jose 12.3, Plt Count 159, MPV 9.3, Immature Gran % (Auto) 0.200, Neut % (Auto) 73.0 H, Lymph % (Auto) 20.5, [place] % (Auto) 6.3, Eos % (Auto) 0.0, Baso % (Auto) 0.0, Absolute Neuts (auto) 3.5, Absolute Lymphs (auto) 0.97, Nucleated RBC % 0, Sodium 138, Potassium 4.3, Chloride 100, Carbon Dioxide 27.0, Anion Gap 11, BUN 33 H, Creatinine 1.63 H, Estim Creat Clear Calc 41.84 L, Est GFR (MDRD) Non-Af 36 L, BUN/Creatinine Ratio 20.1 H, Glucose 312 H, Calcium 9.4, Troponin T High Sens 156 H* 05/10/25 11:50: Lactic Acid < 1.0 05/10/25 14:00: Troponin T Hi Sens 2 Hr 432 H* Imaging Radiology Impression Brain CT 05/10/25 11:13 IMPRESSION: Negative for acute intracranial pathology. Negative for acute abnormality of the cervical spine. Reading Location: [facility] Cervical Spine CT 05/10/25 11:13 IMPRESSION: Negative for acute intracranial pathology. Negative for acute abnormality of the cervical spine. Reading Location: [facility] Chest X-Ray 05/10/25 11:35 IMPRESSION: Negative chest Reading Location: [facility] Assessment & Plan Assessment/Plan (1) Non-ST elevation CA (NSTEMI): (2) Syncope: PLAN: Plan Patient is a 59-year-old female who presented [facility] ED on 05/10/2025 after a syncopal episode at home. 1. NSTEMI ? Admit under inpatient status to PCU. Cardiology consulted. Troponin trend 156 > 432 > 387 on admit. No ischemic EKG changes noted and patient denies chest pain. However, presenting with syncopal episode as below and given her history of diabetes and other comorbidities as below, cannot rule out cardiac etiology. Per cardiology, placed on heparin drip with likely plan for left heart cath. Patient notably was hospitalized here with similar presentation in October 2021. Left heart cath showed mild to moderate stenosis in branches off of the RCA and LAD but no significant areas of stenosis. Echo showed EF 65%, stage I diastolic dysfunction, no other concerning findings. No cardiac issues since then. Monitor telemetry. N.p.o. at midnight for possible cath tomorrow. Repeat echo ordered. 2. Syncopal episode ? Unclear etiology. Patient admits to choking somewhat on some bread prior to passing out so vasovagal response due to choking is a possibility. This vasovagal episode could also explain the troponin bump to some degree especially in the setting of CKD stage III with decreased troponin clearance. Patient and report that she bit her tongue and vomited and appeared somewhat confused afterwards, but no seizure history and patient back to baseline by arrival to the ED. CT brain and CT C-spine unremarkable. Monitor telemetry as above. Further workup as above. Chronic medical conditions: ? Class II obesity: BMI 35 on admit. Complicates hospital course and care. ? Type 1 diabetes mellitus on insulin pump: Previously followed with [place] endocrinology but has followed with a different tank setter for the last few years. Diagnosed at age 13. Has been on insulin pump for many years now with very good blood sugar control. Reported last A1c around 6.5%. Blood glucose 312 in the ED, which she notes is quite high for her but is not surprising given her event today. Okay to continue home insulin pump while inpatient. ? History of nonobstructive CAD, hypertension, hyperlipidemia: Had episode in 2021 as above requiring left heart cath that showed mild to moderate nonobstructive CAD with medical management recommended. Continue home aspirin and statin. Will hold home losartan for now. ? CKD stage IIIb: Creatinine 1.66 on admit, stable at baseline. Monitor daily BMP and urine output. ? Chronic pain syndrome with neuropathy: Stable. Continue home fentanyl patch, gabapentin, venlafaxine and imipramine at night. DVT prophylaxis: Not indicated, on heparin drip CODE STATUS: Full code, verified Expected disposition: Home, TBD Total clinical time spent by myself addressing the patient's medical issues, reviewing all the data, and collaborating with patient's care team: 79 minutes. Charges/Coding Visit Charges Inpatient E&M: 04004 Init Hosp L3
--- NOTE | 2025-05-10 15:29 | ECHOCS_ITS ---
Reason For Study Reason For Study: CHEST PAIN Procedure This was a 2D Doppler, Color Flow transthoracic echocardiogram. The study was technically difficult. Contrast injection was performed. Exam performed portable in patient room. Left Ventricle Normal size and thickness. The left ventricular ejection fraction is 60 %. Diastolic function is indeterminate. Right Ventricle Normal right ventricle. Atria The left and right atria are normal. Mitral Valve Trivial mitral valve insufficiency. Tricuspid Valve Normal tricuspid valve. Aortic Valve Trisinus/trileaflet aortic valve. Pulmonic Valve The pulmonic valve is not well visualized. Great Vessels Normal sized aortic root. Pericardium/Pleural No pericardial effusion. Medication Diluted definity 1ml given slow IV push to enhance endocardial definition. MMode/2D Measurements & Calculations LVIDd: 4.7 cm IVSd: 0.87 cm Ao root diam: 3.0 cm LVIDs: 2.8 cm LVPWd: 1.0 cm LA dimension: 3.8 cm FS: 40.8 % LAV(MOD-bp): 28.1 ml LVAd ap4: 32.8 cm2 SV(MOD-sp4): 63.3 ml LAV(MOD-bp) Indexed: 14.1 ml/m2 LVLd ap4: 8.1 cm SI(MOD-sp4): 31.7 ml/m2 LAV(MOD-sp2): 27.4 ml EDV(MOD-sp4): 108.3 ml LAV(MOD-sp4): 29.5 ml EDV(sp4-el): 111.8 ml LVAs ap4: 19.3 cm2 LVLs ap4: 6.8 cm ESV(MOD-sp4): 45.1 ml ESV(sp4-el): 46.4 ml EF(MOD-sp4): 58.4 % EF(sp4-el): 58.5 % SV(sp4-el): 65.5 ml LA A4 area: 13.2 cm2 LA dimension(2D): 3.8 cm RA A4 area: 10.7 cm2 Time Measurements MV dec time: 0.20 sec Doppler Measurements & Calculations MV E max rafa: 77.5 cm/sec Lat Peak E' Rafa: 8.5 cm/sec Med Peak E' Rafa: 6.5 cm/sec MV A max rafa: 100.8 cm/sec E/E' lat: 9.2 E/E' med: 11.9 MV E/A: 0.77 MV V2 max: 110.2 cm/sec MV dec slope: 384.0 cm/sec2 Ao V2 max: 159.7 cm/sec MV max P.9 mmHg Ao max P.3 mmHg MV V2 mean: 78.4 cm/sec Ao V2 mean: 115.9 cm/sec MV mean P.7 mmHg Ao mean P.0 mmHg MV V2 VTI: 29.2 cm Ao V2 VTI: 37.6 cm AV (velocity ratio): 0.77 LV V1 max: 125.2 cm/sec PA V2 max: 114.5 cm/sec LV V1 max P.3 mmHg PA V2 mean: 85.7 cm/sec LV V1 mean P.4 mmHg LV V1 mean: 84.4 cm/sec LV V1 VTI: 28.9 cm ECHO/Echo Complete W/ Contrast Interpretation Summary The left ventricular ejection fraction is 60 %. Ordering Physician: Shon Aguilera Referring Physician: TRUPTI ROSARIO Performed By: Judith Jaeger RCS
[2025-05-10] MEDS: Heparin Injection (Vial) 5,000 UNIT/ML VIAL 4000 UNIT IV (15:38)
[2025-05-10] MEDS: HEPARIN/D5w 25,000 UNITS 25,000 UNITS/250 ML IV.SOLN. 11.7 UNITS CONT INF (15:39)
--- OUTSIDE RECORDS SUMMARY | 2025-05-10 15:50 | XMS RPT_ITS | CCD ---
Author Organization [facility] Care Team Providers Care Assistant Producer Name Role Phone Anna Mancilla Primary Care Provider Deep Tsang Primary Care Provider Azael, Verlaine L Primary Care Provider Mul[place] cokery R Primary Care Provider Azael DO, Verlaine L Primary Care Provider Deep [...] Primary Care Unavailable Azael, Verlaine Referring Unavailable Lambert LakeViviana lewissa Attending Unavailable Deep Tsang Primary Care Provider [phone] Azael LEYVA, Verlaine Limbo Primary Care Provider KATELYNN JAIME Attending Unavailab le AZAEL, VERLAINE LIMBO Primary Care Unavailab le Azael DO, Verlaine L Primary Care Provider [phone] Azael DO, Verlaine L Primary Care Provider [phone] Care Physician, No Primary Referring Unava ilable [...] Azael DO, Verlaine L Primary Care Provider Titi Mallory PA-C Primary Care Provider Deep [...] le Titi Mallory PA-C Primary Care Provider GAVIN OTTO Attending Unavailable TITI MALLORY Primary Care Unavailable GAVIN OTTO Attending Unavailable TITI MALLORY Primary Care Unavailable AZAEL, VERLAINE Attending Unavailable AZAEL, VERLAINE Primary Care Unavailable AZAEL, VERLAINE Attending Unavailable AZAEL, VERLAINE Primary Care Unavailable AZAEL, VERLAINE Attending Unavailable AZAEL, VERLAINE Primary Care Unavailable SUASN COLE Attending Unavailable AZAEL, VERLAINE Primary Care [...] Prochlorperazine (5 sources) Prochlorperazine Drug Allergy 001 [facility] Work Phone: (20 sources) diphenhydrAMINE; Translations: [DIPHENHYDRAMINE] Drug Allergy 007 Agitation [place], [place] (20 sources) Metoclopramide; Translations: [METOCLOPRAMIDE] Drug Allergy 001 Other (See Comments), Intolerance, Other, Unknown [place] (20 sources) oxyCODONE; Translations: [OXYCODONE] Drug Allergy 017 Anxiety, Other (See Comments), Other [place] (20 sources) Prochlorperazine; Translations: [prochlorperazine maleate] Drug Allergy 017 [place] (12 sources) Prochlorperazine; Translations: [Compazine] Drug Allergy 001 Unknown, Other [facility] (3 sources) Nitrofurantoin Drug Allergy 003 Other (See Comments) [place] (20 sources) levoFLOXacin; Translations: [LEVOFLOXACIN] Drug Allergy 021 Other (See Comments), Other: See Comments, Other, Unknown, Anxiety [facility] Work Phone: (20 sources) Antihistamines; Translations: [ANTIHISTAMINES] Drug Intolerance 003 Intolerance [facility] Work Phone: (20 sources) Nitrofurans (Antibiotic); Translations: [NITROFURAN ANALOGUES] Propensity to adverse reactions 003 Intolerance, Unknown [facility] Work Phone: (20 sources) Phenothiazine; Translations: [PHENOTHIAZINES] Propensity to adverse reactions 001 Intolerance, Unknown [facility] Work Phone: (20 sources) Nitrofurantoin Drug Allergy 003 [facility] (20 sources) Phenothiazine Drug Intolerance 001 [facility] (20 sources) Iodinated Contrast Media; Translations: [IODINATED CONTRAST MEDIA] Drug Allergy 022 Unknown, Nausea/vomiti ng [facility] (1 source) diphenhydrAMINE Drug Allergy 023 [facility] (1 source) levoFLOXacin Drug Allergy 023 [facility] (3 sources) Metoclopramide; Translations: [METOCLOPRAMIDE HCL] Drug Allergy 023 [facility] (1 source) Prochlorperazine Drug Allergy 023 [facility] (1 source) Iodinated Contrast Media Drug allergy (disorder) 023 [facility] (2 sources) diphenhydrAMINE; Translations: [Benadryl CAPS] Drug Allergy [facility] Work Phone: (3 sources) diphenhydrAMINE Drug Allergy 007 Agitation, Unknown, Other [facility] Work Phone: (5 sources) Iodine; Translations: [IODINE] Drug Allergy 023 Unknown [facility] Work Phone: (3 sources) Metoclopramide Drug Allergy 023 Unknown [facility] Work Phone: (5 sources) Antihistamine-1; Translations: [ANTIHISTAMINE-1] Drug Intolerance 003 Unknown [facility] (20 sources) Amitriptyline Drug Allergy 024 Other [facility] Medications Current Medications Medication Drug Class(es) [...] MG tablet Indications: Coronary artery disease involving [place] coronary artery of [place] heart without angina pectoris Take 1 tablet (40 mg) by mouth daily. 90 tablet 3 06/13/2024 06/08/2025 Active Comment on above: Take 40 mg by mouth once daily. 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 ICD-10: E10.65 ICD-10: E11.65 (insulin dependent) 1 Each 3 12/08/2023 Active Start: 08-14-2020 End: 05-14-2024 Blood-Glucose Meter,Continuo us (DEXCOM G7 FIELD TRAINING AGENT) misc 1 Each. 08/14/2020 05/14/2024 Discontinued Start: 08-14-2020 Blood-Glucose Meter,Continuous (DEXCOM G7 FIELD TRAINING AGENT) misc 1 Each. 08/14/2020 Active Start: 08-14-2020 Blood-Glucose Meter,Continuous (DEXCOM G7 FIELD TRAINING AGENT) misc 1 Each. 0 08/14/2020 Active Comment [...] / neomycin 3.5 mg/ml / polymyxin b [id number] unt/ml ophthalmic suspension (3 sources) Aminoglycoside Antibacterial, [...] Comment on above: Take 1 tablet by davei th four times daily. 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 May repeat after 15 minutes using a new device if there is no response. 1 Each 4 12/08/2023 Active Start: 03-02-2013 glucagon (Gluc agon Emergency Kit, human,) 1 mg injection 1 mg. GLUCAGON EMERGENCY 1 MG injection 09/12/2013 Active Comment on above: 1 mg as directed. 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 Multivitamin preparation (3 sources) [...] Coronary atherosclerosis; Translations: [Atherosclerotic heart disease of [place] coronary artery without angina pectoris] Onset: 12-23-2021 [...] current use 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 drug; Translations: [long term care pharmacist (current) use 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] 09-19-2024 Episodic [...] Onset: 07-29-2021 Episodic Other aftercare (4 sources) long term care pharmacist (current) use 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; Translations: [long term care pharmacist (current) use 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] Onset: 07-29-2021 [...] placed to pharm lynn and spoke with cogeneration technician. They are unable to submit the refill to insurasnce as it is too soon. They are unable to see if there was a PA approval until pt is due for next refill. software technician stated they would call office if there is an issue when pharmacy is filling the next script. [facility] 36 Spoke with Adelso Please have the pharmacist re-run the medication as there is electronic documentation of approval of PA completed 04/18/25 that runs through 03/18/25 to 04/18/2026 Approved 04/18/2025 11:53 AM Appeal supported: No Note from payer: CaseId:[id number];Status:A pproved;Review Type:Prior Auth;Coverage Start Date:03/18/2025;Coverage End Date:04/18/2026; Payer: [facility] Commercial Case ID: [id number] [facility] 36 Spoke with [facility]. Patient paid out of pocket for a 15 day supply on 04/17/25. This was $360 out of pocket. Patient will need a new script to cover the last 15 days as they had to waste it to fill those 15 days. They do need a prior auth. Pharmacy states that it needs to be a halfway prior auth to cover the full year of prescriptions. Please advise. [facility] 36 Please call pharmacy to confirm PA that was approved and patient is able to get medications when due as our office keeps getting paperwork from CoverMyMeds to complete PA [facility] 36on 04-21-2025 36 Medication(s) refill ed: Requested [...] Provider: NIECY ADDISON DO 04/21/2025 4:41 PM [facility] 36 Ordering provider: Niecy Addison DO Date of last office visit: 03/13/25 Date of next office visit: 06/04/2025 [facility] Add[facility] Updated/Validated preferred pharmacy: Yes [id number] - [place], [place] - [address] [facility] Patient instructed to contact the pharmacy [...] of last refill (see medication tab): 01/13/[address] 04-17-2025 36 Initiated PA via Epic [facility] 36on 04-16-2025 36 Name of caller: Shravan vilchis Contact phone number: [phone] Relationship to Patient: [facility] Provider: Azael Gregg Practice: [facility] Chief Complaint/Reason for Call: Caller stated they were advised By Pt's Insurance that a long-term PA is needed in order to have Pt's Rx fentaNYL (Duragesic) 62.5 MCG/HR covered. Quickest way to have done is that Provider's office need to call [phone]. Please advise. Best time of day caller can be reached: Any Patient advised that office/PCP has 24-48 business hours to return their call: No [facility] 36 Appointment reschedu led to 06/04/2025. [address] 04-08-2025 36 LVM to r/s [facility] 36 Provider will be out of the office on 06/05. Please call to r/s appt. Okay to schedule on 06/04 in the AM if pt agreeable [facility] BASIC METABOLIC PANEL WITH A NION GAPon 04-06-2025 Calcium [Mass/Vol] 9.6 mg/dL Normal 8.6-10.4 [facility] Comment on above: Order Comment: FASTI NG:YES FASTING: YES Performed By: #### [id number] #### [facility] [address], [address] [place], [place] [id number] Credit Administration Manager: Raffy King MD Chloride [Moles/Vol] 99 mmol/L Normal 98-110 [facility] Comment on above: Order Comment: FASTI NG:YES FASTING: YES Performed By: #### [id number] #### [facility] [address], [address] [place], [place] [id number] Credit Administration Manager: Raffy King MD CO2 [Moles/Vol] 28 mmol/L Normal 20-32 [facility] Comment on above: Order Comment: FASTI NG:YES FASTING: YES Performed By: #### 9 [id number] #### [facility] [address], [address] [place] [address] Credit Administration Manager: Raffy King MD Creatinine [Mass/Vol] 1.57 mg/dL High 0.50-1.03 [facility] Comment on above: Order Comment: FASTI NG:YES FASTING: YES Performed By: #### 9 [id number] #### [facility] [address], [address] [place] [address] Credit Administration Manager: Raffy King MD ELECTROLYTE BALANCE 10 mmol/L (calc) Normal 7-17 [facility] Comment on above: Order Comment: FASTI NG:YES FASTING: YES Performed By: #### 9 [id number] #### [facility] [address], [address] [place] [address] Credit Administration Manager: Raffy King MD GFR/1.73 sq M.predicted among non-blacks MDRD (S/P/Bld) [Vol rate/Area] 38 mL/min/{1.73_m2} Low > OR = 60 [facility] Comment on above: Order Comment: FASTI NG:YES FASTING: YES Performed By: #### 9 [id number] #### [facility] [address], [address] [place] [address] Credit Administration Manager: Raffy King MD Glucose [Mass/Vol] 167 mg/dL High 65-99 [facility] Comment on above: Order Comment: FASTI NG:YES FASTING: YES Result Comment: Fasting reference interval For someone without known diabetes, a glucose value >125 mg/dL indicates that they may have diabetes and this should be confirmed with a follow-up test. Performed By: #### 9 [id number] #### [facility] [address], [address] [place] [address] Credit Administration Manager: Raffy King MD Potassium [Moles/Vol] 4.8 mmol/L Normal 3.5-5.3 [facility] Comment on above: Order Comment: FASTI NG:YES FASTING: YES Performed By: #### 9 [id number] #### [facility] of [address], [address] [place] [address] Credit Administration Manager: Raffy King MD Sodium [Moles/Vol] 137 mmol/L Normal 135-146 [facility] Comment on above: Order Comment: FASTI NG:YES FASTING: YES Performed By: #### 9 [id number] #### [facility] [address], [address] [place] [address] Credit Administration Manager: Raffy King MD Urea nitrogen [Mass/Vol] 32 mg/dL High 7-25 [facility] Comment on above: Order Comment: FASTI NG:YES FASTING: YES Performed By: #### 9 [id number] #### [facility] of [address], [address] [place] [address] Credit Administration Manager: Raffy King MD Urea nitrogen/Creatinine [Mass ratio] 20 mg/mg Normal 6-22 [facility] Comment on above: Order Comment: FASTI NG:YES FASTING: YES Performed By: #### 9 [id number] #### [facility] of [address], [address] [place] [address] Credit Administration Manager: Raffy King MD on 03-13-2025 29 Addended by: NIECY ADDISON on: 03/13/2025 10:01 AM Modules accepted: Orders [facility] Progress Noteon 03-13-2025 Progress Note Chronic, uncontrolle [...] she will let me know via MyChart [facility] Progress Note Controlled After addressing medication(s) [...] mg) by mouth 2 times daily. Normal [facility] Progress Note Prechart note: (the following data was documented before the visit began) Rooming: vv Possible agenda: LTOT Provider notes: go over labs - KATE? No microalbuminuria Next appt 06/12/25 Multidisciplinary team needs: Health Maintenance to be addressed today: CRC - cologuard ? 04/21 [place] Medicaid Search by Drug Name [place] Medicaid Drug List Health Maintenance Due Topic Date Due Diabetes: Celiac Disease Screening Never done Colorectal Cancer Screening Never done MMR Vaccines (1 of 1 - Standard series) Never done Diabetes: Foot Exam Never done Diabetes: Dental Exam Never done Mammogram Never done COVID-19 Vaccine () 04/28/2024 Depression Monitoring 03/18/2025 (end precharting)- [facility] [place] - [address] FLO[address] [facility] [address] Dept: [phone] Dept Loc: [phone] Patient was seen today via Telehealth by [...] stated that they are currently in the [facility]. If the patient is a minor, permission [...] - she will let me know via [employer] Screen for colon cancer 2023 order will [...] Niecy Addison DO on 03/13/2025 9:25 AM [facility] PAIN MANAGEMENT DRUG PANEL Date Value [...] active cancer (more content not included)... Normal [facility] 36on 03-12-2025 36 Call placed to Toxic ology lab and spoke with tech. They could not see the pain management panel on their end. This RN reviewed chart and noticed that order was placed as a future order. This RN released order and then lab was able to add on the test. Normal [facility] COMPREHENSIVE METABOLIC PANE Eric 03-11-2025 Albumin [Mass/Vol] 3.7 g/dL Normal 3.5-5.0 [facility] Comment on above: Performed By: #### L AB17, LAB18 ####Credit Administration Manager: VITA COOPER ([id number])[facility] (SWRLAB)[address] ALP [Catalytic activity/Vol] 65 U/L Normal 40-150 [facility] Comment on above: Performed By: #### L AB17, LAB18 ####Credit Administration Manager: VITA COOPER ([id number])[facility] TICO RITTMAN (SWRLAB)[address] ALT [Catalytic activity/Vol] 16 U/L Normal <30 [facility] Comment on above: Performed By: #### L AB17, LAB18 ####Credit Administration Manager: VITA COOPER ([phone])[facility] ([facility])[address] Anion gap [Moles/Vol] 12 mmol/L Normal 3-13 [facility] Comment on above: Performed By: #### L AB17, LAB18 ####Credit Administration Manager: VITA COOPER ([phone])[facility] DOSHI [facility] (SWRLAB)[address] AST [Catalytic activity/Vol] 30 U/L Normal <34 [facility] Comment on above: Performed By: #### L AB17, LAB18 ####Credit Administration Manager: VITA COOPER ([id number])[facility] JIMENEZTICO RITTMAN (SWRLAB)[address] Bilirubin [Mass/Vol] 0.3 mg/dL Normal <1.2 [facility] Comment on above: Performed By: #### L 17, LAB18 ####Credit Administration Manager: VITA COOPER ([phone])[facility] DOSHI R[place] (SWRLAB)[address] [place] [address] [place] Calcium [Mass/Vol] 9.5 mg/dL Normal 8.4-10.2 [facility] Comment on above: Performed By: #### Adi AB17, LAB18 ####Credit Administration Manager: VITA COOPER ([id number])[facility] JIMENEZTICO RITTMAN (SWRLAB)[address] [place] [address] [place] Chloride [Moles/Vol] 94 mmol/L Low 98-107 [facility] Comment on above: Performed By: #### L AB17, LAB18 ####Credit Administration Manager: VITA COOPER ([id number])[facility] JIMENEZTICO R[place]TMAN (SWRLAB)[address] [place] [address] [place] CO2 [Moles/Vol] 29 mmol/L Normal 22-29 [facility] Comment on above: Performed By: #### L AB17, LAB18 ####Credit Administration Manager: VITA COOPER ([id number])[facility] JIMENEZTICO RITTMAN (SWRLAB)[address] [place] [address] [place] Creatinine [Mass/Vol] 2.21 mg/dL High 0.57-1.11 [facility] Comment on above: Performed By: #### L AB17, LAB18 ####Credit Administration Manager: VITA COOPER ([id number])[facility] BARAHONATMAN (SWRLAB)[address] [place] [address] [place] GLOMERULAR FILTRATION RATE ML/MIN/1.73 SQ M.PREDICTED 25.3 mL/min/1.73m*2 Low >60.0 [facility] Comment on above: Result Comment: Calc ulation based on the Chronic Kidney Disease Epidemiology Collaboration (CKD-EPI) equation refit without adjustment for race Performed By: #### L AB17, LAB18 ####Credit Administration Manager: VITA COOPER ([id number])[facility]ITAL[facility] TICOPORSHA BARAHONATMAN (SWRLAB)[address] [place] [address] Glucose [Mass/Vol] 254 mg/dL High 74-100 [facility] Comment on above: Performed By: #### Adi PERRIN17, LAB18 ####Credit Administration Manager: VITA COOPER ([id number])[facility] BARAHONATMAN (SWRLAB)[address] [place] [address] [place] Potassium [Moles/Vol] 4.6 mmol/L Normal 3.5-5.1 [facility] Comment on above: Result Comment: Plas ma potassium values may be up to 0.5 mmol/L lower than serum values. Performed By: #### L AB17, LAB18 ####Credit Administration Manager: VITA COOPER ([id number])[facility] BARAHONATMAN (SWRLAB)[address] [place] [address] [place] Protein [Mass/Vol] 7.0 g/dL Normal 6.4-8.3 [facility] Comment on above: Performed By: #### L AB17, LAB18 ####Credit Administration Manager: VITA COOPER ([id number])[facility] BARAHONATMAN (SWRLAB)[address] [place] [address] [place] Sodium [Moles/Vol] 135 mmol/L Low 136-145 [facility] Comment on above: Performed By: #### L AB17, LAB18 ####Credit Administration Manager: VITA COOPER ([id number])[facility] (SWRLAB)[address] Urea nitrogen [Mass/Vol] 41 mg/dL High 9-23 [facility] Comment on above: Performed By: #### L AB17, LAB18 ####Credit Administration Manager: VITA COOPER ([id number])[facility] (SWRLAB)[address] Comprehensive metabolic 1998 panelon 03-11-2025 Albumin [Mass/Vol] 3.7 g/dL 3.5 - 5.0 g/dL [facility] ALP [Catalytic activity/Vol] 65 U/L 40 - 150 U/L [facility] ALT [Catalytic activity/Vol] 16 U/L NINF - 30 U/L [facility] Anion gap [Moles/Vol] 12 mmol/L 3 - 13 mmol/L [facility] AST [Catalytic activity/Vol] 30 U/L NINF - 34 U/L [facility] Bilirubin [Mass/Vol] 0.3 mg/dL [facility] - 1.2 mg/dL [facility] Calcium [Mass/Vol] 9.5 mg/dL 8.4 - 10. 2 mg/dL [facility] Chloride [Moles/Vol] 94 mmol/L Low 98 - 10 7 mmol/L [facility] CO2 [Moles/Vol] 29 mmol/L 22 - 29 mmol/L [facility] Creatinine [Mass/Vol] 2.21 mg/dL High 0.57 - 1.11 mg/dL [facility] GFR/1.73 sq M.predicted (S/P/Bld) [Vol rate/Area] 25.3 mL/min Low - PINF [facility] Comment on above: Calculation based on the Chronic Kidney Disease Epidemiology Collaboration (CKD-EPI) equation refit without adjustment for race Glucose [Mass/Vol] 254 mg/dL High 74 - 100 mg/dL [facility] Potassium [Moles/Vol] 4.6 mmol/L 3.5 - 5.1 mmol/L [facility] Comment on above: Plasma potassium james ues may be up to 0.5 mmol/L lower than serum values. Protein [Mass/Vol] 7 g/dL 6.4 - 8.3 g/dL [facility] Sodium [Moles/Vol] 135 mmol/L Low 136 - 145 mmol/L [facility] Urea nitrogen [Mass/Vol] 41 mg/dL High 9 - 23 mg/dL [facility] FENTANYL, URINEon 03-11-2025 FENTANYL SCREEN, URINE Positive Abnormal Negative [facility] Comment on above: Result Comment: BLAYNE Salinas COMMENTS: Fentanyl has been screened for by Immunoassay at a 1 ng/ml threshold. POSITIVE results are not confirmed by a more specific alternative method unless requested. If confirmation is needed, request confirmation under separate order. NOTE: These results are for medical treatment only. Analysis performed using non-forensic procedures. Performed By: #### L [id number] ####Credit Administration Manager: VITA COOPER ([id number])[facility])[address] [place] [address] LIPID PANELon 03-11-2025 Cholesterol [Mass/Vol] 122 mg/dL Normal <200 [facility] Comment on above: Performed By: #### L AB17, LAB18 ####Credit Administration Manager: VITA COOPER ([id number])[facility] [employer] ([facility])[address] [place] [address] [place] Cholesterol in HDL [Mass/Vol] 40 mg/dL Low >=60 [facility] Comment on above: Performed By: #### L AB17, LAB18 ####Credit Administration Manager: VITA COOPER ([id number])[facility] ([facility])[address] [place] [address] Cholesterol.total/Ch olesterol in HDL [Mass ratio] 3 {ratio} Normal [facility] Comment on above: Result Comment: Ref Range: < 3 Low Risk for CHD 3-6 Mod Risk for CHD > 6 High Risk for CHD Performed By: #### L AB17, LAB18 ####Credit Administration Manager: VITA COOPER ([id number])[facility] JIMENEZTICO [facility] ([facility])[address] LOW DENSITY LIPOPROTEIN 46 mg/dL Normal 0-<100 [facility] Comment on above: Performed By: #### L AB17, LAB18 ####Credit Administration Manager: VITA COOPER ([phone])[facility] DOSHI [employer] ([facility])[address] [place] [address] NON-HDL CHOLESTEROL, CALCULATED 82 Normal <130 [facility] Comment on above: Performed By: #### L AB17, LAB18 ####Credit Administration Manager: VITA COOPER ([phone])[facility] DOSHI [place] ([facility])[address] Triglyceride [Mass/Vol] 179 mg/dL High <150 [facility] Comment on above: Performed By: #### L AB17, LAB18 ####Credit Administration Manager: VITA COOPER ([phone])[facility] DOSHI [employer] ([facility])[address] [place] [address] VERY LOW DENSITY LIPOPROTEIN, CALCULATED 36 mg/dL High <=30 [facility] Comment on above: Performed By: #### L AB17, LAB18 ####Credit Administration Manager: VITA COOPER ([id number])[facility] DOSHI [employer] ([facility])[address] [place] [address] Lipid 1996 panelon Cholesterol [Mass/Vol] 122 mg/dL NINF - 200 mg/dL [facility] [employer] Cholesterol in HDL [Mass/Vol] 40 mg/dL Low 60 - PINF mg/dL [facility] [employer] Cholesterol in LDL [Mass/Vol] 46 mg/dL 0 - <100 [facility] Cholesterol.total/Ch olesterol in HDL [Mass ratio] 3 {ratio} [facility] [employer] Comment on above: Ref Range: < 3 Low Risk for CHD 3-6 Mod Risk for CHD > 6 High Risk for CHD NON-HDL CHOLESTEROL, CALCULATED 82 NINF - 130 [facility] Triglyceride [Mass/Vol] 179 mg/dL High NINF - 150 mg/dL [facility] VERY LOW DENSITY LIPOPROTEIN, CALCULATED 36 mg/dL High NINF - 30 mg/dL [facility] MICROALBUMIN / CREATININE UR INE RATIOon 03-11-2025 CREATININE, URINE 134.3 mg/dL High 47.0-110.0 [facility] Comment on above: Performed By: #### L [id number] ####Credit Administration Manager: VITA COOPER ([id number])[facility] [employer]ICO [employer] ([facility])[address] [place] [address] [place] MICROALBUMIN, URINE 34.0 ug/mL Normal [facility] Comment on above: Result Comment: BLAYNE Salinas COMMENTS: Microalbumin concentrations <30 are considered normal, 30-300 are considered microalbuminuria (or risk of diabetic nephropathy), and >300 are considered clinical albuminuria (clinical nephropathy). Diabetes Care,27, Supplement 1, [id number] Performed By: #### L [id number] ####Credit Administration Manager: VITA COOPER ([id number])[facility] ([facility])[address] [place] [address] MICROALBUMIN/CREATIN INE RATIO 25 mg/g Normal <30 [facility] Comment on above: Performed By: #### L [id number] ####Credit Administration Manager: VITA COOPER ([id number])[facility] [employer] ([facility])[address] [place] [address] Microalbumin/Creatinine rati o panel (U)on 03-11-2025 Albumin DL <= 20 mg/L (U) [Mass/Vol] 34 ug/mL [facility] Albumin/Creatinine DL <= 20 mg/L (U) [Mass ratio] 25 mg/g NINF - 30 mg/g [facility] CREATININE, URINE 134.3 mg/dL High 47.0 - 110 .0 mg/dL [facility] Interpretation and review of laboratory results Abnormal [facility] Microalbumin concentrations <30 are considered normal, 30-300 are considered microalbuminuria (or risk of diabetic nephropathy), and >300 are considered clinical albuminuria (clinical nephropathy). Diabetes Care,27, Supplement 1, [id number] [facility] No Panel Informationon 03-11 Interpretation and review of laboratory results Abnormal [facility] PAIN MANAGEMENT PANELon 02-25 PAIN MANAGEMENT PANEL, UR Negative Normal [facility] Comment on above: Performed By: #### L [id number] ####Credit Administration Manager: VITA COOPER ([id number])[facility])[address] [place] [address] REVIEWED BY Meaghan Brooks Tech I [facility] Comment on above: Result Comment: [...] been determined by the clinical laboratories of [facility]. Performed By: #### L [id number] ####Credit Administration Manager: VITA COOPER ([id number])[address] 02-25-2025 36 Pharmacy was called and they stated the patient picked it up 02/17/25 for a 30-day supply. [place] [address] Please call pharmacy to see what the status is of the PA that was sent last week; or call patient to see if she got her medication [facility] 02-20-2025 36 PA filled out and in outgoing fax box [place] [address] Form filled out and faxed re: PA [place] [address] Will have staff call pharmacy to check status of PA [place] [address] Please call pharmacy to check on status of PA - I have not had any further contact with insurance company re: electronic PA that was submitted [facility] 02-17-2025 36 Call made to patient and message released. Patient stated understanding. No further needs at this time [place] [address] I just initiated the PA and am awaiting insurance decision - as per CITIA Message to patient If unable to get authorized, patient may pay [id number]-[id number] for 1 or more patches to avoid withdrawal [facility] 36 S: Patient's spoke with [facility] nurse regarding pain patch B: [id number] (Duragesic) [...] medicines) Protocols used: Medication Refill and Renewal [id number] [facility] 36 Name of caller: Octavio vela Contact phone number: [phone] Relationship to Patient: spouse/SO Provider: Dr Addison Practice: [facility] Chief Complaint/Reason for Call: states she will need patches today, he wanted to make sure PA was done Best time of day caller can be reached: any Patient advised that office/PCP has 24-48 business hours to return their call: No [facility] 01-13-2025 36 Past 14 days Signed 2 weeks ago (12/30/2024): [place] [address]on 12-30-2024 36 Refills already sent to pharmacy [place] [address] Name of caller: Kvng hernandez Contact phone number: [phone] Relationship to Patient: patient Provider: Azael Practice: [facility] Chief Complaint/Reason for Call: Patient states at her last appointment, it was discussed that her imipramine (Tofranil) was going to be split up into 2 different prescriptions: imipramine 100 mg tablet nightly imipramine (Tofranil) 50 MG tablet PRN Patient asking refills be sent to [id number] in [place]. Please advise. Best time of day caller can be reached: any Patient advised that office/PCP has 24-48 business hours to return their call: Yes- please notify patient via Mediot when sent [place] [address] Patient out of medication. Medication name: gabapentin [...] medication tab): 09/30/24 Updated/Validated preferred pharmacy: Yes- [id number] - [place], [place] - [address] [facility] Patient instructed to contact the pharmacy prior to picking up the medication: Yes [facility] 36 Chart reviewed for compliance with [facility] refill guidelines. Screening criteria met. Last appointment 12/10/24. Next appointment 03/13/25. Last labs . Please review and send prescription as appropriate. If no future appointment noted, the last office visit notes were reviewed to determine follow-up time frame and this note forwarded to front end developer designer to schedule. [facility] 36on 12-28-2024 36 S: Patient huye gainesd the clinical access center requesting refills [...] medicines) Protocols used: Medication Refill and Renewal [id number] 2912-10-2024 29 Addended by: PAT ALEJANDRE on: 03/11/2025 04:25 PM Modules accepted: Orders [facility] 37on 12-10-2024 37 Please call [phone] to schedule an appointment for your mammogram. [facility] Progress Noteon 12-10-2024 Progress Note Recheck urine to con firm previous abnormality Currently on ARB [facility] Progress Note Overall controlled o n Imipramine 100 mg but having to occasionally take an extra 50 mg Will send PRN refill to pharmacy She will let me know via MyChart if having to use extra 50 mg more frequently in the week/month Normal [facility] Progress Note Controlled After addressing medication(s) compliance, adverse effects, and efficacy of treatment(s), medications for this controlled chronic condition will be continued. UDS ordered Normal [facility] Progress Note Prechart note: (the following data was documented before the visit began) Rooming: vv Possible agenda: Provider notes: next LTOT 03/13/25; urine ordered On Imipramine 100 mg (2-50mg) - ok? Multidisciplinary team needs: Health Maintenance to be addressed today: mammo; CRC, labs - endo not ordering TSH, CMP, lipid? [place] Medicaid Search by Drug Name [place] Medicaid Drug List Health Maintenance Due Topic Date Due Diabetes: Celiac Disease Screening Never done Colorectal Cancer Screening Never done MMR Vaccines (1 of 1 - Standard series) Never done Diabetes: Foot Exam Never done Diabetes: Dental Exam Never done Mammogram Never done COVID-19 Vaccine () 04/28/2024 Diabetes: Estimated Glomerular Filtration Rate for Kidney Health 09/21/2024 Lipid Panel 09/21/2024 (end precharting)- [facility] [place] - [address]LO[address] [facility] [address] Dept: [phone] Dept Loc: [phone] Patient was seen today via Telehealth by [...] stated that they are currently in the [facility]. If the patient is a minor, permission [...] pharmacy She will let me know via [employer] if having to use extra 50 mg more frequently in the week/month Orders: - Comprehensive metabolic panel 3. 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 [employer] PAIN MANAGEMENT DRUG PANEL Date Value Ref Range Status 03/16/2022 NEGATIVE NA Final No results f (more content not included)... Normal [facility] POCT UA Automated manually r esultedon 10-30-2024 Appearance (U) Clear Clear [facility] Work Phone: Glucose Test strip (U) [Mass/Vol] Negative NEGATIVE mg/dl [facility] Work Phone: Hemoglobin Ql (U) Negative NEGATIVE [facility] Work Phone: [phone] Interpretation and review of laboratory results Abnormal [facility] Work Phone: Leukocyte esterase Test strip Ql (U) SMALL (1+) Abnormal NEGATIVE [facility] Work Phone: Nitrite Ql (U) Positive Abnormal NEGATIVE [facility] Work Phone: pH (U) 5.5 [pH] No Reference Range Established [facility] Work Phone: [phone] POC Bilirubin, Urine Negative NEGATIVE [facility] Work Phone: POC Color, Urine Yellow Straw, Yellow, Light-Yellow [facility] Work Phone: POC Ketones, Urine Negative NEGATIVE mg/dl [facility] Work Phone: POC Protein, Urine Negative NEGATIVE mg/dl [facility] Work Phone: POC Specific [place], Urine 1.015 1.005 - 1.035 [facility] Work Phone: POC Urobilinogen, Urine 0.2 0.2, 1.0 EU/DL [facility] Work Phone: [facility] Work Phone: 36on 09-30-2024 36 Name of caller: Octavio vela Contact phone number: [phone] Relationship to Patient: spouse/SO Provider: Dr. Addison Practice: [facility] Chief Complaint/Reason for Call: Jael called in [...] business hours to return their call: Yes [facility] 36 Name of caller: Octavio vela Marcelino Contact phone number: [phone] Relationship to Patient: spouse/SO Provider: Dr. Addison Practice: [facility] Chief Complaint/Reason for Call: Caller was calling in to make sure the CITIA message for a Rx refill was received, see message above. Caller stated pt is out of this medication and will need this filled today. Caller also wants to make sure that this will be sent to: [facility] [address] [place] [address] Ph. [phone] Please advise. Thank you. Best time of day caller can be reached: Any Patient advised that office/PCP has 24-48 business hours to return their call: Yes [facility] [employer] [facility] 36 duplicate [facility] 36 Last apt 09/19/24. Ne xt apt 12/10/24 [facility] Progress Noteon 09-25-2024 Progress Note Living with [...] that they are currently in the state [facility]. If the patient is a minor, permission has been obtained by the parent or guardian for the patient to receive medical care at this visit. Time in 10:50am / Time out 11:40am Total Time: 50 minutes Patient Consent : [facility] discussed role and services including limits to [...] dogs Support System: , dad lives in [place], mom a little over a year ago. Son, Edward who lives across the street. Expecting a baby in April. Family Mental Health Hx: no Explain: Education: some college Employment: no If Unemployed Receiving Disability: no Disability Pending?: no Desire to return to work: no Financial Concerns: no Legal Concerns: no Alcohol Use: none Substance Use: none Hx of Trauma: no Spiritual: Temple but not over the top, believe in [...] campus Outpati (more content not included)... Normal [facility] 36on 09-20-2024 36 Lab add-on was sent to lab via right fax. Your fax has been successfully sent to Lab add-on at [phone]. 09/20/2024 9:58:09 AM Transmission Record Sent to [phone] with remote ID [id number] Result: (0) Success Page record: 1 - 2 Elapsed time: 01:07 on channel 54 09/20/2024 9:57:37 AM Conversion Record Successfully created cover sheet. Type: application/vnd.openxmlfo ats-officedocument.word processingml.document G3 to TIFF #1: Success [image/g3] (32ms) GhostScript TIFF #1: Success [image/tiff] (218ms) Resubmitted: [application/postscript] Word Automation #1: Success [image/tiff] (1733ms) ([id number]) 09/20/2024 9:57:19 AM Conversion Record [[id number].PRT] Type: application/postscript G3 to TIFF #1: Success [image/g3] (43ms) GhostScript TIFF #1: Success [image/tiff] (281ms) ([id number]) 09/20/2024 9:57:08 AM Origin Record Created by ANTHONY [facility] 36 ----- Message from Niecy Addison DO sent at 09/20/2024 9:06 AM EST ----- Please call toxicology for add-on order to urine collected 1/23/25 - EPIC orders have been entered Normal [facility] No Panel InformationOrdered By: Agapito Zhao on 09-20-2024 FENTANYL SCREEN, URINE Positive Negative [facility] Fentanyl has been screened for by Immunoassay at a 1 ng/ml threshold. POSITIVE results are not confirmed by a more specific alternative method unless requested. If confirmation is needed, request confirmation under separate order. NOTE: These results are for medical treatment only. Analysis performed using non-forensic procedures. [facility] 29on 09-19-2024 29 Addended by: NIECY ADDISON on: 09/20/2024 09:06 AM Modules accepted: Orders Normal [facility] FENTANYL, URINEon 09-19-2024 FENTANYL SCREEN, URINE Positive Normal Negative [facility] Comment on above: Result Comment: BLAYNE R [...] non-forensic procedures. Performed By: #### L [id number] ####Credit Administration Manager: VITA COOPER ([id number])[address] MICROALBUMIN / CREATININE UR INE RATIOon 09-19-2024 CREATININE, URINE 53.0 mg/dL Normal 47.0-110.0 [facility] Comment on above: Performed By: #### L [id number] ####Credit Administration Manager: VITA COOPER ([id number])[facility])[address] [place] [address] MICROALBUMIN, URINE 30.3 ug/mL Normal [facility] Comment on above: Result Comment: ORDE R COMMENTS: Microalbumin concentrations <30 are considered normal, 30-300 are considered microalbuminuria (or risk of diabetic nephropathy), and >300 are considered clinical albuminuria (clinical nephropathy). Diabetes Care,27, Supplement 1, [id number], 2004 Performed By: #### L [id number] ####Credit Administration Manager: VITA COOPER ([id number])[facility] ([facility])[address] [place] [address] [place] MICROALBUMIN/CREATIN INE RATIO 57 mg/g High <30 [facility] Comment on above: Performed By: #### L [id number] ####Credit Administration Manager: VITA COOPER ([id number])[facility] ([facility])[address] [place] [address] Microalbumin/Creatinine rati o panel (U)Ordered By: Tiffanie Martinez on 09-19-2024 Albumin DL <= 20 mg/L (U) [Mass/Vol] 30.3 ug/mL [facility] Albumin/Creatinine DL <= 20 mg/L (U) [Mass ratio] 57 mg/g High NINF - 30 mg/g [facility] CREATININE, URINE 53 mg/dL 47.0 - 110 .0 mg/dL [facility] Interpretation and review of laboratory results Abnormal [facility] Microalbumin concentrations <30 are considered normal, 30-300 are considered microalbuminuria (or risk of diabetic nephropathy), and >300 are considered clinical albuminuria (clinical nephropathy). Diabetes Care,27, Supplement 1, [id number], 2004 [facility] No Panel InformationOrdered By: Eleazar Caal on 09-19-2024 PAIN MANAGEMENT PANEL, UR Negative [facility] REVIEWED BY Tawny Caal [facility] The following were t ested for [...] been determined by the clinical laboratories of [facility]. [facility] Office Visiton 09-19-2024 Follow-up visit [id number] Rebeca Benson 1965 Date Provider Department Center 09/19/2024 NIECY ERWIN [facility] None Family History Problem Relation Age of [...] Father Alive Sister Paternal Grandmother Level of Service:22425 MD OFFICE/OUTPATIENT ESTABLISHED MOD MDM 30 MIN Reason for Visit and Comments: Follow-up [[id number]] Normal [facility] PAIN MANAGEMENT PANELon 08-29 PAIN MANAGEMENT PANEL, UR Negative Normal [facility] Comment on above: Performed By: #### L [id number] ####Credit Administration Manager: VITA COOPER ([id number])[facility] [employer] REVIEWED BY Tawny Caal [facility] Comment on above: Result Comment: BLAYNE [...] been determined by the clinical laboratories of [facility]. Performed By: #### L [id number] ####Credit Administration Manager: VITA COOPER ([id number])[facility] ([facility])[address] [place] [address] Progress Noteon 09-19-2024 Progress Note Controlled After addressing medication(s) compliance, adverse effects, and efficacy of treatment(s), medications for this controlled chronic condition will be continued. Normal [facility] Progress Note Controlled After addressing medication(s) compliance, adverse effects, and efficacy of treatment(s), medications for this controlled chronic condition will be continued. Normal [facility] Progress Note Controlled After addressing medication(s) compliance, adverse effects, and efficacy of treatment(s), medications for this controlled chronic condition will be continued. [facility] to meet with patient for Living with Pain evaluation Yearly LTOT paperwork filled out today Normal [facility] Progress Note Visit reason: LTOT Patient does not admit to respiratory symptoms of cough, congestion, shortness of breath, or fever. Additional information: Medications needing to be refilled: no Patient was able to ambulate safely to the examination room. Provider was not notified of possible fall risk. Personal Financial Advisor: not offered, due to no disrobing or intimate exam anticipated PHQ2: negative Suicidal ideation: absent Food insecurity screening: negative Grade Recorder used: no Normal [facility] Progress Note Prechart note: (the following data was documented before the visit began) Rooming: Yearly LTOT packet (found in black bins in clinic), urine for UDS, PHQ9 Possible agenda: LTOT Provider notes: Multidisciplinary team needs: [facility] assessment? Health Maintenance to be addressed today: [...] Rate for Kidney Health 09/21/2024 (end precharting)- [facility] - [address]LO[address] [facility] [address] Dept: [phone] Dept Loc: [phone] Assessment/Plan 1. Chronic painful diabetic neuropathy (CMS/HCC) (HCC) Assessment & Plan: Controlled After addressing medication(s) compliance, adverse effects, and efficacy of treatment(s), medications for this controlled chronic condition will be continued. [facility] to meet with patient for Living with [...] controlled chronic condition will be continued. 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 [employer] PAIN MANAGEMENT DRUG PANEL Date Value Ref [...] normal a (more content not included)... Normal [facility] CNOVon 07-22-2024 CNOV Office Visit (SLEWST ) ----- JAEL BENSON ([id number]) 1965 F Date Time Provider Department 07/22/24 3:30 PM KOKI PEÑA During your visit today, we recorded the following information about you: Pulse Respiration Blood pressure Weight 92/minute 16/minute 119/73 91.2 kg Koki Peña APRN.CNP 07/28/2024 6:02 AM Signed [facility] New Patient Evaluation PATIENT [...] has gained 22 pounds since 6 mos. [place] Sleepiness Scale: Sitting and readin Watching TV: [...] near accidents due to drowsy drivin 07/16/2024 [place] Sleepiness Scale Score Incomplete 07/16/2024 PROMIS CAT [...] I (j (more content not included)... Normal [facility] CNOVon 07-17-2024 CNOV Office Visit (ENDOMN ) ----- JAEL BENSON ([id number]) 1965 F Date Time Provider Department 07/17/24 2:30 PM ROJAS JACKSON During your visit today, we recorded the following information about you: Pulse Blood pressure Weight 87/minute 144/55 91.6 kg Obinna Brandt MA 07/17/2024 2:15 PM Signed Thank you for choosing the [facility] Department of Endocrinology, Diabetes and Metabolism. Did you know that you need to call 48 hours in advance of your scheduled visit, if you are unable to make your appointment? The End[facility]inology [facility] Metabolism [place] thanks you for your commitment, because patients not showing to their appointment results in a lost opportunity for patients to receive [facility] health care at the [facility]. To Cancel an appointment, please choose one of the following: - Call the Appointment Call Center at [phone] - From [facility], Go to Appointments - Cancel Appts If cancelling, consider your need to reschedule to prevent further delays in your care. To Schedule an appointment, please choose one of the following: - Call the Appointment Call Center at [phone] - From [facility], Go to Appointments - Request an Appt [...] NEUROPLASTY AND/ (more content not included)... Normal [facility] Hugo 06-14-2024 [facility]N [facility] ----- MARCELINOJAEL Longoria ([id number]) 1965 F Date Time Provider Department 06/14/24 CASSANDRA JACKSON During your visit today, we recorded the following information about you: Tiffanie Grimes 06/14/2024 9:11 AM Signed Received a DWO for CGM Form from [employer] for sensors and transmitter. Completed clerical portions of the form and submitted to the provider to complete, review, and sign. DWAYNE URIARTE Suture Winder Hand II Endocrinology AND Metabolism [facility] X-20 Shi Pendleton MA 06/18/2024 8:51 AM Signed Completed form faxed to [employer] at [phone]. Transmission successful. Sent for scanning Shi Pendleton Suture Winder Hand II Endocrinology AND Metabolism [facility] F20 AND X20 Shi Pendleton MA 06/18/2024 10:34 AM Signed Form scanned to chart Shi Pendleton Suture Winder Hand II [facility] Metabolism [facility] F20 AND X20 Allergies As [...] DWO for CGM - Sensors AND Transmitter [bulletn.] Prescriptions as of 06/18/2024 - Blood-Glucose Sensor (DEXCOM G6 SENSOR) jeff Use as directed to monitor blood glucose 4-6 times per day. ICD-10: E10.65 ICD-10: E11.65 (insulin dependent) - Blood-Glucose Transmitter (DEXCOM G6 TRANSMITTER) jeff 1 Device every 10 days. - Blood-Glucose Meter,Continuous (DEXCOM G6 FIELD TRAINING AGENT) misc Use as directed to monitor blood glucose 4-6 times per day. ICD-10: E10.65 ICD-10: E11.65 (insulin dependent) - Blood-Glucose Meter,Continuous (DEXCOM G7 FIELD TRAINING AGENT) misc 1 Each every 10 days. - aspirin, enteric coated (ASPIRIN, ENTERIC COATED) 81 mg EC tablet Take 1 tablet by mouth once daily. - ADULT MUTIVITAMIN W/ EXTRA D GUMMY Take by mouth. - Blood-Glucose Meter,Continuous (DEXCOM G7 FIELD TRAINING AGENT) misc Use as directed to monitor blood [...] 3 mg/actuation nasal spray (BAQSIMI) Use 1 [place] in the nose as needed for low [...] as of 12/28/2012: ID # thru optum [id number] Problem List As Of Date 06/14/2024 Noted [...] 1 d (more content not included)... Normal [facility] Progress Noteon 06-13-2024 Progress Note Controlled After addressing medication(s) compliance, adverse effects, and efficacy of treatment(s), medications for this controlled chronic condition will be continued. Normal [facility] Progress Note Controlled After addressing medication(s) compliance, adverse effects, and efficacy of treatment(s), medications for this controlled chronic condition will be continued. Normal [facility] Progress Note Controlled After addressing medication(s) compliance, adverse effects, and efficacy of treatment(s), medications for this controlled chronic condition will be continued. Asymptomatic Normal [facility] Progress Note Controlled After addressing medication(s) compliance, adverse effects, and efficacy of treatment(s), medications for this controlled chronic condition will be continued. UDS results pending Yearly LTOT paperwork and meet with [facility] at next visit [facility] Progress Note [facility] [place] - [address] [place] [address] Dept: [phone] Dept Loc: [phone] Patient was seen today via Telehealth by [...] stated that they are currently in the [facility]. If the patient is a minor, permission [...] pending Yearly LTOT paperwork and meet with [facility] at next visit Orders: - gabapentin (Neurontin) [...] Mon06/08/2025, Normal 4. Coronary artery disease involving [place] coronary artery of [place] heart without angina pectoris Assessment & Plan: [...] [facility] Controlled Substances Monitoring: No data to display (more content not included)... Normal [facility] FENTANYL AND METAB, UR QNT ( BKR [employer])on 06-11-2024 [facility] FENTANYL 21.30 ng/mL Normal [facility] Comment on above: Performed By: #### L [id number] ####[facility] (Disrupt CK)[address] [place], [place] [employer] [facility] FENTANYL See Below [facility] Comment on above: Performed By: #### L [id number] ####[facility] [facility] (PigafeBEMediaMogul)[address] [place], [place] [employer] [facility] NORFENTANYL See Below [facility] Comment on above: Result Comment: BLAYNE Salinas COMMENTS: Drug Monitor, Fentanyl, QN, Urine: \X09\SEE BELOW Test ordered Result Cutoff Fentanyl 21.30 H <0.50 ng/mL Norfentanyl >500 H <0.50 ng/mL Fentanyl Comments See LDT message See Fentanyl Message Test Performed by Sung Medina [employer] [place], [address] [place], [place] Tutu Newman M.D., Ph.D., Director of Laboratories , CLIA [id number] Notes and Comments: \X09\ This drug testing is for medical treatment only. Analysis was performed as non-forensic testing and these results should be used only by healthcare providers to render diagnosis or treatment, or to monitor progress of medical conditions. LDT Message: This test was developed and its analytical performance characteristics have been determined by [employer] [place], [place]. It has not been cleared or approved by the U.S. Food and Drug Administration. This assay has been validated pursuant to the CLIA regulations and is used for clinical purposes. Fentanyl Message: Fentanyl, Norfentanyl detected is consistent with the use of the drug Fentanyl. Healthcare Providers needing Interpretation assistance, please contact us at [phone] ( ) M-F, 8am to 10pm EST Test Performed by [employer], [employer] [place], [address] [place], [place] Tutu Newman M.D., Ph.D., Director of Laboratories , CLIA [id number] Performed By: #### L [id number] ####[facility] (PigafeBEMediaMogul)[address] [place], [place] [facility] NORFENTANYL >500 ng/mL [facility] Comment on above: Performed By: #### L [id number] ####[facility] (AMDBEAKER)[address] [place] [facility] 36on 05-23-2024 36 Chart reviewed for compliance with [facility] refill guidelines. Screening criteria met. Last appointment 03/27/2024. Next appointment 06/13/2024. Last labs n/a . Please review and send prescription as appropriate. If no future appointment noted, the last office visit notes were reviewed to determine follow-up time frame and this note forwarded to front end developer designer to schedule. [facility] 04-25-2024 CNPN Telephone (ENDCMN) ----- MARCELINOJAEL CASAS ([id number]) 1965 F Date Time Provider Department 04/25/24 CASSANDRA JACKSON During your visit today, we recorded the following information about you: Tiffanie Grimes 04/25/2024 11:54 AM Signed Received a prescription form from [facility] PHARMACY for patient's Omnipod 5 PODS. Completed clerical portion of the form and submitted to the provider to sign. DWAYNE URIARTE Suture Winder Hand II Endocrinology [facility] Metabolism [facility] X-20 [facility] 04/26/2024 9:54 AM Signed Received completed/signed form from provider. [phone] Transmitted successfully Sent to be scanned into chart [facility] Suture Winder Hand [facility] X20, F-20 [facility] 05/10/2024 11:14 AM Signed Indexed into patient's chart [facility] Suture Winder Hand [facility] X-20, F-20 Allergies As of Date: 04/25/2024 [...] - Fully Assessed Reason for Visit: Forms [383] Cmt: Prescription Form - Omnipod 5 PODS [bulletn.] Prescriptions as of 05/10/2024 - aspirin, enteric coated (ASPIRIN, ENTERIC COATED) 81 mg EC tablet Take 1 tablet by mouth once daily. - Blood-Glucose Meter,Continuous (DEXCOM G7 FIELD TRAINING AGENT) misc 1 Each. - ADULT MUTIVITAMIN W/ EXTRA D GUMMY Take by mouth. - Blood-Glucose Meter,Continuous (DEXCOM G6 FIELD TRAINING AGENT) misc Use as directed to monitor blood glucose 4-6 times per day. ICD-10: E10.65 ICD-10: E11.65 (insulin dependent) - Blood-Glucose Meter,Continuous (DEXCOM G7 FIELD TRAINING AGENT) misc Use as directed to monitor blood [...] 3 mg/actuation nasal spray (BAQSIMI) Use 1 [place] in the nose as needed for low [...] as of 12/28/2012: ID # thru optum [id number] Problem List As Of Date 04/25/2024 Noted [...] in ski (more content not included)... Normal [facility] CNOVon 04-24-2024 CNOV Office Visit (PNMDNA ) ----- JAEL BENSON ([id number]) 1965 F Date Time Provider Department 04/24/24 2:30 PM LOC HDEZ PNMDNA During your visit today, we recorded the following information about you: Loc Hdez MD 04/24/2024 4:12 PM Signed [facility] Department Date: April 24, 2024 [...] mouth once daily. Blood-Glucose Meter,Continuous (DEXCOM G7 FIELD TRAINING AGENT) misc 1 Each. ADULT MUTIVITAMIN W/ EXTRA D GUMMY Take by mouth. Blood-Glucose Meter,Continuous (DEXCOM G6 FIELD TRAINING AGENT) misc Use as directed to monitor blood glucose 4-6 times per day. ICD-10: E10.65 ICD-10: E11.65 (insulin dependent) Blood-Glucose Meter,Continuous (DEXCOM G7 FIELD TRAINING AGENT) misc Use as directed to monitor blood [...] 3 mg/actuation nasal spray (BAQSIMI) Use 1 [place] in the nose as needed for low [...] mouth once daily. Catheter 14-16 [facility]- [facility] a (more content not included)... Normal [facility] 36on 04-23-2024 36 Chart reviewed for compliance with [facility] refill guidelines. Screening criteria met. Last appointment 03/27/24. Next appointment 06/13/24. Last labs . Please review and send prescription as appropriate. If no future appointment noted, the last office visit notes were reviewed to determine follow-up time frame and this note forwarded to front end developer designer to schedule. Normal [facility] ----- JAEL BENSON ([id number]) 1965 F Date Time Provider Department 04/05/24 [...] once daily. - Blood-Glucose Meter,Continuous (DEXCOM G7 FIELD TRAINING AGENT) misc 1 Each. - ADULT MUTIVITAMIN W/ EXTRA D GUMMY Take by mouth. - Blood-Glucose Meter,Continuous (DEXCOM G6 FIELD TRAINING AGENT) misc Use as directed to monitor blood glucose 4-6 times per day. ICD-10: E10.65 ICD-10: E11.65 (insulin dependent) - Blood-Glucose Meter,Continuous (DEXCOM G7 FIELD TRAINING AGENT) misc Use as directed to monitor blood [...] 3 mg/actuation nasal spray (BAQSIMI) Use 1 [place] in the nose as needed for low [...] as of 12/28/2012: ID # thru optum [id number] Problem List As Of Date 04/05/2024 Noted Resolved ALLERGIC RHINITIS NOS [J30.9] 11/09/2001 Uncontrolled type 1 diabetes mellitus with opht*11/09/2001 JOINT PAIN-SHLDER [M25.519] 11/09/2001 ADV EFFECT MED/BIOL SUB NOS [995.2] 03/04/2002 URINARY OBSTRUCTION NOS [599.6] 06/20/2003 ASA CLASS II [1001] 06/20/2003 ABDOMINAL PAIN OTHER SPEC SITE [R10.9] 08 (more content not included)... Normal [facility] CNNURSEon 04-02-2024 CNNURSE Nurse Visit (EDEDME) ----- JAEL BENSON ([id number]) 1965 F Date Time Provider Department 04/02/24 [...] did not have the account linked to [employer] and did not bring their login information [...] needed This is a non-billable encounter through [employer] but will be billed to the following pump company: [employer]. This visit note will be communicated to [...] once daily. - Blood-Glucose Meter,Continuous (DEXCOM G7 FIELD TRAINING AGENT) misc 1 Each. - ADULT MUTIVITAMIN W/ EXTRA D GUMMY Take by mouth. - Blood-Glucose Meter,Continuous (DEXCOM G6 FIELD TRAINING AGENT) misc Use as directed to monitor blood glucose 4-6 times per day. ICD-10: E10.65 ICD-10: E11.65 (insulin dependent) - Blood-Glucose Meter,Continuous (DEXCOM G7 FIELD TRAINING AGENT) misc Use as directed to monitor blood [...] 3 mg/actuation nasal spray (BAQSIMI) Use 1 [place] in the nose as needed for low [...] losartan (C (more content not included)... Normal [facility] ----- JAEL BENSON ([id number]) 1965 F Date Time Provider Department 03/22/24 [...] not go through. I sent patient a [facility] message to call and schedule an appointment. [...] once daily. - Blood-Glucose Meter,Continuous (DEXCOM G7 FIELD TRAINING AGENT) misc 1 Each. - ADULT MUTIVITAMIN W/ EXTRA D GUMMY Take by mouth. - Blood-Glucose Meter,Continuous (DEXCOM G6 FIELD TRAINING AGENT) misc Use as directed to monitor blood glucose 4-6 times per day. ICD-10: E10.65 ICD-10: E11.65 (insulin dependent) - Blood-Glucose Meter,Continuous (DEXCOM G7 FIELD TRAINING AGENT) misc Use as directed to monitor blood [...] 3 mg/actuation nasal spray (BAQSIMI) Use 1 [place] in the nose as needed for low blood sugar. May repeat after 15 minutes using a new device if there is no response. - Blood-Glucose Sensor (DEXGenelux G6 SENSOR) jeff Use as directed to [...] as of 12/28/2012: ID # thru optum [id number] Problem List As Of Date 03/22/2024 Noted Resolved ALLERGIC RHINITIS NOS [J30.9] 11/09/2001 Uncontrolled type 1 diabetes mellitus with opht*11/09/2001 JOINT PAIN-SHLDER [M25.519] 11/09/2001 ADV EFFECT MED/BIOL SUB NOS [995.2] 03/04/2002 URINARY OBSTRUCTION NOS [599.6] 06/20/2003 ASA CLASS II [1001] 06/20/2003 ABDOMINAL PAIN OTHER SPEC SITE [R10.9] 04/03/2007 URETERIC OBSTRUCTION NEC [N13.5] 04/09/2007 HEARING LOSS NOS [H91.90] (more content not included)... Normal [facility] CNPNon 03-12-2024 CNPN Telephone (ENDOMN) ----- JAEL BENSON ([id number]) 1965 F Date Time Provider Department 03/12/24 ROJAS JACKSON During your visit today, we recorded the following information about you: Shi Pendleton MA 03/12/2024 1:45 PM Signed [facility] pharmacy calling to request verbal RX for the intro kit for Omni pod 5 and the pods. They state have sent several faxes but they are not transmitting to us. Please call [facility] at [phone] Allergies As of Date: 03/12/2024 Noted Allergy [...] once daily. - Blood-Glucose Meter,Continuous (DEXCOM G7 FIELD TRAINING AGENT) misc 1 Each. - ADULT MUTIVITAMIN W/ EXTRA D GUMMY Take by mouth. - Blood-Glucose Meter,Continuous (DEXCOM G6 FIELD TRAINING AGENT) misc Use as directed to monitor blood glucose 4-6 times per day. ICD-10: E10.65 ICD-10: E11.65 (insulin dependent) - Blood-Glucose Meter,Continuous (DEXCOM G7 FIELD TRAINING AGENT) misc Use as directed to monitor blood [...] 3 mg/actuation nasal spray (BAQSIMI) Use 1 [place] in the nose as needed for low [...] as of 12/28/2012: ID # thru optum [id number] Problem List As Of Date 03/12/2024 Noted [...] Status:Closed by SHI PENDLETON on 03/12/24 Normal [facility] Bacteria identifiedon 2023 Bacteria identified Cx Nom (U) Test: Urine Culture Specimen Source: Clean Catch/Voided Specimen Type: Urine Specimen Date: 02/16/2024 1606 Result Date: 02/18/2024 0811 Result Status: Final result Abnormal: No Resulting Lab: [facility] [address] [place] [address] CULTURE No significant growth Normal [facility] Comment on above: Performed By: #### 6 30-4 #### DAVIN Joshi ([id number]) [facility] ([facility]) [address] [place] [address] ALBUMIN/CREATININE RATIO, UR INEon 12-08-2023 Albumin DL <= 20 mg/L (U) [Mass/Vol] 12.2 mg/L [facility] Albumin/Creatinine (U) [Mass ratio] 18 mg/g <30 mg/g [facility] Creatinine (U) [Mass/Vol] 69.2 mg/dL 20.0 - 300.0 mg/dL [facility] Albumin DL <= 20 mg/L (U) [Mass/Vol] 12.2 mg/L Normal [facility] Comment on above: Order Comment: Speci men Type: URINE SPECIMENOrdering Facility: [facility] Address: [address] [place] [address] Performed By: #### U ACR ####[facility] [id number] [place] [address] [place] Albumin/Creatinine (U) [Mass ratio] 18 mg/g Normal <30 [facility] Comment on above: Order Comment: Speci men Type: URINE SPECIMENOrdering Facility: [facility] Address: [address] [place] [address] Result Comment: Adul t Male and Female Nephrotic Criteria: <30 mg/g is considered normal to mildly increased 30-300 mg/g is considered moderately increased >300 mg/g is considered severely increased KDIGO. (2013). KDIGO 2012 Clinical Practice Guideline for the Evaluation and Management of Chronic Kidney Disease. Official Journal of the International Society of Nephrology, 3(1), 1-150. Performed By: #### U ACR ####[facility] [id number] [place] [address] [place] Creatinine (U) [Mass/Vol] 69.2 mg/dL Normal 20.0-300.0 [facility] Comment on above: Order Comment: Speci men Type: URINE SPECIMENOrdering Facility: [facility] Address: [address] [place] [address] Performed By: #### U ACR ####[facility] [id number] [address] [place] CNCOon 12-08-2023 CNCO Letter Text Normal [facility] CNOVon 12-08-2023 CNOV Office Visit (ENDOMN ) ----- JAEL BENSON ([id number]) 1965 F Date Time Provider Department 12/08/23 10:00 AM ROJAS JACKSON During your visit today, we recorded the following information about you: Pulse Blood pressure Weight Height 85/minute 146/64 82.1 kg 1.59 m Kori Sweeney 12/08/2023 9:52 AM Signed Thank you for choosing the [facility] Department of Endocrinology, Diabetes and Metabolism. Did you know that you need to call 48 hours in advance of your scheduled visit, if you are unable to make your appointment? The End[facility]inology [facility] Metabolism [place] thanks you for your commitment, because patients not showing to their appointment results in a lost opportunity for patients to receive [facility] health care at the [facility]. To Cancel an appointment, please choose one of the following: - Call the Appointment Call Center at [phone] - From [facility], Go to Appointments - Cancel Appts If cancelling, consider your need to reschedule to prevent further delays in your care. To Schedule an appointment, please choose one of the following: - Call the Appointment Call Center at [phone] - From [facility], Go to Appointments - Request an Appt Lisa Shelby MD 12/25/2023 4:47 PM [facility] INITIAL DIABETES ASSESSMENT [...] Refill aspir (more content not included)... Normal [facility] Laboratory - Drug toxicology on 09-25-2023 fentaNYL (U) [Mass/Vol] 35.1 ng/mL [facility] Comment on above: INTERPRETIVE INFORMA TION: Fentanyl [...] developed and its performance characteristics determined by [employer]. It has not been cleared or approved by the US Food and Drug Administration. This test was performed in a CLIA certified laboratory and is intended for clinical purposes. Norfentanyl (U) [Mass/Vol] 342.2 ng/mL [facility] Comment on above: Performed By: [facility] [address] Automotive Repair Technician: Eliceo Nogueira MD, PhD CLIA Number: [id number] No Panel Informationon 09-25 [facility] Comprehensive metabolic 1998 panelon 09-21-2023 Albumin [Mass/Vol] 4.3 g/dL 3.5 - 5.0 g/dL [facility] ALP [Catalytic activity/Vol] 57 U/L 38 - 126 U/L [facility] ALT [Catalytic activity/Vol] 25 U/L 0 - 34 U/L [facility] Anion gap [Moles/Vol] 9 mmol/L 3 - 13 mmol/L [facility] AST [Catalytic activity/Vol] 50 U/L High 15 - 46 U/L [facility] Bilirubin [Mass/Vol] 0.5 mg/dL 0.2 - 1 .3 mg/dL [facility] Calcium [Mass/Vol] 9.7 mg/dL 8.4 - 10. 4 mg/dL [facility] Chloride [Moles/Vol] 97 mmol/L Low 98 - 10 7 mmol/L [facility] CO2 [Moles/Vol] 28 mmol/L 22 - 30 mmol/L [facility] Creatinine [Mass/Vol] 1.21 mg/dL High 0.52 - 1.04 mg/dL [facility] GFR/1.73 sq M.predicted MDRD (S/P/Bld) [Vol rate/Area] 52.4 mL/min/{1.73_m2} Low - PINF [facility] Comment on above: Calculation based on the Chronic Kidney Disease Epidemiology Collaboration (CKD-EPI) equation refit without adjustment for race Glucose [Mass/Vol] 195 mg/dL High 70 - 100 mg/dL [facility] Interpretation and review of laboratory results Abnormal [facility] Potassium [Moles/Vol] 4.0 mmol/L 3.5 - 5.1 mmol/L [facility] Protein [Mass/Vol] 7.6 g/dL 6.3 - 8.2 g/dL [facility] Sodium [Moles/Vol] 134 mmol/L Low 135 - 145 mmol/L [facility] Urea nitrogen [Mass/Vol] 31 mg/dL High 7 - 17 mg/dL [facility] No Panel InformationOrdered By: Aleja Esparza on 09-21-2023 PAIN MANAGEMENT PANEL, UR Negative [facility] REVIEWED BY Tawny Esparza [facility] The following were t ested for in [...] been determined by the clinical laboratories of [facility]. [facility] [employer] POCT UA Automated manually r esultedon 06-28-2023 Appearance (U) Clear Clear [facility] Work Phone: [phone] Glucose Test strip (U) [Mass/Vol] Negative NEGATIVE mg/dl [facility] Work Phone: [phone] Hemoglobin Ql (U) TRACE-Intact Abnormal NEGATIVE Unive [facility] Work Phone: [phone] Interpretation and review of laboratory results Abnormal [facility] Work Phone: [phone] Leukocyte esterase Test strip Ql (U) Negative NEGATIVE [facility] Work Phone: [phone] Nitrite Ql (U) Negative NEGATIVE [facility] Work Phone: [phone] pH (U) 5.0 [pH] No Reference Range Established [facility] Work Phone: [phone] POC Bilirubin, Urine Negative NEGATIVE [facility] Work Phone: [phone] POC Color, Urine Yellow Straw, Yellow, Light-Yellow [facility] Work Phone: [phone] POC Ketones, Urine Negative NEGATIVE mg/dl [facility] Work Phone: [phone] POC Protein, Urine Negative NEGATIVE, 30 (1+) mg/dl [facility] Work Phone: [phone] POC Specific [place], Urine 1.025 1.005 - 1.035 [facility] Work Phone: POC Urobilinogen, Urine 0.2 0.2, 1.0 EU/DL [facility] Work Phone: [facility] Work Phone: Office Visit (Urology)on Follow-up visit Diagnoses/Problems Assessed Frequent UTI (599.0) (N39.0) Asthma (493.90) (J45.909) Neuropathy (355.9) (G62.9) Renal disease (593.9) (N28.9) Orders Frequent UTI Follow-up visit in 3 months Outpatient Follow-up ESTABLISHED PT Status: Hold For - Scheduling Requested for: [id number] Ordered Stat;For: Frequent UTI; Ordered By: Gavin [...] 4 MG TABS Vitals Vital Signs Recorded: [id number] 03:22PM Squmul893 lb 2 oz Tobacco Useb) No PHQ-2 [...] a) No falls within the last year IH-Ehltgik-D [facility] Work Phone: Tobacco use status [facility]PH[facility] b) No PY-Hlxrrxn-K [place] Work Phone: [phone] Tobacco Screening. Yes MP-Uro logy-A [place] Work Phone: Radiologyon 04-11-2023 US Kidney - bilateral Please click on the link to view the study images Normal BV-Cuhxsqj-R [place] Work Phone: US Kidney - bilateral Normal [facility] DO Work Phone: ED NOTEon 04-06-2023 ED NOTE HNO ID: [id number] Author: Viat Ang, AUDRA Service: Emergency Medicine Author Type: Registered Nurse Type: ED Notes Filed: 04/06/2023 7:41 PM Note Text: Patient informed: the name of medication, why we are giving it, possible side effects, what they may expect to feel, and was offered a chance to ask questions, prior to the administration of bacitracin and keflex Normal [facility] ED NOTE HNO ID: [id number] Author: Vannesa Bartlett, AUDRA Service: Nursing Author Type: Registered Nurse Type: ED Notes Filed: 04/06/2023 7:12 PM Note Text: Pt reports bug bite 2 weeks ago and pt and noticed wound has been getting red and L ankle is swelling. Normal [facility] ED PROV NOTEon 04-06-2023 ED PROV NOTE HNO ID: [id number] Author: Jordy Tyson MD Service: Emergency Medicine [...] MD MARBELLA Haro SCOTT 04/07/23 0157 Normal [facility] IO UA (automated w/o microsc opy)on 03-29-2023 Protein (U) [Mass/Vol] Negative MA-Uoenzqy-O [facility] Work Phone: IO UA (automated w/o microscopy) Negative GL-Bvyjztg-N [facility] Work Phone: IO UA (automated w/o microscopy) Normal (0.2-1.0 mg/dl) [facility]: IO UA (automated w/o microscopy) 5.5 1 GG-Totqcxp-J [place] Work Phone: IO UA (automated w/o microscopy) 1.015 1 UF-Yjlvlhm-C [place] Work Phone: IO UA (automated w/o microscopy) [facility] Work Phone: IO UA (automated w/o microscopy) Yellow DE-Vlomdfu-B [place] Work Phone: [phone] Office Visit (Urology)on Follow-up visit Diagnoses/Problems [...] TABS Vitals Vital Signs Recorded: 29Mar2023 03:28PM Hlkcogls244 Peabcxwlo59 Nwwsoe730 lb Tobacco Useb) No Falls Screening (Age 18+)a) No falls within the last year Physical Exam A/O x 3 in No apparent distress Constitutional: General appearance normal Respiratory: Respiratory effort is normal Gastrointestinal:Abdomen is not tender Genitourinary: Kidneys: Not palpable Bilaterally Bladder: Not palpable or tender Results/Data IO UA (automated w/o microscopy)[id number] 03:41PMGavin Otto II Test NameResultFlagReference IO ColorYellow [...] Mar 29 2023 3:49PM EST (Author) Normal [facility] Tobacco Screening.on 023 Fall risk assessment a) No falls within the last year LB-Bmdybgn-I [place] Work Phone: Tobacco use status [facility] b) No RE-Rkgrqtp-M [place] Work Phone: Fentanyl & Metab, Ur Qnton 0 12-17-2022 fentaNYL (U) [Mass/Vol] 24.9 ng/mL [facility] Comment on above: INTERPRETIVE INFORMA TION: [...] developed and its performance characteristics determined by [facility]. It has not been cleared or approved by the US Food and Drug Administration. This test was performed in a CLIA certified laboratory and is intended for clinical purposes. Norfentanyl (U) [Mass/Vol] 370 ng/mL [facility] Comment on above: Performed By: SOHAM Joshi [address] [address] Automotive Repair Technician: Eliceo Nogueira MD, PhD [facility] No Panel InformationOrdered By: Gina Liao on 12-14-2022 PAIN MANAGEMENT PANEL, UR Negative [facility] REVIEWED BY Luz Liao [facility] alth The following were t ested [...] been determined by the clinical laboratories of [facility]. [facility] CNOVon 09-22-2022 CNOV Office Visit (PNHM) ----- JAEL BENSON ([id number]) 1965 F Date Time Provider Department 09/22/22 8:15 AM [facility] During your visit today, we recorded the following information about you: Katelynn Lewis, PhD 09/22/2022 1:10 PM Signed [facility] PAIN MANAGEMENT BEHAVIORAL MEDICINE EVALUATION REFERRING PHYSICIAN: Sharan Mendoza MD; Alban Batres PA-C ATTENDING PHYSICIAN: Katelynn Lewis, PHD Jael Benson PATIENT TYPE: PNC : 1965 DATE OF SERVICE: September 22, 2022 IDENTIFYING INFORMATION Jael Besnon is a 57 year old female from [place], [place], who was referred for evaluation by [...] and [address] [place] in the [place] area without significant relief. She has had [...] times anny (more content not included)... Normal [facility] Endocrinology Visit Reporton 09-15-2022 Endocrinology Visit Report [facility] [address] [place] [address] OFFICE VISIT Date of Service: 09/15/22 MR#: [id number] Acct: [id number] Name: JAEL BENSON Rep #: [id number] : 1965 Provider: KULWINDER hernandez Age/Sex: 57/F Location: [facility] Status: Signed Intake Vital Signs 09/15/22 13:52 Height 5 ft 3 in Weight: 177 lb 4 oz BMI 31.4 BP 116/58 L Blood Pressure Location Lt brachial Position Sitting Respiration 18 Pulse 85 Pulse Source Monitor Temp 95.5 F L Temp Source Temporal Pulse Oximetry (%) 95 Oxygen Delivery Method room air Intake Visit Reasons: 3 M FU Chief Complaint: f/u diabetes Grade Recorder Required: No Accompanied by: Is patient in [...] Adverse Reaction (Intermediate, Verified 09/15/22 13:54) anxious [facility] Medical History Allergic rhinitis Arthritis Asthma Asthma [...] obese Orientation: alert, awake and oriented x3 HENCO Head: normal to inspection Ears: hearing grossly [...] normal Thou (more content not included)... Normal [facility] Laboratory - Drug toxicology on 09-06-2022 fentaNYL (U) [Mass/Vol] 15.6 ng/mL [facility] [employer] Comment on above: INTERPRETIVE INFORMA TION: Fentanyl [...] developed and its performance characteristics determined by [employer]. It has not been cleared or approved by the US Food and Drug Administration. This test was performed in a CLIA certified laboratory and is intended for clinical purposes. Norfentanyl (U) [Mass/Vol] 298.4 ng/mL [facility] [employer] Comment on above: Performed By: [place] [address] Automotive Repair Technician: Eliceo Nogueira MD, PhD No Panel Informationon 09-06 [facility] No Panel InformationOrdered By: Talib Smiley on 09-02-2022 FENTANYL SCREEN, URINE Positive Negative [facility] Fentanyl has been screened for by Immunoassay at a 1 ng/ml threshold. POSITIVE results are not confirmed by a more specific alternative method unless requested. If confirmation is needed, request confirmation under separate order. NOTE: These results are for medical treatment only. Analysis performed using non-forensic procedures. [facility] Microalbumin/Creatinine rati o panel (U)on 09-01-2022 Albumin DL <= 20 mg/L (U) [Mass/Vol] 20.4 mg/L 0.0 - 29.9 mg/L [facility] Albumin/Creatinine DL <= 20 mg/L (U) [Mass ratio] 32.1 mg/g High 0.0 - 29.9 mg/g [facility] CREATININE, URINE 63.6 mg/dL No Range [facility] ealt Interpretation and review of laboratory results Abnormal [facility] Microalbumin concentrations <30 are considered normal, 30-300 are considered microalbuminuria (or risk of diabetic nephropathy), and >300 are considered clinical albuminuria (clinical nephropathy). Diabetes Care,27, Supplement 1, T40-12, 2004 [facility] No Panel InformationOrdered By: Charline Villafana on 09-01-2022 PAIN MANAGEMENT PANEL, UR Negative [facility] REVIEWED BY Alex Villafana [facility] The following were t ested for [...] been determined by the clinical laboratories of [facility]. [facility] Influenza virus A and B RNA and SARS-CoV-2 (COVID-19) N gene panel MEENA+probe (Resp)on 08-26-2022 FLUAV RNA MEENA+probe Ql (Unsp spec) Negative Negative for Influenza A by RT-PCR [facility] FLUBV RNA MEENA+probe Ql (Unsp spec) Negative Negative for Influenza B by RT-PCR [facility] SARS-CoV-2 (COVID-19) RNA MEENA+probe Ql (Resp) SARS-CoV-2 (Agent of COVID-19) Not Detected by RT-PCR or equivalent method. Not Detected [facility] EMG(NEURO/NI)on 07-01-2022 [facility] EMG(NEURO/NI)on 06-03-2022 [facility] MRI CERVICAL SPINE WO IVCONo n 05-25-2022 [...] vertebrae with counting from the craniocervical junction. Residential Monitor: [facility] Transcribe Date/Time: May 26 2022 11:59A Dictated by : ALFIE CARRANZA MD This examination was interpreted and the report reviewed and electronically signed by: ALFIE CARRANZA MD on May 26 2022 12:03PM EST [id number] Normal [facility] MRI LUMBAR SPINE WO IVCONon 05-25-2022 MRI [...] and assume there are 5 lumbar-type vertebrae. Residential Monitor: [facility] Transcribe Date/Time: May 26 2022 11:50A Dictated by : ALFIE CARRANZA MD This examination was interpreted and the report reviewed and electronically signed by: ALFIE CARRANZA MD on May 26 2022 11:55AM EST [id number] Normal [facility] MRI THORACIC SPINE WO IVCONo n 05-25-2022 [...] and assume there are 5 lumbar-type vertebrae. Residential Monitor: [facility] Transcribe Date/Time: May 26 2022 11:36A Dictated by : ALFIE CARRANZA MD This examination was interpreted and the report reviewed and electronically signed by: ALFIE CARRANZA MD on May 26 2022 11:49AM EST [id number] Normal [facility] Endocrinology Visit Reporton 05-19-2022 Endocrinology Visit Report [facility] [address] [place] [address] OFFICE VISIT Date of Service: 05/19/22 MR#: [id number] Acct: [id number] Name: JAEL BENSON Rep #: [id number] : 1965 Provider: KULWINDER hernandez Age/Sex: 56/F Location[facility] Status: Signed Intake Vital Signs 05/19/22 14:18 Height 5 ft 3 in Weight: 184 lb 8 oz BMI 32.6 BP 99/68 Blood Pressure Location Lt brachial Position Sitting Respiration 18 Pulse 89 Pulse Source Monitor Temp 96.4 F L Temp Source Temporal Pulse Oximetry (%) 97 Oxygen Delivery Method room air Intake Visit Reasons: 3 M FU Chief Complaint: f/u diabetes Grade Recorder Required: No Accompanied by: Is patient in [...] others. Currently having difficulty obtaining supplies from [employer]. CGM supplies now require peer to peer [...] normal affect (more content not included)... Normal [facility] Fentanyl Screen, Urineon Fentanyl Screen, Urn [...] Performed By: #### F ENTU PAINU #### [facility] [address], [place] Pain Management Panelon 02-26 Pain Management Panel, UR Negative [facility] Comment on above: Performed By: #### F ENTU PAINU #### [facility] [address], [place] Reviewed By Karely Hinojosa [facility] Comment on above: Performed By: #### F ENTU PAINU #### [facility] [address], [place] Pain Management Panelon 02-26 Comment See Below [facility] Comment on above: Result Comment: The following were tested for in the sample submitted at the listed thresholds: Amphetamines(1000ng/mL),Methamphetamine (1000 ng/mL),Cocaine and metabolites(300ng/mL),Codeine, Morphine,Hydrocodone,Hydromorphone(300 ng/mL each), Oxycodone(100 ng/mL), and THC metabolites(50 ng/mL). The sample was checked for dilution and substitution. NOTE: These results are for medical treatment only. Analysis performed using non-forensic procedures. Performed By: #### F ENTU PAINU #### [facility] [address], [place] HPV by PCRon 08-26-2021 Specimen type Nom (Spec) ThinPrep [facility] Comment on above: Performed By: #### H PVG #### [facility] [address], [place] HPV 16 Not detected Normal Not Detected [facility] Comment on above: Performed By: #### H PVG #### [facility] [address], [place] HPV 18 Not detected Normal Not Detected [facility] Comment on above: Performed By: #### H PVG #### [facility] [address], [place] Other High Risk HPV Not detected Normal Not Detected [facility] Comment on above: Performed By: #### H PVG #### [facility] [address] [facility] [place] [place] [address] SUPERVISOR CONDITIONING YARD Pathologyon 08-19-2021 SUPERVISOR CONDITIONING YARD Pathology [facility] [id number] DEPARTMENT OF PATHOLOGY AND [facility] LABORATORY MEDICINE [address] [place] [address] FINAL GYNECOLOGICAL CYTOLOGY REPORT NAME: JAEL BENSON : 1965 56 Y F BILLING NO.: [id number] LOCATION 1FPO PROCEDURE 08/19/2021 : DATE: ANSON ADDISON DO RECEIVED DATE: 08/19/2021 N: REPORT DATE: 08/25/2021 COPIES TO: SPECIMEN ADEQUACY The specimen is satisfactory for examination. Endocervical/transformati on component present. Partially obscuring inflammation present. GENERAL CATEGORIZATION NEGATIVE FOR SQUAMOUS INTRAEPITHELIAL LESION OR MALIGNANCY. CONCHITA KB5 Screened by Additionally reviewed SARINA LEE, by CT(ASCP) RELATED LABORATORY RESULTS: Lab#: [id number] Date Ordered: 08/19/2021 14:00 Test Name Collected [...] history and physical examination. Case reviewed at [facility] [address] [place] [address]. DEPARTMENT OF PATHOLOGY AND LABORATORY MEDICINE [place], [place] [email or web address] [facility] HPV by PCRon 08-19-2021 Note Comment [facility] Comment on above: Result Comment: The other high risk HPV results include HPV types: 31, 33, 35, 39, 45, 51, 52, 56, 58, 59, 66, and 68. Methodology: Kleber Yudelka HPV Assay Performed By: #### H PVG #### [place] [address], [place] Pain Management Panelon Pain Management Panel, UR Negative [facility] Comment on above: Result Comment: BRENDA ECTED RESULT...Previous above value was POSITIVE, verified on 07/30/21 at 09:15 by KARMA . Performed By: #### F ENTU PAINU #### [place] [address], [place] Reviewed By Jasiel Humphries [facility] Comment on above: Performed By: #### F ENTMercedes PAINU #### [place] [address], [place] Fentanyl Screen, Urineon Fentanyl Screen, Urn Positive Normal Negative [facility] Comment on above: Result Comment: Fent anyl has been screened for by Immunoassay at a 1 ng/ml threshold. POSITIVE results are not confirmed by a more specific alternative method unless requested. If confirmation is needed, request confirmation under separate order. NOTE: These results are for medical treatment only. Analysis performed using non-forensic procedures. Performed By: #### F ENTU PAINU #### [place] [address], [place] CR Shoulder 2+ Views Lefton 07-29-2021 CR Shoulder 2+ Views Left Patient Name: JAEL BENSON Diagnostic Radiology ACCESSION EXAM DATE/TIME PROCEDURE ORDERING PROVIDER [id number] 07/29/2021 15:03 EST CR Shoulder 2+ Views MD VAUGHN, CLAUDIO Palomino CPT code 91477 Reason For Exam (CR Shoulder 2+ Views [...] Transcribed Date and Time: 07/29/2021 3:21 Normal [facility] Pain Management Panelon - Comment See Below Normal [facility] Comment on above: Result Comment: The following were tested for in the sample submitted at the listed thresholds: Amphetamines(1000ng/mL),Methamphetamine (1000 ng/mL),Cocaine and metabolites(300ng/mL),Codeine, Morphine,Hydrocodone,Hydromorphone(300 ng/mL each), Oxycodone(100 ng/mL), and THC metabolites(50 ng/mL). The sample was checked for dilution and substitution. NOTE: These results are for medical treatment only. Analysis performed using non-forensic procedures. Performed By: #### F ENTU, PAINU #### [address] [address] CULTURE URINEon 04-16-2021 CULTURE URINE 1 Organism [...] 1 S Amikacin(YISEL) <= 2 S Normal [facility] Comment on above: Performed By: #### C /UR #### [address] [address] [id number] Fentanyl, UrineOrdered By: Yimi Addison on 03-19-2021 Fentanyl Positive Negative NA [facility] Work Phone: Comment on above: Fentanyl has been sc reened for by Immunoassay at a 2ng/ml threshold. POSITIVE results are not confirmed by a more specific alternative method unless requested. If confirmation is needed, request confirmation under separate order. NOTE: These results are for medical treatment only. Analysis performed using non-forensic procedures. No Panel InformationOrdered By: Niecy Addison on 03-19-2021 Test Performed by [facility], [address] [place] [address] [facility] Work Phone: [facility] Work Phone: Pain Management Drug ScreenO rdered By: Niecy Addison on 03-19-2021 Comment See Below [facility] Work Phone: Comment on above: The following [...] Panelon 06-11-2020 Cholesterol [Mass/Vol] 170 mg/dL <200 [place], [place] Cholesterol in HDL [Mass/Vol] 58 mg/dL 40 - 60 mg/dL [place] Cholesterol in LDL [Mass/Vol] 91 mg/dL <100 [place] Cholesterol.total/Ch olesterol in HDL [Mass ratio] 3 {ratio} [place] Comment on above: Ref Range: < 3 Low Risk for CHD 3-6 Mod Risk for CHD > 6 High Risk for CHD Triglyceride [Mass/Vol] 105 mg/dL <150 [place], [place] Test Performed by [facility], [address] [place] [address] [place] Pain Management Drug Screeno n 06-11-2020 Sodium [Moles/Vol] Negative [place] Sodium [Moles/Vol] See Below [place] Comment on above: The following were t ested for in the sample submitted at the listed thresholds: Amphetamines(1000ng/mL),Methamphetamine (1000 ng/mL),Cocaine and metabolites(300ng/mL),Codeine, Morphine,Hydrocodone,Hydromorphone(300 ng/mL each), Oxycodone(100 ng/mL), and THC metabolites(50 ng/mL). The sample was checked for dilution and substitution. NOTE: These results are for medical treatment only. Analysis performed using non-forensic procedures. Sodium [Moles/Vol] Alex Villafana [place], [place] Test Performed by [facility], [facility] [place] [address] [place] Basic Metabolic Panelon - Anion gap [Moles/Vol] 8 mmol/L [place] Calcium [Mass/Vol] 10.0 mg/dL 8.4 - 10. 4 mg/dL [place] Chloride [Moles/Vol] 98 mmol/L 98 - 10 7 mmol/L [place] CO2 [Moles/Vol] 32 mmol/L High 22 - 30 mmol/L [place] Creatinine [Mass/Vol] 1.24 mg/dL 0.52 - 1.25 mg/dL [place] EGFR IF NonAfrican Tajik 45.2 mL/min >60 [place] Comment on above: Source- MDRD equatio n with creatinine calibration to IDMS(NKDEP) eGFR not recommended for drug dose adjustment GFR/1.73 sq M predicted among blacks MDRD (S/P/Bld) [Vol rate/Area] 54.8 mL/min/{1.73_m2} >60 [place] Glucose [Mass/Vol] 111 mg/dL High 70 - 100 mg/dL [place] Interpretation and review of laboratory results Abnormal [place] Potassium [Moles/Vol] 4.9 mmol/L 3.5 - 5.1 mmol/L [place] Sodium [Moles/Vol] 138 mmol/L 135 - 145 mmol/L [place] Urea nitrogen [Mass/Vol] 24 mg/dL High 7 - 20 mg/dL [place] Test Performed by [facility], [facility] [place] [address] [place], [place] Vital Signs Date Time Vital Sign Value Performing Clinician Facility 10-30-2024 14:16-0500 Body mass index (BMI) [Ratio] 36.5 kg/m2 Gavin Otto MD Work Phone: [facility] 10-30-2024 14:16-0500 Body weight 93.44 kg Gavin Otto MD Work Phone: [facility] 09-19-2024 11:21-0500 Body height 162.6 cm Verlaine Azael DO Work Phone: [facility] [employer] 09-19-2024 11:21-0500 Body mass index (BMI) [Ratio] 35.29 kg/m2 Verlaine Azael DO Work Phone: [facility] [employer] 09-19-2024 11:21-0500 Body temperature 97.9 [degF] Verlaine Azael DO Work Phone: [facility] [employer] 09-19-2024 11:21-0500 Body weight 93.26 kg Verlaine Azael DO Work Phone: [facility] [employer] 09-19-2024 11:21-0500 Diastolic blood pressure 78 mm[Hg] Verlaine Azael DO Work Phone: [facility] [employer] 09-19-2024 11:21-0500 Heart rate 88 /min Verlaine Azael DO Work Phone: [facility] [employer] 09-19-2024 11:21-0500 Respiratory rate 18 /min Verlaine Azael DO Work Phone: [facility] [employer] 09-19-2024 11:21-0500 Systolic blood pressure 138 mm[Hg] Verlaine Azael DO Work Phone: [facility] [employer] 07-22-2024 15:21-0500 Body mass index (BMI) [Ratio] 36.06 kg/m2 Koki Casey PROSTHETICS ASSISTANT.FRETTED INSTRUMENT MAKER HAND Work Phone: [facility] 07-22-2024 15:21-0500 Body weight 91.17 kg Koki Casey PROSTHETICS ASSISTANT.FRETTED INSTRUMENT MAKER HAND Work Phone: [facility] 07-22-2024 15:21-0500 Diastolic blood pressure 73 mm[Hg] Koki Casey PROSTHETICS ASSISTANT.FRETTED INSTRUMENT MAKER HAND Work Phone: [facility] 07-22-2024 15:21-0500 Heart rate 92 /min Koki Casey PROSTHETICS ASSISTANT.FRETTED INSTRUMENT MAKER HAND Work Phone: [facility] 07-22-2024 15:21-0500 Respiratory rate 16 /min Koki Casey PROSTHETICS ASSISTANT.FRETTED INSTRUMENT MAKER HAND Work Phone: [facility] 07-22-2024 15:21-0500 Systolic blood pressure 119 mm[Hg] Koki Casey PROSTHETICS ASSISTANT.FRETTED INSTRUMENT MAKER HAND Work Phone: [facility] 07-17-2024 14:18-0500 Body mass index (BMI) [Ratio] 36.23 kg/m2 Fern Flowers MD Work Phone: [facility] 07-17-2024 14:18-0500 Body weight 91.6 kg Fern Flowers MD Work Phone: [facility] 07-17-2024 14:18-0500 Diastolic blood pressure 55 mm[Hg] Fern Flowers MD Work Phone: [facility] 07-17-2024 14:18-0500 Heart rate 87 /min Fern Flowers MD Work Phone: [facility] 07-17-2024 14:18-0500 Systolic blood pressure 144 mm[Hg] Fern Flowers MD Work Phone: [facility] 12-08-2023 10:06-0400 Body height 159 cm Fern Flowers MD Work Phone: [facility] 12-08-2023 10:06-0400 Body weight 82.1 kg Fern Flowers MD Work Phone: [facility] 12-08-2023 10:06-0400 Diastolic blood pressure 64 mm[Hg] Fern Flowers MD Work Phone: [facility] 12-08-2023 10:06-0400 Heart rate 85 /min Fern Flowers MD Work Phone: [facility] 12-08-2023 10:06-0400 Systolic blood pressure 146 mm[Hg] Fern Flowers MD Work Phone: [facility] 09-21-2023 09:23-0500 Body height 162.6 cm Verlaine Azael DO Work Phone: [facility] [employer] 09-21-2023 09:23-0500 Body mass index (BMI) [Ratio] 33.01 kg/m2 Verlaine Azael DO Work Phone: [facility] [employer] 09-21-2023 09:23-0500 Body temperature 96.6 [degF] Verlaine Azael DO Work Phone: [facility] [employer] 09-21-2023 09:23-0500 Body weight 87.27 kg Verlaine Azael DO Work Phone: [facility] 09-21-2023 09:23-0500 Diastolic blood pressure 81 mm[Hg] Verlaine Azael DO Work Phone: [facility] 09-21-2023 09:23-0500 Heart rate 85 /min Verlaine Azael DO Work Phone: [facility] 09-21-2023 09:23-0500 Respiratory rate 18 /min Verlaine Azael DO Work Phone: [facility] 09-21-2023 09:23-0500 Systolic blood pressure 127 mm[Hg] Verlaine Azael DO Work Phone: [facility] 06-28-2023 15:23-0400 Body mass index (BMI) [Ratio] 35.97 kg/m2 Gavin Otto MD Work Phone: [facility] 06-28-2023 15:23-0400 Body weight 92.08 kg Gavin Otto MD Work Phone: [facility] 06-28-2023 15:23-0400 Respiratory rate 18 /min Gavin Otto MD Work Phone: [facility] 04-12-2023 15:22-0400 Body weight 73.09 kg Titi Mallory Work Phone: [facility] Work Phone: 03-29-2023 15:28-0400 Body weight 81.65 kg Titi Steele [employer] Work Phone: [facility] Work Phone: 03-29-2023 15:28-0400 Diastolic blood pressure 78 mm[Hg] Titi Steele Newbill Work Phone: [facility] Work Phone: 03-29-2023 15:28-0400 Systolic blood pressure 140 mm[Hg] Titi Steele [employer] Work Phone: [facility]sg[facility]j [facility] Work Phone: 12-14-2022 08:25-0400 Body height 162.6 cm Lashell Wolf MD Work Phone: [facility] 12-14-2022 08:25-0400 Body temperature 97.2 [degF] Lashell Wolf MD Work Phone: [facility] 12-14-2022 08:25-0400 Diastolic blood pressure 92 mm[Hg] Lashell Wolf MD Work Phone: [facility] 12-14-2022 08:25-0400 Heart rate 87 /min Lashell Wolf MD Work Phone: [facility] 12-14-2022 08:25-0400 Systolic blood pressure 171 mm[Hg] Lashell Wolf MD Work Phone: [facility] 11-10-2022 08:13-0400 Body height 160 cm Pacc 4 Work Phone: [facility] 11-10-2022 08:13-0400 Body temperature 96.01 [degF] Pacc 4 Work Phone: [facility] 11-10-2022 08:13-0400 Body weight 83.83 kg Pacc 4 Work Phone: [facility] 11-10-2022 08:13-0400 Diastolic blood pressure 73 mm[Hg] Pacc 4 Work Phone: [facility] 11-10-2022 08:13-0400 Heart rate 84 /min Pac 4 Work Phone: [facility] 11-10-2022 08:13-0400 SaO2% (BldA) [Mass fraction] 100 % Pacc 4 Work Phone: [facility] 11-10-2022 08:13-0400 Systolic blood pressure 150 mm[Hg] Pac 4 Work Phone: [facility] 09-01-2022 10:11-0500 Diastolic blood pressure 75 mm[Hg] Verlaine Azael DO Work Phone: [employer] Comment on above: [facility] 09-01-2022 10:11-0500 Heart rate 87 /min Verlaine Azael DO Work Phone: [employer] 09-01-2022 10:11-0500 Systolic blood pressure 144 mm[Hg] Verlaine Azael DO Work Phone: [employer] Comment on above: [facility] 09-01-2022 10:09-0500 Body height 162.6 cm Verlaine Azael DO Work Phone: [employer] 09-01-2022 10:09-0500 Body mass index (BMI) [Ratio] 30.78 kg/m2 Verlaine Azael DO Work Phone: [employer] 09-01-2022 10:09-0500 Body temperature 96.91 [degF] Verlaine Azael DO Work Phone: [employer] 09-01-2022 10:09-0500 Body weight 81.38 kg Verlaine Azael DO Work Phone: [employer] 08-25-2022 17:16-0500 Body temperature 97.81 [degF] Rose Taylor PA-C Work Phone: [facility] 08-25-2022 17:16-0500 Diastolic blood pressure 76 mm[Hg] Rose Athy PA-C Work Phone: [facility] 08-25-2022 17:16-0500 Heart rate 90 /min Rose Athy PA-C Work Phone: [facility] 08-25-2022 17:16-0500 Respiratory rate 16 /min Rose Athy PA-C Work Phone: [facility] 08-25-2022 17:16-0500 SaO2% (BldA) [Mass fraction] 99 % Rose Athy PA-C Work Phone: [facility] 08-25-2022 17:16-0500 Systolic blood pressure 138 mm[Hg] Rose Athy PA-C Work Phone: [facility] Encounters Encounter Date Encounter Type Care Provider Facility Start: 04-21-2025 End: 04-22-2025 Telephone encounter Verlaine L Azael DO Work Phone: [facility] Comment on above: Med Refill Start: 04-07-2025 End: 04-07-2025 Office outpatient visit 25 minutes Gavin Otto MD Work Phone: [facility] Comment on above: Frequent UTI; Neurogenic bladder; Nocturia Start: 04-07-2025 End: 04-07-2025 ambulatory [facility] Ambulatory Start: 03-13-2025 End: 03-13-2025 Office outpatient visit 25 minutes Verlaine L Azael DO Work Phone: [facility] Comment on above: Chronic painful diab etic neuropathy (CMS/HCC) (HCC) (Primary Dx); Acute on chronic renal insufficiency; Screen for colon cancer Start: 03-13-2025 End: 03-13-2025 ambulatory VERLAINE AZAEL [facility] Start: 03-11-2025 End: 03-11-2025 ambulatory VERMSINE [facility] Start: 02-17-2025 End: 02-17-2025 ambulatory Genoveva Cottrell RN [facility] Clinical Communication Start: 02-17-2025 End: 02-17-2025 Patient encounter procedure Genoveva Cottrell RN [facility] al Communication Start: 01-12-2025 End: 01-13-2025 Refill Verlaine L Azael DO Work Phone: [facility] Comment on above: Psychophysiological insomnia Start: 12-28-2024 End: 12-30-2024 ambulatory Fauzia Osborne RN [facility] Clinical Communication Start: 12-28-2024 End: 12-30-2024 Patient encounter procedure Fauzia Osborne RN [facility] Communication Comment on above: Psychophysiological insomnia Start: 12-28-2024 End: 12-30-2024 Refill Marinamono Josed DO Work Phone: [facility] Comment on above: Chronic painful diab etic neuropathy (CMS/HCC) (HCC) Start: 12-17-2024 End: 12-17-2024 Refill Fern Flowers MD Work Phone: Endocrinology Comment on above: Refill Request Start: 12-10-2024 End: 12-10-2024 ambulatory VERLAINE AZAEL [facility] Start: 12-10-2024 End: 12-10-2024 Office outpatient visit 25 minutes Verlaine L Azael DO Work Phone: [facility] Comment on above: Chronic painful diab etic neuropathy (CMS/HCC) (HCC) (Primary Dx); Psychophysiological insomnia; Microalbuminuria; FCI current use 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; Screening cholesterol level; Encounter for screening mammogram for malignant neoplasm of breast; Colon cancer screening Start: 10-30-2024 End: 10-30-2024 Office outpatient visit 25 minutes Gavin Otto MD Work Phone: [facility] Comment on above: Nocturia; Urinary retention; Neurogenic bladder; Frequent UTI Start: 10-30-2024 End: 10-30-2024 ambulatory GAVIN OTTO [facility] Ambulatory Start: 09-29-2024 End: 09-30-2024 Refill Verlaine L Azael DO Work Phone: [facility] Comment on above: Chronic painful diab etic neuropathy (CMS/HCC) (HCC) Start: 09-25-2024 End: 09-25-2024 ambulatory SUSAN RENNER-BORA [facility] Start: 09-19-2024 End: 09-19-2024 Office outpatient visit 25 minutes Verlaine L Azael DO Work Phone: [facility] Comment on above: Chronic painful diab etic neuropathy (CMS/HCC) (HCC) (Primary Dx); Essential hypertension; Psychophysiological insomnia; FCI current use 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; Need for vaccination; Colon cancer screening Start: 09-19-2024 End: 09-19-2024 ambulatory VERGUMAROINE AZAEL [facility] Start: 08-14-2024 End: 08-14-2024 Orders Only Umair Daley MD Work Phone: 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) (Primary Dx) Start: 07-17-2024 End: 07-17-2024 ambulatory FERN FLOWERS Facility:[facility] Start: 06-14-2024 End: 06-14-2024 Telephone encounter Fern Flowers MD Work Phone: Endocrinology Comment on above: Forms (DWO for CGM - Sensors [employer] Transmitter [[employer]]) Start: 06-13-2024 End: 06-13-2024 Office outpatient visit 25 minutes Verlaine L Azael DO Work Phone: [facility] Comment on above: Psychophysiological insomnia (Primary Dx); Chronic painful diabetic neuropathy (CMS/HCC) (HCC); Recurrent major depressive disorder, in remission (HCC); Coronary artery disease involving [place] coronary artery of [place] heart without angina pectoris Start: 06-13-2024 End: 06-13-[address] [facility] Start: 06-11-2024 End: 06-11-[address] [facility] Start: 05-22-2024 End: 05-23-2024 Refill Kindra Regula DO Work Phone: [facility] Comment on above: Chronic [...] [[employer]]) Start: 04-24-2024 End: 04-24-2024 melissa HDEZ Facility:[facility] Start: 04-24-2024 End: 04-24-2024 Patient encounter procedure Loc Hdez MD Work Phone: Pain Management Comment on above: Diabetic peripheral neuropathy (HCC) (Primary Dx) Start: 04-23-2024 End: 04-23-2024 Refill Verlaine L Azael DO Work Phone: [facility] Comment on above: Chronic painful diab etic neuropathy (CMS/HCC) (HCC) Start: 04-16-2024 End: 04-16-2024 E-mail encounter from caregiver [facility] Start: 04-16-2024 End: 04-16-2024 Patient encounter procedure [facility] Pain Managem ent Comment on above: Instructions for you r upcoming appointment Start: 04-05-2024 Telephone encounter Jael mccarty RN Work Phone: Diabetic Education [facility] Comment on above: Insulin pump start f /u Start: 04-02-2024 End: 04-02-2024 ambulatory VERLAINE LIMBO AZAEL Facility:[facility] Start: 04-02-2024 End: 04-02-2024 Nursing evaluation of patient and report Jael Cifuentes RN Work Phone: [facility] Comment on above: 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) (Primary Dx) Start: 03-27-2024 End: 03-27-2024 Office outpatient visit 25 minutes Verlaine L Azael DO Work Phone: [facility] Comment on above: Psychophysiological insomnia (Primary Dx) Start: 03-22-2024 Telephone encounter Fern Flowers MD Work Phone: Endocrinology Comment on above: insulin pump start t raining Start: 03-21-2024 End: 03-21-2024 Office outpatient visit 25 minutes Verlaine L Azael DO Work Phone: [facility] Comment on above: Chronic painful diab etic neuropathy (CMS/HCC) (HCC) (Primary Dx); Pain in both hands; Encounter for screening mammogram for malignant neoplasm of breast; Colon cancer screening Start: 03-12-2024 Telephone encounter Fern Flowers MD Work Phone: Endocrinology Start: 02-16-2024 End: 02-16-2024 ambulatory TITI [facility] Start: 01-07-2024 Refill Verlaine L Osbaldo ser DO Work Phone: [facility] Comment on above: Chronic painful diab etic neuropathy (CMS/HCC) (HCC) Start: 12-21-2023 End: 12-21-2023 Office outpatient visit 25 minutes Verlaine L Azael DO Work Phone: [facility] Comment on above: Chronic painful diab etic neuropathy (CMS/HCC) (HCC) (Primary Dx); Menopausal syndrome on hormone replacement therapy; Encounter for monitoring opioid maintenance therapy; Encounter for screening mammogram for malignant neoplasm of breast; Colon cancer screening Start: 12-08-2023 End: 12-08-2023 ambulatory NIECY ADDISON Facility:[facility] Start: 12-08-2023 End: 12-08-2023 Patient encounter procedure Fern Flowers MD Work Phone: Endocrinology Comment on above: 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 ) Start: 09-21-2023 End: 09-21-2023 Office outpatient visit 25 minutes Verlaine L Azael DO Work Phone: [facility] Comment on above: Chronic painful diab etic neuropathy (CMS/HCC) (HCC) (Primary Dx); Menopausal syndrome on hormone replacement therapy; Pain in both hands; Need for vaccination Start: 09-03-2023 Letter encounter Deep vela Work Phone: [facility] Start: 07-18-2023 Telephone encounter Vervenice Joshi Azael DO Work Phone: [facility] Comment on above: Prior Authorization (Leonel SINGH approved) Start: 07-13-2023 Telephone encounter Verlaine L Azael DO Work Phone: [facility] Comment on above: Medication request Start: 06-28-2023 End: 06-28-2023 Office outpatient visit 15 minutes Gavin Otto MD Work Phone: [facility] Comment on above: Urinary retention (P rimary Dx); Neurogenic bladder; Frequent UTI; Nocturia Start: 06-22-2023 End: 06-22-2023 Office outpatient visit 25 minutes Verlaine L Azael DO Work Phone: [facility] Comment on above: Chronic painful diab etic neuropathy (CMS/HCC) (HCC) (Primary Dx); Recurrent major depressive disorder, in remission (HCC); Coronary artery disease involving [place] coronary artery of [place] heart without angina pectoris; Menopausal syndrome on hormone replacement therapy; Colon cancer screening; Encounter for screening mammogram for malignant neoplasm of breast Start: 04-13-2023 Chart Update Titi Mallory Work Phone: [facility] DO Work Phone: Start: 04-12-[address] Otto II Facility:[id number] Start: 04-11-[address] Otto II Facility:[id number] Start: 04-06-2023 End: 04-06-2023 Emergency department patient visit [facility] Facility:[facility] Start: 04-04-2023 Telephone encounter Verlaine L Azael DO Work Phone: [facility] Comment on above: Med Refill (gabapent in (Neurontin) 400 MG capsule//) Start: 03-31-2023 Telephone encounter Verlaine L Azael DO Work Phone: [facility] Comment on above: Med Refill Start: 03-30-2023 Telephone encounter Verlaine L Azael DO Work Phone: [facility] Comment on above: Med Refill Start: 03-29-2023 Office outpatient ne w 30 minutes Titi Mallory Work Phone: [facility] Work Phone: Start: 03-29-[address]za [address] Otto II Facility:[id number] Start: 03-27-2023 ambulatory No Primary Car e Physician Facility:[facility] Start: 03-10-2023 End: 03-10-2023 Office outpatient visit 25 minutes Verlaine L Azael DO Work Phone: [facility] Comment on above: Chronic painful diab etic neuropathy (CMS/HCC) (HCC) (Primary Dx); Screening for lipid disorders; Need for hepatitis C screening test; Screening for HIV (human immunodeficiency virus); Thyroid disorder screen Start: 02-10-2023 Telephone encounter Tikaluisa Addison DO Work Phone: [facility] Comment on above: Appointment Start: 12-14-2022 End: 12-14-2022 Office outpatient new 60 minutes Lashell Wolf MD Work Phone: [facility] Comment on above: Chronic painful diab etic neuropathy (CMS/HCC) (HCC) (Primary Dx) Start: 12-12-2022 Telephone encounter Niecy Addison DO Work Phone: [facility] Comment on above: Medication Problem ( PA needed ) Start: 12-08-2022 ambulatory No Primary Car e Physician Facility:[facility] Start: 11-15-2022 Telephone encounter Gavin montilla PA-C Work Phone: [facility] Comment on above: insurance denial Patient Update Start: 11-14-2022 Telephone encounter Alban ortiz PA-C Work Phone: [facility] Comment on above: Patient Update Start: 11-10-2022 [...] procedure Sharan Mendoza MD Work Phone: [facility] Comment on above: Radiculopathy of lum bar region (Primary Dx); Diabetic autonomic neuropathy associated with type 2 diabetes mellitus (HCC) Start: 11-10-2022 End: 11-10-2022 Admission to establishment Pacc Main 4 Work Phone: [facility] Start: 11-10-2022 End: 11-10-2022 Preprocedural examination done Pacc Main 4 Work Phone: Pre Anesthesia Start: 11-08-2022 Telephone encounter Verlaine L Azael DO Work Phone: [facility] Start: 10-31-2022 Telephone encounter Lida Arnett PA-C Work Phone: Pre Anesthesia Comment on above: PACC (Missed appoint ment ) Called Back Start: 09-30-2022 Telephone encounter Sharan Mendoza MD Work Phone: [facility] Comment on above: Patient Question Start: 09-22-2022 End: 09-22-2022 Office outpatient visit 15 minutes Verlaine L Azael DO Work Phone: [facility] Comment on above: Chronic painful diab etic neuropathy (CMS/HCC) (HCC) Start: 09-22-2022 End: 09-22-2022 ambulatory KATELYNN LEWIS Facility:[facility] Start: 09-22-2022 End: 09-22-2022 Patient encounter procedure Katelynn Iveth Lewis PhD Work Phone: [facility] Comment on above: Pain disorder with r elated psychological factors (Primary Dx); Type 1 diabetes mellitus with peripheral autonomic neuropathy (HCC) Start: 09-19-2022 Telephone encounter Sharan Mendoza MD Work Phone: [facility] Comment on above: WOC Appointments Start: 09-15-2022 End: 09-15-2022 ambulatory No Primary Care Physician Facility:[facility] Start: 09-02-2022 Letter encounter Deep vela Work Phone: [facility] Start: 09-01-2022 End: 09-01-2022 Office outpatient visit 25 minutes Verlaine L Azael DO Work Phone: [facility] Comment on above: Chronic painful diab etic neuropathy (CMS/HCC) (HCC) (Primary Dx) Start: 08-25-2022 End: 08-25-2022 Patient encounter procedure Rose Taylor PA-C [facility] Comment on above: Acute non-recurrent maxillary sinusitis (Primary Dx); Conjunctivitis, viral Start: 07-08-2022 End: 07-08-2022 Orders Only Vervenice Robleroser DO Work Phone: [facility] Comment on above: Type 1 diabetes claudia itus with diabetic autonomic neuropathy (CMS/HCC) (HCC) (Primary Dx); Chronic painful diabetic neuropathy (CMS/HCC) (HCC); Colon cancer screening; Encounter for screening mammogram for malignant neoplasm of breast; Screen for colon cancer Start: 07-07-2022 ambulatory Sharan helms MD Work Phone: [facility] Comment on above: Tests Start: 07-01-2022 End: [...] by physician Niecy Addison DO Work Phone: [facility] USE ONLY Start: 06-02-2022 Letter encounter Deep vela Work Phone: [facility] Start: 05-25-2022 ambulatory GAVIN CRUZ Facility: [facility] Start: 05-25-2022 End: 05-25-2022 Subsequent hospital visit by physician [facility] Comment [...] by physician Niecy Addison DO Work Phone: [facility] Laboratory Comment on above: Chronic painful diab etic neuropathy (HCC) Start: 03-10-2022 Letter encounter Deep vela Work Phone: [facility] Start: 12-23-2021 ambulatory [facility]zael [facility] Start: 12-23-2021 End: 12-23-2021 Subsequent hospital visit by physician Niecy Addison DO Work Phone: [facility] USE ONLY Start: 10-14-2021 End: 10-14-2021 Subsequent hospital visit by physician Claudio Faith MD Work Phone: [facility] Start: 09-24-2021 ambulatory Verlaine Azael [facility] Start: 08-19-2021 ambulatory Verlaine Azael [facility] Start: 08-19-2021 Encounter for gyneco logical examination (general) (routine) without abnormal [facility] Start: 08-02-2021 ambulatory Verlaine Azael [facility] Start: 08-02-2021 End: 08-02-2021 Subsequent hospital visit by physician Ashely Gonzalez DO Work Phone: [facility] USE ONLY Start: 07-29-2021 ambulatory Verlaine Azael [facility] Start: 04-30-2021 End: 04-30-2021 Subsequent hospital visit by physician Niecy Addison DO Work Phone: [facility] USE ONLY Start: 04-14-2021 [...] 03-04-2021 Letter encounter Deep Tsang Work Phone: [employer] Start: 01-28-2021 End: 01-28-2021 Subsequent hospital visit [...] 05-28-2020 End: 05-28-2020 Letter encounter Deep Tsang [employer] Start: 12-26-2019 End: 12-26-2019 Subsequent hospital visit [...] Depression, major, recurrent, mild (HCC) Susan Cole [facility] Comment on above: Depression, major, r ecurrent, [...] recurrent major depressive disorder (HCC) Sheila Vidalshay [facility] Work Phone: Comment on above: Moderate episode of recurrent major depressive disorder (HCC) Start: 10-18-2023 End: 10-18-2023 Psychiatric diagnostic evaluation Moderate episode of recurrent major depressive disorder (HCC) Sheila Johnson Jeremías [facility] Work Phone: Comment on above: Moderate episode [...] for Adults (1 - 1-dose 75+ series) [facility] Start: 2031 Pneumococcal 0-64 years Vaccine (2 of 2 - PPSV23) Pneumococcal 0-64 years Vaccine (2 of 2 - PPSV23) [facility] Start: 2031 Pneumococcal 0-64 years Vaccine (2 of 2) Pneumococcal 0-64 years Vaccine (2 of 2) [facility] Work Phone: Start: 09-21-2028 Cyanocobalamin vitamin b-12 Vitamin B-12 [facility] Start: 07-13-2028 DTaP/Tdap/Td vaccine (2 - Td) DTaP/Tdap/Td vaccine (2 - Td) [place] Start: 07-13-2028 DTaP/Tdap/Td vaccine (4 - Td or Tdap) DTaP/Tdap/Td vaccine (4 - Td or Tdap) [facility] Start: 07-13-2028 DTaP/Tdap/Td vaccine (4 - Td) DTaP/Tdap/Td vaccine (4 - Td) [facility] Work Phone: Start: 07-13-2028 DTaP/Tdap/Td Vaccines (4 - Td or Tdap) DTaP/Tdap/Td Vaccines (4 - Td or Tdap) [facility] Start: 07-13-2028 Urine microalbumin profile DTaP,Tdap,Td Vaccine (4 - Td or Tdap) [facility] Start: 08-19-2026 PAP TESTING PAP TESTING [facility] Start: 08-19-2026 Screening for malignant neoplasm of cervix [facility] Start: 2026 RSV Immunization aged 60 or older (1 - 1-dose 60+ series) RSV Immunization aged 60 or older (1 - 1-dose 60+ series) [facility] Start: 03-11-2026 Diabetes: Estimated Glomerular Filtration Rate for [facility] Diabetes: Estimated Glomerular Filtration Rate for [facility] Start: 03-11-2026 Diabetes: Urine Albumin-Creatinine Ratio for [facility] Diabetes: Urine Albumin-Creatinine Ratio for [facility] Start: 03-11-2026 Lipid panel Lipid Panel [facility] Start: 09-19-2025 Diabetes: Urine Albumin-Creatinine Ratio for [facility] Diabetes: Urine Albumin-Creatinine Ratio for [facility] Start: 07-22-2025 BP Controlled (<130/80) BP Controlled (<130/80) [facility] Start: 07-17-2025 Hemoglobin A1c measurement Diabetes: Hemoglobin A1C [facility] Start: 06-05-2025 End: 06-05-2025 Telemedicine consultation with patient 06/05/2025 9:10 AM EDT Telemedicine [facility] [address] [place] [address] Niecy Addison, DO [address] [place] [address] [facility] Start: 06-04-2025 End: 06-04-2025 Telemedicine consultation with patient 06/04/2025 9:10 AM EDT Telemedicine [facility] [address] [place] [address] Niecy Addison DO [address] [place] [id number] [facility] Start: 05-08-2025 End: 04-07-2026 US Kidney - bilateral and Urinary bladder US renal complete Imaging Routine Frequent UTI Expected: 05/08/2025, Expires: 04/07/2026 [facility] Work Phone: Comment on above: Expected: 05/08/2025, Expires: Start: 04-28-2025 Influenza vaccination Influenza Vaccine (#1) [facility] Start: 04-12-2025 End: 04-12-2025 PAIN MANAGEMENT PANEL PAIN MANAGEMENT PANEL Lab Routine Chronic painful diabetic neuropathy (CMS/HCC) (HCC) [facility] current use 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 Expected: 04/12/2025 (Approximate), Expires: 04/12/2025 [facility] Work Phone: Comment on above: Expected: 04/12/2025 (Approximate), Expi res: 04/12/2025 Start: 04-07-2025 End: 04-07-2026 Basic metabolic 2000 panel - Serum or Plasma Basic Metabolic Panel Lab Routine Nocturia Expected: 04/07/2025 (Approximate), Expires: 04/07/2026 [facility] Service Area Work Phone: Comment on above: Expected: 04/07/2025 (Approximate), Expi res: 04/07/2026 Start: 04-07-2025 End: 04-07-2026 Urinalysis complete W Reflex Culture panel - Urine Urinalysis with Reflex Culture and Microscopic Lab Routine Frequent UTI Nocturia Expected: 04/07/2025 (Approximate), Expires: 04/07/2026 [facility] Work Phone: Comment on above: Expected: 04/07/2025 (Approximate), Expi res: 04/07/2026 Start: 03-28-2025 Glaucoma screening Diabetes: Retinopathy Screening [facility] Start: 03-18-2025 Depression Monitoring Depression Monitoring [facility] Start: 03-13-2025 End: 03-13-2025 Telemedicine consultation with patient 03/13/2025 9:10 AM EDT Telemedicine [facility] [address] [place] [address] Niecy Addison DO [address] [place] [address] [facility] Start: 01-14-2025 Hemoglobin A1c measurement HbA1C [facility] Start: 12-10-2024 End: 12-10-2025 Comprehensive metabolic 1998 panel - Serum or Plasma Comprehensive metabolic panel Lab Routine Chronic painful diabetic neuropathy (CMS/HCC) (HCC) Psychophysiological insomnia Expected: 12/10/2024 (Approximate), Expires: 12/10/2025 [facility] Comment on above: Expected: 12/10/2024 (Approximate), Expi res: 12/10/2025 Start: 12-10-2024 End: 12-10-2025 Fentanyl, urine Fentanyl, urine Lab Routine Chronic painful diabetic neuropathy (CMS/HCC) (HCC) 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 Expected: 12/10/2024 (Approximate), Expires: 12/10/2025 [facility] Comment on above: Expected: 12/10/2024 (Approximate), Expi res: 12/10/2025 Start: 12-10-2024 End: 12-10-2025 Lipid 1996 panel - Serum or Plasma Lipid panel Lab Routine Screening cholesterol level Expected: 12/10/2024 (Approximate), Expires: 12/10/2025 [facility] Comment on above: Expected: 12/10/2024 (Approximate), Expi res: 12/10/2025 Start: 12-10-2024 End: 12-10-2025 Microalbumin/Creatinin e panel in random Urine Microalbumin / creatinine urine ratio Lab Routine Microalbuminuria Expected: 12/10/2024 (Approximate), Expires: 12/10/2025 [facility] Work Phone: Comment on above: Expected: 12/10/2024 (Approximate), Expi res: 12/10/2025 Start: 12-10-2024 End: 02-09-2025 PAIN MANAGEMENT PANEL PAIN MANAGEMENT PANEL Lab Routine Chronic painful diabetic neuropathy (CMS/HCC) (HCC) [facility] current use 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 Expected: 12/10/2024 (Approximate), Expires: 02/09/2025 [facility] Comment on above: Expected: 12/10/2024 (Approximate), Expi res: 02/09/2025 Start: 12-10-2024 End: 12-10-2024 Telemedicine consultation with patient 12/10/2024 1:00 PM EDT Telemedicine [facility] [address] [place] [address] Niecy Addison DO [address] [place] [address] [facility] Start: 12-07-2024 Diabetes: Urine Albumin-Creatinine Ratio for Kidney Health Diabetes: Urine Albumin-Creatinine Ratio for Kidney Health [facility] Comment on above: Postponed from 09/01/2023 (Other Medical Reasons) Start: 12-07-2024 Diabetic foot examination Diabetes: Foot Exam [facility] Comment on above: Postponed from 1976 (Other Medical Reasons) Start: 12-07-2024 Hepatitis B screening Urine Albumin:Creatinine Ratio [facility] Start: 12-07-2024 Urine screening for protein Diabetes: Urine Protein Screening [facility] Start: 10-25-2024 End: 10-25-2024 Patient encounter procedure 10/25/2024 2:00 PM EST Office Visit Neurology [address] [place] [address] Koki Peña APRN.[employer]ED IN[employer]UMENT [employer] [address] [place] [address] follow up after psg Neurology Comment on above: follow up after psg Start: 10-17-2024 Hemoglobin A1c measurement Diabetes: Hemoglobin A1C [facility] Start: 10-04-2024 End: 10-04-2024 Patient encounter procedure 10/04/2024 9:20 PM EST Office Visit Neurology [address] [place] [address] Snoring [R06.83]; Chronic, continuous use of opioids [F11.90]; Non-restorative sleep [G47.8]; Excessive daytime sleepiness [G47.19]; RLS (restless legs syndrome) [G25.81] Neurology Comment on above: Snoring [R06.83]; Chronic, continuous us e of opioids [F11.90]; Non-restorative sleep [G47.8]; Excessive daytime sleepiness [G47.19]; RLS (restless legs syndrome) [G25.81] Start: 09-26-2024 Depression Monitoring Depression Monitoring [facility] [employer] Start: 09-25-2024 End: 09-25-2024 Telemedicine consultation with patient 09/25/2024 11:00 AM EST Telemedicine [facility] [employer] [facility] [address] [place] [address] Susan Cole LPCC [facility] [employer] [facility] Start: 09-21-2024 Creatinine measurement Serum Creatinine [facility] Start: 09-21-2024 Diabetes: Estimated Glomerular Filtration Rate for Kidney Health Diabetes: Estimated Glomerular Filtration Rate for Kidney Health [facility] Start: 09-21-2024 Hemoglobin A1c measurement Diabetes: Hemoglobin A1C [facility] Start: 09-21-2024 Hepatitis B surface antibody level LDL Cholesterol [facility] Start: 09-21-2024 Lipid panel Lipid Panel [facility] Start: 09-21-2024 Thyroid stimulating hormone measurement TSH Level [facility] Start: 09-19-2024 End: 09-19-2024 Patient encounter procedure 09/19/2024 11:10 AM EST Office Visit [facility] [address] [place] [address] Niecy Addison DO [address] [place] [address] [facility] Start: 08-19-2024 Screening for malignant neoplasm of cervix [facility] Start: 08-14-2024 End: 08-14-2025 DBT Breast - bilateral screening Bilateral screening mammogram with tomosynthesis Imaging Routine Screening mammogram for breast cancer Expected: 08/14/2024, Expires: 08/14/2025 [facility] Work Phone: Comment on above: Expected: 08/14/2024, Expires: Start: 07-22-2024 End: 07-22-2024 Patient encounter procedure 07/22/2024 3:30 PM EST Office Visit Neurology [address] [place] [address] Koki Peña APRN.[employer]ED INSTRUMENT MAK[employer] [address] [place] [address] Evaluation for Sleep Apnea / sleeping disorder (WebAppointment Request #[id number]) Neurology Comment on above: Evaluation for Sleep Apnea / sleeping di sorder (WebAppointment Request #[id number]) Start: 07-17-2024 End: 07-17-2024 Patient encounter procedure 07/17/2024 2:30 PM EST Office Visit Endocrinology [address] [place] [address] Fern Jackson MD [address] [place], [place] [id number] 6m follow up Endocrinology Comment on above: 6m follow up Start: 07-17-2024 End: 08-16-2025 US Thyroid gland US THYROID/PARATHYROID Radiology Routine Type 1 diabetes mellitus with diabetic polyneuropathy (HCC) Expected: 07/17/2024, Expires: 08/16/2025 [facility] Comment on above: Expected: 07/17/2024, Expires: Start: 06-13-2024 End: 06-13-2024 Telemedicine consultation with patient [facility] Start: 06-12-2024 End: 06-12-2024 Patient encounter procedure 06/12/2024 4:30 PM EDT Office Visit Endocrinology [address] [id number] Fern Jackson MD [address] [place] [address] 6m follow up Endocrinology Comment on above: 6m follow up Start: 05-29-2024 End: 05-29-2024 Patient encounter procedure 05/29/2024 4:30 PM EDT Office Visit Endocrinology [address] [place] [address] Fern Jackson MD [address] [place] [address] 6m follow up Endocrinology Comment on above: 6m follow up Start: 04-28-2024 Covid-19 Vaccine ( season) Covid-19 Vaccine ( season) [facility] Start: 04-28-2024 Influenza vaccination Influenza Vaccine (#[facility]) [facility] Start: 04-24-2024 End: 04-24-2024 Patient encounter procedure 04/24/2024 2:30 PM EDT Office Visit Pain Management [address] [id number] Loc Hdez MD [address] [facility] [place] [address] Severe neuropathy/ diabetes Pain Management Comment on above: Severe neuropathy/ diabetes Start: 04-24-2024 End: 04-24-2024 PAIN MANAGEMENT PANEL PAIN MANAGEMENT PANEL Lab Routine Chronic painful diabetic neuropathy (CMS/HCC) (HCC) Encounter for monitoring opioid maintenance therapy Expected: 04/24/2024 (Approximate), Expires: 04/24/2024 [facility] Work Phone: Comment on above: Expected: 04/24/2024 (Approximate), Expi res: 04/24/2024 Start: 04-02-2024 End: 04-02-2024 Nursing evaluation of patient and report 04/02/2024 2:00 PM EDT Nurse Visit Diabetic Education [facility] [address] [phone] Jael Cifuentes, RN [address] [phone] Insulin pump start Diabetic Education [facility] Comment on above: Insulin pump start Start: 03-21-2024 Depression Monitoring Depression Monitoring [facility] Start: 03-21-2024 Depresssion Monitoring Depresssion Monitoring [facility] Start: 03-21-2024 Hemoglobin A1c measurement HbA1C [facility] Start: 03-21-2024 End: 03-21-2024 Telemedicine consultation with patient 03/21/2024 10:50 AM EDT Telemedicine [facility] [address] [place] [address] Niecy Addison, DO [address] [place] [address] [facility] Start: 03-08-2024 End: 03-08-2024 Patient encounter procedure 03/08/2024 7:40 AM EDT Appointment [facility] [address] [place] [address] Niecy Addison, DO [address] [place] [address] [facility] Start: 01-05-2024 End: 01-05-2024 Patient encounter procedure 01/05/2024 2:40 PM EDT Appointment [facility] [address] [place] [address] Niecy Addison, DO [address] [place] [phone] [facility] Start: 12-27-2023 End: 12-27-2023 Patient encounter procedure 12/27/2023 3:15 PM EDT Office Visit [facility] [address] [facility] [address] [place] [address] Gavin Otto MD [address] [place] [address] [facility] Start: 12-22-2023 Depresssion Monitoring Depresssion Monitoring [facility] Start: 12-22-2023 End: 02-20-2024 PAIN MANAGEMENT PANEL PAIN MANAGEMENT PANEL Lab Routine Chronic painful diabetic neuropathy (CMS/HCC) (HCC) Encounter for monitoring opioid maintenance therapy Expected: 12/22/2023 (Approximate), Expires: 02/20/2024 [facility] [employer] [facility] Work Phone: Comment on above: Expected: 12/22/2023 (Approximate), Expi res: 02/20/2024 Start: 12-21-2023 End: 02-19-2025 DBT Breast - bilateral screening Bilateral screening mammogram with tomosynthesis Imaging Routine Encounter for screening mammogram for malignant neoplasm of breast Expected: 12/21/2023 (Approximate), Expires: 02/19/2025 [facility] Comment on above: Expected: 12/21/2023 (Approximate), Expi res: 02/19/2025 Start: 12-21-2023 End: 12-20-2024 Fentanyl & Metab, Ur Qnt Fentanyl & Metab, Ur Qnt Lab Routine Chronic painful diabetic neuropathy (CMS/HCC) (HCC) Encounter for monitoring opioid maintenance therapy Expected: 12/21/2023 (Approximate), Expires: 12/20/2024 [facility] Comment on above: Expected: 12/21/2023 (Approximate), Expi res: 12/20/2024 Start: 12-21-2023 End: 12-20-2024 Hemoglobin.gastrointes tinal.lower [Presence] in Stool by Immunoassay Fecal Immunochemical Test Microbiology Routine Colon cancer screening Expected: 12/21/2023, Expires: 12/20/2024 [facility] Comment on above: Expected: 12/21/2023, Expires: Start: 12-21-2023 End: 12-21-2023 Telemedicine consultation with patient 12/21/2023 11:10 AM EDT Telemedicine [facility] [address] [place] [address] Niecy Addison DO [address] [place] [address] [facility] Start: 11-11-2023 Complete blood count Hemoglobin/Hematocrit [facility] Start: 11-11-2023 HEMOGLOBIN/HEMATOCRIT HEMOGLOBIN/HEMATOCRIT [facility] Start: 11-11-2023 SERUM CREATININE SERUM CREATININE [facility] Start: 10-25-2023 End: 10-25-2023 Telemedicine consultation with patient 10/25/2023 2:00 PM EST Telemedicine [facility] [place] [phone] Sheila Veronica, [facility] [address] [place] [address] [facility] Start: 10-18-2023 End: 10-18-2023 Telemedicine consultation with patient 10/18/2023 3:00 PM EST Telemedicine [facility] [address] [place] [address] Sheila Veronica, [facility] [address] [place] [address] [facility] Start: 09-21-2023 End: 09-21-2024 Fentanyl & Metab, Ur Qnt [facility] Work Phone: Comment on above: Expected: 09/21/2023 (Approximate), Expi res: 09/21/2024 Start: 09-21-2023 End: 09-21-2023 Patient encounter procedure 09/21/2023 9:10 AM EST Office Visit [facility] [address] [place] [address] Niecy Addison DO [address] [place] [address] [facility] Start: 09-10-2023 Depresssion Monitoring Depresssion Monitoring [facility] Start: 09-01-2023 Diabetes: Urine Albumin-Creatinine Ratio for Kidney Health Diabetes: Urine Albumin-Creatinine Ratio for Kidney Health [facility] Start: 09-01-2023 Hepatitis B screening URINE ALBUMIN:CREATININE RATIO [facility] Start: 09-01-2023 Urine screening for protein Diabetes: Urine Protein Screening [facility] Start: 08-19-2023 COVID-19 Vaccine (4 - Moderna series) COVID-19 Vaccine (4 - Moderna series) [facility] Start: 08-19-2023 Hepatitis B Vaccines (3 of 3 - 19+ 3-dose series) Hepatitis B Vaccines (3 of 3 - 19+ 3-dose series) [facility] Start: 06-28-2023 FUV, Provider: Gavin Otto II, Status: Pen, Time: 3:15 PM FUV, Provider: Gavin Otto II, Status: Pen, Time: 3:15 PM [id number] Work Phone: Start: 06-28-2023 End: 07-05-2023 Bacteria identified in Urine by Culture Urine Culture Microbiology Routine Frequent UTI Expected: 06/28/2023 (Approximate), Expires: 07/05/2023 [facility] Service Area Work Phone: Comment on above: Expected: 06/28/2023 (Approximate), Expi res: 07/05/2023 Start: 06-22-2023 End: 06-22-2023 Telemedicine consultation with patient 06/22/2023 8:30 AM EDT Telemedicine [facility] [address] [place] [address] Niecy Addison DO [address] [place] [address] [facility] Start: 06-15-2023 Depresssion Monitoring Depresssion Monitoring [facility] Start: 05-13-2023 Hemoglobin A1c/Hemoglobin.total in Blood HBA1C [facility] Start: 04-28-2023 COVID-19 Vaccine ( season) COVID-19 Vaccine () [facility] Start: 04-28-2023 Influenza vaccination Influenza Vaccine (#1) [facility] Start: 04-12-2023 CYSTOSCOPY, Provider: [facility]OLOG[facility] PROCEDURE RM,[id number], Status: Pen, Time: 3:00 PM CYSTOSCOPY, Provider: HOAHAOISM UROLOGY PROCEDURE RM,[id number], Status: Pen, Time: 3:00 PM [id number] Work Phone: Start: 03-17-2023 Depression Monitoring Depression Monitoring [facility] Start: 03-11-2023 End: 05-11-2023 PAIN MANAGEMENT PANEL PAIN MANAGEMENT PANEL Lab Routine Chronic painful diabetic neuropathy (CMS/HCC) (HCC) Expected: 03/11/2023 (Approximate), Expires: 05/11/2023 [facility] Work Phone: Comment on above: Expected: 03/11/2023 (Approximate), Expi res: 05/11/2023 Start: 03-10-2023 End: 03-10-2024 Fentanyl & Metab, Ur Qnt Fentanyl & Metab, Ur Qnt Lab Routine Chronic painful diabetic neuropathy (CMS/HCC) (HCC) Expected: 03/10/2023 (Approximate), Expires: 03/10/2024 [facility] Comment on above: Expected: 03/10/2023 (Approximate), Expi res: 03/10/2024 Start: 03-09-2023 End: 03-09-2023 Telemedicine consultation with patient 03/09/2023 11:10 AM EDT Telemedicine [facility] [address] [place] [address] Niecy Addison, DO [address] [place] [address] [facility] Start: 02-10-2023 Hemoglobin A1c measurement Diabetes: Hemoglobin A1C [facility] Start: 12-17-2022 Creatinine measurement Creatinine [facility] Start: 12-17-2022 Potassium [Moles/volume] in Serum or Plasma Potassium [facility] Start: 12-17-2022 SERUM CREATININE SERUM CREATININE [facility] Start: 12-14-2022 End: 12-14-2022 Patient encounter procedure 12/14/2022 Office Visit Family Medicine Lashell Wolf MD [address] [place] [address], [address] [place] [address] [facility] Start: 11-14-2022 End: 01-14-2023 CBC panel - Blood by Automated count CBC Lab Routine Radiculopathy of lumbar region Expected: 11/14/2022, Expires: 01/14/2023 [facility] Work Phone: Comment on above: Expected: 11/14/2022, Expires: 3 Start: 11-10-2022 End: 01-10-2023 Hemoglobin A1c in Blood [facility] Work Phone: Comment on above: Expected: 11/10/2022, Expires: 3 Start: 10-20-2022 End: 10-20-2022 Telemedicine consultation with patient 10/20/2022 Telemedicine Family Medicine Niecy Addison DO [address] [place] [address] [facility] Start: 09-22-2022 End: 09-22-2022 Telemedicine consultation with patient 09/22/2022 Telemedicine Family Medicine Niecy Addison DO [address] [place] [address] [facility] Start: 09-02-2022 End: 09-02-2023 Fentanyl & Metab, Ur Qnt [facility] Work Phone: Comment on above: Expected: 09/02/2022 (Approximate), Expi res: 09/02/2023 Start: 08-20-2022 Yearly Adult Physical Yearly Adult Physical [facility] Start: 07-08-2022 End: 09-07-2023 MG Breast - bilateral Screening Bilateral screening mammogram Imaging Routine Encounter for screening mammogram for malignant neoplasm of breast Expected: 07/08/2022, Expires: 09/07/2023 [facility] [employer] [facility] Work Phone: Comment on above: Expected: 07/08/2022, Expires: Start: 06-30-2022 End: 06-30-2022 Telemedicine consultation with patient 06/30/2022 Telemedicine Family Medicine Lillian Maldonado, ASSISTANT PLANT MANAGER [address] [place] [address] [facility] Start: 06-09-2022 End: 06-09-2022 Telemedicine consultation with patient 06/09/2022 Telemedicine Family Medicine Niecy Addison DO [address] [place] [address] [facility] Start: 06-07-2022 End: 06-07-2022 Telemedicine consultation with patient 06/07/2022 Telemedicine Family Medicine Niecy Addison DO [address] [place] [address] [facility] Start: 06-02-2022 End: 06-02-2022 Telemedicine consultation with patient 06/02/2022 Telemedicine Family Medicine Lillian Maldonado, ASSISTANT PLANT MANAGER [address] [place] [address] [facility] Start: 05-28-2022 Influenza vaccination Influenza Vaccine (#1) [facility] Start: 04-28-2022 Influenza vaccination [facility] Start: 03-28-2022 Influenza vaccination Flu vaccine (#1) [facility] Start: 03-17-2022 End: 03-17-2022 Telemedicine consultation with patient 03/17/2022 Telemedicine [facility] Medicine Niecy Addison DO [address] [place] [address] [facility] Start: 12-18-2021 COVID-19 Vaccine (4 - Booster for Moderna series) COVID-19 Vaccine (4 - Booster for Moderna series) [facility] Start: 11-25-2021 End: 11-25-2021 Telemedicine consultation with patient 11/25/2021 Telemedicine [facility] Niecy Addison DO [address] [place] [address] [facility] Start: 10-14-2021 COVID-19 VACCINE (4 - Booster for Moderna series) COVID-19 VACCINE (4 - Booster for Moderna series) [facility] Start: 10-14-2021 Covid-19 Vaccine (4 - Moderna series) Covid-19 Vaccine (4 - Moderna series) [facility] Start: 08-19-2021 End: 08-19-2021 Patient encounter procedure 08/19/2021 Office Visit [facility] Niecy Addison DO [address] [place] [address] [facility] Start: 06-11-2021 Depression Monitoring Depression Monitoring [facility] Start: 06-11-2021 Lipid panel [facility] Start: 06-11-2021 End: 06-11-2021 Patient encounter procedure 06/11/2021 Office Visit [facility] Ashely Gonzalez, DO [address] [place], [place] [phone] [facility] Start: 06-07-2021 End: 06-07-2021 Patient encounter procedure 06/07/2021 Office Visit Endocrinology Kathleen Mckeon MD [address] [place], [place] [id number] [facility] Start: 06-05-2021 COVID-19 Vaccine (3 - Booster for Moderna series) COVID-19 Vaccine (3 - Booster for Moderna series) [facility] Start: 05-28-2021 Influenza vaccination Influenza Vaccine (#1) [facility] Start: 05-20-2021 End: 05-20-2021 Patient encounter procedure 05/20/2021 Office Visit Family Medicine Niecy Addison DO [address] [place] [address] [facility] Start: 05-06-2021 COVID-19 Vaccine (3 - Booster for Moderna series) COVID-19 Vaccine (3 - Booster for Moderna series) [facility] Start: 05-04-2021 End: 05-04-2021 Patient encounter procedure 05/04/2021 Office Visit Infectious Diseases Martine Vargas MD [address] [place] [address] [facility] Start: 04-30-2021 End: 04-30-2021 Telemedicine consultation with patient 04/30/2021 Telemedicine Family Medicine Niecy Addison DO [address] [place] [address] [facility] Start: 04-28-2021 Influenza vaccination Flu vaccine (#1) [facility] Work Phone: Start: 03-18-2021 End: 03-18-2021 Patient encounter procedure 03/18/2021 Office Visit Family Medicine Niecy Addison DO [address] [place] [address] [facility] Start: 01-28-2021 End: 01-28-2021 Telemedicine 01/28/2021 Telemedicine Family Medicine Niecy Addison DO [address] [place] [address] [facility] Start: 12-11-2020 End: 12-11-2020 Office Visit 12/11/2020 Office Visit [facility] Start: 10-29-2020 End: 10-29-2020 Virtual Visit 10/29/2020 Virtual Visit [facility] Niecy Addison DO [address] [place] [phone] [facility] Start: 10-24-2020 Creatinine measurement Creatinine monitoring [facility] Start: 10-24-2020 Creatinine monitoring Creatinine monitoring [place] Start: 10-24-2020 Potassium monitoring Potassium monitoring [facility] Start: 09-28-2020 End: 09-28-2020 Procedure visit 09/28/2020 Procedure visit Family Medicine Yelena Silva MD [address] [place] [address] [phone] [facility] Start: 09-03-2020 End: 09-03-2020 Virtual Visit 09/03/2020 Virtual Visit [facility] Niecy Addison DO [address] [place] [phone] [facility] Start: 07-09-2020 Hepatitis B vaccine (2 of 3 - Risk 3-dose series) Hepatitis B vaccine (2 of 3 - Risk 3-dose series) [facility] Start: 07-09-2020 Hepatitis B vaccine (2 of 4 - 4-dose series) Hepatitis B vaccine (2 of 4 - 4-dose series) [facility] Start: 07-09-2020 Hepatitis B Vaccines (2 of 3 - 19+ 3-dose series) Hepatitis B Vaccines (2 of 3 - 19+ 3-dose series) [facility] Start: 07-09-2020 Hepatitis B Vaccines (2 of 3 - 3-dose series) Hepatitis B Vaccines (2 of 3 - 3-dose series) [facility] Start: 05-28-2020 Influenza vaccination Influenza Vaccine (#1) [facility] Start: 05-19-2020 End: 05-19-2020 Office Visit 05/19/2020 Office Visit Family Medicine Carl Fishman MD [address] [place] [address] [phone] [facility] Start: 04-28-2020 HbA1c (Bld) [Mass fraction] A1C test (Diabetic or Prediabetic) [place], [place] Start: 04-28-2020 Hemoglobin A1c measurement [facility] Start: 01-31-2020 [object Object] Diabetic foot exam [place] Start: 01-31-2020 Diabetic foot examination Diabetic foot exam [facility] Start: 12-24-2019 End: 12-24-2019 Office Visit 12/24/2019 Office Visit Family Medicine Carl Fishman MD [address] [place] [address] [phone] [facility] Start: 12-19-2019 Shingles Vaccine (2 of 2) Shingles Vaccine (2 of 2) [place] Start: 12-05-2019 End: 12-05-2019 Office Visit 12/05/2019 Office Visit [facility] Genoveva De La Rosa, PhD [address] [facility] [address] [place] [id number] [facility] Start: 11-26-2019 End: 11-26-2019 Office Visit 11/26/2019 Office Visit [facility] Medicine Carl Fishman MD [address] [place] [address] [phone] [facility] Start: 11-09-2019 A1C test (Diabetic or Prediabetic) A1C test (Diabetic or Prediabetic) [place], [place] Start: 11-09-2019 HbA1c (Bld) [Mass fraction] A1C test (Diabetic or Prediabetic) [place] Start: 09-06-2019 End: 09-06-2019 Patient encounter procedure 09/06/2019 Office Visit Family Medicine Anna Mancilla DO [address] [facility] [address] [place] [address] [phone] [facility] Start: 07-28-2019 Hemoglobin A1c measurement Diabetes: Hemoglobin A1C [facility] Start: 04-28-2019 Influenza vaccination Flu vaccine (#1) [place] Start: 02-02-2019 Creatinine monitoring Creatinine monitoring [place], [place] Start: 02-02-2019 Potassium monitoring Potassium monitoring [place] Start: 08-10-2018 Diabetic retinal exam Diabetic retinal exam [facility] Start: 05-17-2017 3 comp foot exam completed DIABETIC FOOT EXAM [facility] Start: 05-17-2017 Diabetic foot examination Diabetic Foot Exam [facility] Start: 05-03-2017 Hepatitis B screening URINE ALBUMIN:CREATININE RATIO [facility] Start: 05-03-2017 Hepatitis B surface antibody level LDL CHOLESTEROL [facility] Start: 10-31-2016 Hemoglobin A1c/Hemoglobin.total in Blood HBA1C [facility] Start: 2016 Colon cancer screen colonoscopy Colon cancer screen colonoscopy [facility] [employer] [place] Start: 2016 Measurement of occult blood in single stool specimen FIT [facility] Start: 2016 Screening for malignant neoplasm of breast Mammography [facility] Start: 2016 Screening for malignant neoplasm of colon [facility] Start: 2016 Shingles Vaccine (1 of 2) [facility]ing[facility] Vaccine (1 of 2) [facility] Start: 2016 SHINGRIX VACCINE (1 of 2) SHINGRIX VACCINE (1 of 2) [facility] Start: 2016 Varicella-zoster vaccine (product) [facility] Start: 05-28-2014 Pneumococcal 0-64 years Vaccine (2 - PCV) Pneumococcal 0-64 years Vaccine (2 - PCV) [facility] Start: 03-20-2014 Glaucoma screening Dilated Retinal Exam [facility] Start: 03-20-2014 Hepatitis C antibody, confirmatory test DILATED RETINAL EXAM [facility] Start: 02-25-2014 HPV TESTING HPV TESTING [facility] Start: 02-25-2014 Screening for malignant neoplasm of cervix HPV Testing [facility] Start: 06-16-2011 PNEUMOCOCCAL (2 - PCV) PNEUMOCOCCAL (2 - PCV) [facility] Start: 06-16-2011 Pneumococcal 0-64 years Vaccine (2 - PCV) Pneumococcal 0-64 years Vaccine (2 - PCV) [facility] Start: 06-16-2011 Pneumococcal vaccination Pneumococcal Vaccine (2 - PCV) [facility] Start: 2011 Cholesterol [Mass/Vol] Cholesterol [facility] Start: 2011 COLOGUARD (FIT-DNA) COLOGUARD (FIT-DNA) [facility] Start: 2011 Colonoscopy COLONOSCOPY [facility] Start: 2011 COLORECTAL CANCER SCREENING COLORECTAL CANCER SCREENING [facility] Start: [address] COLONOGRAPHY [facility] Start: 2011 FECAL OCCULT BLOOD FECAL OCCULT BLOOD [facility] Start: 2011 Screening for malignant neoplasm of colon [facility] Start: 2011 SIGMOIDOSCOPY SIGMOIDOSCOPY [facility] Start: 04-17-2010 Urine microalbumin profile [facility] Start: 2006 Breast cancer screen Breast cancer screen [place], [place] Start: 2006 Mammography [facility] Start: 2006 Screening for malignant neoplasm of breast [facility] Start: 05-04-2004 Screening for malignant neoplasm of cervix Pap Smear [facility] Start: 1996 Screening for malignant neoplasm of cervix [facility] Start: 1987 Cervical cancer screen Cervical cancer screen [place] Start: 1987 Screening for malignant neoplasm of cervix [facility] Start: 1985 Hepatitis A Vaccines (1 of 2 - Risk 2-dose series) Hepatitis A Vaccines (1 of 2 - Risk 2-dose series) [facility] Start: 1985 Hepatitis B vaccine (1 of 3 - Risk 3-dose series) Hepatitis B vaccine (1 of 3 - Risk 3-dose series) [place] Start: 1985 Tetanus vaccination [facility] Start: 1985 Urine screening for protein Diabetes: Urine Protein Screening [facility] Start: 1984 ANNUAL PCP TEAM CHRONIC DISEASE VISIT ANNUAL PCP TEAM CHRONIC DISEASE VISIT [facility] Start: 1984 Anxiety Screening Anxiety Screening [facility] Start: 1984 BP CONTROLLED (<130/80) BP CONTROLLED (<130/80) [facility] Start: 1984 Hepatitis C antibody, confirmatory test Hepatitis C Antibody [facility] Start: 1984 Hepatitis C screening [facility] Start: 1984 HEPATITIS C SCREENING HEPATITIS C SCREENING [facility] Start: 1984 HIV SCREENING HIV SCREENING [facility] Start: 1984 HIV screening HIV Screening [facility] Start: 1984 Pneumococcal polysaccharide vaccine (product) Pneumococcal Vaccine: PPSV23 (1) [facility] Start: 1984 Tetanus + diphtheria + acellular pertussis vaccine (product) [facility] Start: 1982 COVID-19 Vaccine (1 of 2) COVID-19 Vaccine (1 of 2) [facility] Work Phone: Start: 1981 HIV screen HIV screen [place] Start: 1981 HIV screening [facility] Start: 1978 COVID-19 Vaccine (1) COVID-19 Vaccine (1) [facility] Start: 1978 Depression Monitoring Depression Monitoring [facility] Start: 1976 Diabetic foot examination Diabetes: Foot Exam [facility] Start: 1976 Glaucoma screening Diabetes: Retinopathy Screening [facility] Start: 1976 Lipid panel Lipid screen [place] Start: 1976 Lipid screen Lipid screen [place] Start: 1976 Preventive dental service Diabetes: Dental Exam [facility] Start: 1967 MMR Vaccines (1 of 1 - Standard series) MMR Vaccines (1 of 1 - Standard series) [facility] Start: 1966 COVID-19 Vaccine (#1) COVID-19 Vaccine (#1) [facility] Start: 1966 [facility] Start: 1966 Cyanocobalamin vitamin b-12 Vitamin B-12 [facility] Start: 1966 Diabetes: Celiac Disease Screening Diabetes: Celiac Disease Screening [facility] Start: 1966 HEPATITIS B (1 of 3 - 3-dose series) HEPATITIS B (1 of 3 - 3-dose series) [facility] Start: 1966 Hepatitis B vaccination Hepatitis B (HBV) Vaccine (1 of 3 - 3-dose series) [facility] Start: 1966 Hepatitis B Vaccine (1 of 3 - 3-dose series) Hepatitis B Vaccine (1 of 3 - 3-dose series) [facility] Start: 1966 Hepatitis C screening Hepatitis C screen [facility] Start: 1966 HIV screening HIV Screening [facility] Start: 1966 Lipid panel Lipid Panel [facility] Start: 1966 Screening for malignant neoplasm of colon [facility] Start: 1966 Thyroid stimulating hormone measurement TSH Level [facility] Start: 1966 Yearly Adult Physical Yearly Adult Physical [facility] End: 03-19-2021 Bacteria identified in Urine by Culture Urine Culture Microbiology Routine Acute pyelonephritis Neurogenic bladder 1 Occurrences starting 03/19/2021 until 03/19/2021 [employer] Work Phone: Comment on above: 1 Occurrences starting 03/19/2021 until 03/19/2021 Bacteria identified in Urine by Culture [employer] Work Phone: End: 04-14-2021 Bacteria identified in Urine by Culture Urine Culture Microbiology Routine Urinary frequency 1 Occurrences starting 04/14/2021 until 04/14/2021 [employer] Work Phone: Comment on above: 1 Occurrences starting 04/14/2021 until 04/14/2021 Cobalamin (Vitamin B12) [Mass/volume] in Serum or Plasma Vitamin B12 Lab Routine Chronic painful diabetic neuropathy (CMS/HCC) ([facility]) Ordered: 03/10/2023 [employer] Comment on above: Ordered: 03/10/2023 Cologuard colon canc er screening Cologuard colon cancer screening Lab Routine Colon cancer screening Ordered: 12/21/2023 [employer] Comment on above: Ordered: 12/21/2023 Cologuard colon canc er screening Cologuard colon cancer screening Lab Routine Screen for colon cancer Ordered: 04/19/2024 [employer] Comment on above: Ordered: 04/19/2024 Cologuard colon canc er screening Cologuard colon cancer screening Lab Routine Screen for colon cancer Ordered: 03/13/2025 [employer] Work Phone: Comment on above: Ordered: 03/13/2025 Fentanyl & Metab, Ur Qnt Fentanyl & Metab, Ur Qnt Lab Routine Chronic painful diabetic neuropathy (CMS/HCC) ([facility]) 12/14/2022 9:02 AM EDT [employer] 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 03/11/2025 4:46 PM EDT [facility] Hemoglobin A1c/Hemoglobin.total in Blood Hemoglobin A1c Lab Routine Chronic painful diabetic neuropathy (CMS/HCC) (HCC) Ordered: 03/10/2023 [facility] [employer] Comment on above: Ordered: 03/10/2023 Hemoglobin A1c/Hemoglobin.total in Blood HEMOGLOBIN A1C (POC) Lab Routine Type 1 diabetes mellitus with diabetic polyneuropathy (HCC) Ordered: 07/17/2024 [facility] Work Phone: Comment on above: Ordered: 07/17/2024 Hepatitis C virus Ab [Presence] in Serum or Plasma by Immunoassay Hepatitis C antibody Lab Routine Need for hepatitis C screening test Ordered: 03/10/2023 [facility] [employer] Comment on above: Ordered: 03/10/2023 HIV 1+2 Ab+HIV1 p24 Ag [Presence] in Serum or Plasma by Immunoassay HIV-1 and HIV-2 Antigen-Antibody Screen Lab Routine Screening for HIV (human immunodeficiency virus) Ordered: 03/10/2023 [facility] [employer] Comment on above: Ordered: 03/10/2023 Lipid 1996 panel - Serum or Plasma Lipid panel Lab Routine Screening for lipid disorders Ordered: 03/10/2023 [facility] [employer] Comment on above: Ordered: 03/10/2023 End: 05-25-2022 Mri spinal canal lumbar w/o contrast material [facility] Work Phone: Comment on above: 1 Occurrences starting 05/25/2022 until 05/25/2022 End: 05-25-2022 Mri spinal canal thoracic w/o contrast matrl [facility] Work Phone: Comment on above: 1 Occurrences starting 05/25/2022 until 05/25/2022 End: 05-03-2019 Pain Management Drug Screen Pain Management Drug Screen Lab Routine Encounter for monitoring opioid maintenance therapy 1 Occurrences starting 05/03/2019 until 05/03/2019 [facility] [employer] Comment on above: 1 Occurrences starting 05/03/2019 until 05/03/2019 Pain Management Drug Screen Pain Management Drug Screen Lab Routine Encounter for monitoring opioid maintenance therapy 05/03/2019 3:58 PM EDT [facility] End: 03-16-2022 Pain Management Drug Screen [facility] Work Phone: Comment on above: 1 Occurrences starting 03/16/2022 until 03/16/2022 End: 07-22-2025 Polysomnogram POLYSOMNOGRAM (PSG) Procedures Routine Snoring Chronic, continuous use of opioids Non-restorative sleep Excessive daytime sleepiness RLS (restless legs syndrome) 1 Occurrences starting 07/22/2024 until 07/22/2025 [facility] Work Phone: Comment on above: 1 Occurrences starting 07/22/2024 until 07/22/2025 STAPH AUREUS PCR STAPH AUREUS PC R Lab Routine 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) 11/10/2022 6:18 PM EDT [facility] Work Phone: Thyrotropin [Units/volume] in Serum or Plasma TSH Lab Routine Chronic painful diabetic neuropathy (CMS/HCC) (HCC) Thyroid disorder screen Ordered: 03/10/2023 [facility] [employer] Comment on above: Ordered: 03/10/2023 [facility] Immunizations Immunization Date Immunization Notes Care Provider Fa [facility] 09-19-2024 influenza, injectabl e, madin [place] canine kidney, preservative free Verlaine Azael DO Work Phone: [facility] [employer] 09-19-2024 influenza virus vaccine, unspecified formulation Verlaine Azael DO Work Phone: [facility] [employer] 09-21-2023 hepatitis B vaccine, adult dosage Verlaine Azael DO Work Phone: [facility] [employer] 06-24-2023 Hepatitis B vaccine (recombinant), CpG adjuvanted Gavin Otto MD Work Phone: [facility] Work Phone: 06-24-2023 Influenza, injectabl e, Madin [place] Canine Kidney, preservative free, quadrivalent Gavin Otto MD Work Phone: [facility] Work Phone: 06-24-2023 Moderna COVID-19 vaccine, Fall 2022, 12 yeasrs and older (50mcg/0.5mL) Gavin Otto MD Work Phone: [facility] Work Phone: 06-24-2023 influenza virus vaccine, unspecified formulation Fern Flowers MD Work Phone: [facility] 07-02-2022 influenza, injectabl e, quadrivalent, preservative free Gavin Otto MD Work Phone: [facility] Work Phone: 07-02-2022 Pneumococcal Conjuga te PCV20, Pf (Prevnar 20) Verlaine Azael DO Work Phone: [facility] 07-02-2022 influenza virus vaccine, unspecified formulation Verlaine Azael DO Work Phone: [facility] 08-19-2021 COVID-19, MODERNA BL UE border, Primary or Immunocompromised, (age 12y+), IM, 100 mcg/0.5mL Verlaine Azael DO Work Phone: [facility] Work Phone: 08-02-2021 influenza, injectabl e, quadrivalent, preservative free Ashely Pierreo DO Work Phone: [facility] 12-04-2020 COVID-19, Moderna, P F, 100mcg/0.5mL Verlaine Azael DO Work Phone: [facility] Work Phone: 11-06-2020 COVID-19, Moderna, P F, 100mcg/0.5mL Verlaine Azael DO Work Phone: [facility] 06-11-2020 hepatitis B vaccine, adult dosage Verlaine Azael [facility] 06-11-2020 influenza, injectabl e, quadrivalent, preservative free Verlaine Azael [facility], [place] 03-14-2020 zoster vaccine recombinant Verlaine Azael [facility], [place] 10-24-2019 zoster vaccine recombinant [facility] [place] 08-06-2019 Seasonal, quadrivale nt, recombinant, injectable influenza vaccine, preservative free Gavin Otto MD Work Phone: [facility] Work Phone: 08-01-2019 influenza virus vaccine, unspecified formulation Jean-Paul Villalpando MD Work Phone: [facility] 07-13-2018 influenza, injectabl e, quadrivalent, preservative free Gavin Otto MD Work Phone: [facility] Work Phone: 07-13-2018 Influenza, Quadv, 6 mo and older, IM, PF (Flulaval, Fluarix) [facility] 07-13-2018 influenza, seasonal, injectable Gavin Otto MD Work Phone: [facility] Work Phone: 07-13-2018 tetanus toxoid, redu hugo diphtheria toxoid, and acellular pertussis vaccine, adsorbed [facility] 09-29-2017 tetanus toxoid, redu hugo diphtheria toxoid, and acellular pertussis vaccine, adsorbed [facility] [place] 06-14-2017 influenza, injectabl e, quadrivalent, preservative free [facility] 06-19-2015 influenza, seasonal, injectable Gavin Otto MD Work Phone: [facility] Work Phone: 06-06-2014 influenza, seasonal, injectable Gavin Otto MD Work Phone: [facility] Work Phone: 09-20-2013 Influenza Vaccine, unspecified formulation [facility] , [place] 09-20-2013 influenza virus vaccine, unspecified formulation Mri (1.5t) [facility] 05-28-2013 pneumococcal polysaccharide vaccine, 23 valent Verlaine Azael DO Work Phone: [facility] 06-22-2012 Influenza Vaccine, unspecified formulation [facility] , [place] 06-22-2012 influenza virus vaccine, unspecified formulation Mri (1.5t) [facility] 08-28-2010 tetanus toxoid, redu hugo diphtheria toxoid, and acellular pertussis vaccine, adsorbed Andrés GRANT Work Phone: 06-16-2010 pneumococcal polysaccharide vaccine, 23 valent [facility], [place] 04-16-2010 Td, unspecified formulation [facility] 04-16-2010 tetanus and diphther ia toxoids, adsorbed, preservative free, for adult use (2 Lf of tetanus toxoid and 2 Lf of diphtheria toxoid) Mri (1.5t) [facility] Work Phone: 04-16-2010 tetanus and diphther ia toxoids, not adsorbed, for adult use Gavin Otto MD Work Phone: [facility] Work Phone: 10-11-2001 Influenza Vaccine, unspecified formulation [facility] [place] 10-11-2001 influenza virus vaccine, unspecified formulation Rose Taylor PA-C Work Phone: [facility] 06-21-1996 Influenza Vaccine, unspecified formulation [facility] [place] 06-21-1996 influenza virus vaccine, unspecified formulation [facility] 06-21-1996 influenza, seasonal, injectable Gavin Otto MD Work Phone: [facility] Work Phone: Payers Date Payer Category Payer Self-pay 2022 Commercial Managed C are - HMO MMO [employer] [id number] 2022 Managed Care (Private) [id number] [id number] 2022 Unknown [id number]. [id number] 2022 Unknown [id number]. [id number] 2017 Private Health Insurance KWAME DE [employer]A xxxxxxxxxx 2017-Present [phone] [facility] [address] [place] [address] xxxxxxxxxx [id number] 2014 Private Health Insurance [id number]. [id number] 2012 Private Health Insurance [facility] NON-HMO/CHOICE/CHOICE PLUS [id number] 2012-Present Indemnity [id number] 2012 Private Health Insurance [id number] 1966 Unknown [id number] 2.16.840.1.218374.3.579.2. 8 1966 Unknown [id number] 2.16.840.1.670432.3.579.2. 1966 Unknown [id number] 2.16.840.1.393336.3.579.2. 8 1966 Unknown [id number] 2.16.840.1.169773.3.579.2. 8 1966 Unknown [id number] 2.16.840.1.626730.3.579.2. 668 1966 Unknown [id number] 2.16.840.1.596673.3.579.2. 668 1966 Unknown [id number] 2.16.840.1.645943.3.579.2. 668 1966 Unknown [id number] 2.16.840.1.532516.3.579.2. 668 1966 Unknown [id number] 2.16.840.1.407377.3.579.2. 668 1966 Unknown [id number] 2.16.840.1.344560.3.579.2. 1069 1966 Unknown [id number] 2.16.840.1.451638.3.579.2. 356 1966 Unknown [id number] 2.16840.1.960492.3.579.2. 356 1966 Unknown [id number] 2.16.840.1.195335.3.579.2. 1245 1966 Unknown [id number] 2.16.840.1.934723.3.579.2. 1244 1966 Unknown [id number] [id number]. 1244 Unknown [id number] 2.16840.1.699748.3.579.2. 462 Unknown [id number] 2.16840.1.924683.3.579.2. 462 Unknown [id number] 2.16840.1.880753.3.579.2. 462 Unknown [id number] [id number]. 462 Social History Date Type Detail Facility Start: 10-24-2019 End: 07-17-2024 Tobacco smoking status NHIS Former smoker [place], [place] Start: 08-28-1978 End: 08-28-1986 History of tobacco use Cigarette Smoker [place] Start: 10-24-2019 End: 09-19-2024 Alcohol intake Current non-drinker of alcohol (finding) [employer] Phone: Start: 05-11-2017 Tobacco Comment quit as teen [facility] [employer] Start: 1965 Sex Assigned At Not on file [facility] [facility] Start: 11-03-2014 End: 10-30-2024 Tobacco smoking status NHIS [facility]oker [facility] Work Phone: Start: 06-11-2020 End: 10-30-2024 Tobacco use and exposure Never used [employer] Start: 05-03-2019 End: 03-26-2024 Alcohol intake No [employer] [employer] Start: 05-15-2022 End: 10-30-2024 Exposure to SARS-CoV-2 (event) Not sure [facility] Start: 1965 Sex Assigned At Female [facility] Start: 08-28-1978 End: 08-28-1986 History of tobacco use Current smoker [employer] Phone: Start: 04-28-2022 History SDOH Alcohol Frequency 1 [employer] Phone: Start: 04-28-2022 History SDOH Social Connections Phone 5 [employer] Phone: Start: 04-28-2022 History SDOH Social Connections Membership 2 [employer] Phone: Start: 04-28-2022 History SDOH Social Connections Living 3 [employer] Phone: Start: 04-28-2022 History SDOH Physical Activity DPW 7 [employer] Phone: Start: 04-28-2022 History SDOH Physical Activity MPS 6 [employer] Phone: Start: 04-29-2022 End: 03-26-2024 Cigarettes smoked current (pack per day) - Reported 1 [facility] Start: 07-23-2022 Adolescent depression screening assessment 2 [facility] Start: 06-17-2022 Gender identity Identifies as female gender (finding) [facility] Start: 06-17-2022 Sexual orientation Heterosexual (finding) [facility] smoking consumption unknown [facility] Work Phone: (I/We) worried igor er (my/our) food would run out before (I/we) got money to buy more. Never true [employer] Start: 03-28-2022 Sex Female (finding) [employer] Goals Date Patient Goal Desired Activity /State [...] Call placed to pharmacy and spoke with cogeneration technician. They are unable to submit the refill to [employer] as it is too soon. They are unable to see if there was a PA approval until pt is due for next refill. software technician stated they would call office if there is an issue when pharmacy is filling the next script. [facility] [employer] 04-22-2025 Miscellaneous Notes Call placed to pharmacy and spoke with cogeneration technician. They are unable to submit the refill to insurasnce as it is too soon. They are unable to see if there was a PA approval until pt is due for next refill. software technician stated they would call office if there is an issue when pharmacy is filling the next script. Spoke with PharmD Please have the pharmacist re-run the medication as there is electronic documentation of approval of PA completed 04/18/25 that runs through 03/18/25 to 04/18/2026 Approved 04/18/2025 11:53 AM Appeal supported: No Note from payer: CaseId:[id number];Status:Approved;Rev iew Type:Prior Auth;Coverage Start Date:03/18/2025;Coverage End Date:04/18/2026; Payer: [facility] Case ID: [id number] Spoke with [facility] pharmacy. Patient paid out of pocket for a 15 day supply on 04/17/25. This was $360 out of pocket. Patient will need a new script to cover the last 15 days as they had to waste it to fill those 15 days. They do need a prior auth. Pharmacy states that it needs to be a halfway prior auth to cover the full year [...] [facility] Updated/Validated preferred pharmacy: Yes [id number] - [place], [place] - [address] [facility] Patient instructed to contact the pharmacy [...] medication tab): 01/13/25 documented in this encounter [facility] 04-22-2025 Telephone encounter Note Spoke with PharmD Please have the pharmacist re-run the medication as there is electronic documentation of approval of PA completed 04/18/25 that runs through 03/18/25 to 04/18/2026 Approved 04/18/2025 11:53 AM Appeal supported: No Note from payer: CaseId:[id number];Status:Approved;Rev iew Type:Prior Auth;Coverage Start Date:03/18/2025;Coverage End Date:04/18/2026; Payer: [facility] - Commercial Case ID: [id number] [employer] [facility] 04-22-2025 Telephone encounter Note Spoke with [facility] pharmacy. Patient paid out of pocket for a 15 day supply on 04/17/25. This was $360 out of pocket. Patient will need a new script to cover the last 15 days as they had to waste it to fill those 15 days. They do need a prior auth. Pharmacy states that it needs to be a intermediate teacher prior auth to cover the full year of prescriptions. Please advise. [employer] 04-22-2025 Telephone encounter Note Please call pharmacy to confirm PA that was approved and patient is able to get medications when due as our office keeps getting paperwork from CoverMyMeds to complete PA [employer] 04-21-2025 Telephone encounter Note Medication(s) refilled: Requested [...] Provider: NIECY ADDISON DO 04/21/2025 4:41 PM [facility] 04-21-2025 Telephone encounter Note Ordering provider: Niecy Addison DO Date of last office visit: 03/13/25 Date of next office visit: 06/04/2025 [facility] Updated/Validated preferred pharmacy: Yes [id number] - [place], [place] - [address] [facility] Patient instructed to contact the pharmacy [...] of last refill (see medication tab): 01/13/25 [facility] 03-13-2025 Evaluation + Plan note Associated Problem(s): [...] (400 mg) by mouth 2 times daily. [facility] 03-13-2025 Evaluation + Plan note Associated Problem(s): [...] she will let me know via MyChart [employer] 03-13-2025 History of Present illness Narrative Images from the original note were not included. Prechart note: (the following data was documented before the visit began) Rooming: vv Possible agenda: LTOT Provider notes: go over labs - KATE? No microalbuminuria Next appt 06/12/25 Multidisciplinary team needs: Health Maintenance to be addressed today: CRC - cologuard ? 8/25 [place] Search by Drug Name [place] Drug List Health Maintenance Due Topic Date Due Diabetes: Celiac Disease Screening Never done Colorectal Cancer Screening Never done MMR Vaccines (1 of 1 - Standard series) Never done Diabetes: Foot Exam Never done Diabetes: Dental Exam Never done Mammogram Never done COVID-19 Vaccine ( season) 2024 Depression Monitoring 03/18/2025 (end precharting)- [facility] - [address] [facility] [address] Dept: [phone] Dept Loc: [phone] Patient was seen today via Telehealth by [...] that they are currently in the state [facility]. If the patient is a minor, permission [...] - she will let me know via [employer] Screen for colon cancer 2023 order will [...] Niecy Addison DO on 03/13/2025 9:25 AM [facility] PAIN MANAGEMENT DRUG PANEL Date Value [...] reaction(s): Intolerance, Other documented in this encounter [facility] 03-13-2025 Miscellaneous Notes Associated Problem(s): Chronic [...] Modules accepted: Orders documented in this encounter [facility] 03-13-2025 Note Addended by: NIECY ADDISON on: 03/13/2025 10:01 AM Modules accepted: Orders [facility] 03-13-2025 Note Addended by: NIECY ADDISON on: 03/13/2025 10:01 AM Modules accepted: Orders [facility] 02-20-2025 Telephone encounter Note PA filled out and in outgoing fax box [facility] 02-20-2025 Miscellaneous Notes PA filled out [...] am awaiting insurance decision - as per CITIA Message to patient If unable to get authorized, patient may pay [id number] for 1 or more patches to avoid [...] medicines) Protocols used: Medication Refill and Renewal [id number] documented in this encounter [employer] 02-20-2025 Telephone encounter Note Please call pharmacy to check on status of PA - I have not had any further contact with insurance company re: electronic PA that was submitted [facility] [employer] 02-17-2025 Telephone encounter Note Call made to patient and message released. Patient stated understanding. No further needs at this time [facility] 02-17-2025 Telephone encounter Note I just initiated the PA and am awaiting insurance decision - as per [employer] Message to patient If unable to get authorized, patient may pay [id number] for 1 or more patches to avoid withdrawal [facility] 02-17-2025 Telephone encounter Note S: Patient's [...] medicines) Protocols used: Medication Refill and Renewal [id number] [facility] 01-13-2025 Telephone encounter Note Past 14 days Signed 2 weeks ago (12/30/2024): [facility] 01-13-2025 Miscellaneous Notes Past 14 days Signed 2 weeks ago (12/30/2024): documented in this encounter [facility] 12-30-2024 Telephone encounter Note Refills already sent to pharmacy [facility] 12-30-2024 Miscellaneous Notes Refills already sent [...] medicines) Protocols used: Medication Refill and Renewal [id number] documented in this encounter [facility] 12-30-2024 Telephone encounter Note Name of caller: Jael Contact phone number: [phone] Relationship to Patient: patient Provider: Azael Practice: [facility] Chief Complaint/Reason for Call: Patient states at her last appointment, it was discussed that her imipramine (Tofranil) was going to be split up into 2 different prescriptions: imipramine 100 mg tablet nightly imipramine (Tofranil) 50 MG tablet PRN Patient asking refills be sent to [facility] in [place]. Please advise. Best time of day caller can be reached: any Patient advised that office/PCP has 24-48 business hours to return their call: Yes- please notify patient via [employer] when sent [facility] 12-30-2024 Miscellaneous Notes Name of caller: aJel Contact phone number: [phone] Relationship to Patient: patient Provider: Azael Practice: [facility] Chief Complaint/Reason for Call: Patient states at her last appointment, it was discussed that her imipramine (Tofranil) was going to be split up into 2 different prescriptions: imipramine 100 mg tablet nightly imipramine (Tofranil) 50 MG tablet PRN Patient asking refills be sent to [facility] in [place]. Please advise. Best time of day caller can be reached: any Patient advised that office/PCP has 24-48 business hours to return their call: Yes- please notify patient via [employer] when sent Patient out of medication. Medication [...] medication tab): 09/30/24 Updated/Validated preferred pharmacy: Yes- [id number] Patient instructed to contact the pharmacy prior to picking up the medication: Yes Chart reviewed for compliance with [facility] refill guidelines. Screening criteria met. Last appointment 12/10/24. Next appointment 03/13/25. Last labs . Please review and send prescription as appropriate. If no future appointment noted, the last office visit notes were reviewed to determine follow-up time frame and this note forwarded to front end developer designer to schedule. documented in this encounter [facility] 12-30-2024 Telephone encounter Note Patient out [...] medication tab): 09/30/24 Updated/Validated preferred pharmacy: Yes- [id number] - [place] - [address] [facility] Patient instructed to contact the pharmacy prior to picking up the medication: Yes [facility] 12-30-2024 Telephone encounter Note Chart reviewed for compliance with [facility] refill guidelines. Screening criteria met. Last appointment 12/10/24. Next appointment 03/13/25. Last labs . Please review and send prescription as appropriate. If no future appointment noted, the last office visit notes were reviewed to determine follow-up time frame and this note forwarded to front end developer designer to schedule. [facility] 12-28-2024 Telephone encounter Note S: Patient called [...] medicines) Protocols used: Medication Refill and Renewal [id number] [facility] 12-17-2024 Telephone encounter Note Images from the original note were not included. Most recent Endocrinology visit: Last encounter Visit on 07/17/2024 (with Fern Flowers) 12/08/2023 in [facility] with FERN JACKSON for Type 1 [...] on file in the last 12 months [facility] 12-17-2024 Miscellaneous Notes Images from the original [...] last 12 months documented in this encounter [facility] 12-10-2024 Evaluation + Plan note Associated Problem(s): Microalbuminuria Recheck urine to confirm previous abnormality Currently on ARB [facility] 12-10-2024 Miscellaneous Notes Associated Problem(s): Microalbuminuria Recheck urine to confirm previous abnormality Currently on ARB Associated Problem(s): Insomnia Overall controlled on Imipramine 100 mg but having to occasionally take an extra 50 mg Will send PRN refill to pharmacy She will let me know via [employer] if having to use extra 50 mg more frequently in the week/month Associated Problem(s): Chronic painful diabetic neuropathy (CMS/HCC) (HCC) Controlled After addressing medication(s) compliance, adverse effects, and efficacy of treatment(s), medications for this controlled chronic condition will be continued. UDS ordered documented in this encounter [facility] 12-10-2024 Miscellaneous Notes Associated Problem(s): Microalbuminuria [...] Modules accepted: Orders documented in this encounter [facility] 12-10-2024 Evaluation + Plan note Associated Problem(s): Insomnia Overall controlled on Imipramine 100 mg but having to occasionally take an extra 50 mg Will send PRN refill to pharmacy She will let me know via MyChart if having to use extra 50 mg more frequently in the week/month [facility] 04-15-2025 Evaluation + Plan note Associated Problem(s): Chronic painful diabetic neuropathy (CMS/HCC) (HCC) Controlled After addressing medication(s) compliance, adverse effects, and efficacy of treatment(s), medications for this controlled chronic condition will be continued. UDS ordered [facility] 12-10-2024 History of Present illness Narrative Images from the original note were not included. Prechart note: (the following data was documented before the visit began) Rooming: vv Possible agenda: Provider notes: next LTOT 03/13/25; urine ordered On Imipramine 100 mg (2-50mg) - ok? Multidisciplinary team needs: Health Maintenance to be addressed today: mammo; CRC, labs - endo not ordering TSH, CMP, lipid? [place] Medicaid Search by Drug Name [place] Medicaid Drug List Health Maintenance Due Topic Date Due Diabetes: Celiac Disease Screening Never done Colorectal Cancer Screening Never done MMR Vaccines (1 of 1 - Standard series) Never done Diabetes: Foot Exam Never done Diabetes: Dental Exam Never done Mammogram Never done COVID-19 Vaccine ( season) 2024 Diabetes: Estimated Glomerular Filtration Rate for Kidney Health 09/21/2024 Lipid Panel 09/21/2024 (end precharting)- [facility] - [address] [facility] [address] Dept: [phone] Dept Loc: [phone] Patient was seen today via Telehealth by [...] that they are currently in the state [facility]. If the patient is a minor, permission [...] pharmacy She will let me know via [employer] if having to use extra 50 mg more frequently in the week/month Orders: - Comprehensive metabolic panel 3. Microalbuminuria Assessment & Plan: Recheck urine to confirm previous abnormality Currently on ARB Orders: - Microalbumin / creatinine urine ratio 4. [facility] current use 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 - PAIN [...] Monitoring: No data to display OARRs Reviewed. [employer] PAIN MANAGEMENT DRUG PANEL Date Value Ref [...] Judgment: Judgment normal. documented in this encounter [facility] 12-10-2024 History of Present illness Narrative Images from the original note were not included. Prechart note: (the following data was documented before the visit began) Rooming: vv Possible agenda: Provider notes: next LTOT 03/13/25; urine ordered On Imipramine 100 mg (2-50mg) - ok? Multidisciplinary team needs: Health Maintenance to be addressed today: mammo; CRC, labs - endo not ordering TSH, CMP, lipid? [place] Medicaid Search by Drug Name [place] Medicaid Drug List Health Maintenance Due Topic Date Due Diabetes: Celiac Disease Screening Never done Colorectal Cancer Screening Never done MMR Vaccines (1 of 1 - Standard series) Never done Diabetes: Foot Exam Never done Diabetes: Dental Exam Never done Mammogram Never done COVID-19 Vaccine ( season) 2024 Diabetes: Estimated Glomerular Filtration Rate for Kidney Health 09/21/2024 Lipid Panel 09/21/2024 (end precharting)- [facility] - [address] [facility] [address] Dept: [phone] Dept Loc: [phone] Patient was seen today via Telehealth by [...] they are currently in the state of [place]. If the patient is a minor, permission [...] pharmacy She will let me know via [employer] if having to use extra 50 mg more frequently in the week/month Orders: - Comprehensive metabolic panel 3. Microalbuminuria Assessment & Plan: Recheck urine to confirm previous abnormality Currently on ARB Orders: - Microalbumin / creatinine urine ratio 4. [facility] current use 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 - PAIN [...] Monitoring: No data to display OARRs Reviewed. [employer] PAIN MANAGEMENT DRUG PANEL Date Value Ref [...] Judgment: Judgment normal. documented in this encounter [facility] 12-10-2024 Instructions Niecy Addison DO - 12/10/2024 1:00 PM EDT Please call [phone] to schedule an appointment for your mammogram. documented in this encounter [facility] 12-10-2024 Yodit Addison DO - 12/10/2024 1:00 PM EDT Please call [phone] to schedule an appointment for your mammogram. documented in this encounter [facility] 12-10-2024 Note Addended by: PAT ALEJANDRE on: 03/11/2025 04:25 PM Modules accepted: Orders [facility] 10-30-2024 History of Present illness Narrative [...] with renal U/S documented in this encounter [facility] Work Phone: 09-30-2024 Telephone encounter Note Name of caller: Jael Contact phone number: [phone] Relationship to Patient: spouse/SO Provider: Dr. Addison Practice: [facility] Chief Complaint/Reason for Call: Jael called in [...] business hours to return their call: Yes [facility] 09-30-2024 Miscellaneous Notes Name of caller: Jael Contact phone number: [phone] Relationship to Patient: spouse/SO Provider: Dr. Addison Practice: [facility] Chief Complaint/Reason for Call: Jael called in [...] of caller: Jael Benson Contact phone number: [phone] Relationship to Patient: spouse/SO Provider: Dr. Addiosn Practice: [facility] Chief Complaint/Reason for Call: Caller was calling in to make sure the CITIA message for a Rx refill was received, see message above. Caller stated pt is out of this medication and will need this filled today. Caller also wants to make sure that this will be sent to: [facility] [address] [place] [address] Ph. [phone] Please advise. Thank you. Best time of day caller can be reached: Any Patient advised that office/PCP has 24-48 business hours to return their call: Yes Last apt 09/19/24. Next apt 12/10/24 documented in this encounter [facility] [employer] 09-30-2024 Telephone encounter Note Name of caller: Jael Benson Contact phone number: [phone] Relationship to Patient: spouse/SO Provider: Dr. Addison Practice: [facility] Chief Complaint/Reason for Call: Caller was calling in to make sure the CITIA message for a Rx refill was received, see message above. Caller stated pt is out of this medication and will need this filled today. Caller also wants to make sure that this will be sent to: [facility] [address] [place] [address]. [phone] Please advise. Thank you. Best time of day caller can be reached: Any Patient advised that office/PCP has 24-48 business hours to return their call: Yes [facility] [employer] 09-30-2024 Telephone encounter Note Last apt 09/19/24. Next apt 12/10/24 [facility] [employer] 09-25-2024 History of Present illness Narrative Living [...] that they are currently in the state [facility]. If the patient is a minor, permission [...] dogs Support System: , dad lives in [place], mom a little over a year ago. Son, Edward who lives across the street. Expecting a baby in April. Family Mental Health Hx: no Explain: Education: some college Employment: no If Unemployed Receiving Disability: no Disability Pending?: no Desire to return to work: no Financial Concerns: no Legal Concerns: no Alcohol Use: none Substance Use: none Hx of Trauma: no Spiritual: Temple but not over the top, believe in [...] different times at main campus [facility]Tx: yes, [facility] x4 years Previous Dx: Depression, anxiety, hx [...] 911 or ED. documented in this encounter [facility] 09-19-2024 Evaluation + Plan note Associated Problem(s): Essential hypertension Controlled After addressing medication(s) compliance, adverse effects, and efficacy of treatment(s), medications for this controlled chronic condition will be continued. [facility] 09-19-2024 Evaluation + Plan note Associated Problem(s): Insomnia Controlled After addressing medication(s) compliance, adverse effects, and efficacy of treatment(s), medications for this controlled chronic condition will be continued. [facility] [employer] 09-19-2024 Evaluation + Plan note Associated Problem(s): Chronic painful diabetic neuropathy (CMS/HCC) (HCC) Controlled After addressing medication(s) compliance, adverse effects, and efficacy of treatment(s), medications for this controlled chronic condition will be continued. [facility] to meet with patient for Living with Pain evaluation Yearly LTOT paperwork filled out today [facility] [employer] 09-19-2024 Miscellaneous Notes Associated Problem(s): Essential hypertension [...] this controlled chronic condition will be continued. [facility] to meet with patient for Living with Pain evaluation Yearly LTOT paperwork filled out today documented in this encounter [facility] 09-19-2024 Miscellaneous Notes Associated Problem(s): Essential [...] this controlled chronic condition will be continued. [facility] to meet with patient for Living with Pain evaluation Yearly LTOT paperwork filled out today Addended by: NIECY ADDISON on: 09/20/2024 09:06 AM Modules accepted: Orders documented in this encounter [facility] 09-19-2024 History of Present illness Narrative Images from the original note were not included. Prechart note: (the following data was documented before the visit began) Rooming: Yearly LTOT packet (found in black bins in clinic), urine for UDS, PHQ9 Possible agenda: LTOT Provider notes: Multidisciplinary team needs: [facility] assessment? Health Maintenance to be addressed today: [...] Rate for Kidney Health 09/21/2024 (end precharting)- [facility] - [address] [facility] [address] Dept: [phone] Dept Loc: [phone] Assessment/Plan 1. Chronic painful diabetic neuropathy (CMS/HCC) (HCC) Assessment & Plan: Controlled After addressing medication(s) compliance, adverse effects, and efficacy of treatment(s), medications for this controlled chronic condition will be continued. [facility] to meet with patient for Living with [...] controlled chronic condition will be continued. 4. [facility] current use 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 - PAIN [...] Monitoring: No data to display OARRs Reviewed. [employer] PAIN MANAGEMENT DRUG PANEL Date Value Ref [...] was not notified of possible fall risk. Personal Financial Advisor: not offered, due to no disrobing or intimate exam anticipated PHQ2: negative Suicidal ideation: absent Food insecurity screening: negative Grade Recorder used: no documented in this encounter [facility] 09-19-2024 History of Present illness Narrative Images from the original note were not included. Prechart note: (the following data was documented before the visit began) Rooming: Yearly LTOT packet (found in black bins in clinic), urine for UDS, PHQ9 Possible agenda: LTOT Provider notes: Multidisciplinary team needs: [facility] assessment? Health Maintenance to be addressed today: [...] Rate for Kidney Health 09/21/2024 (end precharting)- [facility] [address] [facility] [address] Dept: [phone] Dept Loc: [phone] Assessment/Plan 1. Chronic painful diabetic neuropathy (CMS/HCC) ([facility]) Assessment & Plan: Controlled After addressing medication(s) compliance, adverse effects, and efficacy of treatment(s), medications for this controlled chronic condition will be continued. [facility] to meet with patient for Living with [...] controlled chronic condition will be continued. 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 [employer] PAIN MANAGEMENT DRUG PANEL Date Value Ref [...] was not notified of possible fall risk. Personal Financial Advisor: not offered, due to no disrobing or intimate exam anticipated PHQ2: negative Suicidal ideation: absent Food insecurity screening: negative Grade Recorder used: no documented in this encounter [facility] [employer] 09-19-2024 Note Addended by: NIECY ADDISON on: 09/20/2024 09:06 AM Modules accepted: Orders [facility] [employer] 09-19-2024 Note Addended by: NIECY ADDISON on: 09/20/2024 09:06 AM Modules accepted: Orders [facility] [employer] 09-19-2024 Note Addended by: NIECY ADDISON on: 09/20/2024 09:06 AM Modules accepted: Orders [facility] [employer] 09-19-2024 Note Addended by: NIECY ADDISON on: 09/20/2024 09:06 AM Modules accepted: Orders [facility] [employer] 07-22-2024 Note HNO ID: [id number] Author: KOKI PEÑA APRN.FRETTED INSTRUMENT MAKER HAND Service: ? Author Type: Nurse Practitioner Type: Progress Notes Filed: 07/28/2024 06:02 Note Text: [facility] New Patient Evaluation PATIENT [...] has gained 22 pounds since 6 mos. [place] Sleepiness Scale: Sitting and readin Watching TV: [...] near accidents due to drowsy drivin 07/16/2024 [place] Sleepiness Scale Score Incomplete 07/16/2024 PROMIS CAT [...] LEEP LAPAROSCOPY DIAGN (more content not included)... [facility] 07-22-2024 History of Present illness Narrative Images from the original note were not included. [facility] New Patient Evaluation PATIENT [...] has gained 22 pounds since 6 mos. [place] Sleepiness Scale: Sitting and readin Watching TV: [...] near accidents due to drowsy drivin 07/16/2024 [place] Sleepiness Scale Score Incomplete 07/16/2024 PROMIS CAT [...] every 10 days. Blood-Glucose Meter,Continuous (DEXCOM G6 FIELD TRAINING AGENT) misc Use as directed to monitor blood [...] 3 mg/actuation nasal spray (BAQSIMI) Use 1 [place] in the nose as needed for low [...] for obstructive sleep apnea. I will send [facility] msg - Discussed with the patient [...] visit 3 wks after PSG Koki Peña APRN.FRETTED INSTRUMENT MAKER HAND documented in this encounter [facility] 07-17-2024 Note HNO ID: [id number] Author: KAMLA KAPLAN OCCA Service: ? Author Type: Application Development Team Lead Type: Procedures Filed: 07/17/2024 16:00 Note Text: [facility] 07-17-2024 Procedure note Procedure(s): EXTERNAL FIELD TRAINING AGENT, CGM SYS Images from the original note were not included. [facility] 07-17-2024 Procedure note Procedure(s): EXTERNAL FIELD TRAINING AGENT, CGM SYS Images from the original note were not included. documented in this encounter [facility] 07-17-2024 Note HNO ID: [id number] Author: FERN JACKSON MD Service: ? Author [...] 3 Each 4 Blood-Glucose Meter,Continuous (DEXCOM G6 FIELD TRAINING AGENT) misc Use as directed to monitor blood glucose 4-6 times per day. ICD-10: E10.65 ICD-10: E11.65 (insulin dependent) 2 Each 5 Blood-Glucose Meter,Continuous (DEXCOM G7 FIELD TRAINING AGENT) misc 1 Each every 10 days. 2 Each 5 aspirin, enteric coated (ASPIRIN, ENTERIC COATED) 81 mg EC tablet Take 1 tablet by mouth once daily. ADULT MUTIVITAMIN W/ EXTRA D GUMMY Take by mouth. Blood-Glucose Meter,Continuous (DEXCOM G7 FIELD TRAINING AGENT) misc Use as directed to monitor blood glucose 4-6 times per day. ICD-10: E10.65 ICD (more content not included)... [facility] 07-17-2024 History of Present illness Narrative [...] 3 Each 4 Blood-Glucose Meter,Continuous (DEXCOM G6 FIELD TRAINING AGENT) misc Use as directed to monitor blood glucose 4-6 times per day. ICD-10: E10.65 ICD-10: E11.65 (insulin dependent) 2 Each 5 Blood-Glucose Meter,Continuous (DEXCOM G7 FIELD TRAINING AGENT) misc 1 Each every 10 days. 2 Each 5 aspirin, enteric coated (ASPIRIN, ENTERIC COATED) 81 mg EC tablet Take 1 tablet by mouth once daily. ADULT MUTIVITAMIN W/ EXTRA D GUMMY Take by mouth. Blood-Glucose Meter,Continuous (DEXCOM G7 FIELD TRAINING AGENT) misc Use as directed to monitor blood [...] 3 mg/actuation nasal spray (BAQSIMI) Use 1 [place] in the nose as needed for low [...] and left eye prothesis. Will see the cuff matcher in the near future. -Also discussed with [...] stable neuropathy. This note was created using [employer] dictation software. You may find errors that were missed during proofreading. They are purely unintentional and if there are any concerns regarding this dictation, please do not hesitate to contact the dictating provider for clarification. Discussed with Attending Staff, Addendum to follow. Fern Flowers MD Clinical Fellow Endocrinology and Metabolism [place] I spent a total of mre than 60 minutes on the date of the service which included preparing to see the patient, completing clinical documentation, obtaining and/or reviewing separately obtained history, and performing a medically appropriate examination. [facility] STAFF PHYSICIAN NOTE OF PERSONAL INVOLVEMENT IN [...] Plan of care discussed with Provider SIGNATURE: Heraclio Frances MD DATE of SERVICE: July 17, 2024 TIME of SERVICE: 3:07 PM documented in this encounter [facility] 07-17-2024 Instructions Obinna Brandt MA - 07/17/2024 2:15 PM EST Thank you for choosing the [facility] Department of Endocrinology, Diabetes and Metabolism. Did you know that you need to call 48 hours in advance of your scheduled visit, if you are unable to make your appointment? The [facility]inology [facility] Met[facility] [place] thanks you for your commitment, because patients not showing to their appointment results in a lost opportunity for patients to receive [facility] health care at the [facility]. To Cancel an appointment, please choose one of the following: - Call the Appointment Call Center at [phone] - From [employer], Go to Appointments - Cancel Appts If cancelling, consider your need to reschedule to prevent further delays in your care. To Schedule an appointment, please choose one of the following: - Call the Appointment Call Center at [phone] - From [employer], Go to Appointments - Request an Appt documented in this encounter [facility] 06-14-2024 Telephone encounter Note Received a DWO for CGM Form from [employer] for sensors and transmitter. Completed clerical portions of the form and submitted to the provider to complete, review, and sign. DWAYNE URIARTE Suture Winder Hand II Endocrinology & Metabolism [facility] X-20 [facility] 06-14-2024 Miscellaneous Notes Received a DWO for CGM Form from [employer] for sensors and transmitter. Completed clerical portions of the form and submitted to the provider to complete, review, and sign. DWAYNE URIARTE Suture Winder Hand II Endocrinology & Metabolism [facility] X-20 documented in this encounter [facility] 06-13-2024 Evaluation + Plan note Associated Problem(s): Insomnia Controlled After addressing medication(s) compliance, adverse effects, and efficacy of treatment(s), medications for this controlled chronic condition will be continued. [facility] 06-13-2024 Evaluation + Plan note Associated Problem(s): Recurrent major depressive disorder, in remission (HCC) Controlled After addressing medication(s) compliance, adverse effects, and efficacy of treatment(s), medications for this controlled chronic condition will be continued. [facility] 06-13-2024 Evaluation + Plan note Associated Problem(s): Coronary artery disease involving [place] coronary artery of [place] heart without angina pectoris Controlled After addressing medication(s) compliance, adverse effects, and efficacy of treatment(s), medications for this controlled chronic condition will be continued. Asymptomatic [facility] 06-13-2024 Miscellaneous Notes Associated Problem(s): Insomnia Controlled After addressing medication(s) compliance, adverse effects, and efficacy of treatment(s), medications for this controlled chronic condition will be continued. Associated Problem(s): Recurrent major depressive disorder, in remission (HCC) Controlled After addressing medication(s) compliance, adverse effects, and efficacy of treatment(s), medications for this controlled chronic condition will be continued. Associated Problem(s): Coronary artery disease involving [place] coronary artery of [place] heart without angina pectoris Controlled After addressing medication(s) compliance, adverse effects, and efficacy of treatment(s), medications for this controlled chronic condition will be continued. Asymptomatic Associated Problem(s): Chronic painful diabetic neuropathy (CMS/HCC) (HCC) Controlled After addressing medication(s) compliance, adverse effects, and efficacy of treatment(s), medications for this controlled chronic condition will be continued. UDS results pending Yearly LTOT paperwork and meet with [facility] at next visit documented in this encounter [facility] 06-13-2024 Evaluation + Plan note Associated Problem(s): Chronic painful diabetic neuropathy (CMS/HCC) (HCC) Controlled After addressing medication(s) compliance, adverse effects, and efficacy of treatment(s), medications for this controlled chronic condition will be continued. UDS results pending Yearly LTOT paperwork and meet with [facility] at next visit [facility] 06-13-2024 History of Present illness Narrative Images from the original note were not included. [facility] [place] - [address] [facility] [address] Dept: [phone] Dept Loc: [phone] Patient was seen today via Telehealth by [...] that they are currently in the state [facility]. If the patient is a minor, permission [...] Normal 2. Chronic painful diabetic neuropathy (CMS/HCC) ([facility]) Assessment & Plan: Controlled After addressing medication(s) compliance, adverse effects, and efficacy of treatment(s), medications for this controlled chronic condition will be continued. UDS results pending Yearly LTOT paperwork and meet with [facility] at next visit Orders: - gabapentin (Neurontin) [...] 3. Recurrent major depressive disorder, in remission ([facility]) Assessment & Plan: Controlled After [...] Mon06/08/2025, Normal 4. Coronary artery disease involving [place] coronary artery of [place] heart without angina pectoris Assessment & Plan: [...] Monitoring: No data to display OARRs Reviewed. [facility] [employer] PAIN MANAGEMENT DRUG PANEL Date Value Ref [...] Judgment: Judgment normal. documented in this encounter [facility] 06-03-2024 Note EMR reviewed PMHX: Asthma, CAD, HTN, DM CM made patient outreach. Patient answered. CM introduced self and [facility] program. Patient noted that she was doing [...] this time. Future appointments: 06/13 Family medicine [facility] 05-23-2024 Telephone encounter Note Chart reviewed for compliance with [facility] refill guidelines. Screening criteria met. Last appointment 03/27/2024. Next appointment 06/13/2024. Last labs n/a . Please review and send prescription as appropriate. If no future appointment noted, the last office visit notes were reviewed to determine follow-up time frame and this note forwarded to front end developer designer to schedule. [facility] 05-23-2024 Miscellaneous Notes Chart reviewed for [...] designer to schedule. documented in this encounter [facility] 05-20-2024 Telephone encounter Note Requester: Patient [...] Prescriptions Disp Refills Blood-Glucose Meter,Continuous (DEXCOM G6 FIELD TRAINING AGENT) misc 2 Each 5 Sig: Use as directed to monitor blood glucose 4-6 times per day. ICD-10: E10.65 ICD-10: E11.65 (insulin dependent) Authorizing Provider: FERN JACKSON Blood-Glucose Meter,Continuous (DEXCOM G7 FIELD TRAINING AGENT) misc 2 Each 5 Si Each every 10 days. Authorizing Provider: FERN JACKSON If patient is due for an appointment please route to provider for refill consideration and also to the endo scheduling pool. PSS NOTE: Patient needs scheduled appointment No [facility] 05-20-2024 Miscellaneous Notes Requester: Patient Patients last [...] Prescriptions Disp Refills Blood-Glucose Meter,Continuous (DEXCOM G6 FIELD TRAINING AGENT) misc 2 Each 5 Sig: Use as directed to monitor blood glucose 4-6 times per day. ICD-10: E10.65 ICD-10: E11.65 (insulin dependent) Authorizing Provider: FERN JACKSON Blood-Glucose Meter,Continuous (DEXCOM G7 FIELD TRAINING AGENT) misc 2 Each 5 Si Each every 10 days. Authorizing Provider: FERN JACKSON If patient is due for an appointment please route to provider for refill consideration and also to the endo scheduling pool. PSS NOTE: Patient needs scheduled appointment No documented in this encounter [facility] 04-25-2024 Telephone encounter Note Received a prescription form from [employer] for patient's Omnipod 5 PODS. Completed clerical portion of the form and submitted to the provider to sign. DWAYNE URIARTE Suture Winder Hand II Endocrinology & Metabolism [place] [facility] X-20 [facility] 04-25-2024 Miscellaneous Notes Received a prescription form from [facility] for patient's Omnipod 5 PODS. Completed clerical portion of the form and submitted to the provider to sign. DWAYNE URIARTE Suture Winder Hand II Endocrinology & Metabolism [place] [facility] X-20 documented in this encounter [facility] 04-24-2024 Note HNO ID: [id number] Author: LOC HDEZ MD Service: ? Author Type: Physician Type: Progress Notes Filed: 04/24/2024 16:12 Note Text[facility] Date: April 24, 2024 - 2:18 PM Jael Benson is self referred. Chief Complaint: neuropathy SUBJECTIVE: Jale Benson, is a 58 year old female [...] mouth once daily. Blood-Glucose Meter,Continuous (DEXCOM G7 FIELD TRAINING AGENT) misc 1 Each. ADULT MUTIVITAMIN W/ EXTRA D GUMMY Take by mouth. Blood-Glucose Meter,Continuous (DEXCOM G6 FIELD TRAINING AGENT) misc Use as directed to monitor blood glucose 4-6 times per day. ICD-10: E10.65 ICD-10: E11.65 (insulin dependent) Blood-Glucose Meter,Continuous (DEXCOM G7 FIELD TRAINING AGENT) misc Use as directed to monitor blood [...] 3 mg/actuation nasal spray (BAQSIMI) Use 1 [place] in the nose as needed for low [...] 11/10/2022: HTN (hypertensi (more content not included)... [facility] 04-24-2024 History of Present illness [facility]ative [facility] Date: April 24, 2024 [...] mouth once daily. Blood-Glucose Meter,Continuous (DEXCOM G7 FIELD TRAINING AGENT) misc 1 Each. ADULT MUTIVITAMIN W/ EXTRA D GUMMY Take by mouth. Blood-Glucose Meter,Continuous (DEXCOM G6 FIELD TRAINING AGENT) misc Use as directed to monitor blood glucose 4-6 times per day. ICD-10: E10.65 ICD-10: E11.65 (insulin dependent) Blood-Glucose Meter,Continuous (DEXCOM G7 FIELD TRAINING AGENT) misc Use as directed to monitor blood [...] 3 mg/actuation nasal spray (BAQSIMI) Use 1 [place] in the nose as needed for low [...] Panel: No results found for: UQCANN, UQBNZL, XIJ6HWH, UQAMPH, UQMAMP, UQBUPRE, UQNORBUP, UQMTHD, UQEDDP, UQTRAM, [...] diagnostic tests reviewed for today's visit: The [facility] EMR was reviewed during the visit [...] but also diagnostic information that procedures provide. [facility] use of any opioid pain medication is [...] record for those providers who practice within [facility] or with access to [employer] via MD Connect, or via letter. documented in this encounter [facility] 04-23-2024 Telephone encounter Note Chart reviewed for compliance with [facility] refill guidelines. Screening criteria met. Last appointment 03/27/24. Next appointment 06/13/24. Last labs . Please review and send prescription as appropriate. If no future appointment noted, the last office visit notes were reviewed to determine follow-up time frame and this note forwarded to front end developer designer to schedule. [facility] 04-23-2024 Miscellaneous Notes Chart reviewed for compliance with [facility] refill guidelines. Screening criteria met. Last appointment 03/27/24. Next appointment 06/13/24. Last labs . Please review and send prescription as appropriate. If no future appointment noted, the last office visit notes were reviewed to determine follow-up time frame and this note forwarded to front end developer designer to schedule. documented in this encounter [facility] 04-05-2024 Telephone encounter Note Insulin Pump [...] scheduled: none Follow-up with provider scheduled: 06/12/2024 [facility] Work Phone: 04-05-2024 Miscellaneous Notes Insulin Pump [...] provider scheduled: 06/12/2024 documented in this encounter [facility] 04-02-2024 Note HNO ID: [id number] Author: JAEL CIFUENTES RN Service: ? Author Type: Registered Nurse Type: Progress Notes Filed: 04/02/2024 15:20 Note Text: Type of visit: In person individual Patient started today on Omnipod 5 insulin pump. Type of training:upgrade If upgrade, patient was previously on the following pump:t:slim Pump programming done today by: patient with educator supervision Insulin information: Patient did not have the account linked to [employer] and did not bring their login information [...] needed This is a non-billable encounter through [employer] but will be billed to the following pump company: [employer]. This visit note will be communicated to the healthcare provider via access to shared medical record. I spent 75 minutes with this patient today. Jael Cifuentes RN [facility] 04-02-2024 History of Present illness Narrative Type of visit: In person individual Patient started today on Omnipod 5 insulin pump. Type of training:upgrade If upgrade, patient was previously on the following pump:t:slim Pump programming done today by: patient with educator supervision Insulin information: Patient did not have the account linked to [employer] and did not bring their login information [...] needed This is a non-billable encounter through [employer] but will be billed to the following pump company: [employer]. This visit note will be communicated to the healthcare provider via access to shared medical record. I spent 75 minutes with this patient today. Jael Cifuentes RN documented in this encounter [facility] 03-27-2024 Evaluation + Plan note Associated Problem(s): Insomnia Chronic, uncontrolled Discussed with PharmD Will Rx Elavil and titrate q2 weeks - patient will send message via [employer] Counseled regarding when to take medication (I.e. does not work right away) Given dual effect of treating neuropathic pain, consider weaning off/lower dose of gabapentin in future after patient been on stable dose of TCA [facility] 03-27-2024 Miscellaneous Notes Associated Problem(s): Insomnia Chronic, uncontrolled Discussed with PharmD Will Rx Elavil and titrate q2 weeks - patient will send message via [employer] Counseled regarding when to take medication (I.e. does not work right away) Given dual effect of treating neuropathic pain, consider weaning off/lower dose of gabapentin in future after patient been on stable dose of TCA documented in this encounter [facility] 03-27-2024 History of Present illness Narrative Images from the original note were not included. [facility] [address] [facility] [address] Dept: [phone] Dept Loc: [phone] Patient was seen today via Telehealth by [...] stated that they are currently in the [facility]. If the patient is a minor, permission has been obtained by the parent or guardian for the patient to receive medical care at this visit. Assessment/Plan 1. Psychophysiological insomnia Assessment & Plan: Chronic, uncontrolled Discussed with PharmD Will Rx Elavil and titrate q2 weeks - patient will send message via [employer] Counseled regarding when to take medication (I.e. [...] or [facility] provider; she will check-in via [employer] q 2 weeks. Niecy Addison, 03/27/24 11:00 [...] Judgment: Judgment normal. documented in this encounter [facility] 03-27-2024 Instructions Niecy Addison DO - [...] Services, [place], 2007. documented in this encounter [facility] 03-25-2024 Telephone encounter Note Patient scheduled for 04/02/24 [facility] 03-25-2024 Miscellaneous Notes Patient scheduled for 04/02/24 1st attempt: Tried calling patient, but number is blocked and call could not go through. I sent patient a [facility] message to call and schedule an appointment. [...] gets reassigned. Thanks! documented in this encounter [facility] 03-22-2024 Telephone encounter Note 1st attempt: Tried calling patient, but number is blocked and call could not go through. I sent patient a [facility] message to call and schedule an appointment. I will postpone this and follow up on it. [facility] 03-22-2024 Telephone encounter Note Karl Magana, This [...] would prefer this training gets reassigned. Thanks! [facility] 03-21-2024 Evaluation + Plan note Associated Problem(s): Pain in both hands Uncontrolled and with history of failed bilateral CTS surgery Continue OTC Voltaren gel BID Can add OTC Lidoderm/lidocaine patches or gel Unable to fully assess given video visit [facility] 03-21-2024 Miscellaneous Notes Associated Problem(s): Pain [...] ordered from 11/2023 documented in this encounter [facility] 03-21-2024 Evaluation + Plan note Associated Problem(s): Chronic painful diabetic neuropathy (CMS/HCC) (HCC) Controlled After addressing medication(s) compliance, adverse effects, and efficacy of treatment(s), medications for this controlled chronic condition will be continued. Reminded patient to get UDS ordered from 11/2023 [facility] 03-21-2024 History of Present illness Narrative [...] Never done Depression Monitoring 03/21/2024 (end precharting)- [facility] [address] [facility] [address] Dept: [phone] Dept Loc: [phone] Patient was seen today via Telehealth by [...] stated that they are currently in the [facility]. If the patient is a minor, permission has been obtained by the parent or guardian for the patient to receive medical care at this visit. Assessment/Plan 1. Chronic painful diabetic neuropathy (CMS/HCC) ([facility]) Assessment & Plan: Controlled After [...] Monitoring: No data to display OARRs Reviewed. [facility] Doc[employer]oc PAIN MANAGEMENT DRUG PANEL Date Value Ref [...] Judgment: Judgment normal. documented in this encounter [facility] 03-21-2024 Instructions Niecy Addison DO - 03/21/2024 10:50 AM EDT Lidocaine gel or patch Lidoderm documented in this encounter [facility] 03-12-2024 Telephone encounter Note [facility] pharmacy calling to request verbal RX for the intro kit for Omni pod 5 and the pods. They state have sent several faxes but they are not transmitting to us. Please call [facility] at [phone] [facility] 03-12-2024 Miscellaneous Notes [facility] pharmacy calling to request verbal RX for the intro kit for Omni pod 5 and the pods. They state have sent several faxes but they are not transmitting to us. Please call [facility] at [phone] documented in this encounter [facility] 01-08-2024 Telephone encounter Note Chart reviewed for compliance with [facility] refill guidelines. Screening criteria met. Last appointment [...] review and send prescription as appropriate. T [facility] 01-08-2024 Miscellaneous Notes Chart reviewed for compliance with [facility] refill guidelines. Screening criteria met. Last appointment [...] prescription as appropriate. documented in this encounter [facility] 12-21-2023 Evaluation + Plan note Associated Problem(s): Menopausal syndrome on hormone replacement therapy Failed Veozah Back on HRT Discussed to cut medication in half to decrease to lowest effective dose - she will either cut her Estrace and Provera in half and take every day or take a full pill every other day [facility] 12-21-2023 Miscellaneous Notes Associated Problem(s): Menopausal [...] next few weeks documented in this encounter [facility] 12-21-2023 Miscellaneous Notes Associated Problem(s): Menopausal [...] Modules accepted: Orders documented in this encounter [facility] 12-21-2023 Evaluation + Plan note Associated Problem(s): Chronic painful diabetic neuropathy (CMS/HCC) (HCC) Controlled After addressing medication(s) compliance, adverse effects, and efficacy of treatment(s), medications for this controlled chronic condition will be continued. UDS in the next few weeks [facility] 12-21-2023 History of Present illness Narrative Images from the original note were not included. [facility] [address] [facility] [address] [facility] [address] Dept: [phone] Dept Loc: [phone] Patient was seen today via Telehealth by [...] that they are currently in the [place] [facility]. If the patient is a minor, permission [...] Monitoring: No data to display OARRs Reviewed. [employer] PAIN MANAGEMENT DRUG PANEL Date Value Ref [...] Judgment: Judgment normal. documented in this encounter [facility] 12-21-2023 History of Present illness Narrative Images from the original note were not included. [facility] [address] [facility] [address] Dept: [phone] Dept Loc: [phone] Patient was seen today via Telehealth by [...] stated that they are currently in the [facility]. If the patient is a minor, permission has been obtained by the parent or guardian for the patient to receive medical care at this visit. Assessment/Plan 1. Chronic painful diabetic neuropathy (CMS/HCC) ([facility]) Assessment & Plan: Controlled After [...] for Telehealth, with PCP or Pod provider. Neicy Addison DO 12/21/23 11:33 AM Subjective Jael [...] Monitoring: No data to display OARRs Reviewed. [facility] PAIN MANAGEMENT DRUG PANEL Date Value [...] Judgment: Judgment normal. documented in this encounter [facility] 12-21-2023 Instructions Niecy Addison DO - 12/21/2023 11:10 AM EDT Please call [phone] to schedule an appointment for your mammogram. documented in this encounter [facility] 12-21-2023 Instructions Niecy Addison DO - 12/21/2023 11:10 AM EDT Please call [phone] to schedule an appointment for your mammogram. documented in this encounter [facility] 12-21-2023 Note Addended by: RACHEL LICEA on: 06/11/2024 03:29 PM Modules accepted: Orders [facility] 12-08-2023 Miscellaneous Notes Addended by: FERN JACKSON on: 12/08/2023 01:55 PM Modules accepted: Orders documented in this encounter [facility] 12-08-2023 Note HNO ID: [id number] Author: LISA SHELBY MD Service: ? Author [...] mouth once daily. Blood-Glucose Meter,Continuous (DEXCOM G7 FIELD TRAINING AGENT) misc 1 Each. ADULT MUTIVITAMIN W/ EXTRA [...] Vial 3 Multivita (more content not included)... [facility] 12-08-2023 History of Present illness Narrative [...] mouth once daily. Blood-Glucose Meter,Continuous (DEXCOM G7 FIELD TRAINING AGENT) misc 1 Each. ADULT MUTIVITAMIN W/ EXTRA [...] to podiatry. This note was created using [employer] dictation software. You may find errors that were missed during proofreading. They are purely unintentional and if there are any concerns regarding this dictation, please do not hesitate to contact the dictating provider for clarification. Discussed with Attending Staff, Addendum to follow. Fern Flowers MD Clinical Fellow Endocrinology [facility] Metabolism [place] Attending Note: Chowdhury findings confirmed. Patient examined. Discussed with the fellow and the patient. Plan as outlined. Lisa Cantrell MD documented in this encounter [facility] 12-08-2023 Instructions Kori Sweeney - 12/08/2023 9:52 AM EDT Thank you for choosing the [facility] Department of Endocrinology, Diabetes and Metabolism. Did you know that you need to call 48 hours in advance of your scheduled visit, if you are unable to make your appointment? The [facility] [place] thanks you for your commitment, because patients not showing to their appointment results in a lost opportunity for patients to receive [facility] health care at the [facility]. To Cancel an appointment, please choose one of the following: - Call the Appointment Call Center at [phone] - From [facility], Go to Appointments - Cancel Appts If cancelling, consider your need to reschedule to prevent further delays in your care. To Schedule an appointment, please choose one of the following: - Call the Appointment Call Center at [phone] - From [facility], Go to Appointments - Request an Appt documented in this encounter [facility] 10-25-2023 History of Present illness Narrative BEHAVIORAL [...] stated that they are currently in the [facility]. If the patient is a minor, permission [...] grounding and reframing documented in this encounter [facility] 10-18-2023 History of Present illness Narrative BEHAVIORAL HEALTH ASSESSMENT Jael Benson 10/18/23 PCP: Niecy Addison DO Pt Preferred Phone #: [phone] Jael is a 58 y.o. female who [...] they are currently in the state of [place]. If the patient is a minor, permission has been obtained by the parent or guardian for the patient to receive medical care at this visit. If pt is under 18, verbal consent obtained by [facility] through pt's parent named Not applicable. In case of emergency, the following information was collected from the patient: Emergency contact name: Jael Benson Emergency contact number: [phone] Patient's current address: [address] [place] [address] Department for address: [place] Patient Consent : [facility] discussed role and services including limits to [...] (HCC) Neurogenic bladder Coronary artery disease involving [place] coronary artery of [place] heart without angina pectoris Essential hypertension History [...] that her mother was over the top rastafarian while she sees herself as a spiritual [...] Bi-weekly TeleHealth counseling documented in this encounter [facility] 10-09-2023 Telephone encounter Note [facility] contacted pt re: message to Dr. Addison about concerns of anxiety sxs and impact on functioning. Pt agreed to meet virtually with [facility] to discuss coping strategies before exploring medication to manage severity. Scheduled for intake on 2023 at 3 pm. [facility] 10-09-2023 Miscellaneous Notes [facility] contacted pt re: message to Dr. Addison about concerns of anxiety sxs and impact on functioning. Pt agreed to meet virtually with [facility] to discuss coping strategies before exploring medication to manage severity. Scheduled for intake on 2023 at 3 pm. documented in this encounter [facility] 09-21-2023 Evaluation + Plan note Associated Problem(s): Menopausal syndrome on hormone replacement therapy Controlled After addressing medication(s) compliance, adverse effects, and efficacy of treatment(s), medications for this controlled chronic condition will be continued. LFTs today, at 3 months, 6 and then 9 months after starting (has been <1 month) [facility] 09-21-2023 Evaluation + Plan note Associated Problem(s): Pain in both hands Exam consistent with OA Patient will use topical Voltaren gel - has some at home Use heat PRN [facility] 09-21-2023 Evaluation + Plan note Associated Problem(s): Chronic painful diabetic neuropathy (CMS/HCC) (HCC) Controlled After addressing medication(s) compliance, adverse effects, and efficacy of treatment(s), medications for this controlled chronic condition will be continued. UDS obtained today Annual LTOT paperwork filled out [facility] 09-21-2023 Miscellaneous Notes Associated Problem(s): Menopausal [...] paperwork filled out documented in this encounter [facility] 09-21-2023 Miscellaneous Notes Associated Problem(s): Menopausal [...] screen is concordant documented in this encounter [facility] 09-21-2023 History of Present illness Narrative [...] Never done Lipid Panel 06/11/2021 (end precharting)- [facility] [address] [facility] [address] Dept: [phone] Dept Loc: [phone] Assessment/Plan 1. Chronic painful diabetic neuropathy (CMS/HCC) [...] Monitoring: No data to display OARRs Reviewed. [facility] PAIN MANAGEMENT DRUG PANEL Date Value Ref Range Status 03/16/2022 NEGATIVE NA Final No results found for: TRAMADOLUR [facility] pain management panel concordant: Yes fentanyl Rationale [...] - mild; +heberden/aung's nodes bilaterally - minimal; wind turbine service technician strength 5/5 Lymphadenopathy: Cervical: No cervical adenopathy. [...] was not notified of possible fall risk. Personal Financial Advisor: not offered PHQ2: negative Suicidal ideation: absent Food insecurity screening: negative Grade Recorder used: no documented in this encounter [facility] 09-21-2023 History of Present illness Narrative [...] Never done Lipid Panel 06/11/2021 (end precharting)- [facility] [address] [facility] [address] Dept: [phone] Dept Loc: [phone] Assessment/Plan 1. Chronic painful diabetic neuropathy (CMS/HCC) [...] Monitoring: No data to display OARRs Reviewed. [employer] PAIN MANAGEMENT DRUG PANEL Date Value Ref [...] - mild; +heberden/aung's nodes bilaterally - minimal; wind turbine service technician strength 5/5 Lymphadenopathy: Cervical: No cervical adenopathy. [...] was not notified of possible fall risk. Personal Financial Advisor: not offered PHQ2: negative Suicidal ideation: absent Food insecurity screening: negative Grade Recorder used: no documented in this encounter [facility] 09-21-2023 Instructions Niecy Addison DO - 09/21/2023 9:10 AM EST Please call [phone] to schedule an appointment for your mammogram. documented in this encounter [facility] 09-21-2023 Instructions Niecy Addison DO - 09/21/2023 9:10 AM EST Please call [phone] to schedule an appointment for your mammogram. documented in this encounter [facility] 09-21-2023 Progress note Formatting of t his note might be different from the original. Urine drug screen is concordant [facility] 07-18-2023 Telephone encounter Note Spoke with patient re: Leonel Patient has not gotten medication through [facility] nor has she gotten any letter in the mail stating it was approved Discussed she call [facility] to get it shipped to her (or [...] agreeable to above - all questions answered [facility] 07-18-2023 Miscellaneous Notes Spoke with patient [...] all questions answered documented in this encounter [facility] 07-13-2023 Telephone encounter Note Script printed. [facility] message to patient. [facility] 07-13-2023 Miscellaneous Notes Script printed. [facility] message to patient. Name of caller: Jael Contact phone number: [phone] Relationship to Patient: Spouse Provider: covering Practice: [facility] Chief Complaint/Reason for Call: Caller is wanting to see what else can be done to receive hard copy of script for fentaNYL (Duragesic) 62.5 MCG/HR As from message in [place] the pt is leaving 07/18/2023 and would like to get this script picked up from the office before needing to leave state please advise Best time of day caller can be reached: any Patient advised that office/PCP has 24-48 business hours to return their call: No documented in this encounter [facility] 07-13-2023 Telephone encounter Note Name of caller: Jael Contact phone number: [phone] Relationship to Patient: Spouse Provider: covering Practice: [facility] Chief Complaint/Reason for Call: Caller is wanting to see what else can be done to receive hard copy of script for fentaNYL (Duragesic) 62.5 MCG/HR As from message in [place] the pt is leaving 07/18/2023 and would like to get this script picked up from the office before needing to leave state please advise Best time of day caller can be reached: any Patient advised that office/PCP has 24-48 business hours to return their call: No [facility] [employer] 06-28-2023 History of Present illness Narrative Subjective [...] F/u 4-6 months documented in this encounter [facility] Work Phone: 06-22-2023 Evaluation + Plan note Associated Problem(s): Recurrent major depressive disorder, in remission (HCC) Controlled After addressing medication(s) compliance, adverse effects, and efficacy of treatment(s), medications for this controlled chronic condition will be continued. [facility] [employer] 06-22-2023 Evaluation + Plan note Associated Problem(s): Menopausal syndrome on hormone replacement therapy Controlled After addressing medication(s) compliance, adverse effects, and efficacy of treatment(s), medications for this controlled chronic condition will be continued. Discussed expense of any new drug on market She will talk with her and investigate cost Would be candidate since already on gabapentin and venlafaxine and hot flashes still uncontrolled [facility] [employer] 06-22-2023 Miscellaneous Notes Associated Problem(s): Recurrent major [...] uncontrolled Associated Problem(s): Coronary artery disease involving [place] coronary artery of [place] heart without angina pectoris Controlled After addressing medication(s) compliance, adverse effects, and efficacy of treatment(s), medications for this controlled chronic condition will be continued. Associated Problem(s): Chronic painful diabetic neuropathy (CMS/HCC) (HCC) Controlled After addressing medication(s) compliance, adverse effects, and efficacy of treatment(s), medications for this controlled chronic condition will be continued. documented in this encounter [facility] 06-22-2023 Evaluation + Plan note Associated Problem(s): Coronary artery disease involving [place] coronary artery of [place] heart without angina pectoris Controlled After addressing medication(s) compliance, adverse effects, and efficacy of treatment(s), medications for this controlled chronic condition will be continued. [facility] 06-22-2023 Evaluation + Plan note Associated Problem(s): Chronic painful diabetic neuropathy (CMS/HCC) (HCC) Controlled After addressing medication(s) compliance, adverse effects, and efficacy of treatment(s), medications for this controlled chronic condition will be continued. [facility] 06-22-2023 History of Present illness Narrative [...] 10/14/2021 Influenza Vaccine (1) 04/28/2023 (end precharting)- [facility] [address] [facility] [address] Dept: [phone] Dept Loc: [phone] Subjective Patient was seen today via Telehealth [...] that they are currently in the state [facility]. If the patient is a minor, permission has been obtained by the parent or guardian for the patient to receive medical care at this visit. Jael Benson is a 58 y.o. who presents for a telehealth visit. Assessment/Plan 1. Chronic painful diabetic neuropathy (CMS/HCC) ([facility]) Assessment & Plan: Controlled After [...] Mon06/16/2024, Normal 3. Coronary artery disease involving [place] coronary artery of [place] heart without angina pectoris Assessment & Plan: [...] last refill at end of April in [place] since out-of-town (mother ) Follow up of: [...] Monitoring: No flowsheet data found. OARRs Reviewed. [employer] PAIN MANAGEMENT DRUG PANEL Date Value Ref [...] Judgment: Judgment normal. documented in this encounter [facility] [employer] 04-12-2023 History of Present illness Narrative . HX OF FREQUENT UTIS AND BLADDER INFECTIONS. SHE RECENTLYCOMPLETED ANTIBX. SHE HAS A NGB FROM [facility] AND HAS TO DO [facility]. HAS OCCASIONAL FREQUENCY AND URGENCY IN THE MORNING. . DENIES HEMATURIA. NOCTURIA X 0. [id number] Work Phone: 04-04-2023 Telephone encounter Note Medication(s) refilled: Requested Prescriptions Signed Prescriptions Disp Refills gabapentin (Neurontin) 400 MG capsule 180 capsule 0 Sig: Take 1 capsule (400 mg) by mouth 2 times daily. Authorizing Provider: NIECY ADDISON DO 04/04/2023 11:04 AM [facility] 04-04-2023 Miscellaneous Notes Medication(s) refilled: Requested [...] the medication: Yes documented in this encounter [facility] [employer] 04-04-2023 Telephone encounter Note Medication name: gabapentin [...] prior to picking up the medication: Yes [facility] [employer] 03-31-2023 Telephone encounter Note Gabapentin sent yesterday - see TE Medication(s) refilled: Requested Prescriptions Signed Prescriptions Disp Refills losartan (Cozaar) 50 MG tablet 90 tablet 1 Sig: Take 1 tablet (50 mg) by mouth daily. Authorizing Provider: NIECY ADDISON DO 03/31/2023 9:41 AM [facility] 03-31-2023 Miscellaneous Notes Gabapentin sent yesterday [...] 03/30/2023 (O) Report Adh: Taking: Long-term: Pharmacy: [facility]/pharmacy #[id number] - [place], [place] - [address] [facility] [address] Med Dose History Change Patient Sig: Take [...] 11/08/2022 (O) Report Adh: Taking: Long-term: Pharmacy: [facility]/pharmacy #[id number] - [place], [facility] [address] [facility] [address] [facility] Dose History Change Patient Sig: Take 1 tablet (50 mg) by mouth daily. Ordered on: 11/08/2022 Authorized by: NIECY ADDISON Dispense: 90 tablet Prior Authorization: Request PA Requesting a 90 day supply be sent to mail in pharmacy. Please Advise. documented in this encounter [facility] 03-31-2023 Telephone encounter Note Images from [...] 03/30/2023 (O) Report Adh: Taking: Long-term: Pharmacy: [facility]/pharmacy #[id number] - [place], [facility] [address] [facility] Dose History Change Patient Sig: Take 1 [...] 11/08/2022 (O) Report Adh: Taking: Long-term: Pharmacy: [facility]/pharmacy #[id number] - [place], [place] - [address] [facility] [address] Med Dose History Change Patient Sig: Take 1 tablet (50 mg) by mouth daily. Ordered on: 11/08/2022 Authorized by: NIECY ADDISON Dispense: 90 tablet Prior Authorization: Request PA Requesting a 90 day supply be sent to mail in pharmacy. Please Advise. [facility] 03-30-2023 Telephone encounter Note Medication(s) refilled: Requested Prescriptions Signed Prescriptions Disp Refills gabapentin (Neurontin) 400 MG capsule 14 capsule 0 Sig: Take 1 capsule (400 mg) by mouth 2 times daily for 7 days. Authorizing Provider: NIECY ADDISON DO 03/30/2023 9:14 AM [facility] 03-30-2023 Miscellaneous Notes Medication(s) refilled: Requested Prescriptions [...] the medication: Yes documented in this encounter [facility] 03-30-2023 Telephone encounter Note Medication name: [...] prior to picking up the medication: Yes [facility] 03-10-2023 Evaluation + Plan note Associated Problem(s): Chronic painful diabetic neuropathy (CMS/HCC) (HCC) Controlled After addressing medication(s) compliance, adverse effects, and efficacy of treatment(s), medications for this controlled chronic condition will be continued. [facility] 03-10-2023 Miscellaneous Notes Associated Problem(s): Chronic painful diabetic neuropathy (CMS/HCC) (HCC) Controlled After addressing medication(s) compliance, adverse effects, and efficacy of treatment(s), medications for this controlled chronic condition will be continued. documented in this encounter [facility] 03-10-2023 History of Present illness Narrative Images from the original note were not included. [facility] [address] [facility] [address] Dept: [phone] Dept Loc: [phone] Subjective Patient was seen today via Telehealth [...] stated that they are currently in the [facility]. If the patient is a minor, permission [...] Monitoring: No flowsheet data found. OARRs Reviewed. [facility] PAIN MANAGEMENT DRUG PANEL Date Value [...] Assessment/Plan 1. Chronic painful diabetic neuropathy (CMS/HCC) ([facility]) Assessment & Plan: Controlled After [...] for Telehealth, with PCP or Pod provider. Nicey Addison DO 03/10/23 3:17 PM documented in this encounter [facility] 02-10-2023 Telephone encounter Note LTOT VV APPT ON 03/09/23 11:10 AM [facility] 02-10-2023 Miscellaneous Notes LTOT VV APPT ON 03/09/23 11:10 AM Name of caller: Jael Contact phone number: [phone] Relationship to Patient: Pt Provider: Azael Practice: [facility] Chief Complaint/Reason for Call: Pt called in stating she isn't sure when her next LTOT appt should be. Pt would like advised and scheduled accordingly. Please advise. Best time of day caller can be reached: Any Patient advised that office/PCP has 24-48 business hours to return their call: No documented in this encounter [facility] 02-10-2023 Telephone encounter Note Name of caller: Jael Contact phone number: [phone] Relationship to Patient: Pt Provider: Azael Practice: [facility] Chief Complaint/Reason for Call: Pt called in stating she isn't sure when her next LTOT appt should be. Pt would like advised and scheduled accordingly. Please advise. Best time of day caller can be reached: Any Patient advised that office/PCP has 24-48 business hours to return their call: No [facility] 12-14-2022 History of Present illness Narrative Last does of pain medication 12/11/2022 at 8:30pm Images from the original note were not included. [facility] Location: [facility] Long-Term Opiate Therapy Patient Encounter [...] -reviewed OP notes from Gavin Cruz at [facility]- he attempted [id number], reviewed with [facility] that [facility] has FDA approval for diabetic [...] Surrogate: Spouse Spiritual assessment: No Unmet Needs [place] Controlled Substances Monitoring: No flowsheet data found. [...] (HCC) 05/11/2017 Chronic painful diabetic neuropathy (CMS/HCC) ([facility]) 05/11/2017 Diabetic polyneuropathy associated with type 1 diabetes mellitus (HCC) 05/11/2017 Dx at age 31 History of depression 05/11/2017 History of suicide attempt 05/11/2017 As 17 yo Insomnia 05/11/2017 Uncertain etiology at this time Retinal detachment 05/11/2017 Retinopathy due to secondary DM ([facility]) 05/11/2017 Slow transit constipation 05/11/2017 [...] Onset Mental illness Mother COPD Father Other ([id number]) Mother Asthma Father Cancer Paternal Grandmother unknown [...] hyper Other reaction(s): Intolerance, Other Social history: [place] status: no Marital status: Living status:with spouse [...] range of affect documented in this encounter [facility] 12-14-2022 History of Present illness Narrative Last does of pain medication 12/11/2022 at 8:30pm Images from the original note were not included. [facility] Palliative Care Location: [facility] Long-Term Opiate Therapy Patient Encounter [...] -reviewed OP notes from Gavin Cruz at [facility]- he attempted [id number], reviewed with [facility] that SCS has FDA approval for diabetic [...] Surrogate: Spouse Spiritual assessment: No Unmet Needs Jew Controlled Substances Monitoring: No flowsheet data found. [...] (HCC) 05/11/2017 Chronic painful diabetic neuropathy (CMS/HCC) ([facility]) 05/11/2017 Diabetic polyneuropathy associated with [...] Onset Mental illness Mother COPD Father Other ([id number]) Mother Asthma Father Cancer Paternal Grandmother unknown [...] hyper Other reaction(s): Intolerance, Other Social history: [place] status: no Marital status: Living status:with spouse [...] range of affect documented in this encounter [facility] 12-14-2022 Miscellaneous Notes Urine drug screen is concordant documented in this encounter [facility] 12-14-2022 Progress note Formatting of t his note might be different from the original. Urine drug screen is concordant [facility] 12-13-2022 Telephone encounter Note Called and spoke with pharmacist from [facility] in [place], the pharmacist verbalized that she will send a prior authorization to the patients provider to fill out. [facility] 12-13-2022 Miscellaneous Notes Called and spoke with pharmacist from [facility] in [place], the pharmacist verbalized that she will send a prior authorization to the patients provider to fill out. I have not gotten any paperwork for a PA nor did I fill out one in the last month. Please call pharmacy and/or obtain in faxes if there Name of caller: Jael Contact phone number: [phone] Relationship to Patient: spouse/SO Provider: Dr. Addison Practice: [facility] Chief Complaint/Reason for Call: Prior Auth is not being filled out correctly for the fentaNYL (Duragesic) 62.5 MCG/HR express will be sending over another PA today. Please call the when it is done. Thank you Best time of day caller can be reached: Patient advised that office/PCP has 24-48 business hours to return their call: any documented in this encounter [facility] 12-13-2022 Telephone encounter Note I have not gotten any paperwork for a PA nor did I fill out one in the last month. Please call pharmacy and/or obtain in faxes if there [facility] 12-12-2022 Telephone encounter Note Name of caller: Jael Contact phone number: [phone] Relationship to Patient: spouse/SO Provider: Dr. Addison Practice: [facility] Chief Complaint/Reason for Call: Prior Auth is not being filled out correctly for the fentaNYL (Duragesic) 62.5 MCG/HR express will be sending over another PA today. Please call the when it is done. Thank you Best time of day caller can be reached: Patient advised that office/PCP has 24-48 business hours to return their call: any [facility] 11-15-2022 Miscellaneous Notes Called pt, notified her that her insurance denied her SCS trial. We will postpone the procedure. She would like us to appeal on her behalf. Gavin Cruz PA-C documented in this encounter [facility] 11-15-2022 Miscellaneous Notes Irln-vg-[id number] call completed with [facility] regarding denial for SCS trial. He is aware that there is FDA approval for SCS for treatment of diabetic neuropathy. He states their policy still considers it investigational and lacking evidence. He did not overturn the denial. He provided fax number [phone] for an appeal. He recommended that we provide a summary of our impression of the effectiveness of this treatment in our practice and how our patients are doing with it. He understands that we are not conducting a study. Gavin Cruz PA-C documented in this encounter [facility] 11-14-2022 Miscellaneous Notes Call to Jael with no answer. Detailed message left explaining need for repeat CBC due to elevated WBC. Call back number provided. Alban Batres PA-C documented in this encounter [facility] 11-10-2022 Miscellaneous Notes Call to patient to inform her that her blood sugar was low on her blood test this morning. Called to make sure patient had something to eat since the blood test. Pt states she has eaten and thanks RN for the call. Bailey Felix BSN, RN, CMSRN PACC Resource nurse documented in this encounter [facility] 11-10-2022 History of Present illness Narrative Chief [...] with more than 50% of the total [id number] time of the visit in counseling / coordination of care. SIGNATURE: Sharan Mendoza MD DATE of SERVICE: November 10, 2022 documented in this encounter [facility] 11-10-2022 History and physical note Images from [...] 12/28/2012 at 1002. ID # [id number] optum [id number] ALLERGIES Allergen Reactions Levofloxacin Other: See Comments insomnia Antihistamines Intolerance (benadryl) Make her hyper Metoclopramide Intolerance reglan Nitrofuran Analogues Intolerance macrobid Phenothiazines Intolerance compazine COVID VACCINATION STATUS: Fully vaccinated REVIEW OF SYSTEMS: PAIN ASSESSMENT: General: No weight loss, malaise or fevers. Neuro: No history of TIA's, stroke, PROCESS SPECIALIST tumor, impaired sensorium, hemiplegia, paraplegia or quadraplegia. No neurological symptoms or problems. Respiratory: Negative for Bronchitis, COPD, Current cough, Dyspnea, Pneumonia within 6 weeks (date), Tobacco Use, URI < 2 weeks Cardiovascular: Negative for Recent MD, Angina, Arrhythmia, CAD, Chest Pain, CHF, PVD, Valvular Heart Disease, DVT/PE+HLD, +HTN GI: No history of GI symptoms or problems. No history of esophageal varices, recent ascites, or ETOH greater than 2 drinks per day. : Negative for dysuria, frequency, and incontinence+CKD 3 SUPERVISOR CONDITIONING YARD: Negative for abnormal vaginal bleeding, abnormal vaginal [...] EKG 10/31/22 pending ECHO 03/05/14 scanned into [facility] Stress test 03/06/14 scanned into [facility] Assessment/Plan Type 1 diabetes mellitus [...] TIME: 8:52 AM documented in this encounter [facility] 11-10-2022 Instructions Lida Mir PA-C - 11/10/2022 8:38 AM EDT PATIENT PREOPERATIVE INSTRUCTIONS Sharan Mendoza MD has scheduled you for your procedure at this surgery center: [facility] [place] Scheduling Office: [phone] --[address] [place] [address]. Please read below carefully for your personalized [...] Procedures: - YOU MUST HAVE A RESPONSIBLE CUSTOMER EXPERIENCE MANAGER TAKE YOU HOME. A BEHAVIORAL HEALTH CONSULTANT OR OLD COIN DEALER CANNOT BE MADE A RESPONSIBLE CUSTOMER EXPERIENCE MANAGER. - We recommend that a responsible person [...] call the Monday before. Your surgeon s scheduler maintenance will tell you what time to call the office. - If you have not reached the departmental scheduler maintenance by 5 P.M., call [phone] after 5 P.M. the day before your surgery. Please be aware that emergency situations arise, which may delay or change your surgical time. If this happens, we will notify you as soon as possible and regret any inconvenience. If you already have an Advance Directive, please fax a copy to [phone] or email to for it to be [...] Lida Mir PA-C documented in this encounter [facility] 11-08-2022 Telephone encounter Note Medication(s) refilled: Requested Prescriptions Signed Prescriptions Disp Refills losartan (Cozaar) 50 MG tablet 90 tablet 1 Sig: Take 1 tablet (50 mg) by mouth daily. Authorizing Provider: NIECY DADISON DO 11/08/2022 10:28 AM [facility] 11-08-2022 Miscellaneous Notes Medication(s) refilled: Requested Prescriptions Signed Prescriptions Disp Refills losartan (Cozaar) 50 MG tablet 90 tablet 1 Sig: Take 1 tablet (50 mg) by mouth daily. Authorizing Provider: NIECY ADDISON DO 11/08/2022 10:28 AM documented in this encounter [facility] 10-31-2022 Miscellaneous Notes Call to Jael Riley missed pre op today due to being ill. We will reschedule for 3/16. All questions answered. Alban Batres PA-C Jael (pt's spouse) returned Alban Batres's call - [phone]. Electronically signed by María Elena Yen [facility] at 10/31/2022 11:56 AM EST documented in this encounter [facility] 10-31-2022 Miscellaneous Notes Patient was scheduled for in person [facility]ACC appt at 7:20 today. Patient did not check in for appt, called patient at 7:30 to see if they were planning on coming. Patient did not answer, will need to be rescheduled. Surgeon s office was notified of missed appointment. documented in this encounter [facility] 10-06-2022 Miscellaneous Notes Spoke with patient's . [...] next steps. Jael documented in this encounter [facility] 09-22-2022 Evaluation + Plan note Associated Problem(s): Chronic painful diabetic neuropathy (CMS/HCC) (HCC) Controlled After addressing medication(s) compliance, adverse effects, and efficacy of treatment(s), medications for this controlled chronic condition will be continued. Will try to simply regimen for now with 62.5 mcg patch Agreeable to see Palliative at [facility] in November - would be due for UDS and refills at that time (PCP to facilitate) Will be following up with pain management [facility] for implant - time of procedure still TBD [facility] 09-22-2022 Miscellaneous Notes Associated Problem(s): Chronic painful diabetic neuropathy (CMS/HCC) (HCC) Controlled After addressing medication(s) compliance, adverse effects, and efficacy of treatment(s), medications for this controlled chronic condition will be continued. Will try to simply regimen for now with 62.5 mcg patch Agreeable to see Palliative at [facility] in November - would be due for UDS and refills at that time (PCP to facilitate) Will be following up with pain management [facility] for implant - time of procedure still TBD documented in this encounter [facility] 09-22-2022 History of Present illness Narrative Images from the original note were not included. Prechart note: (the following data was documented before the visit began) Rooming: Possible agenda: Provider notes: due for duragesic 50 mcg Added 12.5 mg patch 09/01/22 [facility] Multidisciplinary team needs: Health Maintenance to be [...] - Booster for Moderna series) (end precharting)- [facility] [address] [facility] [address] Dept: [phone] Dept Loc: [phone] Subjective Patient was seen today via Telehealth [...] stated that they are currently in the [facility]. If the patient is a minor, permission [...] or diversion identified., and Assessed functional status. [facility] PAIN MANAGEMENT DRUG PANEL Date Value [...] mcg patch Agreeable to see Palliative at [facility] in November - would be due for [...] in about 3 months (around 12/14/2022) for [facility], for in-person OV. Niecy Addison DO 09/22/22 11:24 AM documented in this encounter [facility] 09-22-2022 Note HNO ID: [id number] Author: Katelynn Lewis, PhD Service: ? Author Type: Psychologist Type: Progress Notes Filed: 09/22/2022 1:10 PM Note Text: [facility]IN [facility]NAG[facility] BEHAVIORAL MEDICINE EVALUATION REFERRING PHYSICIAN: Sharan Mendoza MD; Alban Batres PA-C ATTENDING PHYSICIAN: Katelynn Lewis, PHD Jael Benson PATIENT TYPE: [facility] : 1965 DATE OF SERVICE: September 22, 2022 IDENTIFYING INFORMATION Jael Benson is a 57 year old female from [place], [place], who was referred for evaluation by [...] and [address] Bo in the [place] area without significant relief. She has had [...] Take 1 tab (more content not included)... [facility] 09-22-2022 History of Present illness Narrative [facility] PAIN MANAGEMENT BEHAVIORAL MEDICINE EVALUATION REFERRING PHYSICIAN: Sharan Mendoza MD; Alban Batres PA-C ATTENDING PHYSICIAN: Katelynn Lewis, PHD Jael Benson PATIENT TYPE: [facility] : 1965 DATE OF SERVICE: September 22, 2022 IDENTIFYING INFORMATION Jael Benson is a 57 year old female from [place], [place], who was referred for evaluation by [...] and [address] Bo in the [place] area without significant relief. She has had [...] Set for Insulin Pump (JUSTUS INFUSION SET) [facility] ISet MMT 923 changes site every 3 days 30 Each 4 Insulin Pump Syringe (PARADIGM RESERVOIR) 1.8 mL [facility] MMT 326A changes site every 3 days 30 Each 4 Catheter 14-16 [facility]- [facility] use as directed four times a day [...] HISTORY Her mother and father live in [facility] where they do not have good access [...] dogs. 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 They describe their relationship as being very close. 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 When the children were a little older she worked in [employer] for a while and also for a [...] lot of gardening, and some of the switchboard troubleshooter due to her diabetes. She states she [...] Katelynn Lewis, PHD documented in this encounter [facility] 09-01-2022 Evaluation + Plan note Associated Problem(s): Chronic painful diabetic neuropathy (CMS/HCC) (HCC) Uncontrolled Increase in baseline pain Agreeable to increase dose of duragesic with specific instructions that would need to see Pain Stewardship at [facility] in November Patient still has Duragesic [...] is due for next 50 mcg refill [facility] 09-01-2022 Miscellaneous Notes Associated Problem(s): Chronic painful diabetic neuropathy (CMS/HCC) (HCC) Uncontrolled Increase in baseline pain Agreeable to increase dose of duragesic with specific instructions that would need to see Pain Stewardship at [facility] in November Patient still has Duragesic [...] Modules accepted: Orders documented in this encounter [facility] 09-01-2022 Miscellaneous Notes Associated Problem(s): Chronic painful diabetic neuropathy (CMS/HCC) (HCC) Uncontrolled Increase in baseline pain Agreeable to increase dose of duragesic with specific instructions that would need to see Pain Stewardship at [facility] in November Patient still has Duragesic [...] 50 mcg refill documented in this encounter [facility] 09-01-2022 Miscellaneous Notes Associated Problem(s): Chronic painful diabetic neuropathy (CMS/HCC) (HCC) Uncontrolled Increase in baseline pain Agreeable to increase dose of duragesic with specific instructions that would need to see Pain Stewardship at [facility] in November Patient still has Duragesic [...] Urine drug screen is concordant Addended by: NICEY ADDISON on: 09/02/2022 07:42 AM Modules accepted: Orders Addended by: JAREN MONTANEZ on: 09/02/2022 08:55 AM Modules accepted: Orders documented in this encounter [facility] 09-01-2022 Miscellaneous Notes Associated Problem(s): Chronic painful diabetic neuropathy (CMS/HCC) (HCC) Uncontrolled Increase in baseline pain Agreeable to increase dose of duragesic with specific instructions that would need to see Pain Stewardship at [facility] in November Patient still has Duragesic [...] Modules accepted: Orders documented in this encounter [facility] 09-01-2022 History of Present illness Narrative Images from the original note were not included. Prechart note: (the following data was documented before the visit began) Rooming: yearly LTOT paperwork and urine for UDS - ordered 06/2022 in [facility] Possible agenda: LTOT Provider notes: Med rec- [...] - Booster for Moderna series) (end precharting)- [facility] [address] [facility] [address] Dept: [phone] Dept Loc: [phone] Assessment/Plan 1. Chronic painful diabetic neuropathy (CMS/HCC) (HCC) Assessment & Plan: Uncontrolled Increase in baseline pain Agreeable to increase dose of duragesic with specific instructions that would need to see Pain Stewardship at [facility] LTOT MDC in November Patient still has [...] of potential drug abuse or diversion identified. [facility] PAIN MANAGEMENT DRUG PANEL Date Value Ref [...] Judgment: Judgment normal. documented in this encounter [facility] 09-01-2022 History of Present illness Narrative Images from the original note were not included. Prechart note: (the following data was documented before the visit began) Rooming: yearly LTOT paperwork and urine for UDS - ordered 06/2022 in [facility] Possible agenda: LTOT Provider notes: Med rec- [...] - Booster for Moderna series) (end precharting)- [facility] [address] [facility] [address] Dept: [phone] Dept Loc: [phone] Assessment/Plan 1. Chronic painful diabetic neuropathy (CMS/HCC) (HCC) Assessment & Plan: Uncontrolled Increase in baseline pain Agreeable to increase dose of duragesic with specific instructions that would need to see Pain Stewardship at [facility] LTOT MDC in November Patient still has [...] of potential drug abuse or diversion identified. [facility] PAIN MANAGEMENT DRUG PANEL Date Value [...] Judgment: Judgment normal. documented in this encounter [facility] 09-01-2022 History of Present illness Narrative [...] - Booster for Moderna series) (end precharting)- [facility] [address] [facility] [address] Dept: [phone] Dept Loc: [phone] Assessment/Plan 1. Chronic painful diabetic neuropathy (CMS/HCC) ([facility]) Assessment & Plan: Uncontrolled Increase in baseline pain Agreeable to increase dose of duragesic with specific instructions that would need to see Pain Stewardship at [facility] LTOT MDC in November Patient still has [...] of potential drug abuse or diversion identified. [facility] PAIN MANAGEMENT DRUG PANEL Date Value Ref [...] Judgment: Judgment normal. documented in this encounter [facility] 09-01-2022 History of Present illness Narrative Images from the original note were not included. Prechart note: (the following data was documented before the visit began) Rooming: yearly LTOT paperwork and urine for UDS - ordered 06/2022 in [facility] Possible agenda: LTOT Provider notes: Med rec- recently on antibiotics in [facility] Multidisciplinary team needs: Health Maintenance [...] - Booster for Moderna series) (end precharting)- [facility] [address] [facility] [address] Dept: [phone] Dept Loc: [phone] Assessment/Plan 1. Chronic painful diabetic neuropathy (CMS/HCC) ([facility]) Assessment & Plan: Uncontrolled Increase in baseline pain Agreeable to increase dose of duragesic with specific instructions that would need to see Pain Stewardship at [facility] LTOT MDC in November Patient still has [...] without increased pain Needs refills sent to [facility] - new insurance Controlled Substances Monitoring: No flowsheet data found. OARRs Reviewed. and No signs of potential drug abuse or diversion identified. [facility] PAIN MANAGEMENT DRUG PANEL Date Value Ref [...] Judgment: Judgment normal. documented in this encounter [facility] 09-01-2022 Yodit Addison DO - 09/01/2022 9:50 AM EST Please call [phone] to schedule an appointment for your mammogram. documented in this encounter [facility] 09-01-2022 Instructions Niecy Addison DO - 09/01/2022 9:50 AM EST Please call [phone] to schedule an appointment for your mammogram. documented in this encounter [facility] 09-01-2022 Yodit Addison DO - 09/01/2022 9:50 AM EST Please call [phone] to schedule an appointment for your mammogram. documented in this encounter [facility] 09-01-2022 Yodit Addison DO - 09/01/2022 9:50 AM EST Please call [phone] to schedule an appointment for your mammogram. documented in this encounter [facility] 09-01-2022 Note Addended by: NIECY ADDISON on: 09/02/2022 07:42 AM Modules accepted: Orders [facility] 09-01-2022 Note Addended by: JAREN PATINO on: 09/02/2022 08:55 AM Modules accepted: Orders [facility] 09-01-2022 Note Addended by: NIECY ADDISON on: 09/02/2022 07:42 AM Modules accepted: Orders [facility] 09-01-2022 Note Addended by: JAREN PATINO on: 09/02/2022 08:55 AM Modules accepted: Orders [facility] 09-01-2022 Note Addended by: NIECY ADDISON on: 09/02/2022 07:42 AM Modules accepted: Orders [facility] 09-01-2022 Note Addended by: JAREN PATINO on: 09/02/2022 08:55 AM Modules accepted: Orders [facility] 09-01-2022 Note Addended by: NIECY ADDISON on: 09/02/2022 07:42 AM Modules accepted: Orders [facility] 09-01-2022 Note Addended by: JAREN PATINO on: 09/02/2022 08:55 AM Modules accepted: Orders [facility] 09-01-2022 Note Addended by: NIECY ADDISON on: 09/02/2022 07:42 AM Modules accepted: Orders [facility] 09-01-2022 Note Addended by: JAREN PATINO on: 09/02/2022 08:55 AM Modules accepted: Orders [facility] 09-01-2022 Note Addended by: NIECY ADDISON on: 09/02/2022 07:42 AM Modules accepted: Orders [facility] 09-01-2022 Note Addended by: JAREN PATINO on: 09/02/2022 08:55 AM Modules accepted: Orders [facility] 09-01-2022 Note Addended by: NIECY ADDISON on: 09/02/2022 07:42 AM Modules accepted: Orders [facility] 09-01-2022 Note Addended by: JAREN PATINO on: 09/02/2022 08:55 AM Modules accepted: Orders [facility] 09-01-2022 Progress note Formatting of t his note might be different from the original. Urine drug screen is concordant [facility] 09-01-2022 Progress note Formatting of t his note might be different from the original. Urine drug screen is concordant [facility] 08-25-2022 History of Present illness Narrative [...] Set for Insulin Pump (JUSTUS INFUSION SET) [facility] ISet MMT 923 changes site every 3 days 30 Each 4 Insulin Pump Syringe (PARADIGM RESERVOIR) 1.8 mL [facility] MMT 326A changes site every 3 days 30 Each 4 amoxicillin-clavulanic acid (AUGMENTIN) 875-125 mg per tablet Take 1 tablet by mouth twice daily for 7 days. 14 tablet 0 Catheter 14-16 Fr- [facility] use as directed four times a day [...] ALBERTA Juan PA-C documented in this encounter [facility] 07-08-2022 History of Present illness Narrative Cologuard orders canceled automatically by interface (?) - reordered today documented in this encounter [facility] 07-08-2022 Miscellaneous Notes Addended by: NIECY ADDISON on: 04/19/2024 12:42 PM Modules accepted: Orders documented in this encounter [facility] 07-08-2022 Note Addended by: NIECY ADDISON on: 04/19/2024 12:42 PM Modules accepted: Orders [facility] 07-01-2022 History of Present illness Narrative [...] Brad Langford DO documented in this encounter [facility] 06-03-2022 History of Present illness Narrative [facility] [...] Winnie Brown DO documented in this encounter [facility] 05-25-2022 Note HNO ID: [id number] Author: Antoinette Burleson, RT(R) Service: ? Author Type: Technologist Type: [...] RDMS, RVT May 25, 2022 2:05 PM [facility] 05-25-2022 History of Present illness Narrative Radiology [...] 2022 2:05 PM documented in this encounter [facility] Evaluation note Diagnosis Chronic painful diabetic neuropathy (HCC) Acute pyelonephritis Acute pyelonephritis without lesion of renal medullary necrosis Neurogenic bladder Neurogenic bladder, NOS documented in this encounter [facility] Work Phone: Evaluation note* Diagnosis Urinary frequency documented in this encounter [facility] Work Phone: Evaluation note* Diagnosis Chronic painful diabetic neuropathy (HCC) [facility]: Evaluation note* Diagnosis [...] due to viruses [facility] Diagnosis Pain disorder with related psychological [...] stated as uncontrolled [facility] Diagnosis 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 [...] stated as uncontrolled [facility] Diagnosis Chronic painful diabetic neuropathy (CMS/HCC) (HCC)- Primary [facility] painful diabetic neuropathy (CMS/HCC) (HCC)- Primary [facility] Diagnosis Chronic painful diabetic neuropathy (CMS/HCC) (HCC)- Primary [facility] Diagnosis Chronic painful diabetic neuropathy (CMS/HCC) (HCC)- Primary Screening for lipid disorders Need for hepatitis C screening test Special screening examination for other specified viral diseases Screening for HIV (human immunodeficiency virus) Special screening examination for other specified viral diseases Thyroid disorder screen Screening for thyroid disorder [facility] Diagnosis Chronic painful diabetic neuropathy (CMS/HCC) (HCC)- Primary Recurrent major depressive disorder, in remission (HCC) Coronary artery disease involving [place] coronary artery of [place] heart without angina pectoris Menopausal syndrome on hormone replacement therapy Colon cancer screening Special screening for malignant neoplasms, colon Encounter for screening mammogram for malignant neoplasm of breast [facility] Diagnosis Urinary retention- Primary Unspecified retention of urine Neurogenic bladder Neurogenic bladder, NOS Frequent UTI Urinary tract infection, site not specified Nocturia documented in this encounter [facility] Work Phone: Evaluation note* Diagnosis Chronic painful diabetic neuropathy (CMS/HCC) (HCC) [facility] Diagnosis Chronic painful diabetic neuropathy (CMS/HCC) (HCC)- Primary Menopausal syndrome on hormone replacement therapy Pain in both hands Need for vaccination Need for prophylactic vaccination and inoculation against unspecified single disease [facility]* Diagnosis Moderate episode of recurrent major depressive disorder (HCC)- Primary [facility] Diagnosis Moderate episode of recurrent major depressive disorder (HCC) [facility] Diagnosis Type 1 diabetes mellitus with [...] malignant neoplasms, colon [facility] Diagnosis Chronic painful diabetic neuropathy (CMS/HCC) (HCC) [facility] Diagnosis Chronic painful diabetic neuropathy (CMS/HCC) (HCC)- Primary Pain in both hands Encounter for screening mammogram for malignant neoplasm of breast Colon cancer screening Special screening for malignant neoplasms, colon [facility] Diagnosis Psychophysiological insomnia- Primary Persistent disorder of initiating or maintaining sleep [facility] Diagnosis Type 1 diabetes mellitus with [...] malignant neoplasms, colon [facility] Diagnosis Chronic painful diabetic neuropathy (CMS/HCC) (HCC) [facility] Diagnosis Pre-op evaluation- Primary Preoperative [...] involving maculae (HCC) [facility]* Diagnosis Chronic painful diabetic neuropathy (CMS/HCC) (HCC) documented in this encounter [facility] note* Diagnosis Chronic painful diabetic neuropathy (CMS/HCC) (HCC)- Primary Menopausal syndrome on hormone replacement therapy Encounter for monitoring opioid maintenance therapy Encounter for screening mammogram for malignant neoplasm of breast Colon cancer screening Special screening for malignant neoplasms, colon documented in this encounter [facility] note* Diagnosis Psychophysiological insomnia- Primary Persistent disorder of initiating or maintaining sleep Chronic painful diabetic neuropathy (CMS/HCC) (HCC) Recurrent major depressive disorder, in remission (HCC) Coronary artery disease involving [place] coronary artery of [place] heart without angina pectoris documented in this encounter [facility] note* Diagnosis Pre-op evaluation- Primary Preoperative [...] (CMS/HCC) (HCC)- Primary documented in this encounter [facility] note* Diagnosis Chronic painful diabetic neuropathy (CMS/HCC) (HCC) [facility] Diagnosis Chronic painful diabetic neuropathy (CMS/HCC) (HCC) [facility] Diagnosis Chronic painful diabetic neuropathy (CMS/HCC) [...] in remission (HCC) Coronary artery disease involving [place] coronary artery of [place] heart without angina pectoris Menopausal syndrome on [...] in remission (HCC) Coronary artery disease involving [place] coronary artery of [place] heart without angina pectoris Screening mammogram for breast cancer [facility] Diagnosis Chronic painful diabetic neuropathy (CMS/HCC) [...] in remission (HCC) Coronary artery disease involving [place] coronary artery of [place] heart without angina pectoris Menopausal syndrome on [...] in remission (HCC) Coronary artery disease involving [place] coronary artery of [place] heart without angina pectoris Chronic painful diabetic neuropathy (CMS/HCC) (HCC)- Primary Essential hypertension Unspecified essential hypertension Psychophysiological insomnia Persistent disorder of initiating or maintaining sleep 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 Need for [...] in remission (HCC) Coronary artery disease involving [place] coronary artery of [place] heart without angina pectoris Menopausal syndrome on [...] in remission (HCC) Coronary artery disease involving [place] coronary artery of [place] heart without angina pectoris Chronic painful diabetic neuropathy (CMS/HCC) (HCC)- Primary Essential hypertension Unspecified essential hypertension Psychophysiological insomnia Persistent disorder of initiating or maintaining sleep 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 Need for [...] in remission (HCC) Coronary artery disease involving [place] coronary artery of [place] heart without angina pectoris Menopausal syndrome on [...] in remission (HCC) Coronary artery disease involving [place] coronary artery of [place] heart without angina pectoris Chronic painful diabetic neuropathy (CMS/HCC) (HCC)- Primary Essential hypertension Unspecified essential hypertension Psychophysiological insomnia Persistent disorder of initiating or maintaining sleep 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 Need for vaccination Need for prophylactic vaccination and inoculation against unspecified single disease Colon cancer screening Special screening for malignant neoplasms, colon Depression, major, recurrent, mild (HCC)- Primary [facility]* Diagnosis Chronic painful diabetic [...] in remission (HCC) Coronary artery disease involving [place] coronary artery of [place] heart without angina pectoris Menopausal syndrome on [...] in remission (HCC) Coronary artery disease involving [place] coronary artery of [place] heart without angina pectoris Chronic painful diabetic neuropathy (CMS/HCC) (HCC)- Primary Essential hypertension Unspecified essential hypertension Psychophysiological insomnia Persistent disorder of initiating or maintaining sleep [facility] current use 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 Need for vaccination Need for prophylactic vaccination and inoculation against unspecified single disease Colon cancer screening Special screening for malignant neoplasms, colon Chronic painful diabetic neuropathy (CMS/HCC) (HCC) [facility] Diagnosis Nocturia Urinary retention Unspecified retention of urine Neurogenic bladder Neurogenic bladder, NOS Frequent UTI Urinary tract infection, site not specified documented in this encounter [facility] Work Phone: Evaluation note* Diagnosis Chronic painful [...] in remission (HCC) Coronary artery disease involving [place] coronary artery of [place] heart without angina pectoris Menopausal syndrome on [...] in remission (HCC) Coronary artery disease involving [place] coronary artery of [place] heart without angina pectoris Chronic painful diabetic neuropathy (CMS/HCC) (HCC)- Primary Essential hypertension Unspecified essential hypertension Psychophysiological insomnia Persistent disorder of initiating or maintaining sleep 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 Need for vaccination Need for prophylactic vaccination and inoculation against unspecified single disease Colon cancer screening Special screening for malignant neoplasms, colon Chronic painful diabetic neuropathy (CMS/HCC) (HCC)- Primary Psychophysiological insomnia Persistent disorder of initiating or maintaining sleep Microalbuminuria Proteinuria [facility] current use 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 Screening cholesterol level Screening for lipoid disorders Encounter for screening mammogram for malignant neoplasm of breast Colon cancer screening Special screening for malignant neoplasms, colon [facility] Diagnosis Pre-op evaluation- Primary Preoperative examination, [...] in remission (HCC) Coronary artery disease involving [place] coronary artery of [place] heart without angina pectoris Menopausal syndrome on [...] in remission (HCC) Coronary artery disease involving [place] coronary artery of [place] heart without angina pectoris Chronic painful diabetic neuropathy (CMS/HCC) (HCC)- Primary Essential hypertension Unspecified essential hypertension Psychophysiological insomnia Persistent disorder of initiating or maintaining sleep 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 Need for vaccination Need for prophylactic vaccination and inoculation against unspecified single disease Colon cancer screening Special screening for malignant neoplasms, colon Chronic painful diabetic neuropathy (CMS/HCC) (HCC)- Primary Psychophysiological insomnia Persistent disorder of initiating or maintaining sleep Microalbuminuria Proteinuria 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 Screening cholesterol level Screening for lipoid disorders Encounter for screening mammogram for malignant neoplasm of breast Colon cancer screening Special screening for malignant neoplasms, colon Chronic painful diabetic neuropathy (CMS/HCC) (HCC) documented [facility]* Diagnosis Chronic painful diabetic [...] in remission (HCC) Coronary artery disease involving [place] coronary artery of [place] heart without angina pectoris Menopausal syndrome on [...] in remission (HCC) Coronary artery disease involving [place] coronary artery of [place] heart without angina pectoris Chronic painful diabetic neuropathy (CMS/HCC) (HCC)- Primary Essential hypertension Unspecified essential hypertension Psychophysiological insomnia Persistent disorder of initiating or maintaining sleep [facility] current use 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 Need for vaccination Need for prophylactic vaccination and inoculation against unspecified single disease Colon cancer screening Special screening for malignant neoplasms, colon Chronic painful diabetic neuropathy (CMS/HCC) (HCC)- Primary Psychophysiological insomnia Persistent disorder of initiating or maintaining sleep Microalbuminuria Proteinuria 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 Screening cholesterol level Screening for lipoid disorders Encounter for screening mammogram for malignant neoplasm of breast Colon cancer screening Special screening for malignant neoplasms, colon Psychophysiological insomnia Persistent disorder of initiating or maintaining sleep [facility] Diagnosis Chronic painful diabetic neuropathy (CMS/HCC) [...] in remission (HCC) Coronary artery disease involving [place] coronary artery of [place] heart without angina pectoris Menopausal syndrome on [...] in remission (HCC) Coronary artery disease involving [place] coronary artery of [place] heart without angina pectoris Chronic painful diabetic neuropathy (CMS/HCC) (HCC)- Primary Essential hypertension Unspecified essential hypertension Psychophysiological insomnia Persistent disorder of initiating or maintaining sleep 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 Need for vaccination Need for prophylactic vaccination and inoculation against unspecified single disease Colon cancer screening Special screening for malignant neoplasms, colon Chronic painful diabetic neuropathy (CMS/HCC) (HCC)- Primary Psychophysiological insomnia Persistent disorder of initiating or maintaining sleep Microalbuminuria Proteinuria [facility] current use 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 Screening cholesterol level Screening for lipoid disorders Encounter for screening mammogram for malignant neoplasm of breast Colon cancer screening Special screening for malignant neoplasms, colon Psychophysiological insomnia Persistent disorder of initiating or maintaining sleep documented [facility]* Diagnosis Chronic painful diabetic [...] in remission (HCC) Coronary artery disease involving [place] coronary artery of [place] heart without angina pectoris Menopausal syndrome on [...] in remission (HCC) Coronary artery disease involving [place] coronary artery of [place] heart without angina pectoris Chronic painful diabetic neuropathy (CMS/HCC) (HCC)- Primary Essential hypertension Unspecified essential hypertension Psychophysiological insomnia Persistent disorder of initiating or maintaining sleep 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 Need for vaccination Need for prophylactic vaccination and inoculation against unspecified single disease Colon cancer screening Special screening for malignant neoplasms, colon Chronic painful diabetic neuropathy (CMS/HCC) (HCC)- Primary Psychophysiological insomnia Persistent disorder of initiating or maintaining sleep Microalbuminuria Proteinuria [facility] current use 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 Screening cholesterol level Screening for lipoid disorders Encounter for screening mammogram for malignant neoplasm of breast Colon cancer screening Special screening for malignant neoplasms, colon documented [facility]* Diagnosis Chronic painful diabetic [...] in remission (HCC) Coronary artery disease involving [place] coronary artery of [place] heart without angina pectoris Menopausal syndrome on [...] in remission (HCC) Coronary artery disease involving [place] coronary artery of [place] heart without angina pectoris Chronic painful diabetic neuropathy (CMS/HCC) (HCC)- Primary Essential hypertension Unspecified essential hypertension Psychophysiological insomnia Persistent disorder of initiating or maintaining sleep [facility] current use 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 Need for vaccination Need for prophylactic vaccination and inoculation against unspecified single disease Colon cancer screening Special screening for malignant neoplasms, colon Chronic painful diabetic neuropathy (CMS/HCC) (HCC)- Primary Psychophysiological insomnia Persistent disorder of initiating or maintaining sleep Microalbuminuria Proteinuria 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 Screening cholesterol level Screening for lipoid disorders Encounter for screening mammogram for malignant neoplasm of breast Colon cancer screening Special screening for malignant neoplasms, colon Chronic painful diabetic neuropathy (CMS/HCC) (HCC)- Primary Acute on chronic renal insufficiency Acute kidney failure, unspecified Screen for colon cancer Special screening for malignant neoplasms, colon [facility] Diagnosis Frequent UTI Urinary tract infection, site not specified Neurogenic bladder Neurogenic bladder, NOS Nocturia documented in this encounter [facility] Work Phone: Evaluation note* Diagnosis Chronic painful [...] in remission (HCC) Coronary artery disease involving [place] coronary artery of [place] heart without angina pectoris Menopausal syndrome on [...] in remission (HCC) Coronary artery disease involving [place] coronary artery of [place] heart without angina pectoris Chronic painful diabetic neuropathy (CMS/HCC) (HCC)- Primary Essential hypertension Unspecified essential hypertension Psychophysiological insomnia Persistent disorder of initiating or maintaining sleep 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 Need for vaccination Need for prophylactic vaccination and inoculation against unspecified single disease Colon cancer screening Special screening for malignant neoplasms, colon Chronic painful diabetic neuropathy (CMS/HCC) (HCC)- Primary Psychophysiological insomnia Persistent disorder of initiating or maintaining sleep Microalbuminuria Proteinuria 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 Screening cholesterol level Screening for lipoid disorders Encounter for screening mammogram for malignant neoplasm of breast Colon cancer screening Special screening for malignant neoplasms, colon Chronic painful diabetic neuropathy (CMS/HCC) (HCC)- Primary Acute on chronic renal insufficiency Acute kidney failure, unspecified Screen for colon cancer Special screening for malignant neoplasms, colon Chronic painful diabetic neuropathy (CMS/HCC) ([facility]) Psychophysiological insomnia Persistent disorder of initiating or maintaining sleep [facility]. HX OF FREQUENT UTIS AND BLADDER INFECTIONS. SHE RECENTLYCOMPLETED ANTIBX. SHE HAS A NGB FROM [facility] AND HAS TO DO CIC. HAS OCCASIONAL FREQUENCY AND URGENCY IN THE MORNING. . DENIES HEMATURIA. NOCTURIA X [id number] Work Phone: History of Present illness Narrative* [...] dehydrated)... A renal U/S 2022 showed mild [place] with no stones. hx of recurrent UTI'S. [...] U/S reviewed-Repeat ordered given Hx of mild [place] on previous F/u 3 months with labs and Renal U[facility] Reason for referral (narrative)* Diagnostic Procedure Only (Routine) - New Request Specialty Diagnoses / Procedures Referred By Orion t Referred To Contact US IMAGING Diagnoses Type 1 diabetes mellitus with diabetic polyneuropathy (HCC) Procedures US THYROID/PARATHYROID US SOFT TISSUE HEAD & NECK REAL TIME IMGE ABDIEL Frances, Heraclio Hernandez MD [id number] [facility] [place] [address] Referral ID Status Reason Start Date Expiration Date Visits Requested Visits Authorized [id number] New Request Auto-Generat ed Referral 4 08/16/2025 1 1 [facility] Advance Directives Documents on File Type Date Recorded [employer] Expl anation Advance Directives and Living Will Power of Business And Services Instructor Documents on File Type Date Recorded [employer] Expl anation ACP-Advance Directive ACP-Power of Business And Services Instructor Assessments Diagnosis Essential hypertension Unspecified essential hypertension [...] MATERIAL Gavin Cruz PA-C [address] [place] [address] Mr Imaging Referral ID Status Reason Start Date Expiration Date V isits Requested Visits Authorized [id number] Closed Auto-Generate d Referral 04/29/2022 06/17/2022 1 1 Specialty Diagnoses / Procedures Referred By Contac t Referred To Contact MR IMAGING Diagnoses Radiculopathy of lumbar region Procedures MRI THORACIC SPINE WO IVCON MRI SPINAL CANAL THORACIC W/O CONTRAST MATRL Gavin Cruz PA-C [address] [place] [address] Mr Imaging Referral ID Status Reason Start Date Expiration Date V isits Requested Visits Authorized [id number] Closed Auto-Generate d Referral 04/29/2022 06/17/2022 1 1 Specialty Diagnoses / Procedures Referred By Contac t Referred To Contact Psychology Diagnoses Numbness and tingling in both hands Procedures CONSULT TO PSYCHOLOGY OFFICE/OUTPATIENT [facility] 60-74 MINUTES Alban Batres PA-C [address] [place] [address] Referral ID Status Reason Start Date Expiration Date Visits Requested Visits Authorized [id number] Pending Review PCP Requested Referral 07/08/2023 1 1 Specialty Diagnoses / Procedures Referred By Contac t Referred To Contact Orthopedics Diagnoses Bilateral carpal tunnel syndrome Procedures CONSULT TO ORTHOPAEDICS OFFICE/OUTPATIENT [facility] 60-74 MINUTES Alban Batres PA-C [address] [place] [address] Referral ID Status Reason Start Date Expiration Date Visits Requested Visits Authorized [id number] Authorized PCP Requested Referral 2 07/08/2023 1 1 Specialty Diagnoses / Procedures Referred By Contac t Referred To Contact Pain Management Diagnoses Radiculopathy of lumbar region Procedures CONSULT TO PAIN MGT OFFICE/OUTPATIENT [facility] 60-74 MINUTES Alban Batres PA-C [address] [place] [address] Referral ID Status Reason Start Date Expiration Date Visits Requested Visits Authorized [id number] Authorized PCP Requested Referral 11/10/2022 11/10/2023 1 1 Specialty Diagnoses / Procedures Referred By Contac t Referred To Contact Diagnoses Chronic painful diabetic neuropathy (CMS/HCC) (HCC) Loc Jones, [address] [address] Referral ID Status Reason Start Date Expiration Date Visits Re quested Visits Authorized [id number] Closed 1 1 Specialty Diagnoses / Procedures Referred By Contac t Referred To Contact Psychology Diagnoses Diabetic peripheral neuropathy (HCC) Procedures CONSULT TO PSYCHOLOGY OFFICE/OUTPATIENT [facility] 60 MINUTES Loc Hdez MD [facility] [id number] [place] [address] Referral ID Status Reason Start Date Expiration Date Visits Requested Visits Authorized [id number] Pending Review PCP Requested Referral 04/24/2024 04/24/2025 1 1 Specialty Diagnoses / Procedures Referred By Contac t Referred To Contact Diagnoses Chronic painful diabetic neuropathy (CMS/HCC) (HCC) Niecy Addison, DO [address] [place] [phone] Referral ID Status Reason Start Date Expiration Date V isits Requested Visits Authorized [id number] Authorized 12/27/2023 01/25/2025 1 1 Health Concerns Infection Onset Date Last Indicated Resolved Time COVID-19 Rule-Out 08/25/2022 08/25/2022 08/26/2022 7:35 AM EST Chief Complaint NPV-EST CARENPV-EST CARE Additional Source Comments Care Teams (unrecognized sec tion and content) Assistant Producer Relationship Specialty Start Date End Date Niecy Addison, DO [address] [place] [address] PCP - General Family Medicine 05/21/20 Assistant Producer Relationship Specialty Start Date End Date Niecy Addison DO [address] [place] [address] PCP - General Family Medicine 05/21/20 Assistant Producer Relationship Specialty Start Date End Date Niecy Addison, DO [address] [place] [address] PCP - General Family Medicine 05/21/20 Assistant Producer Relationship Specialty Start Date End Date Deep Tsang PCP - General 11/09/06 Assistant Producer Relationship Specialty Start Date End Date Niecy Addison DO [address] [place] [address] PCP - General Family Medicine 05/21/20 Assistant Producer Relationship Specialty Start Date End Date Niecy Addison DO [address] [place] [address] PCP - General Family Medicine 05/21/20 Assistant Producer Relationship Specialty Start Date End Date Niecy Addison DO [address] [place] [address] PCP - General Family Medicine 05/21/20 Assistant Producer Relationship Specialty Start Date End Date Niecy Addison MD [address] [place] [address] PCP - General Family Medicine 12/17/21 Assistant Producer Relationship Specialty Start Date End Date Niecy Addison MD [address] [place] [address] PCP - General Family Medicine 12/17/21 Assistant Producer Relationship Specialty Start Date End Date Niecy Addison DO [address] [place] [phone] PCP - General Family Medicine 05/21/20 Assistant Producer Relationship Specialty Start Date End Date Niecy Addison MD [address] [place] [address] PCP - General Family Medicine 12/17/21 Assistant Producer Relationship Specialty Start Date End Date Niecy Addison MD [address] [place] [address] PCP - General Family Medicine 12/17/21 Assistant Producer Relationship Specialty Start Date End Date Niecy Addison MD [address] [place] [address] PCP - General Family Medicine 12/17/21 Assistant Producer Relationship Specialty Start Date End Date Niecy Addison MD [address] [place] [address] PCP - General Family Medicine 12/17/21 Assistant Producer Relationship Specialty Start Date End Date Niecy Addison MD [address] [facility] [place] [address] PCP - General Family Medicine 12/17/21 Assistant Producer Relationship Specialty Start Date End Date Niecy Addison MD [address] [place] [address] PCP - General Family Medicine 12/17/21 Assistant Producer Relationship Specialty Start Date End Date Niecy Addison MD [address] [place] [address] PCP - General Family Medicine 12/17/21 Assistant Producer Relationship Specialty Start Date End Date Niecy Addison MD [address] [place] [address] PCP - General Family Medicine 12/17/21 Assistant Producer Relationship Specialty Start Date End Date Niecy Addison MD [address] [place] [address] PCP - General Family Medicine 12/17/21 Assistant Producer Relationship Specialty Start Date End Date Niecy Addison MD [address] [place] [address] PCP - General Family Medicine 12/17/21 Assistant Producer Relationship Specialty Start Date End Date Niecy Addison DO [address] [place] [phone] PCP - General 05/21/20 Assistant Producer Relationship Specialty Start Date End Date Niecy Addison DO [address] [place] [phone] PCP - General 05/21/20 Assistant Producer Relationship Specialty Start Date End Date Niecy Addison DO [address] [place] [phone] PCP - General 05/21/20 Assistant Producer Relationship Specialty Start Date End Date Niecy Addison DO [address] [place] [phone] PCP - General 05/21/20 Assistant Producer Relationship Specialty Start Date End Date Niecy Addison DO [address] [place] [address] PCP - General 05/21/20 Assistant Producer Relationship Specialty Start Date End Date Niecy Addison DO [address] [place] [address] PCP - General 05/21/20 Assistant Producer Relationship Specialty Start Date End Date Niecy Addison DO [address] [place] [address] PCP - General 05/21/20 Assistant Producer Relationship Specialty Start Date End Date Niecy Addison MD [address] [place], [place] [id number] PCP - General Family Medicine 12/17/21 Assistant Producer Relationship Specialty Start Date End Date Niecy Addison DO [address] [place] [address] PCP - General 05/21/20 Assistant Producer Relationship Specialty Start Date End Date Titi Mallory PA-C [address] [place] [address] [place] [address] PCP - General Internal Medicine 03/21/23 Assistant Producer Relationship Specialty Start Date End Date Niecy Addison DO [address] [place] [address] PCP - General 05/21/20 Assistant Producer Relationship Specialty Start Date End Date Niecy Addison DO [address] [place] [address] PCP - General 05/21/20 Assistant Producer Relationship Specialty Start Date End Date Deep Tsang PCP - General 11/09/06 Assistant Producer Relationship Specialty Start Date End Date Niecy Addison DO [address] [place] [address] PCP - General 05/21/20 Assistant Producer Relationship Specialty Start Date End Date Niecy Addison DO [address] [place] [address] PCP - General 05/21/20 Assistant Producer Relationship Specialty Start Date End Date Niecy Addison DO [address] [place] [address] PCP - General 05/21/20 Assistant Producer Relationship Specialty Start Date End Date Niecy Addison DO [address] [place] [phone] PCP - General 05/21/20 Assistant Producer Relationship Specialty Start Date End Date Niecy Addison MD [address] [facility] [place] [address] PCP - General Family Medicine 12/17/21 Assistant Producer Relationship Specialty Start Date End Date Niecy Addison DO [address] [place] [phone] PCP - General 05/21/20 Assistant Producer Relationship Specialty Start Date End Date Niecy Addison DO [address] [place] [address] PCP - General 05/21/20 Assistant Producer Relationship Specialty Start Date End Date Niecy Addison MD [address] [place] [address] PCP - General Family Medicine 12/17/21 Assistant Producer Relationship Specialty Start Date End Date Niecy Addison DO [address] [place] [address] PCP - General 05/21/20 Assistant Producer Relationship Specialty Start Date End Date Niecy Addison MD [address] [place] [address] PCP - General Family Medicine 12/17/21 Assistant Producer Relationship Specialty Start Date End Date Niecy Addison DO [address] [place] [address] PCP - General 05/21/20 Assistant Producer Relationship Specialty Start Date End Date Niecy Addison MD [address] [place] [address] PCP - General Family Medicine 12/17/21 Assistant Producer Relationship Specialty Start Date End Date Niecy Addison DO [address] [place] [address] PCP - General 05/21/20 Assistant Producer Relationship Specialty Start Date End Date Niecy Addison DO [address] [place] [address] PCP - General 05/21/20 Assistant Producer Relationship Specialty Start Date End Date Niecy Addison MD [address] [place], [place] [id number] PCP - General Family Medicine 12/17/21 Assistant Producer Relationship Specialty Start Date End Date Niecy Addison MD [address] [place] [id number] PCP - General Family Medicine 12/17/21 Assistant Producer Relationship Specialty Start Date End Date Niecy Addison DO [address] [place] [address] PCP - General 05/21/20 Assistant Producer Relationship Specialty Start Date End Date Niecy Addison DO [address] [place] [address] PCP - General 05/21/20 Assistant Producer Relationship Specialty Start Date End Date Niecy Addison MD [address] [place] [address] PCP - General Family Medicine 12/17/21 Assistant Producer Relationship Specialty Start Date End Date Niecy Addison MD [address] [place] [address] PCP - General Family Medicine 12/17/21 Assistant Producer Relationship Specialty Start Date End Date Niecy Addison MD [address] [place] [address] PCP - General Family Medicine 12/17/21 Assistant Producer Relationship Specialty Start Date End Date Niecy Addison DO [address] [place] [address] PCP - General 05/21/20 Assistant Producer Relationship Specialty Start Date End Date Niecy Addison DO [address] [place] [address] PCP - General 05/21/20 Assistant Producer Relationship Specialty Start Date End Date Niecy Addison DO [address] [place] [address] PCP - General 05/21/20 Assistant Producer Relationship Specialty Start Date End Date Niecy Addison DO [address] [place] [phone] PCP - General 05/21/20 Assistant Producer Relationship Specialty Start Date End Date Niecy Addison DO [address] [place] [phone] PCP - General 05/21/20 Assistant Producer Relationship Specialty Start Date End Date Niecy Addison DO [address] [facility] [address] [place] [phone] PCP - General 05/21/20 Assistant Producer Relationship Specialty Start Date End Date Niecy Addison DO [address] [facility] [address] [place] [phone] PCP - General 05/21/20 Assistant Producer Relationship Specialty Start Date End Date Niecy Addison DO [address] [facility] [address] [place] [phone] PCP - General 05/21/20 Assistant Producer Relationship Specialty Start Date End Date Niecy Addison DO [address] [facility] [address] [place] [phone] PCP - General 05/21/20 Assistant Producer Relationship Specialty Start Date End Date Titi Mallory PA-C [address] [facility] [place] [address] PCP - General Internal Medicine 03/21/23 Assistant Producer Relationship Specialty Start Date End Date Niecy Addison DO [address] [place] [address] PCP - General 05/21/20 Assistant Producer Relationship Specialty Start Date End Date Niecy Addison MD [address] [place], [place] [phone] PCP - General Family Medicine 12/17/21 Assistant Producer Relationship Specialty Start Date End Date Niecy Addison DO [address] [place] [address] PCP - General 05/21/20 Assistant Producer Relationship Specialty Start Date End Date Niecy Addison DO [address] [place] [address] PCP - General 05/21/20 Assistant Producer Relationship Specialty Start Date End Date Niecy Addison DO [address] [place] [address] PCP - General 05/21/20 Assistant Producer Relationship Specialty Start Date End Date Niecy Addison DO [address] [place] [address] PCP - General 05/21/20 Assistant Producer Relationship Specialty Start Date End Date Niecy Addiosn DO [address] [place] [address] PCP - General 05/21/20 Assistant Producer Relationship Specialty Start Date End Date Niecy Addison DO [address] [place] [address] PCP - General 05/21/20 Assistant Producer Relationship Specialty Start Date End Date Titi Mallory PA-C [address] [facility] [place] [address] PCP - General Internal Medicine 03/21/23 Assistant Producer Relationship Specialty Start Date End Date Niecy Addison DO [address] [place] [address] PCP - General 05/21/20 INFORMATION SOURCE (unrecogn ized section and content) DATE CREATED AUTHOR 03/22/2022 [facility] DATE CREATED AUTHOR AUTHOR'S ORGANIZ ATION 06/19/2022 [facility] DATE CREATED AUTHOR AUTHOR'S ORGANIZ ATION 09/23/2022 [facility] DATE CREATED AUTHOR AUTHOR'S ORGANIZ ATION 03/24/2023 [facility] DATE CREATED AUTHOR AUTHOR'S ORGANIZ ATION 04/07/2023 [facility] DATE CREATED AUTHOR AUTHOR'S ORGANIZ ATION 04/14/2023 [facility] DATE CREATED AUTHOR AUTHOR'S ORGANIZ ATION 04/14/2023 [facility] DATE CREATED AUTHOR AUTHOR'S ORGANIZ ATION 04/17/2023 [facility] DATE CREATED AUTHOR AUTHOR'S ORGANIZ ATION 02/21/2024 [facility] DATE CREATED AUTHOR AUTHOR'S ORGANIZ ATION 07/29/2024 [facility] DATE CREATED AUTHOR AUTHOR'S ORGANIZ ATION 04/07/2025 [facility] DATE CREATED AUTHOR AUTHOR'S ORGANIZ ATION 04/07/2025 [facility] DATE CREATED AUTHOR AUTHOR'S ORGANIZ ATION 04/22/2025 [facility] Source Comments (unrecognize d section and content) In the event this informatio n is protected by the Federal Confidentiality of Alcohol and Drug Abuse Patient Records regulations: The Federal rules restrict any use of the information to criminally investigate or prosecute any alcohol or drug abuse patient.[facility] the event this information is protected by the Federal Confidentiality of Alcohol and Drug Abuse Patient Records regulations: The Federal rules restrict any use of the information to criminally investigate or prosecute any alcohol or drug abuse patient.[facility] CampusIn the event this information is protected by the Federal Confidentiality of Alcohol and Drug Abuse Patient Records regulations: The Federal rules restrict any use of the information to criminally investigate or prosecute any alcohol or drug abuse patient.[facility] CampusIn the event this information is protected by the Federal Confidentiality of Alcohol and Drug Abuse Patient Records regulations: The Federal rules restrict any use of the information to criminally investigate or prosecute any alcohol or drug abuse patient.[facility] CampusIn the event this information is protected by the Federal Confidentiality of Alcohol and Drug Abuse Patient Records regulations: The Federal rules restrict any use of the information to criminally investigate or prosecute any alcohol or drug abuse patient.[facility] CampusIn the event this information is protected by the Federal Confidentiality of Alcohol and Drug Abuse Patient Records regulations: The Federal rules restrict any use of the information to criminally investigate or prosecute any alcohol or drug abuse patient.[facility] CampusIn the event this information is protected by the Federal Confidentiality of Alcohol and Drug Abuse Patient Records regulations: The Federal rules restrict any use of the information to criminally investigate or prosecute any alcohol or drug abuse patient.[facility] CampusIn the event this information is protected by the Federal Confidentiality of Alcohol and Drug Abuse Patient Records regulations: The Federal rules restrict any use of the information to criminally investigate or prosecute any alcohol or drug abuse patient.[facility] CampusIn the event this information is protected by the Federal Confidentiality of Alcohol and Drug Abuse Patient Records regulations: The Federal rules restrict any use of the information to criminally investigate or prosecute any alcohol or drug abuse patient.[facility] CampusIn the event this information is protected by the Federal Confidentiality of Alcohol and Drug Abuse Patient Records regulations: The Federal rules restrict any use of the information to criminally investigate or prosecute any alcohol or drug abuse patient.[facility] CampusIn the event this information is protected by the Federal Confidentiality of Alcohol and Drug Abuse Patient Records regulations: The Federal rules restrict any use of the information to criminally investigate or prosecute any alcohol or drug abuse patient.[facility] CampusIn the event this information is protected by the Federal Confidentiality of Alcohol and Drug Abuse Patient Records regulations: The Federal rules restrict any use of the information to criminally investigate or prosecute any alcohol or drug abuse patient.[facility] CampusIn the event this information is protected by the Federal Confidentiality of Alcohol and Drug Abuse Patient Records regulations: The Federal rules restrict any use of the information to criminally investigate or prosecute any alcohol or drug abuse patient.[facility] CampusIn the event this information is protected by the Federal Confidentiality of Alcohol and Drug Abuse Patient Records regulations: The Federal rules restrict any use of the information to criminally investigate or prosecute any alcohol or drug abuse patient.[facility] CampusIn the event this information is protected by the Federal Confidentiality of Alcohol and Drug Abuse Patient Records regulations: The Federal rules restrict any use of the information to criminally investigate or prosecute any alcohol or drug abuse patient.[facility] CampusIn the event this information is protected by the Federal Confidentiality of Alcohol and Drug Abuse Patient Records regulations: The Federal rules restrict any use of the information to criminally investigate or prosecute any alcohol or drug abuse patient.[facility] CampusIn the event this information is protected by the Federal Confidentiality of Alcohol and Drug Abuse Patient Records regulations: The Federal rules restrict any use of the information to criminally investigate or prosecute any alcohol or drug abuse patient.[facility] CampusIn the event this information is protected by the Federal Confidentiality of Alcohol and Drug Abuse Patient Records regulations: The Federal rules restrict any use of the information to criminally investigate or prosecute any alcohol or drug abuse patient.[facility] CampusIn the event this information is protected by the Federal Confidentiality of Alcohol and Drug Abuse Patient Records regulations: The Federal rules restrict any use of the information to criminally investigate or prosecute any alcohol or drug abuse patient.[facility] CampusIn the event this information is protected by the Federal Confidentiality of Alcohol and Drug Abuse Patient Records regulations: The Federal rules restrict any use of the information to criminally investigate or prosecute any alcohol or drug abuse patient.[facility] CampusIn the event this information is protected by the Federal Confidentiality of Alcohol and Drug Abuse Patient Records regulations: The Federal rules restrict any use of the information to criminally investigate or prosecute any alcohol or drug abuse patient.[facility] CampusIn the event this information is protected by the Federal Confidentiality of Alcohol and Drug Abuse Patient Records regulations: The Federal rules restrict any use of the information to criminally investigate or prosecute any alcohol or drug abuse patient.[facility] CampusIn the event this information is protected by the Federal Confidentiality of Alcohol and Drug Abuse Patient Records regulations: The Federal rules restrict any use of the information to criminally investigate or prosecute any alcohol or drug abuse patient.[facility] CampusIn the event this information is protected by the Federal Confidentiality of Alcohol and Drug Abuse Patient Records regulations: The Federal rules restrict any use of the information to criminally investigate or prosecute any alcohol or drug abuse patient.[facility] CampusIn the event this information is protected by the Federal Confidentiality of Alcohol and Drug Abuse Patient Records regulations: The Federal rules restrict any use of the information to criminally investigate or prosecute any alcohol or drug abuse patient.[facility] CampusIn the event this information is protected by the Federal Confidentiality of Alcohol and Drug Abuse Patient Records regulations: The Federal rules restrict any use of the information to criminally investigate or prosecute any alcohol or drug abuse patient.[facility] CampusIn the event this information is protected by the Federal Confidentiality of Alcohol and Drug Abuse Patient Records regulations: The Federal rules restrict any use of the information to criminally investigate or prosecute any alcohol or drug abuse patient.[facility] CampusIn the event this information is protected by the Federal Confidentiality of Alcohol and Drug Abuse Patient Records regulations: The Federal rules restrict any use of the information to criminally investigate or prosecute any alcohol or drug abuse patient.[facility] CampusIn the event this information is protected by the Federal Confidentiality of Alcohol and Drug Abuse Patient Records regulations: The Federal rules restrict any use of the information to criminally investigate or prosecute any alcohol or drug abuse patient.[facility] CampusIn the event this information is protected by the Federal Confidentiality of Alcohol and Drug Abuse Patient Records regulations: The Federal rules restrict any use of the information to criminally investigate or prosecute any alcohol or drug abuse patient.[facility] CampusIn the event this information is protected by the Federal Confidentiality of Alcohol and Drug Abuse Patient Records regulations: The Federal rules restrict any use of the information to criminally investigate or prosecute any alcohol or drug abuse patient.[facility] CampusIn the event this information is protected by the Federal Confidentiality of Alcohol and Drug Abuse Patient Records regulations: The Federal rules restrict any use of the information to criminally investigate or prosecute any alcohol or drug abuse patient.[facility] Reason for Visit (unrecogniz ed section and content) Reason Onset Date Comments EMG 07/01/2022 Specialty Diagnoses / Procedures Referred By Contac t Referred To Contact [facility] Diagnoses Weakness Procedures EMG(NEURO/NI) NERVE CONDUCTION STUDIES 9-10 STUDIES Gavin Cruz PA-C [address] [place] [address] Neurological [place] [address] [place] [address] Referral ID Status Reason Start Date Expiration Date V isits Requested Visits Authorized [id number] Closed Auto-Generate d Referral 04/29/2022 04/29/2023 1 1 Specialty Diagnoses / Procedures Referred By Contac t Referred To Contact MR IMAGING Diagnoses Radiculopathy of lumbar region Procedures MRI LUMBAR SPINE WO IVCON MRI SPINAL CANAL LUMBAR W/O CONTRAST MATERIAL Gavin Cruz PA-C [address] [place] [address] Mr Imaging Referral ID Status Reason Start Date Expiration Date V isits Requested Visits Authorized [id number] Closed Auto-Generate d Referral 04/29/2022 06/17/2022 1 1 Specialty Diagnoses / Procedures Referred By Contac t Referred To Contact MR IMAGING Diagnoses Radiculopathy of lumbar region Procedures MRI THORACIC SPINE WO IVCON MRI SPINAL CANAL THORACIC W/O CONTRAST MATRL Gavin Cruz PA-C [address] [place] [address] Mr Imaging Referral ID Status Reason Start Date Expiration Date V isits Requested Visits Authorized [id number] Closed Auto-Generate d Referral 04/29/2022 06/17/2022 1 1 Reason Onset Date Comments EMG 06/03/2022 Referral ID Status Reason Start Date Expiration Date V isits Requested Visits Authorized [id number] Closed Auto-Generate d Referral 04/29/2022 04/29/2023 1 [...] BE BASED ON THE PRIMARY CLINICAL RECORDS. [employer] provides no warranty or guarantee of the accuracy or completeness of information in this document.
[2025-05-10 16:11] LABS: Prothrombin Time (Protime)PT. 13.5 SECONDS (11.7-14.9)
[2025-05-10 16:12] LABS: Partial Thromboplast Time 24.5 Seconds (24.1-36.2)
[2025-05-10 16:31] LABS: Troponin T High Sens 4 HR 387 ng/L (<=14)
--- NOTE | 2025-05-10 21:26 | NURSING ---
This RN taking over care at this time
[2025-05-10 22:15] LABS: Partial Thromboplast Time 247.9 Seconds (24.1-36.2)
[2025-05-11 02:40] VITALS: BP 119/63; PULSE 78; RESP 16; TEMP 36.6; O2SAT 94
[2025-05-11 06:30] LABS: Hematocrit 29.7 % (37-47); Hemoglobin 9.8 g/dL (12.0-15.0); Immature Granulocytes Count 0.000 X10^3/uL (0.0-0.0); Mean Corp Hgb Conc 33.0 g/dL (32-36); Mean Corpuscular Volume 89.2 fL (81-99); Mean Platelet Vol. 9.6 fl (6.2-12.0); NRBC Flagged by Analyzer 0 % (0-5); Platelet Count 181 K/mm3 (150-450); RBC Distribution Width CV 12.3 % (11.6-14.6); RBC Distribution Width SD 39.8 fl (35.1-43.9); Red Blood Count 3.33 M/mm3 (4.2-5.4); White Blood Count 5.0 K/mm3 (4.4-11.0)
[2025-05-11 06:42] LABS: Partial Thromboplast Time 132.0 Seconds (24.1-36.2)
[2025-05-11 07:14] LABS: Anion Gap 9 (5-15); BUN 26 mg/dL (4-19); BUN/Creat Ratio 20.4 RATIO (10-20); Calcium,Total 8.9 mg/dL (7.6-11.0); Carbon Dioxide 26.6 mmol/L (21.0-32.0); Chloride 104 mmol/L (98-108); Cholesterol 111 mg/dL (<=200); Estimated Creatinine Clearance 52.51 ml/min (50-250); Glucose 140 mg/dL (70-99); Low Density Lipoprotein Calc. 54 mg/dL; Potassium 4.0 mmol/L (3.3-5.1); Triglycerides 53 mg/dL; Very Low Density Lipoprotein 11 mg/dL (5-40); cholesterol:hdl ratio screen 2.38
--- NOTE | 2025-05-11 07:28 | PN.HOSP_ITS ---
Reason for Visit Chief Complaint: Syncopal episode Subjective Subjective Patient denies any chest pain now. States she never had chest pain and really came in because of the syncopal episode after she had been choking. Was anxious to eat but understanding that we had to wait until we found out the plan from cardiology. Objective Data Objective Data Vital Signs: Vital Signs Temp Pulse Resp BP Pulse Ox O2 Del Method 97.8 F 78 16 119/63 94 Room Air 05/11/25 02:40 05/11/25 02:40 05/11/25 02:40 05/11/25 02:40 05/11/25 02:40 05/11/25 02:40 Oxygen Delivery Method Room Air Weight: 90.9 kg Body Mass Index (BMI) 35.4 Intake & Output: Intake and Output for Last 24 Hours 05/09/25 05/10/25 05/11/25 23:59 23:59 23:59 Intake Total 1576.83 / 1826.83 312.04 / 312.04 Balance 1576.83 / 1826.83 312.04 / 312.04 Lab / Micro Data 05/11/25 05:47 05/11/25 05:47 Labs: Laboratory Results - last 24 hr 05/10/25 11:25: WBC 4.7, RBC 3.92 L, Hgb 11.7 L, Hct 34.7 L, MCV 88.5, MCH 29.8, MCHC 33.7, RDW Std Deviation 39.3, RDW Coeff of Jose 12.3, Plt Count 159, MPV 9.3, Immature Gran % (Auto) 0.200, Neut % (Auto) 73.0 H, Lymph % (Auto) 20.5, [place] % (Auto) 6.3, Eos % (Auto) 0.0, Baso % (Auto) 0.0, Absolute Neuts (auto) 3.5, Absolute Lymphs (auto) 0.97, Nucleated RBC % 0, Sodium 138, Potassium 4.3, Chloride 100, Carbon Dioxide 27.0, Anion Gap 11, BUN 33 H, Creatinine 1.63 H, E stim Creat Clear Calc 41.84 L, Est GFR (MDRD) Non-Af 36 L, BUN/Creatinine Ratio 20.1 H, Glucose 312 H, Calcium 9.4, Troponin T High Sens 156 H* 05/10/25 11:29: Hemoglobin A1c 6.3 H, TSH 2.330 05/10/25 11:50: Lactic Acid < 1.0 05/10/25 14:00: Troponin T Hi Sens 2 Hr 432 H* 05/10/25 15:30: PT 13.5, INR 1.0, APTT 24.5, Troponin T Hi Sens 4Hr 387 H* 05/10/25 21:10: APTT 247.9 H* 05/11/25 05:47: WBC 5.0, RBC 3.33 L, Hgb 9.8 L, Hct 29.7 L, MCV 89.2, MCH 29.4, MCHC 33.0, RDW Std Deviation 39.8, RDW Coeff of Jose 12.3, Plt Count 181, MPV 9.6, Immature Gran % (Auto) 0.000, Neut % (Auto) 47.5, Lymph % (Auto) 45.3 H, [place] % (Auto) 6.8, Eos % (Auto) 0.2, Baso % (Auto) 0.2, Absolute Neuts (auto) 2.4, Absolute Lymphs (auto) 2.28, Nucleated RBC % 0, APTT 132.0 H*, Sodium 139, Potassium 4.0, Chloride 104, Carbon Dioxide 26.6, Anion Gap 9, BUN 26 H, C reatinine 1.25 H, Estim Creat Clear Calc 52.51, Est GFR (MDRD) Non-Af 50 L, B UN/Creatinine Ratio 20.4 H, Glucose 140 H, Calcium 8.9, Triglycerides 53, Cholesterol 111, LDL Cholesterol, Calc 54, VLDL Cholesterol 11, HDL Cholesterol 47, Cholesterol/HDL Ratio 2.38 Radiography Diagnostic Testing: Radiology Impression Brain CT 05/10/25 11:13 IMPRESSION: Negative for acute intracranial pathology. Negative for acute abnormality of the cervical spine. Reading Location: [facility] Cervical Spine CT 05/10/25 11:13 IMPRESSION: Negative for acute intracranial pathology. Negative for acute abnormality of the cervical spine. Reading Location: [facility] Chest X-Ray 05/10/25 11:35 IMPRESSION: Negative chest Reading Location: [facility] Physical Exam Const alert, oriented x3, no apparent distress and well nourished; Negative for average body habitus Constitutional Narrative: Obese, middle-aged, white female, lying in bed, appears comfortable, nontoxic, nursing at bedside HEENT head/scalp atraumatic and moist oral mucous membranes Head and Scalp: normocephalic Resp normal respiratory effort, no retractions, no use of accessory muscles and clear to auscultation bilaterally Auscultation: Negative for rales, rhonchi or wheezes Cardio regular rate, regular rhythm, S1 normal heart sound, S2 normal heart sound, no murmurs, no rub, no gallops and no clicks GI normal to inspection, nondistended, normoactive bowel sounds, soft to palpation and non-tender Extremity no clubbing, cyanosis or edema Extremity Narrative: 2+ pedal and radial pulses Neuro moves all extremities and no focal motor deficits Speech: speech normal Psych affect normal Psych Narrative: Very pleasant, interacts appropriately Assessment & Plan Assessment/Plan (1) Non-ST elevation MD (NSTEMI): (2) Syncope: (3) Nonobstructive atherosclerosis of coronary artery: (4) Anemia: PLAN: Plan NSTEMI - Patient with similar presentation in October 2021 at which time she had a left heart catheterization that showed mild to moderate stenosis in branches of the RCA and LAD but no significant areas of stenosis--> medical therapy was recommended at that time - Last echocardiogram showed EF of 65% with stage I diastolic dysfunction - Continue heparin drip - Continue aspirin/atorvastatin/restart losartan - A1c is 6.3 - Lipid panel showed a total cholesterol 111/LDL 54/HDL 47 - Plan for cardiac catheterization prior to discharge - Cardiology following-appreciate input Anemia - Significant drop since admission but may be dilutional as she was given IV fluids - Will repeat hemoglobin for stability - On heparin drip but no signs of blood loss - Will also repeat CBC in a.m. CHRISTI on CKD stage IIIb - Baseline some creatinine seems to run between 1.2 and 1.3 - Serum creatinine on presentation was 1.63 - Was given IV fluids appropriation for cath and serum creatinine back down to 1.25 - Avoid nephrotoxins as able -Okay to restart losartan - Repeat chemistry in a.m. Syncopal episode - Seems like it was related to hypoxemia or vagal event related to her choking - No further event - no abnormality on telemetry - No further workup at this time. Recurrent urinary tract infection - Continue home Bactrim DM-1 - Blood sugar overall control seems to be good with a hemoglobin A1c of 6.3 - Continue insulin pump CAD/HTN/HPL - Cardiac catheterization in 2021 as above - Continue home medications Chronic pain/neuropathy - Continue home pain regimen Depression/anxiety - Continue home imipramine and venlafaxine Obesity - BMI 35.5 - Recommend weight loss - complicates treatment, prognosis, outcomes DVT prophylaxis - patient remains on heparin drip CODE STATUS - Full code Charges/Coding Visit Charges Inpatient E&M: 00618 Subs Hosp L2
[2025-05-11 08:40] VITALS: BP 136/59; PULSE 64; RESP 16; TEMP 36.7; O2SAT 98
--- NOTE | 2025-05-11 11:27 | PCM.CONS.C ---
Assessment & Plan Assessment/Plan (1) Non-ST elevation MS (NSTEMI): PLAN: Given history of diabetes, moderate disease in OM, syncope and elevated troponin. She will need ischemic evaluation. Her troponin is likely in the setting of uncontrolled hypertension. Continue with Aspirin 81 mg daily, Atorvastatin and IV heparin Obtain an ECHO (2) Syncope: PLAN: If ischemic evaluation is unrevealing. Event monitor on discharge. Keep her on telemetry (3) Essential hypertension: PLAN: Continue with losartan 50 mg daily (4) HLD (hyperlipidemia): QUALIFIERS: Hyperlipidemia type: unspecified Qualified Code(s): E78.5 - Hyperlipidemia, unspecified PLAN: Continue with atorvastatin 40 mg daily (5) Stage 3 chronic kidney disease due to type 1 diabetes mellitus: PLAN: Stable HPI Consult Data Date of Consult: 05/11/25 HPI Narrative Reason for Consultation: Syncope HPI Narrative: LENA BENSON, is a 59 F with a PMH of : # Type 1 diabetes on insulin pump # CKD stage III # Hypertension # Hyperlipidemia # Neuropathy who presented to [facility] ED on 05/10/2025 after a syncopal episode at home. SHe was eating pizza and she felt she was choking then on her way to [place] she ended up with syncope. When EMS arrived her blood pressure was apparently in the 200s. No history of seizures. She has been having vertigo. In the ED she was normotensive, in normal sinus rhythm and stable on room air at rest. CT brain and C-spine and chest x-ray were with normal limits. she was found to have a troponin trend of 156 > 432. He was started on heparin drip and she is admitted. Patient notably was hospitalized here in October 2021 with a similar presentation. She presented then with nausea and vomiting and was found to have a troponin trend of 603 > 541. Left heart cath showed mild to moderate stenosis in branches off of the RCA and LAD with moderate OM. Echo showed EF 65%, stage I diastolic dysfunction. [facility] Medical History Rib fractures Essential hypertension Nonobstructive atherosclerosis of coronary artery Vision loss of left eye Depression Diabetes Chronic pain Kidney disease Asthma Non-smoker Obesity Diabetes Glaucoma Carpal tunnel syndrome Arthritis Vision problems Neuropathy Kidney disease IBS (irritable bowel syndrome) Hypoglycemia Type 1 diabetes mellitus without complications UTI (urinary tract infection) Chronic sinusitis Allergic rhinitis GERD (gastroesophageal reflux disease) Asthma DM type 1 causing renal disease DM type 1 (diabetes mellitus, type 1) Legal blindness Home Medications ?Medication ?Instructions ?Recorded ?Last Taken ?Type aspirin 81 mg chewable tablet 81 mg PO DAILY@0800 heart health 07/09/15 05/10/25 History estradiol 0.5 mg tablet 0.5 mg PO QHS MENOPAUSE SYMPTOMS 03/06/18 05/09/25 History medroxyprogesterone 2.5 mg tablet 2.5 mg PO QHS HORMONE 03/06/18 05/09/25 History blood-glucose sensor (Dexcom G6 #9 ea 08/26/21 Unknown Rx Sensor device) blood-glucose transmitter (Dexcom #1 ea 08/26/21 Unknown Rx G6 Transmitter device) atorvastatin 40 mg tablet (Lipitor) 40 mg PO DAILY #30 tabs 10/29/21 05/09/25 Rx docusate sodium 100 mg capsule 100 mg PO DAILY PRN Constipation 10/29/21 05/10/25 History (Colace) insulin lispro 100 unit/mL 100 unit continuous subcutaneous 12/28/22 05/10/25 Rx subcutaneous solution (Humalog infusion .continuous #90 mL U-100 Insulin) doxycycline monohydrate 50 mg 50 mg PO DAILY 05/10/25 05/10/25 History capsule fentanyl 62.5 mcg/hour transdermal 1 patch topical Q3D 05/10/25 Unknown History patch gabapentin 400 mg capsule 400 mg PO BID 05/10/25 05/10/25 History imipramine pamoate 100 mg capsule 100 mg PO QHS 05/10/25 05/09/25 History insulin pump cart,auto,BT,G6/7 05/10/25 Unknown History (Omnipod 5 G6-G7 Pods (Gen 5) subcutaneous cartridge) losartan 50 mg tablet 50 mg PO DAILY 05/10/25 05/09/25 History nitrofurantoin macrocrystal 50 mg 50 mg PO MOWEFR 05/10/25 05/09/25 History capsule venlafaxine 150 mg 150 mg PO DAILY 05/10/25 05/10/25 History capsule,extended release 24 hr venlafaxine 75 mg tablet 75 mg PO QHS 05/10/25 05/09/25 History Allergy/AdvReac Type Severity Reaction Status Date / Time diphenhydramine HCl (From Allergy Other Verified 05/10/25 11:04 Benadryl) Iodinated Contrast Media Allergy Vomiting Verified 05/10/25 11:04 (DYEE) metoclopramide HCl (From Allergy Other Verified 05/10/25 11:04 Reglan) prochlorperazine edisylate Allergy Other Verified 05/10/25 11:04 (From Compazine) prochlorperazine maleate Allergy Other Verified 05/10/25 11:04 (From Compazine) levofloxacin (From Levaquin) AdvReac Intermediate anxious Verified 05/10/25 11:04 Family History Other Asthma Breast cancer Heart disease Surgical History History of left heart catheterization (10/29/21) Social History Smoking Status: Former smoker alcohol intake: never substance use type: does not use what type of physical activity do you participate in: other details: occassionally Physical Exam Const alert HEENT normocephalic Eyes PERRL Neck full ROM Lymph Lymphatic: no lymphadenopathy noted Chest inspection of chest normal Resp normal respiratory effort Cardio regular rate and regular rhythm GI normal to inspection, nondistended, normoactive bowel sounds no CVA tenderness Extremity normal to inspection Skin no rashes or lesions noted Objective Data Vital Signs: Vital Signs Temp Pulse Resp BP Pulse Ox O2 Del Method 98.0 F 64 16 136/59 H 98 Room Air 05/11/25 08:40 05/11/25 08:40 05/11/25 08:40 05/11/25 08:40 05/11/25 08:40 05/11/25 08:40 Oxygen Delivery Method Room Air Weight: 200 lb 6.403 oz Body Mass Index (BMI) 35.4 Intake & Output: Intake and Output for Last 24 Hours 05/09/25 05/10/25 05/11/25 23:59 23:59 23:59 Intake Total 1576.83 / 1826.83 312.04 / 312.04 Balance 1576.83 / 1826.83 312.04 / 312.04 Lab / Micro Data 05/11/25 05:47 05/11/25 05:47 Labs: Laboratory Results - last 24 hr 05/10/25 11:25: WBC 4.7, RBC 3.92 L, Hgb 11.7 L, Hct 34.7 L, MCV 88.5, MCH 29.8, MCHC 33.7, RDW Std Deviation 39.3, RDW Coeff of Jose 12.3, Plt Count 159, MPV 9.3, Immature Gran % (Auto) 0.200, Neut % (Auto) 73.0 H, Lymph % (Auto) 20.5, [place] % (Auto) 6.3, Eos % (Auto) 0.0, Baso % (Auto) 0.0, Absolute Neuts (auto) 3.5, Absolute Lymphs (auto) 0.97, Nucleated RBC % 0, Sodium 138, Potassium 4.3, Chloride 100, Carbon Dioxide 27.0, Anion Gap 11, BUN 33 H, Creatinine 1.63 H, Estim Creat Clear Calc 41.84 L, Est GFR (MDRD) Non-Af 36 L, BUN/Creatinine Ratio 20.1 H, Glucose 312 H, Calcium 9.4, Troponin T High Sens 156 H* 05/10/25 11:29: Hemoglobin A1c 6.3 H, TSH 2.330 05/10/25 11:50: Lactic Acid < 1.0 05/10/25 14:00: Troponin T Hi Sens 2 Hr 432 H* 05/10/25 15:30: PT 13.5, INR 1.0, APTT 24.5, Troponin T Hi Sens 4Hr 387 H* 05/10/25 21:10: APTT 247.9 H* 05/11/25 05:47: WBC 5.0, RBC 3.33 L, Hgb 9.8 L, Hct 29.7 L, MCV 89.2, MCH 29.4, MCHC 33.0, RDW Std Deviation 39.8, RDW Coeff of Jose 12.3, Plt Count 181, MPV 9.6, Immature Gran % (Auto) 0.000, Neut % (Auto) 47.5, Lymph % (Auto) 45.3 H, [place] % (Auto) 6.8, Eos % (Auto) 0.2, Baso % (Auto) 0.2, Absolute Neuts (auto) 2.4, Absolute Lymphs (auto) 2.28, Nucleated RBC % 0, APTT 132.0 H*, Sodium 139, Potassium 4.0, Chloride 104, Carbon Dioxide 26.6, Anion Gap 9, BUN 26 H, Creatinine 1.25 H, Estim Creat Clear Calc 52.51, Est GFR (MDRD) Non-Af 50 L, BUN/Creatinine Ratio 20.4 H, Glucose 140 H, Calcium 8.9, Triglycerides 53, Cholesterol 111, LDL Cholesterol, Calc 54, VLDL Cholesterol 11, HDL Cholesterol 47, Cholesterol/HDL Ratio 2.38 Cardiology Labs/Tests 05/10/25 11:25: WBC 4.7, RBC 3.92 L, Hgb 11.7 L, Hct 34.7 L, MCV 88.5, MCH 29.8, MCHC 33.7, Plt Count 159, MPV 9.3, Immature Gran % (Auto) 0.200, Neut % (Auto) 73.0 H, Lymph % (Auto) 20.5, [place] % (Auto) 6.3, Eos % (Auto) 0.0, Baso % (Auto) 0.0, Absolute Neuts (auto) 3.5, Nucleated RBC % 0, Sodium 138, Potassium 4.3, Chloride 100, Carbon Dioxide 27.0, Anion Gap 11, BUN 33 H, Creatinine 1.63 H, Est GFR (MDRD) Non-Af 36 L, BUN/Creatinine Ratio 20.1 H, Glucose 312 H, Calcium 9.4 05/10/25 11:29: Hemoglobin A1c 6.3 H 05/10/25 11:50: Lactic Acid < 1.0 05/10/25 15:30: PT 13.5, INR 1.0, APTT 24.5 05/10/25 21:10: APTT 247.9 H* 05/11/25 05:47: WBC 5.0, RBC 3.33 L, Hgb 9.8 L, Hct 29.7 L, MCV 89.2, MCH 29.4, MCHC 33.0, Plt Count 181, MPV 9.6, Immature Gran % (Auto) 0.000, Neut % (Auto) 47.5, Lymph % (Auto) 45.3 H, [place] % (Auto) 6.8, Eos % (Auto) 0.2, Baso % (Auto) 0.2, Absolute Neuts (auto) 2.4, Nucleated RBC % 0, APTT 132.0 H*, Sodium 139, Potassium 4.0, Chloride 104, Carbon Dioxide 26.6, Anion Gap 9, BUN 26 H, Creatinine 1.25 H, Est GFR (MDRD) Non-Af 50 L, BUN/Creatinine Ratio 20.4 H, Glucose 140 H, Calcium 8.9, Triglycerides 53, Cholesterol 111, VLDL Cholesterol 11, HDL Cholesterol 47, Cholesterol/HDL Ratio 2.38 Rhythm: NSR EKG: NSR ECHO: EF 65% Radiography Diagnostic Testing: Radiology Impression Brain CT 05/10/25 11:13 IMPRESSION: Negative for acute intracranial pathology. Negative for acute abnormality of the cervical spine. Reading Location: [facility] Cervical Spine CT 05/10/25 11:13 IMPRESSION: Negative for acute intracranial pathology. Negative for acute abnormality of the cervical spine. Reading Location: [facility] Chest X-Ray 05/10/25 11:35 IMPRESSION: Negative chest Reading Location: [facility] Risk Score for UA/STEMI Assesmment (YES = 1) Risk Stratification Applicable: No
[2025-05-11 12:42] LABS: Hemoglobin 10.6 g/dL (12.0-15.0)
[2025-05-11 14:40] VITALS: BP 153/77; PULSE 84; RESP 15; TEMP 36.4; O2SAT 100
[2025-05-11 14:50] LABS: Partial Thromboplast Time 43.2 Seconds (24.1-36.2)
[2025-05-11 21:21] LABS: Partial Thromboplast Time 48.0 Seconds (24.1-36.2)
[2025-05-11 22:00] VITALS: BP 156/77; PULSE 94; RESP 16; TEMP 37; O2SAT 100
--- NOTE | 2025-05-11 23:08 | EKG12_ITS ---
Test Reason : AM EKG Blood Pressure : */* mmHG Vent. Rate : 81 BPM Atrial Rate : 81 BPM P-R Int : 166 ms QRS Dur : 88 ms QT Int : 378 ms P-R-T Axes : 5 2 91 degrees QTcB Int : 439 ms Normal sinus rhythm Cannot rule out Septal infarct , age undetermined Abnormal ECG When compared with ECG of 10-May-2025 11:17, MANUAL COMPARISON REQUIRED DATA IS UNCONFIRMED Confirmed by Talib Villafana ([id number]), commercial production editor SHELLEY ABRAHAM ([id number]) on 05/12/2025 1:27:19 PM Referred By: Confirmed By: Talib Villafana
[2025-05-12] MEDS: HEPARIN/D5w 25,000 UNITS 25,000 UNITS/250 ML IV.SOLN. 8 UNITS CONT INF (00:23)
[2025-05-12 04:23] LABS: Hematocrit 31.0 % (37-47); Hemoglobin 10.1 g/dL (12.0-15.0); Mean Corp Hgb Conc 32.6 g/dL (32-36); Mean Corpuscular Volume 89.6 fL (81-99); Mean Platelet Vol. 9.2 fl (6.2-12.0); Platelet Count 171 K/mm3 (150-450); RBC Distribution Width CV 12.3 % (11.6-14.6); RBC Distribution Width SD 40.3 fl (35.1-43.9); Red Blood Count 3.46 M/mm3 (4.2-5.4); White Blood Count 4.1 K/mm3 (4.4-11.0)
[2025-05-12 04:35] LABS: Partial Thromboplast Time 72.0 Seconds (24.1-36.2)
[2025-05-12 05:22] LABS: Anion Gap 8 (5-15); BUN 22 mg/dL (4-19); BUN/Creat Ratio 17.3 RATIO (10-20); Calcium,Total 9.2 mg/dL (7.6-11.0); Carbon Dioxide 29.0 mmol/L (21.0-32.0); Chloride 105 mmol/L (98-108); Estimated Creatinine Clearance 52.93 ml/min (50-250); Glucose 92 mg/dL (70-99); Potassium 4.4 mmol/L (3.3-5.1)
[2025-05-12 05:45] VITALS: BP 108/56; PULSE 82; RESP 16; TEMP 36.6; O2SAT 95
[2025-05-12 08:55] VITALS: BP 174/94; PULSE 88; RESP 16; TEMP 36.7; O2SAT 100
--- NOTE | 2025-05-12 09:24 | STEWCON_ITS ---
Reason For Study Reason For Study: CAD Stress Results Protocol: Antwon Protocol WITH DEFINITY Maximum Predicted HR: 162 bpm Target HR: 138 bpm % Maximum Predicted HR: 69 % Heart Stage Duration Rate BP Comment (mm:ss) (bpm) Baseline 85 160/82No Chest Pain; 2 ML Diluted Definity Antwon Protocol Stage I 3:00 100 164/72No Chest Pain Antwon Protocol Stage II 3:00 107 172/74No Chest Pain; Mild Dyspnea Antwon Protocol Stage No Chest Pain; Mild Dyspnea; Jumpted Off Treadmill-States I Can't Do III 0:15 112 / This Recovery 93 170/82No Chest Pain Stress Duration: 6:15 mm:ss Maximum Stress HR: 112 bpm Baseline Echocardiogram Findings Baseline LV function is normal. Baseline LVEF 60%. Stress Echo Wall motion Data Resting WM Intermediate WM Stress WM Resting Wall Motion Wall Motion Stress No regional wall motion abnormalities All segments Hyperkinetic. noted. Postexercise LVEF greater than 75%. EKG Data The baseline ECG displays normal sinus rhythm. No ischemic ECG changes at 69% of maximum predicted heart rate. ECHO/Stress Test Echo W/Contrast Interpretation Summary Exercised on the treadmill according to the Antwon protocol for 6 minutes and 15 seconds, achieving 69% of maximal predicted heart rate. No ischemic ECG changes noted. Postexercise, no regional wall motion abnormality noted. All segments hyperdyna declan. No echo evidence of ischemia. Ordering Physician: Talib Villafana Referring Physician: Talib Villafana MD Performed By: Talib Villafana MD
--- NOTE | 2025-05-12 09:25 | PN.CARD_ITS ---
Subjective Subjective Patient presented after a choking event that may have lasted upwards of an hour total. Her who is an EMT found her vomiting and the story that she related is that it started about an hour prior to that her blood pressure was 200 systolic in the home environment and she was transported by EMS. This was a similar presentation to what she had had back in October 2021 and at that time underwent left heart catheterization which showed moderate disease in the OM circumflex and small vessel distal disease consistent with her known type 1 diabetes. The patient also has chronic kidney disease and is concerned about her renal insufficiency. This all started with a choking incident. Currently the patient is asymptomatic and resting comfortably. Her troponins were 156, 432, and then down to 387. ECG shows normal sinus rhythm at 81 bpm and old septal infarct cannot be excluded there was no evidence of ischemia or ischemic evolution on her ECGs. Objective Data Vital Signs: Vital Signs Temp Pulse Resp BP Pulse Ox O2 Del Method 98.3 F 88 16 174/94 H 100 Room Air 05/12/25 08:55 05/12/25 08:55 05/12/25 08:55 05/12/25 08:55 05/12/25 08:55 05/12/25 08:55 Oxygen Delivery Method Room Air Weight: 200 lb 6.403 oz Body Mass Index (BMI) 35.4 Intake & Output: Intake and Output for Last 24 Hours 05/10/25 05/11/25 05/12/25 23:59 23:59 23:59 Intake Total 1576.83 / 1826.83 1481.66 / 1481.66 133.72 / 133.72 Balance 1576.83 / 1826.83 1481.66 / 1481.66 133.72 / 133.72 Lab / Micro Data 05/12/25 04:08 05/12/25 04:08 Labs: Laboratory Results - last 24 hr 05/11/25 12:35: Hgb 10.6 L 05/11/25 14:15: APTT 43.2 H 05/11/25 20:45: APTT 48.0 H 05/12/25 04:08: WBC 4.1 L, RBC 3.46 L, Hgb 10.1 L, Hct 31.0 L, MCV 89.6, MCH 29.2, MCHC 32.6, RDW Std Deviation 40.3, RDW Coeff of Jose 12.3, Plt Count 171, MPV 9.2, APTT 72.0 H, Sodium 142, Potassium 4.4, Chloride 105, Carbon Dioxide 29.0, Anion Gap 8, BUN 22 H, Creatinine 1.24 H, Estim Creat Clear Calc 52.93, E st GFR (MDRD) Non-Af 50 L, BUN/Creatinine Ratio 17.3, Glucose 92, Calcium 9.2 Rhythm Strip Rhythm Strip: Sinus Rhythm Rate: 80 Cardiology Labs/Tests 05/11/25 12:35: Hgb 10.6 L 05/11/25 14:15: APTT 43.2 H 05/11/25 20:45: APTT 48.0 H 05/12/25 04:08: WBC 4.1 L, RBC 3.46 L, Hgb 10.1 L, Hct 31.0 L, MCV 89.6, MCH 29.2, MCHC 32.6, Plt Count 171, MPV 9.2, APTT 72.0 H, Sodium 142, Potassium 4.4, Chloride 105, Carbon Dioxide 29.0, Anion Gap 8, BUN 22 H, Creatinine 1.24 H, Est GFR (MDRD) Non-Af 50 L, BUN/Creatinine Ratio 17.3, Glucose 92, Calcium 9.2 Rhythm: EKG: ECHO: Stress Test: Cardiac Cath: PCI: CT Surgery: Holter monitor: EPS: PPM: CXR: Chest CT Scan: Physical Exam Const alert and oriented x3 HEENT normocephalic Eyes EOMs intact bilaterally Neck no JVD and no carotid bruits Chest inspection of chest normal Resp normal respiratory effort and clear to auscultation bilaterally Cardio Rate: regular rate Rhythm: regular rhythm Heart Sounds: S1 normal and S2 normal; Negative for click, gallop or murmur Extremity no pedal edema Skin Skin Narrative: Noted healed ulcerations on both lower extremities in the crouch area. Neuro Neuro Narrative: Alert and oriented x 3 Psych mental status grossly normal Assessment & Plan Assessment/Plan (1) Non-ST elevation MS (NSTEMI): PLAN: Patient's event appears to be precipitated by a syncopal spell and choking incident. Following the choking incident she was vomiting and retching and blood pressure was elevated in the 200?220 systolic range. Her blood pressure remains elevated at 170/94. It appears this is a demand ischemic event. I would recommend that we rule out progressive coronary artery disease with a treadmill stress echo with the patient feels she can easily walk a treadmill. (2) Syncope: QUALIFIERS: Syncope type: unspecified Qualified Code(s): R55 - Syncope and collapse PLAN: The syncope was temporally correlated with a choking incident while eating. The patient's telemetry has shown no ectopy and she remains in sinus rhythm. (3) Diabetes: QUALIFIERS: Diabetes mellitus type: type 1 Diabetes mellitus complication status: with hyperglycemia Qualified Code(s): E10.65 - Type 1 diabetes mellitus with hyperglycemia PLAN: Patient is a type I diabetic since age 13. She is on insulin pump hemoglobin A1c has been well-controlled by her report. (4) Nonobstructive atherosclerosis of coronary artery: PLAN: Patient had history of catheterization done back in October 2021. That showed small vessel distal disease and a 40% lesion in OM branch of the circumflex. (5) Essential hypertension: PLAN: Patient's blood pressure is still elevated she is on multiple drug therapy. Would recommend utilizing losartan and restarting her 50 mg home dose. If further medical therapy is indicated addition of hydrochlorothiazide might be indicated. PLAN: Plan 1. Reinstitute home losartan 50 mg daily. 2. If blood pressure not well-controlled would add hydrochlorothiazide 25 mg with the losartan. 3. Will obtain treadmill stress echo test today. 4. Further recommendations to follow. Should the stress test be markedly abnormal left heart catheterization would be indicated. Would like to avoid left heart catheterization given her diabetes and renal issues. Charges/Coding Visit Charges Inpatient E&M: 40015 Subs Hosp L2
--- NOTE | 2025-05-12 09:29 | PN.HOSP_ITS ---
Reason for Visit Chief Complaint: Syncopal episode Subjective Subjective Patient is a 59-year-old lady who presented with a syncopal episode found to have markedly elevated troponin consistent with acute non-STEMI treatment initiated per protocol admitted to a monitored bed with consultation placed to cardiology Objective Data Objective Data Vital Signs: Vital Signs Temp Pulse Resp BP Pulse Ox O2 Del Method 98.3 F 88 16 174/94 H 100 Room Air 05/12/25 08:55 05/12/25 08:55 05/12/25 08:55 05/12/25 08:55 05/12/25 08:55 05/12/25 08:55 Oxygen Delivery Method Room Air Weight: 90.9 kg Body Mass Index (BMI) 35.4 Intake & Output: Intake and Output for Last 24 Hours 05/10/25 05/11/25 05/12/25 23:59 23:59 23:59 Intake Total 1576.83 / 1826.83 1481.66 / 1481.66 133.72 / 133.72 Balance 1576.83 / 1826.83 1481.66 / 1481.66 133.72 / 133.72 Lab / Micro Data 05/12/25 04:08 05/12/25 04:08 Labs: Laboratory Results - last 24 hr 05/11/25 12:35: Hgb 10.6 L 05/11/25 14:15: APTT 43.2 H 05/11/25 20:45: APTT 48.0 H 05/12/25 04:08: WBC 4.1 L, RBC 3.46 L, Hgb 10.1 L, Hct 31.0 L, MCV 89.6, MCH 29.2, MCHC 32.6, RDW Std Deviation 40.3, RDW Coeff of Jose 12.3, Plt Count 171, MPV 9.2, APTT 72.0 H, Sodium 142, Potassium 4.4, Chloride 105, Carbon Dioxide 29.0, Anion Gap 8, BUN 22 H, Creatinine 1.24 H, Estim Creat Clear Calc 52.93, E st GFR (MDRD) Non-Af 50 L, BUN/Creatinine Ratio 17.3, Glucose 92, Calcium 9.2 Physical Exam Narrative GENERAL: cooperative HEENT: Atraumatic; normocephalic EYES; Anicteric, Normal Conjunctiva NECK; supple, normal thyroid, RESPIRATORY: Diminished to auscultation CARDIOVASCULAR: Regular S1 S2, GI: soft, normoactive bowel sounds, : No Renal angle tenderness; EXTREMITIES: No edema, no clubbing, MUSCULOSKELETAL: no muscle wasting NEURO: Awake; no lateralizing signs. SKIN: No Rash PSYCH; Flat affect Assessment & Plan Assessment/Plan (1) Non-ST elevation LA (NSTEMI): (2) Syncope: (3) Nonobstructive atherosclerosis of coronary artery: (4) Anemia: PLAN: Plan Patient is a 59-year-old lady who presented with a syncopal episode found to have markedly elevated troponin consistent with acute non-STEMI treatment initiated per protocol admitted to a monitored bed with consultation placed to cardiology 1. Syncopal episode ? Event leading to patient's syncope not clear. Patient felt she had choked on a piece of food. Patient was found down by the . Admitted to monitored bed for continuous telemetry every shift orthostatic check in addition to 2D echo 2. Acute non-STEMI ? Patient left heart catheterization in October 2021 demonstrated mild to moderate stenosis in the branches of RCA and LAD. Seen by cardiology with plans for patient to undergo 2D echo and nuclear stress test 3.Anemia ? Secondary to chronic disorder monitoring H&H and transfuse if patient becomes symptomatic or hemoglobin falls below 7 4. Acute kidney injury -superimposed on chronic kidney disease stage IIIa rehydrated with subsequent monitoring of electrolytes ordered 5. Diabetes mellitus type 1 ? Patient is on insulin pump patient to manage 6. Chronic pain syndrome/neuropathy ? Patient has a fentanyl patch 7. Class II obesity with BMI of 36 ? Complicating care weight loss advised 8. Depression/anxiety - Continued home imipramine and venlafaxine 9. DVT prophylaxis - patient remains on heparin drip Time spent in the patient's overall evaluation,decision-making process, review of diagnostic data, adjustment of management, discussion with other providers, nursing nursing and ancillary staff involved in patient's care documentation, 38 Minutes Charges/Coding Visit Charges Inpatient E&M: 65415 Subs Hosp L2
[2025-05-12 10:24] VITALS: BP 173/74
--- NOTE | 2025-05-12 10:32 | CASEMGMT ---
AUDRA HENRY Assessment Face to Face with patient for initial transition planning/care coordination assessment. AUDRA HENRY introduced self and role at [facility], pt voices understanding. Pt is A&Ox4 and is resting comfortably in bed and is calm. Pt at bedside. Care providers, pharmacy, and demographics verified. Admitting dx: NSTEMI LACE Strata: 3 PCP: Pat Dover Specialists: Neftaly (Endocrinology through ), Dr Vital (Urology through ) Preferred Pharmacy: [facility] @ [place] Insurance: MMO Prescription Benefit: Yes LNOK: Osvaldo (H), Edward (Son) Living Arrangements: Pt lives with her in a 2 story home with 1 step to enter ADLs/IADLs: Indep. 6-click:24 Transportation: . Pt reports that she is blind in one eye and does not drive DME: CBGM with sensors and insulin pump. Backup manual BGM with sufficient testing supplies including lancets, test strips, EtOH swabs, and pen needles for insulin shots if needed. Denies needs or concerns HHC/SNF: Denies hx or needs Pt?s goal: Home Plan: Home with once medically ready, follow for anticoag. Pt denies the need for any additional needs or resources and states that she feels safe returning home with her once medically ready. Cardio consult. Per chart review, plan for stress test today and possible cardiac cath subsequently, if needed. Pt denies further questions or concerns at this time. Enedelia Cardozo RN, CM
[2025-05-12 11:40] VITALS: BP 119/56; PULSE 92; RESP 18; TEMP 36.6; O2SAT 98
[2025-05-12 15:40] VITALS: BP 154/77; PULSE 87; RESP 16; TEMP 36.8; O2SAT 96
[2025-05-12 22:25] VITALS: BP 134/79; PULSE 88; RESP 18; TEMP 36.9; O2SAT 97
[2025-05-12] MEDS: 0.9% Saline Lock 10 ML Syringe IV (22:33)
[2025-05-12] MEDS: FENTANYL 1 EACH TD (22:40)
[2025-05-13 04:30] VITALS: BP 134/62; PULSE 82; RESP 16; TEMP 36.8; O2SAT 96
[2025-05-13 06:57] VITALS: O2SAT 94
[2025-05-13 07:39] VITALS: BP 151/75; PULSE 85; RESP 14; TEMP 36.3; O2SAT 98
--- NOTE | 2025-05-13 08:13 | PN.CARD_ITS ---
Subjective Subjective Patient sleeping soundly in the bed. She denies any chest discomfort denies any recurring lightheaded or near syncopal spells. The patient was only able to do 69% of age-predicted heart rate going low over 6 minutes on a treadmill yesterday. The echocardiogram revealed normal LV function and improved LV function with activity. However this was a suboptimal test. A pharmacologic nuclear stress test is scheduled for today. Objective Data Vital Signs: Vital Signs Temp Pulse Resp BP Pulse Ox O2 Del Method 97.3 F L 85 14 151/75 H 98 Room Air 05/13/25 07:39 05/13/25 07:39 05/13/25 07:39 05/13/25 07:39 05/13/25 07:39 05/13/25 07:39 Oxygen Delivery Method Room Air Weight: 200 lb 6.403 oz Body Mass Index (BMI) 35.4 Intake & Output: Intake and Output for Last 24 Hours 05/11/25 05/12/25 05/13/25 23:59 23:59 23:59 Intake Total 1481.66 / 1481.66 933.72 / 933.72 Balance 1481.66 / 1481.66 933.72 / 933.72 Lab / Micro Data Attestation: I reviewed the patient's lab results. 05/12/25 04:08 05/12/25 04:08 Rhythm Strip Rhythm Strip: Sinus Rhythm Rate: 79 Cardiology Labs/Tests Rhythm: EKG: ECHO: Stress Test: Cardiac Cath: PCI: CT Surgery: Holter monitor: EPS: PPM: CXR: Chest CT Scan: Radiography Diagnostic Testing: Radiology Impression Echocardiogram 05/10/25 15:29 Interpretation Summary The left ventricular ejection fraction is 60 %. Ordering Physician: Shon Aguilera Referring Physician: TRUPTI ROSARIO Performed By: Judith Jaeger RCS Stress Echocardiogram 05/12/25 09:24 Interpretation Summary Exercised on the treadmill according to the Antwon protocol for 6 minutes and 15 seconds, achieving 69% of maximal predicted heart rate. No ischemic ECG changes noted. Postexercise, no regional wall motion abnormality noted. All segments hyperdynamic. No echo evidence of ischemia. Ordering Physician: Talib Villafana Referring Physician: Talib Villafana MD Performed By: Talib Villafana MD Physical Exam Const alert and oriented x3 HEENT normocephalic Eyes EOMs intact bilaterally Neck no JVD Chest inspection of chest normal Resp normal respiratory effort and clear to auscultation bilaterally Cardio Rate: regular rate Rhythm: regular rhythm Heart Sounds: S1 normal and S2 normal; Negative for click, gallop or murmur Extremity no pedal edema Neuro Neuro Narrative: Alert and oriented x 3 Psych mental status grossly normal Assessment & Plan Assessment/Plan (1) Non-ST elevation LA (NSTEMI): PLAN: This appears to have been a demand type ischemic event related to her choking incident. Pharmacologic nuclear stress test is pending at this time as the patient does have known small vessel distal disease. Her last then optimal treadmill walking test yesterday showed no evidence of ischemia but at a low level of exercise she only reached 69% of age-predicted heart rate. The pharmacologic nuclear stress test shows no significant ischemia and the patient could be discharged to home and follow-up with her primary service for long-term management. (2) Syncope: QUALIFIERS: Syncope type: unspecified Qualified Code(s): R55 - Syncope and collapse PLAN: Patient's syncopal spell was precipitated by a choking incident. This is the second time she has had something similar to this occur. I went over with her cautionary measures to be careful that she is conscious of swallowing appropriately and eating slowly. (3) Diabetes: QUALIFIERS: Diabetes mellitus complication status: with hyperglycemia Diabetes mellitus type: type 1 Qualified Code(s): E10.65 - Type 1 diabetes mellitus with hyperglycemia PLAN: She will continue with her current aggressive diabetic management in her outpatient setting. (4) Essential hypertension: PLAN: Blood pressure is better controlled with reinstitution of her losartan. She may need additional medical therapy which could be monitored to her primary service. PLAN: Plan 1. Pharmacologic nuclear stress test today. 2. If no evidence of significant ischemia the patient can be discharged to home. 3. The patient can follow-up with her primary service. If requested she can follow-up with the [facility] in the future. Charges/Coding Visit Charges Inpatient E&M: 33268 Subs Hosp L2
--- NOTE | 2025-05-13 08:35 | PCM.PN.HOSP ---
Reason for Visit Chief Complaint: Syncopal episode Subjective Subjective Patient stress echo the day prior was reported to be suboptimal due to patient not being able to reach the target heart rate. Scheduled to undergo nuclear stress test this a.m. Objective Data Objective Data Vital Signs: Vital Signs Temp Pulse Resp BP Pulse Ox O2 Del Method 97.3 F L 85 14 151/75 H 98 Room Air 05/13/25 07:39 05/13/25 07:39 05/13/25 07:39 05/13/25 07:39 05/13/25 07:39 05/13/25 07:50 Oxygen Delivery Method Room Air Weight: 90.9 kg Body Mass Index (BMI) 35.4 Intake & Output: Intake and Output for Last 24 Hours 05/11/25 05/12/25 05/13/25 23:59 23:59 23:59 Intake Total 1481.66 / 1481.66 933.72 / 933.72 Balance 1481.66 / 1481.66 933.72 / 933.72 Lab / Micro Data 05/12/25 04:08 05/12/25 04:08 Radiography Diagnostic Testing: Radiology Impression Echocardiogram 05/10/25 15:29 Interpretation Summary The left ventricular ejection fraction is 60 %. Ordering Physician: Shon Aguilera Referring Physician: TRUPTI ROSARIO Performed By: Judith Jaeger RCS Stress Echocardiogram 05/12/25 09:24 Interpretation Summary Exercised on the treadmill according to the Antwon protocol for 6 minutes and 15 seconds, achieving 69% of maximal predicted heart rate. No ischemic ECG changes noted. Postexercise, no regional wall motion abnormality noted. All segments hyperdynamic. No echo evidence of ischemia. Ordering Physician: Talib Villafana Referring Physician: Talib Villafana MD Performed By: Talib Villafana MD Rhythm Strip Rhythm Strip: Sinus Rhythm Rate: 79 Physical Exam Narrative GENERAL: cooperative HEENT: Atraumatic; normocephalic EYES; Anicteric, Normal Conjunctiva NECK; supple, normal thyroid, RESPIRATORY: Diminished to auscultation CARDIOVASCULAR: Regular S1 S2, GI: soft, normoactive bowel sounds, : No Renal angle tenderness; EXTREMITIES: No edema, no clubbing, MUSCULOSKELETAL: no muscle wasting NEURO: Awake; no lateralizing signs. SKIN: No Rash PSYCH; Flat affect Assessment & Plan Assessment/Plan (1) Non-ST elevation [place] (NSTEMI): (2) Syncope: QUALIFIERS: Syncope type: unspecified Qualified Code(s): R55 - Syncope and collapse (3) Nonobstructive atherosclerosis of coronary artery: (4) Anemia: PLAN: Plan Patient is a 59-year-old lady who presented with a syncopal episode found to have markedly elevated troponin consistent with acute non-STEMI treatment initiated per protocol admitted to a monitored bed with consultation placed to cardiology 1. Syncopal episode ? Event leading to patient's syncope not clear. Patient felt she had choked on a piece of food. Patient was found down by the . Admitted to monitored bed for continuous telemetry every shift orthostatic check in addition to 2D echo 2. Acute non-STEMI ? Patient left heart catheterization in October 2021 demonstrated mild to moderate stenosis in the branches of RCA and LAD. Seen by cardiology with plans for patient to undergo 2D echo and nuclear stress test ? 05/13/2025;Patient stress echo the day prior was reported to be suboptimal due to patient not being able to reach the target heart rate. Scheduled to undergo nuclear stress test this a.m. 3.Anemia ? Secondary to chronic disorder monitoring H&H and transfuse if patient becomes symptomatic or hemoglobin falls below 7 4. Acute kidney injury -superimposed on chronic kidney disease stage IIIa rehydrated with subsequent monitoring of electrolytes ordered 5. Diabetes mellitus type 1 ? Patient is on insulin pump patient to manage 6. Chronic pain syndrome/neuropathy ? Patient has a fentanyl patch 7. Class II obesity with BMI of 36 ? Complicating care weight loss advised 8. Depression/anxiety - Continued home imipramine and venlafaxine 9. DVT prophylaxis - patient remains on heparin drip Time spent in the patient's overall evaluation,decision-making process, review of diagnostic data, adjustment of management, discussion with other providers, nursing nursing and ancillary staff involved in patient's care documentation, 38 Minutes Charges/Coding Visit Charges Inpatient E&M: 71568 Subs Hosp L2
--- NOTE | 2025-05-13 12:07 | STRESSREP_ITS ---
Stress Test Report Date: 05/13/2025 Procedure: Pharmacologic stress nuclear imaging study Indications: Elevated troponin Consent: Per the patient Procedure: The patient underwent pharmacologic (Regadenoson 0.4mg ) evaluation with a peak heart rate of 88 beats per minute (54%predicted maximal heart rate) and a peak blood pressure of 132/80 mmHg. The baseline ECG demonstrated sinus rhythm. The peak pharmacologic ECG did not show any ischemic changes. There were no cardiac dysrhythmias pretest, during pharmacologic infusion, or recovery. There was no complaint of chest discomfort during pharmacologic infusion or recovery. The patient was injected with 11.8 millicuries of technetium 99m Cardiolite and subsequently rest SPECT Cardiolite nuclear imaging was obtained in the horizontal long, vertical long, and short axis views. The patient underwent pharmacologic (Regadenoson) evaluation. The patient was injected with 36.0 millicuries of technetium 99m Cardiolite and subsequently stress SPECT Cardiolite nuclear imaging was obtained in the horizontal long, vertical long, and short axis views. A gated Cardiolite study at peak stress was obtained. The examination was stopped secondary to completion of protocol. Rest and stress SPECT Cardiolite nuclear imaging status post realignment, normalization, and attenuation correction demonstrate mildly reduced perfusion of the anterior wall post pharmacological stress.. There is end systolic thickening and brightening. The gated Cardiolite study demonstrates myocardial thickening and inward wall motion. The reported LVEF is 64%. Impression: 1. Pharmacologic (Regadenoson) evaluation 2. Peak pharmacologic ECG with no ischemic changes. 3. There were no cardiac dysrhythmias pretest, during pharmacologic infusion, or recovery. 5. Mildly reduced perfusion of the anterior wall post pharmacological stress, suggestive of mild anterior ischemia. 6. The gated Cardiolite study reports an LVEF of 64%. This note was generated with [employer] software. It may contain incorrect words, spelling, and punctuation that were not noted in checking the note before signing.
[2025-05-13 13:23] VITALS: BP 103/71; PULSE 92; RESP 16; TEMP 36.9; O2SAT 100
--- NOTE | 2025-05-13 13:24 | DS.PCM_ITS ---
Providers Date of Admission: 05/10/25 Date of Discharge: 05/13/25 Primary Care Physician: Dr. Pat Dover MD Consultations 05/10/25 16:23 Consult: Cardiology Routine Consulting Provider: Robby Ayala Reason for Consult: NSTEMI EMERGENT Consult: No MD Notified: Yes Date Notified: 05/10/25 Time Notified: 16:32 Method of Notification: Verbal Reason For Visit: NSTEMI Diagnosis Discharge Diagnosis (1) Non-ST elevation [place] (NSTEMI): Status: Acute Code(s): I21.4 - Non-ST elevation (NSTEMI) myocardial infarction (2) Syncope: Status: Acute Code(s): R55 - Syncope and collapse Qualifiers: Syncope type: unspecified Qualified Code(s): R55 - Syncope and collapse (3) Nonobstructive atherosclerosis of coronary artery: Status: Acute Code(s): I25.10 - Atherosclerotic heart disease of [place] coronary artery without angina pectoris (4) Anemia: Status: Acute Code(s): D64.9 - Anemia, unspecified Plan Patient is a 59-year-old lady who presented with a syncopal episode found to have markedly elevated troponin consistent with acute non-STEMI treatment initiated per protocol admitted to a monitored bed with consultation placed to cardiology 1. Syncopal episode ? Event leading to patient's syncope not clear. Patient felt she had choked on a piece of food. Patient was found down by the . Admitted to monitored bed for continuous telemetry every shift orthostatic check in addition to 2D echo 2. Acute non-STEMI ? Patient left heart catheterization in October 2021 demonstrated mild to moderate stenosis in the branches of RCA and LAD. Seen by cardiology with plans for patient to undergo 2D echo and nuclear stress test ? 05/13/2025;Patient stress echo the day prior was reported to be suboptimal due to patient not being able to reach the target heart rate. Scheduled to undergo nuclear stress test this a.m. ? Patient nuclear stress test did show mild area of ischemia in the anterior area. Case was discussed with Dr. Villafana with cardiology patient has known small vessel disease. Patient was discharged home with guideline directed medical therapy with losartan aspirin as well as statin therapy. Plan is for patient to follow-up with cardiology in office within a month. Findings and recommendations discussed with patient and the 3.Anemia ? Secondary to chronic disorder monitoring H&H and transfuse if patient becomes symptomatic or hemoglobin falls below 7 4. Acute kidney injury -superimposed on chronic kidney disease stage IIIa rehydrated with subsequent monitoring of electrolytes ordered 5. Diabetes mellitus type 1 ? Patient is on insulin pump patient to manage 6. Chronic pain syndrome/neuropathy ? Patient has a fentanyl patch 7. Class II obesity with BMI of 36 ? Complicating care weight loss advised 8. Depression/anxiety - Continued home imipramine and venlafaxine 9. DVT prophylaxis - patient remains on heparin drip Time spent in the patient's overall evaluation,decision-making process, review of diagnostic data, adjustment of management, discussion with other providers, nursing nursing and ancillary staff involved in patient's care documentation, 38 Minutes Medications at Discharge Home Medications aspirin 81 mg chewable tablet 81 mg PO DAILY@0800 heart health 07/09/15 estradiol 0.5 mg tablet 0.5 mg PO QHS MENOPAUSE SYMPTOMS 03/06/18 medroxyprogesterone 2.5 mg tablet 2.5 mg PO QHS HORMONE 03/06/18 blood-glucose sensor (Dexcom G6 Sensor device) #9 ea 08/26/21 blood-glucose transmitter (Dexcom G6 Transmitter device) #1 ea 08/26/21 atorvastatin 40 mg tablet (Lipitor) 40 mg PO DAILY #30 tabs 10/29/21 docusate sodium 100 mg capsule (Colace) 100 mg PO DAILY PRN Constipation 10/29/21 insulin lispro 100 unit/mL subcutaneous solution (Humalog U-100 Insulin) 100 unit continuous subcutaneous infusion .continuous #90 mL 12/28/22 doxycycline monohydrate 50 mg capsule 50 mg PO DAILY 05/10/25 fentanyl 62.5 mcg/hour transdermal patch 1 patch topical Q3D 05/10/25 gabapentin 400 mg capsule 400 mg PO BID 05/10/25 imipramine pamoate 100 mg capsule 100 mg PO QHS 05/10/25 insulin pump cart,auto,BT,G6/7 (Omnipod 5 G6-G7 Pods (Gen 5) subcutaneous cartridge) 05/10/25 losartan 50 mg tablet 50 mg PO DAILY 05/10/25 nitrofurantoin macrocrystal 50 mg capsule 50 mg PO MOWEFR 05/10/25 venlafaxine 150 mg capsule,extended release 24 hr 150 mg PO DAILY 05/10/25 venlafaxine 75 mg tablet 75 mg PO QHS 05/10/25 Physical Exam Narrative GENERAL: cooperative HEENT: Atraumatic; normocephalic EYES; Anicteric, Normal Conjunctiva NECK; supple, normal thyroid, RESPIRATORY: Diminished to auscultation CARDIOVASCULAR: Regular S1 S2, GI: soft, normoactive bowel sounds, : No Renal angle tenderness; EXTREMITIES: No edema, no clubbing, MUSCULOSKELETAL: no muscle wasting NEURO: Awake; no lateralizing signs. SKIN: No Rash PSYCH; Flat affect Weight / BMI Weight Weight: 90.9 kg Body Mass Index (BMI) 35.4 ABG / Lab / Microbiology Data 05/12/25 04:08 05/12/25 04:08 D/C Instructions Discharge Activity: Return to Normal Activity Call your doctor if you observe: Fever of 101 or Higher, Shortness of breath, Fainting spells and Chest pain DC O2, CPAP, BIPAP Needs Home O2 Discharge instructions: No Meaningful Use Info Meaningful Use Meaningful Use Diagnoses (Choose all that apply): None applicable Discharge Plan Admission Admit Date/Time: 05/10/25 15:25 Attending Provider: Osvaldo Caldera Primary Care Provider: Pat Dover Consulting Providers: Robby Ayala; Shon Aguliera; Alethea Hillman Discharge Orders/Prescriptions Prescriptions: Continued aspirin 81 MG tablet,chewable 81 mg PO DAILY@0800 medroxyprogesterone 2.5 MG tablet 2.5 mg PO QHS estradiol 0.5 MG tablet 0.5 mg PO QHS docusate sodium [Colace] 100 mg Capsule 100 mg PO DAILY PRN (Reason: Constipation) Rx Instructions: pt states she take 9 every day atorvastatin [Lipitor] 40 mg tablet 40 mg PO DAILY Qty: 30 0RF losartan 50 mg tablet 50 mg PO DAILY venlafaxine 75 mg tablet 75 mg PO QHS Patient Comments: 150MG AM AND 75MG HS gabapentin 400 mg capsule 400 mg PO BID imipramine pamoate 100 mg capsule 100 mg PO QHS venlafaxine 150 mg capsule,extended release 24hr 150 mg PO DAILY Patient Comments: 150MG AM AND 75MG HS fentanyl 62.5 mcg/hour patch 72 hour 1 patch topical Q3D (DME) Omnipod 5 G6-G7 Pods (Gen 5) Cartridge subcut doxycycline monohydrate 50 mg capsule 50 mg PO DAILY nitrofurantoin macrocrystal 50 mg capsule 50 mg PO MOWEFR Rx Instructions: must administer with a meal/food (DME) Dexcom G6 Sensor Device See Rx Instructions .ROUTE .MEDSUPPLY Qty: 9 3RF Rx Instructions: As directed (DME) Dexcom G6 Transmitter Device See Rx Instructions .ROUTE .MEDSUPPLY Qty: 1 3RF Rx Instructions: As directed insulin lispro [Humalog U-100 Insulin] 100 unit/mL solution 100 unit continuous subcutaneous infusion .continuous Qty: 90 0RF Referrals / Follow Up: Pat Dover MD [Primary Care Provider] - Talib Villafana MD [Med Staff - Active Staff] - 06/05/25 9:30 am (APPOINTMENT WITH DARYL RODRÍGUEZ) Disposition Disposition (needs filled in before D/C Order can be placed): Home, Self Care Charges/Coding Visit Charges Inpatient E&M: 63992 Disch Hosp >30min
[2025-05-13 14:00] VITALS: BP 103/71; PULSE 92; RESP 16; TEMP 36.9; O2SAT 100
== END 2025-05-13 14:54 | disposition home or self-care (01) ==
LOC: ED 15:31 → PCU 05-11 06:40
PROVIDERS: Internal Medicine; Admitting Provider Hospitalist; Emergency Provider Emergency Medicine; PCP Pediatrics; Visit Provider Internal Medicine
DX: I21.4 Non-ST elevation (NSTEMI) myocardial infarction (principal); E10.22 Type 1 diabetes mellitus with diabetic chronic kidney disease; E10.40 Type 1 diabetes mellitus with diabetic neuropathy, unspecified; Z79.4 Long term (current) use of insulin; N18.32 Chronic kidney disease, stage 3b; D63.8 Anemia in other chronic diseases classified elsewhere; E66.812 Obesity, class 2; I12.9 Hypertensive chronic kidney disease with stage 1 through stage 4 chronic kidney disease, or unspecified chronic kidney disease; F32.A Depression, unspecified; E78.5 Hyperlipidemia, unspecified; I25.10 Atherosclerotic heart disease of native coronary artery without angina pectoris; H54.7 Unspecified visual loss; F41.9 Anxiety disorder, unspecified; R55 Syncope and collapse; G89.4 Chronic pain syndrome; Z87.891 Personal history of nicotine dependence; Z79.82 Long term (current) use of aspirin; Z79.899 Other long term (current) drug therapy; Z96.41 Presence of insulin pump (external) (internal); Z68.35 Body mass index [BMI] 35.0-35.9, adult; Z82.49 Family history of ischemic heart disease and other diseases of the circulatory system; R94.31 Abnormal electrocardiogram [ECG] [EKG]
CPT/HCPCS: 36415; 70450; 71046; 72125; 78452; 80048; 80061; 83036; 83605; 84443; 84484; 85018; 85025; 85027; 85610; 85730; 93005; 93017; 93306; 93350; 96361; 96365; 96366; 96376; 99221; 99285; A9500; Q9957; A4216; C8928; C8929; G0378; J2785